=== PATIENT | male | born 1945 | race Caucasian/White ===

== ENCOUNTER 2017-04-12 09:00 | Outpatient (RCR) | payer OTHER, SELFPAY ==
--- NOTE | 2017-04-12 11:00 | IE_ITS ---
Date: April 12, 2017 Referring: Tien Galicia DO M.D. Diagnosis: L leg pain P.T. Diagnosis: Lumbago with L sciatica SUBJECTIVE: History of Present Illness: Kam complains of continuous discomfort throughout the lower lumbar area L greater than R. She is worse with lying and sitting. Interferes with sleeping pattern. Is most comfortable when lying on his R side. His symptoms also occur with weight bearing activities greater than 100 feet. Has a.m. stiffness for approximately 10-15 mins. His 2nd complaint is of continuous sciatica that is L buttock discomfort which migrates throughout the anterolateral aspect of the L thigh, knee and sometimes circumferentially throughout the entire L LE. He also notes occasional numb like sensation throughout the lower leg. These symptoms tend to occur with the same movement pattern and positions as the low back pain. Does not hurt with coughing or sneezing. He also complains of shortness of breath after walking greater than 100 feet. A 72 year old male who is well known to me in the past with chronic lumbago and L sciatica. Has had good response to PT in the past and is referred back. He has had 3 epidural injections last year without any change in his symptoms. Pain Ratin-8/10 Pain Location: Throughout the lower lumbar area, L pelvic brim greater than R as well as L buttock, anterolateral aspect of the R hip and thigh, circumferentially throughout the L lower leg. Current Level of Function: Significant difficultly donning and doffing shoes, socks, squatting, carrying items, performing household duties, walking more than 100 feet, stairclimbing, sitting or standing for more than 10-15 mins. Previous Treatment: Epidural injection, physical therapy. Social: Lives alone in [place], independent with all ADL's. Comorbidities: COPD, Diabetes, hypertension. Falls in the last year: __x__ No ____Yes - How many? ____ - (if over 2, balance SM needs to be completed) Reported hospitalizations in the last year - __x__ No ____ Yes - Dates of admission/reason: Medications: Oxycodone, insulin, Lyrica, Astatine. I do not have his drug list with me. Quality of Life: ____ Excellent __x__ Good ____ Fair ____ Poor Standardized Measures: LEFS score: 80% OBJECTIVE: Posture: Moderately obese, shoulders and pelvis are level with accentuated lumbar lordosis, (-) lateral shift. Observation: (behavior, atrophy, skin color, etc.) Talkative, complaints of pain with all maneuvers, anxious. Gait: Ambulates without assistive device without antalgia. Is able to walk on his heel and toes without weakness, but requires stand by supervision, with occasional contact guarding. Palpation: Has increased tone and tenderness throughout the lumbar paraspinals , QL, piriformis, gluts L greater than R. ROM: His lumbar movements in the upright position flexion distance between fingertips to floor is 6-7 with end range drawing throughout his low back area , to lesser degree hamstring. Extension is +10-15 degrees and sidebending is hypomobile as well as sidegliding. All these movements create discomfort throughout the low back area and pelvic brims depending on which direction he is moving in. His hip movements are limited within an articular pattern L greater than R. His L hip flexion is limited to approximately 90 degrees and IR at 0 degrees with end range discomfort throughout the lateral aspect of the L hip. No significant groin pain. His L knee motion is limited to -10-15 degrees of extension and flexion is at 135 without pain on movement, but end range discomfort throughout the anterior aspect of the knee. L knee motion is 0 to 140 degrees. Is hypomobile talocrural, subtalar and mid tarsal movements of the R ankle/foot complex, but without pain on movement. Joint Accessory Motion: He has hypomobility with pain when attempting PA glides to the thoracic and lumbar segments as well as costovertebral articulations. Strength: Has full motor control throughout, but fatigues quickly to the gluts with repetitive movements. Neuro: KJ's +2, AJ's +1 and symmetrical. Special Tests: (-) SLR bilaterally, but tight hamstrings on L at 45 degrees, R 60 degrees. Quad length 12 heel to buttocks L tighter than the R. Treatment: Today consisted of the evaluation along with development of a home exercise program and patient education. IE: [id number] Therapeutic procedures ([id number]). Direct treatment time: 60 mins Total treatment time: 60 mins ASSESSMENT: Patient is a 72-year-old male, referred for PT services with the diagnosis of L leg pain. Patient presents with clinical signs and symptoms consistent with lumbago with L sciatica, as demonstrated by the following impairment level findings: limitation throughout the entire spinal, hip, L knee articular structures, along with extensive soft tissue tightness and myofascial trigger points throughout the lumbar paraspinals, piriformis, QL's, gluts, etc. . . Impairments are contributing to the following functional limitations: pain with all positions, particularly with lying and sitting and inability to walk more than 100 feet or so. Patient is assessed as: ____ Low 41879 __x__ Moderate 74250 ____ High 84524 complexity, based on the following: History: (list) Chronic LBP and L sciatica along with diabetes, hyperlipidemia, COPD, hypertension, etc. . . Examination: (list) Significant functional impairments as above. Presentation: (list) Evolving Decision-Making: (list standardized measure) HIGH based on LEFS of 80% __x__ Patient requires skilled PT intervention to remediate the above functional limitations to return to: __x__ Premorbid level of function __x__ Improve QOL Prognosis: ____ Excellent __x__ Good __x__ Fair ____ Poor G-Codes (fill in modifier after appropriate code): Patient's primary functional limitation is in the category of: __x__ Mobility - walking and moving around : [id number] Projected goal: __X__ Mobility - walking and moving around: [id number] STG: __6__ weeks. 1: Increase spinal, hip and knee mobility along with decreasing myofascial trigger points and strengthening the core in hopes to reduce pain so he is more comfortable with sitting, lying, and can walk for greater than 500 feet, along with carrying out more of his household responsibilities, etc. . . LTG: __12__ weeks. 1: Improve quality of life 2: Return to premorbid level of function. PLAN: Session today consisted of the evaluation along with instructing and issuing him a written, and illustrated home exercise program consisting of lumbar, hip flexibility exercises, as well as stretching to ITB and hamstrings, and anti-gravity strengthening exercises to the gluts. Will see him 2x a week for next 4 weeks consisting of spinal and hip mobilization along with desensitization techniques, modalities prn. Possibly lumbar traction, which he has responded well to in the past. Will modify his program as symptoms dictate. Thank you for this referral. Please do not hesitate to contact me with any questions or concerns regarding this patient's plan of care. *Dr. Galicia, please sign this evaluation if you are in agreement with the above stated goals and plan of care. Tien Galicia, DO
--- NOTE | 2017-04-17 10:05 | PTTR_ITS ---
DATE: 04/17/17 SUBJECTIVE: Kam stating that most of his discomfort is located on the left low back into the buttock and down the lateral aspect of his leg. He reports he is very deconditioned due to his breathing issues and pain with his back. OBJECTIVE: Manual therapy: ([id number]). Pt receives lumbopelvic stretching including single knee to chest, piriformis stretch, hamstring stretching bilaterally. Unload lumbar spine via traction unilateral and bilaterally which gives pt good symptomatic relief. Mobilize left hip into flexion, abduction and IR/ER to his tolerance. In prone perform AP glides to the thoracic and lumbar spine gentle followed by STM to the QL, lumbar paraspinals, piriformis and gluteals. Trigger point release to the glut med and perform strumming to the paraspinals. He has tone noted to the right paraspinals and tenders through the right QL and I clear this out. He ends with non-billable estim and moist hot pack to the lumbar spine x 10 minutes in the prone position. Direct treatment time: 30 minutes Total treatment time: 45 minutes Seble Kohli PTA
== END 2017-04-17 ==
LOC: PT 10:55
PROVIDERS: PCP Family Medicine; Referring Provider Family Medicine; Visit Provider Family Medicine
DX: M54.42 Lumbago with sciatica, left side (principal)
CPT/HCPCS: 97110; 97140; 97162; G8978

== ENCOUNTER 2017-12-27 15:26 | Emergency (ER) | payer OTHER, SELFPAY ==
[2017-12-27] VITALS (16 sets, daily range): BP systolic 115–185; BP diastolic 51–84; PULSE 88–108; RESP 12–29; O2SAT 77–100
--- NOTE | 2017-12-27 15:23 | DI.RAD_ITS ---
SYMPTOM/DIAGNOSIS: STEMI, CHEST PAIN CHEST X-RAY: Portable AP view. Comparison 09/03/15. There is overlying monitoring equipment. Heart size appears within normal limits. There is a nasogastric tube which passes below the hemidiaphragms in to the left upper quadrant. There is an endotracheal tube present. The tip of the endotracheal tube is not well visualized on this examination. Consider repeat chest x-ray. There is diffuse prominence of the interstitium suggesting pulmonary venous congestion. No definite focal consolidating infiltrates are seen. No pleural effusion or pneumothorax is identified. IMPRESSION: 1. Findings suggesting diffuse pulmonary edema. 2. The tip of the endotracheal tube is not well visualized. Consider repeat chest x-ray.
--- NOTE | 2017-12-27 15:41 | W.ED.GENAD ---
Discharge Plan Disposition Patient Disposition: [facility] Condition: Critical Discharge Details Chief Complaint: CodeBlue Clinical Impression: ST elevation (STEMI) myocardial infarction Reason For Visit: JAYCEE Primary Care Provider: Tien Galicia ED Provider: Patrick Saenz Home Meds and New Rx's Prescriptions: No Action atorvastatin 20 mg tablet 20 mg PO DAILY Qty: 90 RF: 3 insulin detemir U-100 [Levemir FlexTouch U-100 Insuln] 100 unit/mL (3 mL) insulin pen 20 unit subcut QAM 30 Days Qty: 1 RF: 3 oxycodone 10 mg tablet 10 mg PO Q4H PRN MDD 30 mg 28 Days Qty: 56 RF: 0 aspirin 81 MG tablet,delayed release (DR/EC) 81 mg PO DAILY RF: 0 cyanocobalamin (vitamin B-12) [Vitamin B-12] 1,000 MCG tablet extended release 1,000 mcg PO DAILY RF: 0 cholecalciferol (vitamin D3) 1,000 UNIT tablet 1,000 unit PO DAILY RF: 0 KENALOG 0.1% CREAM 454 GM CR 1 melinda Topical PRN Qty: 1 RF: 11 omega-3 fatty acids-fish oil [Fish Oil] 1 EACH capsule 1 ea PO DAILY RF: 0 nebulizers [Devilbiss Disposable Nebulizer] 1 EACH misc 1 ea Miscellaneous QID PRNQty: 1 RF: 0 fluticasone [Flovent HFA] 120 PUFF HFA aerosol inhaler 2 inh Inhalation BID Qty: 1 RF: 6 blood-glucose meter 1 EACH misc 1 ea Miscellaneous BID Qty: 1 RF: 0 metformin 500 MG tablet 1,000 mg PO BID Qty: 360 RF: 3 umeclidinium-vilanterol [Anoro Ellipta] 1 EACH blister with device 1 ea Inhalation DAILY RF: 0 pen needle, diabetic [BD Ultra-Fine Rebecca Pen Needle] 1 EACH needle 1 ea Miscellaneous DAILY 30 Days Qty: 1 RF: 6 lancets 1 EACH misc 1 ea Miscellaneous BID Qty: 200 RF: 3 lancing device with lancets 1 EACH kit 1 ea Miscellaneous DAILY PRNQty: 1 RF: 0 blood sugar diagnostic [Blood Glucose Test] 1 EACH strip 1 ea Miscellaneous TID Qty: 200 RF: 6 spironolactone 25 MG tablet 25 mg PO DAILY 90 Days Qty: 90 RF: 3 cyclobenzaprine 10 MG tablet PO BID PRN30 Days Qty: 270 RF: 3 lisinopril 20 MG tablet 20 mg PO DAILY 90 Days Qty: 90 RF: 3 glipizide 5 MG tablet 5 mg PO BID Qty: 180 RF: 3 sitagliptin [Januvia] 50 MG tablet 50 mg PO DAILY 90 Days Qty: 90 RF: 3 pregabalin [Lyrica] 200 MG capsule PO BID MDD 600 90 Days Qty: 180 RF: 3 albuterol sulfate [ProAir HFA] 8.5 GM HFA aerosol inhaler 2 puff Inhalation Q2H PRNQty: 3 RF: 6 albuterol sulfate 1.25 MG/3 ML solution for nebulization 1.25 mg Inhalation QID Qty: 100 RF: 6 furosemide [Lasix] 20 MG tablet 20 mg PO DAILY PRN30 Days Qty: 30 RF: 0 triamcinolone acetonide 15 GM cream 1 melinda Topical TID 90 Days Qty: 1 RF: 11 fluticasone [Flonase Allergy Relief] 9.9 ML spray,suspension 2 spry NS DAILY Qty: 1 RF: 6 atenolol 100 MG tablet 100 mg PO BID Qty: 180 RF: 3 amlodipine 10 MG tablet 10 mg PO DAILY Qty: 90 RF: 3 fenofibrate 150 mg capsule 150 mg PO DAILY RF: 0 acetaminophen [Acetaminophen Extra Strength] 500 MG tablet 1,000 mg PO BID PRN PRNRF: 0 Medical Decision Making 72 yo male with hx of smoking 60pack year hx quit in 2012 per chart, HFpEF, dm, htn, who comes in with cc of chest pain. HE called ems and was also having sob. When ems arrived he went into cardiac arrest and after 5 minutes of cpr per ems he had rosc, this was with crew withotu monitor so inital rhythm wasn't seen. On arrival now he still has chest pain radiating down left arm and is hypoxic into the 80's. He is only able to speak in 2-3 word sentences. Given his significant respiratory distrss and apperance of difficulty airway anesthesia was called and intubated the pt. I gave asa, 300mg plav[place] [facility] [place] and I did not immediately give tnk because of the cpr but [place] [facility] [place] it be given sothis was given. RONAL was not flying so he will go by ground. He did confirm with me prior to intubation that he was full code and wanted everything done that could be done to keep him alive. PT intubated by anesthesia without incident, they obtained grade I view using glidescope. Xray on my read shows diffuse pulmonary edema so given IV lasix 40mg. His BP on propofol and nitro drips is now 130/60. Differential Diagnosis acs, stemi Imaging Data Radiologic Study: Attestation: I personally reviewed and interpreted this imaging study as follows: Imaging: X-Ray My impression: diffuse pulmonary edema, tip of et tube appears to be at ede Lab Data Lab results reviewed: Yes I reviewed the patient's lab results. ECG Data Attestation: I personally reviewed and interpreted this ECG (s) as follows: Prior ECG tracings: not available for review Interpretation: sinus rhythm, rate of 110, lbbb, per sgarbossa criteria stemi the patient's 1st ekg was unreadable due to artifact HPI General Mode of arrival: EMS. Date/Time Provider Initiated Documentation: 12/27/17 15:35. Limitations to Documentation: no limitations. Information obtained by: patient. History of Present Illness 72 year old M presents to the emergency department with the chief complaint of chest pain, described as severe, with intensity rated at 8. Quality is described as crushing, and is localized to the chest. Patient reports no radiation. Patient started experiencing this hour(s) (1) Related Data Home Medications Medication Instructions Recorded Confirmed aspirin 81 mg PO DAILY tab-cap 05/05/12 12/02/17 cyanocobalamin (vitamin B-12) 1,000 mcg PO DAILY 07/20/13 12/02/17 [Vitamin B-12] cholecalciferol (vitamin D3) 1,000 unit PO DAILY 11/12/13 12/02/17 omega-3 fatty acids-fish oil [Fish 1 ea PO DAILY 07/12/15 12/02/17 Oil] nebulizers [Devilbiss Disposable #1 ea 11/14/15 12/02/17 Nebulizer] fluticasone [Flovent HFA] 2 inh INHALATION BID #1 inh 01/02/16 12/02/17 blood-glucose meter #1 ea 09/03/16 12/02/17 acetaminophen [Acetaminophen Extra 1,000 mg PO BID PRN PRN 10/17/16 12/02/17 Strength] metformin 1,000 mg PO BID #360 tab-cap 01/21/17 12/02/17 umeclidinium-vilanterol [Anoro 1 ea INHALATION DAILY 03/11/17 12/02/17 Ellipta] pen needle, diabetic [BD #1 box 03/18/17 12/02/17 Ultra-Fine Rebecca Pen Needle] lancets #200 ea 04/25/17 12/02/17 lancing device with lancets #1 kit 04/26/17 12/02/17 blood sugar diagnostic [Blood #200 strip 06/10/17 12/02/17 Glucose Test] spironolactone 25 mg PO DAILY 90 Days #90 tab-cap 06/21/17 12/02/17 cyclobenzaprine 0 PO BID PRN 30 Days #270 tab-cap 08/16/17 12/02/17 glipizide 5 mg PO BID #180 tab 08/16/17 12/02/17 lisinopril 20 mg PO DAILY 90 Days #90 tab-cap 08/16/17 12/02/17 pregabalin [Lyrica] 0 PO BID 90 Days #180 tab-cap MDD 08/16/17 12/02/17 600 sitagliptin [Januvia] 50 mg PO DAILY 90 Days #90 tab-cap 08/16/17 12/02/17 albuterol sulfate [Proair Hfa] 2 puff INHALATION Q2H PRN #3 08/23/17 12/02/17 hfa.aer.ad albuterol sulfate 1.25 mg INHALATION QID #100 amp 08/30/17 12/02/17 furosemide [Lasix] 20 mg PO DAILY PRN 30 Days #30 08/30/17 12/02/17 tab-cap triamcinolone acetonide 1 melinda TOPICAL TID 90 Days #1 tube 09/13/17 12/02/17 fluticasone [Flonase Allergy 2 spry NS DAILY #1 unit 10/03/17 12/02/17 Relief] amlodipine 10 mg PO DAILY #90 tab-cap 10/07/17 12/02/17 atenolol 100 mg PO BID #180 tab-cap 10/07/17 12/02/17 fenofibrate 150 mg capsule 150 mg PO DAILY 11/21/17 12/02/17 atorvastatin 20 mg tablet 20 mg PO DAILY #90 tab 12/02/17 12/02/17 insulin detemir (U-100) 100 20 unit SUBCUT QAM 30 Days #1 ml 12/02/17 12/02/17 unit/mL (3 mL) subcutaneous pen oxycodone 10 mg tablet 10 mg PO Q4H PRN 28 Days #56 12/02/17 12/02/17 tab-cap MDD 30 mg Previous Rx's Medication Instructions Recorded metformin 1,000 mg PO BID #360 tab-cap 01/21/17 pen needle, diabetic [BD #1 box 03/18/17 Ultra-Fine Rebecca Pen Needle] lancets #200 ea 04/25/17 blood sugar diagnostic [Blood #200 strip 06/10/17 Glucose Test] spironolactone 25 mg PO DAILY 90 Days #90 tab-cap 06/21/17 glipizide 5 mg PO BID #180 tab 08/16/17 lisinopril 20 mg PO DAILY 90 Days #90 tab-cap 08/16/17 sitagliptin [Januvia] 50 mg PO DAILY 90 Days #90 tab-cap 08/16/17 albuterol sulfate 1.25 mg INHALATION QID #100 amp 08/30/17 triamcinolone acetonide 1 melinda TOPICAL TID 90 Days #1 tube 09/13/17 fluticasone [Flonase Allergy 2 spry NS DAILY #1 unit 10/03/17 Relief] amlodipine 10 mg PO DAILY #90 tab-cap 10/07/17 atenolol 100 mg PO BID #180 tab-cap 10/07/17 atorvastatin 20 mg tablet 20 mg PO DAILY #90 tab 12/02/17 insulin detemir (U-100) 100 20 unit SUBCUT QAM 30 Days #1 ml 12/02/17 unit/mL (3 mL) subcutaneous pen oxycodone 10 mg tablet 10 mg PO Q4H PRN 28 Days #56 12/02/17 tab-cap MDD 30 mg Allergies Allergy/AdvReac Type Severity Reaction Status Date / Time codeine AdvReac Intermediate GI Upset Verified 12/02/17 08:42 gabapentin AdvReac Intermediate Dizziness/L Verified 12/02/17 08:42 ightheade General Stated Complaint: CodeBlue HOWARD: 1 Review of Systems Review of Systems All systems reviewed & are unremarkable except as noted in HPI and below Constitutional Denies chills, Denies fever(s) and Denies weakness Eyes Denies loss of vision ENT Denies change in voice Cardiovascular Denies chest pain and Denies dyspnea Respiratory Denies dyspnea Gastrointestinal Denies abdominal pain, Denies nausea and Denies vomiting Genitourinary Denies dysuria Musculoskeletal Denies joint swelling Integumentary/Breasts Denies rash Neurologic Denies loss of vision and Denies weakness Psychiatric Denies depression Endocrine Denies cold intolerance and Denies heat intolerance Allergic/Immunologic Denies urticaria PFSH Family History Mother Cerebrovascular accident Father No problems noted. Brother No problems noted. 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/04/16) Nonallergic rhinitis (Resolved 01/28/15) Leg pain, left (Chronic 01/17/16) Left lumbar radiculopathy (Chronic 10/26/16) Hypertriglyceridemia (Chronic 12/31/14) Dyspnea on exertion (Chronic 09/20/15) Distal paresthesia (Chronic 02/16/14) DM w/o complication type II, uncontrolled (Chronic 11/12/13) DM neuro manif type II (Chronic) Chronic pain disorder (Chronic 10/26/16) Chronic obstructive pulmonary disease (Chronic 01/21/17) Adjustment disorder, unspecified (Resolved 09/03/16) Acute gastroenteritis (Resolved) Aortic stenosis (Resolved) Discharge planning issues (Resolved) Lumbar back pain with radiculopathy affecting left lower extremity (Chronic) Neuropathy, lateral femoral cutaneous nerve (Chronic) Influenza with respiratory manifestations (Resolved 04/16/14) Diabetes mellitus, type II (Chronic) Hypertension (Chronic) Hyperlipidemia (Chronic) Obesity (Chronic) Peripheral neuropathy (Chronic) Weakness (Chronic 04/16/14) s/p respiratory failure (Chronic 04/16/14) s/p mechanical ventilation (Chronic 04/16/14) Encounter for physical therapy (Chronic 04/16/14) Social History housing: apartment lives independently: Yes current occupational status: retired frequency: 5-6 times per week duration: 15-30 minutes/day Smoking/Tobacco Use Status: Current-Occasional tobacco type: cigars alcohol intake: current alcohol intake frequency: a few times a month water heater temp set < 120 deg: Yes working smoke detector in home: Yes fire extinguisher in home: Yes carbon monox detector in home: Yes Surgical History H/O surgical procedure (Chronic) Biopsy Skin of left episcopalian (12/10/14) Central line for TPN (03/31/14) Exam Const General: no acute distress Orientation: alert HENMT Head: normal to inspection Ears: external ears normal General nose exam: external nose normal Mouth: moist mucous membranes Eyes General: appearance normal, both eyes and all related structures Neck Neck: normal visual inspection Cardio Rate: regular rate Skin General skin exam: no rashes or lesions noted Neuro General: alert and oriented x3 Extrem General: normal to inspection Psych Mental Status: mental status grossly normal Course Vital Signs Pulse 107 H 12/27/17 15:29 Respiratory Rate 27 H 12/27/17 15:29 Blood Pressure 185/80 H 12/27/17 15:29 Pulse Oximetry 94 L 12/27/17 15:29 Pulse 107 H 12/27/17 15:29 Respiratory Rate 27 H 12/27/17 15:29 Respiratory Effort 12/27/17 15:36 Blood Pressure 185/80 H 12/27/17 15:29 Pulse Oximetry 94 L 12/27/17 15:29 Oxygen Delivery Method Non-Rebreather 12/27/17 15:29 Oxygen Flow Rate 10 12/27/17 15:29 Critical Care Time Critical Care Time: Yes Total Critical Care Time: 60 Attestation: time spent reviewing ekgs, lab review, initiating lyitcs and heparin and monitoring hemodynamics in patient with STEMI and requiring intubation for hypoxic respiratory failure
[2017-12-27] MEDS: Propofol 200 MG/20 ML VIAL 160 MG IVP (15:55)
[2017-12-27] MEDS: PROPOFOL 500 MG/50 ML BTL 28.53 MG IVPB (15:55)
[2017-12-27] MEDS: Rocuronium 50 MG/5 ML SYR IVP (15:55)
[2017-12-27 15:56] LABS: Abs Immature Grans 0.13 k/cumm (0.0-0.09); Absolute Eosinophil Count 0.29 k/cumm (0.0-0.7); Basophils % 0.4; Eosinophils % 1.8; HCT 49.6 % (40.0-50.0); HGB 16.7 g/dL (13.5-17.5); Immature Grans % 0.8; Lymphocytes % 45.7; Mean Corp. HGB Concentration 33.7 g/dL (32.0-36.0); Mean Corpuscular Hemoglobin 29.6 pg (27.0-33.0); Mean Corpuscular Volume 87.8 fL (80-95); Mean Platelet Volume 10.1 fL (8.0-11.0); Monocytes % 5.7; Neutrophils % 45.6; Platelet Count 272 x1000/uL (130-400); RBC 5.65 m/cumm (4.50-6.00); RBC Distribution Width 15.3 % (11.8-14.1); White Blood Cell Count 16.05 k/cumm (4.4-10.8)
[2017-12-27] MEDS: Tenecteplase 50 MG KIT IVP (15:58)
[2017-12-27] MEDS: Clopidogrel 300 MG TAB PO (16:05)
[2017-12-27] MEDS: Aspirin 81 MG CHEW 324 MG CH (16:05)
[2017-12-27 16:17] LABS: PTT Activated 20.6 sec (21.0-31.4)
[2017-12-27 16:18] LABS: Absolute Basophil Count 0.06 k/cumm (0.0-0.2); Absolute Lymphocyte Count 7.33 k/cumm (1.2-3.4); Absolute Monocyte Count 0.91 k/cumm (0.11-0.7); Absolute Neutrophil Count 7.32 k/cumm (1.2-6.7); Diff Comment Diff Reviewed; RBC Morphology Normal
[2017-12-27 16:25] LABS: ALT 31 U/L (12-78); AST 21 U/L (15-37); Albumin 4.1 g/dL (3.4-5.0); Alkaline Phosphatase 65 U/L (46-116); Anion Gap 15.3 mmol/L (3-11); BUN 33 mg/dL (7-18); Bilirubin, Total 0.3 mg/dL (0.2-1.0); CO2 23.7 mmol/L (21.0-32.0); CREATININE 2.45 mg/dL (0.70-1.30); Calcium 9.6 mg/dL (8.5-10.1); Chloride 101 mmol/L (98-107); Estimated GFR 26.12 (mL/min/1.73m2); Glucose 248 mg/dL (70-100); Magnesium 2.2 mg/dL (1.8-2.4); NT-proBNP 806 pg/mL; Potassium 4.1 mmol/L (3.5-5.1); Sodium 140 mmol/L (136-145); Total Protein 8.4 g/dL (6.4-8.2); Troponin I 0.02 ng/mL (0.00-0.06)
[2017-12-27] MEDS: Furosemide 40 MG/4 ML VIAL IVP (16:25)
--- NOTE | 2017-12-27 16:31 | DI.VRAD_ITS ---
EXAM: XR Chest, 1 View EXAM DATE/TIME: 12/27/2017 4:12 PM CLINICAL HISTORY: 72 years old, male; Condition or disease; Cardiovascular condition or disease; Other: Stemi; Patient HX: Stemi, chest pain TECHNIQUE: XR of the chest, 1 view. COMPARISON: CR CHEST 2 VIEWS PA,LAT 09/03/2015 1:39 PM FINDINGS: Tubes, catheters and devices: The endotracheal tube is present with poor delineation of the terminus of the endotracheal tube. An enteric tube is seen to course into the left upper quadrant with the proximal port seen beyond the gastroesophageal junction. Lungs: There is diffuse vascular congestion with prominence of interstitial and vascular lung markings. Early central consolidation is present suggesting diffuse edema. Pleural space: Unremarkable. No pleural effusion. No pneumothorax. Heart/Mediastinum: Unremarkable. No cardiomegaly. Bones/joints: Chronic osseous changes. IMPRESSION: 1. Limited evaluation of the endotracheal tube terminus. Consider repeat chest radiograph. 2. Diffuse pulmonary edema. Dictated and Authenticated by: Wyatt Crow MD. Ordering:GIGI LUA MD
== END 2017-12-27 16:34 | disposition short-term general hospital (02) ==
LOC: ER 16:53
PROVIDERS: Emergency Provider Emergency Medicine; PCP Family Medicine
DX: I21.3 ST elevation (STEMI) myocardial infarction of unspecified site (principal); I46.2 Cardiac arrest due to underlying cardiac condition; R09.02 Hypoxemia; R07.9 Chest pain, unspecified; J81.0 Acute pulmonary edema; F17.210 Nicotine dependence, cigarettes, uncomplicated; E11.9 Type 2 diabetes mellitus without complications; Z79.4 Long term (current) use of insulin; I10 Essential (primary) hypertension
CPT/HCPCS: 31500; 36415; 51702; 80053; 93005; 96365; 96368; 96375; 96376; 99291; 71045; 83735; 83880; 84484; 85025; 85610; 85730; 93010; J1940; J3101

== ENCOUNTER 2018-02-17 01:05 | Outpatient (CLI) | payer OTHER, SELFPAY ==
--- NOTE | 2018-02-17 13:50 | DI.CTLCSR_ITS ---
SYMPTOM/DIAGNOSIS: COPD, J44.9, Z87.891 LUNG CANCER SCREENING CHEST CT: A low dose exam was performed. There is a stable circumscribed nodule in the right middle lobe laterally. Other scattered calcified nodules are noted bilaterally. No new nodules, infiltrates or effusions are seen. There is no evidence of adenopathy. A pacemaker and proximal aortic stent are now seen. There is no pleural or pericardial effusion. IMPRESSION: Stable 3 mm. nodule in the right middle lobe. Continued low dose screening is recommended in one year. Lung-RAD Category: Lung RADS Category 2- Benign Appearance/Behavior Lung- RAD Management of Findings: (follow-up) Continue annual LDCT screening in 12 months
== END 2018-02-17 01:25 ==
PROVIDERS: PCP Family Medicine; Visit Provider Internal Medicine
DX: Z12.2 Encounter for screening for malignant neoplasm of respiratory organs (principal); J44.9 Chronic obstructive pulmonary disease, unspecified; R91.1 Solitary pulmonary nodule; Z87.891 Personal history of nicotine dependence; Z95.0 Presence of cardiac pacemaker
CPT/HCPCS: G0297

== ENCOUNTER 2018-04-15 07:52 | Outpatient (CLI) | payer OTHER, SELFPAY ==
[2018-04-15 09:32] LABS: ALT 34 U/L (12-78); AST 23 U/L (15-37); Albumin 4.7 g/dL (3.4-5.0); Alkaline Phosphatase 43 U/L (46-116); Anion Gap 12.7 mmol/L (3-11); BUN 45 mg/dL (7-18); Bilirubin, Total 0.5 mg/dL (0.2-1.0); CO2 27.3 mmol/L (21.0-32.0); CREATININE 2.23 mg/dL (0.70-1.30); Calcium 10.3 mg/dL (8.5-10.1); Chloride 102 mmol/L (98-107); Estimated GFR 29.03 (mL/min/1.73m2); Glucose 180 mg/dL (70-100); Potassium 4.9 mmol/L (3.5-5.1); Sodium 142 mmol/L (136-145); Total Protein 8.3 g/dL (6.4-8.2)
[2018-04-15 09:34] LABS: Cholesterol 200 mg/dL (50-200); HDL Cholesterol 21 mg/dL (40-60); LDL CHOLESTEROL 104 mg/dL (<100); Triglyceride 483 mg/dL (30-150)
== END 2018-04-15 08:12 ==
PROVIDERS: PCP Family Medicine; Visit Provider Family Medicine
DX: I25.10 Atherosclerotic heart disease of native coronary artery without angina pectoris (principal); N17.9 Acute kidney failure, unspecified
CPT/HCPCS: 36415; 80053; 80061; 83721

== ENCOUNTER 2018-05-02 10:12 | Inpatient (IN) | payer OTHER, SELFPAY ==
[2018-05-02] VITALS (59 sets, daily range): BP systolic 76–114; BP diastolic 37–79; PULSE 66–91; RESP 14–26; TEMP 35.8–36.5; O2SAT 80–99
--- NOTE | 2018-05-02 10:22 | DI.RAD_ITS ---
SYMPTOM/DIAGNOSIS: FEELS RESTLESS, H/O CAD PORTABLE AP CHEST: Comparison is made with 12/27/[address] of 02/17/18. A pacemaker is again noted. The heart size is within normal limits for projection. The lungs appear clear. IMPRESSION: No acute abnormality.
--- NOTE | 2018-05-02 10:24 | W.ED.GENAD ---
Discharge Plan Disposition Patient Disposition: [facility] INPATIENT Condition: Stable Discharge Details Chief Complaint: Chest Pain Clinical Impression: RLL pneumonia Reason For Visit: acute renal insufficiency Admit Date/Time: 05/02/18 12:26 Admit Provider: Patrick Moctezuma Attending Provider: Patrick Moctezuma Primary Care Provider: Tien Galicia ED Provider: Skip Griffin Medical Decision Making 73-year-old male presents from home via EMS after feeling restless and sensation that he was about to have recurrent myocardial infarction. He did not have chest pain or syncope. He took a single nitroglycerin with some improvement, was noted to have blood pressures in the 80s en route and was given 200 cc IV fluid by EMS. He continues to complain of restlessness and states is similar to restless leg syndrome he has had in the past. Patient has a history of sudden cardiac of unclear etiology as no underlying culprit lesion was identified. 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 He arrives emergency department feeling improved with blood pressure persistently hypotensive at 80. Patient was given 750 cc of fluid, placed on a shoe folder, referred for chest x-ray and laboratory testing. Records obtained from his most recent visit to [facility]. Case discussed with Dr. Mejia of cardiology at [facility]. EKG reviewed which she states is unchanged. Of note the patient has a BUN of 58 with Cr 3.1 day which is increased over baseline after out of hospital arrrest in the [facility] region per Dr. Mejia. She feels his baseline of BNP is approximately 800. Presentation is consistent with acute renal failure and intravascular hypovolumia. He has previously had a left ventricular ejection fraction of 40% per Dr. Mejia. She recommends admission, ongoing monitoring of labs and echocardiogram. Lab Data Lab results reviewed: Yes I reviewed the patient's lab results. Laboratory Results - last 24 hr 05/02/18 05/02/18 05/02/18 10:35 10:35 10:35 WBC 8.03 RBC 4.33 L Hgb 13.0 L Hct 37.7 L MCV 87.1 MCH 30.0 MCHC 34.5 RDW 15.4 H Plt Count 188 MPV 9.4 Immature Gran % 0.1 Neutrophils % 59.4 Lymphocytes % 32.1 Monocytes % 6.2 Eosinophils % 2.0 Basophils % 0.2 Absolute Neutrophils 4.76 Absolute Lymphocytes 2.58 Absolute Monocytes 0.50 Absolute Eosinophils 0.16 Absolute Basophils 0.02 PT 11.9 H INR 1.2 H APTT 20.7 L Sodium 140 Potassium 4.6 Chloride 104 Carbon Dioxide 21.5 Anion Gap 14.5 H BUN 58 H Creatinine 3.11 H Estimated GFR/1.73 m2 19.78 Glucose 182 H Calcium 9.5 Magnesium 1.6 L Total Bilirubin 0.3 AST 21 ALT 27 Alkaline Phosphatase 32 L Troponin I < 0.02 Total Protein 7.1 Albumin 3.9 ECG Data Attestation: I personally reviewed and interpreted this ECG (s) as follows: Prior ECG tracings: available for review Interpretation: Regular sinus rhythm, rate is 84 with bundle branch block morphology, intraventricular conduction delay, no ST segment elevation HPI General Mode of arrival: EMS. Date/Time Provider Initiated Documentation: 05/02/18 10:15. Limitations to Documentation: no limitations. Information obtained by: patient and EMS. History of Present Illness 73 year old M presents to the emergency department with the chief complaint of I feel restless, described as moderate and similar to prior episodes, Patient started experiencing this minute(s) and it has been now resolved. No relieving factors improve symptom(s), No exacerbating factors reported . Patient notes weakness. Patient did receive the following treatments prior to arrival, other (Nitroglycerin at home, 200 cc of IV fluid en route) Related Data Home Medications Medication Instructions Recorded Confirmed aspirin 81 mg PO DAILY tab-cap 05/05/12 04/15/18 Devilbiss Disposable Nebulizer #1 ea 11/14/15 04/15/18 blood-glucose meter #1 ea 09/03/16 04/15/18 acetaminophen [Acetaminophen Extra 1,000 mg PO BID PRN PRN 10/17/16 04/15/18 Strength] pen needle, diabetic [BD #1 box 03/18/17 04/15/18 Ultra-Fine Rebecca Pen Needle] lancets #200 ea 04/25/17 04/01/18 lancing device with lancets #1 kit 04/26/17 04/15/18 Blood Glucose Test #200 strip 06/10/17 04/15/18 cyclobenzaprine 0 PO BID PRN 30 Days #270 tab-cap 08/16/17 04/15/18 glipizide 5 mg PO BID #180 tab 08/16/17 04/15/18 lisinopril 20 mg PO DAILY 90 Days #90 tab-cap 08/16/17 04/15/18 sitagliptin [Januvia] 50 mg PO DAILY 90 Days #90 tab-cap 08/16/17 04/15/18 albuterol sulfate [Proair Hfa] 2 puff INHALATION Q2H PRN #3 08/23/17 04/15/18 hfa.aer.ad albuterol sulfate 1.25 mg INHALATION QID #100 amp 08/30/17 04/15/18 furosemide [Lasix] 20 mg PO DAILY PRN 30 Days #30 08/30/17 04/15/18 tab-cap triamcinolone acetonide 1 melinda TOPICAL TID 90 Days #1 tube 09/13/17 04/15/18 fluticasone propionate [Flonase 2 spry NS DAILY #1 unit 10/03/17 04/15/18 Allergy Relief] amlodipine 10 mg PO DAILY #90 tab-cap 10/07/17 04/15/18 fenofibrate 150 mg capsule 150 mg PO DAILY 11/21/17 04/15/18 insulin detemir (U-100) 100 20 unit SUBCUT QAM 30 Days #1 ml 12/02/17 04/15/18 unit/mL (3 mL) subcutaneous pen atorvastatin 20 mg tablet 60 mg PO DAILY tab 01/20/18 04/15/18 magnesium oxide 400 mg capsule 400 mg PO BID cap 01/20/18 04/15/18 melatonin 3 mg tablet 9 mg PO HS tab 01/20/18 04/15/18 nitroglycerin 0.4 mg sublingual 0.4 mg SL PRN tab 01/20/18 04/15/18 tablet colchicine 0.6 mg tablet 0.6 mg PO BID PRN #30 tab 01/24/18 04/15/18 metformin 500 mg tablet 1,000 mg PO BID #360 tab-cap 01/24/18 04/15/18 potassium chloride ER 10 mEq 10 meq PO DAILY 01/24/18 04/15/18 tablet,extended release spironolactone 25 mg tablet 25 mg PO DAILY 90 Days #90 tab-cap 01/24/18 04/15/18 atenolol 100 mg tablet 100 mg PO DAILY #180 tab-cap 03/21/18 04/15/18 pregabalin 200 mg capsule 400 mg PO BID #360 cap 03/21/18 04/15/18 carvedilol 12.5 mg tablet 12.5 mg PO QDAY tab 04/01/18 04/15/18 fluticasone fur. 100 mcg-umeclid 1 inh IH DAILY 04/01/18 04/15/18 62.5 mcg-vilant 25 mcg inhalat.powder oxycodone 10 mg tablet 10 mg PO .Q4 PRN #56 tab MDD 40 mg 04/15/18 04/15/18 oxycodone 10 mg tablet 10 mg PO Q4H PRN #56 tab MDD 40 mg 04/15/18 04/15/18 Previous Rx's Medication Instructions Recorded pen needle, diabetic [BD #1 box 03/18/17 Ultra-Fine Rebecca Pen Needle] lancets #200 ea 04/25/17 Blood Glucose Test #200 strip 06/10/17 glipizide 5 mg PO BID #180 tab 08/16/17 lisinopril 20 mg PO DAILY 90 Days #90 tab-cap 08/16/17 sitagliptin [Januvia] 50 mg PO DAILY 90 Days #90 tab-cap 08/16/17 albuterol sulfate 1.25 mg INHALATION QID #100 amp 08/30/17 triamcinolone acetonide 1 melinda TOPICAL TID 90 Days #1 tube 09/13/17 fluticasone propionate [Flonase 2 spry NS DAILY #1 unit 10/03/17 Allergy Relief] amlodipine 10 mg PO DAILY #90 tab-cap 10/07/17 insulin detemir (U-100) 100 20 unit SUBCUT QAM 30 Days #1 ml 12/02/17 unit/mL (3 mL) subcutaneous pen colchicine 0.6 mg tablet 0.6 mg PO BID PRN #30 tab 01/24/18 metformin 500 mg tablet 1,000 mg PO BID #360 tab-cap 01/24/18 spironolactone 25 mg tablet 25 mg PO DAILY 90 Days #90 tab-cap 01/24/18 atenolol 100 mg tablet 100 mg PO DAILY #180 tab-cap 03/21/18 pregabalin 200 mg capsule 400 mg PO BID #360 cap 03/21/18 oxycodone 10 mg tablet 10 mg PO .Q4 PRN #56 tab MDD 40 mg 04/15/18 oxycodone 10 mg tablet 10 mg PO Q4H PRN #56 tab MDD 40 mg 04/15/18 Allergies Allergy/AdvReac Type Severity Reaction Status Date / Time codeine AdvReac Intermediate GI Upset Verified 04/01/18 08:30 gabapentin AdvReac Intermediate Dizziness/L Verified 04/01/18 08:30 ightheade General Stated Complaint: Chest Pain HOWARD: 2 Review of Systems Review of Systems No chest pain, no syncope, states he has recently been well. Taking medications as prescribed. 8 systems reviewed and otherwise [facility] Medical History STEMI (ST elevation myocardial infarction) (Chronic) Sleep apnea (Chronic 12/28/15) Sciatica of left side (Chronic 03/26/16) Primary osteoarthritis involving multiple joints (Chronic 01/04/16) Pain in lower limb (Chronic 02/18/89) Nonallergic rhinitis (Resolved 01/28/15) Leg pain, left (Chronic 01/17/16) Left lumbar radiculopathy (Chronic 10/26/16) Hypertriglyceridemia (Chronic 12/31/14) Dyspnea on exertion (Chronic 09/20/15) Distal paresthesia (Chronic 02/16/14) DM w/o complication type II, uncontrolled (Chronic 11/12/13) DM neuro manif type II (Chronic) Chronic pain disorder (Chronic 10/26/16) Chronic obstructive pulmonary disease (Chronic 01/21/17) Adjustment disorder, unspecified (Resolved 09/03/16) Acute gastroenteritis (Resolved) Aortic stenosis (Resolved) Discharge planning issues (Resolved) Lumbar back pain with radiculopathy affecting left lower extremity (Chronic) Neuropathy, lateral femoral cutaneous nerve (Chronic) Influenza with respiratory manifestations (Resolved 04/16/14) Diabetes mellitus, type II (Chronic) Hypertension (Chronic) Hyperlipidemia (Chronic) Obesity (Chronic) Peripheral neuropathy (Chronic) Weakness (Chronic 04/16/14) s/p respiratory failure (Chronic 04/16/14) s/p mechanical ventilation (Chronic 04/16/14) Encounter for physical therapy (Chronic 04/16/14) Surgical History H/O surgical procedure (Chronic) Biopsy Skin of left [place] (12/10/14) Central line for TPN (03/31/14) Family History Mother Stroke Father No problems noted. Brother No problems noted. Social History Smoking/Tobacco Use Status: Current-Occasional Tobacco Type: cigarettes and cigars Tobacco: How many years used: 60 Alcohol Intake: former Drug use: Never Substance use type: does not use Housing: apartment Pets and animals: Yes Pets and animals: dog(s) Duration: 15-30 minutes/day Frequency: 5-6 times per week Seatbelt use: always Drive intox or ride w/intox dedicated local truck driver: No Water heater temp set <120 deg: Yes Working smoke detector in home: Yes Fire extinguisher in home: Yes Carbon monox detector in home: Yes Do you feel safe at home: Yes Do you feel safe in your relationship?: Yes Exam Narrative Exam Narrative: GEN: awake, alert, oriented 3. Pleasant, well groomed, interactive. HEAD: Normocephalic, atraumatic ENT: Mucous membranes moist, oropharynx unremarkable, External ear exam unremarkable EYES: PERRL, EOMI NECK: Full ROM, no CHARLES, no menigismus CHEST/RESP: Nontender, clear to auscultation bilateral, no wheeze/rhonchi/rales CARDIOVASCULAR: Heart sounds are distant, regular no murmur, rub wayne. 1+ Rad pulse bilateral ABDOMEN: Soft, nontender, no mass. +Bowel sounds EXT: Full ROM, no edema, no rash Neuro: Grossly normal neurologic exam, conversant, interactive. Psych: Speech fluent, thoughts congruent, affect normal Course Vital Signs Temperature 36.5 C 05/02/18 10:18 Pulse 85 05/02/18 10:18 Respiratory Rate 16 05/02/18 10:18 Blood Pressure 76/56 L 05/02/18 10:18 Pulse Oximetry 96 05/02/18 10:18 Temperature 36.5 C 05/02/18 10:18 Temperature Source Temporal Artery Scan 05/02/18 10:18 Pulse 85 03/15/19 10:18 Respiratory Rate 16 05/02/18 10:18 Blood Pressure 76/56 L 05/02/18 10:18 Blood Pressure Position Sitting 05/02/18 10:18 Pulse Oximetry 96 05/02/18 10:18 Oxygen Delivery Method Room Air 05/02/18 10:18 Oxygen Flow Rate 0 05/02/18 10:18 Pain Level 6 05/02/18 10:18
--- NOTE | 2018-05-02 10:27 | ED.GENADUL_ITS ---
Discharge Plan Disposition Patient Disposition: [facility] INPATIENT Condition: Stable Discharge Details Chief Complaint: Chest Pain Clinical Impression: RLL pneumonia Reason For Visit: acute renal insufficiency Admit Date/Time: 05/02/18 12:26 Admit Provider: Patrick Moctezuma Attending Provider: Patrick Moctezuma Primary Care Provider: Tien Galicia ED Provider: Skip Griffin Medical Decision Making 73-year-old male presents from home via EMS after feeling restless and sensation that he was about to have recurrent myocardial infarction. He did not have chest pain or syncope. He took a single nitroglycerin with some improvement, was noted to have blood pressures in the 80s en route and was given 200 cc IV fluid by EMS. He continues to complain of restlessness and states is similar to restless leg syndrome he has had in the past. Patient has a history of sudden cardiac of unclear etiology as no underlying culprit lesion was identified. 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 He arrives emergency department feeling improved with blood pressure persistently hypotensive at 80. Patient was given 750 cc of fluid, placed on a monitoring and evaluation advisor, referred for chest x-ray and laboratory testing. Records obtained from his most recent visit to [facility]. Case discussed with Dr. Julian mera of cardiology at [facility]. EKG reviewed which she states is unchanged. Of note the patient has a BUN of 58 with Cr 3.1 day which is increased over baseline after out [facility] hospital arrrest [facility] region per Dr. Mejia. She feels his baseline of BNP is approximately 800. Presentation is consistent with acute renal failure and intravascular hypovolumia. He has previously had a left ventricular ejection fraction of 40% per Dr. Mejia. She recommends admission, ongoing monitoring of labs and echocardiogram. Lab Data Lab results reviewed: Yes I reviewed the patient's lab results. Laboratory Results - last 24 hr 05/02/18 05/02/18 05/02/18 10:35 10:35 10:35 WBC 8.03 RBC 4.33 L Hgb 13.0 L Hct 37.7 L MCV 87.1 MCH 30.0 MCHC 34.5 RDW 15.4 H Plt Count 188 MPV 9.4 Immature Gran % 0.1 Neutrophils % 59.4 Lymphocytes % 32.1 Monocytes % 6.2 Eosinophils % 2.0 Basophils % 0.2 Absolute Neutrophils 4.76 Absolute Lymphocytes 2.58 Absolute Monocytes 0.50 Absolute Eosinophils 0.16 Absolute Basophils 0.02 PT 11.9 H INR 1.2 H APTT 20.7 L Sodium 140 Potassium 4.6 Chloride 104 Carbon Dioxide 21.5 Anion Gap 14.5 H BUN 58 H Creatinine 3.11 H Estimated GFR/1.73 m2 19.78 Glucose 182 H Calcium 9.5 Magnesium 1.6 L Total Bilirubin 0.3 AST 21 ALT 27 Alkaline Phosphatase 32 L Troponin I < 0.02 Total Protein 7.1 Albumin 3.9 ECG Data Attestation: I personally reviewed and interpreted this ECG (s) as follows: Prior ECG tracings: available for review Interpretation: Regular sinus rhythm, rate is 84 with bundle branch block morphology, intraventricular conduction delay, no ST segment elevation HPI General Mode of arrival: EMS . Date/Time Provider Initiated Documentation: 05/02/18 10:15 . Limitations to Documentation: no limitations . Information obtained by: patient and EMS . History of Present Illness 73 year old M presents to the emergency department with the chief complaint of I feel restless, described as moderate and similar to prior episodes, Patient started experiencing this minute(s) and it has been now resolved. No relieving factors improve symptom(s), No exacerbating factors reported . Patient notes weakness. Patient did receive the following treatments prior to arrival, other (Nitroglycerin at home, 200 cc of IV fluid en route) Related Data Home Medications Medication Instructions Recorded Confirmed aspirin 81 mg PO DAILY tab-cap 05/05/12 04/15/18 Devilbiss Disposable Nebulizer #1 ea 11/14/15 04/15/18 blood-glucose meter #1 ea 09/03/16 04/15/18 acetaminophen [Acetaminophen Extra 1,000 mg PO BID PRN PRN 10/17/16 04/15/18 Strength] pen needle, diabetic [BD #1 box 03/18/17 04/15/18 Ultra-Fine Rebecca Pen Needle] lancets #200 ea 04/25/17 04/01/18 lancing device with lancets #1 kit 04/26/17 04/15/18 Blood Glucose Test #200 strip 06/10/17 04/15/18 cyclobenzaprine 0 PO BID PRN 30 Days #270 tab-cap 06/29/18 02/26/19 glipizide 5 mg PO BID #180 tab 08/16/17 04/15/18 lisinopril 20 mg PO DAILY 90 Days #90 tab-cap 08/16/17 04/15/18 sitagliptin [Januvia] 50 mg PO DAILY 90 Days #90 tab-cap 08/16/17 04/15/18 albuterol sulfate [Proair Hfa] 2 puff INHALATION Q2H PRN #3 08/23/17 04/15/18 hfa.aer.ad albuterol sulfate 1.25 mg INHALATION QID #100 amp 08/30/17 04/15/18 furosemide [Lasix] 20 mg PO DAILY PRN 30 Days #30 08/30/17 04/15/18 tab-cap triamcinolone acetonide 1 melinda TOPICAL TID 90 Days #1 tube 09/13/17 04/15/18 fluticasone propionate [Flonase 2 spry NS DAILY #1 unit 10/03/17 04/15/18 Allergy Relief] amlodipine 10 mg PO DAILY #90 tab-cap 10/07/17 04/15/18 fenofibrate 150 mg capsule 150 mg PO DAILY 11/21/17 04/15/18 insulin detemir (U-100) 100 20 unit SUBCUT QAM 30 Days #1 ml 12/02/17 04/15/18 unit/mL (3 mL) subcutaneous pen atorvastatin 20 mg tablet 60 mg PO DAILY tab 01/20/18 04/15/18 magnesium oxide 400 mg capsule 400 mg PO BID cap 01/20/18 04/15/18 melatonin 3 mg tablet 9 mg PO HS tab 01/20/18 04/15/18 nitroglycerin 0.4 mg sublingual 0.4 mg SL PRN tab 01/20/18 04/15/18 tablet colchicine 0.6 mg tablet 0.6 mg PO BID PRN #30 tab 01/24/18 04/15/18 metformin 500 mg tablet 1,000 mg PO BID #360 tab-cap 01/24/18 04/15/18 potassium chloride ER 10 mEq 10 meq PO DAILY 01/24/18 04/15/18 tablet,extended release spironolactone 25 mg tablet 25 mg PO DAILY 90 Days #90 tab-cap 01/24/18 04/15/18 atenolol 100 mg tablet 100 mg PO DAILY #180 tab-cap 03/21/18 04/15/18 pregabalin 200 mg capsule 400 mg PO BID #360 cap 03/21/18 04/15/18 carvedilol 12.5 mg tablet 12.5 mg PO QDAY tab 04/01/18 04/15/18 fluticasone fur. 100 mcg-umeclid 1 inh IH DAILY 04/01/18 04/15/18 62.5 mcg-vilant 25 mcg inhalat.powder oxycodone 10 mg tablet 10 mg PO .Q4 PRN #56 tab MDD 40 mg 04/15/18 04/15/18 oxycodone 10 mg tablet 10 mg PO Q4H PRN #56 tab MDD 40 mg 04/15/18 04/15/18 Previous Rx's Medication Instructions Recorded pen needle, diabetic [BD #1 box 03/18/17 Ultra-Fine Rebecca Pen Needle] lancets #200 ea 04/25/17 Blood Glucose Test #200 strip 06/10/17 glipizide 5 mg PO BID #180 tab 08/16/17 lisinopril 20 mg PO DAILY 90 Days #90 tab-cap 08/16/17 sitagliptin [Januvia] 50 mg PO DAILY 90 Days #90 tab-cap 08/16/17 albuterol sulfate 1.25 mg INHALATION QID #100 amp 08/30/17 triamcinolone acetonide 1 melinda TOPICAL TID 90 Days #1 tube 09/13/17 fluticasone propionate [Flonase 2 spry NS DAILY #1 unit 10/03/17 Allergy Relief] amlodipine 10 mg PO DAILY #90 tab-cap 10/07/17 insulin detemir (U-100) 100 20 unit SUBCUT QAM 30 Days #1 ml 12/02/17 unit/mL (3 mL) subcutaneous pen colchicine 0.6 mg tablet 0.6 mg PO BID PRN #30 tab 01/24/18 metformin 500 mg tablet 1,000 mg PO BID #360 tab-cap 01/24/18 spironolactone 25 mg tablet 25 mg PO DAILY 90 Days #90 tab-cap 01/24/18 atenolol 100 mg tablet 100 mg PO DAILY #180 tab-cap 03/21/18 pregabalin 200 mg capsule 400 mg PO BID #360 cap 03/21/18 oxycodone 10 mg tablet 10 mg PO .Q4 PRN #56 tab MDD 40 mg 04/15/18 oxycodone 10 mg tablet 10 mg PO Q4H PRN #56 tab MDD 40 mg 04/15/18 Allergies Allergy/AdvReac Type Severity Reaction Status Date / Time codeine AdvReac Intermediate GI Upset Verified 04/01/18 08:30 gabapentin AdvReac Intermediate Dizziness/L Verified 04/01/18 08:30 ightheade General Stated Complaint: Chest Pain HOWARD: 2 Review of Systems Review of Systems No chest pain, no syncope, states he has recently been well. Taking medications as prescribed. 8 systems reviewed and otherwise [facility] Medical History STEMI (ST elevation myocardial infarction) (Chronic) Sleep apnea (Chronic 12/28/15) Sciatica of left side (Chronic 03/26/16) Primary osteoarthritis involving multiple joints (Chronic 01/04/16) Pain in lower limb (Chronic 02/18/89) Nonallergic rhinitis (Resolved 01/28/15) Leg pain, left (Chronic 01/17/16) Left lumbar radiculopathy (Chronic 10/26/16) Hypertriglyceridemia (Chronic 12/31/14) Dyspnea on exertion (Chronic 09/20/15) Distal paresthesia (Chronic 02/16/14) DM w/o complication type II, uncontrolled (Chronic 11/12/13) DM neuro manif type II (Chronic) Chronic pain disorder (Chronic 10/26/16) Chronic obstructive pulmonary disease (Chronic 01/21/17) Adjustment disorder, unspecified (Resolved 09/03/16) Acute gastroenteritis (Resolved) Aortic stenosis (Resolved) Discharge planning issues (Resolved) Lumbar back pain with radiculopathy affecting left lower extremity (Chronic) Neuropathy, lateral femoral cutaneous nerve (Chronic) Influenza with respiratory manifestations (Resolved 04/16/14) Diabetes mellitus, type II (Chronic) Hypertension (Chronic) Hyperlipidemia (Chronic) Obesity (Chronic) Peripheral neuropathy (Chronic) Weakness (Chronic 04/16/14) s/p respiratory failure (Chronic 04/16/14) s/p mechanical ventilation (Chronic 04/16/14) Encounter for physical therapy (Chronic 04/16/14) Surgical History H/O surgical procedure (Chronic) Biopsy Skin of left taoist (12/10/14) Central line for TPN (03/31/14) Family History Mother Stroke Father No problems noted. Brother No problems noted. Social History Smoking/Tobacco Use Status: Current-Occasional Tobacco Type: cigarettes and cigars Tobacco: How many years used: 60 Alcohol Intake: former Drug use: Never Substance use type: does not use Housing: apartment Pets and animals: Yes Pets and animals: dog(s) Duration: 15-30 minutes/day Frequency: 5-6 times per week Seatbelt use: always Drive intox or ride w/intox jinrikisha driver: No Water heater temp set <120 deg: Yes Working smoke detector in home: Yes Fire extinguisher in home: Yes Carbon monox detector in home: Yes Do you feel safe at home: Yes Do you feel safe in your relationship?: Yes Exam Narrative Exam Narrative: GEN: awake, alert, oriented 3. Pleasant, well groomed, interactive. HEAD: Normocephalic, atraumatic ENT: Mucous membranes moist, oropharynx unremarkable, External ear exam unremarkable EYES: PERRL, EOMI NECK: Full ROM, no CHARLES, no menigismus CHEST/RESP: Nontender, clear to auscultation bilateral, no wheeze/rhonchi/rales CARDIOVASCULAR: Heart sounds are distant, regular no murmur, rub wayne. 1+ Rad pulse bilateral ABDOMEN: Soft, nontender, no mass. +Bowel sounds EXT: Full ROM, no edema, no rash Neuro: Grossly normal neurologic exam, conversant, interactive. Psych: Speech fluent, thoughts congruent, affect normal Course Vital Signs Temperature 36.5 C 05/02/18 10:18 Pulse 85 05/02/18 10:18 Respiratory Rate 16 05/02/18 10:18 Blood Pressure 76/56 L 05/02/18 10:18 Pulse Oximetry 96 05/02/18 10:18 Temperature 36.5 C 05/02/18 10:18 Temperature Source Temporal Artery Scan 05/02/18 10:18 Pulse 85 05/02/18 10:18 Respiratory Rate 16 05/02/18 10:18 Blood Pressure 76/56 L 05/02/18 10:18 Blood Pressure Position Sitting 05/02/18 10:18 Pulse Oximetry 96 05/02/18 10:18 Oxygen Delivery Method Room Air 05/02/18 10:18 Oxygen Flow Rate 0 05/02/18 10:18 Pain Level 6 05/02/18 10:18
[2018-05-02 10:43] LABS: Abs Immature Grans 0.01 k/cumm (0.0-0.09); Absolute Basophil Count 0.02 k/cumm (0.0-0.2); Absolute Eosinophil Count 0.16 k/cumm (0.0-0.7); Absolute Lymphocyte Count 2.58 k/cumm (1.2-3.4); Absolute Neutrophil Count 4.76 k/cumm (1.2-6.7); Basophils % 0.2; HCT 37.7 % (40.0-50.0); Immature Grans % 0.1; Lymphocytes % 32.1; Mean Corp. HGB Concentration 34.5 g/dL (32.0-36.0); Mean Corpuscular Volume 87.1 fL (80-95); Mean Platelet Volume 9.4 fL (8.0-11.0); Monocytes % 6.2; Neutrophils % 59.4; Platelet Count 188 x1000/uL (130-400); RBC 4.33 m/cumm (4.50-6.00); RBC Distribution Width 15.4 % (11.8-14.1); White Blood Cell Count 8.03 k/cumm (4.4-10.8)
[2018-05-02 10:57] LABS: INR 1.2 (0.9-1.1); PTT Activated 20.7 sec (21.0-31.4); Prothrombin Time 11.9 sec (9.3-11.0)
[2018-05-02 10:59] LABS: ALT 27 U/L (12-78); AST 21 U/L (15-37); Albumin 3.9 g/dL (3.4-5.0); Alkaline Phosphatase 32 U/L (46-116); Anion Gap 14.5 mmol/L (3-11); BUN 58 mg/dL (7-18); Bilirubin, Total 0.3 mg/dL (0.2-1.0); CO2 21.5 mmol/L (21.0-32.0); CREATININE 3.11 mg/dL (0.70-1.30); Calcium 9.5 mg/dL (8.5-10.1); Chloride 104 mmol/L (98-107); Estimated GFR 19.78 (mL/min/1.73m2); Glucose 182 mg/dL (70-100); Magnesium 1.6 mg/dL (1.8-2.4); Potassium 4.6 mmol/L (3.5-5.1); Sodium 140 mmol/L (136-145); Total Protein 7.1 g/dL (6.4-8.2)
[2018-05-02 11:02] LABS: Troponin I < 0.02 ng/mL (0.00-0.06)
[2018-05-02 11:05] LABS: NT-proBNP 633 pg/mL
[2018-05-02] MEDS: oxyCODONE 5 MG TAB (11:07)
--- NOTE | 2018-05-02 12:47 | PDOC.ERCMPRO ---
Care Management Progress Note 05/02-Kam is a 73 year old male that lives alone in [place]. Kam is being admitted to the med/surg unit for acute renal failure. Kam has advance directives on file, Francia and Vilma are his agents, they are his first cousins. Kam's alternate agent is Luis who is his first cousin. Kam's PCP is Dr. Galicia and he has a [facility] replacement policy. Kam does not use any DME equipment, no lifeline, no meals on wheel, independent, and still drives. Kam states he uses his exercise bike when he can. Kam's director of payroll Mine Jacome from [place], will transport him home when ready for discharge.
--- NOTE | 2018-05-02 12:52 | CMPROGNOTE_ITS ---
Care Management Progress Note 05/02-Kam is a 73 year old male that lives alone in [place]. Kam is being admitted to the med/surg unit for acute renal failure. Kam has advance directives on file, Francia and Vilma are his agents, they are his first cousins. Kam's alternate agent is Luis who is his first cousin. Kam's PCP is Dr. Galicia and he has a [facility] replacement policy. Kam does not use any DME equipment, no lifeline, no meals on wheel, independent, and still drives. Kam states he uses his exercise bike when he can. Kam's coil tier Mine Jacome from [place], will transport him home when ready for discharge.
[2018-05-02] MEDS: MAGNESIUM SULFATE 1 GM/100 ML BAG IVPB (13:03)
[2018-05-02] MEDS: LORazepam 2 MG/ML VIAL 0.5 MG IVP (13:03)
--- NOTE | 2018-05-02 15:36 | W.PM.HP.N ---
Date of service: 05/02/18 Time of Service: 15:36 Assessment and Plan (1) Dehydration: Current visit: Yes Status: Acute In the setting of possible overdiuresis due to patient inadvertently taking double Lasix dose (possibly up to 80 mg BID?), as reported by the emergency department. This was not confirmed with the patient as he is too lethargic to answer specific questions. He is dry by labs and exam. Creatinine elevated from baseline at 3.11. He received IV fluids in the ED. Give normal saline cautiously at 100 mL's per hour times 1 L as he has a history of cardiomyopathy with LVEF of 40% on most recent echocardiogram at [facility]. Consider fluids beyond the 1 L as needed. (2) Acute kidney injury superimposed on chronic kidney disease: Current visit: Yes Status: Acute His creatinine is elevated to 3.11 as above. His baseline has been around 1.5, he has been 2.3-2.4 since his cardiac arrest in December 2017. Will give IV fluids overnight. Reassess BMP in the morning. (3) STEMI (ST elevation myocardial infarction): Current visit: No Status: Chronic Status post STEMI with cardiac arrest in December 2017. Presented with feeling of impending AK. Initial troponins less than 0.02 x 2. Continue to trend troponins. Monitor on telemetry. Echocardiogram ordered- discuss echo results with [facility] cardiology. Many cardiac medications on hold due to concern with hypotension. Monitor blood pressure. Resume medications as indicated. (4) Diabetes mellitus, type II: Current visit: No Status: Chronic Hold metformin while inpatient. Monitor blood glucose, cover with aspart per sensitive sliding scale. Adjust insulin as needed. (5) Chronic pain disorder: Current visit: No Status: Chronic Continue home oxycodone. Confirm medications when list obtained from PCP office. (6) Sleep apnea: Current visit: No Status: Chronic Unclear if he wears a CPAP machine. May use CPAP as needed (7) DVT prophylaxis: Current visit: Yes Status: Acute Subcutaneous heparin. (8) Discharge planning issues: Current visit: Yes Status: Acute He is a DNR/DNI. Nursing is working to obtain accurate medication list from his PCP office. This case was discussed with Dr. Moctezuma who is in agreement. History of Present Illness Chief Complaint: Restlessness and feeling of impending myocardial infarction. Narrative: Tha Sky, is a very pleasant 73-year-old man who has a past medical history significant for coronary artery disease, cardiac arrest in December 2017 due to STEMI for which he was treated at [facility] with cardiac catheterization with no stents placed, with implantation of defibrillator, CHF with most recent LVEF of 40% on Echocardiogram at [facility], aortic stenosis (moderate to severe), type 2 Diabetes with peripheral neuropathy, sleep apnea, hyperlipidemia, hypertension, chronic kidney disease, chronic pain, COPD, lumbar back pain with left lower extremity radiculopathy, history of ARDS in setting of infection with influenza at which time he required intubation and mechanical ventilation will transfer to [facility] 2014. He presented to the emergency department today reporting a feeling of restlessness and a sensation that he was going to have recurrent myocardial infarction. He denied chest pain or syncope. He did take one nitroglycerin tablet at home with some improvement. He was transported to the hospital via EMS. He was noted to have systolic blood pressures in the 70s and 80s and was given IV fluid bolus. He had some improvement in his blood pressure. His initial troponin was negative. His EKG showed normal sinus rhythm, heart rate in the 80s with bundle branch block morphology, intraventricular conduction delay, no ST segment elevation. Dr. Griffin, emergency department attending, discussed his case with cardiology at [facility]. EKG unchanged, Dr. Mejia, cardiology, feels his baseline BNP is approximately 800, previous LVEF reported to be 40%, presentation consistent with acute renal failure and intravascular hypovolemia. Dr. Mejia recommends admission, monitor renal function and echocardiogram. Of note, this is likely in the setting of overdiuresis related to the patient inadvertently taking double his Lasix dose. At the time of his presentation to the [facility] floor, he is very sleepy, he did receive IV Ativan in the emergency department. He is unable to fully engage in a complete review of systems, although, he reports that he feels better. He is admitted to the [facility] floor for further evaluation and monitoring. He will be monitored on telemetry, hold Lasix, give IV fluids, obtain echocardiogram and monitor labs. Review of Systems Review of Systems Unable to engage in full review of systems due to sedation related to Ativan administration in the emergency department. Denies chest pain/pressure, shortness of breath. PFSH Medical History STEMI (ST elevation myocardial infarction) (Chronic) Sleep apnea (Chronic 12/28/15) Sciatica of left side (Chronic 03/26/16) Primary osteoarthritis involving multiple joints (Chronic 01/04/16) Pain in lower limb (Chronic 02/18/89) Nonallergic rhinitis (Resolved 01/28/15) Leg pain, left (Chronic 01/17/16) Left lumbar radiculopathy (Chronic 10/26/16) Hypertriglyceridemia (Chronic 12/31/14) Dyspnea on exertion (Chronic 09/20/15) Distal paresthesia (Chronic 02/16/14) DM w/o complication type II, uncontrolled (Chronic 11/12/13) DM neuro manif type II (Chronic) Chronic pain disorder (Chronic 10/26/16) Chronic obstructive pulmonary disease (Chronic 01/21/17) Adjustment disorder, unspecified (Resolved 09/03/16) Acute gastroenteritis (Resolved) Aortic stenosis (Resolved) Discharge planning issues (Resolved) Lumbar back pain with radiculopathy affecting left lower extremity (Chronic) Neuropathy, lateral femoral cutaneous nerve (Chronic) Influenza with respiratory manifestations (Resolved 04/16/14) Diabetes mellitus, type II (Chronic) Hypertension (Chronic) Hyperlipidemia (Chronic) Obesity (Chronic) Peripheral neuropathy (Chronic) Weakness (Chronic 04/16/14) s/p respiratory failure (Chronic 04/16/14) s/p mechanical ventilation (Chronic 04/16/14) Encounter for physical therapy (Chronic 04/16/14) Surgical History H/O surgical procedure (Chronic) Biopsy Skin of left shinto (12/10/14) Central line for TPN (03/31/14) Family History Mother Stroke Father No problems noted. Brother No problems noted. 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 Water heater temp set <120 deg: Yes Working smoke detector in home: Yes Fire extinguisher in home: Yes Carbon monox detector in home: Yes Do you feel safe at home: Yes Do you feel safe in your relationship?: Yes Meds Home Medications Medication Instructions Recorded Confirmed Type aspirin 81 mg PO DAILY tab-cap 05/05/12 04/15/18 History Kenalog 0.1% Cream 1 melinda TOPICAL PRN #1 12/31/14 04/15/18 Clinic [facility] Disposable Nebulizer #1 ea 11/14/15 04/15/18 History blood-glucose meter #1 ea 09/03/16 04/15/18 History acetaminophen [Acetaminophen Extra 1,000 mg PO BID PRN PRN 10/17/16 04/15/18 History Strength] pen needle, diabetic [BD #1 box 03/18/17 04/15/18 Rx Ultra-Fine Rebecca Pen Needle] lancets #200 ea 04/25/17 04/01/18 Rx lancing device with lancets #1 kit 04/26/17 04/15/18 History Blood Glucose Test #200 strip 06/10/17 04/15/18 Rx cyclobenzaprine 0 PO BID PRN 30 Days #270 tab-cap 08/16/17 04/15/18 History glipizide 5 mg PO BID #180 tab 08/16/17 04/15/18 Rx lisinopril 20 mg PO DAILY 90 Days #90 tab-cap 08/16/17 04/15/18 Rx sitagliptin [Januvia] 50 mg PO DAILY 90 Days #90 tab-cap 08/16/17 04/15/18 Rx albuterol sulfate [Proair Hfa] 2 puff INHALATION Q2H PRN #3 08/23/17 04/15/18 History hfa.aer.ad albuterol sulfate 1.25 mg INHALATION QID #100 amp 08/30/17 04/15/18 Rx furosemide [Lasix] 20 mg PO DAILY PRN 30 Days #30 08/30/17 04/15/18 History tab-cap triamcinolone acetonide 1 melinda TOPICAL TID 90 Days #1 tube 09/13/17 04/15/18 Rx fluticasone propionate [Flonase 2 spry NS DAILY #1 unit 10/03/17 04/15/18 Rx Allergy Relief] amlodipine 10 mg PO DAILY #90 tab-cap 10/07/17 04/15/18 Rx fenofibrate 150 mg capsule 150 mg PO DAILY 11/21/17 04/15/18 History insulin detemir (U-100) 100 20 unit SUBCUT QAM 30 Days #1 ml 12/02/17 04/15/18 Rx unit/mL (3 mL) subcutaneous pen atorvastatin 20 mg tablet 60 mg PO DAILY tab 01/20/18 04/15/18 History magnesium oxide 400 mg capsule 400 mg PO BID cap 01/20/18 04/15/18 History melatonin 3 mg tablet 9 mg PO HS tab 01/20/18 04/15/18 History nitroglycerin 0.4 mg sublingual 0.4 mg SL PRN tab 01/20/18 04/15/18 History tablet colchicine 0.6 mg tablet 0.6 mg PO BID PRN #30 tab 01/24/18 04/15/18 Rx metformin 500 mg tablet 1,000 mg PO BID #360 tab-cap 01/24/18 04/15/18 Rx potassium chloride ER 10 mEq 10 meq PO DAILY 01/24/18 04/15/18 History tablet,extended release spironolactone 25 mg tablet 25 mg PO DAILY 90 Days #90 tab-cap 01/24/18 04/15/18 Rx atenolol 100 mg tablet 100 mg PO DAILY #180 tab-cap 03/21/18 04/15/18 Rx pregabalin 200 mg capsule 400 mg PO BID #360 cap 03/21/18 04/15/18 Rx carvedilol 12.5 mg tablet 12.5 mg PO QDAY tab 04/01/18 04/15/18 History fluticasone fur. 100 mcg-umeclid 1 inh IH DAILY 04/01/18 04/15/18 History 62.5 mcg-vilant 25 mcg inhalat.powder oxycodone 10 mg tablet 10 mg PO .Q4 PRN #56 tab MDD 40 mg 04/15/18 04/15/18 Rx oxycodone 10 mg tablet 10 mg PO Q4H PRN #56 tab MDD 40 mg 04/15/18 04/15/18 Rx Allergies Allergy/AdvReac Type Severity Reaction Status Date / Time codeine AdvReac Intermediate GI Upset Verified 04/01/18 08:30 gabapentin AdvReac Intermediate Dizziness/L Verified 04/01/18 08:30 ightheade Exam Narrative Exam Narrative: General: 73-year-old man, appears younger than stated age, overweight, lying in bed with head of bed elevated, in no acute distress. HEENT: Normocephalic, atraumatic, pupils equal and round, extraocular movements intact, mucous membranes very dry. Neck: Supple, no JVD. Respiratory: Respirations even and unlabored, rales right base, expiratory wheezes bilaterally. Cardiovascular: Heart has regular rhythm, 2/6 murmur noted at left sternal border. GI: Softly distended, normoactive bowel sounds throughout, nontender on palpation. Extremities: Well perfused, no edema, pedal pulses palpable bilaterally. Results Labs : 05/02/18 10:35 05/02/18 10:35 Laboratory Results - last 24 hr 05/02/18 05/02/18 05/02/18 10:35 10:35 10:35 WBC 8.03 RBC 4.33 L Hgb 13.0 L Hct 37.7 L MCV 87.1 MCH 30.0 MCHC 34.5 RDW 15.4 H Plt Count 188 MPV 9.4 Immature Gran % 0.1 Neutrophils % 59.4 Lymphocytes % 32.1 Monocytes % 6.2 Eosinophils % 2.0 Basophils % 0.2 Absolute Neutrophils 4.76 Absolute Lymphocytes 2.58 Absolute Monocytes 0.50 Absolute Eosinophils 0.16 Absolute Basophils 0.02 PT 11.9 H INR 1.2 H APTT 20.7 L Sodium 140 Potassium 4.6 Chloride 104 Carbon Dioxide 21.5 Anion Gap 14.5 H BUN 58 H Creatinine 3.11 H Estimated GFR/1.73 m2 19.78 Glucose 182 H Calcium 9.5 Magnesium 1.6 L Total Bilirubin 0.3 AST 21 ALT 27 Alkaline Phosphatase 32 L Troponin I < 0.02 NT-Pro-B Natriuret Pep Total Protein 7.1 Albumin 3.9 05/02/18 10:35 WBC RBC Hgb Hct MCV MCH MCHC RDW Plt Count MPV Immature Gran % Neutrophils % Lymphocytes % Monocytes % Eosinophils % Basophils % Absolute Neutrophils Absolute Lymphocytes Absolute Monocytes Absolute Eosinophils Absolute Basophils PT INR APTT Sodium Potassium Chloride Carbon Dioxide Anion Gap BUN Creatinine Estimated GFR/1.73 m2 Glucose Calcium Magnesium Total Bilirubin AST ALT Alkaline Phosphatase Troponin I NT-Pro-B Natriuret Pep 633 H Total Protein Albumin Last Vital Signs Temp 36.5 C 05/02/18 14:18 Pulse 72 05/02/18 15:26 Resp 19 05/02/18 14:18 BP 89/47 L 05/02/18 14:18 Pulse Ox 95 05/02/18 14:18
--- NOTE | 2018-05-02 15:41 | HPE_ITS ---
Date of service: 05/02/18 Time of Service: 15:36 Assessment and Plan (1) Dehydration: Current visit: Yes Status: Acute In the setting of possible overdiuresis due to patient inadvertently taking double Lasix dose (possibly up to 80 mg BID?), as reported by the emergency department. This was not confirmed with the patient as he is too lethargic to answer specific questions. He is dry by labs and exam. Creatinine elevated from baseline at 3.11. He received IV fluids in the ED. Give normal saline cautiously at 100 mL's per hour times 1 L as he has a history of cardiomyopathy with LVEF of 40% on most recent echocardiogram at [facility]. Consider fluids beyond the 1 L as needed. (2) Acute kidney injury superimposed on chronic kidney disease: Current visit: Yes Status: Acute His creatinine is elevated to 3.11 as above. His baseline has been around 1.5, he has been 2.3-2.4 since his cardiac arrest in December 2017. Will give IV fluids overnight. Reassess BMP in the morning. (3) STEMI (ST elevation myocardial infarction): Current visit: No Status: Chronic Status post STEMI with cardiac arrest in December 2017. Presented with feeling of impending CA. Initial troponins less than 0.02 x 2. Continue to trend troponins. Monitor on telemetry. Echocardiogram ordered- discuss echo results with [facility] cardiology. Many cardiac medications on hold due to concern with hypotension. Monitor blood pressure. Resume medications as indicated. (4) Diabetes mellitus, type II: Current visit: No Status: Chronic Hold metformin while inpatient. Monitor blood glucose, cover with aspart per sensitive sliding scale. Adjust insulin as needed. (5) Chronic pain disorder: Current visit: No Status: Chronic Continue home oxycodone. Confirm medications when list obtained from PCP office. (6) Sleep apnea: Current visit: No Status: Chronic Unclear if he wears a CPAP machine. May use CPAP as needed (7) DVT prophylaxis: Current visit: Yes Status: Acute Subcutaneous heparin. (8) Discharge planning issues: Current visit: Yes Status: Acute He is a DNR/DNI. Nursing is working to obtain accurate medication list from his PCP office. This case was discussed with Dr. Moctezuma who is in agreement. History of Present Illness Chief Complaint: Restlessness and feeling of impending myocardial infarction. Narrative: Tha Sky, is a very pleasant 73-year-old man who has a past medical history significant for coronary artery disease, cardiac arrest in December 2017 due to STEMI for which he was treated at [facility] with cardiac catheterization with no stents placed, with implantation of defibrillator, CHF with most recent LVEF of 40% on Echocardiogram at [facility], aortic stenosis (moderate to severe), type 2 Diabetes with peripheral neuropathy, sleep apnea, hyperlipidemia, hypertension, chronic kidney disease, chronic pain, COPD, lumbar back pain with left lower extremity radiculopathy, history of ARDS in setting of infection with influenza at which time he required intubation and mechanical ventilation will transfer to [facility] in 2014. He presented to the emergency department today reporting a feeling of restlessness and a sensation that he was going to have recurrent myocardial infarction. He denied chest pain or syncope. He did take one nitroglycerin tablet at home with some improvement. He was transported to the hospital via EMS. He was noted to have systolic blood pressures in the 70s and 80s and was given IV fluid bolus. He had some improvement in his blood pressure. His initial troponin was negative. His EKG showed normal sinus rhythm, heart rate in the 80s with bundle branch block morphology, intraventricular conduction delay, no ST segment elevation. Dr. Griffin, emergency department attending, discussed his case with cardiology at [facility]. EKG unchanged, Dr. Mejia, cardiology, feels his baseline BNP is approximately 800, previous LVEF reported to be 40%, presentation consistent with acute renal failure and intravascular hypovolemia. Dr. Mejia recommends admission, monitor renal function and echocardiogram. Of note, this is likely in the setting of overdiuresis related to the patient inadvertently taking double his Lasix dose. [facility], he is very sleepy, he did receive IV Ativan in the emergency department. He is unable to fully engage in a complete review of systems, although, he reports that he feels better. He is admitted to the MedSur floor for further evaluation and monitoring. He will be monitored on telemetry, hold Lasix, give IV fluids, obtain echocardiogram and monitor labs. Review of Systems Review of Systems Unable to engage in full review of systems due to sedation related to Ativan ad ministration in the emergency department. Denies chest pain/pressure, shortness of breath. [facility] Medical History STEMI (ST elevation myocardial infarction) (Chronic) Sleep apnea (Chronic 12/28/15) Sciatica of left side (Chronic 03/26/16) Primary osteoarthritis involving multiple joints (Chronic 01/04/16) Pain in lower limb (Chronic 02/18/89) Nonallergic rhinitis (Resolved 01/28/15) Leg pain, left (Chronic 01/17/16) Left lumbar radiculopathy (Chronic 10/26/16) Hypertriglyceridemia (Chronic 12/31/14) Dyspnea on exertion (Chronic 09/20/15) Distal paresthesia (Chronic 02/16/14) DM w/o complication type II, uncontrolled (Chronic 11/12/13) DM neuro manif type II (Chronic) Chronic pain disorder (Chronic 10/26/16) Chronic obstructive pulmonary disease (Chronic 01/21/17) Adjustment disorder, unspecified (Resolved 09/03/16) Acute gastroenteritis (Resolved) Aortic stenosis (Resolved) Discharge planning issues (Resolved) Lumbar back pain with radiculopathy affecting left lower extremity (Chronic) Neuropathy, lateral femoral cutaneous nerve (Chronic) Influenza with respiratory manifestations (Resolved 04/16/14) Diabetes mellitus, type II (Chronic) Hypertension (Chronic) Hyperlipidemia (Chronic) Obesity (Chronic) Peripheral neuropathy (Chronic) Weakness (Chronic 04/16/14) s/p respiratory failure (Chronic 04/16/14) s/p mechanical ventilation (Chronic 04/16/14) Encounter for physical therapy (Chronic 04/16/14) Surgical History H/O surgical procedure (Chronic) Biopsy Skin of left lutheran (12/10/14) Central line for TPN (03/31/14) Family History Mother Stroke Father No problems noted. Brother No problems noted. 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 Water heater temp set <120 deg: Yes Working smoke detector in home: Yes Fire extinguisher in home: Yes Carbon monox detector in home: Yes Do you feel safe at home: Yes Do you feel safe in your relationship?: Yes Meds Home Medications Medication Instructions Recorded Confirmed Type aspirin 81 mg PO DAILY tab-cap 05/05/12 04/15/18 History Kenalog 0.1% Cream 1 melinda TOPICAL PRN #1 12/31/14 04/15/18 Clinic [facility] Disposable Nebulizer #1 ea 11/14/15 04/15/18 History blood-glucose meter #1 ea 09/03/16 04/15/18 History acetaminophen [Acetaminophen Extra 1,000 mg PO BID PRN PRN 10/17/16 04/15/18 History Strength] pen needle, diabetic [BD #1 box 03/18/17 04/15/18 Rx Ultra-Fine Rebecca Pen Needle] lancets #200 ea 04/25/17 04/01/18 Rx lancing device with lancets #1 kit 04/26/17 04/15/18 History Blood Glucose Test #200 strip 06/10/17 04/15/18 Rx cyclobenzaprine 0 PO BID PRN 30 Days #270 tab-cap 08/16/17 04/15/18 History glipizide 5 mg PO BID #180 tab 08/16/17 04/15/18 Rx lisinopril 20 mg PO DAILY 90 Days #90 tab-cap 08/16/17 04/15/18 Rx sitagliptin [Januvia] 50 mg PO DAILY 90 Days #90 tab-cap 08/16/17 04/15/18 Rx albuterol sulfate [Proair Hfa] 2 puff INHALATION Q2H PRN #3 08/23/17 04/15/18 History hfa.aer.ad albuterol sulfate 1.25 mg INHALATION QID #100 amp 08/30/17 04/15/18 Rx furosemide [Lasix] 20 mg PO DAILY PRN 30 Days #30 08/30/17 04/15/18 History tab-cap triamcinolone acetonide 1 melinda TOPICAL TID 90 Days #1 tube 09/13/17 04/15/18 Rx fluticasone propionate [Flonase 2 spry NS DAILY #1 unit 10/03/17 04/15/18 Rx Allergy Relief] amlodipine 10 mg PO DAILY #90 tab-cap 10/07/17 04/15/18 Rx fenofibrate 150 mg capsule 150 mg PO DAILY 11/21/17 04/15/18 History insulin detemir (U-100) 100 20 unit SUBCUT QAM 30 Days #1 ml 12/02/17 04/15/18 Rx unit/mL (3 mL) subcutaneous pen atorvastatin 20 mg tablet 60 mg PO DAILY tab 01/20/18 04/15/18 History magnesium oxide 400 mg capsule 400 mg PO BID cap 01/20/18 04/15/18 History melatonin 3 mg tablet 9 mg PO HS tab 01/20/18 04/15/18 History nitroglycerin 0.4 mg sublingual 0.4 mg SL PRN tab 01/20/18 04/15/18 History tablet colchicine 0.6 mg tablet 0.6 mg PO BID PRN #30 tab 01/24/18 04/15/18 Rx metformin 500 mg tablet 1,000 mg PO BID #360 tab-cap 01/24/18 04/15/18 Rx potassium chloride ER 10 mEq 10 meq PO DAILY 01/24/18 04/15/18 History tablet,extended release spironolactone 25 mg tablet 25 mg PO DAILY 90 Days #90 tab-cap 01/24/18 04/15/18 Rx atenolol 100 mg tablet 100 mg PO DAILY #180 tab-cap 03/21/18 04/15/18 Rx pregabalin 200 mg capsule 400 mg PO BID #360 cap 03/21/18 04/15/18 Rx carvedilol 12.5 mg tablet 12.5 mg PO QDAY tab 04/01/18 04/15/18 History fluticasone fur. 100 mcg-umeclid 1 inh IH DAILY 04/01/18 04/15/18 History 62.5 mcg-vilant 25 mcg inhalat.powder oxycodone 10 mg tablet 10 mg PO .Q4 PRN #56 tab MDD 40 mg 04/15/18 04/15/18 Rx oxycodone 10 mg tablet 10 mg PO Q4H PRN #56 tab MDD 40 mg 04/15/18 04/15/18 Rx Allergies Allergy/AdvReac Type Severity Reaction Status Date / Time codeine AdvReac Intermediate GI Upset Verified 04/01/18 08:30 gabapentin AdvReac Intermediate Dizziness/L Verified 04/01/18 08:30 ightheade Exam Narrative Exam Narrative: General: 73-year-old man, appears younger than stated age, overweight, lying in bed with head of bed elevated, in no acute distress. HEENT: Normocephalic, atraumatic, pupils equal and round, extraocular movements intact, mucous membranes very dry. Neck: Supple, no JVD. Respiratory: Respirations even and unlabored, rales right base, expiratory wheezes bilaterally. Cardiovascular: Heart has regular rhythm, 2/6 murmur noted at left sternal border. GI: Softly distended, normoactive bowel sounds throughout, nontender on palpation. Extremities: Well perfused, no edema, pedal pulses palpable bilaterally. Results Labs : 05/02/18 10:35 05/02/18 10:35 Laboratory Results - last 24 hr 05/02/18 05/02/18 05/02/18 10:35 10:35 10:35 WBC 8.03 RBC 4.33 L Hgb 13.0 L Hct 37.7 L MCV 87.1 MCH 30.0 MCHC 34.5 RDW 15.4 H Plt Count 188 MPV 9.4 Immature Gran % 0.1 Neutrophils % 59.4 Lymphocytes % 32.1 Monocytes % 6.2 Eosinophils % 2.0 Basophils % 0.2 Absolute Neutrophils 4.76 Absolute Lymphocytes 2.58 Absolute Monocytes 0.50 Absolute Eosinophils 0.16 Absolute Basophils 0.02 PT 11.9 H INR 1.2 H APTT 20.7 L Sodium 140 Potassium 4.6 Chloride 104 Carbon Dioxide 21.5 Anion Gap 14.5 H BUN 58 H Creatinine 3.11 H Estimated GFR/1.73 m2 19.78 Glucose 182 H Calcium 9.5 Magnesium 1.6 L Total Bilirubin 0.3 AST 21 ALT 27 Alkaline Phosphatase 32 L Troponin I < 0.02 NT-Pro-B Natriuret Pep Total Protein 7.1 Albumin 3.9 05/02/18 10:35 WBC RBC Hgb Hct MCV MCH MCHC RDW Plt Count MPV Immature Gran % Neutrophils % Lymphocytes % Monocytes % Eosinophils % Basophils % Absolute Neutrophils Absolute Lymphocytes Absolute Monocytes Absolute Eosinophils Absolute Basophils PT INR APTT Sodium Potassium Chloride Carbon Dioxide Anion Gap BUN Creatinine Estimated GFR/1.73 m2 Glucose Calcium Magnesium Total Bilirubin AST ALT Alkaline Phosphatase Troponin I NT-Pro-B Natriuret Pep 633 H Total Protein Albumin Last Vital Signs Temp 36.5 C 05/02/18 14:18 Pulse 72 05/02/18 15:26 Resp 19 05/02/18 14:18 BP 89/47 L 05/02/18 14:18 Pulse Ox 95 05/02/18 14:18
[2018-05-02] MEDS: Heparin 5,000 UNITS/ML VIAL 5000 UNITS SC ×2 (15:45→23:09)
[2018-05-02] MEDS: Acetaminophen 325 MG TAB PO (15:45)
[2018-05-02] MEDS: Normal Saline 1,000 ML 100 ML IV (15:45)
--- NOTE | 2018-05-02 16:05 | MERGE_ITS ---
*[facility]* *[facility]* [address] [place] [address] Date of study: 05/02/2018 Transthoracic Echocardiography M-mode, complete 2D, complete spectral Doppler, and color Doppler *STUDY CONCLUSIONS* Impressions: Excellent prosthetic valve function without evidence for perivalvular leak. Other valves unchanged. Summary: 1. Left ventricle: The cavity size was normal. Wall thickness was increased in a pattern of moderate LVH. Systolic function was hyperdynamic. The estimated ejection fraction was 65-70%. Wall motion was normal; there were no regional wall motion abnormalities. 2. Aortic valve: A bioprosthesis was present and functioning normally. Peak velocity (S): 2.3m/sec. Mean gradient (S): 13.6mm Hg. Valve area (Vmean): 1.5cm^2. 3. Mitral valve: Severely calcified annulus. 4. Left atrium: The atrium was mildly dilated. 5. Right ventricle: The cavity size was normal. Wall thickness was normal. Cardiac device wire noted in right ventricle. Systolic function was normal. 6. Right atrium: The atrium was dilated. *PATIENT PRESENTATION* Height: 167.6cm ((66in) ) S/D Pressure: 89 / 47 Weight: 93kg ((204.6lb) ) BSA: 2.12m^2 Test start time: 04:05 PM. Test stop time: 05:00 PM. PERFORMING Unknown PERFORMING [facility] DOUBLE END [place] OPERATOR Lynn Geiger, (R)(CT), [facility] ORDERING Leena Sal REFERRING Leena Sal CONSULTING Tien Galicia *PROCEDURE DATA* Procedure information: The patient was identified by two identifiers. This study was interpreted by [facility]. Pertinent images and digital data are archived for permanent storage and are available for subsequent review. Comparison was made to the study of February 2017. Study status: STAT. Transthoracic echocardiography. M-mode, complete 2D, complete spectral Doppler, and color Doppler. A Transthoracic Echocardiogram was performed. Scanning was performed from the parasternal, apical, subcostal, and suprasternal notch acoustic windows. Images were obtained using an [id number] cardiac ultrasound machine. Image quality was adequate. Study completion: The patient tolerated the procedure well. There were no complications. *CARDIAC ANATOMY* Left ventricle: The cavity size was normal. Wall thickness was increased in a pattern of moderate LVH. Systolic function was hyperdynamic. The estimated ejection fraction was 65-70%. Wall motion was normal; there were no regional wall motion abnormalities. Aortic valve: A bioprosthesis was present and functioning normally. Doppler: Transvalvular velocity was within the normal range. There was no stenosis. There was no significant regurgitation. VTI ratio of LVOT to aortic valve: 0.56. Valve area (VTI): 1.5cm^2. Indexed valve area (VTI): 0.7cm^2/m^2. Peak velocity ratio of LVOT to aortic valve: 0.54. Valve area (Vmax): 1.5cm^2. Indexed valve area (Vmax): 0.7cm^2/m^2. Mean velocity ratio of LVOT to aortic valve: 0.54. Valve area (Vmean): 1.5cm^2. Indexed valve area (Vmean): 0.7cm^2/m^2. Mean gradient (S): 13.6mm Hg. Peak gradient (S): 22mm Hg. Aorta: Aortic root: The aortic root was normal in size. Ascending aorta: The ascending aorta was normal in size. Mitral valve: Severely calcified annulus. Mobility was not restricted. Doppler: Transvalvular velocity was within the normal range. There was no evidence for stenosis. There was no significant regurgitation. Valve area by pressure half-time: 2.1cm^2. Indexed valve area by pressure half-time: 1cm^2/m^2. Peak gradient (D): 4.3mm Hg. Left atrium: The atrium was mildly dilated. Right ventricle: The cavity size was normal. Wall thickness was normal. Cardiac device wire noted in right ventricle. Systolic function was normal. Pulmonic valve: Structurally normal valve. Doppler: Transvalvular velocity was within the normal range. There was no evidence for stenosis. There was no significant regurgitation. Peak gradient (S): 4.7mm Hg. Tricuspid valve: Structurally normal valve. Doppler: Transvalvular velocity was within the normal range. There was no evidence for stenosis. There was mild regurgitation. Pulmonary artery: Systolic pressure could not be accurately estimated. Right atrium: The atrium was dilated. Pacer wire or catheter noted in right atrium. Pericardium: There was no pericardial effusion. Systemic veins: Inferior vena cava: Well visualized. The vessel was small, appearing collapsed, consistent with low central venous pressure. The respirophasic diameter changes were in the normal range (greater than or equal to 50%). Baseline ECG: Paced rhythm. Measurements Left ventricle Value 02/20/2017 Reference LV ID, ED, PLAX 4.4 cm 4.2 3.5 - 6.0 LV ID, ES, PLAX 2.7 cm 2.4 2.1 - 4.0 LV PW thickness, ED, PLAX 1.5 cm 1.5 LV end-diastolic volume, 79 ml 112 1-p A2C LV ejection fraction, 1-p 64 % 64 A2C LV end-diastolic volume, 80 ml 83 1-p A4C LV ejection fraction, 1-p 65 % 63 A4C LV e', lateral 0.036 m/sec LV E/e', lateral 29 LV e', medial 0.046 m/sec LV E/e', medial 22 LV e', average 0.041 m/sec LV E/e', average 25 Ventricular septum Value 02/20/2017 Reference IVS thickness, ED, PLAX 1.4 cm 1.5 LVOT Value 02/20/2017 Reference LVOT ID, A-P 1.9 cm 1.9 LVOT area 2.7 cm^2 2.8 LVOT peak velocity, S 1.26 m/sec 1.4 LVOT mean velocity, S 0.94 m/sec LVOT VTI, S 27.6 cm 32.5 LVOT peak gradient, S 6.4 mm Hg 7.8 LVOT mean gradient, S 4.1 mm Hg 4.6 Stroke volume (SV), LVOT 75 ml 92 DP Stroke index (SV/bsa), 35 ml/m^2 44 LVOT DP Aortic valve Value 02/20/2017 Reference Aortic valve peak 2.3 m/sec 4.1 velocity, S Aortic valve mean 1.76 m/sec 0.03 velocity, S Aortic valve VTI, S 49.0 cm Aortic mean gradient, S 13.6 mm Hg 40.6 Aortic peak gradient, S 22 mm Hg 67.2 VTI ratio, LVOT/AV 0.56 0.39 Aortic valve area, VTI 1.5 cm^2 1.1 Velocity ratio, peak, 0.54 0.34 LVOT/AV Aortic valve area, peak 1.5 cm^2 1 velocity Velocity ratio, mean, 0.54 LVOT/AV Aortic valve area, mean 1.5 cm^2 velocity Aortic valve area/bsa, 0.7 cm^2/m^2 mean velocity Aorta Value 02/20/2017 Reference Ascending aorta ID, A-P, S 3.4 cm 3.2 Left atrium Value 02/20/2017 Reference LA ID, A-P, ES 4.5 cm LA ID/bsa, A-P 2.1 cm/m^2 <=2.2 LA area, ES, A4C 21.2 cm^2 17 8.8 - 23.4 LA volume/bsa, ES, 1-p A4C 31 ml/m^2 25 Mitral valve Value 02/20/2017 Reference Mitral E-wave peak 1.03 m/sec 1.09 velocity Mitral A-wave peak 1.46 m/sec 1.38 velocity Mitral deceleration time (H) 361 ms 234 150 - 230 Mitral pressure half-time 105 ms 68 Mitral peak gradient, D 4.3 mm Hg 4.8 Mitral E/A ratio, peak 0.71 0.79 Mitral valve area, PHT, DP 2.1 cm^2 3.2 Tricuspid valve Value 02/20/2017 Reference Tricuspid regurg peak 1.9 m/sec 2 velocity Tricuspid peak RV-RA 15 mm Hg 15.3 gradient Right atrium Value 02/20/2017 Reference RA area, ES, A4C (H) 22.1 cm^2 16.2 8.3 - 19.5 Pulmonic valve Value 02/20/2017 Reference Pulmonic peak gradient, S 4.7 mm Hg 5.2 Legend: (L) and (H) beba values outside specified reference range. I have personally reviewed the images and have reviewed and edited the reported findings. Electronically signed by Ta Reddy 05/02/2018 19:00
[2018-05-02 16:18] LABS: Troponin I < 0.02 ng/mL (0.00-0.06)
[2018-05-02] MEDS: glipiZIDE 5 MG TAB PO (18:06)
[2018-05-02 18:35] LABS: Bilirubin Negative (Negative); Blood Negative (Negative); Clarity Clear; Glucose Negative (Negative); Ketones Trace mg/dL (Negative); Leukocyte Esterase Negative (Negative); Nitrite Negative (Negative); Urobilinogen 0.2 EU/dL (Up TO 0.2); pH 5.5 (5-8)
[2018-05-02] MEDS: Magnesium Oxide 400 MG TAB PO (19:25)
[2018-05-02 19:28] LABS: Troponin I < 0.02 ng/mL (0.00-0.06)
[2018-05-02] MEDS: oxyCODONE 10 MG TAB PO (23:11)
[2018-05-03] VITALS (28 sets, daily range): BP systolic 106–148; BP diastolic 62–80; PULSE 65–80; RESP 16–18; TEMP 36.3–36.8; O2SAT 96–97
[2018-05-03] MEDS: Normal Saline 1,000 ML 100 ML IV (01:36)
[2018-05-03] MEDS: glipiZIDE 5 MG TAB PO ×2 (08:00→17:48)
[2018-05-03] MEDS: Atorvastatin 20 MG TAB 60 MG PO (08:00)
[2018-05-03] MEDS: Aspirin E.C. 81 MG TABEC PO (08:00)
[2018-05-03] MEDS: Magnesium Oxide 400 MG TAB PO ×2 (08:00→19:26)
[2018-05-03] MEDS: Heparin 5,000 UNITS/ML VIAL 5000 UNITS SC ×3 (08:00→23:42)
[2018-05-03 08:16] LABS: Magnesium 2.1 mg/dL (1.8-2.4)
[2018-05-03] MEDS: oxyCODONE 10 MG TAB PO (08:18)
[2018-05-03 08:46] LABS: Anion Gap 9.7 mmol/L (3-11); CO2 21.3 mmol/L (21.0-32.0); CREATININE 2.37 mg/dL (0.70-1.30); Calcium 9.3 mg/dL (8.5-10.1); Chloride 105 mmol/L (98-107); Estimated GFR 27.06 (mL/min/1.73m2); Glucose 78 mg/dL (70-100); Potassium 4.5 mmol/L (3.5-5.1); Sodium 136 mmol/L (136-145)
[2018-05-03 08:47] LABS: Abs Immature Grans 0.01 k/cumm (0.0-0.09); Absolute Basophil Count 0.03 k/cumm (0.0-0.2); Absolute Eosinophil Count 0.14 k/cumm (0.0-0.7); Absolute Lymphocyte Count 2.65 k/cumm (1.2-3.4); Absolute Neutrophil Count 3.72 k/cumm (1.2-6.7); Basophils % 0.4; HCT 37.9 % (40.0-50.0); Immature Grans % 0.1; Lymphocytes % 37.1; Mean Corp. HGB Concentration 34.3 g/dL (32.0-36.0); Mean Corpuscular Hemoglobin 30.1 pg (27.0-33.0); Mean Corpuscular Volume 87.7 fL (80-95); Mean Platelet Volume 9.3 fL (8.0-11.0); Monocytes % 8.4; Platelet Count 179 x1000/uL (130-400); RBC 4.32 m/cumm (4.50-6.00); RBC Distribution Width 15.7 % (11.8-14.1); White Blood Cell Count 7.15 k/cumm (4.4-10.8)
[2018-05-03 08:56] LABS: BUN 59 mg/dL (7-18)
[2018-05-03] MEDS: Insulin Aspart 300 UNITS/3 ML PEN SC (12:04)
--- NOTE | 2018-05-03 14:12 | PDOC.CMIN ---
Care Management Initial Assess REASON FOR HOSPITALIZATION:: Acute renal insufficiency PAST MEDICAL HISTORY/PAST SURGICAL HISTORY:: Chronic kidney disease, Insulin-dependent diabetes mellitus, CHF, Severe LVH, Aortic stenosis, H/O ARDS, Pulmonary hypertension, Hypertension, Dyslipidemia/Hypertriglyceridemia, Chronic pain, Obesity, Sciatica, COPD, Nonobstructing CAD, ANNABELLE on CPAP, H/O delirium, Peripheral neuropathy, (R) foot surgery, (L) heart catheterization PREVIOUS FUNCTIONAL STATUS/SOCIAL/FAMILY SUPPORTS:: Independent at baseline. Lives with his consultant electronics, Mine Jacome, and her adult son, Siddhartha, at his apartment in [place].alone at his apartment in [place]. He had been alone in the apartment until recently and feels that Mine and Siddhartha will be able to support his needs. CURRENT FUNCTIONAL STATUS:: Sitting up on the edge of the bed visiting with Mine and Siddhartha. Alert and cheerful. They brought his lasix and Trelegy inhaler from home. Hopes he will be able to go home soon. ADVANCE DIRECTIVES:: On file - Vilma Strauss and Paula Gilliam are agents, Luis Javier is alternate Has patient been provided with information about the portal?: No Did the patient sign up for the portal?: No CODE STATUS:: DNR/DNI INSURANCE COVERAGE / FINANCIAL ISSUES:: [facility] CURRENT HOME/COMMUNITY SERVICES/EQUIPMENT:: No services at home. Owns a CPAP which he is supposed to use at night. PRIMARY CARE PHYSICIAN:: OCTAVIA: Tien Galicia, POTENTIAL DISCHARGE NEEDS:: F/U appointment with PCP PATIENT/FAMILY EDUCATION NEEDS:: Discharge instructions ANTICIPATED BARRIERS TO DISCHARGE:: None identified TRANSPORTATION:: Recovery Manager PLAN:: Kam will return home when medically cleared for discharge. No services needed. Mine will transport by private car. Readmission - Within the Past 30 Days Yes or No: N
--- NOTE | 2018-05-03 14:12 | PHARADMIT ---
Addendum entered by Ginny Cruz 05/15/18 13:56: Pharmacy Note Subjective Per PT note, patient c/o hand pain Objective Vanco trough 22.8 SCr up 1.85, WBC 11.22, BG 183, Afebrile, CRP down 3.68 Assessment Vanco dose interval changed to 1gram IV q16h Cefazolin 2gram IV continues Plan Discussion of swingbed soon, not done at the time of this note, possible Psych consult Will remain here for remainder of 6 weeks Anbx from start (05/10/18 to 06/21/18) Once looking improved, will discontinue Vanco and finish with Cefazolin since cultures are MSSA Addendum entered by Rancho Tucker III 05/14/18 16:39: Pharmacy Note Subjective MD discussed options of removing AICD vs 6 weeks of IV ABX therapy. Hand has improved. Objective BP-154/68 SCr-1.65 Wgt-88.2 kg Last BM 05/12 Assessment Vancomycin tomorrow at 1300 Plan Patient may go to swing depending on what is decided. Addendum entered by Rancho Tucker III 05/13/18 09:13: Pharmacy Note Subjective After negative CASSI, MD to consult with [facility]-id to discuss length of IV ABX therapy. Vancomycin used to treat hand wound together with Cefazolin Objective BP-147/76 SCr-1.45 Wgt-88.1 kg BM yesterday Assessment Vancomycin trough today @1300 Plan to see paient today regarding hand. Patient may go to swing Bed Addendum entered by Lindsay Aguayo 05/12/18 17:39: Pharmacy Note Subjective CASSI ordered for today- negative per progress note Objective BP-162/82 other VS okay SCr-1.49(up slightly) BG-161 Assessment lantus dose increased from 5 to 10 units QHS cefazolin and vanco continues (day 3 since 1st negative BC)- MD to discuss with ID about duration of abx tx Plan vanco trough ordered for tomorrow @1300, adjust dose as necessary Addendum entered by Rancho Tucker III 05/09/18 16:36: Pharmacy Note Subjective Current is incorrect, watch for new weight. Patient has appliances in heart, (may need CASSI) MD considering 6 weeks of ABX IV. Cefazolin, watch for new Blood cultures Objective VS-OK K+3.2 Mag-2.2 SCr-1.48 H&H-9.9/28.7 Plts-120 WBC-5.33 Assessment Lasix drip continues. Plan Watch weight and I&Os Addendum entered by Rancho Tucker III 05/08/18 15:43: Pharmacy Note Subjective MSSA Bacteremia: Cefazolin 2gm IV q8hrs started, Vanco dc'd. Lasix drip continues: Volume overload . I&o (-4L today) Objective VS-OK Afebrile, SCr-1.41 Lytes-OK H&H,Plts,WBC-OK Wgt-98.2 KG Assessment Spironolactone, Lisinopril..on hold Plan Watch I&Os & Weight Addendum entered by Ginny Cruz 05/07/18 14:47: Pharmacy Note Subjective c/o IV site hurting, signs of Sepsis yesterday Objective Afebrile now, Tmax 39.1 yesterday, BP 125/56 Micro blood: S.Aureus Mag 1.6 (replaced IV plus oral), SCr up 1.76, WBC 8.0, Plt 108 H/H 11.0/32 (?dilutional) Assessment Stool heme positive I/O +7L yesterday, weight up 7.4kg Dopamine infusion off @ 6am Norvasc on hold, Lisinopril dc'd IVF's decreased, watch BP Ertapenam dc'd Plan ?mention of needing central line See if S.Aureus is MSSA or MRSA, continues on Vanco-trough due 05/09 (not ordered) Original Note: Admission Pharmacy Clinical Review acute renal insuffiency Code Status DNR/DNI Current Weight 91.2 kg Renally Cleared and Narrow Therapeutic Index Meds crcl ~25ml/min QTc Value / Action Taken 539 BP Control, Fever 118/66 afebrile Electrolytes reviewed ok DVT Prophylaxis heparin subq Opiate Usage / Scheduled Bowel Regimen Ordered prn/prn Plt/SCr for Heparin / Enoxaparin 179/2.37 INR for Warfarin 1.2 H/H stable, WBC/Bands 13.0/37.9 wbc 7.15 Antibiotic appropriateness na Cultures and Sensitivities na Surgical ABX d/c within 24 hr na DM control / Insulin Dosing fs 78, insulin aspart and detemir Heart Failure (Check EF%) (LAURA's, B-Block, Diuretics) many cardiac meds on hold due to hypotension IV to PO Switch Home Meds Reviewed Home Meds Not Ordered lisinopril 20 mg PO DAILY 90 Days #90 tab-cap 08/16/17 sitagliptin [Januvia] 50 mg PO DAILY 90 Days #90 tab-cap 08/16/17 furosemide [Lasix] 20 mg PO DAILY PRN 30 Days #30 tab-cap 08/30/17 triamcinolone acetonide 1 melinda TOPICAL TID 90 Days #1 tube 09/13/17 fluticasone propionate [Flonase Allergy Relief] 2 spry NS DAILY #1 amlodipine 10 mg PO DAILY #90 tab-cap 10/07/17 [Rx Confirmed 05/02/18] fenofibrate 150 mg capsule 150 mg PO DAILY 11/21/17 melatonin 3 mg tablet 9 mg PO HS tab 01/20/18 [History Confirmed 05/02/18] colchicine 0.6 mg tablet 0.6 mg PO BID PRN #30 tab 01/24/18 metformin 500 mg tablet 1,000 mg PO BID #360 tab-cap 01/24/18 potassium chloride ER 10 mEq tablet,extended release 10 meq PO DAILY spironolactone 25 mg tablet 25 mg PO DAILY 90 Days #90 tab-cap 01/24/18 atenolol 100 mg tablet 100 mg PO DAILY #180 tab-cap 03/21/18 pregabalin 200 mg capsule 400 mg PO BID #360 cap 03/21/18 carvedilol 12.5 mg tablet 12.5 mg PO QDAY tab 04/01/18 Comments
--- NOTE | 2018-05-03 14:24 | W.PM.PROGNOT ---
Date of Service Date of service: 05/03/18 Time of Service: 14:25 Assessment and Plan (1) Acute kidney injury superimposed on chronic kidney disease: Current visit: Yes Status: Acute Symptoms at time of admission likely secondary to dehydration and hypotension in setting of inadvertent overdiuresis. Current creatinine improved but not yet at baseline. Continue gentle IVFs, and continue to hold LAURA-I and Spironolactone. Monitor daily weights, renally dose medications, and avoid nephrotoxins. (2) Hypertension: Current visit: No Status: Chronic Initial presentation with hypotension - currently improved but still not ideal. Continue gentle IVFs. Continue to hold BB, CCB, LAURA-I, and Spironolactone. Lasix also on hold. Of note - patient's med list with both atenolol and carvedilol listed as active medications, verbally confirmed via discussion with nursing. Will check home meds in person, and verify regimen. (3) CAD (coronary artery disease): Current visit: Yes Status: Chronic With reported STEMI and cardiac arrest 12/2017. Current troponins negative, and EKG reportedly unchanged. Continue ASA, statin, and reinitiate Fenofibrate. Will resume BB when blood pressure is more appropriate. (4) CHF (congestive heart failure): Current visit: Yes Status: Chronic ICMP with reported LVEF 40%, now with normalized ejection fraction. Continue aspirin and statin therapy - currently holding LAURA-I, Spironolactone, BB, and low dose diuretic therapy in setting of hypotension and DONTAE. Will resume slowly, and reevaluate medications as we progress forward. (5) Diabetes mellitus, type II: Current visit: No Status: Chronic Continue basal insulin and Glipizide. Also on sliding scale coverage. Continue to hold Metformin. (6) Chronic pain disorder: Current visit: No Status: Chronic Continue home Oxycodone. (7) Chronic obstructive pulmonary disease: Current visit: No Status: Chronic (8) DVT prophylaxis: Current visit: Yes Status: Acute SC Heparin. (9) Advance directive on file: Current visit: Yes Status: Acute DNR/DNI Subjective Interval history since last seen: 73 year old man with a prior history CHF, admitted from [facility] Emergency Department on 05/02 with a diagnosis of hypotension and DONTAE. Mr. Pittman has a past medical history significant for CAD, with a cardiac arrest 12/2017 due to an PA, for which he was treated at [facility] with cardiac catheterization. He also is s/p AICD, with a history of CHF with most recent LVEF of 40% on Echocardiogram at [facility] but with normalized Ejection Fraction by repeat ECHO here. The patient also has a history of , with note of a bioprosthetic valve by his current ECHO, DM with peripheral neuropathy, ANNABELLE, dyslipidemia, HTN, CKD, chronic pain, and COPD. Other history includes ARDS in setting of infection with influenza at which time he required intubation and mechanical ventilation at [facility]. The patient presented to the ED with the sensation that he was going to have recurrent myocardial infarction. He denied chest pain, but reported dizziness and feeling unwell overall. Following transport to the hospital via EMS he was noted to be significantly hypotensive, with a SBP in the 70s and 80s prior to receiving IV Fluids. His troponin was negative and EKG reportedly unchanged. The patient was found to have evidence of DONTAE, found likely in the setting of overdiuresis as patient was apparently inadvertently taking twice his Lasix dose at home. This morning the patient reports improvement overall in symptoms, but with some degree of continued dizziness. His creatinine has improved this morning, as has his blood pressure. No overnight events reported. Remains afebrile. Exam Narrative Exam Narrative: General: Patient appears comfortable, AAOX3, NAD. HEENT: Neck supple. Dry Mucous Membranes. CV: Regular, nontachycardic, S1S2, No rubs, murmurs, or gallops. Pulmonary: Clear to auscultation bilaterally, no crackles, wheezing, or rhonchi Abdomen: + Bowel Sounds, soft, nontender, nondistended Vascular: No lower extremity edema Psych: Normal mood and affect. Objective Objective Clinical Data: Abnormal lab results 05/02/18 05/03/18 05/03/18 Range/Units 18:20 07:58 07:58 RBC 4.32 L (4.50-6.00) m/cumm Hgb 13.0 L (13.5-17.5) g/dL Hct 37.9 L (40.0-50.0) % RDW 15.7 H (11.8-14.1) % BUN 59 H (7-18) mg/dL Creatinine 2.37 H D (0.70-1.30) mg/dL Urine Ketones Trace H (Negative) mg/dL Vital Signs Temperature 36.8 C 05/03/18 07:50 Temperature Source Tympanic 05/03/18 07:50 Pulse 67 05/03/18 07:50 Pulse Rhythm Regular 05/03/18 07:59 Pulse 90 05/02/18 13:21 Respiratory Rate 18 05/03/18 07:50 Respiratory Effort Non-Labored 05/03/18 07:59 Respiratory Depth Normal 05/03/18 07:59 Respiratory Pattern Normal 05/03/18 07:59 Blood Pressure 118/66 05/03/18 07:50 Blood Pressure Mean 57 05/02/18 13:20 Blood Pressure Position Sitting 05/02/18 10:18 Pulse Oximetry 96 05/03/18 07:50 Oxygen Delivery Method Room Air 05/03/18 07:50 Oxygen Flow Rate 0 05/03/18 07:50 Pain Level 5 05/03/18 08:18 Comment Manual cuff BP: 98/60 05/02/18 13:58 Intake & Output 05/02/18 05/03/18 05/03/18 23:59 11:59 23:59 Intake Total 1730 / 1730 2081.667 / 2081.667 Output Total 400 / 400 1800 / 1800 Balance 1330 / 1330 281.667 / 281.667 Weight 93 kg 91.2 kg Intake: IV 100 / 100 1041.667 / 1041.667 Oral 1630 / 1630 1040 / 1040 Output: Urine 400 / 400 1800 / 1800 Other: Urine Color Yellow Straw Dawes Urine Appearance Clear Urine Odor None Comment RN notified. Void x1 in the urinal. Voiding Methods Urinal Urinal Laboratory Results WBC 7.15 k/cumm (4.4-10.8) 05/03/18 07:58 RBC 4.32 m/cumm (4.50-6.00) L 05/03/18 07:58 Hgb 13.0 g/dL (13.5-17.5) L 05/03/18 07:58 Hct 37.9 % (40.0-50.0) L 05/03/18 07:58 MCV 87.7 fL (80-95) 05/03/18 07:58 MCH 30.1 pg (27.0-33.0) 05/03/18 07:58 MCHC 34.3 g/dL (32.0-36.0) 05/03/18 07:58 RDW 15.7 % (11.8-14.1) H 05/03/18 07:58 Plt Count 179 x1000/uL (130-400) 05/03/18 07:58 MPV 9.3 fL (8.0-11.0) 05/03/18 07:58 Immature Gran % 0.1 05/03/18 07:58 Neutrophils % 52.0 05/03/18 07:58 Lymphocytes % 37.1 05/03/18 07:58 Monocytes % 8.4 05/03/18 07:58 Eosinophils % 2.0 05/03/18 07:58 Basophils % 0.4 05/03/18 07:58 Absolute Neutrophils 3.72 k/cumm (1.2-6.7) 05/03/18 07:58 Absolute Lymphocytes 2.65 k/cumm (1.2-3.4) 05/03/18 07:58 Absolute Monocytes 0.60 k/cumm (0.11-0.7) 05/03/18 07:58 Absolute Eosinophils 0.14 k/cumm (0.0-0.7) 05/03/18 07:58 Absolute Basophils 0.03 k/cumm (0.0-0.2) 05/03/18 07:58 PT 11.9 sec (9.3-11.0) H 05/02/18 10:35 INR 1.2 (0.9-1.1) H 05/02/18 10:35 APTT 20.7 sec (21.0-31.4) L 05/02/18 10:35 Sodium 136 mmol/L (136-145) 05/03/18 07:58 Potassium 4.5 mmol/L (3.5-5.1) 05/03/18 07:58 Chloride 105 mmol/L (98-107) 05/03/18 07:58 Carbon Dioxide 21.3 mmol/L (21.0-32.0) 05/03/18 07:58 Anion Gap 9.7 mmol/L (3-11) 05/03/18 07:58 BUN 59 mg/dL (7-18) H 05/03/18 07:58 Creatinine 2.37 mg/dL (0.70-1.30) H D 05/03/18 07:58 Estimated GFR/1.73 m2 27.06 (mL/min/1.73m2) 05/03/18 07:58 Glucose 78 mg/dL (70-100) D 05/03/18 07:58 Calcium 9.3 mg/dL (8.5-10.1) 05/03/18 07:58 Magnesium 2.1 mg/dL (1.8-2.4) 05/03/18 07:58 Total Bilirubin 0.3 mg/dL (0.2-1.0) 05/02/18 10:35 AST 21 U/L (15-37) 05/02/18 10:35 ALT 27 U/L (12-78) 05/02/18 10:35 Alkaline Phosphatase 32 U/L (46-116) L 05/02/18 10:35 Troponin I < 0.02 ng/mL (0.00-0.06) 05/02/18 18:53 NT-Pro-B Natriuret Pep 633 pg/mL (-299) H 05/02/18 10:35 Total Protein 7.1 g/dL (6.4-8.2) 05/02/18 10:35 Albumin 3.9 g/dL (3.4-5.0) 05/02/18 10:35 Urine Color Yellow (Yellow) 05/02/18 18:20 Urine Clarity Clear 05/02/18 18:20 Urine pH 5.5 (5-8) 05/02/18 18:20 Ur Specific Gordon 1.020 (1.005-1.025) 05/02/18 18:20 Urine Protein Negative mg/dL (Negative) 05/02/18 18:20 Urine Ketones Trace mg/dL (Negative) H 05/02/18 18:20 Urine Blood Negative (Negative) 05/02/18 18:20 Urine Nitrite Negative (Negative) 05/02/18 18:20 Urine Bilirubin Negative (Negative) 05/02/18 18:20 Urine Urobilinogen 0.2 EU/dL (Up TO 0.2) 05/02/18 18:20 Ur Leukocyte Esterase Negative (Negative) 05/02/18 18:20 Urine Glucose Negative mg/dL (Negative) 05/02/18 18:20 Objective Narrative Objective Narrative: Exam(s) a US:US echocardiogram *[facility]* *[facility]* [address] [place] [address] Date of study: 05/02/2018 Transthoracic Echocardiography M-mode, complete 2D, complete spectral Doppler, and color Doppler *STUDY CONCLUSIONS* Impressions: Excellent prosthetic valve function without evidence for perivalvular leak. Other valves unchanged. Summary: 1. Left ventricle: The cavity size was normal. Wall thickness was increased in a pattern of moderate LVH. Systolic function was hyperdynamic. The estimated ejection fraction was 65-70%. Wall motion was normal; there were no regional wall motion abnormalities. 2. Aortic valve: A bioprosthesis was present and functioning normally. Peak velocity (S): 2.3m/sec. Mean gradient (S): 13.6mm Hg. Valve area (Vmean): 1.5cm^2. 3. Mitral valve: Severely calcified annulus. 4. Left atrium: The atrium was mildly dilated. 5. Right ventricle: The cavity size was normal. Wall thickness was normal. Cardiac device wire noted in right ventricle. Systolic function was normal. 6. Right atrium: The atrium was dilated.
--- NOTE | 2018-05-03 15:14 | INITIAL_ITS ---
Care Management Initial Assess REASON FOR HOSPITALIZATION:: Acute renal insufficiency PAST MEDICAL HISTORY/PAST SURGICAL HISTORY:: Chronic kidney disease, Insulin- dependent diabetes mellitus, CHF, Severe LVH, Aortic stenosis, H/O ARDS, Pulmonary hypertension, Hypertension, Dyslipidemia/Hypertriglyceridemia, Chronic pain, Obesity, Sciatica, COPD, Nonobstructing CAD, ANNABELLE on CPAP, H/O delirium, Peripheral neuropathy, (R) foot surgery, (L) heart catheterization PREVIOUS FUNCTIONAL STATUS/SOCIAL/FAMILY SUPPORTS:: Independent at baseline. 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 He had been alone in [facility] until recently and feels that Mine and Siddhartha will be able to support his needs. CURRENT FUNCTIONAL STATUS:: Sitting up on the edge of the bed visiting with Dax. Alert and cheerful. They brought his lasix and Trelegy inhaler from home. Hopes he will be able to go home soon. ADVANCE DIRECTIVES:: On file - Vilma Strauss and Paula Gilliam are agents, Luis Javier is alternate Has patient been provided with information about the portal?: No Did the patient sign up for the portal?: No CODE STATUS:: DNR/DNI INSURANCE COVERAGE / FINANCIAL ISSUES:: [facility] CURRENT HOME/COMMUNITY SERVICES/EQUIPMENT:: No services at home. Owns a CPAP which he is supposed to use at night. PRIMARY CARE PHYSICIAN:: OCTAVIA: Tien Galicia, POTENTIAL DISCHARGE NEEDS:: F/U appointment with PCP PATIENT/FAMILY EDUCATION NEEDS:: Discharge instructions ANTICIPATED BARRIERS TO DISCHARGE:: None identified TRANSPORTATION:: Transplant Rn PLAN:: Kam will return home when medically cleared for discharge. No services needed. [employer] will transport by private car. Readmission - Within the Past 30 Days Yes or No: N
[2018-05-03] MEDS: Normal Saline Flush 10 ML SYR IVP (15:44)
[2018-05-04] VITALS: BP 140/80; PULSE 71; RESP 17; TEMP 36.7; O2SAT 96
[2018-05-04] MEDS: Acetaminophen 325 MG TAB PO ×4 (00:16→21:57)
[2018-05-04] MEDS: Fluticasone-Umeclidin-Vilanter [Trelegy Ellipta] IH (07:23)
[2018-05-04 07:25] VITALS: O2SAT 94
--- NOTE | 2018-05-04 07:25 | HOME_ITS ---
Home Ventilator Equipment Home care company Last Reason: Obstructive Sleep Apnea Make: Respironics Model: Dreamstation Mask type: Face mask Mask size: Medium Mode: CPAP Settings: Auto Max 10 Min 6 Oxygen bleed in (lpm): 0 Condition: Good Date last checked: 05/04/18 Year of last sleep study: Compliance Daily Comments:
[2018-05-04 07:28] LABS: Abs Immature Grans 0.01 k/cumm (0.0-0.09); Absolute Basophil Count 0.03 k/cumm (0.0-0.2); Absolute Eosinophil Count 0.15 k/cumm (0.0-0.7); Absolute Lymphocyte Count 2.04 k/cumm (1.2-3.4); Absolute Monocyte Count 0.57 k/cumm (0.11-0.7); Absolute Neutrophil Count 4.43 k/cumm (1.2-6.7); Basophils % 0.4; Eosinophils % 2.1; HGB 13.2 g/dL (13.5-17.5); Immature Grans % 0.1; Lymphocytes % 28.2; Mean Corp. HGB Concentration 33.8 g/dL (32.0-36.0); Mean Corpuscular Hemoglobin 29.6 pg (27.0-33.0); Mean Corpuscular Volume 87.4 fL (80-95); Mean Platelet Volume 9.2 fL (8.0-11.0); Monocytes % 7.9; Neutrophils % 61.3; Platelet Count 176 x1000/uL (130-400); RBC 4.46 m/cumm (4.50-6.00); RBC Distribution Width 15.4 % (11.8-14.1); White Blood Cell Count 7.23 k/cumm (4.4-10.8)
[2018-05-04 07:38] LABS: Anion Gap 10.7 mmol/L (3-11); BUN 37 mg/dL (7-18); CO2 22.3 mmol/L (21.0-32.0); CREATININE 1.47 mg/dL (0.70-1.30); Calcium 9.4 mg/dL (8.5-10.1); Chloride 103 mmol/L (98-107); Estimated GFR 46.96 (mL/min/1.73m2); Glucose 118 mg/dL (70-100); Magnesium 2.1 mg/dL (1.8-2.4); Potassium 4.5 mmol/L (3.5-5.1); Sodium 136 mmol/L (136-145)
[2018-05-04 07:40] VITALS: BP 146/89; PULSE 78; RESP 18; TEMP 36.3; O2SAT 97
[2018-05-04] MEDS: Heparin 5,000 UNITS/ML VIAL 5000 UNITS SC ×3 (08:14→23:47)
[2018-05-04] MEDS: Aspirin E.C. 81 MG TABEC PO (08:14)
[2018-05-04] MEDS: Magnesium Oxide 400 MG TAB PO ×2 (08:14→21:58)
[2018-05-04] MEDS: glipiZIDE 5 MG TAB PO ×2 (08:15→18:02)
[2018-05-04] MEDS: Atorvastatin 20 MG TAB 60 MG PO (08:15)
[2018-05-04] MEDS: Fluticasone NASAL SPRAY 16 GM BTL NS (08:18)
[2018-05-04] MEDS: oxyCODONE 10 MG TAB PO ×3 (08:40→21:58)
[2018-05-04 11:16] VITALS: BP 150/76; PULSE 72; RESP 16; TEMP 36.8; O2SAT 96
[2018-05-04] MEDS: amLODIPine 10 MG TAB PO (11:17)
[2018-05-04] MEDS: Fenofibrate, Micronized 145 MG TAB PO (11:17)
[2018-05-04] MEDS: Insulin Aspart 300 UNITS/3 ML PEN SC (11:56)
--- NOTE | 2018-05-04 13:59 | W.PM.PROGNOT ---
Date of Service Date of service: 05/04/18 Time of Service: 13:59 Assessment and Plan (1) Acute kidney injury superimposed on chronic kidney disease: Current visit: Yes Status: Acute Symptoms at time of admission likely secondary to dehydration and hypotension in setting of diuresis and hypotension. Current creatinine improved and at baseline. Discontinue IVFs today, but continue to hold LAURA-I and Spironolactone. (2) Hypertension: Current visit: No Status: Chronic Initial presentation with hypotension - currently improved but still not ideal. Continue gentle IVFs. Continue to hold BB, CCB, LAURA-I, and Spironolactone. Lasix also on hold. Of note - patient's med list with both atenolol and carvedilol listed as active medications, verbally confirmed via discussion with nursing. Will check home meds in person, and verify regimen. (3) CAD (coronary artery disease): Current visit: Yes Status: Chronic With reported STEMI [facility] cardiac arrest 12/2017. Serial Cardiac Biomarkers negative. Continue ASA, statin, and reinitiate Fenofibrate. Resume BB today. (4) CHF (congestive heart failure): Current visit: Yes Status: Chronic ICMP with reported LVEF 40%, now with normalized ejection fraction. Continue aspirin and statin therapy - currently holding LAURA-I, Spironolactone. Restart BB. Will reevaluate need for diuretic therapy in setting of recovered Ejection Fraction. (5) Diabetes mellitus, type II: Current visit: No Status: Chronic Continue basal insulin and Glipizide. Also on sliding scale coverage. Continue to hold Metformin. (6) Chronic pain disorder: Current visit: No Status: Chronic Continue home Oxycodone. (7) Chronic obstructive pulmonary disease: Current visit: No Status: Chronic (8) DVT prophylaxis: Current visit: Yes Status: Acute SC Heparin. (9) Advance directive on file: Current visit: Yes Status: Acute DNR/DNI Subjective Interval history since last seen: 73 year old man with a prior history CHF, admitted from [facility] Emergency Department on 05/02 with a diagnosis of hypotension and DONTAE. Mr. Pittman has a past medical history significant for CAD, with a cardiac arrest 12/2017 due to an PA, for which he was treated at [facility] [place] with cardiac catheterization. He also is s/p AICD, with a history of CHF with LVEF of reportedly 40% on Echocardiogram at [facility] [place] but with normalized Ejection Fraction by repeat ECHO here without wall motion abnormalities. The patient also has a history of , with note of a bioprosthetic valve by his current ECHO, DM with peripheral neuropathy, ANNABELLE, dyslipidemia, HTN, CKD, chronic pain, and COPD. Other history includes ARDS in setting of infection with influenza at which time he required intubation and mechanical ventilation at [facility] [place]. The patient presented to the ED with the sensation that he was going to have recurrent myocardial infarction. He denied chest pain, but reported dizziness and feeling unwell overall. Following transport to the hospital via EMS he was noted to be significantly hypotensive, with a SBP in the 70s and 80s prior to receiving IV Fluids. His serial troponins mwere negative and EKG reportedly unchanged. The patient was found to have evidence of DONTAE, found likely in the setting of overdiuresis, hypotensive, and dehydrated. This morning the patient reports continued improvement overall in symptoms, with resolution of dizziness. His creatinine has improved this morning, as has his blood pressure - he is now mildly hypertensive. No overnight events reported. Remains afebrile. Exam Narrative Exam Narrative: General: Patient appears comfortable, AAOX3, NAD. HEENT: Neck supple. Dry Mucous Membranes. CV: Regular, nontachycardic, S1S2, No rubs, murmurs, or gallops. Pulmonary: Clear to auscultation bilaterally, no crackles, wheezing, or rhonchi Abdomen: + Bowel Sounds, soft, nontender, nondistended Vascular: No lower extremity edema Psych: Normal mood and affect. Objective Objective Clinical Data: Abnormal lab results 05/04/18 05/04/18 Range/Units 07:10 07:10 RBC 4.46 L (4.50-6.00) m/cumm Hgb 13.2 L (13.5-17.5) g/dL Hct 39.0 L (40.0-50.0) % RDW 15.4 H (11.8-14.1) % BUN 37 H D (7-18) mg/dL Creatinine 1.47 H D (0.70-1.30) mg/dL Glucose 118 H (70-100) mg/dL Vital Signs Temperature 36.8 C 05/04/18 11:16 Temperature Source Skin 05/04/18 11:16 Pulse 72 05/04/18 11:16 Pulse Rhythm Regular 05/03/18 20:34 Pulse 90 05/02/18 13:21 Respiratory Rate 16 05/04/18 11:16 Respiratory Effort Non-Labored 05/03/18 20:34 Respiratory Depth Normal 05/03/18 20:34 Respiratory Pattern Normal 05/03/18 20:34 Blood Pressure 150/76 H 05/04/18 11:16 Blood Pressure Mean 57 05/02/18 13:20 Blood Pressure Position Sitting 05/02/18 10:18 Pulse Oximetry 96 05/04/18 11:16 Oxygen Delivery Method Room Air 05/04/18 11:16 Oxygen Flow Rate 0 05/04/18 11:16 Pain Level 5 05/04/18 11:16 Comment Manual cuff BP: 98/60 05/02/18 13:58 Intake & Output 05/03/18 05/04/18 05/04/18 23:59 11:59 23:59 Intake Total 740 / 3371.667 1080 / 1320 240 / 1320 Output Total 800 / 2600 900 / 900 Balance -60 / 771.667 180 / 420 240 / 420 Weight 89 kg Intake: IV 20 / 1061.667 Oral 720 / 2310 1080 / 1320 240 / 1320 Output: Urine 800 / 2600 900 / 900 Other: Urine Color Yellow Yellow Urine Appearance Clear Clear Urine Odor None None Comment Void x1 in the urinal. Void x1 in the urinal. Voiding Methods Toilet Urinal Laboratory Results WBC 7.23 k/cumm (4.4-10.8) 05/04/18 07:10 RBC 4.46 m/cumm (4.50-6.00) L 05/04/18 07:10 Hgb 13.2 g/dL (13.5-17.5) L 05/04/18 07:10 Hct 39.0 % (40.0-50.0) L 05/04/18 07:10 MCV 87.4 fL (80-95) 05/04/18 07:10 MCH 29.6 pg (27.0-33.0) 05/04/18 07:10 MCHC 33.8 g/dL (32.0-36.0) 05/04/18 07:10 RDW 15.4 % (11.8-14.1) H 05/04/18 07:10 Plt Count 176 x1000/uL (130-400) 05/04/18 07:10 MPV 9.2 fL (8.0-11.0) 05/04/18 07:10 Immature Gran % 0.1 05/04/18 07:10 Neutrophils % 61.3 05/04/18 07:10 Lymphocytes % 28.2 05/04/18 07:10 Monocytes % 7.9 05/04/18 07:10 Eosinophils % 2.1 05/04/18 07:10 Basophils % 0.4 05/04/18 07:10 Absolute Neutrophils 4.43 k/cumm (1.2-6.7) 05/04/18 07:10 Absolute Lymphocytes 2.04 k/cumm (1.2-3.4) 05/04/18 07:10 Absolute Monocytes 0.57 k/cumm (0.11-0.7) 05/04/18 07:10 Absolute Eosinophils 0.15 k/cumm (0.0-0.7) 05/04/18 07:10 Absolute Basophils 0.03 k/cumm (0.0-0.2) 05/04/18 07:10 PT 11.9 sec (9.3-11.0) H 05/02/18 10:35 INR 1.2 (0.9-1.1) H 05/02/18 10:35 APTT 20.7 sec (21.0-31.4) L 05/02/18 10:35 Sodium 136 mmol/L (136-145) 05/04/18 07:10 Potassium 4.5 mmol/L (3.5-5.1) 05/04/18 07:10 Chloride 103 mmol/L (98-107) 05/04/18 07:10 Carbon Dioxide 22.3 mmol/L (21.0-32.0) 05/04/18 07:10 Anion Gap 10.7 mmol/L (3-11) 05/04/18 07:10 BUN 37 mg/dL (7-18) H D 05/04/18 07:10 Creatinine 1.47 mg/dL (0.70-1.30) H D 05/04/18 07:10 Estimated GFR/1.73 m2 46.96 (mL/min/1.73m2) 05/04/18 07:10 Glucose 118 mg/dL (70-100) H 05/04/18 07:10 Calcium 9.4 mg/dL (8.5-10.1) 05/04/18 07:10 Magnesium 2.1 mg/dL (1.8-2.4) 05/04/18 07:10 Total Bilirubin 0.3 mg/dL (0.2-1.0) 05/02/18 10:35 AST 21 U/L (15-37) 05/02/18 10:35 ALT 27 U/L (12-78) 05/02/18 10:35 Alkaline Phosphatase 32 U/L (46-116) L 05/02/18 10:35 Troponin I < 0.02 ng/mL (0.00-0.06) 05/02/18 18:53 NT-Pro-B Natriuret Pep 633 pg/mL (-299) H 05/02/18 10:35 Total Protein 7.1 g/dL (6.4-8.2) 05/02/18 10:35 Albumin 3.9 g/dL (3.4-5.0) 05/02/18 10:35 Urine Color Yellow (Yellow) 05/02/18 18:20 Urine Clarity Clear 05/02/18 18:20 Urine pH 5.5 (5-8) 05/02/18 18:20 Ur Specific [place] 1.020 (1.005-1.025) 05/02/18 18:20 Urine Protein Negative mg/dL (Negative) 05/02/18 18:20 Urine Ketones Trace mg/dL (Negative) H 05/02/18 18:20 Urine Blood Negative (Negative) 05/02/18 18:20 Urine Nitrite Negative (Negative) 05/02/18 18:20 Urine Bilirubin Negative (Negative) 05/02/18 18:20 Urine Urobilinogen 0.2 EU/dL (Up TO 0.2) 05/02/18 18:20 Ur Leukocyte Esterase Negative (Negative) 05/02/18 18:20 Urine Glucose Negative mg/dL (Negative) 05/02/18 18:20
--- NOTE | 2018-05-04 14:07 | PGE_ITS ---
Date of Service Date of service: 05/04/18 Time of Service: 13:59 Assessment and Plan (1) Acute kidney injury superimposed on chronic kidney disease: Current visit: Yes Status: Acute Symptoms at time of admission likely secondary to dehydration and hypotension in setting of diuresis and hypotension. Current creatinine improved and at baseline. Discontinue IVFs today, but continue to hold LAURA-I and Spironolactone. (2) Hypertension: Current visit: No Status: Chronic Initial presentation with hypotension - currently improved but still not ideal. Continue gentle IVFs. Continue to hold BB, CCB, LAURA-I, and Spironolactone. Lasix also on hold. Of note - patient's med list with both atenolol and carvedilol listed as active medications, verbally confirmed via discussion with nursing. Will check home meds in person, and verify regimen. (3) CAD (coronary artery disease): Current visit: Yes Status: Chronic With reported STEMI [facility] cardiac arrest 12/2017. Serial Cardiac Biomarkers negative. Continue ASA, statin, and reinitiate Fenofibrate. Resume BB today. (4) CHF (congestive heart failure): Current visit: Yes Status: Chronic ICMP with reported LVEF 40%, now with normalized ejection fraction. Continue aspirin and statin therapy - currently holding LAURA-I, Spironolactone. Restart BB. Will reevaluate need for diuretic therapy in setting of recovered Ejection Fraction. (5) Diabetes mellitus, type II: Current visit: No Status: Chronic Continue basal insulin and Glipizide. Also on sliding scale coverage. Continue to hold Metformin. (6) Chronic pain disorder: Current visit: No Status: Chronic Continue home Oxycodone. (7) Chronic obstructive pulmonary disease: Current visit: No Status: Chronic (8) DVT prophylaxis: Current visit: Yes Status: Acute SC Heparin. (9) Advance directive on file: Current visit: Yes Status: Acute DNR/DNI Subjective Interval history since last seen: 73 year old man with a prior history CHF, admitted from [facility] Emergency Department on 05/02 with a diagnosis of hypotension and DONTAE. Mr. Pittman has a past medical history significant for CAD, with a cardiac arrest 12/[address], for which he was treated at [facility] [place] with cardiac catheterization. He also is s/p AICD, with a history of CHF with LVEF of reportedly 40% on Echocardiogram at [facility] [place] but with normalized Ejection Fraction by repeat ECHO here without wall motion abnormalities. The patient also has a history of , with note of a bioprosthetic valve by his current ECHO, DM with peripheral neuropathy, ANNABELLE, dyslipidemia, HTN, CKD, chronic pain, and COPD. Other history includes ARDS in setting of infection with influenza at which time he required intubation and mechanical ventilation at [facility] [place]. The patient presented to the ED with the sensation that he was going to have recurrent myocardial infarction. He denied chest pain, but reported dizziness and feeling unwell overall. Following transport to the hospital via EMS he was noted to be significantly hypotensive, with a SBP in the 70s and 80s prior to receiving IV Fluids. His serial troponins mwere negative and EKG reportedly unchanged. The patient was found to have evidence of DONTAE, found likely in the setting of overdiuresis, hypotensive, and dehydrated. This morning the patient reports continued improvement overall in symptoms, with resolution of dizziness. His creatinine has improved this morning, as has his blood pressure - he is now mildly hypertensive. No overnight events reported. Remains afebrile. Exam Narrative Exam Narrative: General: Patient appears comfortable, AAOX3, NAD. HEENT: Neck supple. Dry Mucous Membranes. CV: Regular, nontachycardic, S1S2, No rubs, murmurs, or gallops. Pulmonary: Clear to auscultation bilaterally, no crackles, wheezing, or rhonchi Abdomen: + Bowel Sounds, soft, nontender, nondistended Vascular: No lower extremity edema Psych: Normal mood and affect. Objective Objective Clinical Data: Abnormal lab results 05/04/18 05/04/18 Range/Units 07:10 07:10 RBC 4.46 L (4.50-6.00) m/cumm Hgb 13.2 L (13.5-17.5) g/dL Hct 39.0 L (40.0-50.0) % RDW 15.4 H (11.8-14.1) % BUN 37 H D (7-18) mg/dL Creatinine 1.47 H D (0.70-1.30) mg/dL Glucose 118 H (70-100) mg/dL Vital Signs Temperature 36.8 C 05/04/18 11:16 Temperature Source Skin 05/04/18 11:16 Pulse 72 05/04/18 11:16 Pulse Rhythm Regular 05/03/18 20:34 Pulse 90 05/02/18 13:21 Respiratory Rate 16 05/04/18 11:16 Respiratory Effort Non-Labored 05/03/18 20:34 Respiratory Depth Normal 05/03/18 20:34 Respiratory Pattern Normal 05/03/18 20:34 Blood Pressure 150/76 H 05/04/18 11:16 Blood Pressure Mean 57 05/02/18 13:20 Blood Pressure Position Sitting 05/02/18 10:18 Pulse Oximetry 96 05/04/18 11:16 Oxygen Delivery Method Room Air 05/04/18 11:16 Oxygen Flow Rate 0 05/04/18 11:16 Pain Level 5 05/04/18 11:16 Comment Manual cuff BP: 98/60 05/02/18 13:58 Intake & Output 05/03/18 05/04/18 05/04/18 23:59 11:59 23:59 Intake Total 740 / 3371.667 1080 / 1320 240 / 1320 Output Total 800 / 2600 900 / 900 Balance -60 / 771.667 180 / 420 240 / 420 Weight 89 kg Intake: IV 20 / 1061.667 Oral 720 / 2310 1080 / 1320 240 / 1320 Output: Urine 800 / 2600 900 / 900 Other: Urine Color Yellow Yellow Urine Appearance Clear Clear Urine Odor None None Comment Void x1 in the urinal. Void x1 in the urinal. Voiding Methods Toilet Urinal Laboratory Results WBC 7.23 k/cumm (4.4-10.8) 05/04/18 07:10 RBC 4.46 m/cumm (4.50-6.00) L 05/04/18 07:10 Hgb 13.2 g/dL (13.5-17.5) L 05/04/18 07:10 Hct 39.0 % (40.0-50.0) L 05/04/18 07:10 MCV 87.4 fL (80-95) 05/04/18 07:10 MCH 29.6 pg (27.0-33.0) 05/04/18 07:10 MCHC 33.8 g/dL (32.0-36.0) 05/04/18 07:10 RDW 15.4 % (11.8-14.1) H 05/04/18 07:10 Plt Count 176 x1000/uL (130-400) 05/04/18 07:10 MPV 9.2 fL (8.0-11.0) 05/04/18 07:10 Immature Gran % 0.1 05/04/18 07:10 Neutrophils % 61.3 05/04/18 07:10 Lymphocytes % 28.2 05/04/18 07:10 Monocytes % 7.9 05/04/18 07:10 Eosinophils % 2.1 05/04/18 07:10 Basophils % 0.4 05/04/18 07:10 Absolute Neutrophils 4.43 k/cumm (1.2-6.7) 05/04/18 07:10 Absolute Lymphocytes 2.04 k/cumm (1.2-3.4) 05/04/18 07:10 Absolute Monocytes 0.57 k/cumm (0.11-0.7) 05/04/18 07:10 Absolute Eosinophils 0.15 k/cumm (0.0-0.7) 05/04/18 07:10 Absolute Basophils 0.03 k/cumm (0.0-0.2) 05/04/18 07:10 PT 11.9 sec (9.3-11.0) H 05/02/18 10:35 INR 1.2 (0.9-1.1) H 05/02/18 10:35 APTT 20.7 sec (21.0-31.4) L 05/02/18 10:35 Sodium 136 mmol/L (136-145) 05/04/18 07:10 Potassium 4.5 mmol/L (3.5-5.1) 05/04/18 07:10 Chloride 103 mmol/L (98-107) 05/04/18 07:10 Carbon Dioxide 22.3 mmol/L (21.0-32.0) 05/04/18 07:10 Anion Gap 10.7 mmol/L (3-11) 05/04/18 07:10 BUN 37 mg/dL (7-18) H D 05/04/18 07:10 Creatinine 1.47 mg/dL (0.70-1.30) H D 05/04/18 07:10 Estimated GFR/1.73 m2 46.96 (mL/min/1.73m2) 05/04/18 07:10 Glucose 118 mg/dL (70-100) H 05/04/18 07:10 Calcium 9.4 mg/dL (8.5-10.1) 05/04/18 07:10 Magnesium 2.1 mg/dL (1.8-2.4) 05/04/18 07:10 Total Bilirubin 0.3 mg/dL (0.2-1.0) 05/02/18 10:35 AST 21 U/L (15-37) 05/02/18 10:35 ALT 27 U/L (12-78) 05/02/18 10:35 Alkaline Phosphatase 32 U/L (46-116) L 05/02/18 10:35 Troponin I < 0.02 ng/mL (0.00-0.06) 05/02/18 18:53 NT-Pro-B Natriuret Pep 633 pg/mL (-299) H 05/02/18 10:35 Total Protein 7.1 g/dL (6.4-8.2) 05/02/18 10:35 Albumin 3.9 g/dL (3.4-5.0) 05/02/18 10:35 Urine Color Yellow (Yellow) 05/02/18 18:20 Urine Clarity Clear 05/02/18 18:20 Urine pH 5.5 (5-8) 05/02/18 18:20 Ur Specific [place] 1.020 (1.005-1.025) 05/02/18 18:20 Urine Protein Negative mg/dL (Negative) 05/02/18 18:20 Urine Ketones Trace mg/dL (Negative) H 05/02/18 18:20 Urine Blood Negative (Negative) 05/02/18 18:20 Urine Nitrite Negative (Negative) 05/02/18 18:20 Urine Bilirubin Negative (Negative) 05/02/18 18:20 Urine Urobilinogen 0.2 EU/dL (Up TO 0.2) 05/02/18 18:20 Ur Leukocyte Esterase Negative (Negative) 05/02/18 18:20 Urine Glucose Negative mg/dL (Negative) 05/02/18 18:20
[2018-05-04 16:13] VITALS: BP 163/76; PULSE 74; RESP 18; TEMP 36.6; O2SAT 96
--- NOTE | 2018-05-04 17:38 | PDOC.CMPRO ---
Care Management Progress Note S/O: Kam was sitting up in bed and had just finished eating his supper. Stated he is feeling better although still a little light headed. Medications were changed today and he said that he was taking 30 pills each morning and about half that again in the evening. Hospitalist is going to recommend coordination of medication management between the specialists and his PCP. Kam hopes to go home tomorrow and Mine will be there at home to provide support. A: 73 y.o. male admitted for acute renal insufficiency. P: Kam will return home and no services will be needed when medically cleared for discharge. Mine will transport.
[2018-05-04] MEDS: Ondansetron 4 MG/2 ML VIAL IVP (21:57)
[2018-05-04] MEDS: Carvedilol 6.25 MG TAB 12.5 MG PO (21:58)
[2018-05-05] VITALS: BP 143/80; PULSE 66; RESP 17; TEMP 37.7; O2SAT 96
[2018-05-05 07:51] VITALS: BP 127/69; BP 145/80; BP 148/71; PULSE 66; PULSE 72; RESP 16; TEMP 36.3; O2SAT 94
[2018-05-05 08:08] LABS: Abs Immature Grans 0.01 k/cumm (0.0-0.09); Absolute Basophil Count 0.03 k/cumm (0.0-0.2); Absolute Eosinophil Count 0.12 k/cumm (0.0-0.7); Absolute Lymphocyte Count 2.43 k/cumm (1.2-3.4); Absolute Neutrophil Count 3.34 k/cumm (1.2-6.7); Basophils % 0.5; Eosinophils % 1.9; HCT 38.3 % (40.0-50.0); HGB 12.9 g/dL (13.5-17.5); Immature Grans % 0.2; Lymphocytes % 37.8; Mean Corp. HGB Concentration 33.7 g/dL (32.0-36.0); Mean Corpuscular Hemoglobin 29.7 pg (27.0-33.0); Mean Platelet Volume 9.1 fL (8.0-11.0); Monocytes % 7.8; Neutrophils % 51.8; Platelet Count 191 x1000/uL (130-400); RBC 4.35 m/cumm (4.50-6.00); RBC Distribution Width 15.1 % (11.8-14.1); White Blood Cell Count 6.43 k/cumm (4.4-10.8)
[2018-05-05 08:16] LABS: Anion Gap 9.1 mmol/L (3-11); BUN 32 mg/dL (7-18); CO2 22.9 mmol/L (21.0-32.0); Chloride 102 mmol/L (98-107); Estimated GFR 45.87 (mL/min/1.73m2); Glucose 145 mg/dL (70-100); Magnesium 2.4 mg/dL (1.8-2.4); Potassium 4.6 mmol/L (3.5-5.1); Sodium 134 mmol/L (136-145)
[2018-05-05 08:26] LABS: Calcium 8.9 mg/dL (8.5-10.1)
[2018-05-05] MEDS: Atorvastatin 20 MG TAB 60 MG PO (09:38)
[2018-05-05] MEDS: amLODIPine 10 MG TAB PO (09:38)
[2018-05-05] MEDS: Aspirin E.C. 81 MG TABEC PO (09:38)
[2018-05-05] MEDS: Magnesium Oxide 400 MG TAB PO ×2 (09:38→19:31)
[2018-05-05] MEDS: Lisinopril 20 MG TAB PO (09:38)
[2018-05-05] MEDS: Fenofibrate, Micronized 145 MG TAB PO (09:38)
[2018-05-05] MEDS: Carvedilol 6.25 MG TAB 12.5 MG PO ×2 (09:38→19:30)
[2018-05-05] MEDS: glipiZIDE 5 MG TAB PO ×2 (09:38→18:01)
[2018-05-05] MEDS: Heparin 5,000 UNITS/ML VIAL 5000 UNITS SC ×3 (09:43→23:59)
[2018-05-05] MEDS: Fluticasone NASAL SPRAY 16 GM BTL NS (09:44)
[2018-05-05] MEDS: Fluticasone-Umeclidin-Vilanter [Trelegy Ellipta] IH (09:45)
[2018-05-05] MEDS: Insulin Aspart 300 UNITS/3 ML PEN SC (12:06)
--- NOTE | 2018-05-05 14:52 | W.PM.PROGNOT ---
Date of Service Date of service: 05/05/18 Time of Service: 14:52 Assessment and Plan (1) Acute kidney injury superimposed on chronic kidney disease: Current visit: Yes Status: Acute Symptoms at time of admission likely secondary to dehydration and hypotension. Current creatinine improved and at baseline. Resolved and creatinine stable. Continue to hold LAURA-I and Spironolactone. (2) Hypertension: Current visit: No Status: Chronic Initial presentation with hypotension - currently improved but still not ideal. Patient on a number of antihypertensives and diuretics as part of his cardiac regimen - now with recovered LV Function. Resumed CCB and BB previously, and will restart LAURA-I today. Spironolactone still on hold. Will likely not require Lasix. Of note - patient's med list with both atenolol and carvedilol listed as active medications, verbally confirmed via discussion with nursing. Will ensure Atenolol is discontinued at time of discharge. (3) CAD (coronary artery disease): Current visit: Yes Status: Chronic With reported STEMI wt cardiac arrest 12/2017. Serial Cardiac Biomarkers negative. Continue ASA, statin, BB. Also on Fenofibrate. (4) CHF (congestive heart failure): Current visit: Yes Status: Chronic ICMP with reported LVEF 40%, now with normalized ejection fraction. Continue aspirin and statin therapy. Also on LAURA-I and BB, with Spironolactone still on hold as above. Will reevaluate need for diuretic therapy in setting of recovered Ejection Fraction. (5) Diabetes mellitus, type II: Current visit: No Status: Chronic Continue basal insulin and Glipizide. Also on sliding scale coverage. Continue to hold Metformin. (6) Chronic pain disorder: Current visit: No Status: Chronic Continue home Oxycodone. (7) Chronic obstructive pulmonary disease: Current visit: No Status: Chronic (8) Nausea & vomiting: Current visit: Yes Status: Acute One time episode of nausea with vomiting. Patient appears stable, with resolved symptoms. Physical Exam unrevealing. However, with one time elevated temp last night without fever (37.7 C). Will check urinalysis to ensure lack of infection. (9) DVT prophylaxis: Current visit: Yes Status: Acute SC Heparin. (10) Advance directive on file: Current visit: Yes Status: Acute DNR/DNI Subjective Interval history since last seen: 73 year old man with a prior history CHF, admitted from [facility] Emergency Department on 05/02 with a diagnosis of hypotension and DONTAE. Mr. Pittman has a past medical history significant for CAD, with a cardiac arrest 12/2017 due to an AR, for which he was [place] [facility] [place] cardiac [place]. He also is s/p AICD, with a history of CHF with LVEF of reportedly 40% on Echocardiogram at [facility] but with normalized Ejection Fraction by repeat ECHO here without wall motion abnormalities. The patient also has a history of , with note of a bioprosthetic valve by his current ECHO, DM with peripheral neuropathy, ANNABELLE, dyslipidemia, HTN, CKD, chronic pain, and COPD. Other history includes ARDS in setting of infection with influenza at which time he required intubation and mechanical ventilation at [facility] The patient presented to the ED with the sensation that he was going to have recurrent myocardial infarction. He denied chest pain, but reported dizziness and feeling unwell overall. Following transport to the hospital via EMS he was noted to be significantly hypotensive, with a SBP in the 70s and 80s prior to receiving IV Fluids. His serial troponins mwere negative and EKG reportedly unchanged. The patient was found to have evidence of DONTAE, found likely in the setting of overdiuresis, hypotensive, and dehydrated. The patient's original symptoms have essentially abated, and his creatinine remains at baseline. His blood pressure is now hypertensive. Mr. Pittman had a bout of nausea overnight with vomiting following dinner, but has tolerated both breakfast and lunch well. He continues to report mild dizziness, but has been ambulating well and without difficulty. Remains afebrile. Exam Narrative Exam Narrative: General: Patient appears comfortable, AAOX3, NAD. HEENT: Neck supple. Dry Mucous Membranes. CV: Regular, nontachycardic, S1S2, No rubs, murmurs, or gallops. Pulmonary: Clear to auscultation bilaterally, no crackles, wheezing, or rhonchi Abdomen: + Bowel Sounds, soft, nontender, nondistended Vascular: No lower extremity edema Psych: Normal mood and affect. Objective Objective Clinical Data: Abnormal lab results 05/05/18 05/05/18 Range/Units 07:43 07:43 RBC 4.35 L (4.50-6.00) m/cumm Hgb 12.9 L (13.5-17.5) g/dL Hct 38.3 L (40.0-50.0) % RDW 15.1 H (11.8-14.1) % Sodium 134 L (136-145) mmol/L BUN 32 H (7-18) mg/dL Creatinine 1.50 H (0.70-1.30) mg/dL Glucose 145 H (70-100) mg/dL Vital Signs Temperature 36.3 C L 05/05/18 07:51 Temperature Source Tympanic 05/05/18 07:51 Pulse 72 05/05/18 07:51 Pulse Rhythm Regular 05/05/18 07:30 Pulse 90 05/02/18 13:21 Respiratory Rate 16 05/05/18 07:51 Respiratory Effort Non-Labored 05/05/18 07:30 Respiratory Depth Normal 05/05/18 07:30 Respiratory Pattern Normal 05/05/18 07:30 Blood Pressure 145/80 H 05/05/18 07:51 Blood Pressure Mean 57 05/02/18 13:20 Blood Pressure Position Sitting 05/02/18 10:18 Pulse Oximetry 94 L 05/05/18 07:51 Oxygen Delivery Method Room Air 05/05/18 00:00 Oxygen Flow Rate 0 05/05/18 00:00 Pain Level 5 05/04/18 16:37 Comment 05/05/18 07:51 Intake & Output 05/04/18 05/05/18 05/05/18 23:59 11:59 23:59 Intake Total 960 / 0 610 / 860 250 / 860 Output Total 1152049 850 / 850 Balance -190 / -10 -240 / 10 250 / 10 Weight 88.2 kg Intake: Oral 960 / 0 610 / 860 250 / 860 Output: Urine 1100 / 2000 850 / 850 Emesis 50 / 50 Other: Urine Color Yellow Light Jazzmine Urine Appearance Clear Clear Urine Odor None Normal Comment Void x1 in the urinal. Stool Size Moderate Moderate Stool Characteristics Soft Soft Formed Formed Brown Brown Emesis Description Retching Undigested Food Voiding Methods Urinal Toilet Laboratory Results WBC 6.43 k/cumm (4.4-10.8) 05/05/18 07:43 RBC 4.35 m/cumm (4.50-6.00) L 05/05/18 07:43 Hgb 12.9 g/dL (13.5-17.5) L 05/05/18 07:43 Hct 38.3 % (40.0-50.0) L 05/05/18 07:43 MCV 88.0 fL (80-95) 05/05/18 07:43 MCH 29.7 pg (27.0-33.0) 05/05/18 07:43 MCHC 33.7 g/dL (32.0-36.0) 05/05/18 07:43 RDW 15.1 % (11.8-14.1) H 05/05/18 07:43 Plt Count 191 x1000/uL (130-400) 05/05/18 07:43 MPV 9.1 fL (8.0-11.0) 05/05/18 07:43 Immature Gran % 0.2 05/05/18 07:43 Neutrophils % 51.8 05/05/18 07:43 Lymphocytes % 37.8 05/05/18 07:43 Monocytes % 7.8 05/05/18 07:43 Eosinophils % 1.9 05/05/18 07:43 Basophils % 0.5 05/05/18 07:43 Absolute Neutrophils 3.34 k/cumm (1.2-6.7) 05/05/18 07:43 Absolute Lymphocytes 2.43 k/cumm (1.2-3.4) 05/05/18 07:43 Absolute Monocytes 0.50 k/cumm (0.11-0.7) 05/05/18 07:43 Absolute Eosinophils 0.12 k/cumm (0.0-0.7) 05/05/18 07:43 Absolute Basophils 0.03 k/cumm (0.0-0.2) 05/05/18 07:43 PT 11.9 sec (9.3-11.0) H 05/02/18 10:35 INR 1.2 (0.9-1.1) H 05/02/18 10:35 APTT 20.7 sec (21.0-31.4) L 05/02/18 10:35 Sodium 134 mmol/L (136-145) L 05/05/18 07:43 Potassium 4.6 mmol/L (3.5-5.1) 05/05/18 07:43 Chloride 102 mmol/L (98-107) 05/05/18 07:43 Carbon Dioxide 22.9 mmol/L (21.0-32.0) 05/05/18 07:43 Anion Gap 9.1 mmol/L (3-11) 05/05/18 07:43 BUN 32 mg/dL (7-18) H 05/05/18 07:43 Creatinine 1.50 mg/dL (0.70-1.30) H 05/05/18 07:43 Estimated GFR/1.73 m2 45.87 (mL/min/1.73m2) 05/05/18 07:43 Glucose 145 mg/dL (70-100) H 05/05/18 07:43 Calcium 8.9 mg/dL (8.5-10.1) 05/05/18 07:43 Magnesium 2.4 mg/dL (1.8-2.4) 05/05/18 07:43 Total Bilirubin 0.3 mg/dL (0.2-1.0) 05/02/18 10:35 AST 21 U/L (15-37) 05/02/18 10:35 ALT 27 U/L (12-78) 05/02/18 10:35 Alkaline Phosphatase 32 U/L (46-116) L 05/02/18 10:35 Troponin I < 0.02 ng/mL (0.00-0.06) 05/02/18 18:53 NT-Pro-B Natriuret Pep 633 pg/mL (-299) H 05/02/18 10:35 Total Protein 7.1 g/dL (6.4-8.2) 05/02/18 10:35 Albumin 3.9 g/dL (3.4-5.0) 05/02/18 10:35 Urine Color Yellow (Yellow) 05/02/18 18:20 Urine Clarity Clear 05/02/18 18:20 Urine pH 5.5 (5-8) 05/02/18 18:20 Ur Specific [place] 1.020 (1.005-1.025) 05/02/18 18:20 Urine Protein Negative mg/dL (Negative) 05/02/18 18:20 Urine Ketones Trace mg/dL (Negative) H 05/02/18 18:20 Urine Blood Negative (Negative) 05/02/18 18:20 Urine Nitrite Negative (Negative) 05/02/18 18:20 Urine Bilirubin Negative (Negative) 05/02/18 18:20 Urine Urobilinogen 0.2 EU/dL (Up TO 0.2) 05/02/18 18:20 Ur Leukocyte Esterase Negative (Negative) 05/02/18 18:20 Urine Glucose Negative mg/dL (Negative) 05/02/18 18:20
--- NOTE | 2018-05-05 14:56 | PGE_ITS ---
Date of Service Date of service: 05/05/18 Time of Service: 14:52 Assessment and Plan (1) Acute kidney injury superimposed on chronic kidney disease: Current visit: Yes Status: Acute Symptoms at time of admission likely secondary to dehydration and hypotension. Current creatinine improved and at baseline. Resolved and creatinine stable. Continue to hold LAURA-I and Spironolactone. (2) Hypertension: Current visit: No Status: Chronic Initial presentation with hypotension - currently improved but still not ideal. Patient on a number of antihypertensives and diuretics as part of his cardiac regimen - now with recovered LV Function. Resumed CCB and BB previously, and will restart LAURA-I today. Spironolactone still on hold. Will likely not require Lasix. Of note - patient's med list with both atenolol and carvedilol listed as active medications, verbally confirmed via discussion with nursing. Will ensure Atenolol is discontinued at time of discharge. (3) CAD (coronary artery disease): Current visit: Yes Status: Chronic With reported STEMI wt cardiac arrest 12/2017. Serial Cardiac Biomarkers negative. Continue ASA, statin, BB. Also on Fenofibrate. (4) CHF (congestive heart failure): Current visit: Yes Status: Chronic ICMP with reported LVEF 40%, now with normalized ejection fraction. Continue aspirin and statin therapy. Also on LAURA-I and BB, with Spironolactone still on hold as above. Will reevaluate need for diuretic therapy in setting of recovered Ejection Fraction. (5) Diabetes mellitus, type II: Current visit: No Status: Chronic Continue basal insulin and Glipizide. Also on sliding scale coverage. Continue to hold Metformin. (6) Chronic pain disorder: Current visit: No Status: Chronic Continue home Oxycodone. (7) Chronic obstructive pulmonary disease: Current visit: No Status: Chronic (8) Nausea & vomiting: Current visit: Yes Status: Acute One time episode of nausea with vomiting. Patient appears stable, with resolved symptoms. Physical Exam unrevealing. However, with one time elevated temp last night without fever (37.7 C). Will check urinalysis to ensure lack of infection. (9) DVT prophylaxis: Current visit: Yes Status: Acute SC Heparin. (10) Advance directive on file: Current visit: Yes Status: Acute DNR/DNI Subjective Interval history since last seen: 73 year old man with a prior history CHF, admitted from [facility] Emergency Department on 05/02 with a diagnosis of hypotension and DONTAE. Mr. Pittman has a past medical history significant for CAD, with a cardiac arrest 12/2017 due to an FL, for which he was treated at [facility] with cardiac catheterization. He also is s/p AICD, with a history of CHF with LVEF of reportedly 40% on Echocardiogram at [facility] but with normalized Ejection Fraction by repeat ECHO here without wall motion abnormalities. The patient also has a history of , with note of a bioprosthetic valve by his current ECHO, DM with peripheral neuropathy, ANNABELLE, dyslipidemia, HTN, CKD, chronic pain, and COPD. Other history includes ARDS in setting of infection with influenza at which time he required intubation and mechanical ventilation at [facility]. The patient presented to the ED with the sensation that he was going to have recurrent myocardial infarction. He denied chest pain, but reported dizziness and feeling unwell overall. Following transport to the hospital via EMS he was noted to be significantly hypotensive, with a SBP in the 70s and 80s prior to receiving IV Fluids. His serial troponins mwere negative and EKG reportedly unchanged. The patient was found to have evidence of DONTAE, found likely in the setting of overdiuresis, hypotensive, and dehydrated. The patient's original symptoms have essentially abated, and his creatinine remains at baseline. His blood pressure is now hypertensive. Mr. Pittman had a bout of nausea overnight with vomiting following dinner, but has tolerated both breakfast and lunch well. He continues to report mild dizziness, but has been ambulating well and without difficulty. Remains afebrile. Exam Narrative Exam Narrative: General: Patient appears comfortable, AAOX3, NAD. HEENT: Neck supple. Dry Mucous Membranes. CV: Regular, nontachycardic, S1S2, No rubs, murmurs, or gallops. Pulmonary: Clear to auscultation bilaterally, no crackles, wheezing, or rhonchi Abdomen: + Bowel Sounds, soft, nontender, nondistended Vascular: No lower extremity edema Psych: Normal mood and affect. Objective Objective Clinical Data: Abnormal lab results 05/05/18 05/05/18 Range/Units 07:43 07:43 RBC 4.35 L (4.50-6.00) m/cumm Hgb 12.9 L (13.5-17.5) g/dL Hct 38.3 L (40.0-50.0) % RDW 15.1 H (11.8-14.1) % Sodium 134 L (136-145) mmol/L BUN 32 H (7-18) mg/dL Creatinine 1.50 H (0.70-1.30) mg/dL Glucose 145 H (70-100) mg/dL Vital Signs Temperature 36.3 C L 05/05/18 07:51 Temperature Source Tympanic 05/05/18 07:51 Pulse 72 05/05/18 07:51 Pulse Rhythm Regular 05/05/18 07:30 Pulse 90 05/02/18 13:21 Respiratory Rate 16 05/05/18 07:51 Respiratory Effort Non-Labored 05/05/18 07:30 Respiratory Depth Normal 05/05/18 07:30 Respiratory Pattern Normal 05/05/18 07:30 Blood Pressure 145/80 H 05/05/18 07:51 Blood Pressure Mean 57 05/02/18 13:20 Blood Pressure Position Sitting 05/02/18 10:18 Pulse Oximetry 94 L 05/05/18 07:51 Oxygen Delivery Method Room Air 05/05/18 00:00 Oxygen Flow Rate 0 05/05/18 00:00 Pain Level 5 05/04/18 16:37 Comment 05/05/18 07:51 Intake & Output 05/04/18 05/05/18 05/05/18 23:59 11:59 23:59 Intake Total 960 / 0 610 / 860 250 / 860 Output Total 1152049 850 / 850 Balance -190 / -10 -240 / 10 250 / 10 Weight 88.2 kg Intake: Oral 960 / 0 610 / 860 250 / 860 Output: Urine 1100 / 2000 850 / 850 Emesis 50 / 50 Other: Urine Color Yellow Light Jazzmine Urine Appearance Clear Clear Urine Odor None Normal Comment Void x1 in the urinal. Stool Size Moderate Moderate Stool Characteristics Soft Soft Formed Formed Brown Brown Emesis Description Retching Undigested Food Voiding Methods Urinal Toilet Laboratory Results WBC 6.43 k/cumm (4.4-10.8) 05/05/18 07:43 RBC 4.35 m/cumm (4.50-6.00) L 05/05/18 07:43 Hgb 12.9 g/dL (13.5-17.5) L 05/05/18 07:43 Hct 38.3 % (40.0-50.0) L 05/05/18 07:43 MCV 88.0 fL (80-95) 05/05/18 07:43 MCH 29.7 pg (27.0-33.0) 05/05/18 07:43 MCHC 33.7 g/dL (32.0-36.0) 05/05/18 07:43 RDW 15.1 % (11.8-14.1) H 05/05/18 07:43 Plt Count 191 x1000/uL (130-400) 05/05/18 07:43 MPV 9.1 fL (8.0-11.0) 05/05/18 07:43 Immature Gran % 0.2 05/05/18 07:43 Neutrophils % 51.8 05/05/18 07:43 Lymphocytes % 37.8 05/05/18 07:43 Monocytes % 7.8 05/05/18 07:43 Eosinophils % 1.9 05/05/18 07:43 Basophils % 0.5 05/05/18 07:43 Absolute Neutrophils 3.34 k/cumm (1.2-6.7) 05/05/18 07:43 Absolute Lymphocytes 2.43 k/cumm (1.2-3.4) 05/05/18 07:43 Absolute Monocytes 0.50 k/cumm (0.11-0.7) 05/05/18 07:43 Absolute Eosinophils 0.12 k/cumm (0.0-0.7) 05/05/18 07:43 Absolute Basophils 0.03 k/cumm (0.0-0.2) 05/05/18 07:43 PT 11.9 sec (9.3-11.0) H 05/02/18 10:35 INR 1.2 (0.9-1.1) H 05/02/18 10:35 APTT 20.7 sec (21.0-31.4) L 05/02/18 10:35 Sodium 134 mmol/L (136-145) L 05/05/18 07:43 Potassium 4.6 mmol/L (3.5-5.1) 05/05/18 07:43 Chloride 102 mmol/L (98-107) 05/05/18 07:43 Carbon Dioxide 22.9 mmol/L (21.0-32.0) 05/05/18 07:43 Anion Gap 9.1 mmol/L (3-11) 05/05/18 07:43 BUN 32 mg/dL (7-18) H 05/05/18 07:43 Creatinine 1.50 mg/dL (0.70-1.30) H 05/05/18 07:43 Estimated GFR/1.73 m2 45.87 (mL/min/1.73m2) 05/05/18 07:43 Glucose 145 mg/dL (70-100) H 05/05/18 07:43 Calcium 8.9 mg/dL (8.5-10.1) 05/05/18 07:43 Magnesium 2.4 mg/dL (1.8-2.4) 05/05/18 07:43 Total Bilirubin 0.3 mg/dL (0.2-1.0) 05/02/18 10:35 AST 21 U/L (15-37) 05/02/18 10:35 ALT 27 U/L (12-78) 05/02/18 10:35 Alkaline Phosphatase 32 U/L (46-116) L 05/02/18 10:35 Troponin I < 0.02 ng/mL (0.00-0.06) 05/02/18 18:53 NT-Pro-B Natriuret Pep 633 pg/mL (-299) H 05/02/18 10:35 Total Protein 7.1 g/dL (6.4-8.2) 05/02/18 10:35 Albumin 3.9 g/dL (3.4-5.0) 05/02/18 10:35 Urine Color Yellow (Yellow) 05/02/18 18:20 Urine Clarity Clear 05/02/18 18:20 Urine pH 5.5 (5-8) 05/02/18 18:20 Ur Specific [place] 1.020 (1.005-1.025) 05/02/18 18:20 Urine Protein Negative mg/dL (Negative) 05/02/18 18:20 Urine Ketones Trace mg/dL (Negative) H 05/02/18 18:20 Urine Blood Negative (Negative) 05/02/18 18:20 Urine Nitrite Negative (Negative) 05/02/18 18:20 Urine Bilirubin Negative (Negative) 05/02/18 18:20 Urine Urobilinogen 0.2 EU/dL (Up TO 0.2) 05/02/18 18:20 Ur Leukocyte Esterase Negative (Negative) 05/02/18 18:20 Urine Glucose Negative mg/dL (Negative) 05/02/18 18:20
--- NOTE | 2018-05-05 14:59 | PDOC.CMPRO ---
- If Service Date Differs Date of service: 05/05/18 Time of Service: 14:59 Care Management Progress Note S/O: Kam is sitting up in bed eating lunch when this proposal lead writer visits this morning. He requests information in regards to [facility], though when PONCHO presents him with the brochure, Kam states that this would still be too expensive for him. Kam reports speaking with [employer] and attempting to find financial help in regards to [facility], though having no luck. Kam also states that he is hopeful to return home tomorrow possibly, and that his SO Mine will transport him home. A: 73 y.o. male admitted for acute renal insufficiency. P: Kam will return home and no services will be needed when medically cleared for discharge. [facility] will transport.
--- NOTE | 2018-05-05 15:04 | CMPROGNOTE_ITS ---
- If Service Date Differs Date of service: 05/05/18 Time of Service: 14:59 Care Management Progress Note S/O: Kam is sitting up in bed eating lunch when this junior copywriter visits this morning. He requests information in regards to [facility], though when PONCHO presents him with the brochure, Kam states that this would still be too expensive for him. Kam reports speaking with [employer] and attempting to find financial help in regards to [facility], though having no luck. Kam also states that he is hopeful to return home tomorrow possibly, and that his SO Mine will transport him home. A: 73 y.o. male admitted for acute renal insufficiency. P: Kam will return home and no services will be needed when medically cleared for discharge. [facility] will transport.
[2018-05-05 15:15] VITALS: O2SAT 97
[2018-05-05] MEDS: Normal Saline Flush 10 ML SYR IVP (15:46)
[2018-05-05] MEDS: Pantoprazole 40 MG VIAL IVP (15:47)
[2018-05-05 16:28] VITALS: BP 133/73; PULSE 80; RESP 18; TEMP 36.8; O2SAT 97
[2018-05-05] MEDS: Ondansetron 4 MG/2 ML VIAL IVP (18:01)
[2018-05-05] MEDS: Acetaminophen 325 MG TAB PO ×2 (18:01→23:58)
[2018-05-05] MEDS: oxyCODONE 10 MG TAB PO (19:31)
[2018-05-05 19:56] LABS: Bilirubin Negative (Negative); Blood Negative (Negative); Clarity Clear; Glucose 100 mg/dL (Negative); Ketones Negative (Negative); Leukocyte Esterase Negative (Negative); Nitrite Negative (Negative); Specific Gravity 1.015 (1.005-1.025); Urobilinogen 0.2 EU/dL (Up TO 0.2)
[2018-05-06] VITALS (57 sets, daily range): BP systolic 49–180; BP diastolic 22–80; PULSE 82–111; RESP 6–38; TEMP 37.2–39.8; O2SAT 86–98
[2018-05-06] MEDS: Ondansetron 4 MG/2 ML VIAL IVP ×3 (06:05→21:33)
[2018-05-06] MEDS: Normal Saline Flush 10 ML SYR IVP ×4 (06:05→21:33)
[2018-05-06 07:52] LABS: Abs Immature Grans 0.02 k/cumm (0.0-0.09); Absolute Basophil Count 0.01 k/cumm (0.0-0.2); Absolute Lymphocyte Count 0.74 k/cumm (1.2-3.4); Basophils % 0.1; HCT 39.4 % (40.0-50.0); HGB 13.4 g/dL (13.5-17.5); Immature Grans % 0.2; Lymphocytes % 6.2; Mean Corpuscular Hemoglobin 29.6 pg (27.0-33.0); Mean Platelet Volume 9.6 fL (8.0-11.0); Monocytes % 5.9; Neutrophils % 87.6; Platelet Count 164 x1000/uL (130-400); RBC 4.53 m/cumm (4.50-6.00); RBC Distribution Width 15.3 % (11.8-14.1); White Blood Cell Count 11.95 k/cumm (4.4-10.8)
[2018-05-06 07:59] LABS: BUN 21 mg/dL (7-18); CREATININE 1.42 mg/dL (0.70-1.30); Calcium 9.7 mg/dL (8.5-10.1); Chloride 100 mmol/L (98-107); Estimated GFR 48.87 (mL/min/1.73m2); Glucose 158 mg/dL (70-100); Magnesium 2.1 mg/dL (1.8-2.4); Potassium 4.3 mmol/L (3.5-5.1); Sodium 133 mmol/L (136-145)
[2018-05-06 08:05] LABS: Absolute Monocyte Count 0.71 k/cumm (0.11-0.7); Absolute Neutrophil Count 10.47 k/cumm (1.2-6.7)
[2018-05-06] MEDS: Atorvastatin 20 MG TAB 60 MG PO (08:15)
[2018-05-06] MEDS: Acetaminophen 325 MG TAB PO ×3 (08:15→16:22)
[2018-05-06] MEDS: Carvedilol 6.25 MG TAB 12.5 MG PO (08:16)
[2018-05-06] MEDS: Fluticasone NASAL SPRAY 16 GM BTL NS (08:16)
[2018-05-06] MEDS: Fluticasone-Umeclidin-Vilanter [Trelegy Ellipta] IH (08:16)
[2018-05-06] MEDS: amLODIPine 10 MG TAB PO (08:16)
[2018-05-06] MEDS: Aspirin E.C. 81 MG TABEC PO (08:16)
[2018-05-06] MEDS: Magnesium Oxide 400 MG TAB PO ×2 (08:16→20:14)
[2018-05-06] MEDS: Fenofibrate, Micronized 145 MG TAB PO (08:16)
[2018-05-06] MEDS: glipiZIDE 5 MG TAB PO ×2 (08:16→17:36)
[2018-05-06] MEDS: Lisinopril 20 MG TAB PO (08:16)
[2018-05-06] MEDS: Heparin 5,000 UNITS/ML VIAL 5000 UNITS SC ×2 (08:17→15:56)
--- NOTE | 2018-05-06 09:18 | DI.RAD_ITS ---
SYMPTOM/DIAGNOSIS: FEVER PA AND LATERAL CHEST: The lungs are free of infiltrate. There is no pleural effusion. The heart is not enlarged. A stent is positioned over the aortic root. Cardiac pacing wires are in good position ending in the right atrium and right ventricle. SUMMARY: No evidence of acute cardiopulmonary disease.
--- NOTE | 2018-05-06 09:38 | PDOC.CMPRO ---
- If Service Date Differs Date of service: 05/06/18 Time of Service: 09:38 Care Management Progress Note S/O: Kam is lying in bed this morning, he visibly looks as though he is not feeling well, and per report has been febrile. Kam has BC pending, and had a flu swab done today and will have a CXR as well. CM to continue to offer support to Kam and his family. A: 73 y.o. male admitted for acute renal insufficiency. P: Kam will return home and no services will be needed when medically cleared for discharge. [facility] will transport.
[2018-05-06 11:18] LABS: Lactate-non-spesis 3.6 mmol/l (0.6-1.4)
[2018-05-06] MEDS: Normal Saline 1,000 ML 175 ML IV (11:45)
--- NOTE | 2018-05-06 13:00 | DI.CT_ITS ---
SYMPTOM/DIAGNOSIS: FEVER, NAUSEA, VOMITING ABDOMEN AND PELVIC CT: The study was carried out according to the usual protocol with an intravenous infusion of 100 cc's of Omnipaque 350. Small regions of dependent atelectasis are noted in the lung bases. There is fatty infiltration of the liver. No mass is demonstrated. The gallbladder is intact. There are no gallstones or ductal dilatation. The pancreas, spleen and kidneys are unremarkable save for two small cortical cysts involving the lower pole of the right kidney. There is no evidence of nephrolithiasis or a cyst or mass. The adrenals are intact. There is some thickening of the gastric wall likely related to incomplete distension. There is no evidence of bowel obstruction. There is evidence of diverticulosis without evidence of diverticulitis. A normal appearing appendix is demonstrated. The suboptimally distended bladder appears grossly normal. The reproductive organs as visualized appear intact with calcification noted in an enlarged prostate. Atherosclerotic changes are demonstrated in the aorta without evidence of an aneurysm. Note is made of a small fat containing umbilical hernia. There are mild degenerative changes involving the lumbar spine and hips. No acute bony abnormality is apparent. SUMMARY: No evidence of an acute intra-abdominal or pelvic abnormality. There is fatty infiltration of the liver and evidence of diverticulosis without findings to suggest diverticulitis. There is no evidence of an acute appendix. There is no evidence of bowel obstruction.
[2018-05-06] MEDS: Omnipaque 350 MG/ML 100 ML BTL IJ (13:05)
[2018-05-06] MEDS: Pantoprazole 40 MG VIAL IVP (15:56)
[2018-05-06 16:13] LABS: Lactate-non-spesis 3.2 mmol/l (0.6-1.4)
--- NOTE | 2018-05-06 17:11 | W.INDIABCONS ---
Date of service: 05/06/18 Time of Service: 17:11 Diabetes Inpatient Consult DESCRIPTION/ASSESSMENT: Appreciate diabetes consult for Mr. Pittman who is hospitalized with dehydration and chronic kidney disease. BMI 31 A1c 6.8 5 months ago. Blood sugars fasting 123-160; pre-meal blood sugars 103-210, highest today all 160mg/dl and above. He has not received insulin correction today as he is eating very little. He receives 20u Determir, his home dose. At home he also receives glipizide, metformin and sitagliptin. INTERVENTION: Historically Mr. Pittman has managed diabetes with A1c's in the 7 range consistently. Blood sugars here would be improved if insulin correction is given, as it is not intended to cover carbohydrate but to correct hyperglycemia. Will follow blood sugars and promote insulin correction if his blood sugars persist at current level, or if blood sugars increase. PLAN: Will follow blood sugars. Time Spent in Nutritional Counseling and Treatment: 0 minutes face to face inpatient
--- NOTE | 2018-05-06 17:35 | W.PM.PROGNOT ---
Date of Service Date of service: 05/06/18 Time of Service: 17:37 Assessment and Plan (1) Fever: Current visit: Yes Status: Acute Fairly acute onset of fever, with concurrently elevated Lactic Acid, worsening blood pressure, Tachycardia, and altered mental status. Appears to be septic but without known or suspected source. Urinalysis, Flu swab, CXR, and CT a/p all checked and without etiology. 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 Will also initiate renally dosed Oseltamivir and await influenza PCR. Continue aggressive IVFs. Low threshold for ICU transfer. (2) Acute kidney injury superimposed on chronic kidney disease: Current visit: Yes Status: Acute Symptoms at time of admission likely secondary to dehydration and hypotension. Current creatinine improved and at baseline. Resolved and creatinine stable. Continue to hold LAURA-I and Spironolactone. (3) Hypertension: Current visit: No Status: Chronic Initial presentation with hypotension - had improved but now with dropping blood pressure in setting of potential infection. Will continue to hold Spironolactone as well as Lasix, and hold previously reinitiated CCB and LAURA?I. Continue beta-yoan with strict hold parameters. Currently on IVFs. (4) CAD (coronary artery disease): Current visit: Yes Status: Chronic With reported STEMI [facility] cardiac arrest 12/2017. Serial Cardiac Biomarkers negative. Continue ASA, statin, BB. Also on Fenofibrate. (5) CHF (congestive heart failure): Current visit: Yes Status: Chronic ICMP with reported LVEF 40%, now with normalized ejection fraction. Continue aspirin and statin therapy. Also on LAURA-I (being held) and BB, with Spironolactone still on hold as above. Will reevaluate need for diuretic therapy in setting of recovered Ejection Fraction. (6) Diabetes mellitus, type II: Current visit: No Status: Chronic Continue basal insulin and Glipizide. Also on sliding scale coverage. Continue to hold Metformin. (7) Chronic pain disorder: Current visit: No Status: Chronic Continue home Oxycodone. (8) Chronic obstructive pulmonary disease: Current visit: No Status: Chronic (9) Nausea & vomiting: Current visit: Yes Status: Acute In setting of acute illness. CT a/p negative. Continue anti-emetics and monitor symptoms. Antibiotics/antiviral therapy as above. (10) DVT prophylaxis: Current visit: Yes Status: Acute SC Heparin. (11) Advance directive on file: Current visit: Yes Status: Acute DNR/DNI Subjective Interval history since last seen: 73 year old man with a prior history CHF, admitted from [facility] Emergency Department on 05/02 with a diagnosis of hypotension and DONTAE. Mr. Pittman has a past medical history significant for CAD, with a cardiac arrest 12/2017 due to an [place], for which he was treated at [facility] with cardiac catheterization. He also is s/p AICD, with a history of CHF with LVEF of reportedly 40% on Echocardiogram at [facility] but with normalized Ejection Fraction by repeat ECHO here without wall motion abnormalities. The patient also has a history of , with note of a bioprosthetic valve by his current ECHO, DM with peripheral neuropathy, ANNABELLE, dyslipidemia, HTN, CKD, chronic pain, and COPD. Other history includes ARDS in setting of infection with influenza at which time he required intubation and mechanical ventilation at [facility]. The patient presented to the ED with the sensation that he was going to have recurrent myocardial infarction. He denied chest pain, but reported dizziness and feeling unwell overall. Following transport to the hospital via EMS he was noted to be significantly hypotensive, with a SBP in the 70s and 80s prior to receiving IV Fluids. His serial troponins mwere negative and EKG reportedly unchanged. The patient was found to have evidence of DONTAE, found likely in the setting of overdiuresis, hypotensive, and dehydrated. The patient's original symptoms had essentially abated, his creatinine remained at baseline, and his blood pressure had become hypertensive. However, he had a bout of nausea overnight 2 nights ago, accompanied by vomiting following dinner. He also reported some mild dizziness, but had tolerated both his breakfast and lunch well. He was not discharged as a precaution, to continue to monitor his symptoms. Early this morning the patient became febrile and experienced rigors - he had developed a mild leukocytosis, and lactate was checked and elevated. Blood Cultures were obtained and remain pending. His urinalysis, CXR, Flu swab, and CT a/p were all without acute pathology. Exam Narrative Exam Narrative: General: Patient appears ill. HEENT: Neck supple. Dry Mucous Membranes. CV: Regular, mildly tachycardic, S1S2, No rubs, murmurs, or gallops. Pulmonary: Mild bibasilar crackles Abdomen: + Bowel Sounds, soft, nontender, nondistended Vascular: No lower extremity edema Psych: Normal mood and affect. Objective Objective Clinical Data: Abnormal lab results 05/06/18 05/06/18 05/06/18 Range/Units 07:15 07:15 11:10 WBC 11.95 H D (4.4-10.8) k/cumm Hgb 13.4 L (13.5-17.5) g/dL Hct 39.4 L (40.0-50.0) % RDW 15.3 H (11.8-14.1) % Absolute Neutrophils 10.47 H (1.2-6.7) k/cumm Absolute Lymphocytes 0.74 L (1.2-3.4) k/cumm Absolute Monocytes 0.71 H (0.11-0.7) k/cumm Sodium 133 L (136-145) mmol/L Anion Gap 12.0 H (3-11) mmol/L BUN 21 H D (7-18) mg/dL Creatinine 1.42 H (0.70-1.30) mg/dL Glucose 158 H (70-100) mg/dL Lactate 3.6 H (0.6-1.4) mmol/l 05/06/18 Range/Units 16:00 WBC (4.4-10.8) k/cumm Hgb (13.5-17.5) g/dL Hct (40.0-50.0) % RDW (11.8-14.1) % Absolute Neutrophils (1.2-6.7) k/cumm Absolute Lymphocytes (1.2-3.4) k/cumm Absolute Monocytes (0.11-0.7) k/cumm Sodium (136-145) mmol/L Anion Gap (3-11) mmol/L BUN (7-18) mg/dL Creatinine (0.70-1.30) mg/dL Glucose (70-100) mg/dL Lactate 3.2 H (0.6-1.4) mmol/l Vital Signs Temperature 39.1 C H 05/06/18 16:22 Temperature Source Tympanic 05/06/18 15:38 Pulse 109 H 05/06/18 15:38 Pulse Rhythm Regular 05/06/18 16:00 Pulse 90 05/02/18 13:21 Respiratory Rate 38 H 05/06/18 15:38 Respiratory Effort Incrsd Work of Breathing 05/06/18 16:00 Respiratory Depth Shallow 05/06/18 16:00 Respiratory Pattern Tachypnea 05/06/18 16:00 Blood Pressure 116/67 05/06/18 15:38 Blood Pressure Mean 57 05/02/18 13:20 Blood Pressure Position Sitting 05/02/18 10:18 Pulse Oximetry 95 05/06/18 15:38 Oxygen Delivery Method Room Air 05/06/18 15:38 Oxygen Flow Rate 0 05/06/18 15:38 Pain Level 0 05/06/18 15:38 Comment 05/06/18 11:34 Intake & Output 05/05/18 05/06/18 05/06/18 23:59 11:59 23:59 Intake Total 270 / 880 1082.083 / 1082.083 Balance 270 / 30 1082.083 / 1082.083 Weight 88.9 kg Intake: IV 962.083 / 962.083 Oral 250 / 860 120 / 120 Other: Urine Color Yellow Light Jazzmine Urine Appearance Clear Clear Clear Urine Odor Strong Comment voided in toilet, flushed incontinent of a large amount of urine Emesis Description Retching Voiding Methods Toilet Incontinent Laboratory Results WBC 11.95 k/cumm (4.4-10.8) H D 05/06/18 07:15 RBC 4.53 m/cumm (4.50-6.00) 05/06/18 07:15 Hgb 13.4 g/dL (13.5-17.5) L 05/06/18 07:15 Hct 39.4 % (40.0-50.0) L 05/06/18 07:15 MCV 87.0 fL (80-95) 05/06/18 07:15 MCH 29.6 pg (27.0-33.0) 05/06/18 07:15 MCHC 34.0 g/dL (32.0-36.0) 05/06/18 07:15 RDW 15.3 % (11.8-14.1) H 05/06/18 07:15 Plt Count 164 x1000/uL (130-400) 05/06/18 07:15 MPV 9.6 fL (8.0-11.0) 05/06/18 07:15 Immature Gran % 0.2 05/06/18 07:15 Neutrophils % 87.6 05/06/18 07:15 Lymphocytes % 6.2 05/06/18 07:15 Monocytes % 5.9 05/06/18 07:15 Eosinophils % 0.0 05/06/18 07:15 Basophils % 0.1 05/06/18 07:15 Absolute Neutrophils 10.47 k/cumm (1.2-6.7) H 05/06/18 07:15 Absolute Lymphocytes 0.74 k/cumm (1.2-3.4) L 05/06/18 07:15 Absolute Monocytes 0.71 k/cumm (0.11-0.7) H 05/06/18 07:15 Absolute Eosinophils 0.00 k/cumm (0.0-0.7) 05/06/18 07:15 Absolute Basophils 0.01 k/cumm (0.0-0.2) 05/06/18 07:15 PT 11.9 sec (9.3-11.0) H 05/02/18 10:35 INR 1.2 (0.9-1.1) H 05/02/18 10:35 APTT 20.7 sec (21.0-31.4) L 05/02/18 10:35 Sodium 133 mmol/L (136-145) L 05/06/18 07:15 Potassium 4.3 mmol/L (3.5-5.1) 05/06/18 07:15 Chloride 100 mmol/L (98-107) 05/06/18 07:15 Carbon Dioxide 21.0 mmol/L (21.0-32.0) 05/06/18 07:15 Anion Gap 12.0 mmol/L (3-11) H 05/06/18 07:15 BUN 21 mg/dL (7-18) H D 05/06/18 07:15 Creatinine 1.42 mg/dL (0.70-1.30) H 05/06/18 07:15 Estimated GFR/1.73 m2 48.87 (mL/min/1.73m2) 05/06/18 07:15 Glucose 158 mg/dL (70-100) H 05/06/18 07:15 Lactate 3.2 mmol/l (0.6-1.4) H 05/06/18 16:00 Calcium 9.7 mg/dL (8.5-10.1) 05/06/18 07:15 Magnesium 2.1 mg/dL (1.8-2.4) 05/06/18 07:15 Total Bilirubin 0.3 mg/dL (0.2-1.0) 05/02/18 10:35 AST 21 U/L (15-37) 05/02/18 10:35 ALT 27 U/L (12-78) 05/02/18 10:35 Alkaline Phosphatase 32 U/L (46-116) L 05/02/18 10:35 Troponin I < 0.02 ng/mL (0.00-0.06) 05/02/18 18:53 NT-Pro-B Natriuret Pep 633 pg/mL (-299) H 05/02/18 10:35 Total Protein 7.1 g/dL (6.4-8.2) 05/02/18 10:35 Albumin 3.9 g/dL (3.4-5.0) 05/02/18 10:35 Urine Color Yellow (Yellow) 05/05/18 15:30 Urine Clarity Clear 05/05/18 15:30 Urine pH 7.0 (5-8) 05/05/18 15:30 Ur Specific [place] 1.015 (1.005-1.025) 05/05/18 15:30 Urine Protein Negative mg/dL (Negative) 05/05/18 15:30 Urine Ketones Negative mg/dL (Negative) 05/05/18 15:30 Urine Blood Negative (Negative) 05/05/18 15:30 Urine Nitrite Negative (Negative) 05/05/18 15:30 Urine Bilirubin Negative (Negative) 05/05/18 15:30 Urine Urobilinogen 0.2 EU/dL (Up TO 0.2) 05/05/18 15:30 Ur Leukocyte Esterase Negative (Negative) 05/05/18 15:30 Urine Glucose 100 mg/dL (Negative) 05/05/18 15:30
[2018-05-06] MEDS: Insulin Aspart 300 UNITS/3 ML PEN SC (17:36)
--- NOTE | 2018-05-06 17:40 | PGE_ITS ---
Date of Service Date of service: 05/06/18 Time of Service: 17:37 Assessment and Plan (1) Fever: Current visit: Yes Status: Acute Fairly acute onset of fever, with concurrently elevated Lactic Acid, worsening blood pressure, Tachycardia, and altered mental status. Appears to be septic but without known or suspected source. Urinalysis, Flu swab, CXR, and CT a/p all checked and without etiology. 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 Will also initiate renally dosed Oseltamivir and await influenza PCR. Continue aggressive IVFs. Low threshold for ICU transfer. (2) Acute kidney injury superimposed on chronic kidney disease: Current visit: Yes Status: Acute Symptoms at time of admission likely secondary to dehydration and hypotension. Current creatinine improved and at baseline. Resolved and creatinine stable. Continue to hold LAURA-I and Spironolactone. (3) Hypertension: Current visit: No Status: Chronic Initial presentation with hypotension - had improved but now with dropping blood pressure in setting of potential infection. Will continue to hold Spironolactone as well as Lasix, and hold previously reinitiated CCB and LAURA?I. Continue beta-yoan with strict hold parameters. Currently on IVFs. (4) CAD (coronary artery disease): Current visit: Yes Status: Chronic With reported STEMI [facility] cardiac arrest 12/2017. Serial Cardiac Biomarkers negative. Continue ASA, statin, BB. Also on Fenofibrate. (5) CHF (congestive heart failure): Current visit: Yes Status: Chronic ICMP with reported LVEF 40%, now with normalized ejection fraction. Continue aspirin and statin therapy. Also on LAURA-I (being held) and BB, with Spironolactone still on hold as above. Will reevaluate need for diuretic therapy in setting of recovered Ejection Fraction. (6) Diabetes mellitus, type II: Current visit: No Status: Chronic Continue basal insulin and Glipizide. Also on sliding scale coverage. Continue to hold Metformin. (7) Chronic pain disorder: Current visit: No Status: Chronic Continue home Oxycodone. (8) Chronic obstructive pulmonary disease: Current visit: No Status: Chronic (9) Nausea & vomiting: Current visit: Yes Status: Acute In setting of acute illness. CT a/p negative. Continue anti-emetics and monitor symptoms. Antibiotics/antiviral therapy as above. (10) DVT prophylaxis: Current visit: Yes Status: Acute SC Heparin. (11) Advance directive on file: Current visit: Yes Status: Acute DNR/DNI Subjective Interval history since last seen: 73 year old man with a prior history CHF, admitted from [facility] Emergency Department on 05/02 with a diagnosis of hypotension and DONTAE. Mr. Pittman has a past medical history significant for CAD, with a cardiac arrest 12/2017 due to an [place], for which he was treated at [facility] with cardiac catheterization. He also is s/p AICD, with a history of CHF with LVEF of reportedly 40% on Echocardiogram at [facility] but with normalized Ejection Fraction by repeat ECHO here without wall motion abnormalities. The patient also has a history of , with note of a bioprosthetic valve by his current ECHO, DM with peripheral neuropathy, ANNABELLE, dyslipidemia, HTN, CKD, chronic pain, and COPD. Other history includes ARDS in setting of infection with influenza at which time he required intubation and mechanical ventilation at [facility]. The patient presented to the ED with the sensation that he was going to have recurrent myocardial infarction. He denied chest pain, but reported dizziness and feeling unwell overall. Following transport to the hospital via EMS he was noted to be significantly hypotensive, with a SBP in the 70s and 80s prior to receiving IV Fluids. His serial troponins mwere negative and EKG reportedly unchanged. The patient was found to have evidence of DONTAE, found likely in the setting of overdiuresis, hypotensive, and dehydrated. The patient's original symptoms had essentially abated, his creatinine remained at baseline, and his blood pressure had become hypertensive. However, he had a bout of nausea overnight 2 nights ago, accompanied by vomiting following dinner. He also reported some mild dizziness, but had tolerated both his breakfast and lunch well. He was not discharged as a precaution, to continue to monitor his symptoms. Early this morning the patient became febrile and experienced rigors - he had developed a mild leukocytosis, and lactate was checked and elevated. Blood Cultures were obtained and remain pending. His urinalysis, CXR, Flu swab, and CT a/p were all without acute pathology. Exam Narrative Exam Narrative: General: Patient appears ill. HEENT: Neck supple. Dry Mucous Membranes. CV: Regular, mildly tachycardic, S1S2, No rubs, murmurs, or gallops. Pulmonary: Mild bibasilar crackles Abdomen: + Bowel Sounds, soft, nontender, nondistended Vascular: No lower extremity edema Psych: Normal mood and affect. Objective Objective Clinical Data: Abnormal lab results 05/06/18 05/06/18 05/06/18 Range/Units 07:15 07:15 11:10 WBC 11.95 H D (4.4-10.8) k/cumm Hgb 13.4 L (13.5-17.5) g/dL Hct 39.4 L (40.0-50.0) % RDW 15.3 H (11.8-14.1) % Absolute Neutrophils 10.47 H (1.2-6.7) k/cumm Absolute Lymphocytes 0.74 L (1.2-3.4) k/cumm Absolute Monocytes 0.71 H (0.11-0.7) k/cumm Sodium 133 L (136-145) mmol/L Anion Gap 12.0 H (3-11) mmol/L BUN 21 H D (7-18) mg/dL Creatinine 1.42 H (0.70-1.30) mg/dL Glucose 158 H (70-100) mg/dL Lactate 3.6 H (0.6-1.4) mmol/l 05/06/18 Range/Units 16:00 WBC (4.4-10.8) k/cumm Hgb (13.5-17.5) g/dL Hct (40.0-50.0) % RDW (11.8-14.1) % Absolute Neutrophils (1.2-6.7) k/cumm Absolute Lymphocytes (1.2-3.4) k/cumm Absolute Monocytes (0.11-0.7) k/cumm Sodium (136-145) mmol/L Anion Gap (3-11) mmol/L BUN (7-18) mg/dL Creatinine (0.70-1.30) mg/dL Glucose (70-100) mg/dL Lactate 3.2 H (0.6-1.4) mmol/l Vital Signs Temperature 39.1 C H 05/06/18 16:22 Temperature Source Tympanic 05/06/18 15:38 Pulse 109 H 05/06/18 15:38 Pulse Rhythm Regular 05/06/18 16:00 Pulse 90 05/02/18 13:21 Respiratory Rate 38 H 05/06/18 15:38 Respiratory Effort Incrsd Work of Breathing 05/06/18 16:00 Respiratory Depth Shallow 05/06/18 16:00 Respiratory Pattern Tachypnea 05/06/18 16:00 Blood Pressure 116/67 05/06/18 15:38 Blood Pressure Mean 57 05/02/18 13:20 Blood Pressure Position Sitting 05/02/18 10:18 Pulse Oximetry 95 05/06/18 15:38 Oxygen Delivery Method Room Air 05/06/18 15:38 Oxygen Flow Rate 0 05/06/18 15:38 Pain Level 0 05/06/18 15:38 Comment 05/06/18 11:34 Intake & Output 05/05/18 05/06/18 05/06/18 23:59 11:59 23:59 Intake Total 270 / 880 1082.083 / 1082.083 Balance 270 / 30 1082.083 / 1082.083 Weight 88.9 kg Intake: IV 962.083 / 962.083 Oral 250 / 860 120 / 120 Other: Urine Color Yellow Light Jazzmine Urine Appearance Clear Clear Clear Urine Odor Strong Comment voided in toilet, flushed incontinent of a large amount of urine Emesis Description Retching Voiding Methods Toilet Incontinent Laboratory Results WBC 11.95 k/cumm (4.4-10.8) H D 05/06/18 07:15 RBC 4.53 m/cumm (4.50-6.00) 05/06/18 07:15 Hgb 13.4 g/dL (13.5-17.5) L 05/06/18 07:15 Hct 39.4 % (40.0-50.0) L 05/06/18 07:15 MCV 87.0 fL (80-95) 05/06/18 07:15 MCH 29.6 pg (27.0-33.0) 05/06/18 07:15 MCHC 34.0 g/dL (32.0-36.0) 05/06/18 07:15 RDW 15.3 % (11.8-14.1) H 05/06/18 07:15 Plt Count 164 x1000/uL (130-400) 05/06/18 07:15 MPV 9.6 fL (8.0-11.0) 05/06/18 07:15 Immature Gran % 0.2 05/06/18 07:15 Neutrophils % 87.6 05/06/18 07:15 Lymphocytes % 6.2 05/06/18 07:15 Monocytes % 5.9 05/06/18 07:15 Eosinophils % 0.0 05/06/18 07:15 Basophils % 0.1 05/06/18 07:15 Absolute Neutrophils 10.47 k/cumm (1.2-6.7) H 05/06/18 07:15 Absolute Lymphocytes 0.74 k/cumm (1.2-3.4) L 05/06/18 07:15 Absolute Monocytes 0.71 k/cumm (0.11-0.7) H 05/06/18 07:15 Absolute Eosinophils 0.00 k/cumm (0.0-0.7) 05/06/18 07:15 Absolute Basophils 0.01 k/cumm (0.0-0.2) 05/06/18 07:15 PT 11.9 sec (9.3-11.0) H 05/02/18 10:35 INR 1.2 (0.9-1.1) H 05/02/18 10:35 APTT 20.7 sec (21.0-31.4) L 05/02/18 10:35 Sodium 133 mmol/L (136-145) L 05/06/18 07:15 Potassium 4.3 mmol/L (3.5-5.1) 05/06/18 07:15 Chloride 100 mmol/L (98-107) 05/06/18 07:15 Carbon Dioxide 21.0 mmol/L (21.0-32.0) 05/06/18 07:15 Anion Gap 12.0 mmol/L (3-11) H 05/06/18 07:15 BUN 21 mg/dL (7-18) H D 05/06/18 07:15 Creatinine 1.42 mg/dL (0.70-1.30) H 05/06/18 07:15 Estimated GFR/1.73 m2 48.87 (mL/min/1.73m2) 05/06/18 07:15 Glucose 158 mg/dL (70-100) H 05/06/18 07:15 Lactate 3.2 mmol/l (0.6-1.4) H 05/06/18 16:00 Calcium 9.7 mg/dL (8.5-10.1) 05/06/18 07:15 Magnesium 2.1 mg/dL (1.8-2.4) 05/06/18 07:15 Total Bilirubin 0.3 mg/dL (0.2-1.0) 05/02/18 10:35 AST 21 U/L (15-37) 05/02/18 10:35 ALT 27 U/L (12-78) 05/02/18 10:35 Alkaline Phosphatase 32 U/L (46-116) L 05/02/18 10:35 Troponin I < 0.02 ng/mL (0.00-0.06) 05/02/18 18:53 NT-Pro-B Natriuret Pep 633 pg/mL (-299) H 05/02/18 10:35 Total Protein 7.1 g/dL (6.4-8.2) 05/02/18 10:35 Albumin 3.9 g/dL (3.4-5.0) 05/02/18 10:35 Urine Color Yellow (Yellow) 05/05/18 15:30 Urine Clarity Clear 05/05/18 15:30 Urine pH 7.0 (5-8) 05/05/18 15:30 Ur Specific [place] 1.015 (1.005-1.025) 05/05/18 15:30 Urine Protein Negative mg/dL (Negative) 05/05/18 15:30 Urine Ketones Negative mg/dL (Negative) 05/05/18 15:30 Urine Blood Negative (Negative) 05/05/18 15:30 Urine Nitrite Negative (Negative) 05/05/18 15:30 Urine Bilirubin Negative (Negative) 05/05/18 15:30 Urine Urobilinogen 0.2 EU/dL (Up TO 0.2) 05/05/18 15:30 Ur Leukocyte Esterase Negative (Negative) 05/05/18 15:30 Urine Glucose 100 mg/dL (Negative) 05/05/18 15:30
--- NOTE | 2018-05-06 18:52 | NUR.NOTE ---
Nursing Note: Report given to Tere Massey RN and patient transferred to ICU at 1845
[2018-05-06] MEDS: Normal Saline 1,000 ML 999 ML IV ×2 (19:01→23:14)
[2018-05-06] MEDS: Normal Saline 1,000 ML 250 ML IV ×2 (20:05→21:10)
[2018-05-06] MEDS: Oseltamivir 30 MG CAP PO (20:14)
[2018-05-06] MEDS: DOPamine 400 MG/250 ML BAG 11.668 MG IV (20:32)
--- NOTE | 2018-05-06 20:33 | W.PM.PROGNOT ---
Date of Service Date of service: 05/06/18 Time of Service: 20:34 Subjective Interval history since last seen: Patient became hypotensive and was transferred to ICU. Initial pressures in 80s/systolic, with paced rhythm 80. Given aggressive volume rescuscitation with initial increase BP to mid 80s, but now into 70s. pressors being initiated. Declines central line (requisite for levophed), will use Dopamine, starting 3.5, titrate to MAP greater 55. Blood cultures positive GPC and GNR. patient on broad spectrum antibiotics. Will continue as is. Objective Objective Clinical Data: Abnormal lab results 05/06/18 05/06/18 05/06/18 Range/Units 07:15 07:15 11:10 WBC 11.95 H D (4.4-10.8) k/cumm Hgb 13.4 L (13.5-17.5) g/dL Hct 39.4 L (40.0-50.0) % RDW 15.3 H (11.8-14.1) % Absolute Neutrophils 10.47 H (1.2-6.7) k/cumm Absolute Lymphocytes 0.74 L (1.2-3.4) k/cumm Absolute Monocytes 0.71 H (0.11-0.7) k/cumm Sodium 133 L (136-145) mmol/L Anion Gap 12.0 H (3-11) mmol/L BUN 21 H D (7-18) mg/dL Creatinine 1.42 H (0.70-1.30) mg/dL Glucose 158 H (70-100) mg/dL Lactate 3.6 H (0.6-1.4) mmol/l 05/06/18 Range/Units 16:00 WBC (4.4-10.8) k/cumm Hgb (13.5-17.5) g/dL Hct (40.0-50.0) % RDW (11.8-14.1) % Absolute Neutrophils (1.2-6.7) k/cumm Absolute Lymphocytes (1.2-3.4) k/cumm Absolute Monocytes (0.11-0.7) k/cumm Sodium (136-145) mmol/L Anion Gap (3-11) mmol/L BUN (7-18) mg/dL Creatinine (0.70-1.30) mg/dL Glucose (70-100) mg/dL Lactate 3.2 H (0.6-1.4) mmol/l Vital Signs Temperature 37.6 C H 05/06/18 17:22 Temperature Source Tympanic 05/06/18 15:38 Pulse 109 H 05/06/18 15:38 Pulse Rhythm Regular 05/06/18 16:00 Pulse 90 05/02/18 13:21 Respiratory Rate 38 H 05/06/18 15:38 Respiratory Effort Incrsd Work of Breathing 05/06/18 16:00 Respiratory Depth Shallow 05/06/18 16:00 Respiratory Pattern Tachypnea 05/06/18 16:00 Blood Pressure 72/46 L 05/06/18 18:41 Blood Pressure Mean 57 05/02/18 13:20 Blood Pressure Position Sitting 05/02/18 10:18 Pulse Oximetry 95 05/06/18 15:38 Oxygen Delivery Method Room Air 05/06/18 15:38 Oxygen Flow Rate 0 05/06/18 15:38 Pain Level 0 05/06/18 15:38 Comment 05/06/18 11:34 Intake & Output 05/05/18 05/06/18 05/06/18 23:59 11:59 23:59 Intake Total 270 / 880 1092.083 / 1092.083 Balance 270 / 30 1092.083 / 1092.083 Weight 88.9 kg Intake: IV 972.083 / 972.083 Oral 250 / 860 120 / 120 Other: Urine Color Yellow Light Jazzmine Urine Appearance Clear Clear Clear Urine Odor Strong Comment voided in toilet, flushed incontinent of a large amount of urine Emesis Description Retching Voiding Methods Toilet Incontinent Laboratory Results WBC 11.95 k/cumm (4.4-10.8) H D 05/06/18 07:15 RBC 4.53 m/cumm (4.50-6.00) 05/06/18 07:15 Hgb 13.4 g/dL (13.5-17.5) L 05/06/18 07:15 Hct 39.4 % (40.0-50.0) L 05/06/18 07:15 MCV 87.0 fL (80-95) 05/06/18 07:15 MCH 29.6 pg (27.0-33.0) 05/06/18 07:15 MCHC 34.0 g/dL (32.0-36.0) 05/06/18 07:15 RDW 15.3 % (11.8-14.1) H 05/06/18 07:15 Plt Count 164 x1000/uL (130-400) 05/06/18 07:15 MPV 9.6 fL (8.0-11.0) 05/06/18 07:15 Immature Gran % 0.2 05/06/18 07:15 Neutrophils % 87.6 05/06/18 07:15 Lymphocytes % 6.2 05/06/18 07:15 Monocytes % 5.9 05/06/18 07:15 Eosinophils % 0.0 05/06/18 07:15 Basophils % 0.1 05/06/18 07:15 Absolute Neutrophils 10.47 k/cumm (1.2-6.7) H 05/06/18 07:15 Absolute Lymphocytes 0.74 k/cumm (1.2-3.4) L 05/06/18 07:15 Absolute Monocytes 0.71 k/cumm (0.11-0.7) H 05/06/18 07:15 Absolute Eosinophils 0.00 k/cumm (0.0-0.7) 05/06/18 07:15 Absolute Basophils 0.01 k/cumm (0.0-0.2) 05/06/18 07:15 PT 11.9 sec (9.3-11.0) H 05/02/18 10:35 INR 1.2 (0.9-1.1) H 05/02/18 10:35 APTT 20.7 sec (21.0-31.4) L 05/02/18 10:35 Sodium 133 mmol/L (136-145) L 05/06/18 07:15 Potassium 4.3 mmol/L (3.5-5.1) 05/06/18 07:15 Chloride 100 mmol/L (98-107) 05/06/18 07:15 Carbon Dioxide 21.0 mmol/L (21.0-32.0) 05/06/18 07:15 Anion Gap 12.0 mmol/L (3-11) H 05/06/18 07:15 BUN 21 mg/dL (7-18) H D 05/06/18 07:15 Creatinine 1.42 mg/dL (0.70-1.30) H 05/06/18 07:15 Estimated GFR/1.73 m2 48.87 (mL/min/1.73m2) 05/06/18 07:15 Glucose 158 mg/dL (70-100) H 05/06/18 07:15 Lactate 3.2 mmol/l (0.6-1.4) H 05/06/18 16:00 Calcium 9.7 mg/dL (8.5-10.1) 05/06/18 07:15 Magnesium 2.1 mg/dL (1.8-2.4) 05/06/18 07:15 Total Bilirubin 0.3 mg/dL (0.2-1.0) 05/02/18 10:35 AST 21 U/L (15-37) 05/02/18 10:35 ALT 27 U/L (12-78) 05/02/18 10:35 Alkaline Phosphatase 32 U/L (46-116) L 05/02/18 10:35 Troponin I < 0.02 ng/mL (0.00-0.06) 05/02/18 18:53 NT-Pro-B Natriuret Pep 633 pg/mL (-299) H 05/02/18 10:35 Total Protein 7.1 g/dL (6.4-8.2) 05/02/18 10:35 Albumin 3.9 g/dL (3.4-5.0) 05/02/18 10:35 Urine Color Yellow (Yellow) 05/05/18 15:30 Urine Clarity Clear 05/05/18 15:30 Urine pH 7.0 (5-8) 05/05/18 15:30 Ur Specific [place] 1.015 (1.005-1.025) 05/05/18 15:30 Urine Protein Negative mg/dL (Negative) 05/05/18 15:30 Urine Ketones Negative mg/dL (Negative) 05/05/18 15:30 Urine Blood Negative (Negative) 05/05/18 15:30 Urine Nitrite Negative (Negative) 05/05/18 15:30 Urine Bilirubin Negative (Negative) 05/05/18 15:30 Urine Urobilinogen 0.2 EU/dL (Up TO 0.2) 05/05/18 15:30 Ur Leukocyte Esterase Negative (Negative) 05/05/18 15:30 Urine Glucose 100 mg/dL (Negative) 05/05/18 15:30
[2018-05-06] MEDS: Normal Saline 1,000 ML 1999 ML IV ×3 (21:45→22:47)
[2018-05-07] VITALS (182 sets, daily range): BP systolic 81–146; BP diastolic 34–92; PULSE 81–105; RESP 4–42; TEMP 31–39.1; O2SAT 87–100
[2018-05-07] MEDS: Heparin 5,000 UNITS/ML VIAL 5000 UNITS SC ×4 (00:19→22:53)
[2018-05-07] MEDS: Normal Saline 1,000 ML 250 ML IV (00:30)
[2018-05-07] MEDS: Albuterol/Ipratropium 3 ML UPD VIAL UPD ×3 (01:20→23:02)
[2018-05-07] MEDS: DOPamine 400 MG/250 ML BAG 50.006 MG IV (01:24)
[2018-05-07] MEDS: Albuterol 2.5 MG/3 ML INH SOLN VIAL UPD (05:25)
[2018-05-07 06:25] LABS: Lactate-non-spesis 2.6 mmol/l (0.6-1.4)
[2018-05-07 06:27] LABS: Abs Immature Grans 0.08 k/cumm (0.0-0.09); Absolute Basophil Count 0.02 k/cumm (0.0-0.2); Absolute Eosinophil Count 0.01 k/cumm (0.0-0.7); Absolute Lymphocyte Count 0.46 k/cumm (1.2-3.4); Absolute Monocyte Count 0.37 k/cumm (0.11-0.7); Absolute Neutrophil Count 7.06 k/cumm (1.2-6.7); Basophils % 0.3; Eosinophils % 0.1; HCT 32.1 % (40.0-50.0); Lymphocytes % 5.8; Mean Corp. HGB Concentration 34.3 g/dL (32.0-36.0); Mean Corpuscular Hemoglobin 29.8 pg (27.0-33.0); Mean Platelet Volume 9.2 fL (8.0-11.0); Monocytes % 4.6; Neutrophils % 88.2; Platelet Count 108 x1000/uL (130-400); RBC 3.69 m/cumm (4.50-6.00); RBC Distribution Width 15.4 % (11.8-14.1)
[2018-05-07 06:38] LABS: Anion Gap 13.3 mmol/L (3-11); BUN 22 mg/dL (7-18); CO2 17.7 mmol/L (21.0-32.0); CREATININE 1.76 mg/dL (0.70-1.30); Calcium 7.4 mg/dL (8.5-10.1); Chloride 106 mmol/L (98-107); Estimated GFR 38.15 (mL/min/1.73m2); Glucose 187 mg/dL (70-100); Magnesium 1.6 mg/dL (1.8-2.4); Potassium 3.9 mmol/L (3.5-5.1); Sodium 137 mmol/L (136-145)
--- NOTE | 2018-05-07 07:15 | PDOC.CMPRO ---
- If Service Date Differs Date of service: 05/07/18 Time of Service: 07:15 Care Management Progress Note S/O: Kam was transferred into the ICU last night and continues to require ICU care. He has an oxygen requirement at this time. Kam will have an Echo and BC drawn tomorrow. No change in DC plan. A: 73 y.o. male admitted for acute renal insufficiency. P: Kam will return home and no services will be needed when medically cleared for discharge. [facility] will transport.
[2018-05-07] MEDS: Fluticasone-Umeclidin-Vilanter [Trelegy Ellipta] IH (07:21)
[2018-05-07] MEDS: glipiZIDE 5 MG TAB PO ×2 (10:00→16:55)
[2018-05-07] MEDS: Atorvastatin 20 MG TAB 60 MG PO (10:01)
[2018-05-07] MEDS: Fenofibrate, Micronized 145 MG TAB PO (10:01)
[2018-05-07] MEDS: Magnesium Oxide 400 MG TAB PO ×2 (10:01→21:11)
[2018-05-07] MEDS: Oseltamivir 30 MG CAP PO ×2 (10:01→21:11)
[2018-05-07] MEDS: Aspirin E.C. 81 MG TABEC PO (10:02)
[2018-05-07] MEDS: Fluticasone NASAL SPRAY 16 GM BTL NS (10:02)
[2018-05-07] MEDS: MAGNESIUM SULFATE 2 GM/50 ML BAG IVPB (10:02)
[2018-05-07] MEDS: Normal Saline Flush 10 ML SYR IVP ×5 (10:03→22:20)
[2018-05-07] MEDS: Insulin Aspart 300 UNITS/3 ML PEN SC ×2 (10:04→12:49)
[2018-05-07] MEDS: Normal Saline 1,000 ML 175 ML IV (10:05)
[2018-05-07] MEDS: Acetaminophen 325 MG TAB PO ×3 (10:20→21:11)
--- NOTE | 2018-05-07 11:54 | W.PM.PROGNOT ---
Date of Service Date of service: 05/07/18 Time of Service: 11:54 Assessment and Plan (1) Sepsis: Current visit: Yes Status: Acute Acute onset of fever, with concurrently elevated Lactic Acid, hypotension, Tachycardia, and altered mental status - with Staph Aureus Bacteremia. Urinalysis, Flu swab, CXR, and CT a/p all checked and without etiology. Right hand as possible portal of entry at site of prior IV - no evidence of abscess. 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 Given cultures results will continue with Vancomycin only, now day #2. Will also continue renally dosed Oseltamivir and await influenza PCR. Monitor blood cultures and await sensitivities. Plan on ECHO and repeat blood cultures tomorrow. Decrease IVFs as patient appears to be mildly volume overloaded. Dopamine gtt on hold currently. Continue to monitor closely in the ICU. (2) Fever: Current visit: Yes Status: Acute Currently afebrile with above management. (3) Acute kidney injury superimposed on chronic kidney disease: Current visit: Yes Status: Acute Symptoms at time of admission likely secondary to dehydration and hypotension. Creatinine had improved, now mildly worse with development of hypotension and sepsis. Continue to hold LAURA-I and Spironolactone and monitor. (4) Hypertension: Current visit: No Status: Chronic Initial presentation with hypotension - had improved but now with dropping blood pressure in setting of sepsis and bacteremia. Will continue to hold Spironolactone as well as Lasix, and hold previously reinitiated CCB, BB, and LAURA?I. Currently on IVFs. Will likely need diuresis once sepsis is fully resolved. (5) CAD (coronary artery disease): Current visit: Yes Status: Chronic With reported STEMI [facility] cardiac arrest 12/2017. Serial Cardiac Biomarkers negative at time of admission. Continue ASA, statin, BB. Also on Fenofibrate. Currently asymptomatic. (6) CHF (congestive heart failure): Current visit: Yes Status: Chronic ICMP with reported LVEF 40%, now with normalized ejection fraction. Continue aspirin and statin therapy. Also on LAURA-I, Spironolactone, and BB (being held). Will reevaluate need for diuretic therapy in setting of recovered Ejection Fraction for the future, but will likely need diuresis acutely given fluid resuscitation in setting of hypotension and sepsis. (7) Diabetes mellitus, type II: Current visit: No Status: Chronic Continue basal insulin and Glipizide. Also on sliding scale coverage. Continue to hold Metformin. (8) Chronic pain disorder: Current visit: No Status: Chronic Continue home Oxycodone. (9) Chronic obstructive pulmonary disease: Current visit: No Status: Chronic (10) Nausea & vomiting: Current visit: Yes Status: Acute In setting of acute illness. CT a/p negative. Continue anti-emetics and monitor symptoms. Antibiotics/antiviral therapy as above. (11) DVT prophylaxis: Current visit: Yes Status: Acute SC Heparin. (12) Advance directive on file: Current visit: Yes Status: Acute DNR/DNI Subjective Interval history since last seen: 73 year old man with a prior history CHF, admitted from [facility] Emergency Department on 05/02 with a diagnosis of hypotension and DONTAE. Mr. Pittman has a past medical history significant for CAD, with a cardiac arrest 12/2017 due to an AR, for which [place] [facility] [place]. He also is s/p AICD, with a history of CHF with LVEF of reportedly 40% on [place] [facility] [place] with normalized Ejection Fraction by repeat ECHO here without wall motion abnormalities. The patient also has a history of , with note of a bioprosthetic valve by his current ECHO, DM with peripheral neuropathy, ANNABELLE, dyslipidemia, HTN, CKD, chronic pain, and COPD. Other history includes ARDS in setting of infection with influenza at which time he required intubation and mechanical [place] [facility] [place] The patient presented to the ED with the sensation that he was going to have recurrent myocardial infarction. He denied chest pain, but reported dizziness and feeling unwell overall. Following transport to the hospital via EMS he was noted to be significantly hypotensive, with a SBP in the 70s and 80s prior to receiving IV Fluids. His serial troponins mwere negative and EKG reportedly unchanged. The patient was found to have evidence of DONTAE, found likely in the setting of overdiuresis, hypotensive, and dehydrated. The patient's original symptoms had essentially abated, his creatinine remained at baseline, and his blood pressure had become hypertensive. However, he went on to develop nausea, vomiting, and dizzeness. Early yesterday morning the patient became febrile and experienced rigors - he had developed a mild leukocytosis, and lactate was checked and elevated. Subsequent work-up including flu swab, CXR, Urinalysis, and CT of the abdomen and pelvis were all negative. Blood Cultures were obtained and returned positive for Staph Aureus in all bottles. Only sources appears to be at the IV site he received in the field by EMS on his right hand, which is minimally erythematous but not cellulitic and without evidence of purulent drainage. He was moved to the ICU overnight due to hypotension, and required a short course of pressor therapy. Patient has been afebrile since 4 pm last night. Exam Narrative Exam Narrative: General: Patient appears less ill and now improved. Remains at baseline mental status. HEENT: Neck supple. Dry Mucous Membranes. CV: Regular, mildly tachycardic, S1S2, No rubs, murmurs, or gallops. Pulmonary: Mild bibasilar crackles Abdomen: + Bowel Sounds, soft, nontender, nondistended Vascular: No lower extremity edema Psych: Normal mood and affect. Objective Objective Clinical Data: Abnormal lab results 05/06/18 05/07/18 05/07/18 Range/Units 16:00 06:13 06:13 RBC (4.50-6.00) m/cumm Hgb (13.5-17.5) g/dL Hct (40.0-50.0) % RDW (11.8-14.1) % Plt Count (130-400) x1000/uL Absolute Neutrophils (1.2-6.7) k/cumm Absolute Lymphocytes (1.2-3.4) k/cumm Carbon Dioxide 17.7 L (21.0-32.0) mmol/L Anion Gap 13.3 H (3-11) mmol/L BUN 22 H (7-18) mg/dL Creatinine 1.76 H (0.70-1.30) mg/dL Glucose 187 H (70-100) mg/dL Lactate 3.2 H 2.6 H (0.6-1.4) mmol/l Calcium 7.4 L (8.5-10.1) mg/dL Magnesium 1.6 L (1.8-2.4) mg/dL 05/07/18 Range/Units 06:13 RBC 3.69 L (4.50-6.00) m/cumm Hgb 11.0 L D (13.5-17.5) g/dL Hct 32.1 L (40.0-50.0) % RDW 15.4 H (11.8-14.1) % Plt Count 108 L (130-400) x1000/uL Absolute Neutrophils 7.06 H (1.2-6.7) k/cumm Absolute Lymphocytes 0.46 L (1.2-3.4) k/cumm Carbon Dioxide (21.0-32.0) mmol/L Anion Gap (3-11) mmol/L BUN (7-18) mg/dL Creatinine (0.70-1.30) mg/dL Glucose (70-100) mg/dL Lactate (0.6-1.4) mmol/l Calcium (8.5-10.1) mg/dL Magnesium (1.8-2.4) mg/dL Vital Signs Temperature 36.7 C 05/07/18 08:20 Temperature Source Temporal Artery Scan 05/07/18 08:20 Pulse 86 05/07/18 09:03 Pulse Rhythm Regular 05/06/18 16:00 Pulse 85 05/07/18 11:20 Respiratory Rate 24 05/07/18 11:20 Respiratory Effort Non-Labored 05/07/18 08:20 Respiratory Depth Shallow 05/07/18 08:20 Respiratory Pattern Tachypnea 05/07/18 08:20 Blood Pressure 125/56 L 05/07/18 09:03 Blood Pressure Mean 73 05/07/18 09:03 Blood Pressure Position Sitting 05/02/18 10:18 Pulse Oximetry 98 05/07/18 09:56 Oxygen Delivery Method Hi Flow Nasal Cannula 05/07/18 09:56 Oxygen Flow Rate 50 05/07/18 09:56 Fraction of Inspired Oxygen (FIO2) 30 05/07/18 09:56 Pain Level 6 05/07/18 10:20 Comment 05/06/18 11:34 Intake & Output 05/06/18 05/06/18 05/07/18 11:59 23:59 11:59 Intake Total 7333.051 / 8098.951 2328.374 / 2328.374 Output Total 1075 / 1075 Balance 7333.051 / 8098.951 1253.374 / 1253.374 Weight 88.9 kg 88.9 kg 96.3 kg Intake: IV 7213.051 / 7978.951 374 / 2077.374 Oral 120 / 120 250 / 250 Output: Urine 1075 / 1075 Other: Urine Color Yellow Yellow Light Jazzmine Urine Appearance Clear Clear Clear Urine Odor Strong Normal Comment voided in toilet, flushed incontinent of a large amount of urine Mixed with stool and absorbed into toilet paper. Amount approximated Stool Occult Blood Positive Stool Size Small Stool Characteristics Soft Formed Emesis Description Retching Voiding Methods Incontinent Bedside Commode Laboratory Results WBC 8.00 k/cumm (4.4-10.8) D 05/07/18 06:13 RBC 3.69 m/cumm (4.50-6.00) L 05/07/18 06:13 Hgb 11.0 g/dL (13.5-17.5) L D 05/07/18 06:13 Hct 32.1 % (40.0-50.0) L 05/07/18 06:13 MCV 87.0 fL (80-95) 05/07/18 06:13 MCH 29.8 pg (27.0-33.0) 05/07/18 06:13 MCHC 34.3 g/dL (32.0-36.0) 05/07/18 06:13 RDW 15.4 % (11.8-14.1) H 05/07/18 06:13 Plt Count 108 x1000/uL (130-400) L 05/07/18 06:13 MPV 9.2 fL (8.0-11.0) 05/07/18 06:13 Immature Gran % 1.0 05/07/18 06:13 Neutrophils % 88.2 05/07/18 06:13 Lymphocytes % 5.8 05/07/18 06:13 Monocytes % 4.6 05/07/18 06:13 Eosinophils % 0.1 05/07/18 06:13 Basophils % 0.3 05/07/18 06:13 Absolute Neutrophils 7.06 k/cumm (1.2-6.7) H 05/07/18 06:13 Absolute Lymphocytes 0.46 k/cumm (1.2-3.4) L 05/07/18 06:13 Absolute Monocytes 0.37 k/cumm (0.11-0.7) 05/07/18 06:13 Absolute Eosinophils 0.01 k/cumm (0.0-0.7) 05/07/18 06:13 Absolute Basophils 0.02 k/cumm (0.0-0.2) 05/07/18 06:13 PT 11.9 sec (9.3-11.0) H 05/02/18 10:35 INR 1.2 (0.9-1.1) H 05/02/18 10:35 APTT 20.7 sec (21.0-31.4) L 05/02/18 10:35 Sodium 137 mmol/L (136-145) 05/07/18 06:13 Potassium 3.9 mmol/L (3.5-5.1) 05/07/18 06:13 Chloride 106 mmol/L (98-107) 05/07/18 06:13 Carbon Dioxide 17.7 mmol/L (21.0-32.0) L 05/07/18 06:13 Anion Gap 13.3 mmol/L (3-11) H 05/07/18 06:13 BUN 22 mg/dL (7-18) H 05/07/18 06:13 Creatinine 1.76 mg/dL (0.70-1.30) H 05/07/18 06:13 Estimated GFR/1.73 m2 38.15 (mL/min/1.73m2) 05/07/18 06:13 Glucose 187 mg/dL (70-100) H 05/07/18 06:13 Lactate 2.6 mmol/l (0.6-1.4) H 05/07/18 06:13 Calcium 7.4 mg/dL (8.5-10.1) L 05/07/18 06:13 Magnesium 1.6 mg/dL (1.8-2.4) L 05/07/18 06:13 Total Bilirubin 0.3 mg/dL (0.2-1.0) 05/02/18 10:35 AST 21 U/L (15-37) 05/02/18 10:35 ALT 27 U/L (12-78) 05/02/18 10:35 Alkaline Phosphatase 32 U/L (46-116) L 05/02/18 10:35 Troponin I < 0.02 ng/mL (0.00-0.06) 05/02/18 18:53 NT-Pro-B Natriuret Pep 633 pg/mL (-299) H 05/02/18 10:35 Total Protein 7.1 g/dL (6.4-8.2) 05/02/18 10:35 Albumin 3.9 g/dL (3.4-5.0) 05/02/18 10:35 Urine Color Yellow (Yellow) 05/05/18 15:30 Urine Clarity Clear 05/05/18 15:30 Urine pH 7.0 (5-8) 05/05/18 15:30 Ur Specific [place] 1.015 (1.005-1.025) 05/05/18 15:30 Urine Protein Negative mg/dL (Negative) 05/05/18 15:30 Urine Ketones Negative mg/dL (Negative) 05/05/18 15:30 Urine Blood Negative (Negative) 05/05/18 15:30 Urine Nitrite Negative (Negative) 05/05/18 15:30 Urine Bilirubin Negative (Negative) 05/05/18 15:30 Urine Urobilinogen 0.2 EU/dL (Up TO 0.2) 05/05/18 15:30 Ur Leukocyte Esterase Negative (Negative) 05/05/18 15:30 Urine Glucose 100 mg/dL (Negative) 05/05/18 15:30
--- NOTE | 2018-05-07 11:59 | PGE_ITS ---
Date of Service Date of service: 05/07/18 Time of Service: 11:54 Assessment and Plan (1) Sepsis: Current visit: Yes Status: Acute Acute onset of fever, with concurrently elevated Lactic Acid, hypotension, Tachycardia, and altered mental status - with Staph Aureus Bacteremia. Urinalysis, Flu swab, CXR, and CT a/p all checked and without etiology. Right hand as possible portal of entry at site of prior IV - no evidence of abscess. 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 Given cultures results will continue with Vancomycin only, now day #2. Will also continue renally dosed Oseltamivir and await influenza PCR. Monitor blood cultures and await sensitivities. Plan on ECHO and repeat blood cultures tomorrow. Decrease IVFs as patient appears to be mildly volume overloaded. Dopamine gtt on hold currently. Continue to monitor closely in the ICU. (2) Fever: Current visit: Yes Status: Acute Currently afebrile with above management. (3) Acute kidney injury superimposed on chronic kidney disease: Current visit: Yes Status: Acute Symptoms at time of admission likely secondary to dehydration and hypotension. Creatinine had improved, now mildly worse with development of hypotension and sepsis. Continue to hold LAURA-I and Spironolactone and monitor. (4) Hypertension: Current visit: No Status: Chronic Initial presentation with hypotension - had improved but now with dropping blood pressure in setting of sepsis and bacteremia. Will continue to hold Spironolactone as well as Lasix, and hold previously reinitiated CCB, BB, and LAURA?I. Currently on IVFs. Will likely need diuresis once sepsis is fully resolved. (5) CAD (coronary artery disease): Current visit: Yes Status: Chronic With reported STEMI [facility] cardiac arrest 12/2017. Serial Cardiac Biomarkers negative at time of admission. Continue ASA, statin, BB. Also on Fenofibrate. Currently asymptomatic. (6) CHF (congestive heart failure): Current visit: Yes Status: Chronic ICMP with reported LVEF 40%, now with normalized ejection fraction. Continue aspirin and statin therapy. Also on LAURA-I, Spironolactone, and BB (being held). Will reevaluate need for diuretic therapy in setting of recovered Ejection Fraction for the future, but will likely need diuresis acutely given fluid resuscitation in setting of hypotension and sepsis. (7) Diabetes mellitus, type II: Current visit: No Status: Chronic Continue basal insulin and Glipizide. Also on sliding scale coverage. Continue to hold Metformin. (8) Chronic pain disorder: Current visit: No Status: Chronic Continue home Oxycodone. (9) Chronic obstructive pulmonary disease: Current visit: No Status: Chronic (10) Nausea & vomiting: Current visit: Yes Status: Acute In setting of acute illness. CT a/p negative. Continue anti-emetics and monitor symptoms. Antibiotics/antiviral therapy as above. (11) DVT prophylaxis: Current visit: Yes Status: Acute SC Heparin. (12) Advance directive on file: Current visit: Yes Status: Acute DNR/DNI Subjective Interval history since last seen: 73 year old man with a prior history CHF, admitted from [facility] Department on 05/02 with a diagnosis of hypotension and DONTAE. Mr. Pittman has a past medical history significant for CAD, with a cardiac arrest 12/2017 due to an LA, for which [place] [facility] [place]. He also is s/p AICD, with a history of CHF with LVEF of reportedly 40% on [place] [facility] [place] with normalized Ejection Fraction by repeat ECHO here without wall motion abnormalities. The patient also has a history of , with note of a bioprosthetic valve by his current ECHO, DM with peripheral neuropathy, ANNABELLE, dyslipidemia, HTN, CKD, chronic pain, and COPD. Other history includes ARDS in setting of infection with influenza at which time he required intubation and mechanical [place] [facility] [place] The patient presented to the ED with the sensation that he was going to have recurrent myocardial infarction. He denied chest pain, but reported dizziness and feeling unwell overall. Following transport to the hospital via EMS he was noted to be significantly hypotensive, with a SBP in the 70s and 80s prior to receiving IV Fluids. His serial troponins mwere negative and EKG reportedly unchanged. The patient was found to have evidence of DONTAE, found likely in the setting of overdiuresis, hypotensive, and dehydrated. The patient's original symptoms had essentially abated, his creatinine remained at baseline, and his blood pressure had become hypertensive. However, he went on to develop nausea, vomiting, and dizzeness. Early yesterday morning the patient became febrile and experienced rigors - he had developed a mild leukocytosis, and lactate was checked and elevated. Subsequent work-up including flu swab, CXR, Urinalysis, and CT of the abdomen and pelvis were all negative. Blood Cult ures were obtained and returned positive for Staph Aureus in all bottles. Only sources appears to be at the IV site he received in the field by EMS on his right hand, which is minimally erythematous but not cellulitic and without evidence of purulent drainage. He was moved to the ICU overnight due to hypotension, and required a short course of pressor therapy. Patient has been afebrile since 4 pm last night. Exam Narrative Exam Narrative: General: Patient appears less ill and now improved. Remains at baseline mental status. HEENT: Neck supple. Dry Mucous Membranes. CV: Regular, mildly tachycardic, S1S2, No rubs, murmurs, or gallops. Pulmonary: Mild bibasilar crackles Abdomen: + Bowel Sounds, soft, nontender, nondistended Vascular: No lower extremity edema Psych: Normal mood and affect. Objective Objective Clinical Data: Abnormal lab results 05/06/18 05/07/18 05/07/18 Range/Units 16:00 06:13 06:13 RBC (4.50-6.00) m/cumm Hgb (13.5-17.5) g/dL Hct (40.0-50.0) % RDW (11.8-14.1) % Plt Count (130-400) x1000/uL Absolute Neutrophils (1.2-6.7) k/cumm Absolute Lymphocytes (1.2-3.4) k/cumm Carbon Dioxide 17.7 L (21.0-32.0) mmol/L Anion Gap 13.3 H (3-11) mmol/L BUN 22 H (7-18) mg/dL Creatinine 1.76 H (0.70-1.30) mg/dL Glucose 187 H (70-100) mg/dL Lactate 3.2 H 2.6 H (0.6-1.4) mmol/l Calcium 7.4 L (8.5-10.1) mg/dL Magnesium 1.6 L (1.8-2.4) mg/dL 05/07/18 Range/Units 06:13 RBC 3.69 L (4.50-6.00) m/cumm Hgb 11.0 L D (13.5-17.5) g/dL Hct 32.1 L (40.0-50.0) % RDW 15.4 H (11.8-14.1) % Plt Count 108 L (130-400) x1000/uL Absolute Neutrophils 7.06 H (1.2-6.7) k/cumm Absolute Lymphocytes 0.46 L (1.2-3.4) k/cumm Carbon Dioxide (21.0-32.0) mmol/L Anion Gap (3-11) mmol/L BUN (7-18) mg/dL Creatinine (0.70-1.30) mg/dL Glucose (70-100) mg/dL Lactate (0.6-1.4) mmol/l Calcium (8.5-10.1) mg/dL Magnesium (1.8-2.4) mg/dL Vital Signs Temperature 36.7 C 05/07/18 08:20 Temperature Source Temporal Artery Scan 05/07/18 08:20 Pulse 86 05/07/18 09:03 Pulse Rhythm Regular 05/06/18 16:00 Pulse 85 05/07/18 11:20 Respiratory Rate 24 05/07/18 11:20 Respiratory Effort Non-Labored 05/07/18 08:20 Respiratory Depth Shallow 05/07/18 08:20 Respiratory Pattern Tachypnea 05/07/18 08:20 Blood Pressure 125/56 L 05/07/18 09:03 Blood Pressure Mean 73 05/07/18 09:03 Blood Pressure Position Sitting 05/02/18 10:18 Pulse Oximetry 98 05/07/18 09:56 Oxygen Delivery Method Hi Flow Nasal Cannula 05/07/18 09:56 Oxygen Flow Rate 50 05/07/18 09:56 Fraction of Inspired Oxygen (FIO2) 30 05/07/18 09:56 Pain Level 6 05/07/18 10:20 Comment 05/06/18 11:34 Intake & Output 05/06/18 05/06/18 05/07/18 11:59 23:59 11:59 Intake Total 7333.051 / 8098.951 2328.374 / 2328.374 Output Total 1075 / 1075 Balance 7333.051 / 8098.951 1253.374 / 1253.374 Weight 88.9 kg 88.9 kg 96.3 kg Intake: IV 7213.051 / 7978.951 2077.374 / 2077. Oral 120 / 120 250 / 250 Output: Urine 1075 / 1075 Other: Urine Color Yellow Yellow Light Jazzmine Urine Appearance Clear Clear Clear Urine Odor Strong Normal Comment voided in toilet, flushed incontinent of a large amount of urine Mixed with stool and absorbed into toilet paper. Amount approximated Stool Occult Blood Positive Stool Size Small Stool Characteristics Soft Formed Emesis Description Retching Voiding Methods Incontinent Bedside Commode Laboratory Results WBC 8.00 k/cumm (4.4-10.8) D 05/07/18 06:13 RBC 3.69 m/cumm (4.50-6.00) L 05/07/18 06:13 Hgb 11.0 g/dL (13.5-17.5) L D 05/07/18 06:13 Hct 32.1 % (40.0-50.0) L 05/07/18 06:13 MCV 87.0 fL (80-95) 05/07/18 06:13 MCH 29.8 pg (27.0-33.0) 05/07/18 06:13 MCHC 34.3 g/dL (32.0-36.0) 05/07/18 06:13 RDW 15.4 % (11.8-14.1) H 05/07/18 06:13 Plt Count 108 x1000/uL (130-400) L 05/07/18 06:13 MPV 9.2 fL (8.0-11.0) 05/07/18 06:13 Immature Gran % 1.0 05/07/18 06:13 Neutrophils % 88.2 05/07/18 06:13 Lymphocytes % 5.8 05/07/18 06:13 Monocytes % 4.6 05/07/18 06:13 Eosinophils % 0.1 05/07/18 06:13 Basophils % 0.3 05/07/18 06:13 Absolute Neutrophils 7.06 k/cumm (1.2-6.7) H 05/07/18 06:13 Absolute Lymphocytes 0.46 k/cumm (1.2-3.4) L 05/07/18 06:13 Absolute Monocytes 0.37 k/cumm (0.11-0.7) 05/07/18 06:13 Absolute Eosinophils 0.01 k/cumm (0.0-0.7) 05/07/18 06:13 Absolute Basophils 0.02 k/cumm (0.0-0.2) 05/07/18 06:13 PT 11.9 sec (9.3-11.0) H 05/02/18 10:35 INR 1.2 (0.9-1.1) H 05/02/18 10:35 APTT 20.7 sec (21.0-31.4) L 05/02/18 10:35 Sodium 137 mmol/L (136-145) 05/07/18 06:13 Potassium 3.9 mmol/L (3.5-5.1) 05/07/18 06:13 Chloride 106 mmol/L (98-107) 05/07/18 06:13 Carbon Dioxide 17.7 mmol/L (21.0-32.0) L 05/07/18 06:13 Anion Gap 13.3 mmol/L (3-11) H 05/07/18 06:13 BUN 22 mg/dL (7-18) H 05/07/18 06:13 Creatinine 1.76 mg/dL (0.70-1.30) H 05/07/18 06:13 Estimated GFR/1.73 m2 38.15 (mL/min/1.73m2) 05/07/18 06:13 Glucose 187 mg/dL (70-100) H 05/07/18 06:13 Lactate 2.6 mmol/l (0.6-1.4) H 05/07/18 06:13 Calcium 7.4 mg/dL (8.5-10.1) L 05/07/18 06:13 Magnesium 1.6 mg/dL (1.8-2.4) L 05/07/18 06:13 Total Bilirubin 0.3 mg/dL (0.2-1.0) 05/02/18 10:35 AST 21 U/L (15-37) 05/02/18 10:35 ALT 27 U/L (12-78) 05/02/18 10:35 Alkaline Phosphatase 32 U/L (46-116) L 05/02/18 10:35 Troponin I < 0.02 ng/mL (0.00-0.06) 05/02/18 18:53 NT-Pro-B Natriuret Pep 633 pg/mL (-299) H 05/02/18 10:35 Total Protein 7.1 g/dL (6.4-8.2) 05/02/18 10:35 Albumin 3.9 g/dL (3.4-5.0) 05/02/18 10:35 Urine Color Yellow (Yellow) 05/05/18 15:30 Urine Clarity Clear 05/05/18 15:30 Urine pH 7.0 (5-8) 05/05/18 15:30 Ur Specific Nicholson 1.015 (1.005-1.025) 05/05/18 15:30 Urine Protein Negative mg/dL (Negative) 05/05/18 15:30 Urine Ketones Negative mg/dL (Negative) 05/05/18 15:30 Urine Blood Negative (Negative) 05/05/18 15:30 Urine Nitrite Negative (Negative) 05/05/18 15:30 Urine Bilirubin Negative (Negative) 05/05/18 15:30 Urine Urobilinogen 0.2 EU/dL (Up TO 0.2) 05/05/18 15:30 Ur Leukocyte Esterase Negative (Negative) 05/05/18 15:30 Urine Glucose 100 mg/dL (Negative) 05/05/18 15:30
[2018-05-07] MEDS: Pantoprazole 40 MG VIAL IVP (16:55)
[2018-05-07] MEDS: Mirtazapine 15 MG TAB PO (21:11)
[2018-05-07] MEDS: Normal Saline 1,000 ML 125 ML IV (22:20)
[2018-05-07 22:46] LABS: Troponin I 0.34 ng/mL (0.00-0.06)
[2018-05-07] MEDS: Docusate Sodium 100 MG CAP PO (22:54)
[2018-05-07] MEDS: oxyCODONE 10 MG TAB PO (22:54)
[2018-05-07 23:41] LABS: Lactate-non-spesis 1.1 mmol/l (0.6-1.4)
[2018-05-07] MEDS: Metoprolol 5 MG/5 ML VIAL 2.5 MG IVP (23:57)
[2018-05-08] VITALS (107 sets, daily range): BP systolic 110–164; BP diastolic 47–92; PULSE 58–89; RESP 10–37; TEMP 36.5–37.5; O2SAT 88–98
[2018-05-08 00:05] LABS: NT-proBNP 7642 pg/mL
[2018-05-08 01:39] LABS: Troponin I 0.33 ng/mL (0.00-0.06)
[2018-05-08] MEDS: Normal Saline Flush 10 ML SYR IVP ×2 (02:09→16:35)
[2018-05-08] MEDS: Furosemide 40 MG/4 ML VIAL IVP (02:09)
--- NOTE | 2018-05-08 03:30 | DI.RAD_ITS ---
SYMPTOM/DIAGNOSIS: DYSPNEA PORTABLE AP CHEST: There are patchy densities in both lungs and what appears to represent a small bilateral pleural effusion. The heart is not enlarged. There is some prominence of the upper lobe vasculature. IMPRESSION: Findings most consistent with congestive failure. The possibility of a concomitant acute pneumonitis is raised.
--- NOTE | 2018-05-08 04:07 | DI.VRAD_ITS ---
EXAM: XR Chest, 1 View EXAM DATE/TIME: 05/08/2018 1:46 AM CLINICAL HISTORY: 73 years old, male; Signs and symptoms; Dyspnea TECHNIQUE: Imaging protocol: XR of the chest, 1 view. COMPARISON: CR XR CHEST 2V PA LATERAL 05/06/2018 9:18 AM FINDINGS: Lungs: Patchy bilateral pulmonary opacities may reflect a nonspecific interstitial process, potentially infectious, as septal lines are not definitely visualized. Differential would include atypical pulmonary edema. Pacemaker overlies the left upper lobe Pleural space: Unremarkable. No pleural effusion. No pneumothorax. Heart/Mediastinum: Unremarkable. No cardiomegaly. Bones/joints: Unremarkable. IMPRESSION: Patchy bilateral pulmonary opacities may reflect a nonspecific interstitial process, potentially infectious, as septal lines are not definitely visualized. Differential would include atypical pulmonary edema. Dictated and Authenticated by: Jayme Ventura MD. Ordering[facility] Justino Lopez MD
[2018-05-08 05:35] LABS: Abs Immature Grans 0.02 k/cumm (0.0-0.09); Absolute Basophil Count 0.01 k/cumm (0.0-0.2); Absolute Eosinophil Count 0.06 k/cumm (0.0-0.7); Absolute Lymphocyte Count 0.32 k/cumm (1.2-3.4); Absolute Monocyte Count 0.38 k/cumm (0.11-0.7); Absolute Neutrophil Count 4.87 k/cumm (1.2-6.7); Basophils % 0.2; Eosinophils % 1.1; HCT 32.3 % (40.0-50.0); HGB 11.1 g/dL (13.5-17.5); Immature Grans % 0.4; Lymphocytes % 5.7; Mean Corp. HGB Concentration 34.4 g/dL (32.0-36.0); Mean Corpuscular Hemoglobin 29.8 pg (27.0-33.0); Mean Corpuscular Volume 86.8 fL (80-95); Mean Platelet Volume 9.6 fL (8.0-11.0); Monocytes % 6.7; Neutrophils % 85.9; Platelet Count 110 x1000/uL (130-400); RBC 3.72 m/cumm (4.50-6.00); RBC Distribution Width 16.2 % (11.8-14.1); White Blood Cell Count 5.66 k/cumm (4.4-10.8)
[2018-05-08 05:42] LABS: Anion Gap 11.8 mmol/L (3-11); BUN 18 mg/dL (7-18); CO2 21.2 mmol/L (21.0-32.0); CREATININE 1.41 mg/dL (0.70-1.30); Calcium 8.2 mg/dL (8.5-10.1); Chloride 104 mmol/L (98-107); Estimated GFR 49.27 (mL/min/1.73m2); Glucose 113 mg/dL (70-100); Magnesium 2.1 mg/dL (1.8-2.4); Potassium 3.7 mmol/L (3.5-5.1); Sodium 137 mmol/L (136-145)
[2018-05-08 05:52] LABS: Troponin I 0.36 ng/mL (0.00-0.06)
[2018-05-08] MEDS: Fluticasone-Umeclidin-Vilanter [Trelegy Ellipta] IH (08:57)
[2018-05-08] MEDS: Oseltamivir 30 MG CAP PO (09:08)
[2018-05-08] MEDS: POTASSIUM CHLORIDE 20 MEQ, POTASSIUM CHLORIDE 10 MEQ 30 MEQ PO (09:08)
[2018-05-08] MEDS: glipiZIDE 5 MG TAB PO ×2 (09:09→16:31)
[2018-05-08] MEDS: Atorvastatin 20 MG TAB 60 MG PO (09:09)
[2018-05-08] MEDS: Magnesium Oxide 400 MG TAB PO ×2 (09:09→21:25)
[2018-05-08] MEDS: Fenofibrate, Micronized 145 MG TAB PO (09:09)
--- NOTE | 2018-05-08 09:15 | MERGE_ITS ---
*[facility]* * Cardiology* [address] [place] [address] Date of study: 05/08/2018 Transthoracic Echocardiography M-mode, complete 2D, complete spectral Doppler, and color Doppler *STUDY CONCLUSIONS* Impressions: No evidence of endocarditis, however, this cannot be ruled out, as sensitivity for this finding on TTE is <50%. Apparent increase in gradient across the TAVR valve. Summary: 1. Left ventricle: The cavity size was normal. Wall thickness was increased in a pattern of moderate LVH. Systolic function was hyperdynamic. The estimated ejection fraction was 65-70%. Wall motion was normal; there were no regional wall motion abnormalities. 2. Aortic valve: A bioprosthesis (TAVR Wiley Shon) was present and functioning normally. Transvalvular velocity was increased more than expected. Peak velocity (S): 3.3m/sec. Mean gradient (S): 24.9mm Hg. 3. Mitral valve: Severely calcified annulus. Moderately thickened leaflets. Mobility was mildly restricted. Valve area by pressure half-time: 2cm^2. 4. Left atrium: The atrium was mildly dilated. 5. Right ventricle: The cavity size was mildly dilated. Wall thickness was normal. Systolic function was normal. 6. Right atrium: The atrium was mildly dilated. 7. Pulmonary arteries: Pulmonary systolic pressure was mildly increased. PA peak pressure: 48mm Hg (S). *PATIENT PRESENTATION* Height: 167.6cm ((66in) ) S/D Pressure: 124 / 60 Weight: 96.2kg ((211.6lb) ) BSA: 2.15m^2 Test start time: :20 AM. Test stop time: 10:20 AM. PERFORMING Unknown ORDERING Irving Mercado REFERRING Irving Mercado PERFORMING [facility] HISTORIOGRAPHER RT Antolin Jamil)(CT), [facility] CONSULTING Tien Galicia *PROCEDURE DATA* Procedure information: This study was interpreted by [facility]. Pertinent images and digital data are archived for permanent storage and are available for subsequent review. Study status: Routine. Transthoracic echocardiography. M-mode, complete 2D, complete spectral Doppler, and color Doppler. A Transthoracic Echocardiogram was performed. Scanning was performed from the parasternal, apical, subcostal, and suprasternal notch acoustic windows. Images were obtained using an [id number] cardiac ultrasound machine. Study completion: The patient tolerated the procedure well. History: PMH: Staph bacteremia. *CARDIAC ANATOMY* Left ventricle: The cavity size was normal. Wall thickness was increased in a pattern of moderate LVH. Systolic function was hyperdynamic. The estimated ejection fraction was 65-70%. Wall motion was normal; there were no regional wall motion abnormalities. Aortic valve: Normal thickness leaflets. A bioprosthesis (TAVR Wiley Shon) was present and functioning normally. Mobility was not restricted. Doppler: Transvalvular velocity was increased more than expected. There was no significant regurgitation. VTI ratio of LVOT to aortic valve: 0.46. Valve area (VTI): 1.3cm^2. Indexed valve area (VTI): 0.6cm^2/m^2. Peak velocity ratio of LVOT to aortic valve: 0.43. Valve area (Vmax): 1.2cm^2. Indexed valve area (Vmax): 0.6cm^2/m^2. Mean velocity ratio of LVOT to aortic valve: 0.45. Valve area (Vmean): 1.3cm^2. Indexed valve area (Vmean): 0.6cm^2/m^2. Mean gradient (S): 24.9mm Hg. Peak gradient (S): 43.1mm Hg. Aorta: Aortic root: The aortic root was normal in size. Mitral valve: Severely calcified annulus. Moderately thickened leaflets. Mobility was mildly restricted. Doppler: Transvalvular velocity was within the normal range. There was no evidence for stenosis. There was no significant regurgitation. Valve area by pressure half-time: 2cm^2. Indexed valve area by pressure half-time: 0.9cm^2/m^2. Peak gradient (D): 11.2mm Hg. Left atrium: The atrium was mildly dilated. Right ventricle: The cavity size was mildly dilated. Wall thickness was normal. Systolic function was normal. Pulmonic valve: Poorly visualized. Structurally normal valve. Doppler: Transvalvular velocity was within the normal range. There was no evidence for stenosis. There was no significant regurgitation. Tricuspid valve: Structurally normal valve. Doppler: Transvalvular velocity was within the normal range. There was no evidence for stenosis. There was mild regurgitation. Pulmonary artery: Poorly visualized. Pulmonary systolic pressure was mildly increased. Right atrium: The atrium was mildly dilated. Pericardium: There was no pericardial effusion. Systemic veins: Inferior vena cava: Well visualized. The vessel was patent and dilated. The respirophasic diameter changes were blunted (less than 50%), consistent with elevated central venous pressure. Baseline ECG: Paced rhythm. Measurements Left ventricle Value 05/02/2018 Reference LV ID, ED, PLAX 4.3 cm 4.4 3.5 - 6.0 LV ID, ES, PLAX 2.7 cm 2.7 2.1 - 4.0 LV PW thickness, ED, PLAX 1.4 cm 1.5 LV end-diastolic volume, 124 ml 79 1-p A2C LV ejection fraction, 1-p 61 % 64 A2C LV end-diastolic volume, 136 ml 80 1-p A4C LV ejection fraction, 1-p 67 % 65 A4C LV e', lateral 0.11 m/sec 0.036 LV E/e', lateral 15 29 LV e', medial 0.075 m/sec 0.046 LV E/e', medial 22 22 LV e', average 0.093 m/sec 0.041 LV E/e', average 18 25 Ventricular septum Value 05/02/2018 Reference IVS thickness, ED, PLAX 1.4 cm 1.4 LVOT Value 05/02/2018 Reference LVOT ID, A-P 1.9 cm 1.9 LVOT area 2.9 cm^2 2.7 LVOT peak velocity, S 1.42 m/sec 1.26 LVOT mean velocity, S 1.06 m/sec 0.94 LVOT VTI, S 26.1 cm 27.6 LVOT peak gradient, S 8 mm Hg 6.4 LVOT mean gradient, S 5.1 mm Hg 4.1 Stroke volume (SV), LVOT 74 ml 75 DP Stroke index (SV/bsa), 34 ml/m^2 35 LVOT DP Aortic valve Value 05/02/2018 Reference Aortic valve peak 3.3 m/sec 2.3 velocity, S Aortic valve mean 2.37 m/sec 1.76 velocity, S Aortic valve VTI, S 57.0 cm 49.0 Aortic mean gradient, S 24.9 mm Hg 13.6 Aortic peak gradient, S 43.1 mm Hg 22 VTI ratio, LVOT/AV 0.46 0.56 Aortic valve area, VTI 1.3 cm^2 1.5 Velocity ratio, peak, 0.43 0.54 LVOT/AV Aortic valve area, peak 1.2 cm^2 1.5 velocity Velocity ratio, mean, 0.45 0.54 LVOT/AV Aortic valve area, mean 1.3 cm^2 1.5 velocity Aortic valve area/bsa, 0.6 cm^2/m^2 0.7 mean velocity Aorta Value 05/02/2018 Reference Ascending aorta ID, A-P, S 3.4 cm 3.4 Left atrium Value 05/02/2018 Reference LA ID, A-P, ES 5.0 cm 4.5 LA ID/bsa, A-P (H) 2.3 cm/m^2 2.1 <=2.2 LA area, ES, A4C 22 cm^2 21.2 8.8 - 23.4 LA area, ES, A2C 25 cm^2 LA volume/bsa, ES, 1-p A4C 33 ml/m^2 31 LA volume, ES, 2-p 73 ml LA volume/bsa, ES, 2-p 34 ml/m^2 Mitral valve Value 05/02/2018 Reference Mitral E-wave peak 1.67 m/sec 1.03 velocity Mitral A-wave peak 0.42 m/sec 1.46 velocity Mitral deceleration time (H) 385 ms 361 150 - 230 Mitral pressure half-time 112 ms 105 Mitral peak gradient, D 11.2 mm Hg 4.3 Mitral E/A ratio, peak 4.02 0.71 Mitral valve area, PHT, DP 2 cm^2 2.1 Pulmonary arteries Value 05/02/2018 Reference PA pressure, S, DP (H) 48 mm Hg <=30 Tricuspid valve Value 05/02/2018 Reference Tricuspid regurg peak 2.9 m/sec 1.9 velocity Tricuspid peak RV-RA 33.3 mm Hg 15 gradient Right atrium Value 05/02/2018 Reference RA area, ES, A4C (H) 21.4 cm^2 22.1 8.3 - 19.5 Systemic veins Value 05/02/2018 Reference Estimated CVP 15 mm Hg Right ventricle Value 05/02/2018 Reference RV pressure, S, DP (H) 48 mm Hg <=30 Legend: (L) and (H) beba values outside specified reference range. I have personally reviewed the images and have reviewed and edited the reported findings. Electronically signed by Minerva Russo 05/08/2018 17:34
[2018-05-08] MEDS: Fluticasone NASAL SPRAY 16 GM BTL NS (09:36)
[2018-05-08 09:39] LABS: PTT Activated 28.5 sec (21.0-31.4)
[2018-05-08] MEDS: Aspirin E.C. 81 MG TABEC PO (10:28)
[2018-05-08 10:52] LABS: Influenza A RNA Result Negative (Negative); Influenza B RNA Result Negative (Negative); RSV RNA Result Negative (Negative); Specimen Description NASOPHARYNGEAL
--- NOTE | 2018-05-08 12:02 | W.PM.PROGNOT ---
Date of Service Date of service: 05/08/18 Time of Service: 12:02 Assessment and Plan (1) Sepsis: Current visit: Yes Status: Acute Acute onset of fever, with concurrently elevated Lactic Acid, hypotension, Tachycardia, and altered mental status - with Staph Aureus Bacteremia. Urinalysis, Flu swab, CXR, and CT a/p all checked and without etiology. Right hand as possible portal of entry at site of prior IV - no evidence of abscess. 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 Given cultures results he was changed initially to Vancomycin only, now to Cafazolin for coverage of MSSA. Discontinue Oseltamivir but will await influenza PCR as well. ECHO performed with results pending. Await repeat blood cultures. Plan on discussion with ID as patient has an AICD in place and is s/p TAVR - regardless of ECHO results may warrant 6 weeks of antibiotics. (2) MSSA bacteremia: Current visit: Yes Status: Acute Treatment as above. Currently on day #1 of Cefazolin. (3) Fever: Current visit: Yes Status: Acute In setting of MSSA bacteremia. (4) Acute kidney injury superimposed on chronic kidney disease: Current visit: Yes Status: Acute Symptoms at time of admission likely secondary to dehydration and hypotension. Creatinine currently at baseline. Continue to monitor as patient is undergoing diuresis. Continue to hold LAURA-I and Spironolactone and monitor. (5) Hypertension: Current visit: No Status: Chronic Continue to hold Spironolactone as well as oral Lasix, and hold previously reinitiated CCB, BB, and LAURA?I. Continue lasix gtt and monitor weight and renal function carefully. (6) CAD (coronary artery disease): Current visit: Yes Status: Chronic With reported STEMI wt cardiac arrest 12/2017 - s/p AICD. Serial Cardiac Biomarkers negative at time of admission. Continue ASA, statin, with BB on hold as above. Also on Fenofibrate. Patient with minimal troponin spill in setting of sepsis, hypotension, fevers, and Acute on CKD with poor clearance. Values trended out to unchanged, and minimally elevated only. Very likely demand ischemia. Repeat ECHO pending. (7) CHF (congestive heart failure): Current visit: Yes Status: Chronic ICMP with reported LVEF 40%, now with normalized ejection fraction. Continue aspirin and statin therapy. Also on LAURA-I, Spironolactone, and BB (being held). Continue lasix gtt in setting of volume overload following fluid resuscitation. Repeat ECHO ordered overnight and pending. (8) Diabetes mellitus, type II: Current visit: No Status: Chronic Continue basal insulin and Glipizide. Also on sliding scale coverage. Continue to hold Metformin. (9) Chronic pain disorder: Current visit: No Status: Chronic Continue home Oxycodone. (10) Chronic obstructive pulmonary disease: Current visit: No Status: Chronic (11) Nausea & vomiting: Current visit: Yes Status: Acute In setting of acute illness. CT a/p negative. Continue anti-emetics and monitor symptoms. Antibiotics/antiviral therapy as above. (12) DVT prophylaxis: Current visit: Yes Status: Acute SC Heparin. (13) Advance directive on file: Current visit: Yes Status: Acute DNR/DNI Subjective Interval history since last seen: 73 year old man with a prior history CHF, admitted from [facility] Emergency Department on 05/02 with a diagnosis of hypotension and DONTAE. Mr. Pittman has a past medical history significant for CAD, with a cardiac arrest 12/2017 due to an [place], for which he was treated at [facility] with cardiac catheterization. He also is s/p AICD, with a history of CHF with LVEF of reportedly 40% on Echocardiogram at [facility] but with normalized Ejection Fraction by repeat ECHO here without wall motion abnormalities. The patient also has a history of , with note of a bioprosthetic valve by his current ECHO, DM with peripheral neuropathy, ANNABELLE, dyslipidemia, HTN, CKD, chronic pain, and COPD. Other history includes ARDS in setting of infection with influenza at which time he required intubation and mechanical ventilation at [facility]. The patient presented to the ED with the sensation that he was going to have recurrent myocardial infarction. He denied chest pain, but reported dizziness and feeling unwell overall. Following transport to the hospital via EMS he was noted to be significantly hypotensive, with a SBP in the 70s and 80s prior to receiving IV Fluids. His serial troponins were negative and EKG reportedly unchanged. The patient was found to have evidence of DONTAE, found likely in the setting of overdiuresis, hypotensive, and dehydrated. The patient's original symptoms had essentially abated, his creatinine remained at baseline, and his blood pressure had become hypertensive. However, he went on to develop nausea, vomiting, and dizzeness. Subsequently Mr. Pittman became febrile and experienced rigorslactate was checked and elevated. Subsequent work-up including flu swab, CXR, Urinalysis, and CT of the abdomen and pelvis were all negative. Blood Cultures were obtained and returned positive for Staph Aureus, MSSA by sensitivity results today. Only sources appears to be at the IV site he received in the field by EMS on his right hand, which is minimally erythematous but not cellulitic and without evidence of purulent drainage. He was moved to the ICU overnight due to hypotension, and required a short course of pressor therapy. Due to initial need for volume and fluid resuscitation he became fluid overloaded overnight, necessitating lasix drip. This morning he appears improved. Patient has been afebrile since 7 pm last night. Exam Narrative Exam Narrative: General: Patient appears less ill and now improved. Remains at baseline mental status. HEENT: Neck supple. Dry Mucous Membranes. CV: Regular, no longer tachycardic, S1S2, No rubs, murmurs, or gallops. Pulmonary: Bibasilar crackles Abdomen: + Bowel Sounds, soft, nontender, nondistended Vascular: Mild b/l lower extremity edema Psych: Normal mood and affect. Objective Objective Clinical Data: Abnormal lab results 05/07/18 05/07/18 05/08/18 Range/Units 22:10 23:36 01:10 RBC (4.50-6.00) m/cumm Hgb (13.5-17.5) g/dL Hct (40.0-50.0) % RDW (11.8-14.1) % Plt Count (130-400) x1000/uL Absolute Lymphocytes (1.2-3.4) k/cumm Anion Gap (3-11) mmol/L Creatinine (0.70-1.30) mg/dL Glucose (70-100) mg/dL Calcium (8.5-10.1) mg/dL Troponin I 0.34 H* 0.33 H* (0.00-0.06) ng/mL NT-Pro-B Natriuret Pep 7642 H ( - 299) pg/mL 03/05/08/18 05/08/18 Range/Units 05:13 05:13 05:13 RBC 3.72 L (4.50-6.00) m/cumm Hgb 11.1 L (13.5-17.5) g/dL Hct 32.3 L (40.0-50.0) % RDW 16.2 H (11.8-14.1) % Plt Count 110 L (130-400) x1000/uL Absolute Lymphocytes 0.32 L (1.2-3.4) k/cumm Anion Gap 11.8 H (3-11) mmol/L Creatinine 1.41 H (0.70-1.30) mg/dL Glucose 113 H (70-100) mg/dL Calcium 8.2 L (8.5-10.1) mg/dL Troponin I 0.36 H* (0.00-0.06) ng/mL NT-Pro-B Natriuret Pep ( - 299) pg/mL Vital Signs Temperature 36.5 C 05/08/18 03:15 Temperature Source Tympanic 05/08/18 03:15 Pulse 61 05/08/18 08:01 Pulse Rhythm Regular 05/06/18 16:00 Pulse 60 05/08/18 08:30 Respiratory Rate 19 05/08/18 08:30 Respiratory Effort Incrsd Work of Breathing 05/08/18 03:15 Respiratory Depth Shallow 05/08/18 03:15 Respiratory Pattern Tachypnea 05/08/18 03:15 Blood Pressure 119/72 05/08/18 08:01 Blood Pressure Mean 83 05/08/18 08:01 Blood Pressure Position Sitting 05/02/18 10:18 Pulse Oximetry 95 05/08/18 08:20 Oxygen Delivery Method Hi Flow Nasal Cannula 05/07/18 09:56 Oxygen Flow Rate 50 05/07/18 09:56 Fraction of Inspired Oxygen (FIO2) 30 05/07/18 09:56 Pain Level 0 05/07/18 23:10 Comment 05/07/18 16:39 Intake & Output 05/07/18 05/08/18 05/08/18 23:59 11:59 23:59 Intake Total 1236 / 3764.374 300 / 300 Output Total 500 / 1575 4350 / 4350 Balance 736 / 2189.374 -4050 / -4050 Weight 98.2 kg Intake: IV 1000 / 3278.374 Oral 236 / 486 300 / 300 Output: Urine 500 / 1575 4350 / 4350 Other: Urine Color Yellow Pale Straw Urine Appearance Cloudy Clear Urine Odor Normal Comment pt voiding to commode. Low urine output as of this time. MD was made aware. Pt voiding several times to commode. Voiding Methods Bedside Commode Bedside Commode Laboratory Results WBC 5.66 k/cumm (4.4-10.8) 05/08/18 05:13 RBC 3.72 m/cumm (4.50-6.00) L 05/08/18 05:13 Hgb 11.1 g/dL (13.5-17.5) L 05/08/18 05:13 Hct 32.3 % (40.0-50.0) L 05/08/18 05:13 MCV 86.8 fL (80-95) 05/08/18 05:13 MCH 29.8 pg (27.0-33.0) 05/08/18 05:13 MCHC 34.4 g/dL (32.0-36.0) 05/08/18 05:13 RDW 16.2 % (11.8-14.1) H 05/08/18 05:13 Plt Count 110 x1000/uL (130-400) L 05/08/18 05:13 MPV 9.6 fL (8.0-11.0) 05/08/18 05:13 Immature Gran % 0.4 05/08/18 05:13 Neutrophils % 85.9 05/08/18 05:13 Lymphocytes % 5.7 05/08/18 05:13 Monocytes % 6.7 05/08/18 05:13 Eosinophils % 1.1 05/08/18 05:13 Basophils % 0.2 05/08/18 05:13 Absolute Neutrophils 4.87 k/cumm (1.2-6.7) 05/08/18 05:13 Absolute Lymphocytes 0.32 k/cumm (1.2-3.4) L 05/08/18 05:13 Absolute Monocytes 0.38 k/cumm (0.11-0.7) 05/08/18 05:13 Absolute Eosinophils 0.06 k/cumm (0.0-0.7) 05/08/18 05:13 Absolute Basophils 0.01 k/cumm (0.0-0.2) 05/08/18 05:13 PT 11.9 sec (9.3-11.0) H 05/02/18 10:35 INR 1.2 (0.9-1.1) H 05/02/18 10:35 APTT 28.5 sec (21.0-31.4) 05/08/18 09:15 Sodium 137 mmol/L (136-145) 05/08/18 05:13 Potassium 3.7 mmol/L (3.5-5.1) 05/08/18 05:13 Chloride 104 mmol/L (98-107) 05/08/18 05:13 Carbon Dioxide 21.2 mmol/L (21.0-32.0) 05/08/18 05:13 Anion Gap 11.8 mmol/L (3-11) H 05/08/18 05:13 BUN 18 mg/dL (7-18) 05/08/18 05:13 Creatinine 1.41 mg/dL (0.70-1.30) H 05/08/18 05:13 Estimated GFR/1.73 m2 49.27 (mL/min/1.73m2) 05/08/18 05:13 Glucose 113 mg/dL (70-100) H 05/08/18 05:13 Lactate 1.1 mmol/l (0.6-1.4) 05/07/18 23:36 Calcium 8.2 mg/dL (8.5-10.1) L 05/08/18 05:13 Magnesium 2.1 mg/dL (1.8-2.4) 05/08/18 05:13 Total Bilirubin 0.3 mg/dL (0.2-1.0) 05/02/18 10:35 AST 21 U/L (15-37) 05/02/18 10:35 ALT 27 U/L (12-78) 05/02/18 10:35 Alkaline Phosphatase 32 U/L (46-116) L 05/02/18 10:35 Troponin I 0.36 ng/mL (0.00-0.06) H* 05/08/18 05:13 Total Protein 7.1 g/dL (6.4-8.2) 03/15/19 10:35 NT-Pro-B Natriuret Pep 7642 pg/mL (-299) H 05/07/18 23:36 Albumin 3.9 g/dL (3.4-5.0) 05/02/18 10:35 Urine Color Yellow (Yellow) 05/05/18 15:30 Urine Clarity Clear 05/05/18 15:30 Urine pH 7.0 (5-8) 05/05/18 15:30 Ur Specific [place] 1.015 (1.005-1.025) 05/05/18 15:30 Urine Protein Negative mg/dL (Negative) 05/05/18 15:30 Urine Ketones Negative mg/dL (Negative) 05/05/18 15:30 Urine Blood Negative (Negative) 05/05/18 15:30 Urine Nitrite Negative (Negative) 05/05/18 15:30 Urine Bilirubin Negative (Negative) 05/05/18 15:30 Urine Urobilinogen 0.2 EU/dL (Up TO 0.2) 05/05/18 15:30 Ur Leukocyte Esterase Negative (Negative) 05/05/18 15:30 Urine Glucose 100 mg/dL (Negative) 05/05/18 15:30
--- NOTE | 2018-05-08 12:05 | PGE_ITS ---
Date of Service Date of service: 05/08/18 Time of Service: 12:02 Assessment and Plan (1) Sepsis: Current visit: Yes Status: Acute Acute onset of fever, with concurrently elevated Lactic Acid, hypotension, Tachycardia, and altered mental status - with Staph Aureus Bacteremia. Urinalysis, Flu swab, CXR, and CT a/p all checked and without etiology. Right hand as possible portal of entry at site of prior IV - no evidence of abscess. 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 Given cultures results he was changed initially to Vancomycin only, now to Cafazolin for coverage of MSSA. Discontinue Oseltamivir but will await influenza PCR as well. ECHO performed with results pending. Await repeat blood cultures. Plan on discussion with ID as patient has an AICD in place and is s/p TAVR - regardless of ECHO results may warrant 6 weeks of antibiotics. (2) MSSA bacteremia: Current visit: Yes Status: Acute Treatment as above. Currently on day #1 of Cefazolin. (3) Fever: Current visit: Yes Status: Acute In setting of MSSA bacteremia. (4) Acute kidney injury superimposed on chronic kidney disease: Current visit: Yes Status: Acute Symptoms at time of admission likely secondary to dehydration and hypotension. Creatinine currently at baseline. Continue to monitor as patient is undergoing diuresis. Continue to hold LAURA-I and Spironolactone and monitor. (5) Hypertension: Current visit: No Status: Chronic Continue to hold Spironolactone as well as oral Lasix, and hold previously reinitiated CCB, BB, and LAURA?I. Continue lasix gtt and monitor weight and renal function carefully. (6) CAD (coronary artery disease): Current visit: Yes Status: Chronic With reported STEMI wt cardiac arrest 12/2017 - s/p AICD. Serial Cardiac Biomarkers negative at time of admission. Continue ASA, statin, with BB on hold as above. Also on Fenofibrate. Patient with minimal troponin spill in setting of sepsis, hypotension, fevers, and Acute on CKD with poor clearance. Values trended out to unchanged, and minimally elevated only. Very likely demand ischemia. Repeat ECHO pending. (7) CHF (congestive heart failure): Current visit: Yes Status: Chronic ICMP with reported LVEF 40%, now with normalized ejection fraction. Continue aspirin and statin therapy. Also on LAURA-I, Spironolactone, and BB (being held). Continue lasix gtt in setting of volume overload following fluid resuscitation. Repeat ECHO ordered overnight and pending. (8) Diabetes mellitus, type II: Current visit: No Status: Chronic Continue basal insulin and Glipizide. Also on sliding scale coverage. Continue to hold Metformin. (9) Chronic pain disorder: Current visit: No Status: Chronic Continue home Oxycodone. (10) Chronic obstructive pulmonary disease: Current visit: No Status: Chronic (11) Nausea & vomiting: Current visit: Yes Status: Acute In setting of acute illness. CT a/p negative. Continue anti-emetics and monitor symptoms. Antibiotics/antiviral therapy as above. (12) DVT prophylaxis: Current visit: Yes Status: Acute SC Heparin. (13) Advance directive on file: Current visit: Yes Status: Acute DNR/DNI Subjective Interval history since last seen: 73 year old man with a prior history CHF, admitted from [facility] Emergency Department on 05/02 with a diagnosis of hypotension and DONTAE. Mr. Pittman has a past medical history significant for CAD, with a cardiac arrest 12/2017 due to an [place], for which he was treated at [facility] [place] with cardiac catheterization. He also is s/p AICD, with a history of CHF with LVEF of repo rtedly 40% on Echocardiogram at [facility] but with normalized Ejection Fraction by repeat ECHO here without wall motion abnormalities. The patient also has a history of , with note of a bioprosthetic valve by his current ECHO, DM with peripheral neuropathy, ANNABELLE, dyslipidemia, HTN, CKD, chronic pain, and COPD. Other history includes ARDS in setting of infection with influenza at which time he required intubation and mechanical ventilation at [facility]. The patient presented to the ED with the sensation that he was going to have recurrent myocardial infarction. He denied chest pain, but reported dizziness and feeling unwell overall. Following transport to the hospital via EMS he was noted to be significantly hypotensive, with a SBP in the 70s and 80s prior to receiving IV Fluids. His serial troponins were negative and EKG reportedly unchanged. The patient was found to have evidence of DONTAE, found likely in the setting of overdiuresis, hypotensive, and dehydrated. The patient's original symptoms had essentially abated, his creatinine remained at baseline, and his blood pressure had become hypertensive. However, he went on to develop nausea, vomiting, and dizzeness. Subsequently Mr. Pittman became febrile and experienced rigorslactate was checked and elevated. Subsequent work- up including flu swab, CXR, Urinalysis, and CT of the abdomen and pelvis were all negative. Blood Cultures were obtained and returned positive for Staph Aureus, MSSA by sensitivity results today. Only sources appears to be at the IV site he received in the field by EMS on his right hand, which is minimally erythematous but not cellulitic and without evidence of purulent drainage. He was moved to the ICU overnight due to hypotension, and required a short course of pressor therapy. Due to initial need for volume and fluid resuscitation he became fluid overloaded overnight, necessitating lasix drip. This morning he appears improved. Patient has been afebrile since 7 pm last night. Exam Narrative Exam Narrative: General: Patient appears less ill and now improved. Remains at baseline mental status. HEENT: Neck supple. Dry Mucous Membranes. CV: Regular, no longer tachycardic, S1S2, No rubs, murmurs, or gallops. Pulmonary: Bibasilar crackles Abdomen: + Bowel Sounds, soft, nontender, nondistended Vascular: Mild b/l lower extremity edema Psych: Normal mood and affect. Objective Objective Clinical Data: Abnormal lab results 05/07/18 05/07/18 05/08/18 Range/Units 22:10 23:36 01:10 RBC (4.50-6.00) m/cumm Hgb (13.5-17.5) g/dL Hct (40.0-50.0) % RDW (11.8-14.1) % Plt Count (130-400) x1000/uL Absolute Lymphocytes (1.2-3.4) k/cumm Anion Gap (3-11) mmol/L Creatinine (0.70-1.30) mg/dL Glucose (70-100) mg/dL Calcium (8.5-10.1) mg/dL Troponin I 0.34 H* 0.33 H* (0.00-0.06) ng/mL NT-Pro-B Natriuret Pep 7642 H ( - 299) pg/mL 05/08/18 05/08/18 05/08/18 Range/Units 05:13 05:13 05:13 RBC 3.72 L (4.50-6.00) m/cumm Hgb 11.1 L (13.5-17.5) g/dL Hct 32.3 L (40.0-50.0) % RDW 16.2 H (11.8-14.1) % Plt Count 110 L (130-400) x1000/uL Absolute Lymphocytes 0.32 L (1.2-3.4) k/cumm Anion Gap 11.8 H (3-11) mmol/L Creatinine 1.41 H (0.70-1.30) mg/dL Glucose 113 H (70-100) mg/dL Calcium 8.2 L (8.5-10.1) mg/dL Troponin I 0.36 H* (0.00-0.06) ng/mL NT-Pro-B Natriuret Pep ( - 299) pg/mL Vital Signs Temperature 36.5 C 05/08/18 03:15 Temperature Source Tympanic 05/08/18 03:15 Pulse 61 05/08/18 08:01 Pulse Rhythm Regular 05/06/18 16:00 Pulse 60 05/08/18 08:30 Respiratory Rate 19 05/08/18 08:30 Respiratory Effort Incrsd Work of Breathing 05/08/18 03:15 Respiratory Depth Shallow 05/08/18 03:15 Respiratory Pattern Tachypnea 05/08/18 03:15 Blood Pressure 119/72 05/08/18 08:01 Blood Pressure Mean 83 05/08/18 08:01 Blood Pressure Position Sitting 05/02/18 10:18 Pulse Oximetry 95 05/08/18 08:20 Oxygen Delivery Method Hi Flow Nasal Cannula 05/07/18 09:56 Oxygen Flow Rate 50 05/07/18 09:56 Fraction of Inspired Oxygen (FIO2) 30 05/07/18 09:56 Pain Level 0 05/07/18 23:10 Comment 05/07/18 16:39 Intake & Output 05/07/18 05/08/18 05/08/18 23:59 11:59 23:59 Intake Total 1236 / 3764.374 300 / 300 Output Total 500 / 1575 4350 / 4350 Balance 736 / 2189.374 -4050 / -4050 Weight 98.2 kg Intake: IV 1000 / 3278.374 Oral 236 / 486 300 / 300 Output: Urine 500 / 1575 4350 / 4350 Other: Urine Color Yellow Pale Straw Urine Appearance Cloudy Clear Urine Odor Normal Comment pt voiding to commode. Low urine output as of this time. MD was made aware. Pt voiding several times to commode. Voiding Methods Bedside Commode Bedside Commode Laboratory Results WBC 5.66 k/cumm (4.4-10.8) 05/08/18 05:13 RBC 3.72 m/cumm (4.50-6.00) L 05/08/18 05:13 Hgb 11.1 g/dL (13.5-17.5) L 05/08/18 05:13 Hct 32.3 % (40.0-50.0) L 05/08/18 05:13 MCV 86.8 fL (80-95) 05/08/18 05:13 MCH 29.8 pg (27.0-33.0) 05/08/18 05:13 MCHC 34.4 g/dL (32.0-36.0) 05/08/18 05:13 RDW 16.2 % (11.8-14.1) H 05/08/18 05:13 Plt Count 110 x1000/uL (130-400) L 05/08/18 05:13 MPV 9.6 fL (8.0-11.0) 05/08/18 05:13 Immature Gran % 0.4 05/08/18 05:13 Neutrophils % 85.9 05/08/18 05:13 Lymphocytes % 5.7 05/08/18 05:13 Monocytes % 6.7 05/08/18 05:13 Eosinophils % 1.1 05/08/18 05:13 Basophils % 0.2 05/08/18 05:13 Absolute Neutrophils 4.87 k/cumm (1.2-6.7) 05/08/18 05:13 Absolute Lymphocytes 0.32 k/cumm (1.2-3.4) L 05/08/18 05:13 Absolute Monocytes 0.38 k/cumm (0.11-0.7) 05/08/18 05:13 Absolute Eosinophils 0.06 k/cumm (0.0-0.7) 05/08/18 05:13 Absolute Basophils 0.01 k/cumm (0.0-0.2) 05/08/18 05:13 PT 11.9 sec (9.3-11.0) H 05/02/18 10:35 INR 1.2 (0.9-1.1) H 05/02/18 10:35 APTT 28.5 sec (21.0-31.4) 05/08/18 09:15 Sodium 137 mmol/L (136-145) 05/08/18 05:13 Potassium 3.7 mmol/L (3.5-5.1) 05/08/18 05:13 Chloride 104 mmol/L (98-107) 05/08/18 05:13 Carbon Dioxide 21.2 mmol/L (21.0-32.0) 05/08/18 05:13 Anion Gap 11.8 mmol/L (3-11) H 05/08/18 05:13 BUN 18 mg/dL (7-18) 05/08/18 05:13 Creatinine 1.41 mg/dL (0.70-1.30) H 05/08/18 05:13 Estimated GFR/1.73 m2 49.27 (mL/min/1.73m2) 05/08/18 05:13 Glucose 113 mg/dL (70-100) H 05/08/18 05:13 Lactate 1.1 mmol/l (0.6-1.4) 05/07/18 23:36 Calcium 8.2 mg/dL (8.5-10.1) L 05/08/18 05:13 Magnesium 2.1 mg/dL (1.8-2.4) 05/08/18 05:13 Total Bilirubin 0.3 mg/dL (0.2-1.0) 05/02/18 10:35 AST 21 U/L (15-37) 05/02/18 10:35 ALT 27 U/L (12-78) 05/02/18 10:35 Alkaline Phosphatase 32 U/L (46-116) L 05/02/18 10:35 Troponin I 0.36 ng/mL (0.00-0.06) H* 05/08/18 05:13 Total Protein 7.1 g/dL (6.4-8.2) 05/02/18 10:35 NT-Pro-B Natriuret Pep 7642 pg/mL (-299) H 05/07/18 23:36 Albumin 3.9 g/dL (3.4-5.0) 05/02/18 10:35 Urine Color Yellow (Yellow) 05/05/18 15:30 Urine Clarity Clear 05/05/18 15:30 Urine pH 7.0 (5-8) 05/05/18 15:30 Ur Specific [place] 1.015 (1.005-1.025) 05/05/18 15:30 Urine Protein Negative mg/dL (Negative) 05/05/18 15:30 Urine Ketones Negative mg/dL (Negative) 05/05/18 15:30 Urine Blood Negative (Negative) 05/05/18 15:30 Urine Nitrite Negative (Negative) 05/05/18 15:30 Urine Bilirubin Negative (Negative) 05/05/18 15:30 Urine Urobilinogen 0.2 EU/dL (Up TO 0.2) 05/05/18 15:30 Ur Leukocyte Esterase Negative (Negative) 05/05/18 15:30 Urine Glucose 100 mg/dL (Negative) 05/05/18 15:30
[2018-05-08 13:42] LABS: Troponin I 0.26 ng/mL (0.00-0.06)
--- NOTE | 2018-05-08 14:09 | PDOC.CMPRO ---
- If Service Date Differs Date of service: 05/08/18 Time of Service: 14:09 Care Management Progress Note S/O: Kam is lying in bed in the ICU this morning. He continues to require ICU level of care at this time. Kam is scheduled for an Echo today. He has a Lasix and heparin drip at this time, and is also requiring IV antibiotics. No change in DC plan at this time. A: 73 y/o male admitted 05/02/18 for acute renal insufficiency P: Kam will return home once medically cleared with no anticipated services. He will F/U with PCP and plan of care as prescribed. His [facility] will transport when ready.
[2018-05-08] MEDS: Metoprolol 12.5 MG TAB PO ×2 (14:14→21:26)
[2018-05-08] MEDS: Acetaminophen 325 MG TAB PO ×2 (16:32→21:26)
[2018-05-08] MEDS: Heparin 5,000 UNITS/ML VIAL 5000 UNITS SC (16:36)
[2018-05-08] MEDS: Pantoprazole 40 MG VIAL IVP (16:36)
[2018-05-08] MEDS: Mirtazapine 15 MG TAB PO (21:25)
[2018-05-08] MEDS: oxyCODONE 10 MG TAB PO (21:26)
[2018-05-08] MEDS: Docusate Sodium 100 MG CAP PO (21:26)
[2018-05-09] VITALS (45 sets, daily range): BP systolic 113–164; BP diastolic 54–123; PULSE 59–63; RESP 11–30; TEMP 36.5–37.6; O2SAT 88–96
[2018-05-09] MEDS: Heparin 5,000 UNITS/ML VIAL 5000 UNITS SC ×3 (00:35→17:28)
[2018-05-09] MEDS: Metoprolol 12.5 MG TAB PO (06:58)
[2018-05-09 07:30] LABS: Abs Immature Grans 0.01 k/cumm (0.0-0.09); Absolute Basophil Count 0.01 k/cumm (0.0-0.2); Absolute Eosinophil Count 0.14 k/cumm (0.0-0.7); Absolute Lymphocyte Count 0.89 k/cumm (1.2-3.4); Absolute Monocyte Count 0.42 k/cumm (0.11-0.7); Absolute Neutrophil Count 3.86 k/cumm (1.2-6.7); Basophils % 0.2; Eosinophils % 2.6; HCT 28.7 % (40.0-50.0); HGB 9.9 g/dL (13.5-17.5); Immature Grans % 0.2; Lymphocytes % 16.7; Mean Corp. HGB Concentration 34.5 g/dL (32.0-36.0); Mean Corpuscular Hemoglobin 29.6 pg (27.0-33.0); Mean Corpuscular Volume 85.9 fL (80-95); Mean Platelet Volume 9.8 fL (8.0-11.0); Monocytes % 7.9; Neutrophils % 72.4; Platelet Count 120 x1000/uL (130-400); RBC 3.34 m/cumm (4.50-6.00); RBC Distribution Width 16.1 % (11.8-14.1); White Blood Cell Count 5.33 k/cumm (4.4-10.8)
[2018-05-09 07:37] LABS: Anion Gap 9.8 mmol/L (3-11); BUN 21 mg/dL (7-18); CO2 22.2 mmol/L (21.0-32.0); CREATININE 1.48 mg/dL (0.70-1.30); Calcium 8.1 mg/dL (8.5-10.1); Chloride 104 mmol/L (98-107); Estimated GFR 46.59 (mL/min/1.73m2); Glucose 79 mg/dL (70-100); Magnesium 2.2 mg/dL (1.8-2.4); Potassium 3.2 mmol/L (3.5-5.1); Sodium 136 mmol/L (136-145)
[2018-05-09] MEDS: Normal Saline Flush 10 ML SYR IVP ×3 (08:03→17:29)
--- NOTE | 2018-05-09 08:42 | PDOC.CMPRO ---
Care Management Progress Note S/O: Kam was lying in bed when CM met with him. He discussed his extended hospitalization and reported having another at [facility] previously as well. He shared that he has had a few meltdowns because of struggling with his care needs, requiring MD conference interpreter to see him at [facility] twice this admission. He states he feels weaker and does not feel confident he could get out of bed and walk. CM requested PT/OT and Palliative Care consults from provider for when Kam is ready. Kam reports living alone and shares worries about returning home. He states it will take him some time to re-organize his home for home services to enter. He states feeling comfortable with his current care and shares the service is fantastic. He does state he is missing having ice cream and would really like an ice cream cone but states they won't let my family bring me one. PONCHO shared this information with Erin Bee who stated she would see what could be done. Kam also stated that he lives a very structured life, wakes up at 0500, goes to the bathroom and has his coffee by 0530. He reports struggling with losing the predictability of his schedule while hospitalized. Kam remains on a Lasix and heparin drip at this time, and is also requiring IV antibiotics; changed to Cefazolin for coverage of MSSA and continued Vanco. MD to consult with [facility] ID and per report is questioning requirement of six weeks of IV ABX. Kam reports limited supports in the area, he states most of his family resides in [facility], where he is from [facility]. He states he moved to [place] eleven years ago to care for his aging parents. A: 73 y/o male admitted 05/02/18 for acute renal insufficiency P: Kam will continue to be closely monitored with Sepsis-MSSA bacteremia, DONTAE with chronic kidney disease, CAD and CHF as well as DM and COPD. He remains in the ICU at ICU level of care at this time. PONCHO will continue to follow, anticipate his significant other Mine will transport when ready.
--- NOTE | 2018-05-09 08:48 | CMPROGNOTE_ITS ---
Care Management Progress Note S/O: Kam was lying in bed when CM met with him. He discussed his extended hospitalization and reported having another at [facility] previously as well. He shared that he has had a few meltdowns because of struggling with his care needs, requiring MD solar fabrication technician to see him at [facility] twice this admission. He states he feels weaker and does not feel confident he could get out of bed and walk. CM requested PT/OT and Palliative Care consults from provider for when Kam is ready. Kam reports living alone and shares worries about returning home. He states it will take him some time to re-organize his home for home services to enter. He states feeling comfortable with his current care and shares the service is fantastic. He does state he is missing having ice cream and would really like an ice cream cone but states they won't let my family bring me one. PONCHO shared this information with Erin Bee who stated she would see what could be done. Kam also stated that he lives a very structured life, wakes up at 0500, goes to the bathroom and has his coffee by 0530. He reports struggling with losing the predictability of his schedule while hospitalized. Kam remains on a Lasix and heparin drip at this time, and is also requiring IV antibiotics; changed to Cefazolin for coverage of MSSA and continued Vanco. MD to consult with [facility] ID and per report is questioning requirement of six weeks of IV ABX. Kam reports limited supports in the area, he states most of his family resides in [facility], where he is from [facility]. He states he moved to [place] eleven years ago to care for his aging parents. A: 73 y/o male admitted 05/02/18 for acute renal insufficiency P: Kam will continue to be closely monitored with Sepsis-MSSA bacteremia, DONTAE with chronic kidney disease, CAD and CHF as well as DM and COPD. He remains in the ICU at ICU level of care at this time. PONCHO will continue to follow, anticipate his significant other Mine will transport when ready.
[2018-05-09] MEDS: Fluticasone-Umeclidin-Vilanter [Trelegy Ellipta] IH (09:29)
[2018-05-09] MEDS: glipiZIDE 5 MG TAB PO (09:55)
[2018-05-09] MEDS: Aspirin E.C. 81 MG TABEC PO (09:56)
[2018-05-09] MEDS: Atorvastatin 20 MG TAB 60 MG PO (09:56)
[2018-05-09] MEDS: Magnesium Oxide 400 MG TAB PO ×2 (09:57→21:32)
[2018-05-09] MEDS: Fenofibrate, Micronized 145 MG TAB PO (09:57)
[2018-05-09] MEDS: Fluticasone NASAL SPRAY 16 GM BTL NS (09:59)
[2018-05-09] MEDS: Potassium Chloride 20 MEQ TABCR 40 MEQ PO ×2 (10:01→17:00)
[2018-05-09] MEDS: Docusate Sodium 100 MG CAP PO (10:49)
--- NOTE | 2018-05-09 11:42 | W.PM.PROGNOT ---
Date of Service Date of service: 05/09/18 Time of Service: 11:42 Assessment and Plan (1) Sepsis: Current visit: Yes Status: Acute MSSA Bacteremia. Urinalysis, Flu swab, CXR, and CT a/p all checked and without etiology. Right hand as possible portal of entry at site of prior IV - no evidence of abscess. Continue Cafazolin, day #2. TTE without evidence for Endocarditis. 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 Will attempt to discuss with cardiology today, and schedule for a CASSI first available. (2) MSSA bacteremia: Current visit: No Status: Acute Treatment as above. Currently on day #2 of Cefazolin. Repeat Blood Cultures again tomorrow morning. (3) Fever: Current visit: Yes Status: Acute In setting of MSSA bacteremia. (4) Acute kidney injury superimposed on chronic kidney disease: Current visit: Yes Status: Acute Symptoms at time of admission likely secondary to dehydration and hypotension. Creatinine currently at baseline. Continue to monitor as patient is undergoing diuresis. Continue to hold LAURA-I and Spironolactone and monitor. (5) Hypertension: Current visit: No Status: Chronic Continue to hold Spironolactone as well as oral Lasix, and hold previously reinitiated CCB and LAURA?I. Resume home dose of Carvedilol. Continue lasix gtt and monitor weight and renal function carefully. (6) CAD (coronary artery disease): Current visit: Yes Status: Chronic With reported STEMI wt cardiac arrest 12/2017 - s/p AICD. Serial Cardiac Biomarkers negative at time of admission. Continue ASA, statin, with BB on hold as above. Also on Fenofibrate. Patient with minimal troponin spill in setting of sepsis, hypotension, fevers, and Acute on CKD with poor clearance. Values trended out and decreased, and minimally elevated only. Very likely demand ischemia. Repeat ECHO with unchanged LVEF and no wall motion abnormality. (7) CHF (congestive heart failure): Current visit: Yes Status: Chronic ICMP with reported LVEF 40%, now with normalized ejection fraction. Continue aspirin and statin therapy. Also on LAURA-I, Spironolactone (being held). Continue lasix gtt in setting of volume overload following fluid resuscitation, and reinitiate home BB regimen. Repeat ECHO essentially unchanged. (8) Diabetes mellitus, type II: Current visit: No Status: Chronic Continue basal insulin and Glipizide. Also on sliding scale coverage. Continue to hold Metformin. (9) Chronic pain disorder: Current visit: No Status: Chronic Continue home Oxycodone. (10) Chronic obstructive pulmonary disease: Current visit: No Status: Chronic (11) Nausea & vomiting: Current visit: Yes Status: Acute In setting of acute illness. CT a/p negative. Appears resolved. Continue to treat infection as above. (12) DVT prophylaxis: Current visit: Yes Status: Acute SC Heparin. (13) Advance directive on file: Current visit: Yes Status: Acute DNR/DNI Subjective Interval history since last seen: 73 year old man with a prior history CHF, admitted from [facility] Emergency Department on 05/02 with a diagnosis of hypotension and DONTAE. Mr. Pittman has a past medical history significant for CAD, with a cardiac arrest 12/2017 due to an MN, for which he was treated at [facility] with cardiac catheterization. He also is s/p AICD, with a history of CHF with LVEF of reportedly 40% on Echocardiogram at [facility] but with normalized Ejection Fraction by repeat ECHO here without wall motion abnormalities. The patient also has a history of , with note of a bioprosthetic valve by his current ECHO, DM with peripheral neuropathy, ANNABELLE, dyslipidemia, HTN, CKD, chronic pain, and COPD. Other history includes ARDS in setting of infection with influenza at which time he required intubation and mechanical ventilation at [facility]. The patient presented to the ED with the sensation that he was going to have recurrent myocardial infarction. He denied chest pain, but reported dizziness and feeling unwell overall. Following transport to the hospital via EMS he was noted to be significantly hypotensive, with a SBP in the 70s and 80s prior to receiving IV Fluids. His serial troponins were negative and EKG reportedly unchanged. The patient was found to have evidence of DONTAE, found likely in the setting of overdiuresis, hypotensive, and dehydrated. The patient's original symptoms had essentially abated, his creatinine remained at baseline, and his blood pressure had become hypertensive. However, he went on to develop nausea, vomiting, and dizzeness. Subsequently Mr. Pittman became febrile and experienced rigors. Lactate was checked and elevated. Subsequent work-up including flu swab, CXR, Urinalysis, and CT of the abdomen and pelvis were all negative. Blood Cultures were obtained and returned positive for Staph Aureus, MSSA by sensitivity results yesterday. Only sources appears to be at the IV site he received in the field by EMS on his right hand, which is minimally erythematous but not cellulitic and without evidence of purulent drainage. He was moved to the ICU due to hypotension, and required a short course of pressor therapy. Due to initial need for volume and fluid resuscitation he became fluid overloaded, necessitating a lasix drip which he appears to be doing well on. This morning he appears improved. No overnight events reported. Patient has been afebrile since the evening of 05/07. Exam Narrative Exam Narrative: General: No longer ill appearing. AAOx3, NAD. HEENT: Neck supple. CV: Regular, no longer tachycardic, S1S2, 3/6 RUSB and LLSB murmur. Pulmonary: Bibasilar crackles continued but improving. Abdomen: + Bowel Sounds, soft, nontender, nondistended Vascular: Mild b/l lower extremity edema Psych: Normal mood and affect. Objective Objective Clinical Data: Abnormal lab results 05/08/18 05/09/18 05/09/18 Range/Units 13:02 07:20 07:20 RBC 3.34 L (4.50-6.00) m/cumm Hgb 9.9 L (13.5-17.5) g/dL Hct 28.7 L (40.0-50.0) % RDW 16.1 H (11.8-14.1) % Plt Count 120 L (130-400) x1000/uL Absolute Lymphocytes 0.89 L (1.2-3.4) k/cumm Potassium 3.2 L (3.5-5.1) mmol/L BUN 21 H (7-18) mg/dL Creatinine 1.48 H (0.70-1.30) mg/dL Calcium 8.1 L (8.5-10.1) mg/dL Troponin I 0.26 H* (0.00-0.06) ng/mL Vital Signs Temperature 36.5 C 05/09/18 03:37 Temperature Source Tympanic 05/09/18 03:37 Pulse 60 05/09/18 03:37 Pulse Rhythm Regular 05/06/18 16:00 Pulse 60 05/09/18 03:40 Respiratory Rate 22 05/09/18 03:40 Respiratory Effort Non-Labored 05/09/18 03:37 Respiratory Depth Normal 05/09/18 03:37 Respiratory Pattern Normal 05/09/18 03:37 Blood Pressure 113/56 L 05/09/18 03:37 Blood Pressure Mean 75 05/09/18 03:37 Blood Pressure Position Supine 05/09/18 03:37 Pulse Oximetry 93 L 05/09/18 03:37 Oxygen Delivery Method Room Air 05/09/18 03:37 Oxygen Flow Rate 0 05/09/18 03:37 Fraction of Inspired Oxygen (FIO2) 30 05/07/18 09:56 Pain Level 0 05/09/18 03:37 Comment 05/07/18 16:39 Intake & Output 05/08/18 05/08/18 05/09/18 11:59 23:59 11:59 Intake Total 500 / 1312.884 812.884 / 3667.684 6491.333 / 1461.333 Output Total 4350 / 6250 1900 / 6250 650 / 650 Balance -3850 / -4937.116 -1087.116 / -4937.116 811.333 / 811.333 Weight 96.8 kg 87.1 kg Intake: IV 332.884 / 363.356 6183.333 / 1261.333 Oral 500 / 980 480 / 980 200 / 200 Output: Urine 4350 / 6250 1900 / 6250 650 / 650 Other: Urine Color Yellow Yellow Light Jazzmine Urine Appearance Clear Clear Clear Comment At this time denies need to void. Jenkins intact and draining well. lasix gtt stopped Stool Occult Blood Negative Stool Size Moderate Stool Characteristics Soft Formed Voiding Methods Bedside Commode Laboratory Results WBC 5.33 k/cumm (4.4-10.8) 05/09/18 07:20 RBC 3.34 m/cumm (4.50-6.00) L 05/09/18 07:20 Hgb 9.9 g/dL (13.5-17.5) L 05/09/18 07:20 Hct 28.7 % (40.0-50.0) L 05/09/18 07:20 MCV 85.9 fL (80-95) 05/09/18 07:20 MCH 29.6 pg (27.0-33.0) 05/09/18 07:20 MCHC 34.5 g/dL (32.0-36.0) 05/09/18 07:20 RDW 16.1 % (11.8-14.1) H 05/09/18 07:20 Plt Count 120 x1000/uL (130-400) L 05/09/18 07:20 MPV 9.8 fL (8.0-11.0) 05/09/18 07:20 Immature Gran % 0.2 05/09/18 07:20 Neutrophils % 72.4 05/09/18 07:20 Lymphocytes % 16.7 05/09/18 07:20 Monocytes % 7.9 05/09/18 07:20 Eosinophils % 2.6 05/09/18 07:20 Basophils % 0.2 05/09/18 07:20 Absolute Neutrophils 3.86 k/cumm (1.2-6.7) 05/09/18 07:20 Absolute Lymphocytes 0.89 k/cumm (1.2-3.4) L 05/09/18 07:20 Absolute Monocytes 0.42 k/cumm (0.11-0.7) 05/09/18 07:20 Absolute Eosinophils 0.14 k/cumm (0.0-0.7) 05/09/18 07:20 Absolute Basophils 0.01 k/cumm (0.0-0.2) 05/09/18 07:20 PT 11.9 sec (9.3-11.0) H 05/02/18 10:35 INR 1.2 (0.9-1.1) H 05/02/18 10:35 APTT 28.5 sec (21.0-31.4) 05/08/18 09:15 Sodium 136 mmol/L (136-145) 05/09/18 07:20 Potassium 3.2 mmol/L (3.5-5.1) L 05/09/18 07:20 Chloride 104 mmol/L (98-107) 05/09/18 07:20 Carbon Dioxide 22.2 mmol/L (21.0-32.0) 05/09/18 07:20 Anion Gap 9.8 mmol/L (3-11) 05/09/18 07:20 BUN 21 mg/dL (7-18) H 05/09/18 07:20 Creatinine 1.48 mg/dL (0.70-1.30) H 05/09/18 07:20 Estimated GFR/1.73 m2 46.59 (mL/min/1.73m2) 05/09/18 07:20 Glucose 79 mg/dL (70-100) 05/09/18 07:20 Lactate 1.1 mmol/l (0.6-1.4) 05/07/18 23:36 Calcium 8.1 mg/dL (8.5-10.1) L 05/09/18 07:20 Magnesium 2.2 mg/dL (1.8-2.4) 05/09/18 07:20 Total Bilirubin 0.3 mg/dL (0.2-1.0) 05/02/18 10:35 AST 21 U/L (15-37) 05/02/18 10:35 ALT 27 U/L (12-78) 05/02/18 10:35 Alkaline Phosphatase 32 U/L (46-116) L 05/02/18 10:35 Troponin I 0.26 ng/mL (0.00-0.06) H* 05/08/18 13:02 Total Protein 7.1 g/dL (6.4-8.2) 05/02/18 10:35 NT-Pro-B Natriuret Pep 7642 pg/mL (-299) H 05/07/18 23:36 Albumin 3.9 g/dL (3.4-5.0) 05/02/18 10:35 Urine Color Yellow (Yellow) 05/05/18 15:30 Urine Clarity Clear 05/05/18 15:30 Urine pH 7.0 (5-8) 05/05/18 15:30 Ur Specific [place] 1.015 (1.005-1.025) 05/05/18 15:30 Urine Protein Negative mg/dL (Negative) 05/05/18 15:30 Urine Ketones Negative mg/dL (Negative) 05/05/18 15:30 Urine Blood Negative (Negative) 05/05/18 15:30 Urine Nitrite Negative (Negative) 05/05/18 15:30 Urine Bilirubin Negative (Negative) 05/05/18 15:30 Urine Urobilinogen 0.2 EU/dL (Up TO 0.2) 05/05/18 15:30 Ur Leukocyte Esterase Negative (Negative) 05/05/18 15:30 Urine Glucose 100 mg/dL (Negative) 05/05/18 15:30 Specimen Type Nasopharyngeal 05/06/18 19:05 Influenza Type A RNA Negative (Negative) 05/06/18 19:05 Influenza Type B RNA Negative (Negative) 05/06/18 19:05 RSV RNA Qual (PCR) Negative (Negative) 05/06/18 19:05
--- NOTE | 2018-05-09 11:46 | PGE_ITS ---
Date of Service Date of service: 05/09/18 Time of Service: 11:42 Assessment and Plan (1) Sepsis: Current visit: Yes Status: Acute MSSA Bacteremia. Urinalysis, Flu swab, CXR, and CT a/p all checked and without etiology. Right hand as possible portal of entry at site of prior IV - no evidence of abscess. Continue Cafazolin, day #2. TTE without evidence for Endocarditis. Discussed ca se with ID - patient has an AICD in place and is s/p TAVR with a bioprosthetic in place as well - regardless of TTE results recommendations are for CASSI, as if there is evidence of infection he will potentially require an intensive regimen such as Cefazolin, Rifampin, and Gent for a prolonged period +/- suppressive life long therapy after. Will attempt to discuss with cardiology today, and schedule for a CASSI first available. (2) MSSA bacteremia: Current visit: No Status: Acute Treatment as above. Currently on day #2 of Cefazolin. Repeat Blood Cultures again tomorrow morning. (3) Fever: Current visit: Yes Status: Acute In setting of MSSA bacteremia. (4) Acute kidney injury superimposed on chronic kidney disease: Current visit: Yes Status: Acute Symptoms at time of admission likely secondary to dehydration and hypotension. Creatinine currently at baseline. Continue to monitor as patient is undergoing diuresis. Continue to hold LAURA-I and Spironolactone and monitor. (5) Hypertension: Current visit: No Status: Chronic Continue to hold Spironolactone as well as oral Lasix, and hold previously reinitiated CCB and LAURA?I. Resume home dose of Carvedilol. Continue lasix gtt and monitor weight and renal function carefully. (6) CAD (coronary artery disease): Current visit: Yes Status: Chronic With reported STEMI wt cardiac arrest 12/2017 - s/p AICD. Serial Cardiac Biomarkers negative at time of admission. Continue ASA, statin, with BB on hold as above. Also on Fenofibrate. Patient with minimal troponin spill in setting of sepsis, hypotension, fevers, and Acute on CKD with poor clearance. Values trended out and decreased, and minimally elevated only. Very likely demand ischemia. Repeat ECHO with unchanged LVEF and no wall motion abnormality. (7) CHF (congestive heart failure): Current visit: Yes Status: Chronic ICMP with reported LVEF 40%, now with normalized ejection fraction. Continue aspirin and statin therapy. Also on LAURA-I, Spironolactone (being held). Continue lasix gtt in setting of volume overload following fluid resuscitation, and reinitiate home BB regimen. Repeat ECHO essentially unchanged. (8) Diabetes mellitus, type II: Current visit: No Status: Chronic Continue basal insulin and Glipizide. Also on sliding scale coverage. Continue to hold Metformin. (9) Chronic pain disorder: Current visit: No Status: Chronic Continue home Oxycodone. (10) Chronic obstructive pulmonary disease: Current visit: No Status: Chronic (11) Nausea & vomiting: Current visit: Yes Status: Acute In setting of acute illness. CT a/p negative. Appears resolved. Continue to treat infection as above. (12) DVT prophylaxis: Current visit: Yes Status: Acute SC Heparin. (13) Advance directive on file: Current visit: Yes Status: Acute DNR/DNI Subjective Interval history since last seen: 73 year old man with a prior history CHF, admitted from [facility] Emergency Department on 05/02 with a diagnosis of hypotension and DONTAE. Mr. Pittman has a past medical history significant for CAD, with a cardiac arrest 12/2017 due to an MD, for which he was treated at [facility] with cardiac catheterization. He also is s/p AICD, with a history of CHF with LVEF of reportedly 40% on Echocardiogram at [facility] but with normalized Ejection Fraction by repeat ECHO here without wall motion abnormalities. The patient also has a history of , with note of a bioprosthetic valve by his current ECHO, DM with peripheral neuropathy, ANNABELLE, dyslipidemia, HTN, CKD, chronic pain, and COPD. Other history includes ARDS in setting of infection with influenza at which time he required intubation and mechanical ventilation at [facility]. The patient presented to the ED with the sensation that he was going to have recurrent myocardial infarction. He denied chest pain, but reported dizziness and feeling unwell overall. Following transport to the hospital via EMS he was noted to be significantly hypotensive, with a SBP in the 70s and 80s prior to receiving IV Fluids. His serial troponins were negative and EKG reportedly unchanged. The patient was found to have evidence of DONTAE, found likely in the setting of overdiuresis, hypotensive, and dehydrated. The patient's original symptoms had essentially abated, his creatinine remained at baseline, and his blood pressure had become hypertensive. However, he went on to develop nausea, vomiting, and dizzeness. Subsequently Mr. Pittman became febrile and experienced rigors. Lactate was checked and elevated. Subsequent work-up including flu swab, CXR, Urinalysis, and CT of the abdomen and pelvis were all negative. Blood Cultures were obtained and returned positive for Staph Aureus, MSSA by sensitivity results yesterday. Only sources appears to be at the IV site he received in the field by EMS on his right hand, which is minimally erythematous but not cellulitic and without evidence of purulent drainage. He was moved to the ICU due to hypotension, and required a short course of pressor therapy. Due to initial need for volume and fluid resuscitation he became fluid overloaded, necessitating a lasix drip which he appears to be doing well on. This morning he appears improved. No overnight events reported. Patient has been afebrile since the evening of 05/07. Exam Narrative Exam Narrative: General: No longer ill appearing. AAOx3, NAD. HEENT: Neck supple. CV: Regular, no longer tachycardic, S1S2, 3/6 RUSB and LLSB murmur. Pulmonary: Bibasilar crackles continued but improving. Abdomen: + Bowel Sounds, soft, nontender, nondistended Vascular: Mild b/l lower extremity edema Psych: Normal mood and affect. Objective Objective Clinical Data: Abnormal lab results 05/08/18 05/09/18 05/09/18 Range/Units 13:02 07:20 07:20 RBC 3.34 L (4.50-6.00) m/cumm Hgb 9.9 L (13.5-17.5) g/dL Hct 28.7 L (40.0-50.0) % RDW 16.1 H (11.8-14.1) % Plt Count 120 L (130-400) x1000/uL Absolute Lymphocytes 0.89 L (1.2-3.4) k/cumm Potassium 3.2 L (3.5-5.1) mmol/L BUN 21 H (7-18) mg/dL Creatinine 1.48 H (0.70-1.30) mg/dL Calcium 8.1 L (8.5-10.1) mg/dL Troponin I 0.26 H* (0.00-0.06) ng/mL Vital Signs Temperature 36.5 C 05/09/18 03:37 Temperature Source Tympanic 05/09/18 03:37 Pulse 60 05/09/18 03:37 Pulse Rhythm Regular 05/06/18 16:00 Pulse 60 05/09/18 03:40 Respiratory Rate 22 05/09/18 03:40 Respiratory Effort Non-Labored 05/09/18 03:37 Respiratory Depth Normal 05/09/18 03:37 Respiratory Pattern Normal 05/09/18 03:37 Blood Pressure 113/56 L 05/09/18 03:37 Blood Pressure Mean 75 05/09/18 03:37 Blood Pressure Position Supine 05/09/18 03:37 Pulse Oximetry 93 L 05/09/18 03:37 Oxygen Delivery Method Room Air 05/09/18 03:37 Oxygen Flow Rate 0 05/09/18 03:37 Fraction of Inspired Oxygen (FIO2) 30 05/07/18 09:56 Pain Level 0 05/09/18 03:37 Comment 05/07/18 16:39 Intake & Output 05/08/18 05/08/18 05/09/18 11:59 23:59 11:59 Intake Total 500 / 1312.884 812.884 / 8629.782 3558.333 / 1461.333 Output Total 4350 / 6250 1900 / 6250 650 / 650 Balance -3850 / -4937.116 -1087.116 / -4937.116 811.333 / 811.333 Weight 96.8 kg 87.1 kg Intake: IV 332.884 / 107.495 4901.333 / 1261.333 Oral 500 / 980 480 / 980 200 / 200 Output: Urine 4350 / 6250 1900 / 6250 650 / 650 Other: Urine Color Yellow Yellow Light Jazzmine Urine Appearance Clear Clear Clear Comment At this time denies need to void. Jenkins intact and draining well. lasix gtt stopped Stool Occult Blood Negative Stool Size Moderate Stool Characteristics Soft Formed Voiding Methods Bedside Commode Laboratory Results WBC 5.33 k/cumm (4.4-10.8) 05/09/18 07:20 RBC 3.34 m/cumm (4.50-6.00) L 05/09/18 07:20 Hgb 9.9 g/dL (13.5-17.5) L 05/09/18 07:20 Hct 28.7 % (40.0-50.0) L 05/09/18 07:20 MCV 85.9 fL (80-95) 05/09/18 07:20 MCH 29.6 pg (27.0-33.0) 05/09/18 07:20 MCHC 34.5 g/dL (32.0-36.0) 05/09/18 07:20 RDW 16.1 % (11.8-14.1) H 05/09/18 07:20 Plt Count 120 x1000/uL (130-400) L 05/09/18 07:20 MPV 9.8 fL (8.0-11.0) 05/09/18 07:20 Immature Gran % 0.2 05/09/18 07:20 Neutrophils % 72.4 05/09/18 07:20 Lymphocytes % 16.7 05/09/18 07:20 Monocytes % 7.9 05/09/18 07:20 Eosinophils % 2.6 05/09/18 07:20 Basophils % 0.2 05/09/18 07:20 Absolute Neutrophils 3.86 k/cumm (1.2-6.7) 05/09/18 07:20 Absolute Lymphocytes 0.89 k/cumm (1.2-3.4) L 05/09/18 07:20 Absolute Monocytes 0.42 k/cumm (0.11-0.7) 05/09/18 07:20 Absolute Eosinophils 0.14 k/cumm (0.0-0.7) 05/09/18 07:20 Absolute Basophils 0.01 k/cumm (0.0-0.2) 05/09/18 07:20 PT 11.9 sec (9.3-11.0) H 05/02/18 10:35 INR 1.2 (0.9-1.1) H 05/02/18 10:35 APTT 28.5 sec (21.0-31.4) 05/08/18 09:15 Sodium 136 mmol/L (136-145) 05/09/18 07:20 Potassium 3.2 mmol/L (3.5-5.1) L 05/09/18 07:20 Chloride 104 mmol/L (98-107) 05/09/18 07:20 Carbon Dioxide 22.2 mmol/L (21.0-32.0) 05/09/18 07:20 Anion Gap 9.8 mmol/L (3-11) 05/09/18 07:20 BUN 21 mg/dL (7-18) H 05/09/18 07:20 Creatinine 1.48 mg/dL (0.70-1.30) H 05/09/18 07:20 Estimated GFR/1.73 m2 46.59 (mL/min/1.73m2) 05/09/18 07:20 Glucose 79 mg/dL (70-100) 05/09/18 07:20 Lactate 1.1 mmol/l (0.6-1.4) 05/07/18 23:36 Calcium 8.1 mg/dL (8.5-10.1) L 05/09/18 07:20 Magnesium 2.2 mg/dL (1.8-2.4) 05/09/18 07:20 Total Bilirubin 0.3 mg/dL (0.2-1.0) 05/02/18 10:35 AST 21 U/L (15-37) 05/02/18 10:35 ALT 27 U/L (12-78) 05/02/18 10:35 Alkaline Phosphatase 32 U/L (46-116) L 05/02/18 10:35 Troponin I 0.26 ng/mL (0.00-0.06) H* 05/08/18 13:02 Total Protein 7.1 g/dL (6.4-8.2) 05/02/18 10:35 NT-Pro-B Natriuret Pep 7642 pg/mL (-299) H 05/07/18 23:36 Albumin 3.9 g/dL (3.4-5.0) 05/02/18 10:35 Urine Color Yellow (Yellow) 05/05/18 15:30 Urine Clarity Clear 05/05/18 15:30 Urine pH 7.0 (5-8) 05/05/18 15:30 Ur Specific [place] 1.015 (1.005-1.025) 05/05/18 15:30 Urine Protein Negative mg/dL (Negative) 05/05/18 15:30 Urine Ketones Negative mg/dL (Negative) 05/05/18 15:30 Urine Blood Negative (Negative) 05/05/18 15:30 Urine Nitrite Negative (Negative) 05/05/18 15:30 Urine Bilirubin Negative (Negative) 05/05/18 15:30 Urine Urobilinogen 0.2 EU/dL (Up TO 0.2) 05/05/18 15:30 Ur Leukocyte Esterase Negative (Negative) 05/05/18 15:30 Urine Glucose 100 mg/dL (Negative) 05/05/18 15:30 Specimen Type Nasopharyngeal 05/06/18 19:05 Influenza Type A RNA Negative (Negative) 05/06/18 19:05 Influenza Type B RNA Negative (Negative) 05/06/18 19:05 RSV RNA Qual (PCR) Negative (Negative) 05/06/18 19:05
[2018-05-09] MEDS: Normal Saline 1,000 ML 20 ML IV (12:45)
[2018-05-09] MEDS: Acetaminophen 325 MG TAB PO ×2 (14:19→21:33)
[2018-05-09] MEDS: Polyethylene Glycol 3350 17 GM PACKET PO (14:19)
[2018-05-09] MEDS: Pantoprazole 40 MG VIAL IVP (17:29)
[2018-05-09] MEDS: oxyCODONE 10 MG TAB PO (21:32)
[2018-05-09] MEDS: CARVEDILOL 12.5 MG TAB PO (21:32)
[2018-05-09] MEDS: Mirtazapine 15 MG TAB PO (21:32)
[2018-05-10] VITALS (33 sets, daily range): BP systolic 119–172; BP diastolic 49–115; PULSE 59–60; RESP 13–27; TEMP 36.9–37.8; O2SAT 91–95
[2018-05-10] MEDS: Heparin 5,000 UNITS/ML VIAL 5000 UNITS SC ×4 (00:59→23:22)
[2018-05-10 07:03] LABS: Abs Immature Grans 0.03 k/cumm (0.0-0.09); Absolute Basophil Count 0.02 k/cumm (0.0-0.2); Absolute Eosinophil Count 0.17 k/cumm (0.0-0.7); Absolute Lymphocyte Count 1.47 k/cumm (1.2-3.4); Absolute Monocyte Count 0.74 k/cumm (0.11-0.7); Absolute Neutrophil Count 3.86 k/cumm (1.2-6.7); Basophils % 0.3; Eosinophils % 2.7; HCT 29.6 % (40.0-50.0); HGB 10.3 g/dL (13.5-17.5); Immature Grans % 0.5; Lymphocytes % 23.4; Mean Corp. HGB Concentration 34.8 g/dL (32.0-36.0); Mean Corpuscular Hemoglobin 29.8 pg (27.0-33.0); Mean Corpuscular Volume 85.5 fL (80-95); Monocytes % 11.8; Neutrophils % 61.3; Platelet Count 160 x1000/uL (130-400); RBC 3.46 m/cumm (4.50-6.00); RBC Distribution Width 16.3 % (11.8-14.1); White Blood Cell Count 6.29 k/cumm (4.4-10.8)
[2018-05-10 07:21] LABS: Anion Gap 8.8 mmol/L (3-11); BUN 20 mg/dL (7-18); CO2 24.2 mmol/L (21.0-32.0); Calcium 8.3 mg/dL (8.5-10.1); Chloride 102 mmol/L (98-107); Estimated GFR 49.68 (mL/min/1.73m2); Glucose 107 mg/dL (70-100); Magnesium 2.1 mg/dL (1.8-2.4); Potassium 3.3 mmol/L (3.5-5.1); Sodium 135 mmol/L (136-145)
[2018-05-10] MEDS: Fenofibrate, Micronized 145 MG TAB PO (08:55)
[2018-05-10] MEDS: Aspirin E.C. 81 MG TABEC PO (08:55)
[2018-05-10] MEDS: Atorvastatin 20 MG TAB 60 MG PO (08:55)
[2018-05-10] MEDS: CARVEDILOL 12.5 MG TAB PO ×2 (08:55→19:56)
[2018-05-10] MEDS: Magnesium Oxide 400 MG TAB PO ×2 (08:55→19:56)
--- NOTE | 2018-05-10 09:02 | PDOC.CMPRO ---
- If Service Date Differs Date of service: 05/10/18 Time of Service: 09:02 Care Management Progress Note S/O: Kam is alert and engaged during assessment. He states that he is no longer able to live in his current situation and that he needs to have his girlfriend and her children out of his environment. He starts to cry several times during the visit. He states I cant do this anymore, I cannot handle being sick anymore. Why cant I just , I don't want to live anymore. He states that his family all lives in [place] and that he does not see them. He has several nephews that he would like to see but can't due to location. He states he wants to be in [place] this is where his parents lives and , its important to him to be in the same area. He states his goals are to Stay in [place], and live independently. He would like support through [facility], [facility] and [employer]. He states he has attempted to obtain [email or web address] in the past and was unable to find assistance. CM faxed a referral today to [facility] and provided the patient with the [email or web address] information. Kam's right hand appears more swollen, orthopedic consult has been ordered. He states it is becoming more painful and hard to use that hand. He states that he is tired today he reports not sleeping well due to IV pump continuously making noise throughout the night. He is prepared to stay as long as he needs to for IV antibiotics. He is requesting more information about a rehab which he feels he may need prior to returning home. CM reviewed SB1 for IV antibiotics with PT/OT vs Rehab for SNF pending CASSI results and orthopedic recommendations. A: 73 y/o male admitted 05/02/18 for acute renal insufficiency P: Kam will continue to be closely monitored with Sepsis-MSSA bacteremia, DONTAE with chronic kidney disease, CAD and CHF as well as DM and COPD. He is awaiting a CASSI anticipate 6 weeks of antibiotic therapy. Kam remains in the ICU at ICU level of care at this time. CM will continue to follow, anticipate his significant other Mine will transport when ready.
[2018-05-10] MEDS: Fluticasone NASAL SPRAY 16 GM BTL NS (09:05)
[2018-05-10] MEDS: Fluticasone-Umeclidin-Vilanter [Trelegy Ellipta] IH (09:05)
[2018-05-10] MEDS: Insulin Aspart 300 UNITS/3 ML PEN SC ×2 (12:40→17:17)
--- NOTE | 2018-05-10 13:00 | DI.CT_ITS ---
SYMPTOMS/DIAGNOSIS: ? ABSCESS, SMALL WOUND ON POSTERIOR HAND, TENDERNESS CT OF THE RIGHT HAND: There is soft tissue swelling over the dorsal aspect of the hand over the metacarpal region. No drainable abscess is seen. There is no evidence of fracture. Degenerative changes are seen greatest of the interphalangeal joints of the fingers. IMPRESSION: Dorsal soft tissue swelling. No visible abscess.
--- NOTE | 2018-05-10 13:20 | W.PM.PROGNOT ---
Date of Service Date of service: 05/10/18 Time of Service: 13:20 Assessment and Plan (1) Sepsis: Current visit: Yes Status: Acute with MSSA Bacteremia. While portal of entry is likely the R hand lesion, there is concern for endocarditis as patient is s/p TAVR as well as AICD seeding. Given worsening of the R hand symptoms, I have ordered a CT of his hand. Will review with ortho (no ortho recreation attendant supervisor at [facility] today; may have to reach out to tertiary care facilities). For now, I have added vancomycin to ancef. Await repeat blood cultures. Trend CRP. Planned for CASSI on Saturday. (2) Cellulitis of right hand: Current visit: Yes Status: Acute As above (3) MSSA bacteremia: Current visit: No Status: Acute As above. Continue cefazolin (Day 3); vancomycin added today (Day 1). Blood cultures from this am are pending. (4) Fever: Current visit: Yes Status: Acute Part of SIRS. (5) Acute kidney injury superimposed on chronic kidney disease: Current visit: Yes Status: Acute Improved; likely prerenal. Creatinine currently at baseline. Continue to monitor as patient is undergoing diuresis. Continue to hold LAURA-I and Spironolactone and monitor. (6) Hypertension: Current visit: No Status: Chronic Continue home dose of Carvedilol. Continue lasix gtt and monitor weight and renal function carefully. (7) CAD (coronary artery disease): Current visit: Yes Status: Chronic With reported STEMI wt cardiac arrest 12/2017 - s/p AICD. No ACS on this admission. Continue ASA, statin, BB, fenofibrate. (8) CHF (congestive heart failure): Current visit: Yes Status: Chronic ICMO now with normalized ejection fraction, he is s/p AICD. Continue aspirin and statin therapy. Continue to hold laura-i and spironolactone. Continue lasix gtt in setting of volume overload following fluid resuscitation. Continue BB. Awaiting CASSI (9) Diabetes mellitus, type II: Current visit: No Status: Chronic Continue basal insulin and Glipizide. Also on sliding scale coverage. Continue to hold Metformin. (10) Chronic pain disorder: Current visit: No Status: Chronic Continue home Oxycodone. (11) Chronic obstructive pulmonary disease: Current visit: No Status: Chronic Not in acute exacerbation (12) Nausea & vomiting: Current visit: Yes Status: Acute In setting of acute illness. CT a/p negative. Resolved. Continue to treat infection as above. (13) DVT prophylaxis: Current visit: Yes Status: Acute SC Heparin. (14) Advance directive on file: Current visit: Yes Status: Acute DNR/DNI Subjective Interval history since last seen: Mr Pittman states that this hand actually feels worse today. His R hand is worse today, he states. It is more painful, red and swollen. He statates that he does not have numbness or tingling in his hand until he tries to exercise with it, then after some time, it starts. He states he slept poorly because of the IV pumps beeping loudly all night. Denies dizziness, chest pain, shortness of breath, nausea, vomiting. Hypoglycemic last night to 59. Exam Narrative Exam Narrative: General: Obese male, pleasant, sitting in a chair, comfortable HEENT: EOMI, MMM Heart: RRR, + KARINA Lungs: CTAB GI: abdomen is soft, nontender, nondistended Extremities: dorsal surface of R hand with an erythematous lesion and surrounding erythema; no onbvious drainage, there does appear to be some induration; hand overall swollen. Full ROM, but with pain. 1+ BLE edema Objective Objective Clinical Data: Abnormal lab results 05/10/18 05/10/18 Range/Units 06:25 06:25 RBC 3.46 L (4.50-6.00) m/cumm Hgb 10.3 L (13.5-17.5) g/dL Hct 29.6 L (40.0-50.0) % RDW 16.3 H (11.8-14.1) % Absolute Monocytes 0.74 H (0.11-0.7) k/cumm Sodium 135 L (136-145) mmol/L Potassium 3.3 L (3.5-5.1) mmol/L BUN 20 H (7-18) mg/dL Creatinine 1.40 H (0.70-1.30) mg/dL Glucose 107 H (70-100) mg/dL Calcium 8.3 L (8.5-10.1) mg/dL Vital Signs Temperature 37.8 C H 05/10/18 08:11 Temperature Source Temporal Artery Scan 05/10/18 08:11 Pulse 60 05/10/18 08:11 Pulse Rhythm Regular 05/06/18 16:00 Pulse 60 05/10/18 05:01 Respiratory Rate 16 05/10/18 08:11 Respiratory Effort Non-Labored 05/10/18 08:11 Respiratory Depth Normal 05/10/18 08:11 Respiratory Pattern Normal 05/10/18 08:11 Blood Pressure 171/62 H 05/10/18 05:01 Blood Pressure Mean 88 05/10/18 05:01 Blood Pressure Position Sitting 05/09/18 21:00 Pulse Oximetry 95 05/10/18 08:11 Oxygen Delivery Method Room Air 05/10/18 08:11 Oxygen Flow Rate 0 05/10/18 08:11 Fraction of Inspired Oxygen (FIO2) 30 05/07/18 09:56 Pain Level 7 05/10/18 08:11 Comment 05/09/18 14:00 Intake & Output 05/09/18 05/10/18 05/10/18 23:59 11:59 23:59 Intake Total 1193.875 / 2895.208 257.333 / 257.333 Output Total 1550 / 2900 2345 / 2595 250 / 2595 Balance -356.125 / -4.792 -2087.667 / -2337.667 -250 / -2337.667 Weight 89.9 kg Intake: IV 503.875 / 1765.208 17.333 / 17.333 Oral 690 / 1130 240 / 240 Output: Urine 1550 / 2900 2345 / 2595 250 / 2595 Other: Urine Color Yellow Yellow Yellow Straw Straw Urine Appearance Clear Clear Clear Mucous Threads Comment doty patent Indwelling Doty catheter. Furosemide drip infusing at 2.5 mg/hr. Stool Occult Blood Positive Stool Size Small Stool Characteristics Soft Formed Laboratory Results WBC 6.29 k/cumm (4.4-10.8) 05/10/18 06:25 RBC 3.46 m/cumm (4.50-6.00) L 05/10/18 06:25 Hgb 10.3 g/dL (13.5-17.5) L 05/10/18 06:25 Hct 29.6 % (40.0-50.0) L 05/10/18 06:25 MCV 85.5 fL (80-95) 05/10/18 06:25 MCH 29.8 pg (27.0-33.0) 05/10/18 06:25 MCHC 34.8 g/dL (32.0-36.0) 05/10/18 06:25 RDW 16.3 % (11.8-14.1) H 05/10/18 06:25 Plt Count 160 x1000/uL (130-400) 05/10/18 06:25 MPV 10.0 fL (8.0-11.0) 05/10/18 06:25 Immature Gran % 0.5 05/10/18 06:25 Neutrophils % 61.3 05/10/18 06:25 Lymphocytes % 23.4 05/10/18 06:25 Monocytes % 11.8 05/10/18 06:25 Eosinophils % 2.7 05/10/18 06:25 Basophils % 0.3 05/10/18 06:25 Absolute Neutrophils 3.86 k/cumm (1.2-6.7) 05/10/18 06:25 Absolute Lymphocytes 1.47 k/cumm (1.2-3.4) 05/10/18 06:25 Absolute Monocytes 0.74 k/cumm (0.11-0.7) H 05/10/18 06:25 Absolute Eosinophils 0.17 k/cumm (0.0-0.7) 05/10/18 06:25 Absolute Basophils 0.02 k/cumm (0.0-0.2) 05/10/18 06:25 PT 11.9 sec (9.3-11.0) H 05/02/18 10:35 INR 1.2 (0.9-1.1) H 05/02/18 10:35 APTT 28.5 sec (21.0-31.4) 05/08/18 09:15 Sodium 135 mmol/L (136-145) L 05/10/18 06:25 Potassium 3.3 mmol/L (3.5-5.1) L 05/10/18 06:25 Chloride 102 mmol/L (98-107) 05/10/18 06:25 Carbon Dioxide 24.2 mmol/L (21.0-32.0) 05/10/18 06:25 Anion Gap 8.8 mmol/L (3-11) 05/10/18 06:25 BUN 20 mg/dL (7-18) H 05/10/18 06:25 Creatinine 1.40 mg/dL (0.70-1.30) H 05/10/18 06:25 Estimated GFR/1.73 m2 49.68 (mL/min/1.73m2) 05/10/18 06:25 Glucose 107 mg/dL (70-100) H 05/10/18 06:25 Lactate 1.1 mmol/l (0.6-1.4) 05/07/18 23:36 Calcium 8.3 mg/dL (8.5-10.1) L 05/10/18 06:25 Magnesium 2.1 mg/dL (1.8-2.4) 05/10/18 06:25 Total Bilirubin 0.3 mg/dL (0.2-1.0) 05/02/18 10:35 AST 21 U/L (15-37) 05/02/18 10:35 ALT 27 U/L (12-78) 05/02/18 10:35 Alkaline Phosphatase 32 U/L (46-116) L 05/02/18 10:35 Troponin I 0.26 ng/mL (0.00-0.06) H* 05/08/18 13:02 Total Protein 7.1 g/dL (6.4-8.2) 05/02/18 10:35 NT-Pro-B Natriuret Pep 7642 pg/mL (-299) H 05/07/18 23:36 Albumin 3.9 g/dL (3.4-5.0) 05/02/18 10:35 Urine Color Yellow (Yellow) 05/05/18 15:30 Urine Clarity Clear 05/05/18 15:30 Urine pH 7.0 (5-8) 05/05/18 15:30 Ur Specific [place] 1.015 (1.005-1.025) 05/05/18 15:30 Urine Protein Negative mg/dL (Negative) 05/05/18 15:30 Urine Ketones Negative mg/dL (Negative) 05/05/18 15:30 Urine Blood Negative (Negative) 05/05/18 15:30 Urine Nitrite Negative (Negative) 05/05/18 15:30 Urine Bilirubin Negative (Negative) 05/05/18 15:30 Urine Urobilinogen 0.2 EU/dL (Up TO 0.2) 05/05/18 15:30 Ur Leukocyte Esterase Negative (Negative) 05/05/18 15:30 Urine Glucose 100 mg/dL (Negative) 05/05/18 15:30 Specimen Type Nasopharyngeal 05/06/18 19:05 Influenza Type A RNA Negative (Negative) 05/06/18 19:05 Influenza Type B RNA Negative (Negative) 05/06/18 19:05 RSV RNA Qual (PCR) Negative (Negative) 05/06/18 19:05
--- NOTE | 2018-05-10 14:30 | DI.VRAD_ITS ---
EXAM: CT Right Upper Extremity Without Contrast, Hand EXAM DATE/TIME: 05/10/2018 1:22 PM CLINICAL HISTORY: 73 years old, male; Pain; Hand; Right; Patient HX: Wound on posterior aspect of hand, rule out abscess. TECHNIQUE: Imaging protocol: CT of the Right upper extremity without contrast was performed. Exam focused on the hand. Coronal and sagittal reformatted images were created and reviewed. Radiation optimization: All CT scans at this facility use at least one of these dose optimization techniques: automated exposure control; mA and/or kV adjustment per patient size (includes targeted exams where dose is matched to clinical indication); or iterative reconstruction. COMPARISON: No relevant prior studies available. 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 Soft tissues: Mild edema in the soft tissues over the dorsal hand without abscess or soft tissue emphysema. IMPRESSION: Mild edema in the soft tissues over the dorsal hand without abscess or soft tissue emphysema. Dictated and Authenticated by: Patrick Royal MD. Ordering:SYED Haile MD
[2018-05-10] MEDS: Pantoprazole 40 MG VIAL IVP (16:04)
[2018-05-10] MEDS: Normal Saline Flush 10 ML SYR IVP (16:04)
[2018-05-10] MEDS: Acetaminophen 325 MG TAB PO (19:56)
[2018-05-10] MEDS: Mirtazapine 15 MG TAB PO (19:57)
[2018-05-10] MEDS: oxyCODONE 10 MG TAB PO (19:57)
[2018-05-11] VITALS (25 sets, daily range): BP systolic 102–154; BP diastolic 46–76; PULSE 59–60; RESP 14–22; TEMP 36.8–38.4; O2SAT 95–97
[2018-05-11] MEDS: Acetaminophen 325 MG TAB PO ×3 (01:58→18:45)
[2018-05-11] MEDS: Normal Saline Flush 10 ML SYR IVP ×2 (06:40→19:57)
[2018-05-11 07:24] LABS: Anion Gap 13.1 mmol/L (3-11); BUN 21 mg/dL (7-18); C-Reactive Protein 12.61 mg/dL (0.0-0.3); CO2 22.9 mmol/L (21.0-32.0); CREATININE 1.47 mg/dL (0.70-1.30); Chloride 100 mmol/L (98-107); Estimated GFR 46.96 (mL/min/1.73m2); Glucose 158 mg/dL (70-100); Potassium 3.8 mmol/L (3.5-5.1); Sodium 136 mmol/L (136-145)
[2018-05-11 07:51] LABS: Abs Immature Grans 0.12 k/cumm (0.0-0.09); Absolute Basophil Count 0.04 k/cumm (0.0-0.2); Absolute Lymphocyte Count 2.16 k/cumm (1.2-3.4); Absolute Monocyte Count 0.94 k/cumm (0.11-0.7); Absolute Neutrophil Count 4.04 k/cumm (1.2-6.7); Basophils % 0.5; Eosinophils % 5.2; HGB 10.9 g/dL (13.5-17.5); Immature Grans % 1.6; Lymphocytes % 28.1; Mean Corp. HGB Concentration 34.1 g/dL (32.0-36.0); Mean Corpuscular Hemoglobin 28.8 pg (27.0-33.0); Mean Corpuscular Volume 84.7 fL (80-95); Mean Platelet Volume 10.4 fL (8.0-11.0); Monocytes % 12.2; Neutrophils % 52.4; Platelet Count 213 x1000/uL (130-400); RBC 3.78 m/cumm (4.50-6.00); RBC Distribution Width 16.4 % (11.8-14.1)
--- NOTE | 2018-05-11 07:51 | PDOC.CMPRO ---
- If Service Date Differs Date of service: 05/11/18 Time of Service: 07:51 Care Management Progress Note S/O:Kam remains in the ICU. Blood cultures from 05/10/18 are negative. He remains on IV antibiotics and on cardiac monitoring. He will have a palliative consult and CM has request PT/OT. aware of Kam's mental health, including his statements of hopelessness. PONCHO recommends a referral to psychiatry consult. A: 73 y/o male admitted 05/02/18 for acute renal insufficiency P: Kam will continue to be closely monitored with Sepsis-MSSA bacteremia, DONTAE with chronic kidney disease, CAD and CHF as well as DM and COPD. He is awaiting a CASSI anticipate 6 weeks of antibiotic therapy. Kam remains in the ICU at ICU level of care at this time. CM will continue to follow, anticipate his significant other Mine will transport when ready.
[2018-05-11] MEDS: Atorvastatin 20 MG TAB 60 MG PO (08:10)
[2018-05-11] MEDS: Magnesium Oxide 400 MG TAB PO ×2 (08:11→19:56)
[2018-05-11] MEDS: CARVEDILOL 12.5 MG TAB PO ×2 (08:11→19:56)
[2018-05-11] MEDS: Fenofibrate, Micronized 145 MG TAB PO (08:11)
[2018-05-11] MEDS: Aspirin E.C. 81 MG TABEC PO (08:12)
[2018-05-11] MEDS: Heparin 5,000 UNITS/ML VIAL 5000 UNITS SC ×2 (08:12→16:52)
[2018-05-11] MEDS: Insulin Aspart 300 UNITS/3 ML PEN SC ×3 (08:12→17:01)
[2018-05-11] MEDS: Fluticasone NASAL SPRAY 16 GM BTL NS (08:13)
[2018-05-11] MEDS: Furosemide 40 MG TAB PO ×2 (10:55→16:53)
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
[2018-05-11] MEDS: Pantoprazole 40 MG VIAL IVP (16:52)
[2018-05-11] MEDS: oxyCODONE 10 MG TAB PO (18:45)
[2018-05-11] MEDS: Docusate Sodium 100 MG CAP PO (19:56)
[2018-05-11] MEDS: Normal Saline 500 ML IV (21:19)
[2018-05-11] MEDS: Mirtazapine 15 MG TAB PO (21:19)
[2018-05-12] VITALS (11 sets, daily range): BP systolic 151–175; BP diastolic 66–98; PULSE 58–83; RESP 16–19; TEMP 36.7–37.9; O2SAT 92–98
[2018-05-12] MEDS: Normal Saline Flush 10 ML SYR IVP ×6 (06:42→23:15)
[2018-05-12 07:35] LABS: Abs Immature Grans 0.09 k/cumm (0.0-0.09); Absolute Basophil Count 0.04 k/cumm (0.0-0.2); Absolute Eosinophil Count 0.18 k/cumm (0.0-0.7); Absolute Monocyte Count 0.84 k/cumm (0.11-0.7); Absolute Neutrophil Count 3.82 k/cumm (1.2-6.7); Basophils % 0.5; Eosinophils % 2.4; HCT 31.1 % (40.0-50.0); HGB 10.5 g/dL (13.5-17.5); Immature Grans % 1.2; Lymphocytes % 32.6; Mean Corp. HGB Concentration 33.8 g/dL (32.0-36.0); Mean Corpuscular Hemoglobin 29.4 pg (27.0-33.0); Mean Corpuscular Volume 87.1 fL (80-95); Mean Platelet Volume 9.8 fL (8.0-11.0); Monocytes % 11.4; Neutrophils % 51.9; Platelet Count 285 x1000/uL (130-400); RBC 3.57 m/cumm (4.50-6.00); RBC Distribution Width 16.5 % (11.8-14.1); White Blood Cell Count 7.37 k/cumm (4.4-10.8)
[2018-05-12] MEDS: Fluticasone-Umeclidin-Vilanter [Trelegy Ellipta] IH (07:38)
[2018-05-12 07:46] LABS: Anion Gap 11.8 mmol/L (3-11); BUN 20 mg/dL (7-18); C-Reactive Protein 8.99 mg/dL (0.0-0.3); CO2 25.2 mmol/L (21.0-32.0); CREATININE 1.49 mg/dL (0.70-1.30); Chloride 100 mmol/L (98-107); Estimated GFR 46.23 (mL/min/1.73m2); Glucose 161 mg/dL (70-100); Magnesium 2.1 mg/dL (1.8-2.4); Potassium 3.6 mmol/L (3.5-5.1); Sodium 137 mmol/L (136-145)
[2018-05-12] MEDS: CARVEDILOL 12.5 MG TAB PO ×2 (08:32→19:22)
[2018-05-12] MEDS: Fluticasone NASAL SPRAY 16 GM BTL NS (08:32)
[2018-05-12] MEDS: Aspirin E.C. 81 MG TABEC PO (08:32)
[2018-05-12] MEDS: Fenofibrate, Micronized 145 MG TAB PO (08:32)
[2018-05-12] MEDS: Atorvastatin 20 MG TAB 60 MG PO (08:32)
[2018-05-12] MEDS: Furosemide 40 MG TAB PO ×2 (08:32→15:33)
[2018-05-12] MEDS: Magnesium Oxide 400 MG TAB PO ×2 (08:33→19:22)
--- NOTE | 2018-05-12 10:13 | PT.INIE ---
Date of service: 05/12/18 Time of Service: 09:40 PT Notes Inpatient Physical Therapy Evaluation Date: 05/12/18 Referring Doctor: Dr. Soto PT Orders: PT CONSULT: eval and treat Precautions: fall, standard Patient Profile/Admitting Diagnosis: Patient admitted 05/02/18 due to MSSA bacteremia and right hand cellulitis. He transitioned from the ICU to Med Surg yesterday afternoon and is awaiting further cardiac testing today. PMHX: DONTAE, HTN, CAD with h/o STEMI 12/2017 and s/p AICD placement; CHF; DM; COPD Social History/Home Situation: Patient lives independently in an apartment in [place]. He has a significant other who is supportive. He is normally independent, and gets around without an assistive device. He admits to balance issues, and had been attending outpatient PT as recently as February 2018 to address this. Equipment Owned/DME: Has FWW, which he does not currently utilize Subjective: Kam states that he is not able to walk at this time due to feeling dizzy. He is awaiting testing and has been NPO since last evening. He does not feel confident in his ability to exert himself. He reports ongoing pain in his right hand, but otherwise has no pain complaints. States that he's been walking 1-2x/day with nursing, using a walker and being followed with a wheelchair. He thinks he could probably walk the length of the arenas (~100) if he did it in short bursts. States that he's limited by weakness and shortness of breath. Objective: General Observation: Sitting at EOB with nursing present. Patient has IV in LUE; no additional lines. Mental Status: A&Ox3. Pain: right hand pain (patient unable to quantify) ROM: Right Upper Extremity: Shoulder flexion 100 degrees. Elbow and wrist motion WFL. Left Upper Extremity: Shoulder flexion 100 degrees. Elbow and wrist motion WFL. Right Lower Extremity: Grossly WFL Left Lower Extremity: Grossly WFL Strength: Right Upper Extremity: Shoulder flexion 3-/5. Biceps 3/5 or greater. Tool And Cutter Grinder is weak, but equal. Left Upper Extremity: Shoulder flexion 3-/5. Biceps 3/5 or greater. Tool And Cutter Grinder is weak, but equal. Right Lower Extremity: Hip flexion 5/5. Quads 5/5. HS 4/5. Ankle DF 4+/5. Left Lower Extremity: Hip flexion 4/5, with reports of lateral hip pain. Quads 5/5. HS 4/5. Ankle DF 4+/5. Bed Mobility/Transfers: supine->sit: independent sit->supine: independent sit->stand: supervision stand->sit: supervision Gait: Patient refuses ambulation due to dizziness. He is able to statically stand x 3 minutes, although with reports of increasing dizziness. Balance: Static Sitting: Normal Dynamic Sitting: Normal Static Standing: Good Dynamic Standing: Fair Special Tests: Patient requires CG for small WONG standing, which he performs x 30 seconds with moderately increased sway, but no true LOB. He refuses SLS and partial tandem stance. Mobility Limitations Standardized Measure [facility] AM-PAC 6 clicks Basic Mobility Inpatient Short Form: Raw Score: 20 CMS Score: 36% Informed Consent/Education: Patient instructed in purpose of PT consult and plan of care. Assessment: Patient is a 73 year old male referred to physical therapy services with the diagnosis of MSSA bacteremia and cellulitis of the right hand. Patient presents with clinical signs and symptoms consistent with deconditioning related to acute medical issues and subsequent prolonged hospitalization. He has baseline balance and mobility deficits, and he additionally demonstrates fear avoidance behaviors today, all of which contribute to increased fall risk. He requires skilled PT intervention on a daily basis to address these issues and to maximize safety and mobility to facilitate a safe return home once medically stable. He currently demonstrates the following impairment level findings: 1. Decreased LLE strength 2. Decreased balance with small WONG or dynamic movements 3. Decreased activity tolerance 4. Fear avoidance behaviors Impairments are contributing to the following functional limitations: 1. Unable to safely ambulate community distances 2. Unable to safely ambulate household distances independently 3. Unable to manage stairs 4. High fall risk Patient is assessed as Moderate 63314 complexity based on the following: History: 73 year old male with complicated medical history admitted for medical management of right hand cellulitis and MSSA bacteremia. He has been in acute care 11 days at time of evaluation and is at high risk for further loss of mobility and independence. Examination: functional limitations as noted above Presentation: evolving Decision Making: Moderate complexity Goals: Goals X1 week 1. Supine-Sit : independent 2. Sit-Supine independent 3. Sit-Stand independent 4. Stand-Sit independent 5. Bed-Chair independent with FWW 6. Chair-Bed independent with FWW 7. Gait : independent with FWW x 50' 8. Stairs: Patient able to manage 6 steps with single rail and supervision only Plan of Care/Treatment Plan: 1x/day, 7 days/week x 1 week. Plan of care has been reviewed with the MECHANICAL ORDNANCE ASSEMBLER providing the service under Physical Therapy direction. Initiate Physical Therapy intervention for strengthening, bed mobility, transfers, gait, stairs, balance training, use of assistive device. DISCHARGE RECOMMENDATIONS: Home without anticipated equipment needs. Will require ongoing strengthening and balance retraining through Home Health services TREATMENT CODE/TIME: 20 minutes ([id number]) Raquel Dial, PT, DPT [facility]
--- NOTE | 2018-05-12 10:17 | IN_ITS ---
Date of service: 05/12/18 Time of Service: 09:40 PT Notes Inpatient Physical Therapy Evaluation Date: 05/12/18 Referring Doctor: Dr. Soto PT Orders: PT CONSULT: eval and treat Precautions: fall, standard Patient Profile/Admitting Diagnosis: Patient admitted 05/02/18 due to MSSA bacteremia and right hand cellulitis. He transitioned from the ICU to Med Surg yesterday afternoon and is awaiting further cardiac testing today. PMHX: DONTAE, HTN, CAD with h/o STEMI 12/2017 and s/p AICD placement; CHF; DM; COPD Social History/Home Situation: Patient lives independently in an apartment in [place]. He has a significant other who is supportive. He is normally independent, and gets around without an assistive device. He admits to balance issues, and had been attending outpatient PT as recently as February 2018 to address this. Equipment Owned/DME: Has FWW, which he does not currently utilize Subjective: Kam states that he is not able to walk at this time due to feeling dizzy. He is awaiting testing and has been NPO since last evening. He does not feel confident in his ability to exert himself. He reports ongoing pain in his right hand, but otherwise has no pain complaints. States that he's been walking 1-2x/day with nursing, using a walker and being followed with a wheelchair. He thinks he could probably walk the length of the arenas (~100) if he did it in short bursts. States that he's limited by weakness and shortness of breath. Objective: General Observation: Sitting at EOB with nursing present. Patient has IV in LUE; no additional lines. Mental Status: A&Ox3. Pain: right hand pain (patient unable to quantify) ROM: Right Upper Extremity: Shoulder flexion 100 degrees. Elbow and wrist motion WFL. Left Upper Extremity: Shoulder flexion 100 degrees. Elbow and wrist motion WFL. Right Lower Extremity: Grossly WFL Left Lower Extremity: Grossly WFL Strength: Right Upper Extremity: Shoulder flexion 3-/5. Biceps 3/5 or greater. Puddler Helper is weak, but equal. Left Upper Extremity: Shoulder flexion 3-/5. Biceps 3/5 or greater. Puddler Helper is weak, but equal. Right Lower Extremity: Hip flexion 5/5. Quads 5/5. HS 4/5. Ankle DF 4+/5. Left Lower Extremity: Hip flexion 4/5, with reports of lateral hip pain. Quads 5/5. HS 4/5. Ankle DF 4+/5. Bed Mobility/Transfers: supine->sit: independent sit->supine: independent sit->stand: supervision stand->sit: supervision Gait: Patient refuses ambulation due to dizziness. He is able to statically stand x 3 minutes, although with reports of increasing dizziness. Balance: Static Sitting: Normal Dynamic Sitting: Normal Static Standing: Good Dynamic Standing: Fair Special Tests: Patient requires CG for small WONG standing, which he performs x 30 seconds with moderately increased sway, but no true LOB. He refuses SLS and partial tandem stance. Mobility Limitations Standardized Measure [facility] AM-PAC 6 clicks Basic Mobility Inpatient Short Form: Raw Score: 20 CMS Score: 36% Informed Consent/Education: Patient instructed in purpose of PT consult and plan of care. Assessment: Patient is a 73 year old male referred to physical therapy services with the diagnosis of MSSA bacteremia and cellulitis of the right hand. Patient presents with clinical signs and symptoms consistent with deconditioning related to acute medical issues and subsequent prolonged hospitalization. He has baseline balance and mobility deficits, and he additionally demonstrates fear avoidance behaviors today, all of which contribute to increased fall risk. He requires skilled PT intervention on a daily basis to address these issues and to maximize safety and mobility to facilitate a safe return home once medically stable. He currently demonstrates the following impairment level findings: 1. Decreased LLE strength 2. Decreased balance with small WONG or dynamic movements 3. Decreased activity tolerance 4. Fear avoidance behaviors Impairments are contributing to the following functional limitations: 1. Unable to safely ambulate community distances 2. Unable to safely ambulate household distances independently 3. Unable to manage stairs 4. High fall risk Patient is assessed as Moderate [id number] complexity based on the following: History: 73 year old male with complicated medical history admitted for medical management of right hand cellulitis and MSSA bacteremia. He has been in acute care 11 days at time of evaluation and is at high risk for further loss of mobility and independence. Examination: functional limitations as noted above Presentation: evolving Decision Making: Moderate complexity Goals: Goals X1 week 1. Supine-Sit : independent 2. Sit-Supine independent 3. Sit-Stand independent 4. Stand-Sit independent 5. Bed-Chair independent with FWW 6. Chair-Bed independent with FWW 7. Gait : independent with FWW x 50' 8. Stairs: Patient able to manage 6 steps with single rail and supervision only Plan of Care/Treatment Plan: 1x/day, 7 days/week x 1 week. Plan of care has been reviewed with the YEAST CAKE CUTTER providing the service under Physical Therapy direction. Initiate Physical Therapy intervention for strengthening, bed mobility, transfers, gait, stairs, balance training, use of assistive device. DISCHARGE RECOMMENDATIONS: Home without anticipated equipment needs. Will require ongoing strengthening and balance retraining through Home Health services TREATMENT CODE/TIME: 20 minutes ([id number]) Raquel Dial, PT, DPT [facility]
--- NOTE | 2018-05-12 10:44 | PDOC.CMPRO ---
Care Management Progress Note S/O: Kam remains on IV antibiotics and cardiac monitoring on the MED/SURG floor. He met with Dr. Smiley today for palliative consult to discuss goals of care; please refer to her note for further information. Kam worked with PT today; report includes recommendations for ongoing strengthening and balance retraining through Home Health services. CM will continue to follow. A: 73 y/o male admitted 05/02/18 for acute renal insufficiency P: Kam will continue to be closely monitored with Sepsis-MSSA bacteremia, DONTAE with chronic kidney disease, CAD and CHF as well as DM and COPD. He will have a repeat ortho consult tomorrow to inform discharge planning considerations. CM will continue to follow, anticipate his significant other Mine will transport when ready.
--- NOTE | 2018-05-12 13:13 | OT.INIE ---
Occupational Therapy Notes Inpatient Occupational Therapy Evaluation Date: 05/12/18 Referring Doctor:Lazara Soto MD OT Orders: Eval and Treat Precautions: Standard. PATIENT PROFILE/ADMITTING DIAGNOSIS: Pt is a 73 year old male who was admitted through the ER on 05/02/18 for chest pain and RLL pneumonia. Past Medical History: STEMI (ST elevation myocardial infarction) (Chronic) Sleep apnea (Chronic 12/28/15) Sciatica of left side (Chronic 03/26/16) Primary osteoarthritis involving multiple joints (Chronic 01/04/16) Pain in lower limb (Chronic 02/18/89) Nonallergic rhinitis (Resolved 01/28/15) Leg pain, left (Chronic 01/17/16) Left lumbar radiculopathy (Chronic 10/26/16) Hypertriglyceridemia (Chronic 12/31/14) Dyspnea on exertion (Chronic 09/20/15) Distal paresthesia (Chronic 02/16/14) DM w/o complication type II, uncontrolled (Chronic 11/12/13) DM neuro manif type II (Chronic) Chronic pain disorder (Chronic 10/26/16) Chronic obstructive pulmonary disease (Chronic 01/21/17) Adjustment disorder, unspecified (Resolved 09/03/16) Acute gastroenteritis (Resolved) Aortic stenosis (Resolved) Discharge planning issues (Resolved) Lumbar back pain with radiculopathy affecting left lower extremity (Chronic) Neuropathy, lateral femoral cutaneous nerve (Chronic) Influenza with respiratory manifestations (Resolved 04/16/14) Diabetes mellitus, type II (Chronic) Hypertension (Chronic) Hyperlipidemia (Chronic) Obesity (Chronic) Peripheral neuropathy (Chronic) Weakness (Chronic 04/16/14) s/p respiratory failure (Chronic 04/16/14) s/p mechanical ventilation (Chronic 04/16/14) Encounter for physical therapy (Chronic 04/16/14) H/O surgical procedure (Chronic) Biopsy Skin of left latter day (12/10/14) Central line for TPN (03/31/14) Social History/Home Situation: Pt lives in [place] in a handicap apartment. He reports that prior to admission he was completely (I) in all ADLs/IADLs. 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 He reports that he has RCT 2x/month for any longer trips that he needs to make. He has a home in [place] but he is unable to visit due to this. He reports that he does have a girlfriend. Pt states that she does not help him with anything and it seems like he takes care of her rather than her taking care of him. Equipment owned/DME: Pt lives in a handicap apartment with all DME needed. SUBJECTIVE: Pt was sitting on side of his bed when OT arrived. He was agreeable to OT consult and reports that he typically sees [facility] PT in outpatient for any issues that he has. Pt is upset that he is suppose to go for testing and he does not know what time. He mentions this multiple times throughout session and states that he just wants to sleep so he doesn't have to think about being here. OBJECTIVE: General Observation: Pt was slightly agitated about testing, he did answer questions appropriately. Mental Status: A&Ox3 ROM: RUE AROM shoulder WFL, elbow WNL, hand and wrist WNL L UE AROM shoulder WFL, elbow WNL, hand and wrist WNL STRENGTH: RUE Shoulder flexion 3+/5, bicep 4/5, tricep 4/5, street car mechanic is weak LUE Shoulder flexion 3+/5, bicep 3+/5, tricep 3+/5, street car mechanic is weak FUNCTIONAL MOBILITY/ADLS: Pt was not willing to perform at todays session. He was upset that he was supposed to have a test this morning and that it had not been performed yet. He also reports that he would rather get back into bed and sleep so he doesn't have to think about what is happening to him at this time. Pt reports that he is extremely weak and needs to get stronger so he can get out of the hospital as soon as possible. BALANCE: Static sitting Normal Dynamic Sitting Normal Static Standing NT Dynamic Standing NT SPECIAL TESTS: Daily Activity Limitations Standardized Measure [facility] AM -PAC ?6 clicks? Daily Activity Inpatient Short Form: Raw score: 22 Standardized score: 47.10 CMS score: 25.80% INFORMED CONSENT/EDUCATION: Pt instructed in purpose of OT Consult and plan of care. ASSESSMENT: Patient is a 73-year-old male referred to occupational therapy services with diagnosis of chest pain and RLL pneumonia. Patient presents with clinical signs and symptoms consistent with dx, as demonstrated by the following impairment level findings: Decreased (B) UE strength for gross and fine motor control during ADL routines, decreased functional activity tolerance, significant PMHx. Impairments are contributing to the following functional limitations: ADL/IADL and leisure impairment, limited functional activity tolerance, decreased functional (I). AMPAC score AMPAC score 22, CMS score 25.80% Patient is assessed as a Moderate 36107 complexity based on the following: History: See Above Examination: See Above Presentation: Evolving Decision Making: AMPAC score 22, CMS score 25.80% GOALS Goals x1 week in hospital setting. 1. Transfers (I) 2. Dressing In sitting position (I) UE/LE dressing 3. Bathing Standing at sink pt will be (I) in bathing routine 4. Toileting on toilet (I) 5. Eating (I) 6. Grooming (I) with brushing teeth and hair standing at sink. PLAN OF CARE/TREATMENT PLAN: 1x/day, 5 days/ week x 1week Initiate Occupational Therapy Services for bathing, dressing, grooming, toileting, eating, transfer training. DISCHARGE RECOMMENDATIONS Home with home health services for increased strengthening to increase (I) in functional activities when medically cleared per MD. TREATMENT TIME/MINUTES/CODES 51470, 25 minutes (08:50) Lois Hua OTR/[facility]
--- NOTE | 2018-05-12 13:30 | OTIE_ITS ---
Occupational Therapy Notes Inpatient Occupational Therapy Evaluation Date: 05/12/18 Referring Doctor:Lazara Soto MD OT Orders: Eval and Treat Precautions: Standard. PATIENT PROFILE/ADMITTING DIAGNOSIS: Pt is a 73 year old male who was admitted through the ER on 05/02/18 for chest pain and RLL pneumonia. Past Medical History: STEMI (ST elevation myocardial infarction) (Chronic) Sleep apnea (Chronic 12/28/15) Sciatica of left side (Chronic 03/26/16) Primary osteoarthritis involving multiple joints (Chronic 01/04/16) Pain in lower limb (Chronic 02/18/89) Nonallergic rhinitis (Resolved 01/28/15) Leg pain, left (Chronic 01/17/16) Left lumbar radiculopathy (Chronic 10/26/16) Hypertriglyceridemia (Chronic 12/31/14) Dyspnea on exertion (Chronic 09/20/15) Distal paresthesia (Chronic 02/16/14) DM w/o complication type II, uncontrolled (Chronic 11/12/13) DM neuro manif type II (Chronic) Chronic pain disorder (Chronic 10/26/16) Chronic obstructive pulmonary disease (Chronic 01/21/17) Adjustment disorder, unspecified (Resolved 09/03/16) Acute gastroenteritis (Resolved) Aortic stenosis (Resolved) Discharge planning issues (Resolved) Lumbar back pain with radiculopathy affecting left lower extremity (Chronic) Neuropathy, lateral femoral cutaneous nerve (Chronic) Influenza with respiratory manifestations (Resolved 04/16/14) Diabetes mellitus, type II (Chronic) Hypertension (Chronic) Hyperlipidemia (Chronic) Obesity (Chronic) Peripheral neuropathy (Chronic) Weakness (Chronic 04/16/14) s/p respiratory failure (Chronic 04/16/14) s/p mechanical ventilation (Chronic 04/16/14) Encounter for physical therapy (Chronic 04/16/14) H/O surgical procedure (Chronic) Biopsy Skin of left anabaptism (12/10/14) Central line for TPN (03/31/14) Social History/Home Situation: Pt lives in [place] in a handicap apartment. He reports that prior to admission he was completely (I) in all ADLs/IADLs. 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 He reports that he has RCT 2x/month for any longer trips that he needs to make. He has a home in [place] but he is unable to visit due to this. He reports that he does have a girlfriend. Pt states that she does not help him with anything and it seems like he takes care of her rather than her taking care of him. Equipment owned/DME: Pt lives in a handicap apartment with all DME needed. SUBJECTIVE: Pt was sitting on side of his bed when OT arrived. He was agreeable to OT consult and reports that he typically sees [facility] PT in outpatient for any issues that he has. Pt is upset that he is suppose to go for testing and he does not know what time. He mentions this multiple times throughout session and states that he just wants to sleep so he doesn't have to think about being here. OBJECTIVE: General Observation: Pt was slightly agitated about testing, he did answer questions appropriately. Mental Status: A&Ox3 ROM: RUE AROM shoulder WFL, elbow WNL, hand and wrist WNL L UE AROM shoulder WFL, elbow WNL, hand and wrist WNL STRENGTH: RUE Shoulder flexion 3+/5, bicep 4/5, tricep 4/5, illusionist is weak LUE Shoulder flexion 3+/5, bicep 3+/5, tricep 3+/5, illusionist is weak FUNCTIONAL MOBILITY/ADLS: Pt was not willing to perform at todays session. He was upset that he was supposed to have a test this morning and that it had not been performed yet. He also reports that he would rather get back into bed and sleep so he doesn't have to think about what is happening to him at this time. Pt reports that he is extremely weak and needs to get stronger so he can get out of the hospital as soon as possible. BALANCE: Static sitting Normal Dynamic Sitting Normal Static Standing NT Dynamic Standing NT SPECIAL TESTS: Daily Activity Limitations Standardized Measure [facility] AM -PAC ?6 clicks? Daily Activity Inpatient Short Form: Raw score: 22 Standardized score: 47.10 CMS score: 25.80% INFORMED CONSENT/EDUCATION: Pt instructed in purpose of OT Consult and plan of care. ASSESSMENT: Patient is a 73-year-old male referred to occupational therapy services with diagnosis of chest pain and RLL pneumonia. Patient presents with clinical signs and symptoms consistent with dx, as demonstrated by the following impairment level findings: Decreased (B) UE strength for gross and fine motor control during ADL routines, decreased functional activity tolerance, sign ificant PMHx. Impairments are contributing to the following functional limitations: ADL/IADL and leisure impairment, limited functional activity tolerance, decreased functional (I). AMPAC score AMPAC score 22, CMS score 25.80% Patient is assessed as a Moderate 94227 complexity based on the following: History: See Above Examination: See Above Presentation: Evolving Decision Making: AMPAC score 22, CMS score 25.80% GOALS Goals x1 week in hospital setting. 1. Transfers (I) 2. Dressing In sitting position (I) UE/LE dressing 3. Bathing Standing at sink pt will be (I) in bathing routine 4. Toileting on toilet (I) 5. Eating (I) 6. Grooming (I) with brushing teeth and hair standing at sink. PLAN OF CARE/TREATMENT PLAN: 1x/day, 5 days/ week x 1week Initiate Occupational Therapy Services for bathing, dressing, grooming, toileting, eating, transfer training. DISCHARGE RECOMMENDATIONS Home with home health services for increased strengthening to increase (I) in functional activities when medically cleared per MD. TREATMENT TIME/MINUTES/CODES 02342, 25 minutes (08:50) GREGORIO Herman/[facility]
--- NOTE | 2018-05-12 13:45 | MERGE_ITS ---
*[facility]* *[facility]* [address] [place] [address] Date of study: 05/12/2018 Transesophageal Echocardiography 2D, spectral Doppler, and color Doppler *STUDY CONCLUSIONS* Summary: 1. Left ventricle: Systolic function was normal. The estimated ejection fraction was 60-65%. 2. Aortic valve: A prosthesis was present . The sewing ring appeared normal, had no rocking motion, and showed no evidence of dehiscence. No paravalvular leak. No abscess appreciated. No evidence of vegetation. 3. Mitral valve: No evidence of vegetation. There was mild regurgitation. 4. Left atrium: No evidence of thrombus in the atrial cavity or appendage. There was spontaneous echo contrast (smoke). The appendage was well visualized and of normal size. Emptying velocity was reduced. 5. Right ventricle: Pacer wire or catheter noted in right ventricle, no vegetation appreciated.. 6. Atrial septum: No defect or patent foramen ovale was identified by color flow Doppler or agitated saline. There was no atrial level shunt. *PATIENT PRESENTATION* Height: 167.6cm ((66in) ) S/D Pressure: 160 / 78 Weight: 88kg ((193.6lb) ) BSA: 2.05m^2 PERFORMING Unknown ORDERING Irving Mercado REFERRING Irving Mercado PERFORMING [facility] FIRE APPARATUS SPRINKLER INSPECTOR RT Omero (R)(CT), SAGAR CONSULTING Tien Galicia *PROCEDURE DATA* Procedure information: The patient was identified by two identifiers. This study was interpreted by [facility]. Pertinent images and digital data are archived for permanent storage and are available for subsequent review. Study status: Routine. Diagnostic transesophageal echocardiography. 2D, spectral Doppler, and color Doppler. Consent: The risks, benefits, and alternatives to the procedure were explained to the patient and consent was verbally obtained. Barriers to education: No barriers to education identified. Initial setup. The patient was brought to the laboratory in the fasting state. Surface ECG leads, blood pressure measurements, and pulse oximetric signals were monitored. Sedation. Moderate sedation was administered . A Transesophageal echocardiogram was performed. Topical anesthesia was obtained using viscous lidocaine. Image quality was good. A total amount of 10ml of saline was used.The transesophageal probe was removed. Study completion: The patient tolerated the procedure well. There was no blood loss or specimens removed during the procedure. There were no complications. History: PMH: MSSA bacteremia, hx TVAR, ACID in place. *CARDIAC ANATOMY* Left ventricle: Systolic function was normal. The estimated ejection fraction was 60-65%. Aortic valve: A prosthesis was present . The sewing ring appeared normal, had no rocking motion, and showed no evidence of dehiscence. No paravalvular leak. No abscess appreciated. Cusp separation was normal. No evidence of vegetation. Doppler: There was no regurgitation. Aorta: There was mild, moderately diffuse atheromatous plaque. Mitral valve: No evidence of vegetation. Doppler: There was mild regurgitation. Left atrium: No evidence of thrombus in the atrial cavity or appendage. There was spontaneous echo contrast (smoke). The appendage was well visualized and of normal size. Emptying velocity was reduced. Atrial septum: No defect or patent foramen ovale was identified by color flow Doppler or agitated saline. There was no atrial level shunt. Right ventricle: Pacer wire or catheter noted in right ventricle, no vegetation appreciated.. Right atrium: Pacer wire or catheter noted in right atrium. No vegetation appreciated. I have personally reviewed the images and have reviewed and edited the reported findings. Electronically signed by Patrick Warner MD 05/12/2018 16:27
[2018-05-12] MEDS: Lactated Ringers 1,000 ML 50 ML IV (13:48)
[2018-05-12] MEDS: Lidocaine 2% Viscous 15 ML CUP PO (13:50)
--- NOTE | 2018-05-12 14:09 | W.PALLCONSUL ---
Date of service: 05/12/18 History of Present Illness Chief Complaint: goals of care Narrative: I met with Kam the morning before his CASSI to assess whether he has endocarditis from his MSSA bacteremia. He said I am very depressed. I don't want to be here. He was admitted 04/25. He feels overwhelmed by testing and studies. All of his family lives in [place], where he is from. He has a local ex-girlfriend, Mine, whom he feels contributes to his stress. He reports When I got sick last time, I got sick because I got run down by caring for Mine. He says now she helps take care of his 18 yo dog, but he doesn't want her involved in any other way with him. He hates not having someone near-by to help him. At the same time, he says he cannot live in [place]; subsidized housing in [place] is more affordable. His cousin, whom he reports is a retired doctorate level nurse, helps him make his medical decisions. He tells me she would be irate to learn that he, as a diabetic, has had to wait all day for his CASSI scheduled for 2 pm. He has been NPO all day and feels woozy and light-headed. He appreciated Dr Soto's in-depth explanations of what she was doing to work him up. He repeats to me that I don't want to go to [facility]. He will do what he has to do as long as he can stay at [facility]. He accepts needing several weeks or IV antibiotics. He is not sure whether PT thinks he needs Rehab. He won't go to [facility]. He doesn't want to go to a SNF in [place] either. Nursing reports that he is a stand-by assist only. When I was with him, he got up to the toilet by himself, using his walker. Physically, he is doing okay. He still is mad that his infection is from his IV site. Consults Consult date: 05/12/18 Requesting physician: Lazara Soto Assessment and Plan (1) Palliative care patient: Current visit: Yes Status: Chronic Has clear ideas about what he would like. Wants to stay at [facility] as swing bed patient as he needs long-term IV abx. Wants to stay physically active. Afraid of losing independence that would allow him to live alone with his dog. Wants to stay in [place] due to financial reasons. Recognizes that he likely will need to return to [place] at the end of his life (not now). Would consider treatment for depression/anxiety. Wants to think about it. Appreciates the lengthy explanations and extra time given him by Dr Soto. (2) Cellulitis of right hand: Current visit: Yes Status: Acute Wants to stay at [facility] on swing bed status for IV abx. (3) MSSA bacteremia: Current visit: Yes Status: Acute See above. CASSI showed no vegetation. Not sure if he wants AICD out or not. Needs more time and input from cousin. (4) Fever: Current visit: Yes Status: Acute He didn't mention it to me during my exam. Note by Dr Soto. DUe to his recurrent temp spikes, may need to have AICD device out and re-implanted, if he wishes. Review of Systems Constitutional Reports body ache(s), Reports fatigue, Reports fever(s) and Reports weakness Comments: fever to 38.4 on evening of 05/11 Eyes Reports requires corrective lenses ENT Reports dry mouth Cardiovascular Reports lightheadedness and Reports dyspnea on exertion Respiratory Reports dyspnea on exertion Gastrointestinal Reports constipation Genitourinary Reports difficulty urinating Musculoskeletal Reports muscle weakness Integumentary/Breasts Reports lesions, Reports erythema and Reports skin swelling Comments: dorsum of right hand, former IV site, still painful and swollen presumed nidus of infection Neurologic Reports weakness Psychiatric Reports anxiety, Reports depression, Reports hopelessness and Reports irritability Endocrine Reports fatigue Hematologic/Lymphatic Reports easy bruising [facility] Medical History Palliative care patient (Chronic) Cellulitis of right hand (Acute) MSSA bacteremia (Acute) STEMI (ST elevation myocardial infarction) (Chronic) Sleep apnea (Chronic 12/28/15) Sciatica of left side (Chronic 03/26/16) Primary osteoarthritis involving multiple joints (Chronic 01/04/16) Pain in lower limb (Chronic 02/18/89) Nonallergic rhinitis (Resolved 01/28/15) Leg pain, left (Chronic 01/17/16) Left lumbar radiculopathy (Chronic 10/26/16) Hypertriglyceridemia (Chronic 12/31/14) Dyspnea on exertion (Chronic 09/20/15) Distal paresthesia (Chronic 02/16/14) DM w/o complication type II, uncontrolled (Chronic 11/12/13) DM neuro manif type II (Chronic) Chronic pain disorder (Chronic 10/26/16) Chronic obstructive pulmonary disease (Chronic 01/21/17) Adjustment disorder, unspecified (Resolved 09/03/16) Acute gastroenteritis (Resolved) Aortic stenosis (Resolved) Discharge planning issues (Resolved) Lumbar back pain with radiculopathy affecting left lower extremity (Chronic) Neuropathy, lateral femoral cutaneous nerve (Chronic) Influenza with respiratory manifestations (Resolved 04/16/14) Diabetes mellitus, type II (Chronic) Hypertension (Chronic) Hyperlipidemia (Chronic) Obesity (Chronic) Peripheral neuropathy (Chronic) Weakness (Chronic 04/16/14) s/p respiratory failure (Chronic 04/16/14) s/p mechanical ventilation (Chronic 04/16/14) Encounter for physical therapy (Chronic 04/16/14) Surgical History H/O surgical procedure (Chronic) Biopsy Skin of left sabianist (12/10/14) Central line for TPN (03/31/14) Family History Mother Stroke Father No problems noted. Brother No problems noted. Social History Smoking/Tobacco Use Status: Current-Occasional Tobacco Type: cigarettes and cigars Tobacco: How many years used: 60 Quit status: considering quitting Counseling given: counseling >3 minutes Alcohol Intake: former Drug use: Never Substance use type: does not use Caregiver/Support person: No Household members: none Housing: apartment Number of Children: 0 Communication Needs: Corrective Lenses Education Level: high school Do you need help understanding health information?: Often Pets and animals: Yes Pets and animals: dog(s) What is your relationship status?: never How often do you talk on the phone with friends or family?: twice per week How often do you get together with friends or relatives?: once per week Panel score (0-1 are the most socially isolated patients): 1 What type of physical activity do you participate in: bicycling and other Details: stationary bike Duration: 15-30 minutes/day Frequency: 5-6 times per week Agree to transfusion: Yes Seatbelt use: always Drive intox or ride w/intox mixer driver: No Water heater temp set <120 deg: Yes Working smoke detector in home: Yes Fire extinguisher in home: Yes Carbon monox detector in home: Yes Do you feel safe at home: Yes Do you feel safe in your relationship?: Yes Exam Const General: cooperative and anxious Nutritional Appearance: obese Orientation: alert, awake and oriented x3 HENMT Head: normocephalic and atraumatic Ears: hearing grossly normal bilaterally General nose exam: external nose normal Face and sinus: dry mucous membranes Eyes Conjunctivae: conjunctivae normal Sclera: sclerae normal Neck Neck: no lymphadenopathy and no JVD Chest Chest: pacemaker (AICD) Resp Effort & Inspection: normal respiratory effort and able to speak in complete sentences Auscultation: clear to auscultation bilaterally Cardio Jugular venous pressure: no JVD Rate: regular rate Rhythm: regular rhythm Heart Sounds: click and murmur GI Inspection: obesity Palpation: soft Auscultation: normal bowel sounds Skin General skin exam: dry skin, ecchymosis and erythema Trauma: puncture Wounds: wounds noted (dorsum right hand and antecubital space left arm) Neuro General: alert, awake, oriented x3 and moves all extremities Cognition: normal cognition Speech: speech normal Gait: gait assisted Method: walker Extrem General: edema Right upper extremity: edema and hand Psych Appearance: grossly normal Mental Status: mental status grossly normal Speech and Movement: agitated Mood: anxious mood Affect: anxious affect Attitude: cooperative Thought Process: normal Insight: fair Judgment: fair Results Last Vital Signs Temp 99.3 F 05/12/18 13:33 Pulse 76 05/12/18 13:33 Resp 18 05/12/18 13:33 BP 160/84 H 05/12/18 13:33 Pulse Ox 95 05/12/18 13:33 Labs : 05/14/18 06:35 05/14/18 06:35 Laboratory Results - last 24 hr 05/12/18 05/12/18 07:21 07:21 WBC 7.37 RBC 3.57 L Hgb 10.5 L Hct 31.1 L MCV 87.1 MCH 29.4 MCHC 33.8 RDW 16.5 H Plt Count 285 MPV 9.8 Immature Gran % 1.2 Neutrophils % 51.9 Lymphocytes % 32.6 Monocytes % 11.4 Eosinophils % 2.4 Basophils % 0.5 Absolute Neutrophils 3.82 Absolute Lymphocytes 2.40 Absolute Monocytes 0.84 H Absolute Eosinophils 0.18 Absolute Basophils 0.04 Sodium 137 Potassium 3.6 Chloride 100 Carbon Dioxide 25.2 Anion Gap 11.8 H BUN 20 H Creatinine 1.49 H Estimated GFR/1.73 m2 46.23 Glucose 161 H Calcium 9.0 Magnesium 2.1 C-Reactive Protein 8.99 H
[2018-05-12] MEDS: Insulin Aspart 300 UNITS/3 ML PEN SC ×2 (15:00→17:05)
[2018-05-12] MEDS: Pantoprazole 40 MG VIAL IVP (15:33)
--- NOTE | 2018-05-12 17:20 | PGE_ITS ---
Date of Service Date of service: 05/12/18 Time of Service: 15:45 Assessment and Plan (1) Sepsis: Current visit: Yes Status: Acute with MSSA Bacteremia. Blood cx 05/06, 05/08 with growth; blood cx 05/10: NGTD. Portal of entry is likely the R hand lesion. S/p negative CASSI 05/12/18. Continue vancomycin/ancef. Will consult with ID about duration. Continue to trend CRP. (2) Cellulitis of right hand: Current visit: Yes Status: Acute Improved significantly. Will be seen by Dr Redman tomorrow, but I anticipate that he will not need an I&D. CT of the hand, there is no evidence of abscess/empyema. (3) MSSA bacteremia: Current visit: No Status: Acute As above. Continue cefazolin (Day 3 since 1st negative blood culture); vancomycin (Day 3). No endocarditis per CASSI. Will discuss abx/duration with ID. (4) Fever: Current visit: Yes Status: Acute Part of SIRS. (5) Acute kidney injury superimposed on chronic kidney disease: Current visit: Yes Status: Acute Stable, likely prerenal. Creatinine currently at baseline. Continue to hold LAURA-I and Spironolactone and monitor. Continue PO lasix. (6) Hypertension: Current visit: No Status: Chronic Continue home dose of Carvedilol, PO lasix; monitor weight and renal function carefully. (7) CAD (coronary artery disease): Current visit: Yes Status: Chronic With reported STEMI with cardiac arrest 12/2017 - s/p AICD. No ACS on this admission. Continue ASA, statin, BB, fenofibrate. (8) CHF (congestive heart failure): Current visit: Yes Status: Chronic ICMO now with normalized ejection fraction, he is s/p AICD. Continue aspirin and statin therapy. Continue to hold laura-i and spironolactone. Continue lasix. Continue BB. CASSI negative. (9) Diabetes mellitus, type II: Current visit: No Status: Chronic Increase long acting insulin to 10 units QHS. No glipizide. Continue SSI. (10) Chronic pain disorder: Current visit: No Status: Chronic Continue home Oxycodone. (11) Chronic obstructive pulmonary disease: Current visit: No Status: Chronic At baseline - no change in tx. (12) Nausea & vomiting: Current visit: Yes Status: Resolved In setting of acute illness. CT a/p negative. Resolved. Continue to treat infection as above. (13) DVT prophylaxis: Current visit: Yes Status: Acute Resume SC heparin. Continue TEDs + SCD's. (14) Advance directive on file: Current visit: Yes Status: Acute DNR/DNI, but s/p AICD which is active. Palliative care consulted. Subjective Interval history since last seen: Pt is s/p CASSI today - normal. Tmax 38.4 yesterday at 19:05. States his hand feels better - less swelling and rendess is less intense. Denies dizziness, chest pain. States his shortness of breath is much better than it was before, but that it is present (at baseline). Denies nausea/vomiting. Agrees to be seen by Dr Redman (who will see the patient tomorrow). He met with palliative care today and stated he would not want to be transferred. Exam Narrative Exam Narrative: General: Obese male, sitting up in a chair, eating late lunch, appears to be looking better/be in a better mood. HEENT: EOMI, MMM Heart: RRR, + KARINA Lungs: crackles at B bases - improved GI: abdomen is soft, nontender, nondistended Extremities: dorsal surface of R hand with an erythematous lesion and surrounding erythema, spreading outside circumscribed borders, definitely improved since yesterday; no onbvious drainage. Full ROM of hand/fingers/wrist. Trace BLE edema, symmetric, improved. Objective Objective Clinical Data: Abnormal lab results 05/12/18 05/12/18 Range/Units 07:21 07:21 RBC 3.57 L (4.50-6.00) m/cumm Hgb 10.5 L (13.5-17.5) g/dL Hct 31.1 L (40.0-50.0) % RDW 16.5 H (11.8-14.1) % Absolute Monocytes 0.84 H (0.11-0.7) k/cumm Anion Gap 11.8 H (3-11) mmol/L BUN 20 H (7-18) mg/dL Creatinine 1.49 H (0.70-1.30) mg/dL Glucose 161 H (70-100) mg/dL C-Reactive Protein 8.99 H (0.0-0.3) mg/dL Vital Signs Temperature 37.2 C 05/12/18 15:52 Temperature Source Tympanic 05/12/18 15:52 Pulse 79 05/12/18 15:52 Pulse Rhythm Regular 05/12/18 08:51 Pulse 60 05/11/18 09:00 Respiratory Rate 18 05/12/18 15:52 Respiratory Effort 05/12/18 08:51 Respiratory Depth Normal 05/12/18 08:51 Respiratory Pattern Normal 05/12/18 08:51 Blood Pressure 162/82 H 05/12/18 15:52 Blood Pressure Mean 83 05/11/18 08:57 Blood Pressure Position Sitting 05/09/18 21:00 Pulse Oximetry 96 05/12/18 15:52 Oxygen Delivery Method Room Air 05/12/18 15:52 Oxygen Flow Rate 0 05/12/18 15:52 Fraction of Inspired Oxygen (FIO2) 30 05/07/18 09:56 Pain Level 6 05/12/18 15:02 Comment 05/09/18 14:00 Intake & Output 05/11/18 05/12/18 05/12/18 23:59 11:59 23:59 Intake Total 943.340 / 1493.340 100 / 1355 1255 / 1355 Output Total 1903 / 4803 513 / 513 Balance -959.660 / -3309.660 -413 / 842 1255 / 842 Weight 90.2 kg Intake: IV 483.340 / 833.340 100 / 875 775 / 875 Oral 460 / 660 0 / 480 480 / 480 Output: Urine 1903 / 4803 513 / 513 Other: Urine Color Yellow Yellow Urine Appearance Clear Clear Comment incontinent of a large amount of urine Stool Size Small Stool Characteristics Soft Voiding Methods Toilet Toilet Laboratory Results WBC 7.37 k/cumm (4.4-10.8) 05/12/18 07:21 RBC 3.57 m/cumm (4.50-6.00) L 05/12/18 07:21 Hgb 10.5 g/dL (13.5-17.5) L 05/12/18 07:21 Hct 31.1 % (40.0-50.0) L 05/12/18 07:21 MCV 87.1 fL (80-95) 05/12/18 07:21 MCH 29.4 pg (27.0-33.0) 05/12/18 07:21 MCHC 33.8 g/dL (32.0-36.0) 05/12/18 07:21 RDW 16.5 % (11.8-14.1) H 05/12/18 07:21 Plt Count 285 x1000/uL (130-400) 05/12/18 07:21 MPV 9.8 fL (8.0-11.0) 05/12/18 07:21 Immature Gran % 1.2 05/12/18 07:21 Neutrophils % 51.9 05/12/18 07:21 Lymphocytes % 32.6 05/12/18 07:21 Monocytes % 11.4 05/12/18 07:21 Eosinophils % 2.4 05/12/18 07:21 Basophils % 0.5 05/12/18 07:21 Absolute Neutrophils 3.82 k/cumm (1.2-6.7) 05/12/18 07:21 Absolute Lymphocytes 2.40 k/cumm (1.2-3.4) 05/12/18 07:21 Absolute Monocytes 0.84 k/cumm (0.11-0.7) H 05/12/18 07:21 Absolute Eosinophils 0.18 k/cumm (0.0-0.7) 05/12/18 07:21 Absolute Basophils 0.04 k/cumm (0.0-0.2) 05/12/18 07:21 PT 11.9 sec (9.3-11.0) H 05/02/18 10:35 INR 1.2 (0.9-1.1) H 05/02/18 10:35 APTT 28.5 sec (21.0-31.4) 05/08/18 09:15 Sodium 137 mmol/L (136-145) 05/12/18 07:21 Potassium 3.6 mmol/L (3.5-5.1) 05/12/18 07:21 Chloride 100 mmol/L (98-107) 05/12/18 07:21 Carbon Dioxide 25.2 mmol/L (21.0-32.0) 05/12/18 07:21 Anion Gap 11.8 mmol/L (3-11) H 05/12/18 07:21 BUN 20 mg/dL (7-18) H 05/12/18 07:21 Creatinine 1.49 mg/dL (0.70-1.30) H 05/12/18 07:21 Estimated GFR/1.73 m2 46.23 (mL/min/1.73m2) 05/12/18 07:21 Glucose 161 mg/dL (70-100) H 05/12/18 07:21 Lactate 1.1 mmol/l (0.6-1.4) 05/07/18 23:36 Calcium 9.0 mg/dL (8.5-10.1) 05/12/18 07:21 Magnesium 2.1 mg/dL (1.8-2.4) 05/12/18 07:21 Total Bilirubin 0.3 mg/dL (0.2-1.0) 05/02/18 10:35 AST 21 U/L (15-37) 05/02/18 10:35 ALT 27 U/L (12-78) 05/02/18 10:35 Alkaline Phosphatase 32 U/L (46-116) L 05/02/18 10:35 Troponin I 0.26 ng/mL (0.00-0.06) H* 05/08/18 13:02 C-Reactive Protein 8.99 mg/dL (0.0-0.3) H 05/12/18 07:21 Total Protein 7.1 g/dL (6.4-8.2) 05/02/18 10:35 NT-Pro-B Natriuret Pep 7642 pg/mL (-299) H 05/07/18 23:36 Albumin 3.9 g/dL (3.4-5.0) 05/02/18 10:35 Urine Color Yellow (Yellow) 05/05/18 15:30 Urine Clarity Clear 05/05/18 15:30 Urine pH 7.0 (5-8) 05/05/18 15:30 Ur Specific [place] 1.015 (1.005-1.025) 05/05/18 15:30 Urine Protein Negative mg/dL (Negative) 05/05/18 15:30 Urine Ketones Negative mg/dL (Negative) 05/05/18 15:30 Urine Blood Negative (Negative) 05/05/18 15:30 Urine Nitrite Negative (Negative) 05/05/18 15:30 Urine Bilirubin Negative (Negative) 05/05/18 15:30 Urine Urobilinogen 0.2 EU/dL (Up TO 0.2) 05/05/18 15:30 Ur Leukocyte Esterase Negative (Negative) 05/05/18 15:30 Urine Glucose 100 mg/dL (Negative) 05/05/18 15:30 Specimen Type Nasopharyngeal 05/06/18 19:05 Influenza Type A RNA Negative (Negative) 05/06/18 19:05 Influenza Type B RNA Negative (Negative) 05/06/18 19:05 RSV RNA Qual (PCR) Negative (Negative) 05/06/18 19:05
[2018-05-12] MEDS: Acetaminophen 325 MG TAB PO (20:01)
[2018-05-12] MEDS: oxyCODONE 10 MG TAB PO (21:23)
[2018-05-12] MEDS: Mirtazapine 15 MG TAB PO (21:24)
[2018-05-12] MEDS: Normal Saline 500 ML 30 ML IV (21:25)
[2018-05-12] MEDS: Heparin 5,000 UNITS/ML VIAL 5000 UNITS SC (23:15)
[2018-05-13] VITALS (7 sets, daily range): BP systolic 124–180; BP diastolic 63–85; PULSE 65–72; RESP 18–19; TEMP 36–37.1; O2SAT 93–95
[2018-05-13] MEDS: Acetaminophen 325 MG TAB PO ×2 (05:47→16:06)
[2018-05-13 07:37] LABS: Abs Immature Grans 0.11 k/cumm (0.0-0.09); Absolute Basophil Count 0.05 k/cumm (0.0-0.2); Absolute Eosinophil Count 0.24 k/cumm (0.0-0.7); Absolute Monocyte Count 0.77 k/cumm (0.11-0.7); Absolute Neutrophil Count 3.59 k/cumm (1.2-6.7); Basophils % 0.7; Eosinophils % 3.4; HCT 31.1 % (40.0-50.0); HGB 10.3 g/dL (13.5-17.5); Immature Grans % 1.6; Lymphocytes % 32.6; Mean Corp. HGB Concentration 33.1 g/dL (32.0-36.0); Mean Corpuscular Volume 87.6 fL (80-95); Mean Platelet Volume 9.7 fL (8.0-11.0); Monocytes % 10.9; Neutrophils % 50.8; Platelet Count 313 x1000/uL (130-400); RBC 3.55 m/cumm (4.50-6.00); RBC Distribution Width 16.8 % (11.8-14.1); White Blood Cell Count 7.06 k/cumm (4.4-10.8)
[2018-05-13 07:45] LABS: Anion Gap 9.2 mmol/L (3-11); BUN 22 mg/dL (7-18); CO2 28.8 mmol/L (21.0-32.0); CREATININE 1.45 mg/dL (0.70-1.30); Calcium 9.3 mg/dL (8.5-10.1); Chloride 101 mmol/L (98-107); Estimated GFR 47.71 (mL/min/1.73m2); Glucose 156 mg/dL (70-100); Magnesium 2.2 mg/dL (1.8-2.4); Potassium 3.8 mmol/L (3.5-5.1); Sodium 139 mmol/L (136-145)
[2018-05-13] MEDS: Heparin 5,000 UNITS/ML VIAL 5000 UNITS SC ×3 (07:57→23:48)
[2018-05-13] MEDS: Insulin Aspart 300 UNITS/3 ML PEN SC ×3 (07:58→17:14)
[2018-05-13] MEDS: Fluticasone NASAL SPRAY 16 GM BTL NS (07:58)
[2018-05-13] MEDS: Magnesium Oxide 400 MG TAB PO ×2 (07:58→19:57)
[2018-05-13] MEDS: CARVEDILOL 12.5 MG TAB PO ×2 (07:58→19:57)
[2018-05-13] MEDS: Fenofibrate, Micronized 145 MG TAB PO (07:58)
[2018-05-13] MEDS: Aspirin E.C. 81 MG TABEC PO (07:58)
[2018-05-13] MEDS: Atorvastatin 20 MG TAB 60 MG PO (07:58)
[2018-05-13] MEDS: Furosemide 40 MG TAB PO ×2 (07:59→15:50)
--- NOTE | 2018-05-13 08:52 | CMPROGNOTE_ITS ---
- If Service Date Differs Date of service: 05/13/18 Time of Service: 08:52 Care Management Progress Note S/O: Kam is sitting up in bed when this writer editor visits, he is receptive to discussion. PONCHO discussed potential SNF placement with Kam today, and he states that he would not go to [facility] or [facility]. Kam does state that he wants to remain locally. CM discussed his SO Mine and him wanting to no longer have her go to his home, he states that he spoke with PONCHO Mckee, about this and is awaiting further discussion with her. Kam states that he has 13 steps into his home, and that he has a dog that he is worried about how he is going to take care of his dog, and get up his stairs. PONCHO attempted to further discuss SNF placement, however Kam's lunch came at that time and he wanted to eat. A: 73 y/o male admitted 05/02/18 for acute renal insufficiency P: Kam will continue to be closely monitored with Sepsis-MSSA bacteremia, DONTAE with chronic kidney disease, CAD and CHF as well as DM and COPD. He will have a repeat ortho consult today to inform discharge planning considerations. CM will continue to follow.
[2018-05-13] MEDS: Fluticasone-Umeclidin-Vilanter [Trelegy Ellipta] IH (09:19)
[2018-05-13 10:07] LABS: C-Reactive Protein 7.28 mg/dL (0.0-0.3)
--- NOTE | 2018-05-13 10:31 | PT.INTREAT ---
Date of service: 05/13/18 Time of Service: 11:16 PT Notes Inpatient Physical Therapy Treatment Note [facility] Date: 05/13/18 PRECAUTIONS: Fall SUBJECTIVE: Kam states that he is feeling significantly better than he was yesterday. He is worried that he is going to need more rehab prior to returning home, expresses concern regarding where he will receive this rehab. He is agreeable to participating in PT. OBJECTIVE: PAIN: Patient complained of left-sided gluteal pain with ther ex. BED MOBILITY/TRANSFERS Sit-supine: I with HOB at 40 degrees Sit-stand: I Stand-sit: I Chair-bed: S without AD GAIT Assistive Device: FWW Weight bearing: Full Assist: S Distance: 150' Deviation: Slow pace THEREX: Patient completed a standing lower extremity strengthening program, as per flow sheet. Patient utilized FWW for UE and balance support with exercises. Patient also completed functional sit?to?stand exercise without UE assist. STAIRS: Refused ASSESSMENT: Patient tolerated session well with minimal complaints of left sided gluteal pain with ther ex. Patient also complained of SOB with activity. Requiring frequent rest breaks between exercises. Patient was able to tolerate a progression in gait distance with FWW support and supervision. Patient would benefit from continued gait and transfer training as well as strengthening for improved activity tolerance. PLAN: Continue with PTs POC TREATMENT CODE/TIME: 30 minutes; 40028, [id number]
--- NOTE | 2018-05-13 11:21 | PTTR_ITS ---
Date of service: 05/13/18 Time of Service: 11:16 PT Notes Inpatient Physical Therapy Treatment Note [facility] Date: 05/13/18 PRECAUTIONS: Fall SUBJECTIVE: Kam states that he is feeling significantly better than he was yesterday. He is worried that he is going to need more rehab prior to returning home, expresses concern regarding where he will receive this rehab. He is agreeable to participating in PT. OBJECTIVE: PAIN: Patient complained of left-sided gluteal pain with ther ex. BED MOBILITY/TRANSFERS Sit-supine: I with HOB at 40 degrees Sit-stand: I Stand-sit: I Chair-bed: S without AD GAIT Assistive Device: FWW Weight bearing: Full Assist: S Distance: 150' Deviation: Slow pace THEREX: Patient completed a standing lower extremity strengthening program, as per flow sheet. Patient utilized FWW for UE and balance support with exercises. Patient also completed functional sit?to?stand exercise without UE assist. STAIRS: Refused ASSESSMENT: Patient tolerated session well with minimal complaints of left sided gluteal pain with ther ex. Patient also complained of SOB with activity. R equiring frequent rest breaks between exercises. Patient was able to tolerate a progression in gait distance with FWW support and supervision. Patient would benefit from continued gait and transfer training as well as strengthening for improved activity tolerance. PLAN: Continue with PTs POC TREATMENT CODE/TIME: 30 minutes; 13120, [id number]
--- NOTE | 2018-05-13 11:36 | OT.INTREAT ---
Date of service: 05/13/18 Time of Service: 08:40 Occupational Therapy Notes Occupational Therapy Inpatient Treatment Note Date: 05/13/18 PRECAUTIONS: Fall, standard SUBJECTIVE: Pt was sitting on side of the bed, he was agreeable to OT session and reports that he feels a little better now that his testing is done. OBJECTIVE: PAIN:no c/o pain . FUNCTIONAL MOBILITY Sit-stand: S, FWW Stand-sit: S, FWW Bed-Chair: S, FWW Chair-bed: S, FWW BATHING: Sitting on side of the bed with max (A) set up Upper Body: (I) face, (B) UE and abdomen, max (A) back, hair washed with SANE NURSE pt is functionally able to reach head to perform this. Lower Body: (I) upper thighs, mod (A) (B) feet DRESSING: Sitting on side of the bed Upper Extremity: (I) donning and doffing hospital gown Lower Extremity: (I) donning and doffing (B) socks with min vc GROOMING: Sitting on side of the bed, max (A) set up, (I) with brushing teeth and hair TOILETING: Device: Toilet Assist: (I) ASSESSMENT/PLAN: Pt is demonstrating a significant increase in (I) in ADL routines in the sitting position. He is visibly tired after OT session but was much more receptive to performing ADLs today. Pt would benefit from continued skilled OT intervention for progression of ADLs to standing position and education on energy conservation techniques. TREATMENT CODES/TIME: [id number], 35 minutes (08:40) [facility]
--- NOTE | 2018-05-13 11:45 | OTTR_ITS ---
Date of service: 05/13/18 Time of Service: 08:40 Occupational Therapy Notes Occupational Therapy Inpatient Treatment Note Date: 05/13/18 PRECAUTIONS: Fall, standard SUBJECTIVE: Pt was sitting on side of the bed, he was agreeable to OT session and reports that he feels a little better now that his testing is done. OBJECTIVE: PAIN:no c/o pain . FUNCTIONAL MOBILITY Sit-stand: S, FWW Stand-sit: S, FWW Bed-Chair: S, FWW Chair-bed: S, FWW BATHING: Sitting on side of the bed with max (A) set up Upper Body: (I) face, (B) UE and abdomen, max (A) back, hair washed with LOTTERY CLERK pt is functionally able to reach head to perform this. Lower Body: (I) upper thighs, mod (A) (B) feet DRESSING: Sitting on side of the bed Upper Extremity: (I) donning and doffing hospital gown Lower Extremity: (I) donning and doffing (B) socks with min vc GROOMING: Sitting on side of the bed, max (A) set up, (I) with brushing teeth and hair TOILETING: Device: Toilet Assist: (I) ASSESSMENT/PLAN: Pt is demonstrating a significant increase in (I) in ADL routines in the sitting position. He is visibly tired after OT session but was much more receptive to performing ADLs today. Pt would benefit from continued skilled OT intervention for progression of ADLs to standing position and education on energy conservation techniques. TREATMENT CODES/TIME: [id number], 35 minutes (08:40) [facility]
--- NOTE | 2018-05-13 14:21 | W.ORTHOCONSU ---
Date of service: 05/13/18 Time of Service: 14:21 History of Present Illness Chief Complaint: Right dorsal hand pain and swelling. Narrative: This is a 73-year-old white male with a fascinating history. He was admitted to the hospital presumably for dehydration and acute kidney injury due to taking a higher dose of diuretics. He responded well to the treatment initiated on the day of admission 05/02/2018. He then experienced a fever and rigors on 05/06/2018. There was noted to be erythema swelling and pain on the dorsum of the right hand which was a site of a IV access. Blood cultures were positive for staph aureus (MSSA). A thorough search for a source for the sepsis was then initiated. Abdominal pelvis CT was negative. Chest x-ray negative. Transthoracic echo cardiogram showed an ejection fraction of 60-65% no vegetation on any of the valves, including prosthetic aortic valve. Pacemaker wire was well located. The patient improved on IV antibiotics and the only site of infection that could be determined was the dorsum of his hand. He says his hand is feeling a lot better. He is able to move his fingers better he is able to cupola charger insulation things better. The swelling is gone down. A hand CT did not show an abscess. I was consulted to make sure that I did not think anything further needs to be done. He has now been switched over to Ancef. Consult Reason manage/follow up cellulitis R hand Assessment and Plan (1) Cellulitis of right hand: Current visit: Yes Status: Acute Assessment: Although unusual, I think he did have the acute onset of sepsis from an infected IV site. At the present time it looks like he is responded well to antibiotics. There is no abscess to drain. I think he can be switched over to oral antibiotics at any time. Plan: Continue p.o. antibiotics until the erythema is gone from his right hand. Increase activities as tolerated with the right hand. Thanks for the consultation. [facility] Medical History STEMI (ST elevation myocardial infarction) (Chronic) Sleep apnea (Chronic 12/28/15) Sciatica of left side (Chronic 03/26/16) Primary osteoarthritis involving multiple joints (Chronic 01/04/16) Pain in lower limb (Chronic 02/18/89) Nonallergic rhinitis (Resolved 01/28/15) Leg pain, left (Chronic 01/17/16) Left lumbar radiculopathy (Chronic 10/26/16) Hypertriglyceridemia (Chronic 12/31/14) Dyspnea on exertion (Chronic 09/20/15) Distal paresthesia (Chronic 02/16/14) DM w/o complication type II, uncontrolled (Chronic 11/12/13) DM neuro manif type II (Chronic) Chronic pain disorder (Chronic 10/26/16) Chronic obstructive pulmonary disease (Chronic 01/21/17) Adjustment disorder, unspecified (Resolved 09/03/16) Acute gastroenteritis (Resolved) Aortic stenosis (Resolved) Discharge planning issues (Resolved) Lumbar back pain with radiculopathy affecting left lower extremity (Chronic) Neuropathy, lateral femoral cutaneous nerve (Chronic) Influenza with respiratory manifestations (Resolved 04/16/14) Diabetes mellitus, type II (Chronic) Hypertension (Chronic) Hyperlipidemia (Chronic) Obesity (Chronic) Peripheral neuropathy (Chronic) Weakness (Chronic 04/16/14) s/p respiratory failure (Chronic 04/16/14) s/p mechanical ventilation (Chronic 04/16/14) Encounter for physical therapy (Chronic 04/16/14) Surgical History H/O surgical procedure (Chronic) Biopsy Skin of left confucianism (12/10/14) Central line for TPN (03/31/14) Family History Mother Stroke Father No problems noted. Brother No problems noted. Social History Smoking/Tobacco Use Status: Current-Occasional Tobacco Type: cigarettes and cigars Tobacco: How many years used: 60 Alcohol Intake: former Drug use: Never Substance use type: does not use Housing: apartment Pets and animals: Yes Pets and animals: dog(s) What type of physical activity do you participate in: bicycling and other Details: stationary bike Duration: 15-30 minutes/day Frequency: 5-6 times per week Seatbelt use: always Drive intox or ride w/intox frontload driver: No Water heater temp set <120 deg: Yes Working smoke detector in home: Yes Fire extinguisher in home: Yes Carbon monox detector in home: Yes Do you feel safe at home: Yes Do you feel safe in your relationship?: Yes Exam Narrative Exam Narrative: I have reviewed his labs and read through all his progress notes. His white count is now normal. He is afebrile. Blood sugars are fairly well controlled. He is able to his right hand into the palm coming to about 1 cm from the distal palmar flexion crease. He is able to extend his fingers fully. He has a 5 mm scab on the dorsum of his right hand at about the base of the ring finger metacarpal. There is some mild surrounding erythema and induration. It is minimally tender to firm palpation however. I cannot palpate any fluctuance that would suggest an abscess. Diameter of the erythema approximately 2-1/2 cm. He has full range of motion of his right wrist. CT scan of the hand shows soft tissue thickening on the dorsum of the hand. No evidence of any osteomyelitis of the metacarpals. No abscess formation. Results Last Vital Signs Temp 36 C L 05/13/18 11:14 Pulse 68 05/13/18 11:14 Resp 18 05/13/18 11:14 BP 144/77 H 05/13/18 11:14 Pulse Ox 95 05/13/18 11:14 Labs : 05/13/18 07:05 05/13/18 07:05 Laboratory Results - last 24 hr 05/13/18 05/13/18 07:05 07:05 WBC 7.06 RBC 3.55 L Hgb 10.3 L Hct 31.1 L MCV 87.6 MCH 29.0 MCHC 33.1 RDW 16.8 H Plt Count 313 MPV 9.7 Immature Gran % 1.6 Neutrophils % 50.8 Lymphocytes % 32.6 Monocytes % 10.9 Eosinophils % 3.4 Basophils % 0.7 Absolute Neutrophils 3.59 Absolute Lymphocytes 2.30 Absolute Monocytes 0.77 H Absolute Eosinophils 0.24 Absolute Basophils 0.05 Sodium 139 Potassium 3.8 Chloride 101 Carbon Dioxide 28.8 Anion Gap 9.2 BUN 22 H Creatinine 1.45 H Estimated GFR/1.73 m2 47.71 Glucose 156 H Calcium 9.3 Magnesium 2.2 C-Reactive Protein 7.28 H
[2018-05-13 14:28] LABS: Vancomycin, Trough 14.4 ug/mL (10.0-20.0)
--- NOTE | 2018-05-13 15:27 | CHAPLAIN ---
Kam was in bed texting on his phone when I visited. He was pleasant, responded to questions but did not seem interested in further conversation.
[2018-05-13] MEDS: Normal Saline Flush 10 ML SYR IVP ×3 (15:50→21:15)
[2018-05-13] MEDS: Pantoprazole 40 MG VIAL IVP (15:51)
[2018-05-13] MEDS: oxyCODONE 10 MG TAB PO ×2 (16:06→20:05)
--- NOTE | 2018-05-13 19:52 | PGE_ITS ---
Date of Service Date of service: 05/13/18 Time of Service: 16:15 Assessment and Plan (1) Sepsis: Current visit: Yes Status: Acute with MSSA Bacteremia. Blood cx 05/06, 05/08 with growth; blood cx 05/10: NGTD. Portal of entry is likely the R hand lesion. S/p negative CASSI 05/12/18. Continue vancomycin/ancef until the hand cellulitis resolves, then would swtich to just ancef 8 mg IV Q 8hrs. Total duration of IV abx is 6 weeks from 05/10 and AICD explantation decision needs to be made. Continue to trend CRP. (2) Cellulitis of right hand: Current visit: Yes Status: Acute Improved significantly. No evidence of abscess/empyema. Appreciate ortho help. (3) MSSA bacteremia: Current visit: No Status: Acute As above. Continue cefazolin (Day 4 since 1st negative blood culture); vancomycin (Day 4). No endocarditis per CASSI. Read discussion above (4) Fever: Current visit: Yes Status: Acute Part of SIRS. (5) Acute kidney injury superimposed on chronic kidney disease: Current visit: Yes Status: Acute Stable, likely prerenal. Creatinine currently at baseline. Continue to hold LAURA-I and Spironolactone and monitor. Continue PO lasix. (6) Hypertension: Current visit: No Status: Chronic Continue home dose of Carvedilol, PO lasix; monitor weight and renal function carefully. (7) CAD (coronary artery disease): Current visit: Yes Status: Chronic With reported STEMI with cardiac arrest 12/2017 - s/p AICD. No ACS on this admission. Continue ASA, statin, BB, fenofibrate. (8) CHF (congestive heart failure): Current visit: Yes Status: Chronic ICMO now with normalized ejection fraction, he is s/p AICD. Continue aspirin and statin therapy. Continue to hold laura-i and spironolactone. Continue lasix. Continue BB. CASSI negative. (9) Diabetes mellitus, type II: Current visit: No Status: Chronic Increase long acting insulin to 10 units QHS. No glipizide. Continue SSI. (10) Chronic pain disorder: Current visit: No Status: Chronic Continue home Oxycodone. (11) Chronic obstructive pulmonary disease: Current visit: No Status: Chronic At baseline - no change in tx. (12) Nausea & vomiting: Current visit: Yes Status: Resolved In setting of acute illness. CT a/p negative. Resolved. Continue to treat infection as above. (13) DVT prophylaxis: Current visit: Yes Status: Acute SC heparin. Continue TEDs + SCD's. (14) Advance directive on file: Current visit: Yes Status: Acute DNR/DNI, but s/p AICD which is active. Palliative care consulted. Subjective Interval history since last seen: Mr Pittman states his right hand is feeling better. He denies dizziness, chest pain, shortness of breath, nausea, vomiting. I spoke with Dr Kulkarni of ID at [facility] in regards to the patient. Per him, the approach to treatment is either A) explantation of AICD with re- implantation at a later date or B) Completion of 6 weeks of ancef with lifelong keflex 500 mg PO BID and, at least initially, weekly monitoring of blood cultures. I discussed this with the patient, who states he wants me to talk to his cousin Paula (she is the doctor of nursing) so that the decision can be made. Exam Narrative Exam Narrative: General: Obese male, sitting up in a chair, comfor table HEENT: EOMI, MMM Heart: RRR, + KARINA Lungs: I do not hear crackles today GI: abdomen is soft, nontender, nondistended Extremities: dorsal surface of R hand with an erythematous lesion and surround ing erythema, continues to improve; no onbvious drainage. Full ROM of hand/fingers/wrist. Trace BLE edema, symmetric, improved. Objective Objective Clinical Data: Abnormal lab results 05/13/18 05/13/18 Range/Units 07:05 07:05 RBC 3.55 L (4.50-6.00) m/cumm Hgb 10.3 L (13.5-17.5) g/dL Hct 31.1 L (40.0-50.0) % RDW 16.8 H (11.8-14.1) % Absolute Monocytes 0.77 H (0.11-0.7) k/cumm BUN 22 H (7-18) mg/dL Creatinine 1.45 H (0.70-1.30) mg/dL Glucose 156 H (70-100) mg/dL C-Reactive Protein 7.28 H (0.0-0.3) mg/dL Vital Signs Temperature 36.2 C L 05/13/18 19:39 Temperature Source Tympanic 05/13/18 19:39 Pulse 72 05/13/18 19:39 Pulse Rhythm Regular 05/13/18 08:37 Pulse 60 05/11/18 09:00 Respiratory Rate 19 05/13/18 19:39 Respiratory Effort 05/13/18 08:37 Respiratory Depth Normal 05/13/18 08:37 Respiratory Pattern Normal 05/13/18 08:37 Blood Pressure 124/63 05/13/18 19:39 Blood Pressure Mean 83 05/11/18 08:57 Blood Pressure Position Sitting 05/09/18 21:00 Pulse Oximetry 93 L 05/13/18 19:39 Oxygen Delivery Method Room Air 05/13/18 19:39 Oxygen Flow Rate 0 05/13/18 19:39 Fraction of Inspired Oxygen (FIO2) 30 05/07/18 09:56 Pain Level 1 05/13/18 17:06 Comment 05/09/18 14:00 Intake & Output 05/12/18 05/13/18 05/13/18 23:59 11:59 23:59 Intake Total 1735 / 1835 540 / 880 340 / 880 Balance 1735 / 1322 540 / 880 340 / 880 Weight 88.1 kg Intake: IV 1015 / 1115 300 / 400 100 / 400 Oral 720 / 720 240 / 480 240 / 480 Other: Urine Color Yellow Urine Appearance Clear Clear Urine Odor Normal Stool Size Small Stool Characteristics Soft Voiding Methods Toilet Toilet Laboratory Results WBC 7.06 k/cumm (4.4-10.8) 05/13/18 07:05 RBC 3.55 m/cumm (4.50-6.00) L 05/13/18 07:05 Hgb 10.3 g/dL (13.5-17.5) L 05/13/18 07:05 Hct 31.1 % (40.0-50.0) L 05/13/18 07:05 MCV 87.6 fL (80-95) 05/13/18 07:05 MCH 29.0 pg (27.0-33.0) 05/13/18 07:05 MCHC 33.1 g/dL (32.0-36.0) 05/13/18 07:05 RDW 16.8 % (11.8-14.1) H 05/13/18 07:05 Plt Count 313 x1000/uL (130-400) 05/13/18 07:05 MPV 9.7 fL (8.0-11.0) 05/13/18 07:05 Immature Gran % 1.6 05/13/18 07:05 Neutrophils % 50.8 05/13/18 07:05 Lymphocytes % 32.6 05/13/18 07:05 Monocytes % 10.9 05/13/18 07:05 Eosinophils % 3.4 05/13/18 07:05 Basophils % 0.7 05/13/18 07:05 Absolute Neutrophils 3.59 k/cumm (1.2-6.7) 05/13/18 07:05 Absolute Lymphocytes 2.30 k/cumm (1.2-3.4) 05/13/18 07:05 Absolute Monocytes 0.77 k/cumm (0.11-0.7) H 05/13/18 07:05 Absolute Eosinophils 0.24 k/cumm (0.0-0.7) 05/13/18 07:05 Absolute Basophils 0.05 k/cumm (0.0-0.2) 05/13/18 07:05 PT 11.9 sec (9.3-11.0) H 05/02/18 10:35 INR 1.2 (0.9-1.1) H 05/02/18 10:35 APTT 28.5 sec (21.0-31.4) 05/08/18 09:15 Sodium 139 mmol/L (136-145) 05/13/18 07:05 Potassium 3.8 mmol/L (3.5-5.1) 05/13/18 07:05 Chloride 101 mmol/L (98-107) 05/13/18 07:05 Carbon Dioxide 28.8 mmol/L (21.0-32.0) 05/13/18 07:05 Anion Gap 9.2 mmol/L (3-11) 05/13/18 07:05 BUN 22 mg/dL (7-18) H 05/13/18 07:05 Creatinine 1.45 mg/dL (0.70-1.30) H 05/13/18 07:05 Estimated GFR/1.73 m2 47.71 (mL/min/1.73m2) 05/13/18 07:05 Glucose 156 mg/dL (70-100) H 05/13/18 07:05 Lactate 1.1 mmol/l (0.6-1.4) 05/07/18 23:36 Calcium 9.3 mg/dL (8.5-10.1) 05/13/18 07:05 Magnesium 2.2 mg/dL (1.8-2.4) 05/13/18 07:05 Total Bilirubin 0.3 mg/dL (0.2-1.0) 05/02/18 10:35 AST 21 U/L (15-37) 05/02/18 10:35 ALT 27 U/L (12-78) 05/02/18 10:35 Alkaline Phosphatase 32 U/L (46-116) L 05/02/18 10:35 Troponin I 0.26 ng/mL (0.00-0.06) H* 05/08/18 13:02 C-Reactive Protein 7.28 mg/dL (0.0-0.3) H 05/13/18 07:05 Total Protein 7.1 g/dL (6.4-8.2) 05/02/18 10:35 NT-Pro-B Natriuret Pep 7642 pg/mL (-299) H 05/07/18 23:36 Albumin 3.9 g/dL (3.4-5.0) 05/02/18 10:35 Urine Color Yellow (Yellow) 05/05/18 15:30 Urine Clarity Clear 05/05/18 15:30 Urine pH 7.0 (5-8) 05/05/18 15:30 Ur Specific [place] 1.015 (1.005-1.025) 05/05/18 15:30 Urine Protein Negative mg/dL (Negative) 05/05/18 15:30 Urine Ketones Negative mg/dL (Negative) 05/05/18 15:30 Urine Blood Negative (Negative) 05/05/18 15:30 Urine Nitrite Negative (Negative) 05/05/18 15:30 Urine Bilirubin Negative (Negative) 05/05/18 15:30 Urine Urobilinogen 0.2 EU/dL (Up TO 0.2) 05/05/18 15:30 Ur Leukocyte Esterase Negative (Negative) 05/05/18 15:30 Urine Glucose 100 mg/dL (Negative) 05/05/18 15:30 Specimen Type Nasopharyngeal 05/06/18 19:05 Vancomycin Trough 14.4 ug/mL (10.0-20.0) 05/13/18 13:45 Influenza Type A RNA Negative (Negative) 05/06/18 19:05 Influenza Type B RNA Negative (Negative) 05/06/18 19:05 RSV RNA Qual (PCR) Negative (Negative) 05/06/18 19:05
[2018-05-13] MEDS: Ondansetron 4 MG/2 ML VIAL IVP (20:05)
[2018-05-13] MEDS: Mirtazapine 15 MG TAB PO (21:13)
[2018-05-14] VITALS (8 sets, daily range): BP systolic 138–171; BP diastolic 68–89; PULSE 68–80; RESP 18–20; TEMP 36.2–37.6; O2SAT 94–97
[2018-05-14] MEDS: Normal Saline Flush 10 ML SYR IVP ×6 (01:46→20:28)
[2018-05-14] MEDS: Acetaminophen 325 MG TAB PO ×3 (03:33→20:32)
--- NOTE | 2018-05-14 04:02 | NUR.NOTE ---
Nursing Note: Pt had episode of mild confusion , Midline had good blood returned beginning of the shift then after Vancomycin, unable to get blood return but flushes good. B/P is elevated at 03:30 , Temp was 37.6. Tylenol given as requested to help also to sleep. Continue to observe.
[2018-05-14 07:12] LABS: Abs Immature Grans 0.16 k/cumm (0.0-0.09); Absolute Basophil Count 0.04 k/cumm (0.0-0.2); Absolute Eosinophil Count 0.28 k/cumm (0.0-0.7); Absolute Lymphocyte Count 3.35 k/cumm (1.2-3.4); Absolute Neutrophil Count 4.94 k/cumm (1.2-6.7); Basophils % 0.4; Eosinophils % 2.9; HCT 33.2 % (40.0-50.0); HGB 10.8 g/dL (13.5-17.5); Immature Grans % 1.7; Mean Corp. HGB Concentration 32.5 g/dL (32.0-36.0); Mean Corpuscular Hemoglobin 28.8 pg (27.0-33.0); Mean Corpuscular Volume 88.5 fL (80-95); Mean Platelet Volume 9.6 fL (8.0-11.0); Monocytes % 8.4; Neutrophils % 51.6; Platelet Count 364 x1000/uL (130-400); RBC 3.75 m/cumm (4.50-6.00); RBC Distribution Width 16.6 % (11.8-14.1); White Blood Cell Count 9.57 k/cumm (4.4-10.8)
[2018-05-14] MEDS: Fluticasone-Umeclidin-Vilanter [Trelegy Ellipta] IH (07:35)
[2018-05-14 07:40] LABS: Anion Gap 9.8 mmol/L (3-11); BUN 23 mg/dL (7-18); C-Reactive Protein 4.87 mg/dL (0.0-0.3); CO2 28.2 mmol/L (21.0-32.0); CREATININE 1.65 mg/dL (0.70-1.30); Calcium 9.2 mg/dL (8.5-10.1); Chloride 99 mmol/L (98-107); Glucose 162 mg/dL (70-100); Magnesium 2.3 mg/dL (1.8-2.4); Potassium 3.8 mmol/L (3.5-5.1); Sodium 137 mmol/L (136-145)
[2018-05-14] MEDS: Aspirin E.C. 81 MG TABEC PO (08:14)
[2018-05-14] MEDS: Magnesium Oxide 400 MG TAB PO ×2 (08:14→19:24)
[2018-05-14] MEDS: Fenofibrate, Micronized 145 MG TAB PO (08:14)
[2018-05-14] MEDS: Atorvastatin 20 MG TAB 60 MG PO (08:15)
[2018-05-14] MEDS: Furosemide 40 MG TAB PO ×2 (08:15→16:10)
[2018-05-14] MEDS: CARVEDILOL 12.5 MG TAB PO ×2 (08:15→19:24)
[2018-05-14] MEDS: Fluticasone NASAL SPRAY 16 GM BTL NS (08:16)
[2018-05-14] MEDS: Insulin Aspart 300 UNITS/3 ML PEN SC ×3 (08:17→17:00)
[2018-05-14] MEDS: Heparin 5,000 UNITS/ML VIAL 5000 UNITS SC ×2 (08:21→16:10)
--- NOTE | 2018-05-14 11:26 | OT.INNT ---
Date of service: 05/14/18 Time of Service: 11:26 Occupational Therapy Notes 05/14/18 Pt performed all ADLs prior to arrival of OT with nursing. OT will touch base with pt tomorrow to go through ADL routines and provide adaptive equipment as needed. Lois Hua OTR/[facility]
--- NOTE | 2018-05-14 12:40 | PT.INTREAT ---
Date of service: 05/14/18 Time of Service: 12:40 PT Notes Inpatient Physical Therapy Treatment Note [facility] Date: 05/14/18 PRECAUTIONS: Fall SUBJECTIVE: Kam reports that he has not gotten any good news today regarding his medical condition, and continues to express concern regarding the next step in his care. OBJECTIVE: PAIN: Patient complains of pain in back with ther ex BED MOBILITY/TRANSFERS Supine-sit: I Sit-stand: I Stand-sit: I GAIT Assistive Device: FWW Weight bearing: Full Assist: S Distance: 300' Deviation: Slow pace THEREX: Patient completed a lower extremity strengthening program, in a standing position, as per flow sheet. Patient complains of back pain that radiates into left lower extremity with all exercises. STAIRS: Refused TOILETING: Patient toileted independently ASSESSMENT: Patient tolerated session with complaint of back pain radiating into left lower extremity with ther ex program. Patient was able to tolerate a progression in gait distance, with FWW support and supervision, demonstrating continued slow pace. Patient would benefit from continued gait training and strengthening for improved activity tolerance. PLAN: Continue with PTs POC TREATMENT CODE/TIME: 30 minutes; [id number], [id number]
[2018-05-14 12:43] LABS: Troponin I 0.02 ng/mL (0.00-0.06)
--- NOTE | 2018-05-14 15:00 | PDOC.CMPRO ---
- If Service Date Differs Date of service: 05/14/18 Time of Service: 15:00 Care Management Progress Note S/O: CM met with patient at the bedside. He is engaged during assessment. He states that he would like to stay here as a SB1 for antibiotics. Per Dr. Soto infectious disease has recommended 6 weeks of IV antibiotics three times a day r/t to MSSA, which cannot be done at a SNF facility.Kam states he does not want the AICD removed which would be his other option. CM contacted Pt cousin Paula in [place] as his request and reviewed the plan. She states that she is going to get into touch with other family members on his behalf to assist with placement. Kam would like to enter into an assisted living. He refuses to have a referral to SNF facility at this time. CM reviewed local options for level 2 and 3 in the area. 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 Paula is going to contact Luis his cousin that handles his finances to determine if he may be eligible for advertising sales representative medicaid. CM to complete Sb1 contract with patient after review. Pallavi Humphrey is a 73 year old male admitted with acute renal insufficiency and positive blood cultures for MSSA. Kam does have an area on his right hand that appears less red and swollen from what he reports the redness started after an IV in that hand. P: Kam remains acute today he will transition to SB1 anticipate on for 6 weeks of antibiotics. Once IV antibiotics are complete he will then need oral Keflex daily for the remainder of his life per MD. Kam has a goal to transition to assisted living CM to compete the [employer] application with him. Plan for a family meeting once Paula is able to contact his cousins. Family would like him to return to [place] however that is not his goal at this time.
--- NOTE | 2018-05-14 15:36 | CMPROGNOTE_ITS ---
- If Service Date Differs Date of service: 05/14/18 Time of Service: 15:00 Care Management Progress Note S/O: CM met with patient at the bedside. He is engaged during assessment. He states that he would like to stay here as a SB1 for antibiotics. Per Dr. Soto infectious disease has recommended 6 weeks of IV antibiotics three times a day r/t to MSSA, which cannot be done at a SNF facility.Kam states he does not want the AICD removed which would be his other option. CM contacted Pt cousin Paula in [place] as his request and reviewed the plan. She states that she is going to get into touch with other family members on his behalf to assist with placement. Kam would like to enter into an assisted living. He refuses to have a referral to SNF facility at this time. CM reviewed local options for level 2 and 3 in the area. 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 Paula is going to c ontact Luis his cousin that handles his finances to determine if he may be eligible for [facility] med[facility]. CM to complete Sb1 contract with patient after review. Pallavi Humphrey is a 73 year old male admitted with acute renal insufficiency and positive blood cultures for MSSA. Kam does have an area on his right hand that appears less red and swollen from what he reports the redness started after an IV in that hand. P: Kam remains acute today he will transition to SB1 anticipate on for 6 weeks of antibiotics. Once IV antibiotics are complete he will then need oral Keflex daily for the remainder of his life per MD. Kam has a goal to transition to assisted living CM to compete the [employer] application with him. Plan for a family meeting once Paula is able to contact his cousins. Family would like him to return to [place] however that is not his goal at this time.
[2018-05-14] MEDS: Pantoprazole 40 MG VIAL IVP (16:10)
--- NOTE | 2018-05-14 19:07 | W.PM.PROGNOT ---
Date of Service Date of service: 05/14/18 Time of Service: 15:00 Assessment and Plan (1) Sepsis: Current visit: Yes Status: Acute with MSSA Bacteremia. Blood cx 05/06, 05/08 with growth; blood cx 05/10: NGTD. Portal of entry is likely the R hand lesion. S/p negative CASSI 05/12/18. Improving. Continue vancomycin/ancef until the hand cellulitis resolves, then would swtich to just ancef 8 mg IV Q 8hrs. Total duration of IV abx is 6 weeks from 05/10 and AICD explantation decision needs to be made. Continue to trend CRP. (2) Cellulitis of right hand: Current visit: Yes Status: Acute Improved significantly. No evidence of abscess/empyema. Appreciate ortho help. (3) MSSA bacteremia: Current visit: Yes Status: Acute As above. Continue cefazolin (Day 5 since 1st negative blood culture); vancomycin (Day 5). No endocarditis per CASSI. Read discussion above (4) Fever: Current visit: Yes Status: Resolved Part of SIRS. (5) Acute kidney injury superimposed on chronic kidney disease: Current visit: Yes Status: Acute Stable, likely prerenal. Creatinine currently at baseline. Continue to hold LAURA-I and Spironolactone and monitor. Decrease PO lasix (6) Hypertension: Current visit: No Status: Chronic Continue home dose of Carvedilol, PO lasix; monitor weight and renal function carefully. (7) CAD (coronary artery disease): Current visit: Yes Status: Chronic With reported STEMI with cardiac arrest 12/2017 - s/p AICD. No ACS on this admission. Continue ASA, statin, BB, fenofibrate. (8) CHF (congestive heart failure): Current visit: Yes Status: Chronic ICMO now with normalized ejection fraction, he is s/p AICD. Continue aspirin and statin therapy. Continue to hold laura-i and spironolactone. Continue lasix. Continue BB. CASSI negative. (9) Diabetes mellitus, type II: Current visit: No Status: Chronic Continue basal bolus insulin (10) Chronic pain disorder: Current visit: No Status: Chronic Continue home Oxycodone. (11) Chronic obstructive pulmonary disease: Current visit: No Status: Chronic At baseline - no change in tx. (12) Nausea & vomiting: Current visit: Yes Status: Resolved In setting of acute illness. CT a/p negative. Resolved. Continue to treat infection as above. (13) DVT prophylaxis: Current visit: Yes Status: Acute SC heparin. Continue TEDs + SCD's. (14) Advance directive on file: Current visit: Yes Status: Acute DNR/DNI, but s/p AICD which is active. Palliative care consulted. (15) Chest pain: Current visit: Yes Status: Acute No ACS, but will monitor symptoms closely. Subjective Interval history since last seen: The patient states that he would like to complete 6 weeks of IV abx rather than have his AICD extracted. He notices more pain in his hand today but then remembers that he hadn't taken any oxycodone up until the moment that I saw him. Denies dizziness, states his shortness of breath is at baseline, denies nausea, vomiting. He did have an episode of chest pain this morning that he didn't report to nursing. Exam Narrative Exam Narrative: General: Obese male, sitting up in a chair, comfortable HEENT: EOMI, MMM Heart: RRR, + KARINA Lungs: CTAB GI: abdomen is soft, nontender, nondistended Extremities: dorsal surface of R hand with an erythematous lesion and surrounding erythema, improving; no obvious drainage. Full ROM of hand/fingers/wrist. Very trace edema BLE's, if any. Objective Objective Clinical Data: Abnormal lab results 05/14/18 05/14/18 Range/Units 06:35 06:35 RBC 3.75 L (4.50-6.00) m/cumm Hgb 10.8 L (13.5-17.5) g/dL Hct 33.2 L (40.0-50.0) % RDW 16.6 H (11.8-14.1) % Absolute Monocytes 0.80 H (0.11-0.7) k/cumm BUN 23 H (7-18) mg/dL Creatinine 1.65 H (0.70-1.30) mg/dL Glucose 162 H (70-100) mg/dL C-Reactive Protein 4.87 H (0.0-0.3) mg/dL Vital Signs Temperature 36.6 C 05/14/18 15:40 Temperature Source Tympanic 05/14/18 15:40 Pulse 68 05/14/18 15:40 Pulse Rhythm Regular 05/14/18 17:52 Pulse 60 05/11/18 09:00 Respiratory Rate 18 05/14/18 15:40 Respiratory Effort 05/14/18 17:52 Respiratory Depth Normal 05/14/18 17:52 Respiratory Pattern Normal 05/14/18 17:52 Blood Pressure 154/68 H 05/14/18 15:40 Blood Pressure Mean 83 05/11/18 08:57 Blood Pressure Position Sitting 05/09/18 21:00 Pulse Oximetry 97 05/14/18 15:40 Oxygen Delivery Method Room Air 05/14/18 15:40 Oxygen Flow Rate 0 05/14/18 15:40 Fraction of Inspired Oxygen (FIO2) 30 05/07/18 09:56 Pain Level 1 05/14/18 15:40 Comment 05/09/18 14:00 Intake & Output 05/13/18 05/14/18 05/14/18 23:59 11:59 23:59 Intake Total 440 / 980 640 / 1400 760 / 1400 Output Total 400 / 1275 875 / 1275 Balance 440 / 980 240 / 125 -115 / 125 Weight 88.2 kg Intake: IV 200 / 500 400 / 800 400 / 800 Oral 240 / 480 240 / 600 360 / 600 Output: Urine 400 / 1275 875 / 1275 Other: Urine Color Yellow Yellow Urine Appearance Clear Clear Clear Comment voiding into toilet Voiding Methods Toilet Toilet Urinal Laboratory Results WBC 9.57 k/cumm (4.4-10.8) D 05/14/18 06:35 RBC 3.75 m/cumm (4.50-6.00) L 05/14/18 06:35 Hgb 10.8 g/dL (13.5-17.5) L 05/14/18 06:35 Hct 33.2 % (40.0-50.0) L 05/14/18 06:35 MCV 88.5 fL (80-95) 05/14/18 06:35 MCH 28.8 pg (27.0-33.0) 05/14/18 06:35 MCHC 32.5 g/dL (32.0-36.0) 05/14/18 06:35 RDW 16.6 % (11.8-14.1) H 05/14/18 06:35 Plt Count 364 x1000/uL (130-400) 05/14/18 06:35 MPV 9.6 fL (8.0-11.0) 05/14/18 06:35 Immature Gran % 1.7 05/14/18 06:35 Neutrophils % 51.6 05/14/18 06:35 Lymphocytes % 35.0 05/14/18 06:35 Monocytes % 8.4 05/14/18 06:35 Eosinophils % 2.9 05/14/18 06:35 Basophils % 0.4 05/14/18 06:35 Absolute Neutrophils 4.94 k/cumm (1.2-6.7) 05/14/18 06:35 Absolute Lymphocytes 3.35 k/cumm (1.2-3.4) 05/14/18 06:35 Absolute Monocytes 0.80 k/cumm (0.11-0.7) H 05/14/18 06:35 Absolute Eosinophils 0.28 k/cumm (0.0-0.7) 05/14/18 06:35 Absolute Basophils 0.04 k/cumm (0.0-0.2) 05/14/18 06:35 PT 11.9 sec (9.3-11.0) H 05/02/18 10:35 INR 1.2 (0.9-1.1) H 05/02/18 10:35 APTT 28.5 sec (21.0-31.4) 05/08/18 09:15 Sodium 137 mmol/L (136-145) 05/14/18 06:35 Potassium 3.8 mmol/L (3.5-5.1) 05/14/18 06:35 Chloride 99 mmol/L (98-107) 05/14/18 06:35 Carbon Dioxide 28.2 mmol/L (21.0-32.0) 05/14/18 06:35 Anion Gap 9.8 mmol/L (3-11) 05/14/18 06:35 BUN 23 mg/dL (7-18) H 05/14/18 06:35 Creatinine 1.65 mg/dL (0.70-1.30) H 05/14/18 06:35 Estimated GFR/1.73 m2 41.10 (mL/min/1.73m2) 05/14/18 06:35 Glucose 162 mg/dL (70-100) H 05/14/18 06:35 Lactate 1.1 mmol/l (0.6-1.4) 05/07/18 23:36 Calcium 9.2 mg/dL (8.5-10.1) 05/14/18 06:35 Magnesium 2.3 mg/dL (1.8-2.4) 05/14/18 06:35 Total Bilirubin 0.3 mg/dL (0.2-1.0) 05/02/18 10:35 AST 21 U/L (15-37) 05/02/18 10:35 ALT 27 U/L (12-78) 05/02/18 10:35 Alkaline Phosphatase 32 U/L (46-116) L 05/02/18 10:35 Troponin I 0.02 ng/mL (0.00-0.06) 05/14/18 12:19 C-Reactive Protein 4.87 mg/dL (0.0-0.3) H 05/14/18 06:35 Total Protein 7.1 g/dL (6.4-8.2) 05/02/18 10:35 NT-Pro-B Natriuret Pep 7642 pg/mL (-299) H 05/07/18 23:36 Albumin 3.9 g/dL (3.4-5.0) 05/02/18 10:35 Urine Color Yellow (Yellow) 05/05/18 15:30 Urine Clarity Clear 05/05/18 15:30 Urine pH 7.0 (5-8) 05/05/18 15:30 Ur Specific [place] 1.015 (1.005-1.025) 05/05/18 15:30 Urine Protein Negative mg/dL (Negative) 05/05/18 15:30 Urine Ketones Negative mg/dL (Negative) 05/05/18 15:30 Urine Blood Negative (Negative) 05/05/18 15:30 Urine Nitrite Negative (Negative) 05/05/18 15:30 Urine Bilirubin Negative (Negative) 05/05/18 15:30 Urine Urobilinogen 0.2 EU/dL (Up TO 0.2) 05/05/18 15:30 Ur Leukocyte Esterase Negative (Negative) 05/05/18 15:30 Urine Glucose 100 mg/dL (Negative) 03/18/19 15:30 Specimen Type Nasopharyngeal 05/06/18 19:05 Vancomycin Trough 14.4 ug/mL (10.0-20.0) 05/13/18 13:45 Influenza Type A RNA Negative (Negative) 05/06/18 19:05 Influenza Type B RNA Negative (Negative) 05/06/18 19:05 RSV RNA Qual (PCR) Negative (Negative) 05/06/18 19:05
[2018-05-14] MEDS: Mirtazapine 15 MG TAB PO (19:24)
[2018-05-14] MEDS: oxyCODONE 10 MG TAB PO (20:27)
[2018-05-14] MEDS: Ondansetron 4 MG/2 ML VIAL IVP (20:27)
[2018-05-15] MEDS: Heparin 5,000 UNITS/ML VIAL 5000 UNITS SC ×3 (00:11→15:33)
[2018-05-15 00:19] VITALS: BP 103/67; PULSE 78; RESP 19; TEMP 36.5; O2SAT 94
[2018-05-15 07:18] LABS: Abs Immature Grans 0.11 k/cumm (0.0-0.09); Absolute Basophil Count 0.04 k/cumm (0.0-0.2); Absolute Eosinophil Count 0.33 k/cumm (0.0-0.7); Absolute Lymphocyte Count 3.23 k/cumm (1.2-3.4); Absolute Monocyte Count 0.93 k/cumm (0.11-0.7); Absolute Neutrophil Count 6.57 k/cumm (1.2-6.7); Basophils % 0.4; Eosinophils % 2.9; HCT 36.4 % (40.0-50.0); HGB 11.9 g/dL (13.5-17.5); Lymphocytes % 28.8; Mean Corp. HGB Concentration 32.7 g/dL (32.0-36.0); Mean Corpuscular Hemoglobin 28.7 pg (27.0-33.0); Mean Corpuscular Volume 87.9 fL (80-95); Mean Platelet Volume 9.7 fL (8.0-11.0); Monocytes % 8.3; Neutrophils % 58.6; Platelet Count 387 x1000/uL (130-400); RBC 4.14 m/cumm (4.50-6.00); RBC Distribution Width 16.5 % (11.8-14.1); White Blood Cell Count 11.22 k/cumm (4.4-10.8)
[2018-05-15 07:25] VITALS: O2SAT 95
[2018-05-15] MEDS: Fluticasone-Umeclidin-Vilanter [Trelegy Ellipta] IH (07:25)
[2018-05-15 07:44] LABS: Anion Gap 10.6 mmol/L (3-11); BUN 30 mg/dL (7-18); C-Reactive Protein 3.68 mg/dL (0.0-0.3); CO2 27.4 mmol/L (21.0-32.0); CREATININE 1.85 mg/dL (0.70-1.30); Calcium 9.5 mg/dL (8.5-10.1); Chloride 99 mmol/L (98-107); Estimated GFR 36.01 (mL/min/1.73m2); Glucose 183 mg/dL (70-100); Magnesium 2.2 mg/dL (1.8-2.4); Sodium 137 mmol/L (136-145)
[2018-05-15 07:45] VITALS: BP 164/73; PULSE 74; RESP 18; TEMP 36.8; O2SAT 96
[2018-05-15] MEDS: Atorvastatin 20 MG TAB 60 MG PO (08:09)
[2018-05-15] MEDS: Furosemide 40 MG TAB PO (08:09)
[2018-05-15] MEDS: Fluticasone NASAL SPRAY 16 GM BTL NS (08:09)
[2018-05-15] MEDS: Magnesium Oxide 400 MG TAB PO ×2 (08:09→20:03)
[2018-05-15] MEDS: Aspirin E.C. 81 MG TABEC PO (08:10)
[2018-05-15] MEDS: Fenofibrate, Micronized 145 MG TAB PO (08:10)
[2018-05-15] MEDS: CARVEDILOL 12.5 MG TAB PO ×2 (08:10→20:02)
[2018-05-15] MEDS: Normal Saline Flush 10 ML SYR IVP ×4 (08:11→17:42)
[2018-05-15] MEDS: Insulin Aspart 300 UNITS/3 ML PEN SC ×3 (08:18→17:32)
[2018-05-15] MEDS: Milk of Magnesia 30 ML CUP PO (09:44)
[2018-05-15] MEDS: Docusate Sodium 100 MG CAP PO ×2 (09:45→20:04)
[2018-05-15] MEDS: Acetaminophen 325 MG TAB PO ×2 (09:45→20:04)
--- NOTE | 2018-05-15 11:14 | OT.INTREAT ---
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 Pt states that he is starting to feel better. He was angry about his hand and the pain. He reports multiple times that he blames the ambulance for this and would like to the hospital to get involved but will worry about this once he is discharged. OBJECTIVE: PAIN:no c/o pain FUNCTIONAL MOBILITY Sit-stand: S Stand-sit: S Bed-Chair: S, FWW Chair-bed: S, FWW BATHING: Upper Body: Standing at sink (I) with face, (B) UE and abdomen Lower Body: Sitting in chair (I) DRESSING: Upper Extremity: Standing (I) with donning and doffing personal shirt, FWW (S) Lower Extremity: Sitting (I) donning and doffing personal underwear, and shorts GROOMING: Standing at sink (I) brushing hair and teeth, with (S) and FWW TOILETING: Device: toilet Assist: (I) ASSESSMENT/PLAN: Pt is functionally demonstrating increased (I) in ADL routines. He is still stating that he is dizzy when standing although when asked to sit he states that he is fine and does not mention this again. Pt is functionally performing ADLs with (S) for functional mobility. TREATMENT CODES/TIME: [id number], 33 minutes (08:45) Lois Hua OTR/[facility]
--- NOTE | 2018-05-15 11:21 | OTTR_ITS ---
Date of service: 05/15/18 Time of Service: 08:45 Occupational Therapy Notes Occupational Therapy Inpatient Treatment Note Date: 05/15/18 PRECAUTIONS: Standard SUBJECTIVE: Pt was walking with FACTORY FOCUS TECHNICIAN prior to OT session. Pt states that he is starting to feel better. He was angry about his hand and the pain. He reports multiple times that he blames the ambulance for this and would like to the hospital to get involved but will worry about this once he is discharged. OBJECTIVE: PAIN:no c/o pain FUNCTIONAL MOBILITY Sit-stand: S Stand-sit: S Bed-Chair: S, FWW Chair-bed: S, FWW BATHING: Upper Body: Standing at sink (I) with face, (B) UE and abdomen Lower Body: Sitting in chair (I) DRESSING: Upper Extremity: Standing (I) with donning and doffing personal shirt, FWW (S) Lower Extremity: Sitting (I) donning and doffing personal underwear, and shorts GROOMING: Standing at sink (I) brushing hair and teeth, with (S) and FWW TOILETING: Device: toilet Assist: (I) ASSESSMENT/PLAN: Pt is functionally demonstrating increased (I) in ADL routines. He is still stating that he is dizzy when standing although when asked to sit he states that he is fine and does not mention this again. Pt is functionally performing ADLs with (S) for functional mobility. TREATMENT CODES/TIME: [id number], 33 minutes (08:45) Lois Hua OTR/[facility]
[2018-05-15 11:50] VITALS: BP 134/74; PULSE 72; RESP 20; TEMP 36.8; O2SAT 95
--- NOTE | 2018-05-15 12:30 | PT.INTREAT ---
Date of service: 05/15/18 Time of Service: 12:30 PT Notes Inpatient Physical Therapy Treatment Note [facility] Date: 05/15/18 PRECAUTIONS: Fall SUBJECTIVE: Kam states that he isn't feeling any better today. He continues to express concern regarding the plan for his medical problems. He remains adamant that he will not go to a SNF. OBJECTIVE: PAIN: Patient continues to c/o constant throbbing in R hand BED MOBILITY/TRANSFERS Sit-stand: I Stand-sit: I GAIT Assistive Device: FWW Weight bearing: Full Assist: S Distance: 200' Deviation: Slow pace STAIRS: Up/down 3x4 and 2x6 B rails and a step-to pattern with supervision. Cueing for sequence and pain relief techniques, slow pace ASSESSMENT: Patient tolerated session with c/o pain in L LE with hip flexion. He was able to tolerate stair training requiring cueing for sequence and pain relief techniques. He would benefit from continued conditioning for improved activity tolerance. PLAN: Continue with PT's pOC TREATMENT CODE/TIME: 25 minutes; [id number] x2
[2018-05-15 13:28] LABS: Vancomycin, Trough 22.8 ug/mL (10.0-20.0)
[2018-05-15] MEDS: Pantoprazole 40 MG VIAL IVP (15:35)
[2018-05-15 15:50] VITALS: BP 149/68; PULSE 72; RESP 16; TEMP 36.9; O2SAT 96
--- NOTE | 2018-05-15 16:26 | PDOC.CMPRO ---
- If Service Date Differs Date of service: 05/15/18 Time of Service: 16:26 Care Management Progress Note S/O: Kam is lying in bed when CM is in the room. PT reports he is doing well and ambulating independently. PT and OT are going to discharge patient from service. Per provider Kam is not ready to transition to Sb1. He will have a consult with on Saturday related to his statements of hopelessness. He does not want to meet with palliative care again he does not feel it was helpful to him. He continues to not want his AICD removed and will plan of the 6 weeks total of antibiotics. CM provided patient with the application for [employer] to review will complete with patient when he is ready. Pallavi Humphrey is a 73 year old male admitted with acute renal insufficiency and positive blood cultures for MSSA. Kam does have an area on his right hand that appears less red and swollen from what he reports the redness started after an IV in that hand. P: Kam remains acute today he will transition to SB1 anticipate on for 6 weeks of antibiotics. Once IV antibiotics are complete he will then need oral Keflex daily for the remainder of his life per MD. Kam has a goal to transition to assisted living CM to compete the [employer] application with him. Plan for a family meeting once Paula is able to contact his cousins. Family would like him to return to [place] however that is not his goal at this time.
--- NOTE | 2018-05-15 16:40 | CMPROGNOTE_ITS ---
- If Service Date Differs Date of service: 05/15/18 Time of Service: 16:26 Care Management Progress Note S/O: Kam is lying in bed when CM is in the room. PT reports he is doing well and ambulating independently. PT and OT are going to discharge patient from service. Per provider Kam is not ready to transition to Sb1. He will have a consult with on Saturday related to his statements of hopelessness. He does not want to meet with palliative care again he does not feel it was helpful to him. He continues to not want his AICD removed and will plan of the 6 weeks total of antibiotics. CM provided patient with the application for [employer] to review will complete with patient when he is ready. Pallavi Humphrey is a 73 year old male admitted with acute renal insufficiency and positive blood cultures for MSSA. Kam does have an area on his right hand that appears less red and swollen from what he reports the redness started after an IV in that hand. P: Kam remains acute today he will transition to SB1 anticipate on for 6 weeks of antibiotics. Once IV antibiotics are complete he will then need oral Keflex daily for the remainder of his life per MD. Kam has a goal to transition to assisted living CM to compete the [employer] application with him. Plan for a family meeting once Paula is able to contact his cousins. Family would like him to return to [place] however that is not his goal at this time.
[2018-05-15] MEDS: Normal Saline 500 ML 10 ML IV (17:33)
[2018-05-15 20:00] VITALS: BP 125/76; PULSE 68; RESP 19; TEMP 37; O2SAT 95
[2018-05-15] MEDS: oxyCODONE 10 MG TAB PO (20:02)
[2018-05-15] MEDS: Mirtazapine 15 MG TAB PO (20:03)
[2018-05-15] MEDS: Ondansetron 4 MG/2 ML VIAL IVP (20:04)
--- NOTE | 2018-05-15 20:16 | PGE_ITS ---
Date of Service Date of service: 05/15/18 Time of Service: 15:45 Assessment and Plan (1) Sepsis: Current visit: Yes Status: Acute with MSSA Bacteremia. Blood cx 05/06, 05/08 with growth; blood cx 05/10: NGTD. Portal of entry is likely the R hand lesion. S/p negative CASSI 05/12/18. Improving. Continue vancomycin/ancef until the hand cellulitis resolves, then would swtich to just ancef 8 mg IV Q 8hrs. Total duration of IV abx is 6 weeks from 05/10 and AICD explantation decision appears to be negative. I did note that patient's WBC went slightly up today - will recheck in am. Continue to trend CRP. (2) Cellulitis of right hand: Current visit: Yes Status: Acute Improved significantly. No evidence of abscess/empyema. Appreciate ortho help. Will likely finish vancomycin tomorrow. (3) MSSA bacteremia: Current visit: Yes Status: Acute As above. Continue cefazolin (Day since 1st negative blood culture); vancomycin (Day 6). No endocarditis per CASSI. Read discussion above (4) Fever: Current visit: Yes Status: Resolved Part of SIRS. (5) Acute kidney injury superimposed on chronic kidney disease: Current visit: Yes Status: Acute Stable, likely prerenal. Creatinine currently at baseline. Continue to hold LAURA-I and Spironolactone and monitor. Continue current dose of lasix. (6) Hypertension: Current visit: No Status: Chronic Continue home dose of Carvedilol, PO lasix; monitor weight and renal function carefully. (7) CAD (coronary artery disease): Current visit: Yes Status: Chronic With reported STEMI with cardiac arrest 12/2017 - s/p AICD. No ACS on this admission. Continue ASA, statin, BB, fenofibrate. (8) CHF (congestive heart failure): Current visit: Yes Status: Chronic ICMO now with normalized ejection fraction, he is s/p AICD. Continue aspirin and statin therapy. Continue to hold laura-i and spironolactone. Continue lasix. Continue BB. CASSI negative. (9) Diabetes mellitus, type II: Current visit: No Status: Chronic Continue basal bolus insulin (10) Chronic pain disorder: Current visit: No Status: Chronic Continue home Oxycodone. (11) Chronic obstructive pulmonary disease: Current visit: No Status: Chronic At baseline - no change in tx. (12) Nausea & vomiting: Current visit: Yes Status: Resolved In setting of acute illness. CT a/p negative. Resolved. Continue to treat infection as above. (13) DVT prophylaxis: Current visit: Yes Status: Acute SC heparin. Continue TEDs + SCD's. (14) Advance directive on file: Current visit: Yes Status: Acute DNR/DNI, but s/p AICD which is active. Palliative care consulted. (15) Chest pain: Current visit: Yes Status: Acute No ACS. Subjective Interval history since last seen: Mr Pittman states he is feeling a lot better from the mental stand point. He states he no longer wants to , and that his depression was never guiding hid decision to his AICD. He denies dizziness, chest pain, shortness of breath, nausea, vomiting. His R hand still is bothering him. Exam Narrative Exam Narrative: General: Obese male, sitting up in a chair, comfort able HEENT: EOMI, MMM Heart: RRR, + KARINA Lungs: CTAB GI: abdomen is soft, nontender, nondistended Extremities: dorsal surface of R hand with an erythematous lesion and surrounding erythema with very minimal erythema left; no obvious drainage. Full ROM of hand/fingers/wrist. Very trace edema BLE's, if any. Objective Objective Clinical Data: Abnormal lab results 05/15/18 05/15/18 05/15/18 Range/Units 06:30 06:30 13:05 WBC 11.22 H (4.4-10.8) k/cumm RBC 4.14 L (4.50-6.00) m/cumm Hgb 11.9 L (13.5-17.5) g/dL Hct 36.4 L (40.0-50.0) % RDW 16.5 H (11.8-14.1) % Absolute Monocytes 0.93 H (0.11-0.7) k/cumm BUN 30 H (7-18) mg/dL Creatinine 1.85 H (0.70-1.30) mg/dL Glucose 183 H (70-100) mg/dL C-Reactive Protein 3.68 H (0.0-0.3) mg/dL Vancomycin Trough 22.8 H* (10.0-20.0) ug/mL Vital Signs Temperature 36.8 C 05/15/18 11:50 Temperature Source Skin 05/15/18 11:50 Pulse 72 05/15/18 11:50 Pulse Rhythm Regular 05/15/18 16:43 Pulse 60 05/11/18 09:00 Respiratory Rate 20 05/15/18 11:50 Respiratory Effort 05/15/18 16:43 Respiratory Depth Normal 05/15/18 16:43 Respiratory Pattern Normal 05/15/18 16:43 Blood Pressure 134/74 05/15/18 11:50 Blood Pressure Mean 83 05/11/18 08:57 Blood Pressure Position Sitting 05/09/18 21:00 Pulse Oximetry 95 05/15/18 11:50 Oxygen Delivery Method Room Air 05/15/18 11:50 Oxygen Flow Rate 0 05/15/18 11:50 Fraction of Inspired Oxygen (FIO2) 30 05/07/18 09:56 Pain Level 7 05/15/18 20:02 Comment 05/15/18 11:50 Intake & Output 05/14/18 05/15/18 05/15/18 23:59 11:59 23:59 Intake Total 1100 / 1740 1000 / 1370 370 / 1370 Output Total 875 / 1275 Balance 225 / 465 1000 / 1370 370 / 1370 Weight 85.4 kg Intake: IV 500 / 900 300 / 430 130 / 430 Oral 600 / 840 700 / 940 240 / 940 Output: Urine 875 / 1275 Other: Urine Color Yellow Yellow Urine Appearance Clear Clear Clear Urine Odor None Normal Voiding Methods Toilet Toilet Urinal Laboratory Results WBC 11.22 k/cumm (4.4-10.8) H 05/15/18 06:30 RBC 4.14 m/cumm (4.50-6.00) L 05/15/18 06:30 Hgb 11.9 g/dL (13.5-17.5) L 05/15/18 06:30 Hct 36.4 % (40.0-50.0) L 05/15/18 06:30 MCV 87.9 fL (80-95) 05/15/18 06:30 MCH 28.7 pg (27.0-33.0) 05/15/18 06:30 MCHC 32.7 g/dL (32.0-36.0) 05/15/18 06:30 RDW 16.5 % (11.8-14.1) H 05/15/18 06:30 Plt Count 387 x1000/uL (130-400) 05/15/18 06:30 MPV 9.7 fL (8.0-11.0) 05/15/18 06:30 Immature Gran % 1.0 05/15/18 06:30 Neutrophils % 58.6 05/15/18 06:30 Lymphocytes % 28.8 05/15/18 06:30 Monocytes % 8.3 05/15/18 06:30 Eosinophils % 2.9 05/15/18 06:30 Basophils % 0.4 05/15/18 06:30 Absolute Neutrophils 6.57 k/cumm (1.2-6.7) 05/15/18 06:30 Absolute Lymphocytes 3.23 k/cumm (1.2-3.4) 05/15/18 06:30 Absolute Monocytes 0.93 k/cumm (0.11-0.7) H 05/15/18 06:30 Absolute Eosinophils 0.33 k/cumm (0.0-0.7) 05/15/18 06:30 Absolute Basophils 0.04 k/cumm (0.0-0.2) 05/15/18 06:30 PT 11.9 sec (9.3-11.0) H 05/02/18 10:35 INR 1.2 (0.9-1.1) H 05/02/18 10:35 APTT 28.5 sec (21.0-31.4) 05/08/18 09:15 Sodium 137 mmol/L (136-145) 05/15/18 06:30 Potassium 4.0 mmol/L (3.5-5.1) 05/15/18 06:30 Chloride 99 mmol/L (98-107) 05/15/18 06:30 Carbon Dioxide 27.4 mmol/L (21.0-32.0) 05/15/18 06:30 Anion Gap 10.6 mmol/L (3-11) 05/15/18 06:30 BUN 30 mg/dL (7-18) H 05/15/18 06:30 Creatinine 1.85 mg/dL (0.70-1.30) H 05/15/18 06:30 Estimated GFR/1.73 m2 36.01 (mL/min/1.73m2) 05/15/18 06:30 Glucose 183 mg/dL (70-100) H 05/15/18 06:30 Lactate 1.1 mmol/l (0.6-1.4) 05/07/18 23:36 Calcium 9.5 mg/dL (8.5-10.1) 05/15/18 06:30 Magnesium 2.2 mg/dL (1.8-2.4) 05/15/18 06:30 Total Bilirubin 0.3 mg/dL (0.2-1.0) 05/02/18 10:35 AST 21 U/L (15-37) 05/02/18 10:35 ALT 27 U/L (12-78) 05/02/18 10:35 Alkaline Phosphatase 32 U/L (46-116) L 05/02/18 10:35 Troponin I 0.02 ng/mL (0.00-0.06) 05/14/18 12:19 C-Reactive Protein 3.68 mg/dL (0.0-0.3) H 05/15/18 06:30 Total Protein 7.1 g/dL (6.4-8.2) 05/02/18 10:35 NT-Pro-B Natriuret Pep 7642 pg/mL (-299) H 05/07/18 23:36 Albumin 3.9 g/dL (3.4-5.0) 05/02/18 10:35 Urine Color Yellow (Yellow) 05/05/18 15:30 Urine Clarity Clear 05/05/18 15:30 Urine pH 7.0 (5-8) 05/05/18 15:30 Ur Specific [place] 1.015 (1.005-1.025) 05/05/18 15:30 Urine Protein Negative mg/dL (Negative) 05/05/18 15:30 Urine Ketones Negative mg/dL (Negative) 05/05/18 15:30 Urine Blood Negative (Negative) 05/05/18 15:30 Urine Nitrite Negative (Negative) 05/05/18 15:30 Urine Bilirubin Negative (Negative) 05/05/18 15:30 Urine Urobilinogen 0.2 EU/dL (Up TO 0.2) 05/05/18 15:30 Ur Leukocyte Esterase Negative (Negative) 05/05/18 15:30 Urine Glucose 100 mg/dL (Negative) 05/05/18 15:30 Specimen Type Nasopharyngeal 05/06/18 19:05 Vancomycin Trough 22.8 ug/mL (10.0-20.0) H* 05/15/18 13:05 Influenza Type A RNA Negative (Negative) 05/06/18 19:05 Influenza Type B RNA Negative (Negative) 05/06/18 19:05 RSV RNA Qual (PCR) Negative (Negative) 05/06/18 19:05
[2018-05-16] VITALS: BP 134/74; PULSE 68; RESP 19; TEMP 36.6; O2SAT 95
[2018-05-16] MEDS: Heparin 5,000 UNITS/ML VIAL 5000 UNITS SC ×3 (00:19→16:22)
[2018-05-16 03:45] VITALS: BP 131/74; PULSE 76; RESP 16; TEMP 36.4; O2SAT 95
[2018-05-16] MEDS: Ondansetron 4 MG/2 ML VIAL IVP (03:50)
[2018-05-16] MEDS: Acetaminophen 325 MG TAB PO ×2 (03:52→09:22)
[2018-05-16] MEDS: oxyCODONE 10 MG TAB PO (03:53)
[2018-05-16 07:35] VITALS: BP 124/68; PULSE 71; RESP 19; TEMP 36.7; O2SAT 94
[2018-05-16 08:17] LABS: Abs Immature Grans 0.07 k/cumm (0.0-0.09); Absolute Basophil Count 0.05 k/cumm (0.0-0.2); Absolute Eosinophil Count 0.26 k/cumm (0.0-0.7); Absolute Lymphocyte Count 3.41 k/cumm (1.2-3.4); Absolute Monocyte Count 0.77 k/cumm (0.11-0.7); Absolute Neutrophil Count 5.97 k/cumm (1.2-6.7); Basophils % 0.5; Eosinophils % 2.5; HCT 34.3 % (40.0-50.0); HGB 11.2 g/dL (13.5-17.5); Immature Grans % 0.7; Lymphocytes % 32.4; Mean Corp. HGB Concentration 32.7 g/dL (32.0-36.0); Mean Corpuscular Hemoglobin 29.1 pg (27.0-33.0); Mean Corpuscular Volume 89.1 fL (80-95); Mean Platelet Volume 9.6 fL (8.0-11.0); Monocytes % 7.3; Neutrophils % 56.6; Platelet Count 384 x1000/uL (130-400); RBC 3.85 m/cumm (4.50-6.00); RBC Distribution Width 16.7 % (11.8-14.1); White Blood Cell Count 10.53 k/cumm (4.4-10.8)
[2018-05-16 08:28] LABS: Anion Gap 9.3 mmol/L (3-11); BUN 32 mg/dL (7-18); CO2 27.7 mmol/L (21.0-32.0); CREATININE 1.84 mg/dL (0.70-1.30); Calcium 9.1 mg/dL (8.5-10.1); Chloride 101 mmol/L (98-107); Estimated GFR 36.24 (mL/min/1.73m2); Glucose 156 mg/dL (70-100); Magnesium 2.6 mg/dL (1.8-2.4); Sodium 138 mmol/L (136-145)
[2018-05-16] MEDS: Milk of Magnesia 30 ML CUP PO (09:22)
[2018-05-16] MEDS: Furosemide 40 MG TAB PO (09:22)
[2018-05-16] MEDS: Magnesium Oxide 400 MG TAB PO ×2 (09:22→19:35)
[2018-05-16] MEDS: Docusate Sodium 100 MG CAP PO ×3 (09:23→19:36)
[2018-05-16] MEDS: Insulin Aspart 300 UNITS/3 ML PEN SC ×3 (09:23→16:55)
[2018-05-16] MEDS: CARVEDILOL 12.5 MG TAB PO ×2 (09:23→19:36)
[2018-05-16] MEDS: Aspirin E.C. 81 MG TABEC PO (09:23)
[2018-05-16] MEDS: Atorvastatin 20 MG TAB 60 MG PO (09:23)
[2018-05-16] MEDS: Fenofibrate, Micronized 145 MG TAB PO (09:23)
[2018-05-16] MEDS: Polyethylene Glycol 3350 17 GM PACKET PO (09:23)
[2018-05-16] MEDS: Fluticasone NASAL SPRAY 16 GM BTL NS (09:31)
[2018-05-16] MEDS: Fluticasone-Umeclidin-Vilanter [Trelegy Ellipta] IH (10:05)
[2018-05-16 11:50] VITALS: BP 108/66; PULSE 74; RESP 18; TEMP 36.5; O2SAT 94
--- NOTE | 2018-05-16 11:51 | OT.INDS ---
Date of service: 05/16/18 Time of Service: 09:25 Occupational Therapy Notes Occupational Therapy Discharge Summary Dates of Service: 05/12/18-05/16/18 Date: 05/16/18 Referring Doctor:Lazara Soto MD OT Orders: Eval and Treat Precautions: Standard. PATIENT PROFILE/ADMITTING DIAGNOSIS: Pt is a 73 year old male who was admitted through the ER on 05/02/18 for chest pain and RLL pneumonia. Past Medical History: STEMI (ST elevation myocardial infarction) (Chronic) Sleep apnea (Chronic 12/28/15) Sciatica of left side (Chronic 03/26/16) Primary osteoarthritis involving multiple joints (Chronic 01/04/16) Pain in lower limb (Chronic 02/18/89) Nonallergic rhinitis (Resolved 01/28/15) Leg pain, left (Chronic 01/17/16) Left lumbar radiculopathy (Chronic 10/26/16) Hypertriglyceridemia (Chronic 12/31/14) Dyspnea on exertion (Chronic 09/20/15) Distal paresthesia (Chronic 02/16/14) DM w/o complication type II, uncontrolled (Chronic 11/12/13) DM neuro manif type II (Chronic) Chronic pain disorder (Chronic 10/26/16) Chronic obstructive pulmonary disease (Chronic 01/21/17) Adjustment disorder, unspecified (Resolved 09/03/16) Acute gastroenteritis (Resolved) Aortic stenosis (Resolved) Discharge planning issues (Resolved) Lumbar back pain with radiculopathy affecting left lower extremity (Chronic) Neuropathy, lateral femoral cutaneous nerve (Chronic) Influenza with respiratory manifestations (Resolved 04/16/14) Diabetes mellitus, type II (Chronic) Hypertension (Chronic) Hyperlipidemia (Chronic) Obesity (Chronic) Peripheral neuropathy (Chronic) Weakness (Chronic 04/16/14) s/p respiratory failure (Chronic 04/16/14) s/p mechanical ventilation (Chronic 04/16/14) Encounter for physical therapy (Chronic 04/16/14) H/O surgical procedure (Chronic) Biopsy Skin of left moravian (12/10/14) Central line for TPN (03/31/14) Social History/Home Situation: Pt lives in [place] in a handicap apartment. Prior to admission he was completely (I) in all ADLs/IADLs. 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 He reports that he has RCT 2x/month for any longer trips that he needs to make. He has a home in [place] but he is unable to visit due to this. He reports that he does have a girlfriend. Pt states that she does not help him with anything and it seems like he takes care of her rather than her taking care of him. Equipment owned/DME: Pt lives in a handicap apartment with all DME needed. SUBJECTIVE: Pt was sitting on side of his bed when OT arrived. He reports that he might be staying in the hospital until June receiving tx here at [facility]. OBJECTIVE: General Observation: Pleasant and answers questions appropriately Mental Status: A&Ox3 ROM: RUE AROM shoulder WFL, elbow WNL, hand and wrist WNL L UE AROM shoulder WFL, elbow WNL, hand and wrist WNL STRENGTH: RUE Shoulder flexion 4/5, bicep 4/5, tricep 4/5, principal mechanical engineer is weak LUE Shoulder flexion 4/5, bicep 3+/5, tricep 3+/5, principal mechanical engineer is weak FUNCTIONAL MOBILITY/ADLS: Sit to stand (S) Stand to sit (S) Bed to sink (S) Sink to bed (S) Supine to sit (I) Sit to Supine (I) BATHING: Upper Body: Standing at sink (I) with face, (B) UE and abdomen, hair (I) with shower cap Lower Body: Sitting in chair (I) DRESSING: Upper Extremity: Standing (I) with donning and doffing personal shirt, FWW (S) Lower Extremity: Sitting (I) donning and doffing personal underwear, and shorts GROOMING: Standing at sink (I) brushing hair and teeth, with (S) and FWW TOILETING: Device: toilet Assist: (I) BALANCE: Static sitting Normal Dynamic Sitting Normal Static Standing Normal Dynamic Standing Normal ASSESSMENT: Patient is a 73-year-old male referred to occupational therapy services with diagnosis of chest pain and RLL pneumonia. Pt has been seen for a total of 4 skilled OT sessions. He is demonstrating increased (I) in ADL/IADL and leisure activities. He functionally has met all OT goals established for him. He demonstrates his ADLs with increased safety and auto body worker awareness. OT recommends that pt would benefit from home health services when medically cleared per MD. OT will formally discharge pt from skilled OT services at this time. GOALS- All Met 1. Transfers (I) 2. Dressing In sitting position (I) UE/LE dressing 3. Bathing Standing at sink pt will be (I) in bathing routine 4. Toileting on toilet (I) 5. Eating (I) 6. Grooming (I) with brushing teeth and hair standing at sink. PLAN OF CARE/TREATMENT PLAN: Discharge from skilled OT services. DISCHARGE RECOMMENDATIONS Home with home health services for increased strengthening to increase (I) in functional activities when medically cleared per MD. TREATMENT TIME/MINUTES/CODES [id number], 30 minutes (09:25) Lois Hua OTR/[facility]
--- NOTE | 2018-05-16 11:57 | OTDS_ITS ---
Date of service: 05/16/18 Time of Service: 09:25 Occupational Therapy Notes Occupational Therapy Discharge Summary Dates of Service: 05/12/18-05/16/18 Date: 05/16/18 Referring Doctor:Lazara Soto MD OT Orders: Eval and Treat Precautions: Standard. PATIENT PROFILE/ADMITTING DIAGNOSIS: Pt is a 73 year old male who was admitted through the ER on 05/02/18 for chest pain and RLL pneumonia. Past Medical History: STEMI (ST elevation myocardial infarction) (Chronic) Sleep apnea (Chronic 12/28/15) Sciatica of left side (Chronic 03/26/16) Primary osteoarthritis involving multiple joints (Chronic 01/04/16) Pain in lower limb (Chronic 02/18/89) Nonallergic rhinitis (Resolved 01/28/15) Leg pain, left (Chronic 01/17/16) Left lumbar radiculopathy (Chronic 10/26/16) Hypertriglyceridemia (Chronic 12/31/14) Dyspnea on exertion (Chronic 09/20/15) Distal paresthesia (Chronic 02/16/14) DM w/o complication type II, uncontrolled (Chronic 11/12/13) DM neuro manif type II (Chronic) Chronic pain disorder (Chronic 10/26/16) Chronic obstructive pulmonary disease (Chronic 01/21/17) Adjustment disorder, unspecified (Resolved 09/03/16) Acute gastroenteritis (Resolved) Aortic stenosis (Resolved) Discharge planning issues (Resolved) Lumbar back pain with radiculopathy affecting left lower extremity (Chronic) Neuropathy, lateral femoral cutaneous nerve (Chronic) Influenza with respiratory manifestations (Resolved 04/16/14) Diabetes mellitus, type II (Chronic) Hypertension (Chronic) Hyperlipidemia (Chronic) Obesity (Chronic) Peripheral neuropathy (Chronic) Weakness (Chronic 04/16/14) s/p respiratory failure (Chronic 04/16/14) s/p mechanical ventilation (Chronic 04/16/14) Encounter for physical therapy (Chronic 04/16/14) H/O surgical procedure (Chronic) Biopsy Skin of left adventist (12/10/14) Central line for TPN (03/31/14) Social History/Home Situation: Pt lives in [place] in a handicap apartment. Prior to admission he was completely (I) in all ADLs/IADLs. 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 He reports that he has RCT 2x/month for any longer trips that he needs to make. He has a home in [place] but he is unable to visit due to this. He reports that he does have a girlfriend. Pt states that she does not help him with anything and it seems like he takes care of her rather than her taking care of him. Equipment owned/DME: Pt lives in a handicap apartment with all DME needed. SUBJECTIVE: Pt was sitting on side of his bed when OT arrived. He reports that he might be staying in the hospital until June receiving tx here at [facility]. OBJECTIVE: General Observation: Pleasant and answers questions appropriately Mental Status: A&Ox3 ROM: RUE AROM shoulder WFL, elbow WNL, hand and wrist WNL L UE AROM shoulder WFL, elbow WNL, hand and wrist WNL STRENGTH: RUE Shoulder flexion 4/5, bicep 4/5, tricep 4/5, electric power line repairer is weak LUE Shoulder flexion 4/5, bicep 3+/5, tricep 3+/5, electric power line repairer is weak FUNCTIONAL MOBILITY/ADLS: Sit to stand (S) Stand to sit (S) Bed to sink (S) Sink to bed (S) Supine to sit (I) Sit to Supine (I) BATHING: Upper Body: Standing at sink (I) with face, (B) UE and abdomen, hair (I) with shower cap Lower Body: Sitting in chair (I) DRESSING: Upper Extremity: Standing (I) with donning and doffing personal shirt, FWW (S) Lower Extremity: Sitting (I) donning and doffing personal underwear, and shorts GROOMING: Standing at sink (I) brushing hair and teeth, with (S) and FWW TOILETING: Device: toilet Assist: (I) BALANCE: Static sitting Normal Dynamic Sitting Normal Static Standing Normal Dynamic Standing Normal ASSESSMENT: Patient is a 73-year-old male referred to occupational therapy services with diagnosis of chest pain and RLL pneumonia. Pt has been seen for a total of 4 skilled OT sessions. He is demonstrating increased (I) in ADL/IADL and leisure activities. He functionally has met all OT goals established for him. He demonstrates his ADLs with increased safety and ambulance mechanic awareness. OT recommends that pt would benefit from home health services when medically cleared per MD. OT will formally discharge pt from skilled OT services at this time. GOALS- All Met 1. Transfers (I) 2. Dressing In sitting position (I) UE/LE dressing 3. Bathing Standing at sink pt will be (I) in bathing routine 4. Toileting on toilet (I) 5. Eating (I) 6. Grooming (I) with brushing teeth and hair standing at sink. PLAN OF CARE/TREATMENT PLAN: Discharge from skilled OT services. DISCHARGE RECOMMENDATIONS Home with home health services for increased strengthening to increase (I) in functional activities when medically cleared per MD. TREATMENT TIME/MINUTES/CODES [id number], 30 minutes (09:25) Lois Hua OTR/[facility]
[2018-05-16] MEDS: Normal Saline Flush 10 ML SYR IVP ×4 (11:59→16:22)
[2018-05-16] MEDS: Bisacodyl 5 MG TABEC PO (12:07)
--- NOTE | 2018-05-16 12:35 | PT.INTREAT ---
Date of service: 05/16/18 Time of Service: 12:35 PT Notes Inpatient Physical Therapy Treatment Note [facility] Date: 05/16/18 PRECAUTIONS: Fall SUBJECTIVE: Kam is upset that he has not had a bowel movement in about 5 days. He is agreeable to particiapting in PT. OBJECTIVE: PAIN: Minimal c/o pain in low back and left leg BED MOBILITY/TRANSFERS Supine-sit: I Sit-stand: I Stand-sit: I GAIT Assistive Device: No AD Weight bearing: Full Assist: S Distance: Approx 500' Deviation: Slow pace THEREX: Patient completed functional [id number] exercise x10. NEURO RE-ED: Patient completed several static balance exercises including SLS, tandem stance, and feet together with eyes closed. Patient requires CGA?Min A for all balance activities. ASSESSMENT: Patient tolerated session well with minimal complaints. He was able to tolerate a progression in gait distance without assistive device with supervision. Patient was also able to tolerate the addition of several static balance activities requiring CGA?Min A for safety. Patient would benefit from continued participation in a balance retraining program. Continue with PTs POC PLAN: Continue with PT's POC TREATMENT CODE/TIME: 35 minutes; [id number], [id number]
--- NOTE | 2018-05-16 12:40 | PTTR_ITS ---
Date of service: 05/16/18 Time of Service: 12:35 PT Notes Inpatient Physical Therapy Treatment Note [facility] Date: 05/16/18 PRECAUTIONS: Fall SUBJECTIVE: Kam is upset that he has not had a bowel movement in about 5 days. He is agreeable to particiapting in PT. OBJECTIVE: PAIN: Minimal c/o pain in low back and left leg BED MOBILITY/TRANSFERS Supine-sit: I Sit-stand: I Stand-sit: I GAIT Assistive Device: No AD Weight bearing: Full Assist: S Distance: Approx 500' Deviation: Slow pace THEREX: Patient completed functional pie-[id number] exercise x10. NEURO RE-ED: Patient completed several static balance exercises including SLS, tandem stance, and feet together with eyes closed. Patient requires CGA?Min A for all balance activities. ASSESSMENT: Patient tolerated session well with minimal complaints. He was able to tolerate a progression in gait distance without assistive device with supervision. Patient was also able to tolerate the addition of several static balance activities requiring CGA?Min A for safety. Patient would benefit from continued participation in a balance retraining program. Continue with PTs POC PLAN: Continue with PT's POC TREATMENT CODE/TIME: 35 minutes; 11910, [id number]
--- NOTE | 2018-05-16 13:25 | PDOC.CMPRO ---
- If Service Date Differs Date of service: 05/16/18 Time of Service: 13:25 Care Management Progress Note S/O: Kam will transition to SB1 today for antibiotic therapy. Per PT he could have deep massage therapy and participate in maintenance program while he is in SB1 it will need to be part of the swing bed orders. CM reviewed contact with patient and reviewed options for assisted living. Pallavi Humphrey is a 73 year old male admitted with acute renal insufficiency and positive blood cultures for MSSA. Kam does have an area on his right hand that appears less red and swollen from what he reports the redness started after an IV in that hand. P: Kam will transition to SB1 today 6 weeks of antibiotics. Once IV antibiotics are complete he will then need oral Keflex daily for the remainder of his life per MD. Kam has a goal to transition to assisted living CM to compete the [employer] application and review other options currently there is not many assisted living opportunities. CM will also assist patient in contacting subsidized housing to discuss moving to one level housing.
--- NOTE | 2018-05-16 13:43 | CMPROGNOTE_ITS ---
- If Service Date Differs Date of service: 05/16/18 Time of Service: 13:25 Care Management Progress Note S/O: Kam will transition to SB1 today for antibiotic therapy. Per PT he could have deep massage therapy and participate in maintenance program while he is in SB1 it will need to be part of the swing bed orders. CM reviewed contact with patient and reviewed options for assisted living. Pallavi Humphrey is a 73 year old male admitted with acute renal insufficiency and positive blood cultures for MSSA. Kam does have an area on his right hand that appears less red and swollen from what he reports the redness started after an IV in that hand. P: Kam will transition to SB1 today 6 weeks of antibiotics. Once IV antibiotics are complete he will then need oral Keflex daily for the remainder of his life per MD. Kam has a goal to transition to assisted living CM to compete the [employer] application and review other options currently there is not many assisted living opportunities. CM will also assist patient in contacting subsidized housing to discuss moving to one level housing.
[2018-05-16 15:05] VITALS: BP 117/65; PULSE 73; RESP 19; TEMP 36.8; O2SAT 95
[2018-05-16] MEDS: Pantoprazole 40 MG VIAL IVP (16:21)
--- NOTE | 2018-05-16 18:34 | PT.INDS ---
Date of service: 05/16/18 Time of Service: 15:29 PT Notes Inpatient Physical Therapy Discharge Summary Dates: 05/16/2018 Dates of Service: 05/12/18 through 05/16/18 Referring Doctor: Dr. Soto PT Orders: PT CONSULT: eval and treat Precautions: fall, standard Patient Profile/Admitting Diagnosis: Patient admitted 05/02/18 due to MSSA bacteremia and right hand cellulitis. He transitioned from the ICU to Med Surg yesterday afternoon and is awaiting further cardiac testing today. PMHX: DONTAE, HTN, CAD with h/o STEMI 12/2017 and s/p AICD placement; CHF; DM; COPD Social History/Home Situation: Patient lives independently in an apartment in [place]. He has a significant other who is supportive. He is normally independent, and gets around without an assistive device. He admits to balance issues, and had been attending outpatient PT as recently as February 2018 to address this. Equipment Owned/DME: Has FWW, which he does not currently utilize Subjective: Kam continues to complain about her right hand still being sore comparatively less today than the previous days. He said that he is happy about finally being able to defecate after 5 days which has really made him feel a lot better. He states that he hopes to continue with skilled PT services to continue to strengthen his body. He is agreeable to a balance progression program while he is here under swing bed status. He states that he has been on stairs in the inpatient therapy gym gym but would like to hold off on doing the stairs at the hospital for now. Objective: General Observation: Lying in bed . Mental Status: A&Ox3. Pain: Right hand is still sore ROM: Right Upper Extremity: Functional opening and closing of hand seen. Shoulder, elbow, and wrist joints WFL. Left Upper Extremity: Grossly WFL Right Lower Extremity: Grossly WFL Left Lower Extremity: Grossly WFL Strength: Right Upper Extremity: Shoulder flexion 3-/5. Biceps 3/5 or greater. Epidemiology Investigator is weak, but equal. Left Upper Extremity: Shoulder flexion 3-/5. Biceps 3/5 or greater. Right Lower Extremity: Hip flexion 5/5. Quads 5/5. HS 4/5. Ankle DF 4+/5. Left Lower Extremity: Hip flexion 4+/5, with reports of lateral hip pain. Quads 5/5. HS 4/5. Ankle DF 4+/5. Bed Mobility/Transfers: supine->sit: independent sit->supine: independent sit->stand: Independent stand->sit: Independent Gait: Per LADLE REPAIRER documentation patient ambulated about 500 feet on MedSurg floors without an assistive device requiring only supervision. Balance: Static Sitting: Normal Dynamic Sitting: Normal Static Standing: Good Dynamic Standing: Good Special Tests: Patient has declined balance assessment during this session as he states he has just had a major bowel movement after 5 days and asked if it can be done next week. Mobility Limitations Standardized Measure [facility] AM-PAC 6 clicks Basic Mobility Inpatient Short Form: Raw Score: 23 CMS Score: 11.20% deficit Informed Consent/Education: Patient instructed in purpose of PT consult and plan of care. Patient is agreeable to new PT POC as indicated below. Assessment: Patient is a 73 year old male referred to physical therapy services with the diagnosis of MSSA bacteremia and cellulitis of the right hand. He has thus far demonstrated improvement in mobility levels as demonstrated above under bed mobility/transfer levels . He continues to require skilled PT intervention to address these issues and to maximize safety and mobility to facilitate a safe return home once medically stable. He currently demonstrates the following impairment level findings: 1. Decreased LLE strength 2. Decreased balance with small WONG or dynamic movements 3. Decreased activity tolerance Impairments are contributing to the following functional limitations: 1. Unable to safely ambulate community distances 2. Unable to safely ambulate household distances independently 3. Unable to manage a flight of stairs independently 4. Fall risk Patient is assessed as Low 02017 complexity based on the following: History: 73 year old male with complicated medical history admitted for medical management of right hand cellulitis and MSSA bacteremia Examination: Underlying impairments functional limitations as noted above Presentation: evolving Decision Making: Low complexity Goals: Goals X1 week 1. Patient will dependently negotiate a flight of stairs without an assistive device with no report of increased pain or dyspnea 2. Patient will score 28/28 on the TInetti/AIDA balance test in order to reduce fall risk 3. Patient will demonstrate gait speed of at least 1.5 m/s in order to facilitate return to community ambulation 4. Patient will demonstrate 100% mastery of room exercises as part of his functional maintenance program Plan of Care/Treatment: Patient converts to swing bed status as of 05/17/2018 with plan to continue skilled PT services OD twice a week for 2 weeks for strength, balance, and ambulation progression. Plan of care has been reviewed with the LADLE REPAIRER providing the service under Physical Therapy direction. Initiate Physical Therapy intervention for strengthening, bed mobility, transfers, gait, stairs, balance training, use of assistive device. DISCHARGE RECOMMENDATIONS: Patient may benefit from continued home health services upon discharge from this hospital in order to facilitate a smooth transition to home, evaluate home safety, and establish/implement a functional maintenance program to maintain and achieve gains in therapy. TREATMENT CODE/TIME: 16 minutes [id number] beginning at 15:29 PM. Thank you for this referral. Bridget Cochran, PT, DPT, CLT [facility]
--- NOTE | 2018-05-16 18:54 | INDS_ITS ---
Date of service: 05/16/18 Time of Service: 15:29 PT Notes Inpatient Physical Therapy Discharge Summary Dates: 05/16/2018 Dates of Service: 05/12/18 through 05/16/18 Referring Doctor: Dr. Soto PT Orders: PT CONSULT: eval and treat Precautions: fall, standard Patient Profile/Admitting Diagnosis: Patient admitted 05/02/18 due to MSSA bacteremia and right hand cellulitis. He transitioned from the ICU to Med Surg yesterday afternoon and is awaiting further cardiac testing today. PMHX: DONTAE, HTN, CAD with h/o STEMI 12/2017 and s/p AICD placement; CHF; DM; COPD Social History/Home Situation: Patient lives independently in an apartment in [place]. He has a significant other who is supportive. He is normally independent, and gets around without an assistive device. He admits to balance issues, and had been attending outpatient PT as recently as February 2018 to address this. Equipment Owned/DME: Has FWW, which he does not currently utilize Subjective: Kam continues to complain about her right hand still being sore comparatively less today than the previous days. He said that he is happy about finally being able to defecate after 5 days which has really made him feel a lot better. He states that he hopes to continue with skilled PT services to continue to strengthen his body. He is agreeable to a balance progression program while he is here under swing bed status. He states that he has been on stairs in the inpatient therapy gym gym but would like to hold off on doing the stairs at the hospital for now. Objective: General Observation: Lying in bed . Mental Status: A&Ox3. Pain: Right hand is still sore ROM: Right Upper Extremity: Functional opening and closing of hand seen. Shoulder, elbow, and wrist joints WFL. Left Upper Extremity: Grossly WFL Right Lower Extremity: Grossly WFL Left Lower Extremity: Grossly WFL Strength: Right Upper Extremity: Shoulder flexion 3-/5. Biceps 3/5 or greater. Core Java Software Engineer is weak, but equal. Left Upper Extremity: Shoulder flexion 3-/5. Biceps 3/5 or greater. Right Lower Extremity: Hip flexion 5/5. Quads 5/5. HS 4/5. Ankle DF 4+/5. Left Lower Extremity: Hip flexion 4+/5, with reports of lateral hip pain. Quads 5/5. HS 4/5. Ankle DF 4+/5. Bed Mobility/Transfers: supine->sit: independent sit->supine: independent sit->stand: Independent stand->sit: Independent Gait: Per ROLLING MACHINE TENDER documentation patient ambulated about 500 feet on MedSurg floors without an assistive device requiring only supervision. Balance: Static Sitting: Normal Dynamic Sitting: Normal Static Standing: Good Dynamic Standing: Good Special Tests: Patient has declined balance assessment during this session as he states he has just had a major bowel movement after 5 days and asked if it can be done next week. Mobility Limitations Standardized Measure [facility] AM-PAC 6 clicks Basic Mobility Inpatient Short Form: Raw Score: 23 CMS Score: 11.20% deficit Informed Consent/Education: Patient instructed in purpose of PT consult and plan of care. Patient is agreeable to new PT POC as indicated below. Assessment: Patient is a 73 year old male referred to physical therapy services with the diagnosis of MSSA bacteremia and cellulitis of the right hand. He has thus far demonstrated improvement in mobility levels as demonstrated above under bed mobility/transfer levels . He continues to require skilled PT intervention to address these issues and to maximize safety and mobility to facilitate a safe return home once medically stable. He currently demonstrates the following impairment level findings: 1. Decreased LLE strength 2. Decreased balance with small WONG or dynamic movements 3. Decreased activity tolerance Impairments are contributing to the following functional limitations: 1. Unable to safely ambulate community distances 2. Unable to safely ambulate household distances independently 3. Unable to manage a flight of stairs independently 4. Fall risk Patient is assessed as Low 43443 complexity based on the following: History: 73 year old male with complicated medical history admitted for medical management of right hand cellulitis and MSSA bacteremia Examination: Underlying impairments functional limitations as noted above Presentation: evolving Decision Making: Low complexity Goals: Goals X1 week 1. Patient will dependently negotiate a flight of stairs without an assistive device with no report of increased pain or dyspnea 2. Patient will score 28/28 on the TInetti/AIDA balance test in order to reduce fall risk 3. Patient will demonstrate gait speed of at least 1.5 m/s in order to facilitate return to community ambulation 4. Patient will demonstrate 100% mastery of room exercises as part of his functional maintenance program Plan of Care/Treatment: Patient converts to swing bed status as of 05/17/2018 with plan to continue skilled PT services OD twice a week for 2 weeks for strength, balance, and ambulation progression. Plan of care has been reviewed with the ROLLING MACHINE TENDER providing the service under Physical Therapy direction. Initiate Physical Therapy intervention for strengthening, bed mobility, transfers, gait, stairs, balance training, use of assistive device. DISCHARGE RECOMMENDATIONS: Patient may benefit from continued home health services upon discharge from this hospital in order to facilitate a smooth transition to home, evaluate home safety, and establish/implement a functional maintenance program to maintain and achieve gains in therapy. TREATMENT CODE/TIME: 16 minutes [id number] beginning at 15:29 PM. Thank you for this referral. Bridget Cochran, PT, DPT, CLT [facility]
--- NOTE | 2018-05-16 19:02 | W.PM.DS.N ---
Date of service: 05/16/18 Time of Service: 15:00 DS: Diagnosis Discharge Diagnosis (1) Sepsis: Status: Acute (2) Cellulitis of right hand: Status: Acute (3) MSSA bacteremia: Status: Acute (4) Fever: Status: Resolved (5) Acute kidney injury superimposed on chronic kidney disease: Status: Acute (6) Hypertension: Status: Chronic (7) CAD (coronary artery disease): Status: Chronic (8) CHF (congestive heart failure): Status: Chronic (9) Diabetes mellitus, type II: Status: Chronic (10) Chronic pain disorder: Status: Chronic (11) Chronic obstructive pulmonary disease: Status: Chronic (12) Nausea & vomiting: Status: Resolved (13) Chest pain: Status: Acute Discharge Plan Disposition Patient Disposition: [facility] SWING BED LEVEL 1 Condition: Stable Discharge Details Reason For Visit: ACUTE RENAL INSUFFICIENCY Admit Date/Time: 05/02/18 12:26 Admit Provider: Patrick Moctezuma Attending Provider: Patrick Moctezuma Primary Care Provider: Tien Galicia [facility] Course Hospital Course: Mr Pittman is a 73 year old male with PMHx of CAD s/p cardiac arrest, STEMI, AICD placement in 2018, as well as h/o TAVR, ICMO/chronic systolic CHF, ANNABELLE noncompliant with CPAP, and CKD, who was admitted to [facility] on 05/02/18 with DONTAE on CKD due to dehydration, presumably due to accidentally taking a double dose of lasix. He was cautiously hydrated intravenously with improvement of his kidney function. However, on 05/06, the patient spiked a fever. His septic workup ended up revealing MSSA bacteremia, likely stemming from an infected IV site in his R wrist, where he developed cellulitis. He met sepsis criteria. 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 However, once the speciation/sensitivities of blood cultures became known, the patient was switched to ancef 2 gram IV Q 8 hrs. With this, his blood cultures did clear by 05/10/18, though the blood cultures from 05/08 were still positive. This, in addition to the fact that the patient has a h/o TAVR in addition to an AICD, warranted a repeat TTE and, eventually, a transesophageal echocardiogram, done on 05/12/18, with no evidence of endocarditis or vegetations on AICD leads. Interestingly, the R hand cellulitis did not improve with ancef alone but did respond to addition of vancomycin. It was evaluated by orthopedics who felt that no surgical intervention was indicated for Mr Pittman's hand. Case was discussed with ID at [facility] [[email or web address]] - Dr Machado felt that the patient had two options - either removal/exchange of AICD or lifelong PO keflex post completion of 6 weeks of IV ancef with repeats of blood cultures in weekly cycles and outpatient ID follow up. The patient met with palliative care on this admission to discuss his goals of care. He did not want transfer to a different hospital and did not want to have his AICD exchanged, picking the latter option. At this point, it is felt that the patient is improving steadily and is expected to complete his antibiotics via his LUE midline after his last dose of antibiotics on 06/20/18. His insulins were adjusted as there was an episode of hypoglycemia on this admission. The patient did admit to being depressed on this admission, but not suicidal, and is already currently feeling better. Finally, the patient has been refusing to wear CPAP on this admission. He is being discharged to Swing Bed level 1 today to complete his IV abx. Home Meds and New Rx's Prescriptions: New furosemide 40 mg Tablet 40 mg PO DAILY Qty: 0 RF: 0 cefazolin 1 gram Recon Soln 2,000 mg IVPB Q8H Qty: 0 RF: 0 sennosides [Senokot] 8.6 mg Tablet 1 tab PO BID Qty: 0 RF: 0 ipratropium-albuterol 0.5 mg-3 mg(2.5 mg base)/3 mL Solution For Nebulization 3 ml UPD Q6H PRN PRNQty: 0 RF: 0 albuterol sulfate 2.5 mg /3 mL (0.083 %) Solution For Nebulization 2.5 mg UPD Q2H PRN PRNQty: 0 RF: 0 polyethylene glycol 3350 17 gram Powder In Packet 17 g PO DAILY PRN PRN (Reason: Constipation) Qty: 0 RF: 0 pantoprazole [Protonix] 40 mg Recon Soln 40 mg IVP Q24H Qty: 0 RF: 0 docusate sodium [Colace] 100 mg Capsule 100 mg PO TID Qty: 0 RF: 0 mirtazapine [Remeron] 15 mg Tablet 15 mg PO QPM Qty: 0 RF: 0 alum-mag hydroxide-simeth [Mag-Al Plus] 200-200-20 mg/5 mL Suspension 30 ml PO Q2H PRN PRNQty: 0 RF: 0 heparin (porcine) 5,000 unit/mL Solution 5,000 units subcut Q8H Qty: 0 RF: 0 Novolog Flexpen U-100 Insulin 100 unit/mL Insulin Pen subcut 0800,1200,1700 Qty: 0 RF: 0 vancomycin in dextrose 5 % 1 gram/200 mL Piggyback 1 g IVPB Q16H Qty: 0 RF: 0 ondansetron HCl (PF) 4 mg/2 mL Solution 4 mg IVP Q4H PRN PRNQty: 0 RF: 0 Continued Levemir FlexTouch U-100 Insuln 100 unit/mL (3 mL) insulin pen 20 unit subcut QAM 30 Days Qty: 1 RF: 3 melatonin 3 mg tablet 9 mg PO HS RF: 0 atorvastatin 20 mg tablet 20 mg PO DAILY RF: 0 nitroglycerin [Nitrostat] 0.4 mg tablet, sublingual 0.4 mg SL PRN RF: 0 magnesium oxide 400 mg capsule 400 mg PO BID RF: 0 potassium chloride [Klor-Con 10] 10 mEq tablet extended release 10 meq PO DAILY RF: 0 colchicine 0.6 mg tablet 0.6 mg PO BID PRN (Reason: gout attack) Qty: 30 RF: 3 pregabalin 200 mg capsule 400 mg PO BID Qty: 360 RF: 3 carvedilol 12.5 mg tablet 12.5 mg PO BID RF: 0 Trelegy Ellipta 100-62.5-25 mcg blister with device 1 inh IH DAILY RF: 0 oxycodone 10 mg tablet 10 mg PO Q4H MDD 40 mg PRN (Reason: pain) Qty: 56 RF: 0 oxycodone 10 mg tablet 10 mg PO .Q4 MDD 40 mg PRN (Reason: pain) Qty: 56 RF: 0 aspirin 81 MG tablet,delayed release (DR/EC) 81 mg PO DAILY RF: 0 KENALOG 0.1% CREAM 454 GM CR 1 melinda Topical PRN Qty: 1 RF: 11 Devilbiss Disposable Nebulizer 1 EACH misc 1 ea Miscellaneous QID PRNQty: 1 RF: 0 blood-glucose meter 1 EACH misc 1 ea Miscellaneous BID Qty: 1 RF: 0 pen needle, diabetic [BD Ultra-Fine Rebecca Pen Needle] 1 EACH needle 1 ea Miscellaneous DAILY 30 Days Qty: 1 RF: 6 lancets 1 EACH misc 1 ea Miscellaneous BID Qty: 200 RF: 3 lancing device with lancets 1 EACH kit 1 ea Miscellaneous DAILY PRNQty: 1 RF: 0 Blood Glucose Test 1 EACH strip 1 ea Miscellaneous TID Qty: 200 RF: 6 cyclobenzaprine 10 MG tablet 10 mg PO BID PRN30 Days Qty: 270 RF: 3 albuterol sulfate [ProAir HFA] 8.5 GM HFA aerosol inhaler 2 puff Inhalation Q2H PRNQty: 3 RF: 6 albuterol sulfate 1.25 MG/3 ML solution for nebulization 1.25 mg Inhalation QID Qty: 100 RF: 6 triamcinolone acetonide 15 GM cream 1 melinda Topical TID 90 Days Qty: 1 RF: 11 fluticasone propionate [Flonase Allergy Relief] 9.9 ML spray,suspension 2 spry NS DAILY Qty: 1 RF: 6 amlodipine 10 MG tablet 10 mg PO DAILY Qty: 90 RF: 3 fenofibrate 150 mg capsule 145 mg PO DAILY RF: 0 acetaminophen [Acetaminophen Extra Strength] 500 MG tablet 1,000 mg PO BID PRN PRNRF: 0 Discontinued metformin 500 mg tablet 1,000 mg PO BID Qty: 360 RF: 3 spironolactone 25 mg tablet 25 mg PO DAILY 90 Days Qty: 90 RF: 3 atenolol 100 mg tablet 100 mg PO DAILY Qty: 180 RF: 3 lisinopril 20 MG tablet 20 mg PO DAILY 90 Days Qty: 90 RF: 3 glipizide 5 MG tablet 5 mg PO BID Qty: 180 RF: 3 Januvia 50 MG tablet 50 mg PO DAILY 90 Days Qty: 90 RF: 3 furosemide [Lasix] 20 MG tablet 20 mg PO DAILY PRN30 Days Qty: 30 RF: 0 Discharge Instructions Stand Alone Forms: Nursing Discharge Form Referrals: Tien Galicia DO [Primary Care Provider] - 05/13/18 8:30 am Activity:: Activity as Tolerated Equipment/Supplies:: No Equipment Needed Diet:: Carb Counting Discharge Orders Discharge Orders: Discharge Order (Routine); Ordered 05/16/18 Ordered By: Lazara Soto Exam Narrative Exam Narrative: General: Obese male, sitting up in a chair, comfortable HEENT: EOMI, MMM Heart: RRR, + KARINA Lungs: CTAB GI: abdomen is soft, nontender, nondistended Extremities: dorsal surface of R hand with a scabbed over lesion and surrounding induration with no erythema left; no obvious drainage. Full ROM of hand/fingers/wrist. Very trace edema BLE's, if any. DS: Data Vitals/I&O Vitals and I&O: Vital Signs Temperature 36.8 C 05/16/18 15:05 Temperature Source Tympanic 05/16/18 15:05 Pulse 73 05/16/18 15:05 Pulse Rhythm Regular 05/16/18 08:08 Pulse 60 05/11/18 09:00 Respiratory Rate 19 05/16/18 15:05 Respiratory Effort Non-Labored 05/16/18 08:08 Respiratory Depth Normal 05/16/18 08:08 Respiratory Pattern Normal 05/16/18 08:08 Blood Pressure 117/65 05/16/18 15:05 Blood Pressure Mean 83 05/11/18 08:57 Blood Pressure Position Sitting 05/09/18 21:00 Pulse Oximetry 95 05/16/18 15:05 Oxygen Delivery Method Room Air 05/16/18 15:05 Oxygen Flow Rate 0 05/16/18 15:05 Fraction of Inspired Oxygen (FIO2) 30 05/07/18 09:56 Pain Level 5 05/16/18 09:22 Comment 05/16/18 03:45 Intake & Output 05/15/18 05/16/18 05/16/18 23:59 11:59 23:59 Intake Total 390 / 1390 1809.166 / 3219.166 1410 / 3219.166 Balance 390 / 1390 1809.166 / 3219.166 1410 / 3219.166 Weight 85.9 kg Intake: IV 150 / 450 839.166 / 1069.166 230 / 1069.166 Oral 240 / 940 970 / 2150 1180 / 2150 Other: Urine Appearance Clear Comment Void x1 in the toilet. Void x1 in the toilet. Stool Size Large Stool Characteristics Soft Formed Brown Voiding Methods Toilet Toilet Toilet Completed studies during hospitalization [Text1]: CXR 05/02/18: No acute abnormality. Echo 05/02/18;Excellent prosthetic valve function without evidence for perivalvular leak. Other valves unchanged. Summary: 1. Left ventricle: The cavity size was normal. Wall thickness was increased in a pattern of moderate LVH. Systolic function was hyperdynamic. The estimated ejection fraction was 65-70%. Wall motion was normal; there were no regional wall motion abnormalities. 2. Aortic valve: A bioprosthesis was present and functioning normally. Peak velocity (S): 2.3m/sec. Mean gradient (S): 13.6mm Hg. Valve area (Vmean): 1.5cm^2. 3. Mitral valve: Severely calcified annulus. 4. Left atrium: The atrium was mildly dilated. 5. Right ventricle: The cavity size was normal. Wall thickness was normal. Cardiac device wire noted in right ventricle. Systolic function was normal. 6. Right atrium: The atrium was dilated. CXR 05/06/18: No evidence of acute cardiopulmonary disease. CT abdomen/pelvis: No evidence of an acute intra-abdominal or pelvic abnormality. There is fatty infiltration of the liver and evidence of diverticulosis without findings to suggest diverticulitis. There is no evidence of an acute appendix. There is no evidence of bowel obstruction. CXR 05/08/18: Findings most consistent with congestive failure. The possibility of a concomitant acute pneumonitis is raised. TTE 05/08/18: No evidence of endocarditis, however, this cannot be ruled out, as sensitivity for this finding on TTE is <50%. Apparent increase in gradient across the TAVR valve. Summary: 1. Left ventricle: The cavity size was normal. Wall thickness was increased in a pattern of moderate LVH. Systolic function was hyperdynamic. The estimated ejection fraction was 65-70%. Wall motion was normal; there were no regional wall motion abnormalities. 2. Aortic valve: A bioprosthesis (TAVR Wiley Shon) was present and functioning normally. Transvalvular velocity was increased more than expected. Peak velocity (S): 3.3m/sec. Mean gradient (S): 24.9mm Hg. 3. Mitral valve: Severely calcified annulus. Moderately thickened leaflets. Mobility was mildly restricted. Valve area by pressure half-time: 2cm^2. 4. Left atrium: The atrium was mildly dilated. 5. Right ventricle: The cavity size was mildly dilated. Wall thickness was normal. Systolic function was normal. 6. Right atrium: The atrium was mildly dilated. 7. Pulmonary arteries: Pulmonary systolic pressure was mildly increased. PA peak pressure: 48mm Hg (S). CT head without contrast 05/10/18: Dorsal soft tissue swelling. No visible abscess. CASSI 05/12/18: 1. Left ventricle: Systolic function was normal. The estimated ejection fraction was 60-65%. 2. Aortic valve: A prosthesis was present . The sewing ring appeared normal, had no rocking motion, and showed no evidence of dehiscence. No paravalvular leak. No abscess appreciated. No evidence of vegetation. 3. Mitral valve: No evidence of vegetation. There was mild regurgitation. 4. Left atrium: No evidence of thrombus in the atrial cavity or appendage. There was spontaneous echo contrast (smoke). The appendage was well visualized and of normal size. Emptying velocity was reduced. 5. Right ventricle: Pacer wire or catheter noted in right ventricle, no vegetation appreciated.. 6. Atrial septum: No defect or patent foramen ovale was identified by color flow Doppler or agitated saline. There was no atrial level shunt. Labs on day of discharge: Labs from last 24 hours 05/16/18 05/16/18 07:10 07:10 WBC 10.53 RBC 3.85 L Hgb 11.2 L Hct 34.3 L MCV 89.1 MCH 29.1 MCHC 32.7 RDW 16.7 H Plt Count 384 MPV 9.6 Immature Gran % 0.7 Neutrophils % 56.6 Lymphocytes % 32.4 Monocytes % 7.3 Eosinophils % 2.5 Basophils % 0.5 Absolute Neutrophils 5.97 Absolute Lymphocytes 3.41 H Absolute Monocytes 0.77 H Absolute Eosinophils 0.26 Absolute Basophils 0.05 Sodium 138 Potassium 4.0 Chloride 101 Carbon Dioxide 27.7 Anion Gap 9.3 BUN 32 H Creatinine 1.84 H Estimated GFR/1.73 m2 36.24 Glucose 156 H Calcium 9.1 Magnesium 2.6 H C-Reactive Protein 2.40 H [facility] Medical History Palliative care patient (Chronic) Cellulitis of right hand (Acute) MSSA bacteremia (Acute) STEMI (ST elevation myocardial infarction) (Chronic) Sleep apnea (Chronic 12/28/15) Sciatica of left side (Chronic 03/26/16) Primary osteoarthritis involving multiple joints (Chronic 01/04/16) Pain in lower limb (Chronic 02/18/89) Nonallergic rhinitis (Resolved 01/28/15) Leg pain, left (Chronic 01/17/16) Left lumbar radiculopathy (Chronic 10/26/16) Hypertriglyceridemia (Chronic 12/31/14) Dyspnea on exertion (Chronic 09/20/15) Distal paresthesia (Chronic 02/16/14) DM w/o complication type II, uncontrolled (Chronic 11/12/13) DM neuro manif type II (Chronic) Chronic pain disorder (Chronic 10/26/16) Chronic obstructive pulmonary disease (Chronic 01/21/17) Adjustment disorder, unspecified (Resolved 09/03/16) Acute gastroenteritis (Resolved) Aortic stenosis (Resolved) Discharge planning issues (Resolved) Lumbar back pain with radiculopathy affecting left lower extremity (Chronic) Neuropathy, lateral femoral cutaneous nerve (Chronic) Influenza with respiratory manifestations (Resolved 04/16/14) Diabetes mellitus, type II (Chronic) Hypertension (Chronic) Hyperlipidemia (Chronic) Obesity (Chronic) Peripheral neuropathy (Chronic) Weakness (Chronic 04/16/14) s/p respiratory failure (Chronic 04/16/14) s/p mechanical ventilation (Chronic 04/16/14) Encounter for physical therapy (Chronic 04/16/14) Surgical History H/O surgical procedure (Chronic) Biopsy Skin of left catholic (12/10/14) Central line for TPN (03/31/14) Family History Mother Stroke Father No problems noted. Brother No problems noted. Social History Smoking/Tobacco Use Status: Current-Occasional Tobacco Type: cigarettes and cigars Tobacco: How many years used: 60 Quit status: considering quitting Counseling given: counseling >3 minutes Alcohol Intake: former Drug use: Never Substance use type: does not use Caregiver/Support person: No Household members: none Housing: apartment Number of Children: 0 Communication Needs: Corrective Lenses Education Level: high school Do you need help understanding health information?: Often Pets and animals: Yes Pets and animals: dog(s) What is your relationship status?: never How often do you talk on the phone with friends or family?: twice per week How often do you get together with friends or relatives?: once per week Panel score (0-1 are the most socially isolated patients): 1 What type of physical activity do you participate in: bicycling and other Details: stationary bike Duration: 15-30 minutes/day Frequency: 5-6 times per week Agree to transfusion: Yes Seatbelt use: always Drive intox or ride w/intox medical van driver: No Water heater temp set <120 deg: Yes Working smoke detector in home: Yes Fire extinguisher in home: Yes Carbon monox detector in home: Yes Do you feel safe at home: Yes Do you feel safe in your relationship?: Yes
[2018-05-16] MEDS: Senna TAB 1 TAB PO (19:36)
[2018-05-16] MEDS: Mirtazapine 15 MG TAB PO (19:36)
== END 2018-05-16 19:43 | disposition swing bed (61) | DRG 872 ==
LOC: ER 12:52 → MS 13:47 → ICU 05-06 19:11 → MS 05-12 09:32 → ICU 05-19 12:48
PROVIDERS: Internal Medicine; Internal Medicine Interventional Cardiology; Nurse Practitioner; Admitting Provider Family Medicine; Emergency Provider Emergency Medicine; PCP Family Medicine; Visit Provider Internal Medicine
PROC: (CPT 93312; principal; 2018-05-12 11:30)
DX: R65.20 Severe sepsis without septic shock (principal); N17.9 Acute kidney failure, unspecified; I13.0 Hypertensive heart and chronic kidney disease with heart failure and stage 1 through stage 4 chronic kidney disease, or unspecified chronic kidney disease; I42.9 Cardiomyopathy, unspecified; T50.1X1A Poisoning by loop [high-ceiling] diuretics, accidental (unintentional), initial encounter; T82.7XXA Infection and inflammatory reaction due to other cardiac and vascular devices, implants and grafts, initial encounter; L03.113 Cellulitis of right upper limb; E86.0 Dehydration; B95.61 Methicillin susceptible Staphylococcus aureus infection as the cause of diseases classified elsewhere; E11.22 Type 2 diabetes mellitus with diabetic chronic kidney disease; I50.9 Heart failure, unspecified; N18.9 Chronic kidney disease, unspecified; J44.9 Chronic obstructive pulmonary disease, unspecified; G89.4 Chronic pain syndrome; G47.33 Obstructive sleep apnea (adult) (pediatric); I25.10 Atherosclerotic heart disease of native coronary artery without angina pectoris; I25.2 Old myocardial infarction; F17.210 Nicotine dependence, cigarettes, uncomplicated; E11.40 Type 2 diabetes mellitus with diabetic neuropathy, unspecified; E78.5 Hyperlipidemia, unspecified; Z86.74 Personal history of sudden cardiac arrest; Z51.5 Encounter for palliative care; Z95.810 Presence of automatic (implantable) cardiac defibrillator; Z91.19 Patient's noncompliance with other medical treatment and regimen; Z95.2 Presence of prosthetic heart valve; Z79.4 Long term (current) use of insulin
CPT/HCPCS: 36410; 36415; 36569; 80048; 80053; 87040; 87077; 87449; 87631; 93005; 93306; 93312; 94640; 97110; 97112; 97162; 97530; 97535; 99221; 99222; 99232; 99233; 99239; 99255; 99285; 71045; 71046; 73200; 74177; 80202; 81003; 83605; 83735; 83880; 84484; 85025; 85610; 85730; 86140; 87186; 93010; 93320; 93325; 94660; J0690; J1265; J1335; J1644; J1940; J2060; J2405; J3370; J3475; J3490; J7613; J7620

== ENCOUNTER → 2018-05-08 08:01 | Outpatient (BNVA) | payer OTHER, SELFPAY | PROVIDERS: PCP Family Medicine; Visit Provider Internal Medicine Cardiovascular Disease | DX: R69 Illness, unspecified (principal) ==

== ENCOUNTER → 2018-05-12 08:10 | Outpatient (BNVA) | payer OTHER, SELFPAY | PROVIDERS: PCP Family Medicine; Visit Provider Internal Medicine Interventional Cardiology | DX: R69 Illness, unspecified (principal) ==

== ENCOUNTER 2018-05-16 19:36 | Inpatient (IN) | payer OTHER, SELFPAY ==
--- NOTE | 2018-05-16 19:38 | W.PM.HP.N ---
Date of service: 05/16/18 Time of Service: 19:38 Assessment and Plan (1) MSSA bacteremia: Current visit: Yes Status: Acute Continue IV ancef 2 gram Q 8 hrs through last dose of 06/20/18. Post completion of abx, would need to have weekly blood cultures for several weeks while maintained on keflex 500 mg PO BID for remainder of his life to ensure that it is sufficient. (2) Cellulitis of right hand: Current visit: Yes Status: Acute Would continue IV vancomycin for 3-4 more days (3) CHF (congestive heart failure): Current visit: Yes Status: Chronic EF now normalized; ICMO. Continue asa, statin, coreg. Lasix is currently at 40 mg PO daily. Labs to be rechecked 05/21 - lasix may have to be decreased to home dose. (4) CAD (coronary artery disease): Current visit: Yes Status: Chronic Stable. Continue tx as above (5) Acute kidney injury superimposed on chronic kidney disease: Current visit: Yes Status: Acute At baseline. Follow up labs on 05/21. (6) Discharge planning issues: Current visit: Yes Status: Acute DNR/DNI. Does not want transfer to a tertiary care facility for AICD explantation/exchange. PT/OT consulted. (7) DVT prophylaxis: Current visit: Yes Status: Acute Heparin SC. History of Present Illness Chief Complaint: Transferring to [facility] bed level 1 for treatment of bacteremia Narrative: Mr Pittman is a 73 year old male with PMHx of CAD s/p cardiac arrest, STEMI, AICD placement in 2018, as well as h/o TAVR, ICMO/chronic systolic CHF, ANNABELLE noncompliant with CPAP, and CKD, who was admitted to [facility] on 05/02/18 with DONTAE on CKD due to dehydration, presumably due to accidentally taking a double dose of lasix. He was cautiously hydrated intravenously with improvement of his kidney function. However, on 05/06, the patient spiked a fever. His septic workup ended up revealing MSSA bacteremia, likely stemming from an infected IV site in his R wrist, where he developed cellulitis. He met sepsis criteria. 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 However, once the speciation/sensitivities of blood cultures became known, the patient was switched to ancef 2 gram IV Q 8 hrs. With this, his blood cultures did clear by 05/10/18, though the blood cultures from 05/08 were still positive. This, in addition to the fact that the patient has a h/o TAVR in addition to an AICD, warranted a repeat TTE and, eventually, a transesophageal echocardiogram, done on 05/12/18, with no evidence of endocarditis or vegetations on AICD leads. Interestingly, the R hand cellulitis did not improve with ancef alone but did respond to addition of vancomycin. It was evaluated by orthopedics who felt that no surgical intervention was indicated for Mr Pittman's hand. Case was discussed with ID at [facility] - Dr Machado felt that the patient had two options - either removal/exchange of AICD or lifelong PO keflex post completion of 6 weeks of IV ancef with repeats of blood cultures in weekly cycles and outpatient ID follow up. The patient met with palliative care on this admission to discuss his goals of care. He did not want transfer to a different hospital and did not want to have his AICD exchanged, picking the latter option. At this point, it is felt that the patient is improving steadily and is expected to complete his antibiotics via his LUE midline after his last dose of antibiotics on 06/20/18. His insulins were adjusted as there was an episode of hypoglycemia on this admission. The patient did admit to being depressed on this admission, but not suicidal, and is already currently feeling better. Finally, the patient has been refusing to wear CPAP on this admission. He is being admitted to [facility] Bed level 1 today to complete his IV abx. Review of Systems Review of Systems 12 systems reviewed. Pertinent positives and negatives are as per HPI. Additionally, the patient continues to complain of R hand soreness. [facility] Social History Smoking/Tobacco Use Status: Current-Occasional Tobacco Type: cigarettes and cigars Tobacco: How many years used: 60 Quit status: considering quitting Counseling given: counseling >3 minutes Alcohol Intake: former Drug use: Never Substance use type: does not use Caregiver/Support person: No Household members: none Housing: apartment Number of Children: 0 Communication Needs: Corrective Lenses Education Level: high school Do you need help understanding health information?: Often Pets and animals: Yes Pets and animals: dog(s) What is your relationship status?: never How often do you talk on the phone with friends or family?: twice per week How often do you get together with friends or relatives?: once per week Panel score (0-1 are the most socially isolated patients): 1 What type of physical activity do you participate in: bicycling and other Details: stationary bike Duration: 15-30 minutes/day Frequency: 5-6 times per week Agree to transfusion: Yes Seatbelt use: always Drive intox or ride w/intox wrecking car driver: No Water heater temp set <120 deg: Yes Working smoke detector in home: Yes Fire extinguisher in home: Yes Carbon monox detector in home: Yes Do you feel safe at home: Yes Do you feel safe in your relationship?: Yes Meds Home Medications Medication Instructions Recorded Confirmed Type aspirin 81 mg PO DAILY tab-cap 05/05/12 05/02/18 History Kenalog 0.1% Cream 1 melinda TOPICAL PRN #1 12/31/14 05/02/18 Clinic Devil[facility]iss Disposable Nebulizer #1 ea 11/14/15 05/02/18 History blood-glucose meter #1 ea 09/03/16 05/02/18 History acetaminophen [Acetaminophen Extra 1,000 mg PO BID PRN PRN 10/17/16 05/02/18 History Strength] pen needle, diabetic [BD #1 box 03/18/17 05/02/18 Rx Ultra-Fine Rebecca Pen Needle] lancets #200 ea 04/25/17 05/02/18 Rx lancing device with lancets #1 kit 04/26/17 05/02/18 History Blood Glucose Test #200 strip 06/10/17 05/02/18 Rx cyclobenzaprine 10 mg PO BID PRN 30 Days #270 08/16/17 05/02/18 History tab-cap albuterol sulfate [ProAir HFA] 2 puff INHALATION Q2H PRN #3 08/23/17 05/02/18 History hfa.aer.ad albuterol sulfate 1.25 mg INHALATION QID #100 amp 08/30/17 05/02/18 Rx triamcinolone acetonide 1 melinda TOPICAL TID 90 Days #1 tube 09/13/17 05/02/18 Rx fluticasone propionate [Flonase 2 spry NS DAILY #1 unit 10/03/17 05/02/18 Rx Allergy Relief] amlodipine 10 mg PO DAILY #90 tab-cap 10/07/17 05/02/18 Rx fenofibrate 150 mg capsule 145 mg PO DAILY 11/21/17 05/04/18 History insulin detemir (U-100) 100 20 unit SUBCUT QAM 30 Days #1 ml 12/02/17 05/02/18 Rx unit/mL (3 mL) subcutaneous pen atorvastatin 20 mg tablet 20 mg PO DAILY tab 01/20/18 05/04/18 History magnesium oxide 400 mg capsule 400 mg PO BID cap 01/20/18 05/02/18 History melatonin 3 mg tablet 9 mg PO HS tab 01/20/18 05/02/18 History nitroglycerin 0.4 mg sublingual 0.4 mg SL PRN tab 01/20/18 05/02/18 History tablet colchicine 0.6 mg tablet 0.6 mg PO BID PRN #30 tab 01/24/18 05/02/18 Rx potassium chloride ER 10 mEq 10 meq PO DAILY 01/24/18 05/02/18 History tablet,extended release pregabalin 200 mg capsule 400 mg PO BID #360 cap 03/21/18 05/02/18 Rx carvedilol 12.5 mg tablet 12.5 mg PO BID tab 04/01/18 05/04/18 History fluticasone fur. 100 mcg-umeclid 1 inh IH DAILY 04/01/18 05/02/18 History 62.5 mcg-vilant 25 mcg inhalat.powder oxycodone 10 mg tablet 10 mg PO .Q4 PRN #56 tab MDD 40 mg 04/15/18 05/02/18 Rx oxycodone 10 mg tablet 10 mg PO Q4H PRN #56 tab MDD 40 mg 04/15/18 04/15/18 Rx albuterol sulfate 2.5 mg UPD Q2H PRN PRN #0 ml 05/16/18 Rx alum-mag hydroxide-simeth [Mag-Al 30 ml PO Q2H PRN PRN #0 ml 05/16/18 Rx Plus] cefazolin 2,000 mg IVPB Q8H #0 ea 05/16/18 Rx docusate sodium [Colace] 100 mg PO TID #0 cap 05/16/18 Rx furosemide 40 mg PO DAILY #0 tab 05/16/18 Rx heparin (porcine) 5,000 units SUBCUT Q8H #0 ml 05/16/18 Rx insulin aspart U-100 [Novolog 0 units SUBCUT 0800,1200,1700 #0 ml 05/16/18 Rx Flexpen U-100 Insulin] ipratropium-albuterol 3 ml UPD Q6H PRN PRN #0 ml 05/16/18 Rx mirtazapine [Remeron] 15 mg PO QPM #0 tab 05/16/18 Rx ondansetron HCl (PF) 4 mg IVP Q4H PRN PRN #0 ml 05/16/18 Rx pantoprazole [Protonix] 40 mg IVP Q24H #0 ea 05/16/18 Rx polyethylene glycol 3350 17 g PO DAILY PRN PRN #0 ea 05/16/18 Rx sennosides [Senokot] 1 tab PO BID #0 tab 05/16/18 Rx vancomycin in dextrose 5 % 1 g IVPB Q16H #0 ml 05/16/18 Rx Allergies Allergy/AdvReac Type Severity Reaction Status Date / Time codeine AdvReac Intermediate GI Upset Verified 04/01/18 08:30 gabapentin AdvReac Intermediate Dizziness/L Verified 04/01/18 08:30 ightheade Exam Narrative Exam Narrative: General: Very pleasant elderly male, in good spirits today, sitting in a chair Neurological: A&Ox3, no focal deficits Psychiatric: appropriate speech pattern/content; bright affect Skin: R hand lesion is healing; no erythema seen today. Some induration note HEENT: Atraumatic, normocephalic, EOMI, MMM, no JVD Cardiovascular: RRR, + KARINA Lungs: CTAB Gastrointestinal: abdomen is soft, nontender, nondistended Extremities: no e/c/c BLE's, 1+ pedal pulses B; R hand exam as above
[2018-05-16 20:15] VITALS: BP 148/77; PULSE 75; RESP 17; TEMP 36.8; O2SAT 94
[2018-05-16] MEDS: ceFAZolin 2,000 MG in Normal Saline 100 ML 200 MG IVPB (22:41)
[2018-05-16 23:05] VITALS: BP 120/71; PULSE 81; RESP 17; TEMP 37; O2SAT 94
[2018-05-16] MEDS: Heparin 5,000 UNITS/ML VIAL 5000 UNITS SC (23:44)
[2018-05-17] MEDS: Normal Saline Flush 10 ML SYR IVP ×6 (01:52→23:29)
[2018-05-17] MEDS: Acetaminophen 325 MG TAB PO ×4 (05:27→20:54)
[2018-05-17] MEDS: ceFAZolin 2,000 MG in Normal Saline 100 ML 200 MG IVPB ×3 (05:28→22:08)
[2018-05-17 07:18] LABS: HCT 35.1 % (40.0-50.0); HGB 11.4 g/dL (13.5-17.5); Mean Corp. HGB Concentration 32.5 g/dL (32.0-36.0); Mean Corpuscular Volume 89.3 fL (80-95); Mean Platelet Volume 9.4 fL (8.0-11.0); Platelet Count 396 x1000/uL (130-400); RBC 3.93 m/cumm (4.50-6.00); RBC Distribution Width 16.6 % (11.8-14.1); White Blood Cell Count 9.42 k/cumm (4.4-10.8)
[2018-05-17 07:23] VITALS: BP 162/77; PULSE 78; RESP 14; TEMP 36.8; O2SAT 95
--- NOTE | 2018-05-17 08:15 | PHARADMIT ---
Addendum entered by Rancho Tucker III 06/19/18 11:20: swingbed for IV antibiotics through 06/20/18 last dose at 6AM then change to Cephalexin for fdc suppression VS-OK BP-170/3 K+3.6 SCr-1.25 H&H,Plts,WBC-OKs FSBS-136 wgt- 85.1 kg No BM No Changes Addendum entered by Rancho Tucker III 06/18/18 13:03: swingbed for IV antibiotics through 06/20/18 VS-OK BP-169/78 No Labs FSBS-176 wgt- 85.8 kg No BM No Changes Addendum entered by Rancho Tucker III 06/15/18 07:59: swingbed for IV antibiotics through 06/20/18 VS-OK BP-130/66 No Labs FSBS-164 wgt- 85.4 kg No BM No Changes Addendum entered by Rancho Tucker III 06/14/18 12:16: swingbed for IV antibiotics through 06/20/18 VS-OK BP-149/85 No Labs FSBS-153 No BM No Changes Addendum entered by Aida Lopez 06/13/18 13:06: nothing new per morning meeting vs ok, FS 152, last BM 06/12 per shift report MD and Nursing have last day of Cefazolin IV antibiotics to 06/20/18. Addendum entered by Rancho Tucker III 06/11/18 11:48: MD and Nursing have last day of Cefazolin IV antibiotics to 06/20/18. VS-OK BP-143/83 No Labs Addendum entered by Rancho Tucker III 06/10/18 13:04: swingbed for IV antibiotics through 06/21/18 VS-OK BP-170/76 No Labs FSBS-200 BM yesterday No Changes Addendum entered by Lindsay Aguayo 06/07/18 09:59: swingbed for IV antibiotics through 06/21/18 bp-145/69 other VS okay, no labs 1 time dose of lorazepam given yesterday prior to midline change Addendum entered by Rancho Tucker III 06/06/18 11:58: swingbed for IV antibiotics through 06/21/18 VS-OK No Labs Wgt- 84 kg No changes Addendum entered by Lindsay Aguayo 06/03/18 14:02: swingbed for IV cefazolin through 06/21/18 BP-153/78 other VS okay, no labs nothing new per morning report no med changes Addendum entered by Lindsay Aguayo 06/02/18 16:37: swingbed for IV cefazolin through 06/21/18 BP-145/80 other VS okay no labs nothing new per morning report no med changes Addendum entered by Aida Lopez 06/01/18 13:54: Continues Swing bed for IV ABX (Cefazolin), thru 06/21 nothing new per morning meeting Addendum entered by Rancho Tucker III 05/30/18 16:12: swingbed for IV antibiotics through 06/21/18. VS-OK SCr-1.47 Lytes,H&H,Plts,WBC-OK Wgt-84.4 kg No changes Addendum entered by Rancho Tucker III 05/28/18 16:33: Continues Swing bed for IV ABX (Cefazolin), thru 06/21 VS-OK No Labs Wgt-84.5 kg NO CHANGES Addendum entered by Lindsay Aguayo 05/26/18 11:51: swingbed for IV antibiotics through 06/21/18 pt wants heparin to be be discontinued per morning report; was discontinued today VS okay no labs Addendum entered by Rancho Tucker III 05/22/18 12:49: Hand wound has healed, IV Vancomycin dc'd. Cefazolin continues. VS-OK No Labs No other changes. MD to write new progress note tomorrow. Addendum entered by Ginny Cruz 05/21/18 17:20: Vanco was dc'd, resume Amlodipine, BP 100/65 this afternoon Cefazolin continues Addendum entered by Lindsay Aguayo 05/20/18 10:20: swingbed for IV antibiotics through 06/21/18 BP-152/84 other VS okay, FSBG 134 cefazolin continues, vanco to be discontinued today per MD (has not been discontinued yet) amlodipine still on hold... was held on inpt account due to hypotension but BPs have improves/been higher. I sent MD a page to see if this still needed to be held or not. Original Note: Admission Pharmacy Clinical Review BELOW IS THE PHARMACY CLINICAL INTERVENTION FOR ACUTE STAY: RASHEED VALADEZ Male : 1945 Emr# [id number] 05/03/18 14:12 - Pharmacy Review by Aida Lopez [facility] Num: [id number] : 1945 Patient Age: 73 Addendum entered by Ginny Cruz 05/15/18 13:56: Pharmacy Note Subjective Per PT note, patient c/o hand pain Objective Vanco trough 22.8 SCr up 1.85, WBC 11.22, BG 183, Afebrile, CRP down 3.68 Assessment Vanco dose interval changed to 1gram IV q16h Cefazolin 2gram IV continues Plan Discussion of swingbed soon, not done at the time of this note, possible Psych consult Will remain here for remainder of 6 weeks Anbx from start (05/10/18 to 06/21/18) Once looking improved, will discontinue Vanco and finish with Cefazolin since cultures are MSSA Addendum entered by Rancho Tucker III 05/14/18 16:39: Pharmacy Note Subjective MD discussed options of removing AICD vs 6 weeks of IV ABX therapy. Hand has improved. Objective BP-154/68 SCr-1.65 Wgt-88.2 kg Last BM 05/12 Assessment Vancomycin tomorrow at 1300 Plan Patient may go to swing depending on what is decided. Addendum entered by Rancho Tucker III 05/13/18 09:13: Pharmacy Note Subjective After negative CASSI, MD to consult with [facility]-id to discuss length of IV ABX therapy. Vancomycin used to treat hand wound together with Cefazolin Objective BP-147/76 SCr-1.45 Wgt-88.1 kg BM yesterday Assessment Vancomycin trough today @1300 Plan to see paient today regarding hand. Patient may go to swing Bed Addendum entered by Lindsay Aguayo 05/12/18 17:39: Pharmacy Note Subjective CASSI ordered for today- negative per progress note Objective BP-162/82 other VS okay SCr-1.49(up slightly) BG-161 Assessment lantus dose increased from 5 to 10 units QHS cefazolin and vanco continues (day 3 since 1st negative BC)- MD to discuss with ID about duration of abx tx Plan vanco trough ordered for tomorrow @1300, adjust dose as necessary Addendum entered by Rancho Tucker III 05/09/18 16:36: Pharmacy Note Subjective Current is incorrect, watch for new weight. Patient has appliances in heart, (may need CASSI) considering 6 weeks of ABX IV. Cefazolin, watch for new Blood cultures Objective VS-OK K+3.2 Mag-2.2 SCr-1.48 H&H-9.9/28.7 Plts-120 WBC-5.33 Assessment Lasix drip continues. Plan Watch weight and I&Os Addendum entered by Rancho Tucker III 05/08/18 15:43: Pharmacy Note Subjective MSSA Bacteremia: Cefazolin 2gm IV q8hrs started, Vanco dc'd. Lasix drip continues: Volume overload . I&o (-4L today) Objective VS-OK Afebrile, SCr-1.41 Lytes-OK H&H,Plts,WBC-OK Wgt-98.2 KG Assessment Spironolactone, Lisinopril..on hold Plan Watch I&Os & Weight Addendum entered by Ginny Cruz 05/07/18 14:47: Pharmacy Note Subjective c/o IV site hurting, signs of Sepsis yesterday Objective Afebrile now, Tmax 39.1 yesterday, BP 125/56 Micro blood: S.Aureus Mag 1.6 (replaced IV plus oral), SCr up 1.76, WBC 8.0, Plt 108 H/H 11.0/32 (?dilutional) Assessment Stool heme positive I/O +7L yesterday, weight up 7.4kg Dopamine infusion off @ 6am Norvasc on hold, Lisinopril dc'd IVF's decreased, watch BP Ertapenam dc'd Plan ?mention of needing central line See if S.Aureus is MSSA or MRSA, continues on Vanco-trough due 05/09 (not ordered) Original Note: Admission Pharmacy Clinical Review acute renal insuffiency Code Status DNR/DNI Current Weight 91.2 kg Renally Cleared and Narrow Therapeutic Index Meds crcl ~25ml/min QTc Value / Action Taken 539 BP Control, Fever 118/66 afebrile Electrolytes reviewed ok DVT Prophylaxis heparin subq Opiate Usage / Scheduled Bowel Regimen Ordered prn/prn Plt/SCr for Heparin / Enoxaparin 179/2.37 INR for Warfarin 1.2 H/H stable, WBC/Bands 13.0/37.9 wbc 7.15 Antibiotic appropriateness na Cultures and Sensitivities na Surgical ABX d/c within 24 hr na DM control / Insulin Dosing fs 78, insulin aspart and detemir Heart Failure (Check EF%) (LAURA's, B-Block, Diuretics) many cardiac meds on hold due to hypotension IV to PO Switch Home Meds Reviewed Home Meds Not Ordered lisinopril 20 mg PO DAILY 90 Days #90 tab-cap 08/16/17 sitagliptin [Januvia] 50 mg PO DAILY 90 Days #90 tab-cap 08/16/17 furosemide [Lasix] 20 mg PO DAILY PRN 30 Days #30 tab-cap 08/30/17 triamcinolone acetonide 1 melinda TOPICAL TID 90 Days #1 tube 09/13/17 fluticasone propionate [Flonase Allergy Relief] 2 spry NS DAILY #1 amlodipine 10 mg PO DAILY #90 tab-cap 10/07/17 [Rx Confirmed 05/02/18] fenofibrate 150 mg capsule 150 mg PO DAILY 11/21/17 melatonin 3 mg tablet 9 mg PO HS tab 01/20/18 [History Confirmed 05/02/18] colchicine 0.6 mg tablet 0.6 mg PO BID PRN #30 tab 01/24/18 metformin 500 mg tablet 1,000 mg PO BID #360 tab-cap 01/24/18 potassium chloride ER 10 mEq tablet,extended release 10 meq PO DAILY spironolactone 25 mg tablet 25 mg PO DAILY 90 Days #90 tab-cap 01/24/18 atenolol 100 mg tablet 100 mg PO DAILY #180 tab-cap 03/21/18 pregabalin 200 mg capsule 400 mg PO BID #360 cap 03/21/18 carvedilol 12.5 mg tablet 12.5 mg PO QDAY tab 04/01/18 Comments Initialized on 05/03/18 14:12 - END OF NOTE
[2018-05-17] MEDS: Fluticasone NASAL SPRAY 16 GM BTL NS (08:48)
[2018-05-17] MEDS: Senna TAB 1 TAB PO ×2 (08:49→19:51)
[2018-05-17] MEDS: Heparin 5,000 UNITS/ML VIAL 5000 UNITS SC ×3 (08:49→23:29)
[2018-05-17] MEDS: Magnesium Oxide 400 MG TAB PO ×2 (08:49→19:51)
[2018-05-17] MEDS: Aspirin E.C. 81 MG TABEC PO (08:49)
[2018-05-17] MEDS: Furosemide 40 MG TAB PO (08:49)
[2018-05-17] MEDS: CARVEDILOL 12.5 MG TAB PO ×2 (08:49→19:51)
[2018-05-17] MEDS: Atorvastatin 20 MG TAB 60 MG PO (08:49)
[2018-05-17] MEDS: Docusate Sodium 100 MG CAP PO ×3 (08:49→19:51)
[2018-05-17] MEDS: Fenofibrate, Micronized 145 MG TAB PO (08:49)
[2018-05-17] MEDS: Insulin Aspart 300 UNITS/3 ML PEN SC ×3 (08:50→16:53)
--- NOTE | 2018-05-17 11:47 | CM.SBPSYCH ---
- If Service Date Differs Date of service: 05/17/18 Time of Service: 11:47 SB Psychosocial/Act.Assessment - Hospital Admission Admission Date: 05/02/18 Admission From:: Home Diagnosis:: Acute Renal insufficiency - Swing Bed Admission Swing Bed Admit Date:: 05/16/18 Swing Bed Level of Care: Level 1/SNF - Social Supports PREVIOUS FUNCTIONAL STATUS/SOCIAL/FAMILY SUPPORTS:: Independent at baseline. Lives alone at his apartment in [place]. He was receiving support from his BEVERLY Blount and her family, however this support is no longer available to him. He has family that reside in [place] and are supportive, however are not local. 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 - [employer]: No [employer] Spouse: No - Benefits Financial: [employer] ([employer]) - Advance Directives for Healthcare Advance Directives for Healthcare: Advance Directives Advance Directive Agent: Paula Issa - Interests TV/Movies:: enjoys watching TV Reading:: enjoys reading - Present Functional Status Physical Abilities:: Ambulates without assistive device on Med/Surg unit Cognitive:: A&O Communication:: Effective Sensory Systems: Intact Behavior:: Pleasant - Medical History PAST MEDICAL HISTORY/PAST SURGICAL HISTORY:: Chronic kidney disease, Insulin-dependent diabetes mellitus, CHF, Severe LVH, Aortic stenosis, H/O ARDS, Pulmonary hypertension, Hypertension, Dyslipidemia/Hypertriglyceridemia, Chronic pain, Obesity, Sciatica, COPD, Nonobstructing CAD, ANNABELLE on CPAP, H/O delirium, Peripheral neuropathy, (R) foot surgery, (L) heart catheterization General Health:: Fair Past Psychiatric Treatment:: N/A - Admission Data Reason for Swing Bed Admission:: 6 weeks IV antibiotics Discharge Plan:: CM to assist with facilitating assisted living placement. Kam feels as though he can no longer manage at home due to the stairs Assessment: Kam is a pleasant 73 y/o male admitted to [facility] for IV antibiotics for a duration of 6 weeks. Kam would like to return to the community once antibiotics are completed, and would like assistance with alternate housing options. Hand Button Splitter: Nanda Pierce Date Assessment was completed:: 05/17/18
--- NOTE | 2018-05-17 11:57 | CMSA_ITS ---
- If Service Date Differs Date of service: 05/17/18 Time of Service: 11:47 SB Psychosocial/Act.Assessment - Hospital Admission Admission Date: 05/02/18 Admission From:: Home Diagnosis:: Acute Renal insufficiency - Swing Bed Admission Swing Bed Admit Date:: 05/16/18 Swing Bed Level of Care: Level 1/SNF - Social Supports PREVIOUS FUNCTIONAL STATUS/SOCIAL/FAMILY SUPPORTS:: Independent at baseline. Lives alone at his apartment in [place]. He was receiving support from his BEVERLY Blount and her family, however this support is no longer available to him. He has family that reside in [place] and are supportive, however are not local. 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 ([facility]) - Advance Directives for Healthcare Advance Directives for Healthcare: Advance Directives Advance Directive Agent: Paula Issa - Interests TV/Movies:: enjoys watching TV Reading:: enjoys reading - Present Functional Status Physical Abilities:: Ambulates without assistive device on Med/Surg unit Cognitive:: A&O Communication:: Effective Sensory Systems: Intact Behavior:: Pleasant - Medical History PAST MEDICAL HISTORY/PAST SURGICAL HISTORY:: Chronic kidney disease, Insulin-dependent diabetes mellitus, CHF, Severe LVH, Aortic stenosis, H/O ARDS, Pulmonary hypertension, Hypertension, Dyslipidemia/Hypertriglyceridemia, Chronic pain, Obesity, Sciatica, COPD, Nonobstructing CAD, ANNABELLE on CPAP, H/O delirium, Peripheral neuropathy, (R) foot surgery, (L) heart catheterization General Health:: Fair Past Psychiatric Treatment:: N/A - Admission Data Reason for Swing Bed Admission:: 6 weeks IV antibiotics Discharge Plan:: CM to assist with facilitating assisted living placement. Kam feels as though he can no longer manage at home due to the stairs Assessment: Kam is a pleasant 73 y/o male admitted to [facility] for IV antibiotics for a duration of 6 weeks. Kam would like to return to the community once antibiotics are completed, and would like assistance with alternate housing options. Sandwich Maker: Nanda Pierce Date Assessment was completed:: 05/17/18
--- NOTE | 2018-05-17 11:57 | CM.SWINGPC ---
- If Service Date Differs Date of service: 05/17/18 Time of Service: 11:57 Swingbed Plan of Care Plan of care: SWING BED PROGRAM ACTIVITIES/DISCHARGE PLAN OF CARE ACTIVITIES PLAN Date: 05/17/18 Identified Need: Individual activities Intervention/Plan: TV provided in room Music Therapy offered Reiki offered Pet Therapy offered Activity cart offered and available Reading materials available Initials MM DISCHARGE PLAN Date: 05/17/18 Identified Need: 1.DME 2.Home Health 3. New housing. Intervention/Plan: 1. If needed to be arranged through DME of choice. 2. If needed referral to be provided to [facility] for home health services. 3. CM to facilitate discussion around housing options, and assist with application process for assisted living. Initials LOBO
[2018-05-17] MEDS: Pantoprazole 40 MG VIAL IVP (16:50)
[2018-05-17 17:04] VITALS: BP 123/60; PULSE 65; RESP 17; TEMP 36.4; O2SAT 98
[2018-05-17] MEDS: Fluticasone-Umeclidin-Vilanter [Trelegy Ellipta] IH (17:05)
[2018-05-17] MEDS: Mirtazapine 15 MG TAB PO (19:51)
[2018-05-17] MEDS: Milk of Magnesia 30 ML CUP PO (19:52)
[2018-05-17] MEDS: oxyCODONE 10 MG TAB PO (21:02)
[2018-05-18 00:26] VITALS: BP 112/69; PULSE 76; RESP 16; TEMP 36.7; O2SAT 96
[2018-05-18] MEDS: ceFAZolin 2,000 MG in Normal Saline 100 ML 200 MG IVPB ×3 (05:52→22:23)
[2018-05-18 07:35] VITALS: BP 163/71; PULSE 72; RESP 20; TEMP 37; O2SAT 96
[2018-05-18] MEDS: Fluticasone-Umeclidin-Vilanter [Trelegy Ellipta] IH (07:54)
[2018-05-18] MEDS: CARVEDILOL 12.5 MG TAB PO ×2 (08:30→20:05)
[2018-05-18] MEDS: Furosemide 40 MG TAB PO (08:30)
[2018-05-18] MEDS: Senna TAB 1 TAB PO ×2 (08:30→20:06)
[2018-05-18] MEDS: Acetaminophen 325 MG TAB PO ×2 (08:30→20:05)
[2018-05-18] MEDS: Atorvastatin 20 MG TAB 60 MG PO (08:30)
[2018-05-18] MEDS: Fenofibrate, Micronized 145 MG TAB PO (08:30)
[2018-05-18] MEDS: Magnesium Oxide 400 MG TAB PO ×2 (08:30→20:05)
[2018-05-18] MEDS: Heparin 5,000 UNITS/ML VIAL 5000 UNITS SC ×2 (08:31→15:47)
[2018-05-18] MEDS: Aspirin E.C. 81 MG TABEC PO (08:31)
[2018-05-18] MEDS: Fluticasone NASAL SPRAY 16 GM BTL NS (08:31)
[2018-05-18] MEDS: Insulin Aspart 300 UNITS/3 ML PEN SC ×2 (08:31→17:12)
[2018-05-18] MEDS: Docusate Sodium 100 MG CAP PO ×3 (08:31→20:06)
[2018-05-18 09:31] LABS: Vancomycin, Trough 17.3 ug/mL (10.0-20.0)
[2018-05-18] MEDS: Normal Saline Flush 10 ML SYR IVP ×4 (11:47→22:23)
[2018-05-18] MEDS: Pantoprazole 40 MG VIAL IVP (15:47)
[2018-05-18 16:16] VITALS: BP 136/70; PULSE 85; RESP 18; TEMP 36.2; O2SAT 96
[2018-05-18] MEDS: Mirtazapine 15 MG TAB PO (20:05)
[2018-05-18] MEDS: oxyCODONE 10 MG TAB PO (20:06)
[2018-05-18 23:39] VITALS: BP 122/70; PULSE 79; RESP 18; TEMP 36.9; O2SAT 95
[2018-05-19] MEDS: Heparin 5,000 UNITS/ML VIAL 5000 UNITS SC ×3 (01:00→17:07)
[2018-05-19] MEDS: Normal Saline Flush 10 ML SYR IVP ×2 (02:56→21:58)
[2018-05-19] MEDS: Normal Saline 500 ML 30 ML IV (02:56)
[2018-05-19 03:49] VITALS: BP 120/74; PULSE 82; RESP 16; TEMP 36.1; O2SAT 96
[2018-05-19] MEDS: ceFAZolin 2,000 MG in Normal Saline 100 ML 200 MG IVPB (05:09)
[2018-05-19 07:46] LABS: HCT 36.6 % (40.0-50.0); Mean Corp. HGB Concentration 32.8 g/dL (32.0-36.0); Mean Corpuscular Hemoglobin 29.4 pg (27.0-33.0); Mean Corpuscular Volume 89.7 fL (80-95); Mean Platelet Volume 9.2 fL (8.0-11.0); Platelet Count 404 x1000/uL (130-400); RBC 4.08 m/cumm (4.50-6.00); RBC Distribution Width 16.2 % (11.8-14.1); White Blood Cell Count 8.42 k/cumm (4.4-10.8)
[2018-05-19 07:58] VITALS: BP 168/90; PULSE 71; RESP 18; TEMP 36.8; O2SAT 97
[2018-05-19] MEDS: Fluticasone-Umeclidin-Vilanter [Trelegy Ellipta] IH (08:01)
[2018-05-19] MEDS: Fluticasone NASAL SPRAY 16 GM BTL NS (08:51)
[2018-05-19] MEDS: Insulin Aspart 300 UNITS/3 ML PEN SC ×3 (08:52→17:08)
[2018-05-19] MEDS: Furosemide 40 MG TAB PO (08:53)
[2018-05-19] MEDS: Fenofibrate, Micronized 145 MG TAB PO (08:53)
[2018-05-19] MEDS: Magnesium Oxide 400 MG TAB PO ×2 (08:53→19:51)
[2018-05-19] MEDS: CARVEDILOL 12.5 MG TAB PO ×2 (08:53→19:51)
[2018-05-19] MEDS: Atorvastatin 20 MG TAB 60 MG PO (08:53)
[2018-05-19] MEDS: Aspirin E.C. 81 MG TABEC PO (08:53)
[2018-05-19] MEDS: Senna TAB 1 TAB PO ×2 (08:53→19:51)
[2018-05-19] MEDS: Docusate Sodium 100 MG CAP PO ×3 (08:54→19:51)
--- NOTE | 2018-05-19 11:37 | OT.INIE ---
Occupational Therapy Notes Inpatient SWING Occupational Therapy Evaluation Date: 05/19/18 Referring Doctor:Lazara Soto MD OT Orders: Eval and Treat Precautions: Standard. PATIENT PROFILE/ADMITTING DIAGNOSIS: Pt is a 73 year old male who was admitted through the ER on 05/02/18 for chest pain and RLL pneumonia. He was admitted through [facility] rehabilitation status on 05/18/18. Past Medical History: STEMI (ST elevation myocardial infarction) (Chronic) Sleep apnea (Chronic 12/28/15) Sciatica of left side (Chronic 03/26/16) Primary osteoarthritis involving multiple joints (Chronic 01/04/16) Pain in lower limb (Chronic 02/18/89) Nonallergic rhinitis (Resolved 01/28/15) Leg pain, left (Chronic 01/17/16) Left lumbar radiculopathy (Chronic 10/26/16) Hypertriglyceridemia (Chronic 12/31/14) Dyspnea on exertion (Chronic 09/20/15) Distal paresthesia (Chronic 02/16/14) DM w/o complication type II, uncontrolled (Chronic 11/12/13) DM neuro manif type II (Chronic) Chronic pain disorder (Chronic 10/26/16) Chronic obstructive pulmonary disease (Chronic 01/21/17) Adjustment disorder, unspecified (Resolved 09/03/16) Acute gastroenteritis (Resolved) Aortic stenosis (Resolved) Discharge planning issues (Resolved) Lumbar back pain with radiculopathy affecting left lower extremity (Chronic) Neuropathy, lateral femoral cutaneous nerve (Chronic) Influenza with respiratory manifestations (Resolved 04/16/14) Diabetes mellitus, type II (Chronic) Hypertension (Chronic) Hyperlipidemia (Chronic) Obesity (Chronic) Peripheral neuropathy (Chronic) Weakness (Chronic 04/16/14) s/p respiratory failure (Chronic 04/16/14) s/p mechanical ventilation (Chronic 04/16/14) Encounter for physical therapy (Chronic 04/16/14) H/O surgical procedure (Chronic) Biopsy Skin of left synagogue (12/10/14) Central line for TPN (03/31/14) Social History/Home Situation: Pt lives in [place] in a handicap apartment. Prior to admission he was completely (I) in all ADLs/IADLs. 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 He reports that he has RCT 2x/month for any longer trips that he needs to make. He has a home in [place] but he is unable to visit due to this. Pt states that he is under the [facility] rehab status his ex girlfriend has his car which he states he would like back so he can leave the hospital at times. Equipment owned/DME: Pt lives in a handicap apartment with all DME needed. SUBJECTIVE: Pt was sitting in chair when OT arrived. He states that he is on [facility] rehab status and is going to stay in the hospital till June for scheduled medication. OBJECTIVE: General Observation: Pleasant and answers questions appropriately Mental Status: A&Ox3 ROM: RUE AROM shoulder WFL, elbow WNL, hand and wrist WNL L UE AROM shoulder WFL, elbow WNL, hand and wrist WNL STRENGTH: RUE Shoulder flexion 4/5, bicep 4/5, tricep 4/5, marketing manager is symmetrical LUE Shoulder flexion 4/5, bicep 3+/5, tricep 3+/5, marketing manager is symmetrical FUNCTIONAL MOBILITY/ADLS: Sit to stand (I) Stand to sit (I) Bed to sink (I) Sink to bed (I) Supine to sit (I) Sit to Supine (I) In acute rehab status pt was able to perform all ADLs/IADLs (I) in hospital setting. Pt does not feel that this has changed and states that he is (I) he needs help with his back which OT provided pt long handled sponge which he reports that he will use tomorrow. TOILETING: Device: toilet Assist: (I) BALANCE: Static sitting Normal Dynamic Sitting Normal Static Standing Normal Dynamic Standing Normal SPECIAL TESTS: Daily Activity Limitations Standardized Measure [facility] AM -PAC ?6 clicks? Daily Activity Inpatient Short Form: Raw score: 23 Standardized score: 51.12 CMS score: 15.86% INFORMED CONSENT/EDUCATION: Pt instructed in purpose of OT Consult and plan of care. ASSESSMENT: Patient is a 73-year-old male referred to occupational therapy services with diagnosis of chest pain and RLL pneumonia. Pt has been seen for a total of 4 skilled OT sessions and was transferred to [facility] rehab status on 05/18/18. He is demonstrating increased (I) in ADL/IADL and leisure activities. He functionally has met all OT goals established for him. He demonstrates his ADLs with increased safety and body sander awareness. OT recommends that pt would benefit from home health services when medically cleared per MD. OT will formally discharge pt from skilled OT services at this time. Patient is assessed as a Low 13122 complexity based on the following: History: See Above Examination: See Above Presentation: Evolving Decision Making: AMPAC score 23, CMS score 15.86% GOALS- N/A PLAN OF CARE/TREATMENT PLAN: OT consult only. Discharge from skilled OT services. DISCHARGE RECOMMENDATIONS Home with home health services for increased strengthening to increase (I) in functional activities when medically cleared per MD. TREATMENT TIME/MINUTES/CODES 53615, 15minutes (10:25) Lois Hua OTR/[facility]
--- NOTE | 2018-05-19 11:41 | OTIE_ITS ---
Occupational Therapy Notes Inpatient SWING Occupational Therapy Evaluation Date: 05/19/18 Referring Doctor:Lazara Soto MD OT Orders: Eval and Treat Precautions: Standard. PATIENT PROFILE/ADMITTING DIAGNOSIS: Pt is a 73 year old male who was admitted through the ER on 05/02/18 for chest pain and RLL pneumonia. He was admitted through [facility] rehabilitation status on 05/18/18. Past Medical History: STEMI (ST elevation myocardial infarction) (Chronic) Sleep apnea (Chronic 12/28/15) Sciatica of left side (Chronic 03/26/16) Primary osteoarthritis involving multiple joints (Chronic 01/04/16) Pain in lower limb (Chronic 02/18/89) Nonallergic rhinitis (Resolved 01/28/15) Leg pain, left (Chronic 01/17/16) Left lumbar radiculopathy (Chronic 10/26/16) Hypertriglyceridemia (Chronic 12/31/14) Dyspnea on exertion (Chronic 09/20/15) Distal paresthesia (Chronic 02/16/14) DM w/o complication type II, uncontrolled (Chronic 11/12/13) DM neuro manif type II (Chronic) Chronic pain disorder (Chronic 10/26/16) Chronic obstructive pulmonary disease (Chronic 01/21/17) Adjustment disorder, unspecified (Resolved 09/03/16) Acute gastroenteritis (Resolved) Aortic stenosis (Resolved) Discharge planning issues (Resolved) Lumbar back pain with radiculopathy affecting left lower extremity (Chronic) Neuropathy, lateral femoral cutaneous nerve (Chronic) Influenza with respiratory manifestations (Resolved 04/16/14) Diabetes mellitus, type II (Chronic) Hypertension (Chronic) Hyperlipidemia (Chronic) Obesity (Chronic) Peripheral neuropathy (Chronic) Weakness (Chronic 04/16/14) s/p respiratory failure (Chronic 04/16/14) s/p mechanical ventilation (Chronic 04/16/14) Encounter for physical therapy (Chronic 04/16/14) H/O surgical procedure (Chronic) Biopsy Skin of left yazidi (12/10/14) Central line for TPN (03/31/14) Social History/Home Situation: Pt lives in [place] in a handicap apartment. Prior to admission he was completely (I) in all ADLs/IADLs. 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 He reports that he has RCT 2x/month for any longer trips that he needs to make. He has a home in [place] but he is unable to visit due to this. Pt states that he is under the [facility] rehab status his ex girlfriend has his car which he states he would like back so he can leave the hospital at times. Equipment owned/DME: Pt lives in a handicap apartment with all DME needed. SUBJECTIVE: Pt was sitting in chair when OT arrived. He states that he is on [facility] rehab status and is going to stay in the hospital till June for scheduled medication. OBJECTIVE: General Observation: Pleasant and answers questions appropriately Mental Status: A&Ox3 ROM: RUE AROM shoulder WFL, elbow WNL, hand and wrist WNL L UE AROM shoulder WFL, elbow WNL, hand and wrist WNL STRENGTH: RUE Shoulder flexion 4/5, bicep 4/5, tricep 4/5, front man is symmetrical LUE Shoulder flexion 4/5, bicep 3+/5, tricep 3+/5, front man is symmetrical FUNCTIONAL MOBILITY/ADLS: Sit to stand (I) Stand to sit (I) Bed to sink (I) Sink to bed (I) Supine to sit (I) Sit to Supine (I) In acute rehab status pt was able to perform all ADLs/IADLs (I) in hospital setting. Pt does not feel that this has changed and states that he is (I) he needs help with his back which OT provided pt long handled sponge which he reports that he will use tomorrow. TOILETING: Device: toilet Assist: (I) BALANCE: Static sitting Normal Dynamic Sitting Normal Static Standing Normal Dynamic Standing Normal SPECIAL TESTS: Daily Activity Limitations Standardized Measure [facility] AM -PAC ?6 clicks? Daily Activity Inpatient Short Form: Raw score: 23 Standardized score: 51.12 CMS score: 15.86% INFORMED CONSENT/EDUCATION: Pt instructed in purpose of OT Consult and plan of care. ASSESSMENT: Patient is a 73-year-old male referred to occupational therapy services with diagnosis of chest pain and RLL pneumonia. Pt has been seen for a total of 4 skilled OT sessions and was transferred to [facility] rehab status on 05/18/18. He is demonstrating increased (I) in ADL/IADL and leisure activities. He functionally has met all OT goals established for him. He demonstrates his ADLs with increased safety and painter and body work awareness. OT recommends that pt would benefit from home health services when medically cleared per MD. OT will formally discharge pt from skilled OT services at this time. Patient is assessed as a Low 45627 complexity based on the following: History: See Above Examination: See Above Presentation: Evolving Decision Making: AMPAC score 23, CMS score 15.86% GOALS- N/A PLAN OF CARE/TREATMENT PLAN: OT consult only. Discharge from skilled OT services. DISCHARGE RECOMMENDATIONS Home with home health services for increased strengthening to increase (I) in functional activities when medically cleared per MD. TREATMENT TIME/MINUTES/CODES 23011, 15minutes (10:25) Lois Hua OTR/[facility]
--- NOTE | 2018-05-19 12:58 | PT.INIE ---
Date of service: 05/19/18 Time of Service: 13:02 PT Notes Inpatient Physical Therapy Evaluation Date: 05/19/2018 Referring Doctor: Lazara Soto MD PT Orders: PT CONSULT: Eval and treat Precautions: Fall. Standard. Patient Profile/Admitting Diagnosis: Patient admitted 05/02/18 due to MSSA bacteremia and right hand cellulitis. He transitioned from MedSurg to Swing Bed status on 05/16/2018 for a 6 week course of antibiotics. Referral was received on 05/16/2018 for progression of strength, balance, and activity tolerance under swing bed status. PMHX: DONTAE, HTN, CAD with h/o STEMI 12/2017 and s/p AICD placement; CHF; DM; COPD Social History/Home Situation: Patient lives independently in an apartment in [place]. He has a significant other who is supportive. He is normally independent, and gets around without an assistive device. He admits to balance issues, and had been attending outpatient PT as recently as February 2018 to address this. Equipment Owned/DME: Has FWW but does not use. Subjective: Kam continues to complain about his right hand still being sore. He states that he hopes to continue with skilled PT services to continue to strengthen his body. He is agreeable to a balance progression program while he is here under swing bed status. He states that he has works on stairs in the inpatient therapy gym gym but would like to hold off on doing the stairs at the hospital for now. I want to be able to bend over and take care of my dog eventually. Patient states that the dog is closer to 20 pounds and is now 17 years old. Objective: General Observation: Patient is seen today on his recliner. No attachments seen. Mild swellig, but no erythema, noted on the dorsum of the right wrist. Mental Status: A&Ox3. Pain: Patient continues to report mild pain on the right right wrist area. He also states that there are positions and activities that continue to trigger the pain on the left gluteal area down to the left posterior thigh to a point where he could not move. He states however that that has not recently happened. ROM: Right Upper Extremity: Functional opening and closing of hand seen. Shoulder, elbow, and wrist joints WFL. Left Upper Extremity: Grossly WFL Right Lower Extremity: Grossly WFL Left Lower Extremity: Grossly WFL Strength: Right Upper Extremity: Shoulder flexion 3-/5. Biceps 4-/5.. Wave Guide Assembler is weak functional. Left Upper Extremity: Shoulder flexion 3-/5. Biceps 4-/5. Right Lower Extremity: Hip flexion 5/5. Quads 5/5. HS 4/5. Ankle DF 4+/5. Left Lower Extremity: Hip flexion 4+/5, with reports of lateral hip pain. Quads 5/5. HS 4/5. Ankle DF 4+/5. Bed Mobility/Transfers: supine->sit: independent sit->supine: independent sit->stand: Independent stand->sit: Independent Gait: Patient was discontinued on 05/16/2018 with ability to complete up to 500 feet of level surface ambulation in [facility] unit without an assistive device only requiring supervision from PT/MEN'S CUSTOM HAIR PIECE CONSULTANT. He does reports that fatigue can trigger discomfort on the left gluteal area and posterior thigh. Balance: Static Sitting: Normal Dynamic Sitting: Normal Static Standing: Good Dynamic Standing: Good Special Tests: Tinetti/AIDA score of 28/28 signifying low fall risk. 30-second chair rise score of 9 but patient complained of left thigh throbbing after activity. Four stage balance test: Patient was able to assume sections 1 and 2 for 10 seconds with bilateral arms and mid guard for position ; he was however unable to assume the tandem and the one-legged stance. Mobility Limitations Standardized Measure [facility] AM-PAC 6 clicks Basic Mobility Inpatient Short Form: Raw Score: 23 CMS Score: 11.20% deficit Informed Consent/Education: Patient instructed in purpose of PT consult and plan of care. Patient is agreeable to new PT POC: Functional maintenance program to consist of level surface ambulation, recumbent bike for BUE and LE strengthening and increase in activity tolerance, balance progression, and manual therapy. Assessment: Patient is a 73 year old male referred to physical therapy services with the diagnosis of MSSA bacteremia and cellulitis of the right hand. He has thus far demonstrated improvement in mobility levels as demonstrated above under bed mobility/transfer levels. He continues to require skilled PT intervention to maximize safety and mobility with plan to discharge to an assisted living facility at the conclusion of antibiotic treatment. He currently demonstrates the following impairment level findings: 1. Limited 4 stage balance test score: Inability to assume tandem stands in one-legged stance 2. Limited ability to bend down and carry 20 pound dog 3. Shortness of breath and fatigue with negotiation of a flight of stairs 4. Persistent pain on left gluteal area and posterior thigh Impairments are contributing to the following functional limitations: 1. Unable to safely ambulate community distances 2. Unable to safely ambulate household distances independently 3. Unable to manage a flight of stairs independently without fatigue and shortness of breath 4. Fall risk Patient is assessed as Low 41818 complexity based on the following: History: 73 year old male with complicated medical history admitted for medical management of right hand cellulitis and MSSA bacteremia Examination: Underlying impairments functional limitations as noted above resulting AMPAC score of 23 and an equivalent CMS score of 11.20% deficit Presentation: Evolving Decision Making: Low complexity Goals: Goals X1 week 1. Patient will independently negotiate a flight of stairs without an assistive device with no report of increased pain on gluteal area/posterior thigh or dyspnea 2. Patient will be able to assume tandem stance on both legs and one leg at stance for 10 seconds each in order to reduce fall risk 3. Patient will demonstrate gait speed of at least 1.5 m/s in order to facilitate return to community ambulation 4. Patient will demonstrate 100% mastery of room exercises as part of his functional maintenance program 5. Patient will perform 30-second chair rice score of 15 without complaints of pain on gluteal area/posterior thigh nor dyspnea Plan of Care/Treatment: Patient converts to swing bed status as of with plan to continue skilled PT services OD twice a week for 2 weeks for strength, balance, and ambulation progression. Plan of care has been reviewed with the MEN'S CUSTOM HAIR PIECE CONSULTANT providing the service under Physical Therapy direction. Initiate Physical Therapy intervention for strengthening, transfers, gait, stairs, balance training, manual therapy, and room exercises. DISCHARGE RECOMMENDATIONS: Patient may benefit from continued home health services at level 3 facility upon discharge from this hospital in order to facilitate a smooth transition, evaluate home/DAINA safety, and establish/implement/continue a functional maintenance program to maintain and achieve gains in therapy. TREATMENT CODE/TIME: [id number] 36 minutes beginning at 13:13 PM. Thank you for this referral. Bridget Cochran, PT, DPT, CLT [facility] Precautions: [] Patient Profile/Admitting Diagnosis: [] PMHX: [] Social History/Home Situation: [] Current Functional Limitations: [] Equipment Owned/DME: [] Subjective: [] Objective: [] General Observation: [] Mental Status: [] Pain: [] Vital Signs: [] ROM: Right Upper Extremity: [] Left Upper Extremity: [] Right Lower Extremity: [] Left Lower Extremity: [] Strength: Right Upper Extremity: [] Left Upper Extremity: [] Right Lower Extremity: [] Left Lower Extremity: [] Sensation: [] Bed Mobility/Transfers: [] Gait: [] Balance: [] Static Sitting: [] Dynamic Sitting: [] Static Standing: [] Dynamic Standing: [] Special Tests: Mobility Limitations Standardized Measure [facility] AM-PAC 6 clicks Basic Mobility Inpatient Short Form: Raw Score: [] Standardized Score: [] CMS Score: [] CMS Modifier: [] Informed Consent/Education: Patient instructed in purpose of PT consult and plan of care. Assessment: Patient is a [] year old [] referred to physical therapy services with the diagnosis of []. Patient presents with clinical signs and symptoms consistent with [], as demonstrated by the following impairment level findings: []. Impairments are contributing to the following functional limitations: AMPAC score. Patient is assessed as a [] Low 85236 [] Moderate 74041 [] High 92798 complexity based on the following: History: [] Examination: [] Presentation: [] Decision Making: [] Goals: Goals X1 week 1. Supine-Sit [] 2. Sit-Supine [] 3. Sit-Stand [] 4. Stand-Sit [] 5. Bed-Chair [] 6. Chair-Bed [] 7. Gait [] 8. Stairs [] 9. Independent with home exercise program [] 10. Balance [] Plan of Care/Treatment Plan: 1-2x/day, 7 days/week x 1 week. Plan of care has been reviewed with the MEN'S CUSTOM HAIR PIECE CONSULTANT providing the service under Physical Therapy direction. Initiate Physical Therapy intervention for strengthening, bed mobility, transfers, gait, stairs, balance training, use of assistive device. DISCHARGE RECOMMENDATIONS: [] TREATMENT CODE/TIME: []
--- NOTE | 2018-05-19 13:07 | IN_ITS ---
Date of service: 05/19/18 Time of Service: 13:02 PT Notes Inpatient Physical Therapy Evaluation Date: 05/19/2018 Referring Doctor: Lazara Soto MD PT Orders: PT CONSULT: Eval and treat Precautions: Fall. Standard. Patient Profile/Admitting Diagnosis: Patient admitted 05/02/18 due to MSSA bacteremia and right hand cellulitis. He transitioned from MedSurg to Swing Bed status on 05/16/2018 for a 6 week course of antibiotics. Referral was received on 05/16/2018 for progression of strength, balance, and activity tolerance under swing bed status. PMHX: DONTAE, HTN, CAD with h/o STEMI 12/2017 and s/p AICD placement; CHF; DM; COPD Social History/Home Situation: Patient lives independently in an apartment in [place]. He has a significant other who is supportive. He is normally independent, and gets around without an assistive device. He admits to balance issues, and had been attending outpatient PT as recently as February 2018 to address this. Equipment Owned/DME: Has FWW but does not use. Subjective: Kam continues to complain about his right hand still being sore. He states that he hopes to continue with skilled PT services to continue to strengthen his body. He is agreeable to a balance progression program while he is here under swing bed status. He states that he has works on stairs in the inpatient therapy gym gym but would like to hold off on doing the stairs at the hospital for now. I want to be able to bend over and take care of my dog eventually. Patient states that the dog is closer to 20 pounds and is now 17 years old. Objective: General Observation: Patient is seen today on his recliner. No attachments seen. Mild swellig, but no erythema, noted on the dorsum of the right wrist. Mental Status: A&Ox3. Pain: Patient continues to report mild pain on the right right wrist area. He also states that there are positions and activities that continue to trigger the pain on the left gluteal area down to the left posterior thigh to a point where he could not move. He states however that that has not recently happened. ROM: Right Upper Extremity: Functional opening and closing of hand seen. Shoulder, elbow, and wrist joints WFL. Left Upper Extremity: Grossly WFL Right Lower Extremity: Grossly WFL Left Lower Extremity: Grossly WFL Strength: Right Upper Extremity: Shoulder flexion 3-/5. Biceps 4-/5.. 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 Left Upper Extremity: Shoulder flexion 3-/5. Biceps 4-/5. Right Lower Extremity: Hip flexion 5/5. Quads 5/5. HS 4/5. Ankle DF 4+/5. Left Lower Extremity: Hip flexion 4+/5, with reports of lateral hip pain. Quads 5/5. HS 4/5. Ankle DF 4+/5. Bed Mobility/Transfers: supine->sit: independent sit->supine: independent sit->stand: Independent stand->sit: Independent Gait: Patient was discontinued on 05/16/2018 with ability to complete up to 500 feet of level surface ambulation in [facility] unit without an assistive device only requiring supervision from PT/REFRACTIVE SURGEON. He does reports that fatigue can trigger discomfort on the left gluteal area and posterior thigh. Balance: Static Sitting: Normal Dynamic Sitting: Normal Static Standing: Good Dynamic Standing: Good Special Tests: Tinetti/AIDA score of 28/28 signifying low fall risk. 30-second chair rise score of 9 but patient complained of left thigh throbbing after activity. Four stage balance test: Patient was able to assume sections 1 and 2 for 10 seconds with bilateral arms and mid guard for position ; he was however unable to assume the tandem and the one-legged stance. Mobility Limitations Standardized Measure [facility] AM-PAC 6 clicks Basic Mobility Inpatient Short Form: Raw Score: 23 CMS Score: 11.20% deficit Informed Consent/Education: Patient instructed in purpose of PT consult and plan of care. Patient is agreeable to new PT POC: Functional maintenance program to consist of level surface ambulation, recumbent bike for BUE and LE strengthening and increase in activity tolerance, balance progression, and manual therapy. Assessment: Patient is a 73 year old male referred to physical therapy services with the diagnosis of MSSA bacteremia and cellulitis of the right hand. He has thus far demonstrated improvement in mobility levels as demonstrated above under bed mobility/transfer levels. He continues to require skilled PT intervention to maximize safety and mobility with plan to discharge to an assisted living facility at the conclusion of antibiotic treatment. He currently demonstrates the following impairment level findings: 1. Limited 4 stage balance test score: Inability to assume tandem stands in one-legged stance 2. Limited ability to bend down and carry 20 pound dog 3. Shortness of breath and fatigue with negotiation of a flight of stairs 4. Persistent pain on left gluteal area and posterior thigh Impairments are contributing to the following functional limitations: 1. Unable to safely ambulate community distances 2. Unable to safely ambulate household distances independently 3. Unable to manage a flight of stairs independently without fatigue and shortness of breath 4. Fall risk Patient is assessed as Low 81925 complexity based on the following: History: 73 year old male with complicated medical history admitted for medical management of right hand cellulitis and MSSA bacteremia Examination: Underlying impairments functional limitations as noted above resulting AMPAC score of 23 and an equivalent CMS score of 11.20% deficit Presentation: Evolving Decision Making: Low complexity Goals: Goals X1 week 1. Patient will independently negotiate a flight of stairs without an assistive device with no report of increased pain on gluteal area/posterior thigh or dyspnea 2. Patient will be able to assume tandem stance on both legs and one leg at stance for 10 seconds each in order to reduce fall risk 3. Patient will demonstrate gait speed of at least 1.5 m/s in order to facilitate return to community ambulation 4. Patient will demonstrate 100% mastery of room exercises as part of his functional maintenance program 5. Patient will perform 30-second chair rice score of 15 without complaints of pain on gluteal area/posterior thigh nor dyspnea Plan of Care/Treatment: Patient converts to swing bed status as of with plan to continue skilled PT services OD twice a week for 2 weeks for strength, balance, and ambulation progression. Plan of care has been reviewed with the REFRACTIVE SURGEON providing the service under Physical Therapy direction. Initiate Physical Therapy intervention for strengthening, transfers, gait, stairs, balance training, manual therapy, and room exercises. DISCHARGE RECOMMENDATIONS: Patient may benefit from continued home health services at level 3 facility upon discharge from this hospital in order to facilitate a smooth transition, evaluate home/DAINA safety, and establish/implement/continue a functional maintenance program to maintain and achieve gains in therapy. TREATMENT CODE/TIME: 76060 36 minutes beginning at 13:13 PM. Thank you for this referral. Bridget Cocrhan, PT, DPT, CLT [facility] Precautions: [] Patient Profile/Admitting Diagnosis: [] PMHX: [] Social History/Home Situation: [] Current Functional Limitations: [] Equipment Owned/DME: [] Subjective: [] Objective: [] General Observation: [] Mental Status: [] Pain: [] Vital Signs: [] ROM: Right Upper Extremity: [] Left Upper Extremity: [] Right Lower Extremity: [] Left Lower Extremity: [] Strength: Right Upper Extremity: [] Left Upper Extremity: [] Right Lower Extremity: [] Left Lower Extremity: [] Sensation: [] Bed Mobility/Transfers: [] Gait: [] Balance: [] Static Sitting: [] Dynamic Sitting: [] Static Standing: [] Dynamic Standing: [] Special Tests: Mobility Limitations Standardized Measure [facility] AM-PAC 6 clicks Basic Mobility Inpatient Short Form: Raw Score: [] Standardized Score: [] CMS Score: [] CMS Modifier: [] Informed Consent/Education: Patient instructed in purpose of PT consult and plan of care. Assessment: Patient is a [] year old [] referred to physical therapy services with the diagnosis of []. Patient presents with clinical signs and symptoms consistent with [], as demonstrated by the following impairment level findings: []. Impairments are contributing to the following functional limitations: AMPAC score. Patient is assessed as a [] Low 41787 [] Moderate 27576 [] High 79505 complexity based on the following: History: [] Examination: [] Presentation: [] Decision Making: [] Goals: Goals X1 week 1. Supine-Sit [] 2. Sit-Supine [] 3. Sit-Stand [] 4. Stand-Sit [] 5. Bed-Chair [] 6. Chair-Bed [] 7. Gait [] 8. Stairs [] 9. Independent with home exercise program [] 10. Balance [] Plan of Care/Treatment Plan: 1-2x/day, 7 days/week x 1 week. Plan of care has been reviewed with the REFRACTIVE SURGEON providing the service under Physical Therapy direction. Initiate Physical Therapy intervention for strengthening, bed mobility, transfers, gait, stairs, balance training, use of assistive device. DISCHARGE RECOMMENDATIONS: [] TREATMENT CODE/TIME: []
[2018-05-19] MEDS: ceFAZolin 2,000 MG in Normal Saline 100 ML 100 MG IVPB ×2 (14:44→21:57)
[2018-05-19 16:52] VITALS: BP 161/72; PULSE 74; RESP 18; TEMP 36.4; O2SAT 95
[2018-05-19] MEDS: Pantoprazole 40 MG VIAL IVP (17:08)
[2018-05-19 19:50] VITALS: BP 156/76; PULSE 74; RESP 17; TEMP 36.7; O2SAT 98
[2018-05-19] MEDS: oxyCODONE 10 MG TAB PO (19:51)
[2018-05-19] MEDS: Mirtazapine 15 MG TAB PO (19:51)
[2018-05-19] MEDS: Acetaminophen 325 MG TAB PO (19:51)
[2018-05-19 23:48] VITALS: BP 132/62; PULSE 72; RESP 19; TEMP 37; O2SAT 95
[2018-05-20] MEDS: Acetaminophen 325 MG TAB PO ×2 (00:01→13:54)
[2018-05-20] MEDS: oxyCODONE 10 MG TAB PO ×2 (00:01→20:49)
[2018-05-20] MEDS: Heparin 5,000 UNITS/ML VIAL 5000 UNITS SC ×3 (00:02→17:03)
[2018-05-20] MEDS: ceFAZolin 2,000 MG in Normal Saline 100 ML 100 MG IVPB (06:05)
[2018-05-20 08:57] VITALS: BP 152/84; PULSE 80; RESP 18; TEMP 36.5; O2SAT 95
[2018-05-20] MEDS: Fenofibrate, Micronized 145 MG TAB PO (09:12)
[2018-05-20] MEDS: Magnesium Oxide 400 MG TAB PO ×2 (09:13→20:45)
[2018-05-20] MEDS: Docusate Sodium 100 MG CAP PO ×3 (09:13→20:45)
[2018-05-20] MEDS: Furosemide 40 MG TAB PO (09:13)
[2018-05-20] MEDS: Atorvastatin 20 MG TAB 60 MG PO (09:13)
[2018-05-20] MEDS: CARVEDILOL 12.5 MG TAB PO ×2 (09:13→20:45)
[2018-05-20] MEDS: Fluticasone NASAL SPRAY 16 GM BTL NS (09:13)
[2018-05-20] MEDS: Aspirin E.C. 81 MG TABEC PO (09:13)
[2018-05-20] MEDS: Senna TAB 1 TAB PO ×2 (09:13→20:45)
[2018-05-20] MEDS: Normal Saline 500 ML 30 ML IV (10:50)
[2018-05-20] MEDS: Normal Saline Flush 10 ML SYR IVP ×3 (10:50→16:59)
[2018-05-20] MEDS: Fluticasone-Umeclidin-Vilanter [Trelegy Ellipta] IH (10:58)
[2018-05-20] MEDS: Insulin Aspart 300 UNITS/3 ML PEN SC (11:53)
[2018-05-20] MEDS: ceFAZolin 2,000 MG in Normal Saline 100 ML 200 MG IVPB ×2 (13:55→22:20)
--- NOTE | 2018-05-20 14:28 | CHAPLAIN ---
Kam was sitting up in his chair when I visited. 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 He said he will be here for a while because he is getting IV antibiotics, three times a day, so it's easier to stay than drive back and forth from [place]. Kam didn't identify anyone family members of support people who visit.
[2018-05-20 15:50] VITALS: BP 151/89; PULSE 83; RESP 16; TEMP 36.8; O2SAT 98
[2018-05-20] MEDS: Pantoprazole 40 MG VIAL IVP (17:00)
[2018-05-20] MEDS: Mirtazapine 15 MG TAB PO (20:45)
[2018-05-21] MEDS: Normal Saline Flush 10 ML SYR IVP ×4 (06:05→21:37)
[2018-05-21] MEDS: ceFAZolin 2,000 MG in Normal Saline 100 ML 200 MG IVPB ×3 (06:06→21:36)
[2018-05-21] MEDS: Acetaminophen 325 MG TAB PO ×3 (06:15→21:36)
[2018-05-21] MEDS: Bisacodyl 5 MG TABEC PO (06:16)
[2018-05-21 07:30] VITALS: BP 149/73; PULSE 75; RESP 16; TEMP 36; O2SAT 96
[2018-05-21 07:47] LABS: Abs Immature Grans 0.01 k/cumm (0.0-0.09); Absolute Eosinophil Count 0.23 k/cumm (0.0-0.7); Absolute Lymphocyte Count 2.17 k/cumm (1.2-3.4); Absolute Monocyte Count 0.61 k/cumm (0.11-0.7); Absolute Neutrophil Count 4.12 k/cumm (1.2-6.7); Basophils % 1.4; Eosinophils % 3.2; HCT 37.7 % (40.0-50.0); HGB 12.3 g/dL (13.5-17.5); Immature Grans % 0.1; Mean Corp. HGB Concentration 32.6 g/dL (32.0-36.0); Mean Corpuscular Hemoglobin 29.1 pg (27.0-33.0); Mean Corpuscular Volume 89.1 fL (80-95); Mean Platelet Volume 8.8 fL (8.0-11.0); Monocytes % 8.4; Neutrophils % 56.9; Platelet Count 400 x1000/uL (130-400); RBC 4.23 m/cumm (4.50-6.00); RBC Distribution Width 15.7 % (11.8-14.1); White Blood Cell Count 7.24 k/cumm (4.4-10.8)
[2018-05-21 07:56] LABS: Anion Gap 11.2 mmol/L (3-11); BUN 29 mg/dL (7-18); C-Reactive Protein 0.76 mg/dL (0.0-0.3); CO2 25.8 mmol/L (21.0-32.0); CREATININE 1.59 mg/dL (0.70-1.30); Calcium 9.8 mg/dL (8.5-10.1); Chloride 102 mmol/L (98-107); Estimated GFR 42.89 (mL/min/1.73m2); Glucose 159 mg/dL (70-100); Magnesium 1.8 mg/dL (1.8-2.4); Potassium 4.1 mmol/L (3.5-5.1); Sodium 139 mmol/L (136-145)
[2018-05-21] MEDS: Fluticasone-Umeclidin-Vilanter [Trelegy Ellipta] IH (08:04)
[2018-05-21] MEDS: Insulin Aspart 300 UNITS/3 ML PEN SC ×3 (08:47→17:05)
[2018-05-21] MEDS: oxyCODONE 10 MG TAB PO ×2 (08:51→21:36)
[2018-05-21] MEDS: Magnesium Oxide 400 MG TAB PO ×2 (08:51→19:52)
[2018-05-21] MEDS: Atorvastatin 20 MG TAB 60 MG PO (08:51)
[2018-05-21] MEDS: amLODIPine 10 MG TAB PO (08:51)
[2018-05-21] MEDS: Senna TAB 1 TAB PO ×2 (08:52→19:52)
[2018-05-21] MEDS: CARVEDILOL 12.5 MG TAB PO ×2 (08:52→19:52)
[2018-05-21] MEDS: Docusate Sodium 100 MG CAP PO ×3 (08:52→19:52)
[2018-05-21] MEDS: Aspirin E.C. 81 MG TABEC PO (08:53)
[2018-05-21] MEDS: Furosemide 40 MG TAB PO (08:53)
[2018-05-21] MEDS: Fenofibrate, Micronized 145 MG TAB PO (08:53)
[2018-05-21] MEDS: Fluticasone NASAL SPRAY 16 GM BTL NS (08:54)
[2018-05-21] MEDS: Heparin 5,000 UNITS/ML VIAL 5000 UNITS SC ×4 (08:54→23:22)
[2018-05-21] MEDS: Normal Saline 500 ML 30 ML IV (14:35)
[2018-05-21 15:48] VITALS: BP 100/65; PULSE 78; RESP 18; TEMP 36.2; O2SAT 94
[2018-05-21] MEDS: Pantoprazole 40 MG VIAL IVP (16:16)
--- NOTE | 2018-05-21 16:28 | PDOC.CMACT ---
- If Service Date Differs Date of service: 05/21/18 Time of Service: 16:28 Care Management Activity Note CM met with Kam and [facility] today at the bedside. Kam is sitting up in the chair he is engaged in conversation. He enjoys the daily news paper and is thankful for it. He talks with his family over the phone several times a day. He reports that his mood has improved and he is feeling better. Kam was encouraged to ambulate in the halls and go out with family when possible. Kam will complete the application for subsidized housing with [facility]. [facility] will identify other resources for assisted and independent living. Kam signed consents for [facility] to work with area agencies to assist in housing and other resources in the community. P: Kam will remain SB1 for IV antibiotics anticipate end date is 06/22/18. He will continue to receive support through [facility]. [facility] will assist Kam in applying for choices for care moderate needs, Kam would also benefit from meals on wheels at time of discharge.
[2018-05-21] MEDS: Mirtazapine 15 MG TAB PO (19:52)
[2018-05-21 20:00] VITALS: BP 123/86; PULSE 85; RESP 20; TEMP 37; O2SAT 96
[2018-05-22 04:04] VITALS: BP 134/73; PULSE 73; RESP 16; TEMP 36; O2SAT 95
[2018-05-22] MEDS: Normal Saline Flush 10 ML SYR IVP ×4 (06:01→21:42)
[2018-05-22] MEDS: ceFAZolin 2,000 MG in Normal Saline 100 ML 200 MG IVPB ×3 (06:01→21:42)
[2018-05-22 07:45] VITALS: BP 138/76; PULSE 76; RESP 18; TEMP 36.1; O2SAT 96
[2018-05-22] MEDS: Insulin Aspart 300 UNITS/3 ML PEN SC ×2 (08:18→12:23)
[2018-05-22] MEDS: Acetaminophen 325 MG TAB PO ×3 (08:19→21:41)
[2018-05-22] MEDS: Fluticasone NASAL SPRAY 16 GM BTL NS (08:19)
[2018-05-22] MEDS: Milk of Magnesia 30 ML CUP PO (08:19)
[2018-05-22] MEDS: Heparin 5,000 UNITS/ML VIAL 5000 UNITS SC ×2 (08:19→16:38)
[2018-05-22] MEDS: Atorvastatin 20 MG TAB 60 MG PO (08:20)
[2018-05-22] MEDS: Senna TAB 1 TAB PO ×2 (08:20→20:03)
[2018-05-22] MEDS: Magnesium Oxide 400 MG TAB PO ×2 (08:23→20:03)
[2018-05-22] MEDS: amLODIPine 10 MG TAB PO (08:23)
[2018-05-22] MEDS: Aspirin E.C. 81 MG TABEC PO (08:23)
[2018-05-22] MEDS: Fenofibrate, Micronized 145 MG TAB PO (08:23)
[2018-05-22] MEDS: CARVEDILOL 12.5 MG TAB PO ×2 (08:24→20:02)
[2018-05-22] MEDS: Furosemide 40 MG TAB PO (08:24)
[2018-05-22] MEDS: Docusate Sodium 100 MG CAP PO ×3 (08:24→20:03)
[2018-05-22] MEDS: Fluticasone-Umeclidin-Vilanter [Trelegy Ellipta] IH (09:37)
--- NOTE | 2018-05-22 15:22 | PT.INTREAT ---
Date of service: 05/22/18 Time of Service: 15:22 PT Notes Inpatient Physical Therapy Treatment Note [facility] Date: 05/22/18 PRECAUTIONS: Fall SUBJECTIVE: Kam states that he continues to have left-sided gluteal and posterior thigh pain, although he is feeling better overall. OBJECTIVE: PAIN: The subjective portion of this note. BED MOBILITY/TRANSFERS Rolling L/R: I Supine-sit: I Sit-supine: I Sit-stand: I Stand-sit: I Chair-bed: I GAIT Assistive Device: No AD Weight bearing: Full Assist: I Distance: 100' Deviation: Slow pace MANUAL THERAPY: Patient in prone position, performed DTM and TPR techniques throughout left lumbar paraspinals, piriformis, QL, and glutes. STAIRS: Up/down 6x4 and 4x6 using one rail and a step to pattern, independently. NEURO RE-ED: Patient completed static balance retraining and proprioceptive program, as per flow sheet. Patient was able to tolerate feet-close with eyes-closed exercise x1 minute without UE support. Patient continues to require UE support for activities performed in tandem stance and SLS. Patient indicates left LE spasms with balance retraining exercises. ASSESSMENT: Patient tolerated session with c/o pain in left glutes and posterior thigh with manual therapy and balance retraining exercises. Patient would benefit from continued balance retraining exercises and manual therapy for left-sided pain relief. PLAN: Continue with PTs POC TREATMENT CODE/TIME: 35 minutes; 68925, [id number]
--- NOTE | 2018-05-22 15:30 | PTTR_ITS ---
Date of service: 05/22/18 Time of Service: 15:22 PT Notes Inpatient Physical Therapy Treatment Note [facility] Date: 05/22/18 PRECAUTIONS: Fall SUBJECTIVE: Kam states that he continues to have left-sided gluteal and posterior thigh pain, although he is feeling better overall. OBJECTIVE: PAIN: The subjective portion of this note. BED MOBILITY/TRANSFERS Rolling L/R: I Supine-sit: I Sit-supine: I Sit-stand: I Stand-sit: I Chair-bed: I GAIT Assistive Device: No AD Weight bearing: Full Assist: I Distance: 100' Deviation: Slow pace MANUAL THERAPY: Patient in prone position, performed DTM and TPR techniques throughout left lumbar paraspinals, piriformis, QL, and glutes. STAIRS: Up/down 6x4 and 4x6 using one rail and a step to pattern, independently. NEURO RE-ED: Patient completed static balance retraining and proprioceptive program, as per flow sheet. Patient was able to tolerate feet-close with eyes- closed exercise x1 minute without UE support. Patient continues to require UE support for activities performed in tandem stance and SLS. Patient indicates left LE spasms with balance retraining exercises. ASSESSMENT: Patient tolerated session with c/o pain in left glutes and posterior thigh with manual therapy and balance retraining exercises. Patient would benefit from continued balance retraining exercises and manual therapy for left-sided pain relief. PLAN: Continue with PTs POC TREATMENT CODE/TIME: 35 minutes; 00254, [id number]
[2018-05-22 15:51] VITALS: BP 133/73; PULSE 76; RESP 19; TEMP 36.5; O2SAT 97
[2018-05-22] MEDS: Pantoprazole 40 MG VIAL IVP (16:37)
[2018-05-22] MEDS: Mirtazapine 15 MG TAB PO (20:03)
[2018-05-22 20:16] VITALS: BP 168/86; PULSE 75; RESP 18; TEMP 36; O2SAT 97
[2018-05-22] MEDS: oxyCODONE 10 MG TAB PO (21:41)
[2018-05-22] MEDS: Normal Saline 500 ML 30 ML IV (21:42)
[2018-05-23] MEDS: Heparin 5,000 UNITS/ML VIAL 5000 UNITS SC ×4 (00:17→23:22)
[2018-05-23] MEDS: Normal Saline Flush 10 ML SYR IVP ×4 (05:29→21:44)
[2018-05-23] MEDS: ceFAZolin 2,000 MG in Normal Saline 100 ML 200 MG IVPB ×3 (05:29→21:43)
[2018-05-23 05:51] VITALS: BP 127/66; PULSE 76; RESP 20; TEMP 36.7; O2SAT 95
[2018-05-23 07:30] VITALS: BP 156/69; PULSE 72; RESP 18; TEMP 36.4; O2SAT 95
[2018-05-23] MEDS: Docusate Sodium 100 MG CAP PO ×3 (07:42→19:48)
[2018-05-23] MEDS: Fluticasone-Umeclidin-Vilanter [Trelegy Ellipta] IH (07:42)
[2018-05-23] MEDS: Furosemide 40 MG TAB PO (07:42)
[2018-05-23] MEDS: Fluticasone NASAL SPRAY 16 GM BTL NS (07:42)
[2018-05-23] MEDS: Aspirin E.C. 81 MG TABEC PO (07:42)
[2018-05-23] MEDS: Atorvastatin 20 MG TAB 60 MG PO (07:42)
[2018-05-23] MEDS: Senna TAB 1 TAB PO ×2 (07:42→19:48)
[2018-05-23] MEDS: amLODIPine 10 MG TAB PO (07:42)
[2018-05-23] MEDS: Magnesium Oxide 400 MG TAB PO ×2 (07:43→19:48)
[2018-05-23] MEDS: CARVEDILOL 12.5 MG TAB PO ×2 (07:43→19:47)
[2018-05-23] MEDS: Insulin Aspart 300 UNITS/3 ML PEN SC ×3 (07:43→17:18)
[2018-05-23] MEDS: Fenofibrate, Micronized 145 MG TAB PO (07:43)
[2018-05-23 10:20] VITALS: BP 134/70; PULSE 83; RESP 18; O2SAT 97
--- NOTE | 2018-05-23 15:46 | W.PM.PROGNOT ---
Date of Service Date of service: 05/23/18 Time of Service: 15:46 Assessment and Plan (1) MSSA bacteremia: Current visit: No Status: Acute Continue IV ancef 2 gram Q 8 hrs through last dose of 06/20/18. Post completion of abx, would need to have weekly blood cultures for several weeks while maintained on keflex 500 mg PO BID for remainder of his life to ensure that it is sufficient. (2) Cellulitis of right hand: Current visit: No Status: Acute Resolved. IV vancomycin discontinued. (3) CHF (congestive heart failure): Current visit: No Status: Chronic Stable. Continue aspirin, statin, Coreg. Lasix remains at 40 mg daily, renal function improving, at baseline based on labs dated 05/21/2018. (4) CAD (coronary artery disease): Current visit: No Status: Chronic Stable continue treatment as above. (5) Acute kidney injury superimposed on chronic kidney disease: Current visit: No Status: Acute Renal function improved from previous, appears to be at baseline, continue weekly labs. (6) DVT prophylaxis: Current visit: No Status: Acute Subcutaneous heparin. (7) Discharge planning issues: Current visit: No Status: Acute He is a DNR/DNI. This case was discussed with Dr. Mercado who is in agreement. Subjective Interval history since last seen: Mr. Pittman is on swing bed level 1 for treatment of bacteremia. He denies any concerns at the present time. His right hand cellulitis has improved, the lesion is healed, there appears to be mild edema at the previous IV site, no erythema. 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 He denies dizziness, shortness of breath, coughing, wheezing, chest pain/pressure, palpitations, he is eating and drinking and tolerating his diet without nausea, vomiting or diarrhea. He has had some constipation, he is on a bowel regimen. He offers no other concerns. Exam Narrative Exam Narrative: General: Very pleasant elderly male, sitting up in the chair, pleasant and cooperative, in no acute distress. Neurological: A&Ox3, no focal deficits Skin: Healed lesion on the dorsal aspect of his right hand, no erythema. Remains tender on palpation. HEENT: Atraumatic, normocephalic, EOMI, MMM, no JVD Cardiovascular: Heart has regular rate and rhythm, 2/6 systolic ejection murmur noted at left sternal border and apex. Lungs: Respirations even and unlabored, lung sounds with few scattered wheezes noted throughout. Gastrointestinal: abdomen is soft, nontender, nondistended Extremities: Perfused, no clubbing, cyanosis or edema. Objective Objective Clinical Data: Vital Signs Temperature 36.4 C L 05/23/18 07:30 Temperature Source Tympanic 05/23/18 07:30 Pulse 83 05/23/18 10:20 Pulse Rhythm Regular 05/23/18 08:00 Respiratory Rate 18 05/23/18 10:20 Respiratory Effort Non-Labored 05/23/18 08:00 Respiratory Depth Normal 05/23/18 08:00 Respiratory Pattern Normal 05/23/18 08:00 Blood Pressure 134/70 05/23/18 10:20 Pulse Oximetry 97 05/23/18 10:20 Oxygen Delivery Method Room Air 05/23/18 10:20 Oxygen Flow Rate 0 05/23/18 10:20 Pain Level 0 05/23/18 10:20 Comment 05/23/18 10:20 Intake & Output 05/22/18 05/23/18 05/23/18 23:59 11:59 23:59 Intake Total 680 / 1520 970 / 1310 340 / 1310 Balance 680 / 1520 970 / 1310 340 / 1310 Weight 85.4 kg Intake: IV 200 / 800 110 / 210 100 / 210 Oral 480 / 720 860 / 1100 240 / 1100 Other: Urine Color Pale Yellow Urine Appearance Clear Urine Odor None Comment voids independently in the bathroom Laboratory Results WBC 7.24 k/cumm (4.4-10.8) 05/21/18 07:35 RBC 4.23 m/cumm (4.50-6.00) L 05/21/18 07:35 Hgb 12.3 g/dL (13.5-17.5) L 05/21/18 07:35 Hct 37.7 % (40.0-50.0) L 05/21/18 07:35 MCV 89.1 fL (80-95) 05/21/18 07:35 MCH 29.1 pg (27.0-33.0) 05/21/18 07:35 MCHC 32.6 g/dL (32.0-36.0) 05/21/18 07:35 RDW 15.7 % (11.8-14.1) H 05/21/18 07:35 Plt Count 400 x1000/uL (130-400) 05/21/18 07:35 MPV 8.8 fL (8.0-11.0) 05/21/18 07:35 Immature Gran % 0.1 05/21/18 07:35 Neutrophils % 56.9 05/21/18 07:35 Lymphocytes % 30.0 05/21/18 07:35 Monocytes % 8.4 05/21/18 07:35 Eosinophils % 3.2 05/21/18 07:35 Basophils % 1.4 05/21/18 07:35 Absolute Neutrophils 4.12 k/cumm (1.2-6.7) 05/21/18 07:35 Absolute Lymphocytes 2.17 k/cumm (1.2-3.4) 05/21/18 07:35 Absolute Monocytes 0.61 k/cumm (0.11-0.7) 05/21/18 07:35 Absolute Eosinophils 0.23 k/cumm (0.0-0.7) 05/21/18 07:35 Absolute Basophils 0.10 k/cumm (0.0-0.2) 05/21/18 07:35 Sodium 139 mmol/L (136-145) 05/21/18 07:35 Potassium 4.1 mmol/L (3.5-5.1) 05/21/18 07:35 Chloride 102 mmol/L (98-107) 05/21/18 07:35 Carbon Dioxide 25.8 mmol/L (21.0-32.0) 05/21/18 07:35 Anion Gap 11.2 mmol/L (3-11) H 05/21/18 07:35 BUN 29 mg/dL (7-18) H 05/21/18 07:35 Creatinine 1.59 mg/dL (0.70-1.30) H 05/21/18 07:35 Estimated GFR/1.73 m2 42.89 (mL/min/1.73m2) 05/21/18 07:35 Glucose 159 mg/dL (70-100) H 05/21/18 07:35 Calcium 9.8 mg/dL (8.5-10.1) 05/21/18 07:35 Magnesium 1.8 mg/dL (1.8-2.4) 05/21/18 07:35 C-Reactive Protein 0.76 mg/dL (0.0-0.3) H 05/21/18 07:35 Stl C.difficile Tox PCR Cancelled 05/18/18 06:40 Vancomycin Trough 17.3 ug/mL (10.0-20.0) 05/18/18 09:00 C.difficile Tox Source Cancelled 05/18/18 06:40
[2018-05-23] MEDS: Pantoprazole 40 MG VIAL IVP (15:52)
[2018-05-23 17:00] VITALS: BP 145/81; PULSE 75; RESP 16; TEMP 37.2; O2SAT 98
[2018-05-23] MEDS: Acetaminophen 325 MG TAB PO (19:47)
[2018-05-23] MEDS: Mirtazapine 15 MG TAB PO (19:48)
[2018-05-23] MEDS: oxyCODONE 10 MG TAB PO (19:48)
[2018-05-24 00:05] VITALS: BP 165/83; PULSE 80; RESP 19; TEMP 36.8; O2SAT 94
[2018-05-24] MEDS: ceFAZolin 2,000 MG in Normal Saline 100 ML 200 MG IVPB ×3 (05:29→21:30)
[2018-05-24] MEDS: Normal Saline Flush 10 ML SYR IVP ×3 (05:30→21:29)
[2018-05-24 07:37] VITALS: BP 156/76; PULSE 76; RESP 18; TEMP 36.5; O2SAT 95
[2018-05-24] MEDS: Fluticasone-Umeclidin-Vilanter [Trelegy Ellipta] IH (07:50)
[2018-05-24] MEDS: Insulin Aspart 300 UNITS/3 ML PEN SC ×2 (07:59→17:00)
[2018-05-24] MEDS: Furosemide 40 MG TAB PO (08:00)
[2018-05-24] MEDS: CARVEDILOL 12.5 MG TAB PO ×2 (08:00→19:56)
[2018-05-24] MEDS: Docusate Sodium 100 MG CAP PO ×3 (08:00→19:56)
[2018-05-24] MEDS: Fenofibrate, Micronized 145 MG TAB PO (08:00)
[2018-05-24] MEDS: Atorvastatin 20 MG TAB 60 MG PO (08:00)
[2018-05-24] MEDS: Fluticasone NASAL SPRAY 16 GM BTL NS (08:00)
[2018-05-24] MEDS: Heparin 5,000 UNITS/ML VIAL 5000 UNITS SC ×3 (08:01→23:54)
[2018-05-24] MEDS: Magnesium Oxide 400 MG TAB PO ×2 (08:01→19:56)
[2018-05-24] MEDS: Senna TAB 1 TAB PO ×2 (08:01→19:55)
[2018-05-24] MEDS: Aspirin E.C. 81 MG TABEC PO (08:01)
[2018-05-24] MEDS: amLODIPine 10 MG TAB PO (08:01)
[2018-05-24] MEDS: Milk of Magnesia 30 ML CUP PO (08:07)
--- NOTE | 2018-05-24 09:46 | NUR.NOTE ---
Nursing Note: 7930: RN and pt discuss pt driving home today to his apartment in [place]. RN states concerns to pt about driving after episode of sob when out on pass on 05/23. pt states I have felt fine, I am not concerned, my family will be meeting me there. I plan to leave here at 1000 and return before 2 o'clock. pt states he will take his FS at home and treat himself with insulin if necessary and report results to RN upon his return to [facility]. bag lunch ordered for pt to take with him to assure lunch meal while out on pass. 4945: RN gives pt direct phone number to [place] and requests that pt call when he arrives at his apartment and then again when he leaves to return to [facility]. pt in agreement.
[2018-05-24 16:05] VITALS: BP 140/80; PULSE 92; RESP 19; TEMP 36.9; O2SAT 96
[2018-05-24] MEDS: Acetaminophen 325 MG TAB PO (18:03)
[2018-05-24 19:53] VITALS: BP 123/64; PULSE 80
[2018-05-24] MEDS: Mirtazapine 15 MG TAB PO (19:55)
[2018-05-24] MEDS: Pantoprazole 40 MG TABCR PO (19:55)
[2018-05-24] MEDS: oxyCODONE 10 MG TAB PO (19:56)
[2018-05-24 23:32] VITALS: BP 140/70; PULSE 80; RESP 16; TEMP 36.8; O2SAT 95
[2018-05-25] MEDS: Normal Saline Flush 10 ML SYR IVP (06:04)
[2018-05-25] MEDS: ceFAZolin 2,000 MG in Normal Saline 100 ML 200 MG IVPB ×3 (06:05→21:53)
[2018-05-25] MEDS: Normal Saline 500 ML 30 ML IV (06:08)
[2018-05-25 07:49] VITALS: BP 134/74; PULSE 85; RESP 18; TEMP 36.8; O2SAT 96
[2018-05-25] MEDS: Fluticasone-Umeclidin-Vilanter [Trelegy Ellipta] IH (07:49)
[2018-05-25] MEDS: Docusate Sodium 100 MG CAP PO ×3 (08:13→20:13)
[2018-05-25] MEDS: Fluticasone NASAL SPRAY 16 GM BTL NS (08:13)
[2018-05-25] MEDS: Atorvastatin 20 MG TAB 60 MG PO (08:13)
[2018-05-25] MEDS: Magnesium Oxide 400 MG TAB PO ×2 (08:14→20:13)
[2018-05-25] MEDS: Heparin 5,000 UNITS/ML VIAL 5000 UNITS SC ×2 (08:14→16:03)
[2018-05-25] MEDS: Aspirin E.C. 81 MG TABEC PO (08:14)
[2018-05-25] MEDS: Fenofibrate, Micronized 145 MG TAB PO (08:14)
[2018-05-25] MEDS: Furosemide 40 MG TAB PO (08:14)
[2018-05-25] MEDS: amLODIPine 10 MG TAB PO (08:14)
[2018-05-25] MEDS: CARVEDILOL 12.5 MG TAB PO ×2 (08:14→20:13)
[2018-05-25] MEDS: Senna TAB 1 TAB PO ×2 (08:14→20:13)
[2018-05-25] MEDS: Insulin Aspart 300 UNITS/3 ML PEN SC (08:15)
[2018-05-25 15:55] VITALS: BP 121/73; PULSE 77; RESP 18; TEMP 37; O2SAT 97
[2018-05-25] MEDS: Acetaminophen 325 MG TAB PO (20:12)
[2018-05-25] MEDS: oxyCODONE 10 MG TAB PO (20:12)
[2018-05-25] MEDS: Mirtazapine 15 MG TAB PO (20:13)
[2018-05-25] MEDS: Pantoprazole 40 MG TABCR PO (20:13)
[2018-05-26 00:27] VITALS: BP 122/69; PULSE 78; RESP 16; TEMP 36.6; O2SAT 95
[2018-05-26] MEDS: Normal Saline Flush 10 ML SYR IVP ×3 (06:13→21:40)
[2018-05-26] MEDS: ceFAZolin 2,000 MG in Normal Saline 100 ML 200 MG IVPB ×3 (06:13→21:40)
[2018-05-26] MEDS: Fluticasone NASAL SPRAY 16 GM BTL NS (07:57)
[2018-05-26] MEDS: Fenofibrate, Micronized 145 MG TAB PO (07:57)
[2018-05-26] MEDS: CARVEDILOL 12.5 MG TAB PO ×2 (07:58→19:55)
[2018-05-26] MEDS: Aspirin E.C. 81 MG TABEC PO (07:58)
[2018-05-26] MEDS: Insulin Aspart 300 UNITS/3 ML PEN SC ×3 (07:58→17:11)
[2018-05-26] MEDS: amLODIPine 10 MG TAB PO (07:58)
[2018-05-26] MEDS: Magnesium Oxide 400 MG TAB PO ×2 (07:58→19:55)
[2018-05-26] MEDS: Furosemide 40 MG TAB PO (07:58)
[2018-05-26] MEDS: Atorvastatin 20 MG TAB 60 MG PO (07:58)
[2018-05-26] MEDS: Docusate Sodium 100 MG CAP PO ×3 (07:58→19:55)
[2018-05-26] MEDS: Senna TAB 1 TAB PO ×2 (07:58→19:55)
[2018-05-26 08:11] VITALS: BP 154/80; PULSE 76; RESP 18; TEMP 36.7; O2SAT 96
[2018-05-26 09:01] VITALS: BP 127/61; PULSE 89; RESP 16; O2SAT 97
[2018-05-26] MEDS: Milk of Magnesia 30 ML CUP PO (09:09)
[2018-05-26] MEDS: Fluticasone-Umeclidin-Vilanter [Trelegy Ellipta] IH (11:25)
--- NOTE | 2018-05-26 12:52 | PDOC.CMPRO ---
- If Service Date Differs Date of service: 05/26/18 Time of Service: 12:53 Care Management Progress Note S/O: [facility] met with Kam he is walking in the halls and ambulating well. independently. Kam was able to go to his home over the weekend and do the stairs. He did say that the stairs tired him as he has 13 stairs once he returns home. [facility] did schedule [facility] for his podiatry appointment on 05/29/18 they will pick him up at 1530 and return him to [facility] at 1630. [facility] spoke with Yola at [facility] to confirm. Kam is aware of his appointment and transportation. CM contacted [facility] today and reviewed next follow up meeting to provide support during discharge process. Next meeting will be on 06/17/18 at 1000. [facility] will establish meals on wheels for Kam when he returns home. A; Kam is a 73 year old male currently SB1 for IV antibiotics r/t MSSA bacteremia. P: Kam will plan to return home to his apartment through [employer] on 06/21/18. He has his own can here at [facility] and will transport himself home. He will have supports through [facility] Radha Child is current outreach person working with Kam.
--- NOTE | 2018-05-26 13:03 | CMPROGNOTE_ITS ---
- If Service Date Differs Date of service: 05/26/18 Time of Service: 12:53 Care Management Progress Note S/O: [facility] met with Kam he is walking in the halls and ambulating well. independently. Kam was able to go to his home over the weekend and do the stairs. He did say that the stairs tired him as he has 13 stairs once he returns home. [facility] did schedule [facility] for his podiatry appointment on 05/29/18 they will pick him up at 1530 and return him to [facility] at 1630. [facility] spoke with Yola at [facility] to confirm. Kam is aware of his appointment and transportation. CM contacted [facility] today and reviewed next follow up meeting to provide support during discharge process. Next meeting will be on 06/17/18 at 1000. [facility] will establish meals on wheels for Kam when he returns home. A; Kam is a 73 year old male currently SB1 for IV antibiotics r/t MSSA bacteremia. P: Kam will plan to return home to his apartment through [employer] on 06/21/18. He has his own can here at [facility] and will transport himself home. He will have supports through [facility] Radha Child is current outreach person working with Kam.
--- NOTE | 2018-05-26 13:52 | PT.INPN ---
Date of service: 05/26/18 Time of Service: 13:10 PT Notes Date: 05/26/2018 Referring Doctor: Lazara Soto MD PT Orders: PT CONSULT: Eval and treat Treatment Dates: 05/19/18 - 05/26/18 Treatment Sessions: 3 Precautions: Fall. Standard. Patient Profile/Admitting Diagnosis: Patient admitted 05/02/18 due to MSSA bacteremia and right hand cellulitis. He transitioned from MedSurg to Swing Bed status on 05/16/2018 for a 6 week course of antibiotics. Referral was received on 05/16/2018 for progression of strength, balance, and activity tolerance under swing bed status. He's been participating in PT intervention 2x/week for the past 7 days, with a total of 3 PT sessions. PMHX: DONTAE, HTN, CAD with h/o STEMI 12/2017 and s/p AICD placement; CHF; DM; COPD Social History/Home Situation: Patient lives independently in an apartment in [place]. He has a significant other who is supportive. He is normally independent, and gets around without an assistive device. He admits to balance issues, and had been attending outpatient PT as recently as February 2018 to address this. Equipment Owned/DME: Has FWW but does not use. Subjective: Kam reports improving mobility, but states that he continues to be afraid of falling. He has been walking the halls on his own throughout the day, and managed 3 flights of stairs at his home this weekend. He states that it was exhausting, but he managed. He continues to have a great deal of posterior hip pain, which feels better after manual therapy. Objective: General Observation: Patient is seen today on his recliner. No lines. Mental Status: A&Ox3. Pain: Patient reports ongoing posterior hip pain left greater than right. This is at his baseline. ROM: Right Upper Extremity: Functional opening and closing of hand seen. Shoulder, elbow, and wrist joints WFL. Left Upper Extremity: Grossly WFL Right Lower Extremity: Grossly WFL Left Lower Extremity: Grossly WFL Strength: Right Upper Extremity: Shoulder flexion 3-/5. Biceps 4-/5.. 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 Left Upper Extremity: Shoulder flexion 3-/5. Biceps 4-/5. Right Lower Extremity: Hip flexion 5/5. Quads 5/5. HS 4/5. Ankle DF 4+/5. Left Lower Extremity: Hip flexion 4+/5, with reports of lateral hip pain. Quads 5/5. HS 4/5. Ankle DF 4+/5. Bed Mobility/Transfers: supine->sit: independent sit->supine: independent sit->stand: Independent stand->sit: Independent Gait: Patient has been consistently ambulating the halls independently, without assistive device. He was witnessed to ambulate 300 feet independently today. Balance: Static Sitting: Normal Dynamic Sitting: Normal Static Standing: Good Dynamic Standing: Good Special Tests: 30-second chair rise score of 9, with complaints of increasing thigh and posterior hip pain. Four stage balance test: Patient was able to assume sections 1-3 for 10 seconds with supervision ; he was however unable to assume one-legged stance. Treatment: This session consisted of reevaluation, followed by instruction in an independent exercise program for daily completion in his room. He requires max cues and tactile feedback for appropriate completion of all activities. Patient was provided with 2 pound ankle weights and handouts for completion of exercises as indicated on flowsheet. He also completed 5 minutes of NuStep biking. Assessment: Patient is a 73 year old male who has been participating in physical therapy services to improve mobility during prolonged hospitalization for management of MSSA bacteremia and cellulitis of the right hand. He has thus far demonstrated improvement in mobility levels as demonstrated above under bed mobility/transfer levels. He continues to require skilled PT intervention to maximize safety and mobility with plan to discharge to an assisted living facility at the conclusion of antibiotic treatment. He currently demonstrates the following impairment level findings: 1. Limited 4 stage balance test score: Inability to assume one-legged stance (3/4 score) 2. Limited ability to bend down and carry 20 pound dog 3. Shortness of breath and fatigue with negotiation of a flight of stairs 4. Persistent pain on left gluteal area and posterior thigh Impairments are contributing to the following functional limitations: 1. Unable to safely ambulate community distances 2. Unable to safely ambulate household distances independently 3. Unable to manage a flight of stairs independently without fatigue and shortness of breath 4. Fall risk Goals: Goals X1 week 1. Patient will independently negotiate a flight of stairs without an assistive device with no report of increased pain on gluteal area/posterior thigh or dyspnea (Progressing Toward) 2. Patient will be able to assume tandem stance on both legs and one leg at stance for 10 seconds each in order to reduce fall risk (met) 3. Patient will demonstrate gait speed of at least 1.5 m/s in order to facilitate return to community ambulation (not assessed at today's visit) 4. Patient will demonstrate 100% mastery of room exercises as part of his functional maintenance program (Progressing Toward) 5. Patient will perform 30-second chair rice score of 15 without complaints of pain on gluteal area/posterior thigh nor dyspnea (Progressing Toward) Plan of Care/Treatment: Plan to continue skilled PT services OD twice a week for 2 weeks for strength, balance, and ambulation progression. Plan of care has been reviewed with the HOME DEMONSTRATOR providing the service under Physical Therapy direction. Initiate Physical Therapy intervention for strengthening, transfers, gait, stairs, balance training, manual therapy, and room exercises. DISCHARGE RECOMMENDATIONS: Patient may benefit from continued home health services at level 3 facility upon discharge from this hospital in order to facilitate a smooth transition, evaluate home/DAINA safety, and establish/implement/continue a functional maintenance program to maintain and achieve gains in therapy. TREATMENT CODE/TIME: 1:10-1:50 ([id number])
[2018-05-26] MEDS: Normal Saline 500 ML 30 ML IV (13:54)
[2018-05-26 15:40] VITALS: BP 153/61; PULSE 77; RESP 19; TEMP 36.7; O2SAT 98
[2018-05-26] MEDS: Mirtazapine 15 MG TAB PO (19:55)
[2018-05-26] MEDS: oxyCODONE 10 MG TAB PO (19:55)
[2018-05-26] MEDS: Acetaminophen 325 MG TAB PO (19:55)
[2018-05-26] MEDS: Pantoprazole 40 MG TABCR PO (19:55)
[2018-05-27] VITALS: BP 113/68; PULSE 75; RESP 16; TEMP 36.7; O2SAT 96
[2018-05-27] MEDS: ceFAZolin 2,000 MG in Normal Saline 100 ML 200 MG IVPB ×3 (06:26→21:31)
[2018-05-27] MEDS: Acetaminophen 325 MG TAB PO ×2 (06:26→20:13)
[2018-05-27] MEDS: Normal Saline Flush 10 ML SYR IVP ×2 (06:26→14:44)
[2018-05-27] MEDS: Fluticasone-Umeclidin-Vilanter [Trelegy Ellipta] IH (07:38)
[2018-05-27 07:47] VITALS: BP 150/79; PULSE 68; RESP 18; TEMP 36.6; O2SAT 96
[2018-05-27] MEDS: Insulin Aspart 300 UNITS/3 ML PEN SC ×2 (08:39→12:22)
[2018-05-27] MEDS: Fenofibrate, Micronized 145 MG TAB PO (08:40)
[2018-05-27] MEDS: Magnesium Oxide 400 MG TAB PO ×2 (08:41→20:14)
[2018-05-27] MEDS: CARVEDILOL 12.5 MG TAB PO ×2 (08:41→20:12)
[2018-05-27] MEDS: Furosemide 40 MG TAB PO (08:41)
[2018-05-27] MEDS: Atorvastatin 20 MG TAB 60 MG PO (08:41)
[2018-05-27] MEDS: Senna TAB 1 TAB PO ×2 (08:41→20:14)
[2018-05-27] MEDS: amLODIPine 10 MG TAB PO (08:41)
[2018-05-27] MEDS: Aspirin E.C. 81 MG TABEC PO (08:41)
[2018-05-27] MEDS: Docusate Sodium 100 MG CAP PO ×3 (08:41→20:13)
[2018-05-27] MEDS: Fluticasone NASAL SPRAY 16 GM BTL NS (08:41)
[2018-05-27 15:45] VITALS: BP 127/73; PULSE 82; RESP 18; TEMP 36.9; O2SAT 97
[2018-05-27] MEDS: Colchicine 0.6 MG TAB PO ×2 (20:13)
[2018-05-27] MEDS: Pantoprazole 40 MG TABCR PO (20:13)
[2018-05-27] MEDS: Mirtazapine 15 MG TAB PO (20:14)
[2018-05-27 23:59] VITALS: BP 117/68; PULSE 78; RESP 20; TEMP 36.8; O2SAT 97
[2018-05-28] MEDS: Normal Saline Flush 10 ML SYR IVP ×4 (06:21→22:04)
[2018-05-28] MEDS: ceFAZolin 2,000 MG in Normal Saline 100 ML 200 MG IVPB ×3 (06:21→22:04)
[2018-05-28] MEDS: Fluticasone-Umeclidin-Vilanter [Trelegy Ellipta] IH (07:09)
[2018-05-28 08:09] VITALS: BP 153/77; PULSE 76; RESP 16; TEMP 36.7; O2SAT 98
[2018-05-28] MEDS: Fluticasone NASAL SPRAY 16 GM BTL NS (08:20)
[2018-05-28] MEDS: Insulin Aspart 300 UNITS/3 ML PEN SC ×3 (08:20→16:44)
[2018-05-28] MEDS: Colchicine 0.6 MG TAB PO ×2 (08:22→19:28)
[2018-05-28] MEDS: Fenofibrate, Micronized 145 MG TAB PO (08:22)
[2018-05-28] MEDS: Docusate Sodium 100 MG CAP PO ×3 (08:22→19:29)
[2018-05-28] MEDS: CARVEDILOL 12.5 MG TAB PO ×2 (08:22→19:28)
[2018-05-28] MEDS: Atorvastatin 20 MG TAB 60 MG PO (08:22)
[2018-05-28] MEDS: amLODIPine 10 MG TAB PO (08:23)
[2018-05-28] MEDS: Aspirin E.C. 81 MG TABEC PO (08:23)
[2018-05-28] MEDS: Senna TAB 1 TAB PO ×2 (08:23→19:28)
[2018-05-28] MEDS: Furosemide 40 MG TAB PO (08:23)
[2018-05-28] MEDS: Magnesium Oxide 400 MG TAB PO ×2 (08:23→19:28)
[2018-05-28 16:55] VITALS: BP 144/78; PULSE 103; RESP 22; TEMP 36.1; O2SAT 96
[2018-05-28] MEDS: oxyCODONE 10 MG TAB PO (19:28)
[2018-05-28] MEDS: Pantoprazole 40 MG TABCR PO (19:28)
[2018-05-28] MEDS: Mirtazapine 15 MG TAB PO (19:28)
[2018-05-28] MEDS: Acetaminophen 325 MG TAB PO (19:29)
[2018-05-28 20:30] VITALS: BP 113/67; PULSE 88; RESP 18; TEMP 36.3; O2SAT 96
[2018-05-29] MEDS: ceFAZolin 2,000 MG in Normal Saline 100 ML 200 MG IVPB ×3 (05:36→21:31)
[2018-05-29] MEDS: Fluticasone-Umeclidin-Vilanter [Trelegy Ellipta] IH (08:02)
[2018-05-29 08:13] VITALS: BP 121/76; PULSE 75; RESP 18; TEMP 36.2; O2SAT 93
[2018-05-29] MEDS: Insulin Aspart 300 UNITS/3 ML PEN SC ×2 (08:30→12:22)
[2018-05-29] MEDS: Colchicine 0.6 MG TAB PO ×2 (08:31→20:12)
[2018-05-29] MEDS: Fluticasone NASAL SPRAY 16 GM BTL NS (08:31)
[2018-05-29] MEDS: Acetaminophen 325 MG TAB PO ×2 (08:32→20:10)
[2018-05-29] MEDS: Fenofibrate, Micronized 145 MG TAB PO (08:33)
[2018-05-29] MEDS: Atorvastatin 20 MG TAB 60 MG PO (08:33)
[2018-05-29] MEDS: Magnesium Oxide 400 MG TAB PO ×2 (08:34→20:11)
[2018-05-29] MEDS: CARVEDILOL 12.5 MG TAB PO ×2 (08:34→20:11)
[2018-05-29] MEDS: Senna TAB 1 TAB PO ×2 (08:34→20:11)
[2018-05-29] MEDS: Furosemide 40 MG TAB PO (08:34)
[2018-05-29] MEDS: amLODIPine 10 MG TAB PO (08:34)
[2018-05-29] MEDS: Aspirin E.C. 81 MG TABEC PO (08:35)
[2018-05-29] MEDS: Docusate Sodium 100 MG CAP PO ×3 (08:35→20:12)
--- NOTE | 2018-05-29 13:59 | CHAPLAIN ---
Kam's Seat Cover Maker, Nanda Pierce, let me know that Kam is interested in having the desktop manager bring palms to him for Palm Saturday and would like to attend protestant on , so he wanted to know what time the masses were on Saturday. I let him know that the [facility] masses at [facility] are at 8 a.m. an 11 a.m. I called the rectory and spoke with Lili, the assistant secretary to let her know that Kam would like to receive palms and she said she would let Fr. Guevara know. She expects Fr. Guevara will be visit here tomorrow.
[2018-05-29] MEDS: Normal Saline 500 ML 30 ML IV (14:28)
[2018-05-29] MEDS: Normal Saline Flush 10 ML SYR IVP (14:28)
--- NOTE | 2018-05-29 14:37 | PDOC.CMACT ---
- If Service Date Differs Date of service: 05/29/18 Time of Service: 14:37 Care Management Activity Note CM met with Kam today and delivered him the local newspaper as well as a word search book. Kam states that he has gone to his home a couple of times as he would like to return there once he has completed his course of IV antibiotics. Kam has an appointment today with Dr. Bobby and [facility] will transport him at 1515 to the parking ramp attendant office. Kam enjoys doing word searches, reading the local newspaper, and is offered Reiki, Music therapy, and therapy dogs, when available. P: Kam will remain SB1 for IV antibiotics anticipate end date is 06/22/18. He will continue to receive support through COA. [employer]A will assist Kam in applying for choices for care moderate needs, Kam would also benefit from meals on wheels at time of discharge.
--- NOTE | 2018-05-29 15:12 | PT.INTREAT ---
PT Notes Inpatient Physical Therapy Treatment Note [facility] Date: 05/29/18 PRECAUTIONS: Fall SUBJECTIVE: Kam states that he continues to have right and left-sided gluteal and posterior thigh pain. He reports that he has been using the NuStep and ankle weights independently. OBJECTIVE: PAIN: The subjective portion of this note. BED MOBILITY/TRANSFERS Rolling L/R: I Supine-sit: I Sit-supine: I Sit-stand: I Stand-sit: I Chair-bed: I GAIT: Independent without assistive device MANUAL THERAPY: With patient in prone position, performed DTM and TPR techniques throughout bilateral lumbar paraspinals, piriformis, QL, and glutes, with symptomatic relief. NEURO RE-ED: Patient completed several static balance retraining and proprioceptive exercises, as per flow sheet. Patient demonstrates improvement in balance with less and tandem stance activities without UE support. Reports of spasms with balance retraining exercises. ASSESSMENT: Patient tolerated session with c/o pain in right and left glutes and posterior thigh with manual therapy. Patient would benefit from continued balance retraining exercises and manual therapy for left-sided pain relief. PLAN: Continue with PTs POC TREATMENT CODE/TIME: 30 minutes; [id number] x2
--- NOTE | 2018-05-29 15:17 | PTTR_ITS ---
PT Notes Inpatient Physical Therapy Treatment Note [facility] Date: 05/29/18 PRECAUTIONS: Fall SUBJECTIVE: Kam states that he continues to have right and left-sided gluteal and posterior thigh pain. He reports that he has been using the NuStep and ankle weights independently. OBJECTIVE: PAIN: The subjective portion of this note. BED MOBILITY/TRANSFERS Rolling L/R: I Supine-sit: I Sit-supine: I Sit-stand: I Stand-sit: I Chair-bed: I GAIT: Independent without assistive device MANUAL THERAPY: With patient in prone position, performed DTM and TPR techniques throughout bilateral lumbar paraspinals, piriformis, QL, and glutes, with symptomatic relief. NEURO RE-ED: Patient completed several static balance retraining and propriocept radha exercises, as per flow sheet. Patient demonstrates improvement in balance with less and tandem stance activities without UE support. Reports of spasms with balance retraining exercises. ASSESSMENT: Patient tolerated session with c/o pain in right and left glutes and posterior thigh with manual therapy. Patient would benefit from continued balance retraining exercises and manual therapy for left-sided pain relief. PLAN: Continue with PTs POC TREATMENT CODE/TIME: 30 minutes; [id number] x2
[2018-05-29 17:40] VITALS: BP 124/75; PULSE 85; RESP 16; TEMP 37; O2SAT 97
[2018-05-29] MEDS: oxyCODONE 10 MG TAB PO (20:10)
[2018-05-29] MEDS: Mirtazapine 15 MG TAB PO (20:10)
[2018-05-29] MEDS: Pantoprazole 40 MG TABCR PO (20:11)
[2018-05-29 20:49] VITALS: BP 140/70; PULSE 81; RESP 18; TEMP 36.3; O2SAT 96
[2018-05-30 01:30] VITALS: BP 129/74; PULSE 82; RESP 16; TEMP 36.6; O2SAT 96
[2018-05-30] MEDS: ceFAZolin 2,000 MG in Normal Saline 100 ML 200 MG IVPB ×3 (05:42→22:09)
[2018-05-30] MEDS: Normal Saline Flush 10 ML SYR IVP ×2 (05:43→13:49)
[2018-05-30] MEDS: Acetaminophen 325 MG TAB PO ×2 (05:45→20:18)
[2018-05-30] MEDS: oxyCODONE 10 MG TAB PO ×2 (05:46→20:18)
[2018-05-30 07:26] LABS: HCT 36.5 % (40.0-50.0); HGB 11.7 g/dL (13.5-17.5); Mean Corp. HGB Concentration 32.1 g/dL (32.0-36.0); Mean Corpuscular Hemoglobin 29.2 pg (27.0-33.0); Mean Platelet Volume 9.6 fL (8.0-11.0); RBC 4.01 m/cumm (4.50-6.00); RBC Distribution Width 14.9 % (11.8-14.1); White Blood Cell Count 6.07 k/cumm (4.4-10.8)
[2018-05-30 07:42] VITALS: BP 136/71; PULSE 78; RESP 19; TEMP 36.2; O2SAT 97
[2018-05-30 08:03] LABS: Platelet Count 242 x1000/uL (130-400)
[2018-05-30 08:24] LABS: Anion Gap 10.1 mmol/L (3-11); BUN 36 mg/dL (7-18); CO2 24.9 mmol/L (21.0-32.0); CREATININE 1.47 mg/dL (0.70-1.30); Calcium 9.4 mg/dL (8.5-10.1); Chloride 106 mmol/L (98-107); Estimated GFR 46.96 (mL/min/1.73m2); Glucose 187 mg/dL (70-100); Potassium 3.9 mmol/L (3.5-5.1); Sodium 141 mmol/L (136-145)
[2018-05-30] MEDS: Insulin Aspart 300 UNITS/3 ML PEN SC ×2 (08:25→16:47)
[2018-05-30] MEDS: Fluticasone NASAL SPRAY 16 GM BTL NS (08:25)
[2018-05-30] MEDS: Docusate Sodium 100 MG CAP PO ×3 (08:26→20:18)
[2018-05-30] MEDS: Aspirin E.C. 81 MG TABEC PO (08:26)
[2018-05-30] MEDS: Fenofibrate, Micronized 145 MG TAB PO (08:26)
[2018-05-30] MEDS: Colchicine 0.6 MG TAB PO (08:26)
[2018-05-30] MEDS: CARVEDILOL 12.5 MG TAB PO ×2 (08:27→20:17)
[2018-05-30] MEDS: Magnesium Oxide 400 MG TAB PO ×2 (08:27→20:17)
[2018-05-30] MEDS: Furosemide 40 MG TAB PO (08:27)
[2018-05-30] MEDS: Atorvastatin 20 MG TAB 60 MG PO (08:27)
[2018-05-30] MEDS: Senna TAB 1 TAB PO ×2 (08:28→20:17)
[2018-05-30] MEDS: amLODIPine 10 MG TAB PO (08:28)
[2018-05-30 08:35] LABS: ALT 23 U/L (12-78); AST 24 U/L (15-37); Albumin 3.5 g/dL (3.4-5.0); Alkaline Phosphatase 55 U/L (46-116); Bilirubin, Direct 0.13 mg/dL (0.00-0.20); Bilirubin, Total 0.3 mg/dL (0.2-1.0); Total Protein 7.1 g/dL (6.4-8.2)
[2018-05-30] MEDS: Fluticasone-Umeclidin-Vilanter [Trelegy Ellipta] IH (12:34)
[2018-05-30] MEDS: Normal Saline 500 ML 30 ML IV (13:48)
[2018-05-30 15:58] VITALS: BP 112/68; PULSE 73; RESP 17; TEMP 36.6; O2SAT 96
--- NOTE | 2018-05-30 17:01 | W.PM.PROGNOT ---
Date of Service Date of service: 05/30/18 Time of Service: 17:02 Assessment and Plan (1) MSSA bacteremia: Current visit: No Status: Acute Continue IV ancef 2 gram q8hrs last dose on 06/20/18. Post completion of abx, would need to have weekly blood cultures for several weeks while maintained on keflex 500 mg PO BID for remainder of his life to ensure that it is sufficient. (2) Cellulitis of right hand: Current visit: No Status: Acute Resolved. No longer on IV vancomycin. (3) CHF (congestive heart failure): Current visit: No Status: Chronic Stable. Continue aspirin, statin, Coreg. Lasix remains at 40 mg daily, renal function continues to improve, at baseline. (4) CAD (coronary artery disease): Current visit: No Status: Chronic Stable continue treatment as above. (5) Acute kidney injury superimposed on chronic kidney disease: Current visit: No Status: Acute Renal function improved, appears to be at baseline, continue weekly labs. (6) Diabetes mellitus, type II: Current visit: No Status: Chronic Blood glucose has been elevated, increase long acting insulin to 12 units at HS, continue to monitor blood glucose, adjust insulin as needed. (7) DVT prophylaxis: Current visit: No Status: Acute Subcutaneous heparin. (8) Discharge planning issues: Current visit: No Status: Acute He is a DNR/DNI. This case was discussed with Dr. Soto who is in agreement. Subjective Interval history since last seen: Mr. Pittman is on swing bed level 1 for treatment of bacteremia. He reports that his left hip is sore due to increased activity over the last couple of days. He went out to a podiatry appointment yesterday. He reports his energy level is good, he denies dizziness, fevers, chills, shortness of breath, coughing, wheezing, chest pain/pressure, palpitations, he is eating and drinking and tolerating his diet without nausea, vomiting or diarrhea. He has had some constipation, he is on a bowel regimen, had a BM yesterday. No dysuria, hematuria, frequency or urgency. He was also treated for a cellulitis of the right hand, he reports that it has healed. He offers no other concerns. Exam Narrative Exam Narrative: General: Very pleasant elderly male, sitting up in the chair, pleasant and cooperative, in no acute distress. Neurological: A&Ox3, no focal deficits Skin: Healed lesion on the dorsal aspect of his right hand, no erythema. Remains tender on palpation. HEENT: Atraumatic, normocephalic, EOMI, MMM, no JVD Cardiovascular: Heart has regular rate and rhythm, 2/6 systolic ejection murmur noted at left sternal border and apex. Lungs: Respirations even and unlabored, lung sounds clear to auscultation throughout. Gastrointestinal: Normoactive bowel sounds, abdomen is soft, nontender, nondistended Extremities: well perfused, no clubbing, cyanosis or edema. Objective Objective Clinical Data: Abnormal lab results 05/30/18 05/30/18 Range/Units 06:20 06:20 RBC 4.01 L (4.50-6.00) m/cumm Hgb 11.7 L (13.5-17.5) g/dL Hct 36.5 L (40.0-50.0) % RDW 14.9 H (11.8-14.1) % BUN 36 H (7-18) mg/dL Creatinine 1.47 H (0.70-1.30) mg/dL Glucose 187 H (70-100) mg/dL Vital Signs Temperature 36.6 C 05/30/18 15:58 Temperature Source Tympanic 05/30/18 15:58 Pulse 73 05/30/18 15:58 Pulse Rhythm Regular 05/30/18 07:35 Respiratory Rate 17 05/30/18 15:58 Respiratory Effort Non-Labored 05/30/18 07:35 Respiratory Depth Normal 05/30/18 07:35 Respiratory Pattern Normal 05/30/18 07:35 Blood Pressure 112/68 05/30/18 15:58 Pulse Oximetry 96 05/30/18 15:58 Oxygen Delivery Method Room Air 05/30/18 15:58 Oxygen Flow Rate 0 05/30/18 15:58 Pain Level 5 05/29/18 08:32 Comment 05/26/18 09:01 Intake & Output 05/29/18 05/30/18 05/30/18 23:59 11:59 23:59 Intake Total 458.5 / 568.5 970 / 1210 240 / 1210 Balance 458.5 / 568.5 970 / 1210 240 / 1210 Weight 84.4 kg Intake: IV 218.5 / 328.5 120 / 120 0 / 120 Oral 240 / 240 850 / 1090 240 / 1090 Other: Urine Color Pale Pale Yellow Yellow Urine Appearance Clear Urine Odor None None Comment pt voids in the tiolet independently Laboratory Results WBC 6.07 k/cumm (4.4-10.8) 05/30/18 06:20 RBC 4.01 m/cumm (4.50-6.00) L 05/30/18 06:20 Hgb 11.7 g/dL (13.5-17.5) L 05/30/18 06:20 Hct 36.5 % (40.0-50.0) L 05/30/18 06:20 MCV 91.0 fL (80-95) 05/30/18 06:20 MCH 29.2 pg (27.0-33.0) 05/30/18 06:20 MCHC 32.1 g/dL (32.0-36.0) 05/30/18 06:20 RDW 14.9 % (11.8-14.1) H 05/30/18 06:20 Plt Count 242 x1000/uL (130-400) D 05/30/18 06:20 MPV 9.6 fL (8.0-11.0) 05/30/18 06:20 Immature Gran % 0.1 05/21/18 07:35 Neutrophils % 56.9 05/21/18 07:35 Lymphocytes % 30.0 05/21/18 07:35 Monocytes % 8.4 05/21/18 07:35 Eosinophils % 3.2 05/21/18 07:35 Basophils % 1.4 05/21/18 07:35 Absolute Neutrophils 4.12 k/cumm (1.2-6.7) 05/21/18 07:35 Absolute Lymphocytes 2.17 k/cumm (1.2-3.4) 05/21/18 07:35 Absolute Monocytes 0.61 k/cumm (0.11-0.7) 05/21/18 07:35 Absolute Eosinophils 0.23 k/cumm (0.0-0.7) 05/21/18 07:35 Absolute Basophils 0.10 k/cumm (0.0-0.2) 05/21/18 07:35 Sodium 141 mmol/L (136-145) 05/30/18 06:20 Potassium 3.9 mmol/L (3.5-5.1) 05/30/18 06:20 Chloride 106 mmol/L (98-107) 05/30/18 06:20 Carbon Dioxide 24.9 mmol/L (21.0-32.0) 05/30/18 06:20 Anion Gap 10.1 mmol/L (3-11) 05/30/18 06:20 BUN 36 mg/dL (7-18) H 05/30/18 06:20 Creatinine 1.47 mg/dL (0.70-1.30) H 05/30/18 06:20 Estimated GFR/1.73 m2 46.96 (mL/min/1.73m2) 05/30/18 06:20 Glucose 187 mg/dL (70-100) H 05/30/18 06:20 Calcium 9.4 mg/dL (8.5-10.1) 05/30/18 06:20 Magnesium 1.8 mg/dL (1.8-2.4) 05/21/18 07:35 Total Bilirubin 0.3 mg/dL (0.2-1.0) 05/30/18 06:20 Conjugated Bilirubin 0.13 mg/dL (0.00-0.20) 05/30/18 06:20 AST 24 U/L (15-37) 05/30/18 06:20 ALT 23 U/L (12-78) 05/30/18 06:20 Alkaline Phosphatase 55 U/L (46-116) 05/30/18 06:20 C-Reactive Protein 0.76 mg/dL (0.0-0.3) H 05/21/18 07:35 Total Protein 7.1 g/dL (6.4-8.2) 05/30/18 06:20 Albumin 3.5 g/dL (3.4-5.0) 05/30/18 06:20 Stl C.difficile Tox PCR Cancelled 05/18/18 06:40 Vancomycin Trough 17.3 ug/mL (10.0-20.0) 05/18/18 09:00 C.difficile Tox Source Cancelled 05/18/18 06:40
[2018-05-30] MEDS: Mirtazapine 15 MG TAB PO (20:17)
[2018-05-30] MEDS: Pantoprazole 40 MG TABCR PO (20:17)
[2018-05-31 00:06] VITALS: BP 106/67; PULSE 77; RESP 17; TEMP 36.7; O2SAT 95
[2018-05-31] MEDS: ceFAZolin 2,000 MG in Normal Saline 100 ML 200 MG IVPB ×3 (05:49→22:05)
[2018-05-31] MEDS: Normal Saline Flush 10 ML SYR IVP ×2 (05:49→14:27)
[2018-05-31 07:40] VITALS: BP 154/71; PULSE 72; RESP 20; TEMP 36.9; O2SAT 97
[2018-05-31] MEDS: Colchicine 0.6 MG TAB PO (08:14)
[2018-05-31] MEDS: Aspirin E.C. 81 MG TABEC PO (08:14)
[2018-05-31] MEDS: Fenofibrate, Micronized 145 MG TAB PO (08:14)
[2018-05-31] MEDS: Magnesium Oxide 400 MG TAB PO ×2 (08:14→20:14)
[2018-05-31] MEDS: Docusate Sodium 100 MG CAP PO ×3 (08:14→20:08)
[2018-05-31] MEDS: amLODIPine 10 MG TAB PO (08:14)
[2018-05-31] MEDS: CARVEDILOL 12.5 MG TAB PO ×2 (08:14→20:15)
[2018-05-31] MEDS: Senna TAB 1 TAB PO ×2 (08:14→20:14)
[2018-05-31] MEDS: Furosemide 40 MG TAB PO (08:14)
[2018-05-31] MEDS: Atorvastatin 20 MG TAB 60 MG PO (08:14)
[2018-05-31] MEDS: Insulin Aspart 300 UNITS/3 ML PEN SC ×2 (08:15→11:42)
[2018-05-31] MEDS: Fluticasone NASAL SPRAY 16 GM BTL NS (08:15)
[2018-05-31] MEDS: Fluticasone-Umeclidin-Vilanter [Trelegy Ellipta] IH (11:08)
[2018-05-31 16:55] VITALS: BP 152/82; PULSE 95; RESP 19; TEMP 36.7; O2SAT 98
[2018-05-31] MEDS: Mirtazapine 15 MG TAB PO (20:14)
[2018-05-31] MEDS: Acetaminophen 325 MG TAB PO (20:15)
[2018-05-31] MEDS: oxyCODONE 10 MG TAB PO (20:15)
[2018-05-31] MEDS: Pantoprazole 40 MG TABCR PO (20:15)
[2018-05-31] MEDS: Normal Saline 500 ML 30 ML IV (22:06)
[2018-05-31 23:51] VITALS: BP 115/65; PULSE 70; RESP 17; TEMP 36.7; O2SAT 97
[2018-06-01] MEDS: ceFAZolin 2,000 MG in Normal Saline 100 ML 200 MG IVPB ×3 (05:53→21:50)
[2018-06-01] MEDS: Normal Saline Flush 10 ML SYR IVP ×3 (05:54→21:54)
[2018-06-01 07:15] VITALS: BP 141/78; PULSE 70; RESP 18; TEMP 36; O2SAT 97
[2018-06-01] MEDS: Aspirin E.C. 81 MG TABEC PO (07:40)
[2018-06-01] MEDS: amLODIPine 10 MG TAB PO (07:40)
[2018-06-01] MEDS: Fenofibrate, Micronized 145 MG TAB PO (07:40)
[2018-06-01] MEDS: Atorvastatin 20 MG TAB 60 MG PO (07:40)
[2018-06-01] MEDS: Furosemide 40 MG TAB PO (07:40)
[2018-06-01] MEDS: Magnesium Oxide 400 MG TAB PO ×2 (07:40→20:03)
[2018-06-01] MEDS: Fluticasone NASAL SPRAY 16 GM BTL NS (07:41)
[2018-06-01] MEDS: Insulin Aspart 300 UNITS/3 ML PEN SC ×3 (07:41→16:58)
[2018-06-01] MEDS: Docusate Sodium 100 MG CAP PO ×3 (07:41→20:03)
[2018-06-01] MEDS: CARVEDILOL 12.5 MG TAB PO ×2 (07:41→20:03)
[2018-06-01] MEDS: Senna TAB 1 TAB PO ×2 (08:00→20:03)
[2018-06-01] MEDS: Fluticasone-Umeclidin-Vilanter [Trelegy Ellipta] IH (08:06)
[2018-06-01 16:06] VITALS: BP 117/76; PULSE 83; RESP 17; TEMP 37.1; O2SAT 98
[2018-06-01] MEDS: Acetaminophen 325 MG TAB PO ×2 (17:31→21:49)
[2018-06-01] MEDS: oxyCODONE 10 MG TAB PO ×2 (17:31→21:49)
[2018-06-01 19:41] VITALS: BP 123/76; PULSE 85; RESP 17; TEMP 36.5; O2SAT 96
[2018-06-01] MEDS: Mirtazapine 15 MG TAB PO (20:03)
[2018-06-01] MEDS: Pantoprazole 40 MG TABCR PO (20:03)
[2018-06-01 23:38] VITALS: BP 125/74; PULSE 77; RESP 17; TEMP 36.4; O2SAT 96
[2018-06-02] MEDS: ceFAZolin 2,000 MG in Normal Saline 100 ML 200 MG IVPB ×3 (06:08→21:42)
[2018-06-02] MEDS: Normal Saline Flush 10 ML SYR IVP ×3 (06:09→21:42)
[2018-06-02 07:00] VITALS: BP 126/75; PULSE 73; RESP 18; TEMP 36.1; O2SAT 95
[2018-06-02] MEDS: Fluticasone-Umeclidin-Vilanter [Trelegy Ellipta] IH (07:01)
[2018-06-02] MEDS: Fenofibrate, Micronized 145 MG TAB PO (07:41)
[2018-06-02] MEDS: Fluticasone NASAL SPRAY 16 GM BTL NS (07:41)
[2018-06-02] MEDS: Atorvastatin 20 MG TAB 60 MG PO (07:41)
[2018-06-02] MEDS: CARVEDILOL 12.5 MG TAB PO ×2 (07:42→19:51)
[2018-06-02] MEDS: Magnesium Oxide 400 MG TAB PO ×2 (07:42→19:50)
[2018-06-02] MEDS: Furosemide 40 MG TAB PO (07:42)
[2018-06-02] MEDS: Docusate Sodium 100 MG CAP PO ×3 (07:42→19:51)
[2018-06-02] MEDS: amLODIPine 10 MG TAB PO (07:42)
[2018-06-02] MEDS: Senna TAB 1 TAB PO ×2 (07:42→19:51)
[2018-06-02] MEDS: Aspirin E.C. 81 MG TABEC PO (07:42)
[2018-06-02] MEDS: Insulin Aspart 300 UNITS/3 ML PEN SC ×3 (07:45→17:03)
[2018-06-02 16:21] VITALS: BP 145/80; PULSE 84; RESP 18; TEMP 36.5; O2SAT 97
[2018-06-02] MEDS: Pantoprazole 40 MG TABCR PO (19:50)
[2018-06-02] MEDS: Mirtazapine 15 MG TAB PO (19:51)
[2018-06-02] MEDS: Normal Saline 500 ML 30 ML IV (21:41)
[2018-06-02] MEDS: Acetaminophen 325 MG TAB PO (21:42)
[2018-06-02] MEDS: oxyCODONE 10 MG TAB PO (21:42)
[2018-06-03 03:24] VITALS: BP 127/72; PULSE 70; RESP 19; TEMP 36.2; O2SAT 96
[2018-06-03] MEDS: ceFAZolin 2,000 MG in Normal Saline 100 ML 200 MG IVPB ×3 (06:05→21:23)
[2018-06-03] MEDS: Normal Saline Flush 10 ML SYR IVP ×2 (06:05→14:26)
[2018-06-03] MEDS: Fluticasone-Umeclidin-Vilanter [Trelegy Ellipta] IH (07:42)
[2018-06-03 07:43] VITALS: BP 153/78; PULSE 74; RESP 18; TEMP 37.1; O2SAT 96
[2018-06-03] MEDS: Fluticasone NASAL SPRAY 16 GM BTL NS (07:44)
[2018-06-03] MEDS: Senna TAB 1 TAB PO ×2 (07:45→19:31)
[2018-06-03] MEDS: Aspirin E.C. 81 MG TABEC PO (07:45)
[2018-06-03] MEDS: Atorvastatin 20 MG TAB 60 MG PO (07:45)
[2018-06-03] MEDS: Magnesium Oxide 400 MG TAB PO ×2 (07:45→19:31)
[2018-06-03] MEDS: Fenofibrate, Micronized 145 MG TAB PO (07:45)
[2018-06-03] MEDS: Docusate Sodium 100 MG CAP PO ×3 (07:45→19:31)
[2018-06-03] MEDS: amLODIPine 10 MG TAB PO (07:46)
[2018-06-03] MEDS: Furosemide 40 MG TAB PO (07:46)
[2018-06-03] MEDS: CARVEDILOL 12.5 MG TAB PO ×2 (07:46→19:31)
[2018-06-03] MEDS: Insulin Aspart 300 UNITS/3 ML PEN SC ×3 (07:54→16:51)
[2018-06-03 16:45] VITALS: BP 137/77; PULSE 84; RESP 16; TEMP 36.8; O2SAT 97
--- NOTE | 2018-06-03 17:06 | INPN_ITS ---
Date of service: 06/02/18 Time of Service: 13:20 PT Notes Inpatient Physical Therapy Progress Note Date: 06/02/2018 Dates of Service: 05/27/18 through 06/02/18 Referring Doctor: Lazara Soto MD PT Orders: PT CONSULT: Eval and treat Precautions: Fall. Standard. Patient Profile/Admitting Diagnosis: Patient admitted 05/02/18 due to MSSA bacteremia and right hand cellulitis. He transitioned from MedSurg to Swing Bed status on 05/16/2018 for a 6 week course of antibiotics. Referral was received on 05/16/2018 for progression of strength, balance, and activity tolerance under swing bed status. PMHX: DONTAE, HTN, CAD with h/o STEMI 12/2017 and s/p AICD placement; CHF; DM; COPD Social History/Home Situation: Patient lives independently in an apartment in [place]. He has a significant other who is supportive. He is normally independent, and gets around without an assistive device. He admits to balance issues, and had been attending outpatient PT as recently as February 2018 to address this. Equipment Owned/DME: Has FWW but does not use. Subjective: Patient states that he is still having trouble with balance. He reports that his right foot is a little bit more painful because of his increased walking and stair climbing. He does not however complain of any dizz iness and he is happy that he is progressing enough. He states the more I go to my apartment and do stairs, the more confident I become . He is still hopeful that he can go back to his apartment with the same goal as he had on most recent evaluation: I want to be able to bend over and take care of my dog eventually. Patient states that the dog is closer to 20 pounds and is now 17 years old. Objective: General Observation: Patient is seen today on his recliner. No attachments/lines seen. No erythema nor swelling observed on the dorsum of right wrist Mental Status: A&Ox3. Pain: He continues to state that there are positions and activities that continue to trigger the pain on the left gluteal area down to the left posterior thigh to a point where his movement can be limited. ROM: Right Upper Extremity: Functional opening and closing of hand seen. Shoulder, elbow, and wrist joints WFL. Left Upper Extremity: Grossly WFL Right Lower Extremity: Grossly WFL Left Lower Extremity: Grossly WFL Strength: Right Upper Extremity: Shoulder flexion 3-/5. Biceps 4-/5.K 12 Principal is strong and functional. Left Upper Extremity: Shoulder flexion 3-/5. Biceps 4-/5. Right Lower Extremity: Hip flexion 5/5. Quads 5/5. HS 4/5. Ankle DF 4+/5. Left Lower Extremity: Hip flexion 4+/5, with reports of lateral hip pain. Quads 5/5. HS 4/5. Ankle DF 4+/5. Bed Mobility/Transfers: supine->sit: independent sit->supine: independent sit->stand: Independent stand->sit: Independent Gait: Patient has been independent with level surface ambulation in the [facility] unit without any assistive device. He has been very compliant about his functional maintenance program consisting of ambulate said ambulation activity 3-5 times a day. He does reports that fatigue can trigger discomfort on the left gluteal area and posterior thigh. Balance: Static Sitting: Normal Dynamic Sitting: Normal Static Standing: Good Dynamic Standing: Good Special Tests: Tinetti/AIDA score of 28/28 signifying low fall risk. 30-second chair rise score of 13 but patient complained of left thigh pain after activity. Four stage balance test: Patient was able to assume all 4 positions with the last 2 requiring PT contact-guard assist. Patient was able to maintain all 4 positions for 10 seconds demonstrating improvement static standing balance and signifying low fall risk. Mobility Limitations Standardized Measure [facility] AM-PAC 6 clicks Basic Mobility Inpatient Short Form: Raw Score: 23 CMS Score: 11.20% deficit Assessment: Patient is a 73 year old male referred to physical therapy services with the diagnosis of MSSA bacteremia and cellulitis of the right hand. He has thus far demonstrated improvement in mobility levels as demonstrated above under bed mobility/transfer levels. He continues to require skilled PT intervention to maximize safety and mobility with plan to discharge to an assisted living facility at the conclusion of antibiotic treatment. He currently demonstrates the following impairment level findings: 1. Limited ability to bend down and carry 20 pound dog 3. Shortness of breath, pain on L gluteal area/posterior thigh and fatigue with negotiation of a flight of stairs 4. Persistent pain on left gluteal area and posterior thigh Impairments are contributing to the following functional limitations: 1. Limited ability to safely ambulate community distances without resulting pain and discomfort on left gluteal area and left posterior thigh 2. Unable to manage a flight of stairs independently without discomfort on left gluteal area and left posterior thigh and fatigue 4. Low fall risk Patient is assessed as Low 32255 complexity based on the following: History: 73 year old male with complicated medical history admitted for medical management of right hand cellulitis and MSSA bacteremia Examination: Underlying impairments functional limitations as noted above resulting AMPAC score of 23 and an equivalent CMS score of 11.20% deficit Presentation: Evolving Decision Making: Low complexity Goals: Goals X1 week 1. Patient will independently negotiate a flight of stairs without an assistive device with no report of increased pain on gluteal area/posterior thigh or dyspnea--CONTINUE 2. Patient will be able to assume tandem stance on both legs and one leg at stance for 10 seconds each in order to reduce fall risk --MET 3. Patient will demonstrate gait speed of at least 1.5 m/s in order to facilitate return to community ambulation --CONTINUE 4. Patient will demonstrate 100% mastery of room exercises as part of his functional maintenance program --MET 5. Patient will perform 30-second chair rice score of 15 without complaints of pain on gluteal area/posterior thigh nor dyspnea --CONTINUE Plan of Care/Treatment: Plan to continue skilled PT services OD twice a week for 2 weeks with intervention to focus on advanced level balance exercises and continued stair negotiation progression. Plan of care has been reviewed with the COAT AGENT providing the service under Physical Therapy direction. Continue with physical Therapy intervention for strengthening, transfers, gait, stairs, balance training, manual therapy, and room exercises. DISCHARGE RECOMMENDATIONS: Patient may benefit from continued home health services at discharge destination upon discharge from this hospital in order to facilitate a smooth transition, evaluate home/DAINA safety, and establish/implement/continue a functional maintenance program to maintain and achieve gains in therapy. TREATMENT CODE/TIME: [id number] 34 minutes beginning at 13:20 PM. Thank you for this referral. Bridget Cochran, PT, DPT, CLT [facility]
[2018-06-03] MEDS: oxyCODONE 10 MG TAB PO (19:31)
[2018-06-03] MEDS: Acetaminophen 325 MG TAB PO (19:31)
[2018-06-03] MEDS: Pantoprazole 40 MG TABCR PO (19:31)
[2018-06-03] MEDS: Mirtazapine 15 MG TAB PO (19:31)
[2018-06-03 22:03] VITALS: BP 115/62; PULSE 80; RESP 18; TEMP 36.5; O2SAT 97
[2018-06-04] MEDS: ceFAZolin 2,000 MG in Normal Saline 100 ML 200 MG IVPB ×3 (05:56→21:43)
[2018-06-04] MEDS: Fluticasone-Umeclidin-Vilanter [Trelegy Ellipta] IH (07:28)
[2018-06-04 07:40] VITALS: BP 152/87; PULSE 77; RESP 19; TEMP 36.3; O2SAT 98
[2018-06-04] MEDS: Fluticasone NASAL SPRAY 16 GM BTL NS (07:45)
[2018-06-04] MEDS: Atorvastatin 20 MG TAB 60 MG PO (07:46)
[2018-06-04] MEDS: Senna TAB 1 TAB PO ×2 (07:46→20:09)
[2018-06-04] MEDS: Furosemide 40 MG TAB PO (07:46)
[2018-06-04] MEDS: Fenofibrate, Micronized 145 MG TAB PO (07:46)
[2018-06-04] MEDS: CARVEDILOL 12.5 MG TAB PO ×2 (07:46→20:12)
[2018-06-04] MEDS: Insulin Aspart 300 UNITS/3 ML PEN SC ×3 (07:46→17:03)
[2018-06-04] MEDS: Docusate Sodium 100 MG CAP PO ×3 (07:46→20:12)
[2018-06-04] MEDS: amLODIPine 10 MG TAB PO (07:46)
[2018-06-04] MEDS: Aspirin E.C. 81 MG TABEC PO (07:46)
[2018-06-04] MEDS: Magnesium Oxide 400 MG TAB PO ×2 (07:46→20:11)
[2018-06-04] MEDS: Normal Saline Flush 10 ML SYR IVP ×2 (14:22→21:44)
[2018-06-04] MEDS: Normal Saline 500 ML 30 ML IV ×2 (14:23→21:44)
[2018-06-04 16:50] VITALS: BP 160/89; PULSE 94; RESP 18; TEMP 36.1; O2SAT 98
[2018-06-04 17:00] VITALS: BP 154/70
[2018-06-04] MEDS: Acetaminophen 325 MG TAB PO (20:11)
[2018-06-04] MEDS: oxyCODONE 10 MG TAB PO (20:11)
[2018-06-04] MEDS: Mirtazapine 15 MG TAB PO (20:12)
[2018-06-04] MEDS: Pantoprazole 40 MG TABCR PO (20:12)
[2018-06-05 00:07] VITALS: BP 100/63; PULSE 72; RESP 16; TEMP 36.5; O2SAT 95
[2018-06-05] MEDS: Normal Saline Flush 10 ML SYR IVP ×3 (06:34→21:09)
[2018-06-05] MEDS: ceFAZolin 2,000 MG in Normal Saline 100 ML 200 MG IVPB ×3 (06:34→21:09)
[2018-06-05 07:15] VITALS: BP 168/75; PULSE 71; RESP 16; TEMP 36.6; O2SAT 97
--- NOTE | 2018-06-05 07:47 | CMACTNOTE_ITS ---
- If Service Date Differs Date of service: 06/05/18 Time of Service: 07:46 Care Management Activity Note CM met with Kam today and discussed his plans to return home to his apartment. He has been making phone calls and has had his phone and cable reconnected. He takes frequent walks in the halls and chats with staff in passing. He is pleasant and engaged during visits and is getting excited about going home and having his dog back. Kam enjoys reading the paper, watching television , visi ting with staff and doing word searches. P: Kam will remain SB1 for IV antibiotics anticipate end date is 06/20/18. He will continue to receive support through [employer]. [employer]A will assist Kam in applying f or choices for care moderate needs, Kam would also benefit from meals on wheels at time of discharge and has expressed interest in obtaining a life alert device.
[2018-06-05] MEDS: Aspirin E.C. 81 MG TABEC PO (08:00)
[2018-06-05] MEDS: Fenofibrate, Micronized 145 MG TAB PO (08:00)
[2018-06-05] MEDS: Magnesium Oxide 400 MG TAB PO ×2 (08:00→20:07)
[2018-06-05] MEDS: amLODIPine 10 MG TAB PO (08:00)
[2018-06-05] MEDS: Fluticasone NASAL SPRAY 16 GM BTL NS (08:00)
[2018-06-05] MEDS: Furosemide 40 MG TAB PO (08:00)
[2018-06-05] MEDS: Atorvastatin 20 MG TAB 60 MG PO (08:00)
[2018-06-05] MEDS: CARVEDILOL 12.5 MG TAB PO ×2 (08:00→20:07)
[2018-06-05] MEDS: Senna TAB 1 TAB PO ×2 (08:01→20:07)
[2018-06-05] MEDS: Docusate Sodium 100 MG CAP PO ×3 (08:01→20:07)
[2018-06-05] MEDS: Insulin Aspart 300 UNITS/3 ML PEN SC ×2 (08:01→12:02)
[2018-06-05] MEDS: Fluticasone-Umeclidin-Vilanter [Trelegy Ellipta] IH (12:02)
[2018-06-05 12:24] LABS: Abs Immature Grans 0.02 k/cumm (0.0-0.09); Absolute Basophil Count 0.04 k/cumm (0.0-0.2); Absolute Eosinophil Count 0.24 k/cumm (0.0-0.7); Absolute Lymphocyte Count 2.37 k/cumm (1.2-3.4); Absolute Monocyte Count 0.61 k/cumm (0.11-0.7); Absolute Neutrophil Count 5.74 k/cumm (1.2-6.7); Basophils % 0.4; Eosinophils % 2.7; HCT 42.5 % (40.0-50.0); HGB 13.9 g/dL (13.5-17.5); Immature Grans % 0.2; Lymphocytes % 26.3; Mean Corp. HGB Concentration 32.7 g/dL (32.0-36.0); Mean Corpuscular Hemoglobin 29.3 pg (27.0-33.0); Mean Corpuscular Volume 89.5 fL (80-95); Mean Platelet Volume 9.2 fL (8.0-11.0); Monocytes % 6.8; Neutrophils % 63.6; Platelet Count 257 x1000/uL (130-400); RBC 4.75 m/cumm (4.50-6.00); RBC Distribution Width 14.9 % (11.8-14.1); White Blood Cell Count 9.02 k/cumm (4.4-10.8)
[2018-06-05 12:39] LABS: ALT 17 U/L (12-78); AST 33 U/L (15-37); Albumin 4.3 g/dL (3.4-5.0); Alkaline Phosphatase 57 U/L (46-116); Anion Gap 10.2 mmol/L (3-11); BUN 31 mg/dL (7-18); Bilirubin, Total 0.4 mg/dL (0.2-1.0); C-Reactive Protein 0.35 mg/dL (0.0-0.3); CO2 28.8 mmol/L (21.0-32.0); CREATININE 1.76 mg/dL (0.70-1.30); Calcium 9.9 mg/dL (8.5-10.1); Chloride 103 mmol/L (98-107); Estimated GFR 38.15 (mL/min/1.73m2); Glucose 156 mg/dL (70-100); Magnesium 1.9 mg/dL (1.8-2.4); Potassium 3.9 mmol/L (3.5-5.1); Sodium 142 mmol/L (136-145); Total Protein 8.6 g/dL (6.4-8.2)
[2018-06-05 13:30] LABS: ESR 16 MM/HR (1-20)
[2018-06-05 15:40] VITALS: BP 137/73; PULSE 82; RESP 16; TEMP 36.2; O2SAT 97
--- NOTE | 2018-06-05 15:55 | W.PM.PROGNOT ---
Date of Service Date of service: 06/05/18 Time of Service: 15:55 Assessment and Plan (1) MSSA bacteremia: Current visit: No Status: Acute Continue IV ancef 2 gram q8hrs last dose on 06/20/18. Post completion of abx, would need to have weekly blood cultures for several weeks while maintained on keflex 500 mg PO BID for remainder of his life to ensure that it is sufficient. (2) Cellulitis of right hand: Current visit: No Status: Acute Resolved. No longer on IV vancomycin. (3) CHF (congestive heart failure): Current visit: No Status: Chronic Stable. Continue aspirin, statin, Coreg. Creatinine up today. Decrease Lasix to 20 mg daily and repeat BMP in 4 days. (4) CAD (coronary artery disease): Current visit: No Status: Chronic Stable continue treatment as above. (5) Acute kidney injury superimposed on chronic kidney disease: Current visit: No Status: Acute Creatinine up today, appears to be near baseline. Decrease lasix dose and repeat BMP in 4 days. (6) Diabetes mellitus, type II: Current visit: No Status: Chronic Blood glucose has been elevated, increase long acting insulin to 14 units at HS, continue to monitor blood glucose, adjust insulin as needed. (7) DVT prophylaxis: Current visit: No Status: Acute Subcutaneous heparin. (8) Discharge planning issues: Current visit: No Status: Acute He is a DNR/DNI. This case was discussed with Dr. Mercado who is in agreement. Subjective Interval history since last seen: Mr. Pittman is on swing bed level 1 for treatment of bacteremia. He reports feeling a little sore today related to his increased activity. He has been ambulating frequently inside and outside and using weights. The cellulitis on his right had has resolved. He denies dizziness, shortness of breath, coughing, wheezing, chest pain/pressure, palpitations, he is eating and drinking and tolerating his diet without nausea, vomiting or diarrhea. He is on a bowel regimen, he is moving his bowels regularly. He is getting things arranged for when he is discharged from the hospital. He offers no other concerns. Exam Narrative Exam Narrative: General: Very pleasant elderly male, sitting up in the chair, pleasant and cooperative, in no acute distress. Neurological: A&Ox3, no focal deficits Skin: No suspicious lesions. HEENT: Atraumatic, normocephalic, EOMI, MMM, no JVD Neck: supple, no JVD. Cardiovascular: Heart has regular rate and rhythm, 2/6 systolic ejection murmur noted at left sternal border and apex. Lungs: Respirations even and unlabored, lung sounds clear to auscultation throughout. Gastrointestinal: Normoactive bowel sounds, abdomen is soft, nontender, nondistended Extremities: well perfused, no clubbing, cyanosis or edema. Objective Objective Clinical Data: Abnormal lab results 06/05/18 06/05/18 Range/Units 12:15 12:15 RDW 14.9 H (11.8-14.1) % BUN 31 H (7-18) mg/dL Creatinine 1.76 H (0.70-1.30) mg/dL Glucose 156 H (70-100) mg/dL C-Reactive Protein 0.35 H (0.0-0.3) mg/dL Total Protein 8.6 H (6.4-8.2) g/dL Vital Signs Temperature 36.6 C 06/05/18 07:15 Temperature Source Tympanic 06/05/18 07:15 Pulse 71 06/05/18 07:15 Pulse Rhythm Regular 06/05/18 08:06 Respiratory Rate 16 06/05/18 07:15 Respiratory Effort Non-Labored 06/05/18 08:06 Respiratory Depth Normal 06/05/18 08:06 Respiratory Pattern Normal 06/05/18 08:06 Blood Pressure 168/75 H 06/05/18 07:15 Pulse Oximetry 97 06/05/18 07:15 Oxygen Delivery Method Room Air 06/05/18 07:15 Oxygen Flow Rate 0 06/05/18 07:15 Pain Level 5 06/05/18 07:15 Comment 05/26/18 09:01 Intake & Output 06/04/18 06/05/18 06/05/18 23:59 11:59 23:59 Intake Total 482 / 1192 100.5 / 100.5 Balance 482 / 1192 100.5 / 100.5 Weight 83.6 kg Intake: IV 242 / 342 100.5 / 100.5 Oral 240 / 850 0 / 0 Other: Urine Color Yellow Urine Appearance Clear Clear Urine Odor None Comment VOID X 1 IN TOILET Voiding Methods Toilet Toilet Laboratory Results WBC 9.02 k/cumm (4.4-10.8) 06/05/18 12:15 RBC 4.75 m/cumm (4.50-6.00) 06/05/18 12:15 Hgb 13.9 g/dL (13.5-17.5) 06/05/18 12:15 Hct 42.5 % (40.0-50.0) 06/05/18 12:15 MCV 89.5 fL (80-95) 06/05/18 12:15 MCH 29.3 pg (27.0-33.0) 06/05/18 12:15 MCHC 32.7 g/dL (32.0-36.0) 06/05/18 12:15 RDW 14.9 % (11.8-14.1) H 06/05/18 12:15 Plt Count 257 x1000/uL (130-400) 06/05/18 12:15 MPV 9.2 fL (8.0-11.0) 06/05/18 12:15 Immature Gran % 0.2 06/05/18 12:15 Neutrophils % 63.6 06/05/18 12:15 Lymphocytes % 26.3 06/05/18 12:15 Monocytes % 6.8 06/05/18 12:15 Eosinophils % 2.7 06/05/18 12:15 Basophils % 0.4 06/05/18 12:15 Absolute Neutrophils 5.74 k/cumm (1.2-6.7) 06/05/18 12:15 Absolute Lymphocytes 2.37 k/cumm (1.2-3.4) 06/05/18 12:15 Absolute Monocytes 0.61 k/cumm (0.11-0.7) 06/05/18 12:15 Absolute Eosinophils 0.24 k/cumm (0.0-0.7) 06/05/18 12:15 Absolute Basophils 0.04 k/cumm (0.0-0.2) 06/05/18 12:15 ESR 16 MM/HR (1-20) 06/05/18 12:15 Sodium 142 mmol/L (136-145) 06/05/18 12:15 Potassium 3.9 mmol/L (3.5-5.1) 06/05/18 12:15 Chloride 103 mmol/L (98-107) 06/05/18 12:15 Carbon Dioxide 28.8 mmol/L (21.0-32.0) 06/05/18 12:15 Anion Gap 10.2 mmol/L (3-11) 06/05/18 12:15 BUN 31 mg/dL (7-18) H 06/05/18 12:15 Creatinine 1.76 mg/dL (0.70-1.30) H 06/05/18 12:15 Estimated GFR/1.73 m2 38.15 (mL/min/1.73m2) 06/05/18 12:15 Glucose 156 mg/dL (70-100) H 06/05/18 12:15 Calcium 9.9 mg/dL (8.5-10.1) 06/05/18 12:15 Magnesium 1.9 mg/dL (1.8-2.4) 06/05/18 12:15 Total Bilirubin 0.4 mg/dL (0.2-1.0) 06/05/18 12:15 Conjugated Bilirubin 0.13 mg/dL (0.00-0.20) 05/30/18 06:20 AST 33 U/L (15-37) 06/05/18 12:15 ALT 17 U/L (12-78) 06/05/18 12:15 Alkaline Phosphatase 57 U/L (46-116) 06/05/18 12:15 C-Reactive Protein 0.35 mg/dL (0.0-0.3) H 06/05/18 12:15 Total Protein 8.6 g/dL (6.4-8.2) H 06/05/18 12:15 Albumin 4.3 g/dL (3.4-5.0) 06/05/18 12:15 Stl C.difficile Tox PCR Cancelled 05/18/18 06:40 Vancomycin Trough 17.3 ug/mL (10.0-20.0) 05/18/18 09:00 C.difficile Tox Source Cancelled 05/18/18 06:40
[2018-06-05] MEDS: Acetaminophen 325 MG TAB PO (20:06)
[2018-06-05] MEDS: oxyCODONE 10 MG TAB PO (20:07)
[2018-06-05] MEDS: Pantoprazole 40 MG TABCR PO (20:07)
[2018-06-05] MEDS: Mirtazapine 15 MG TAB PO (20:07)
[2018-06-05] MEDS: Normal Saline 500 ML 30 ML IV (21:08)
[2018-06-05 23:42] VITALS: BP 142/73; PULSE 75; RESP 16; TEMP 36.5; O2SAT 95
[2018-06-06] MEDS: ceFAZolin 2,000 MG in Normal Saline 100 ML 200 MG IVPB ×3 (05:46→21:12)
[2018-06-06] MEDS: Normal Saline Flush 10 ML SYR IVP ×2 (05:46→10:41)
[2018-06-06 07:30] VITALS: BP 156/70; PULSE 71; RESP 20; TEMP 36.4; O2SAT 97
[2018-06-06] MEDS: Fluticasone-Umeclidin-Vilanter [Trelegy Ellipta] IH (07:37)
[2018-06-06] MEDS: Insulin Aspart 300 UNITS/3 ML PEN SC ×3 (08:29→17:11)
[2018-06-06] MEDS: Fluticasone NASAL SPRAY 16 GM BTL NS (08:57)
[2018-06-06] MEDS: Fenofibrate, Micronized 145 MG TAB PO (08:58)
[2018-06-06] MEDS: Aspirin E.C. 81 MG TABEC PO (08:58)
[2018-06-06] MEDS: Atorvastatin 20 MG TAB 60 MG PO (08:58)
[2018-06-06] MEDS: Magnesium Oxide 400 MG TAB PO ×2 (08:58→19:18)
[2018-06-06] MEDS: Docusate Sodium 100 MG CAP PO ×3 (08:58→19:18)
[2018-06-06] MEDS: Senna TAB 1 TAB PO ×2 (08:58→19:18)
[2018-06-06] MEDS: amLODIPine 10 MG TAB PO (08:58)
[2018-06-06] MEDS: CARVEDILOL 12.5 MG TAB PO ×2 (08:58→19:18)
[2018-06-06] MEDS: Furosemide 40 MG TAB 20 MG PO (08:59)
[2018-06-06] MEDS: LORazepam 2 MG/ML VIAL 1 MG IVP (10:41)
[2018-06-06] MEDS: oxyCODONE 10 MG TAB PO ×2 (10:42→19:23)
--- NOTE | 2018-06-06 10:55 | NUR.NOTE ---
Nursing Note: Patient was given pre-medication for the midline insertion, he was again reminded that the effects of the medication could affect his balance, he was asked to ring for assistance with transfers and such at this time, patient agrees to do this , he is left with call lane in reach
[2018-06-06 15:30] VITALS: BP 129/63; PULSE 70; RESP 18; TEMP 36.6; O2SAT 95
[2018-06-06] MEDS: Mirtazapine 15 MG TAB PO (19:18)
[2018-06-06] MEDS: Pantoprazole 40 MG TABCR PO (19:18)
[2018-06-06] MEDS: Acetaminophen 325 MG TAB PO (19:23)
[2018-06-07 03:55] VITALS: BP 150/74; PULSE 68; RESP 16; TEMP 36.8; O2SAT 96
[2018-06-07] MEDS: ceFAZolin 2,000 MG in Normal Saline 100 ML 200 MG IVPB ×3 (05:04→21:09)
[2018-06-07 07:15] VITALS: BP 145/69; PULSE 68; RESP 19; TEMP 36.4; O2SAT 98
[2018-06-07] MEDS: Atorvastatin 20 MG TAB 60 MG PO (08:23)
[2018-06-07] MEDS: Furosemide 40 MG TAB 20 MG PO (08:23)
[2018-06-07] MEDS: amLODIPine 10 MG TAB PO (08:23)
[2018-06-07] MEDS: Magnesium Oxide 400 MG TAB PO ×2 (08:24→19:39)
[2018-06-07] MEDS: Aspirin E.C. 81 MG TABEC PO (08:24)
[2018-06-07] MEDS: Docusate Sodium 100 MG CAP PO ×3 (08:25→19:39)
[2018-06-07] MEDS: CARVEDILOL 12.5 MG TAB PO ×2 (08:25→19:39)
[2018-06-07] MEDS: Senna TAB 1 TAB PO ×2 (08:25→19:39)
[2018-06-07] MEDS: Fenofibrate, Micronized 145 MG TAB PO (08:25)
[2018-06-07] MEDS: Fluticasone NASAL SPRAY 16 GM BTL NS (08:26)
[2018-06-07] MEDS: Fluticasone-Umeclidin-Vilanter [Trelegy Ellipta] IH (08:33)
[2018-06-07] MEDS: Insulin Aspart 300 UNITS/3 ML PEN SC ×2 (12:08→17:13)
[2018-06-07 15:36] VITALS: BP 123/69; PULSE 85; RESP 18; TEMP 37.2; O2SAT 97
[2018-06-07] MEDS: Normal Saline Flush 10 ML SYR IVP (16:42)
[2018-06-07] MEDS: oxyCODONE 10 MG TAB PO (19:39)
[2018-06-07] MEDS: Mirtazapine 15 MG TAB PO (19:39)
[2018-06-07] MEDS: Acetaminophen 325 MG TAB PO (19:39)
[2018-06-07] MEDS: Pantoprazole 40 MG TABCR PO (19:40)
[2018-06-07 23:20] VITALS: BP 131/72; PULSE 79; RESP 18; TEMP 37.2; O2SAT 97
[2018-06-08] MEDS: Aspirin E.C. 81 MG TABEC PO (06:21)
[2018-06-08] MEDS: Fenofibrate, Micronized 145 MG TAB PO (06:21)
[2018-06-08] MEDS: Senna TAB 1 TAB PO ×2 (06:22→19:56)
[2018-06-08] MEDS: Atorvastatin 20 MG TAB 60 MG PO (06:22)
[2018-06-08] MEDS: Magnesium Oxide 400 MG TAB PO ×2 (06:23→19:57)
[2018-06-08] MEDS: amLODIPine 10 MG TAB PO (06:23)
[2018-06-08] MEDS: Furosemide 40 MG TAB 20 MG PO (06:24)
[2018-06-08] MEDS: Fluticasone NASAL SPRAY 16 GM BTL NS (06:25)
[2018-06-08] MEDS: Docusate Sodium 100 MG CAP PO ×3 (06:25→19:56)
[2018-06-08] MEDS: CARVEDILOL 12.5 MG TAB PO ×2 (06:25→19:56)
[2018-06-08] MEDS: ceFAZolin 2,000 MG in Normal Saline 100 ML 200 MG IVPB ×3 (06:25→22:06)
[2018-06-08] MEDS: Insulin Aspart 300 UNITS/3 ML PEN SC ×3 (06:26→17:10)
[2018-06-08] MEDS: Fluticasone-Umeclidin-Vilanter [Trelegy Ellipta] IH (06:26)
[2018-06-08 09:38] VITALS: BP 139/76; PULSE 94; RESP 19; TEMP 36.8; O2SAT 97
[2018-06-08] MEDS: Normal Saline Flush 10 ML SYR IVP ×2 (15:17→22:13)
[2018-06-08 16:04] VITALS: BP 156/75; PULSE 82; RESP 18; TEMP 36.7; O2SAT 97
[2018-06-08] MEDS: Mirtazapine 15 MG TAB PO (19:56)
[2018-06-08] MEDS: Pantoprazole 40 MG TABCR PO (19:56)
[2018-06-08] MEDS: Acetaminophen 325 MG TAB PO (19:57)
[2018-06-08] MEDS: oxyCODONE 10 MG TAB PO (19:58)
[2018-06-09 00:11] VITALS: BP 137/66; PULSE 77; RESP 17; TEMP 36.8; O2SAT 96
[2018-06-09] MEDS: Normal Saline Flush 10 ML SYR IVP ×3 (06:29→23:32)
[2018-06-09] MEDS: ceFAZolin 2,000 MG in Normal Saline 100 ML 200 MG IVPB ×3 (06:30→21:20)
[2018-06-09 07:20] VITALS: BP 162/82; PULSE 72; RESP 16; TEMP 36; O2SAT 98
[2018-06-09] MEDS: Aspirin E.C. 81 MG TABEC PO (07:38)
[2018-06-09] MEDS: Docusate Sodium 100 MG CAP PO ×3 (07:38→19:35)
[2018-06-09] MEDS: Senna TAB 1 TAB PO ×2 (07:38→19:35)
[2018-06-09] MEDS: Magnesium Oxide 400 MG TAB PO ×2 (07:38→19:36)
[2018-06-09] MEDS: amLODIPine 10 MG TAB PO (07:38)
[2018-06-09] MEDS: Atorvastatin 20 MG TAB 60 MG PO (07:38)
[2018-06-09] MEDS: Furosemide 40 MG TAB 20 MG PO (07:38)
[2018-06-09] MEDS: Fenofibrate, Micronized 145 MG TAB PO (07:39)
[2018-06-09] MEDS: CARVEDILOL 12.5 MG TAB PO ×2 (07:39→19:35)
[2018-06-09] MEDS: Fluticasone NASAL SPRAY 16 GM BTL NS (07:39)
[2018-06-09] MEDS: Insulin Aspart 300 UNITS/3 ML PEN SC ×2 (07:45→12:07)
[2018-06-09] MEDS: Fluticasone-Umeclidin-Vilanter [Trelegy Ellipta] IH (08:00)
[2018-06-09 08:51] LABS: Anion Gap 8.1 mmol/L (3-11); BUN 22 mg/dL (7-18); CO2 28.9 mmol/L (21.0-32.0); CREATININE 1.36 mg/dL (0.70-1.30); Calcium 10.2 mg/dL (8.5-10.1); Chloride 105 mmol/L (98-107); Estimated GFR 51.37 (mL/min/1.73m2); Glucose 160 mg/dL (70-100); Sodium 142 mmol/L (136-145)
[2018-06-09] MEDS: Mirtazapine 15 MG TAB PO (19:35)
[2018-06-09] MEDS: Pantoprazole 40 MG TABCR PO (19:35)
[2018-06-09] MEDS: Acetaminophen 325 MG TAB PO (19:35)
[2018-06-09] MEDS: oxyCODONE 10 MG TAB PO (19:35)
[2018-06-09 20:47] VITALS: BP 156/88; PULSE 89; RESP 18; TEMP 36; O2SAT 97
[2018-06-09 23:40] VITALS: BP 136/66; PULSE 80; RESP 16; TEMP 36.3; O2SAT 96
[2018-06-10] MEDS: Normal Saline 500 ML IV (06:16)
[2018-06-10] MEDS: ceFAZolin 2,000 MG in Normal Saline 100 ML 200 MG IVPB ×3 (06:16→22:03)
[2018-06-10] MEDS: Normal Saline Flush 10 ML SYR IVP ×2 (06:17→22:03)
[2018-06-10] MEDS: Fluticasone-Umeclidin-Vilanter [Trelegy Ellipta] IH (07:24)
[2018-06-10 07:35] VITALS: BP 170/76; PULSE 80; RESP 18; TEMP 36.1; O2SAT 99
[2018-06-10] MEDS: Furosemide 40 MG TAB 20 MG PO (08:12)
[2018-06-10] MEDS: amLODIPine 10 MG TAB PO (08:12)
[2018-06-10] MEDS: Fluticasone NASAL SPRAY 16 GM BTL NS (08:12)
[2018-06-10] MEDS: Senna TAB 1 TAB PO ×2 (08:12→20:28)
[2018-06-10] MEDS: Atorvastatin 20 MG TAB 60 MG PO (08:12)
[2018-06-10] MEDS: Magnesium Oxide 400 MG TAB PO ×2 (08:12→20:29)
[2018-06-10] MEDS: CARVEDILOL 12.5 MG TAB PO ×2 (08:13→20:29)
[2018-06-10] MEDS: Insulin Aspart 300 UNITS/3 ML PEN SC ×2 (08:13→12:06)
[2018-06-10] MEDS: Aspirin E.C. 81 MG TABEC PO (08:13)
[2018-06-10] MEDS: Docusate Sodium 100 MG CAP PO ×3 (08:13→20:29)
[2018-06-10] MEDS: Fenofibrate, Micronized 145 MG TAB PO (08:13)
[2018-06-10] MEDS: Acetaminophen 325 MG TAB PO ×2 (14:18→22:03)
[2018-06-10] MEDS: oxyCODONE 10 MG TAB PO ×2 (14:19→22:02)
[2018-06-10 16:25] VITALS: BP 130/70; PULSE 74; RESP 18; TEMP 36; O2SAT 98
[2018-06-10] MEDS: Pantoprazole 40 MG TABCR PO (20:28)
[2018-06-10] MEDS: Mirtazapine 15 MG TAB PO (20:29)
[2018-06-10 23:51] VITALS: BP 122/73; PULSE 77; RESP 18; TEMP 36.2; O2SAT 95
[2018-06-11] MEDS: ceFAZolin 2,000 MG in Normal Saline 100 ML 200 MG IVPB ×3 (05:38→22:04)
[2018-06-11] MEDS: Normal Saline Flush 10 ML SYR IVP ×3 (05:39→22:04)
[2018-06-11] MEDS: Fluticasone-Umeclidin-Vilanter [Trelegy Ellipta] IH (07:29)
[2018-06-11 07:45] VITALS: BP 143/83; PULSE 71; RESP 18; TEMP 36.2; O2SAT 98
[2018-06-11] MEDS: Insulin Aspart 300 UNITS/3 ML PEN SC ×2 (07:54→11:59)
[2018-06-11] MEDS: Fluticasone NASAL SPRAY 16 GM BTL NS (08:00)
[2018-06-11] MEDS: Fenofibrate, Micronized 145 MG TAB PO (08:01)
[2018-06-11] MEDS: Atorvastatin 20 MG TAB 60 MG PO (08:04)
[2018-06-11] MEDS: Magnesium Oxide 400 MG TAB PO ×2 (08:07→19:57)
[2018-06-11] MEDS: amLODIPine 10 MG TAB PO (08:08)
[2018-06-11] MEDS: CARVEDILOL 12.5 MG TAB PO ×2 (08:08→19:57)
[2018-06-11] MEDS: Furosemide 20 MG TAB PO (08:10)
[2018-06-11] MEDS: Senna TAB 1 TAB PO ×2 (08:11→19:58)
[2018-06-11] MEDS: Docusate Sodium 100 MG CAP PO ×3 (08:11→19:57)
[2018-06-11] MEDS: Aspirin E.C. 81 MG TABEC PO (08:12)
[2018-06-11] MEDS: Acetaminophen 325 MG TAB PO ×2 (13:46→19:58)
[2018-06-11 15:20] VITALS: BP 160/82; PULSE 70; RESP 18; TEMP 36.6; O2SAT 97
[2018-06-11] MEDS: Mirtazapine 15 MG TAB PO (19:57)
[2018-06-11] MEDS: Pantoprazole 40 MG TABCR PO (19:57)
[2018-06-11] MEDS: oxyCODONE 10 MG TAB PO (19:58)
[2018-06-11] MEDS: Normal Saline 500 ML IV (22:05)
[2018-06-11 23:05] VITALS: BP 158/82; PULSE 72; RESP 18; TEMP 36.7; O2SAT 97
[2018-06-12] MEDS: ceFAZolin 2,000 MG in Normal Saline 100 ML 200 MG IVPB ×3 (05:49→21:31)
[2018-06-12] MEDS: Normal Saline Flush 10 ML SYR IVP ×3 (05:50→21:30)
[2018-06-12] MEDS: Insulin Aspart 300 UNITS/3 ML PEN SC ×2 (08:04→11:46)
[2018-06-12 08:05] VITALS: BP 171/76; PULSE 75; RESP 19; TEMP 36.6; O2SAT 98
[2018-06-12] MEDS: Fluticasone NASAL SPRAY 16 GM BTL NS (08:05)
[2018-06-12] MEDS: amLODIPine 10 MG TAB PO (08:06)
[2018-06-12] MEDS: Fenofibrate, Micronized 145 MG TAB PO (08:06)
[2018-06-12] MEDS: Magnesium Oxide 400 MG TAB PO ×2 (08:06→20:25)
[2018-06-12] MEDS: Furosemide 20 MG TAB PO (08:06)
[2018-06-12] MEDS: CARVEDILOL 12.5 MG TAB PO ×2 (08:06→20:25)
[2018-06-12] MEDS: Docusate Sodium 100 MG CAP PO ×3 (08:06→20:25)
[2018-06-12] MEDS: Senna TAB 1 TAB PO ×2 (08:06→20:25)
[2018-06-12] MEDS: Atorvastatin 20 MG TAB 60 MG PO (08:06)
[2018-06-12] MEDS: Aspirin E.C. 81 MG TABEC PO (08:06)
[2018-06-12 11:40] VITALS: BP 147/81; PULSE 79
[2018-06-12] MEDS: Acetaminophen 325 MG TAB PO ×2 (13:57→20:26)
[2018-06-12] MEDS: Fluticasone-Umeclidin-Vilanter [Trelegy Ellipta] IH (14:08)
--- NOTE | 2018-06-12 15:24 | W.PM.PROGNOT ---
Date of Service Date of service: 06/12/18 Time of Service: 15:25 Assessment and Plan (1) MSSA bacteremia: Current visit: No Status: Acute Continue IV ancef 2 gram q8hrs last dose on 06/20/18. Post completion of abx, would need to have weekly blood cultures for several weeks while maintained on keflex 500 mg PO BID for remainder of his life to ensure that he is sufficiently covered. (2) Cellulitis of right hand: Current visit: No Status: Acute Resolved. No longer on IV vancomycin. (3) CHF (congestive heart failure): Current visit: No Status: Chronic Stable. Continue aspirin, statin, Coreg. Creatinine improved with decreased Lasix dose. (4) CAD (coronary artery disease): Current visit: No Status: Chronic Stable continue treatment as above. (5) Acute kidney injury superimposed on chronic kidney disease: Current visit: No Status: Acute Creatinine improved with decreased lasix dose. Repeat BMP in one week. (6) Diabetes mellitus, type II: Current visit: No Status: Chronic Blood glucose has been elevated, increase long acting insulin to 16 units at HS, increase to moderate short acting insulin scale. Continue to monitor blood glucose, adjust insulin as needed. (7) DVT prophylaxis: Current visit: No Status: Acute Subcutaneous heparin. (8) Discharge planning issues: Current visit: No Status: Acute He is a DNR/DNI. This case was discussed with Dr. Soto who is in agreement. Subjective Interval history since last seen: Mr. Pittman is on swing bed level 1 for treatment of bacteremia. He reports mild left hip pain he calls sciatic pain. He continues to go out of the hospital every day. He continues to ambulate frequently inside and outside and has been using weights. There is no evidence of cellulitis on his right hand. He denies dizziness, shortness of breath, coughing, wheezing, chest pain/pressure, palpitations, he is eating and drinking and tolerating his diet without nausea, vomiting or diarrhea. He reports an itchy rash to his left AC. He is looking forward to discharge home from the hospital about 1 week. He offers no other concerns. Exam Narrative Exam Narrative: General: Very pleasant elderly male, sitting up in the chair, pleasant and cooperative, in no acute distress. Neurological: A&Ox3, no focal deficits Skin: erythematous, pruritic rash with scattered macular lesions to left AC. HEENT: Atraumatic, normocephalic, EOMI, MMM, no JVD Neck: supple, no JVD. Cardiovascular: Heart has regular rate and rhythm, 2/6 systolic ejection murmur noted at left sternal border and apex. Lungs: Respirations even and unlabored, lung sounds clear to auscultation throughout. Gastrointestinal: Normoactive bowel sounds, abdomen is soft, nontender, nondistended Extremities: well perfused, no clubbing, cyanosis or edema. Objective Objective Clinical Data: Vital Signs Temperature 36.6 C 06/12/18 08:05 Temperature Source Tympanic 06/12/18 08:05 Pulse 79 06/12/18 11:40 Pulse Rhythm Regular 06/12/18 07:50 Respiratory Rate 19 06/12/18 08:05 Respiratory Effort Non-Labored 06/12/18 07:50 Respiratory Depth Normal 06/12/18 07:50 Respiratory Pattern Normal 06/12/18 07:50 Blood Pressure 147/81 H 06/12/18 11:40 Pulse Oximetry 98 06/12/18 08:05 Oxygen Delivery Method Room Air 06/12/18 08:05 Oxygen Flow Rate 0 06/12/18 08:05 Pain Level 6 06/11/18 23:05 Comment 06/07/18 03:55 Intake & Output 06/11/18 06/12/18 06/12/18 23:59 11:59 23:59 Intake Total 721.067 / 1401.067 890 / 1230 340 / 1230 Balance 721.067 / 1401.067 890 / 1230 340 / 1230 Weight 85 kg Intake: IV 241.067 / 441.067 100 / 200 100 / 200 Oral 480 / 960 790 / 1030 240 / 1030 Other: Comment reports voiding without difficulty Pt voids independently. Voiding Methods Toilet Laboratory Results WBC 9.02 k/cumm (4.4-10.8) 06/05/18 12:15 RBC 4.75 m/cumm (4.50-6.00) 06/05/18 12:15 Hgb 13.9 g/dL (13.5-17.5) 06/05/18 12:15 Hct 42.5 % (40.0-50.0) 06/05/18 12:15 MCV 89.5 fL (80-95) 06/05/18 12:15 MCH 29.3 pg (27.0-33.0) 06/05/18 12:15 MCHC 32.7 g/dL (32.0-36.0) 06/05/18 12:15 RDW 14.9 % (11.8-14.1) H 06/05/18 12:15 Plt Count 257 x1000/uL (130-400) 06/05/18 12:15 MPV 9.2 fL (8.0-11.0) 06/05/18 12:15 Immature Gran % 0.2 06/05/18 12:15 Neutrophils % 63.6 06/05/18 12:15 Lymphocytes % 26.3 06/05/18 12:15 Monocytes % 6.8 06/05/18 12:15 Eosinophils % 2.7 06/05/18 12:15 Basophils % 0.4 06/05/18 12:15 Absolute Neutrophils 5.74 k/cumm (1.2-6.7) 06/05/18 12:15 Absolute Lymphocytes 2.37 k/cumm (1.2-3.4) 06/05/18 12:15 Absolute Monocytes 0.61 k/cumm (0.11-0.7) 06/05/18 12:15 Absolute Eosinophils 0.24 k/cumm (0.0-0.7) 06/05/18 12:15 Absolute Basophils 0.04 k/cumm (0.0-0.2) 06/05/18 12:15 ESR 16 MM/HR (1-20) 06/05/18 12:15 Sodium 142 mmol/L (136-145) 06/09/18 08:28 Potassium 4.0 mmol/L (3.5-5.1) 06/09/18 08:28 Chloride 105 mmol/L (98-107) 06/09/18 08:28 Carbon Dioxide 28.9 mmol/L (21.0-32.0) 06/09/18 08:28 Anion Gap 8.1 mmol/L (3-11) 06/09/18 08:28 BUN 22 mg/dL (7-18) H 06/09/18 08:28 Creatinine 1.36 mg/dL (0.70-1.30) H 06/09/18 08:28 Estimated GFR/1.73 m2 51.37 (mL/min/1.73m2) 06/09/18 08:28 Glucose 160 mg/dL (70-100) H 06/09/18 08:28 Calcium 10.2 mg/dL (8.5-10.1) H 06/09/18 08:28 Magnesium 1.9 mg/dL (1.8-2.4) 06/05/18 12:15 Total Bilirubin 0.4 mg/dL (0.2-1.0) 06/05/18 12:15 Conjugated Bilirubin 0.13 mg/dL (0.00-0.20) 05/30/18 06:20 AST 33 U/L (15-37) 06/05/18 12:15 ALT 17 U/L (12-78) 06/05/18 12:15 Alkaline Phosphatase 57 U/L (46-116) 06/05/18 12:15 C-Reactive Protein 0.35 mg/dL (0.0-0.3) H 06/05/18 12:15 Total Protein 8.6 g/dL (6.4-8.2) H 06/05/18 12:15 Albumin 4.3 g/dL (3.4-5.0) 06/05/18 12:15 Stl C.difficile Tox PCR Cancelled 05/18/18 06:40 Vancomycin Trough 17.3 ug/mL (10.0-20.0) 05/18/18 09:00 C.difficile Tox Source Cancelled 05/18/18 06:40
[2018-06-12 16:10] VITALS: BP 140/70; PULSE 76; RESP 14; TEMP 36.4; O2SAT 97
--- NOTE | 2018-06-12 16:14 | PDOC.CMACT ---
- If Service Date Differs Date of service: 06/12/18 Time of Service: 16:14 Care Management Activity Note Care Management Activity Note CM met with Kam and discussed his plans to return home to his apartment. He has a good friend who is going to shop for him next week to resupply the house with essentials so that it is ready for his return. He was pleasant and smiling and reported being excited about his imminent discharge at the end of next week. He especially misses his dog who will be returned to him when he gets settled at home. Kam is requesting information about Life Alert and about the possibility of receiving [employer] for light house keeping. He is also requesting clarification about his definitive discharge date (Saturday vs Saturday) as his family has a long way to travel and needs to know in advance. Kam has been leaving to go get his mail and take care of some personal business during the day. He is fond of doing word searches, reading the paper, watching television and walking in the arenas, engaging with the staff he meets. . P: Kam will remain SB1 for IV antibiotics anticipate end date is 06/20/18. He will continue to receive support through [facility]. [employer] will assist Kam in applying for choices for care moderate needs, Kam would also benefit from meals on wheels at time of discharge and has expressed interest in obtaining a life alert device. cc: RD MCGUIRE DO
[2018-06-12] MEDS: Pantoprazole 40 MG TABCR PO (20:25)
[2018-06-12] MEDS: Mirtazapine 15 MG TAB PO (20:25)
[2018-06-12] MEDS: oxyCODONE 10 MG TAB PO (20:26)
[2018-06-13 00:10] VITALS: BP 144/72; PULSE 76; RESP 16; TEMP 36.2; O2SAT 96
[2018-06-13] MEDS: ceFAZolin 2,000 MG in Normal Saline 100 ML 200 MG IVPB ×3 (06:22→21:55)
[2018-06-13] MEDS: Normal Saline Flush 10 ML SYR IVP ×2 (06:23→14:13)
[2018-06-13 07:58] VITALS: BP 173/76; PULSE 71; RESP 20; TEMP 35.9; O2SAT 96
[2018-06-13] MEDS: Furosemide 20 MG TAB PO (08:07)
[2018-06-13] MEDS: Magnesium Oxide 400 MG TAB PO ×2 (08:07→20:15)
[2018-06-13] MEDS: Atorvastatin 20 MG TAB 60 MG PO (08:07)
[2018-06-13] MEDS: Fenofibrate, Micronized 145 MG TAB PO (08:08)
[2018-06-13] MEDS: Aspirin E.C. 81 MG TABEC PO (08:08)
[2018-06-13] MEDS: Senna TAB 1 TAB PO ×2 (08:08→20:14)
[2018-06-13] MEDS: Fluticasone NASAL SPRAY 16 GM BTL NS (08:08)
[2018-06-13] MEDS: amLODIPine 10 MG TAB PO (08:08)
[2018-06-13] MEDS: CARVEDILOL 12.5 MG TAB PO ×2 (08:08→20:14)
[2018-06-13] MEDS: Docusate Sodium 100 MG CAP PO ×3 (08:08→20:15)
[2018-06-13] MEDS: Acetaminophen 325 MG TAB PO ×2 (08:08→20:14)
[2018-06-13] MEDS: Insulin Aspart 300 UNITS/3 ML PEN SC ×3 (08:09→16:57)
[2018-06-13] MEDS: Fluticasone-Umeclidin-Vilanter [Trelegy Ellipta] IH (08:13)
--- NOTE | 2018-06-13 16:28 | PT.INDS ---
Date of service: 06/10/18 Time of Service: 16:06 PT Notes Inpatient Physical Therapy Discharge Summary Dates: 06/10/2018 Dates of Service: 05/19/18 through 06/10/2018 Referring Doctor: Lazara Soto MD PT Orders: PT CONSULT: Eval and treat Precautions: Fall. Standard. Patient Profile/Admitting Diagnosis: Patient admitted 05/02/18 due to MSSA bacteremia and right hand cellulitis. He transitioned from MedSurg to Swing Bed status on 05/16/2018 for a 6 week course of antibiotics. Referral was received on 05/16/2018 for progression of strength, balance, and activity tolerance under swing bed status. PMHX: DONTAE, HTN, CAD with h/o STEMI 12/2017 and s/p AICD placement; CHF; DM; COPD Social History/Home Situation: Patient lives independently in an apartment in [place]. He has a significant other who is supportive. He is normally independent, and gets around without an assistive device. He admits to balance issues, and had been attending outpatient PT as recently as February 2018 to address this. Equipment Owned/DME: Has FWW but does not use. Subjective: Patient states that he looks forward to ending his antibiotic regimen on the first week of June and states that he is more confident about really going home and returning back to his prior level of function managing at home alone. He looks forward to getting his dog back from [place]. He reports no pain on the right wrist. Objective: General Observation: Patient is seen today on his recliner. No attachments/lines seen. No erythema nor swelling observed on the dorsum of right wrist Mental Status: A&Ox3. Pain: He continues to state that there are positions and activities that continue to trigger the pain on the left gluteal area down to the left posterior thigh to a point where his movement can be limited, although now very infrequently. ROM: Right Upper Extremity: Functional opening and closing of hand seen. Shoulder, elbow, and wrist joints WFL. Left Upper Extremity: Grossly WFL Right Lower Extremity: Grossly WFL Left Lower Extremity: Grossly WFL Strength: Right Upper Extremity: Shoulder flexion 3-/5. Biceps 4-/5.Assistant Counsel is strong and functional. Left Upper Extremity: Shoulder flexion 3-/5. Biceps 4-/5. Right Lower Extremity: Hip flexion 5/5. Quads 5/5. HS 4+/5. Ankle DF 4+/5. Left Lower Extremity: Hip flexion 4+/5. Quads 5/5. HS 4+5. Ankle DF 4+/5. Bed Mobility/Transfers: supine->sit: independent sit->supine: independent sit->stand: Independent stand->sit: Independent Gait: Patient has been independent with level surface ambulation in the [facility] unit without any assistive device. He has been very compliant about his functional maintenance program consisting of ambulation activity 3-5 times a day. He does reports that fatigue can trigger discomfort on the left gluteal area and posterior thigh. Balance: Static Sitting: Normal Dynamic Sitting: Normal Static Standing: Good Dynamic Standing: Good Special Tests: 1. Tinetti/AIDA score of 28/28 signifying low fall risk. 30-second chair rise score of 15 without pain on left hip and posterior thigh. 2. Four stage balance test: Patient was able to maintain all 4 positions for 10 seconds demonstrating improvement static standing balance and signifying low fall risk. 3. Mobility Limitations Standardized Measure [facility] 6 clicks Basic Mobility Inpatient Short Form: Raw Score: 24 CMS Score: 0% deficit Assessment: Patient is a 73 year old male referred to physical therapy services with the diagnosis of MSSA bacteremia and cellulitis of the right hand. He has thus far demonstrated improvement in mobility levels as demonstrated above under bed mobility/transfer levels. He continues to require skilled PT intervention to maximize safety and mobility with plan to discharge to an home alone at the conclusion of antibiotic treatment. Goals: Goals X1 week 1. Patient will independently negotiate a flight of stairs without an assistive device with no report of increased pain on gluteal area/posterior thigh or dyspnea--MET 2. Patient will be able to assume tandem stance on both legs and one leg at stance for 10 seconds each in order to reduce fall risk --MET 3. Patient will demonstrate gait speed of at least 1.5 m/s in order to facilitate return to community ambulation --MET 4. Patient will demonstrate 100% mastery of room exercises as part of his functional maintenance program --MET 5. Patient will perform 30-second chair rice score of 15 without complaints of pain on gluteal area/posterior thigh nor dyspnea --MET DISCHARGE RECOMMENDATIONS: Patient may benefit from a short-term home health services at discharge destination in order to facilitate a smooth transition to home, evaluate home safety, and establish/implement/continue a functional maintenance program to maintain and achieve gains in therapy. TREATMENT CODE/TIME: 96147 24 minutes beginning at 16:06 PM. Thank you for this referral. Bridget Cochran, PT, DPT, CLT [facility]
[2018-06-13] MEDS: Mirtazapine 15 MG TAB PO (20:14)
[2018-06-13] MEDS: oxyCODONE 10 MG TAB PO (20:14)
[2018-06-13] MEDS: Pantoprazole 40 MG TABCR PO (20:15)
[2018-06-13] MEDS: Normal Saline 500 ML IV (22:02)
[2018-06-13 23:15] VITALS: BP 124/81; PULSE 67; RESP 24; TEMP 36.3; O2SAT 97
[2018-06-14 00:56] VITALS: BP 165/79; PULSE 72; RESP 17; TEMP 36.8; O2SAT 97
[2018-06-14] MEDS: ceFAZolin 2,000 MG in Normal Saline 100 ML 200 MG IVPB ×3 (05:55→21:34)
[2018-06-14] MEDS: Normal Saline Flush 10 ML SYR IVP ×3 (05:56→21:34)
[2018-06-14] MEDS: Fluticasone-Umeclidin-Vilanter [Trelegy Ellipta] IH (07:37)
[2018-06-14 07:57] VITALS: BP 149/85; PULSE 64; RESP 18; TEMP 37.2; O2SAT 96
[2018-06-14] MEDS: Fluticasone NASAL SPRAY 16 GM BTL NS (08:23)
[2018-06-14] MEDS: Insulin Aspart 300 UNITS/3 ML PEN SC ×2 (08:23→11:54)
[2018-06-14] MEDS: Senna TAB 1 TAB PO ×2 (08:24→19:22)
[2018-06-14] MEDS: Aspirin E.C. 81 MG TABEC PO (08:24)
[2018-06-14] MEDS: Acetaminophen 325 MG TAB PO ×2 (08:24→19:23)
[2018-06-14] MEDS: CARVEDILOL 12.5 MG TAB PO ×2 (08:24→19:23)
[2018-06-14] MEDS: Atorvastatin 20 MG TAB 60 MG PO (08:24)
[2018-06-14] MEDS: Fenofibrate, Micronized 145 MG TAB PO (08:24)
[2018-06-14] MEDS: amLODIPine 10 MG TAB PO (08:25)
[2018-06-14] MEDS: Magnesium Oxide 400 MG TAB PO ×2 (08:25→19:23)
[2018-06-14] MEDS: Docusate Sodium 100 MG CAP PO ×3 (08:25→19:22)
[2018-06-14] MEDS: Furosemide 20 MG TAB PO (08:25)
[2018-06-14 16:40] VITALS: BP 168/79; PULSE 83; RESP 14; TEMP 36.4; O2SAT 98
[2018-06-14] MEDS: oxyCODONE 10 MG TAB PO (19:22)
[2018-06-14] MEDS: Mirtazapine 15 MG TAB PO (19:23)
[2018-06-14] MEDS: Pantoprazole 40 MG TABCR PO (19:24)
[2018-06-14 19:47] VITALS: BP 133/69; PULSE 83; RESP 18; TEMP 36.3; O2SAT 96
[2018-06-14 23:15] VITALS: BP 130/66; PULSE 74; RESP 18; TEMP 36.4; O2SAT 95
[2018-06-15] MEDS: ceFAZolin 2,000 MG in Normal Saline 100 ML 200 MG IVPB ×3 (06:17→22:13)
[2018-06-15] MEDS: Normal Saline Flush 10 ML SYR IVP ×2 (06:17→22:13)
[2018-06-15] MEDS: Normal Saline 500 ML IV (06:18)
[2018-06-15] MEDS: oxyCODONE 10 MG TAB PO ×3 (06:20→19:58)
[2018-06-15 07:20] VITALS: BP 153/70; PULSE 75; RESP 18; TEMP 37; O2SAT 95
[2018-06-15] MEDS: Fluticasone-Umeclidin-Vilanter [Trelegy Ellipta] IH (07:27)
[2018-06-15] MEDS: Furosemide 20 MG TAB PO (08:02)
[2018-06-15] MEDS: Docusate Sodium 100 MG CAP PO ×3 (08:02→19:58)
[2018-06-15] MEDS: Aspirin E.C. 81 MG TABEC PO (08:02)
[2018-06-15] MEDS: Atorvastatin 20 MG TAB 60 MG PO (08:02)
[2018-06-15] MEDS: Acetaminophen 325 MG TAB PO ×3 (08:03→19:58)
[2018-06-15] MEDS: Fenofibrate, Micronized 145 MG TAB PO (08:03)
[2018-06-15] MEDS: amLODIPine 10 MG TAB PO (08:03)
[2018-06-15] MEDS: Insulin Aspart 300 UNITS/3 ML PEN SC ×2 (08:03→11:53)
[2018-06-15] MEDS: Fluticasone NASAL SPRAY 16 GM BTL NS (08:03)
[2018-06-15] MEDS: CARVEDILOL 12.5 MG TAB PO ×2 (08:03→19:58)
[2018-06-15] MEDS: Magnesium Oxide 400 MG TAB PO ×2 (08:03→19:58)
[2018-06-15] MEDS: Senna TAB 1 TAB PO ×2 (08:03→19:58)
[2018-06-15 15:49] VITALS: BP 158/76; PULSE 67; RESP 17; TEMP 36.2; O2SAT 97
[2018-06-15] MEDS: Pantoprazole 40 MG TABCR PO (19:58)
[2018-06-15] MEDS: Mirtazapine 15 MG TAB PO (19:59)
[2018-06-15 23:07] VITALS: BP 137/77; PULSE 69; RESP 17; TEMP 36.6; O2SAT 94
[2018-06-16] MEDS: ceFAZolin 2,000 MG in Normal Saline 100 ML 200 MG IVPB ×3 (06:00→21:19)
[2018-06-16] MEDS: Normal Saline Flush 10 ML SYR IVP ×2 (06:01→14:21)
[2018-06-16 07:20] VITALS: BP 155/75; PULSE 72; RESP 16; TEMP 36.7; O2SAT 96
[2018-06-16] MEDS: Fluticasone-Umeclidin-Vilanter [Trelegy Ellipta] IH (07:51)
[2018-06-16] MEDS: Insulin Aspart 300 UNITS/3 ML PEN SC ×3 (07:51→16:58)
[2018-06-16] MEDS: Fluticasone NASAL SPRAY 16 GM BTL NS (07:51)
[2018-06-16] MEDS: Atorvastatin 20 MG TAB 60 MG PO (07:52)
[2018-06-16] MEDS: Docusate Sodium 100 MG CAP PO ×3 (07:52→19:21)
[2018-06-16] MEDS: Fenofibrate, Micronized 145 MG TAB PO (07:52)
[2018-06-16] MEDS: amLODIPine 10 MG TAB PO (07:52)
[2018-06-16] MEDS: Magnesium Oxide 400 MG TAB PO ×2 (07:52→19:21)
[2018-06-16] MEDS: CARVEDILOL 12.5 MG TAB PO ×2 (07:53→19:22)
[2018-06-16] MEDS: Aspirin E.C. 81 MG TABEC PO (07:53)
[2018-06-16] MEDS: Furosemide 20 MG TAB PO (07:53)
[2018-06-16] MEDS: Senna TAB 1 TAB PO ×2 (07:57→19:22)
[2018-06-16 15:45] VITALS: BP 142/75; PULSE 78; RESP 16; TEMP 36.7; O2SAT 95
[2018-06-16] MEDS: Acetaminophen 325 MG TAB PO (19:21)
[2018-06-16] MEDS: Mirtazapine 15 MG TAB PO (19:21)
[2018-06-16] MEDS: Pantoprazole 40 MG TABCR PO (19:21)
[2018-06-16] MEDS: oxyCODONE 10 MG TAB PO (19:22)
[2018-06-17 01:11] VITALS: BP 140/72; PULSE 70; RESP 12; TEMP 36.7; O2SAT 96
[2018-06-17] MEDS: ceFAZolin 2,000 MG in Normal Saline 100 ML 200 MG IVPB ×3 (06:08→21:43)
[2018-06-17] MEDS: Fluticasone-Umeclidin-Vilanter [Trelegy Ellipta] IH (07:59)
[2018-06-17] MEDS: Senna TAB 1 TAB PO ×2 (08:00→19:47)
[2018-06-17] MEDS: Furosemide 20 MG TAB PO (08:00)
[2018-06-17] MEDS: Aspirin E.C. 81 MG TABEC PO (08:00)
[2018-06-17] MEDS: Fluticasone NASAL SPRAY 16 GM BTL NS (08:00)
[2018-06-17] MEDS: Docusate Sodium 100 MG CAP PO ×3 (08:00→19:46)
[2018-06-17] MEDS: Fenofibrate, Micronized 145 MG TAB PO (08:00)
[2018-06-17] MEDS: amLODIPine 10 MG TAB PO (08:00)
[2018-06-17] MEDS: CARVEDILOL 12.5 MG TAB PO ×2 (08:00→19:46)
[2018-06-17] MEDS: Magnesium Oxide 400 MG TAB PO ×2 (08:00→19:46)
[2018-06-17] MEDS: Atorvastatin 20 MG TAB 60 MG PO (08:00)
[2018-06-17] MEDS: Insulin Aspart 300 UNITS/3 ML PEN SC ×3 (08:01→16:56)
[2018-06-17 08:08] VITALS: BP 167/85; PULSE 73; RESP 16; TEMP 36.8; O2SAT 97
[2018-06-17 16:49] VITALS: BP 177/78; PULSE 82; RESP 18; TEMP 36.7; O2SAT 95
[2018-06-17 19:30] VITALS: BP 155/75
[2018-06-17] MEDS: Mirtazapine 15 MG TAB PO (19:46)
[2018-06-17] MEDS: Pantoprazole 40 MG TABCR PO (19:46)
[2018-06-17] MEDS: Acetaminophen 325 MG TAB PO (19:47)
[2018-06-17] MEDS: oxyCODONE 10 MG TAB PO (19:47)
[2018-06-17 23:22] VITALS: BP 119/59; PULSE 76; RESP 18; TEMP 36.3; O2SAT 96
[2018-06-18] MEDS: ceFAZolin 2,000 MG in Normal Saline 100 ML 200 MG IVPB ×3 (05:52→21:30)
[2018-06-18] MEDS: Normal Saline Flush 10 ML SYR IVP ×3 (05:52→21:31)
[2018-06-18 07:29] VITALS: BP 169/78; PULSE 77; RESP 18; TEMP 36.8; O2SAT 97
[2018-06-18] MEDS: Fluticasone-Umeclidin-Vilanter [Trelegy Ellipta] IH (07:31)
[2018-06-18] MEDS: Atorvastatin 20 MG TAB 60 MG PO (07:59)
[2018-06-18] MEDS: Furosemide 20 MG TAB PO (07:59)
[2018-06-18] MEDS: Magnesium Oxide 400 MG TAB PO ×2 (08:00→19:16)
[2018-06-18] MEDS: Docusate Sodium 100 MG CAP PO ×3 (08:00→19:16)
[2018-06-18] MEDS: CARVEDILOL 12.5 MG TAB PO ×2 (08:00→19:16)
[2018-06-18] MEDS: amLODIPine 10 MG TAB PO (08:00)
[2018-06-18] MEDS: Aspirin E.C. 81 MG TABEC PO (08:00)
[2018-06-18] MEDS: Insulin Aspart 300 UNITS/3 ML PEN SC ×3 (08:00→16:49)
[2018-06-18] MEDS: Senna TAB 1 TAB PO ×2 (08:00→19:16)
[2018-06-18] MEDS: Acetaminophen 325 MG TAB PO ×2 (08:00→19:16)
[2018-06-18] MEDS: Fenofibrate, Micronized 145 MG TAB PO (08:00)
[2018-06-18] MEDS: Fluticasone NASAL SPRAY 16 GM BTL NS (08:01)
--- NOTE | 2018-06-18 08:44 | NUR.NOTE ---
Nursing Note: Pt declined hydrocortisone cream to left AC this morning, stating the rash is better, I don't need it anymore. Laura Woods notified.
[2018-06-18 16:40] VITALS: BP 163/76; PULSE 89; RESP 20; TEMP 37.2; O2SAT 97
[2018-06-18] MEDS: oxyCODONE 10 MG TAB PO (19:16)
[2018-06-18] MEDS: Mirtazapine 15 MG TAB PO (19:16)
[2018-06-18] MEDS: Pantoprazole 40 MG TABCR PO (19:16)
[2018-06-18 20:07] VITALS: BP 121/69; PULSE 80; RESP 18; TEMP 37.1; O2SAT 97
[2018-06-18] MEDS: Normal Saline 500 ML IV (21:31)
[2018-06-19 00:22] LABS: HCT 37.1 % (40.0-50.0); Mean Corp. HGB Concentration 32.3 g/dL (32.0-36.0); Mean Corpuscular Hemoglobin 29.3 pg (27.0-33.0); Mean Corpuscular Volume 90.5 fL (80-95); Mean Platelet Volume 9.1 fL (8.0-11.0); Platelet Count 221 x1000/uL (130-400); RBC Distribution Width 14.2 % (11.8-14.1); White Blood Cell Count 8.23 k/cumm (4.4-10.8)
[2018-06-19 00:29] LABS: Anion Gap 10.4 mmol/L (3-11); BUN 26 mg/dL (7-18); CO2 26.6 mmol/L (21.0-32.0); CREATININE 1.25 mg/dL (0.70-1.30); Calcium 9.6 mg/dL (8.5-10.1); Chloride 106 mmol/L (98-107); Estimated GFR 56.62 (mL/min/1.73m2); Glucose 140 mg/dL (70-100); Potassium 3.6 mmol/L (3.5-5.1); Sodium 143 mmol/L (136-145)
[2018-06-19] MEDS: Normal Saline Flush 10 ML SYR IVP ×3 (05:35→21:26)
[2018-06-19] MEDS: ceFAZolin 2,000 MG in Normal Saline 100 ML 200 MG IVPB ×3 (05:35→21:26)
[2018-06-19 07:30] VITALS: BP 170/73; PULSE 74; RESP 18; TEMP 36.6; O2SAT 98
[2018-06-19] MEDS: Fluticasone-Umeclidin-Vilanter [Trelegy Ellipta] IH (07:57)
[2018-06-19] MEDS: Fluticasone NASAL SPRAY 16 GM BTL NS (08:02)
[2018-06-19] MEDS: Magnesium Oxide 400 MG TAB PO ×3 (08:03→20:15)
[2018-06-19] MEDS: Atorvastatin 20 MG TAB 60 MG PO (08:03)
[2018-06-19] MEDS: Docusate Sodium 100 MG CAP PO ×3 (08:03→20:15)
[2018-06-19] MEDS: Fenofibrate, Micronized 145 MG TAB PO (08:03)
[2018-06-19] MEDS: Furosemide 20 MG TAB PO (08:03)
[2018-06-19] MEDS: Senna TAB 1 TAB PO ×2 (08:04→20:15)
[2018-06-19] MEDS: Aspirin E.C. 81 MG TABEC PO (08:04)
[2018-06-19] MEDS: amLODIPine 10 MG TAB PO (08:04)
[2018-06-19] MEDS: CARVEDILOL 12.5 MG TAB PO ×2 (08:04→20:15)
[2018-06-19] MEDS: Potassium Chloride 20 MEQ TABCR 40 MEQ PO (08:11)
[2018-06-19 08:30] LABS: ALT 18 U/L (12-78); AST 22 U/L (15-37); Albumin 4.1 g/dL (3.4-5.0); Alkaline Phosphatase 49 U/L (46-116); Bilirubin, Direct 0.14 mg/dL (0.00-0.20); Bilirubin, Total 0.4 mg/dL (0.2-1.0); C-Reactive Protein 0.29 mg/dL (0.0-0.3); Total Protein 7.8 g/dL (6.4-8.2)
[2018-06-19 09:11] LABS: ESR 11 MM/HR (1-20)
[2018-06-19] MEDS: Insulin Aspart 300 UNITS/3 ML PEN SC (11:48)
--- NOTE | 2018-06-19 11:50 | PDOC.CMACT ---
- If Service Date Differs Date of service: 06/19/18 Time of Service: 11:50 Care Management Activity Note Kam was sitting up in the chair watching television during CM visit. He voiced excitement about his impending discharge tomorrow. Dr. Mercado has determined that he can be discharged after his 6 am dose of Vancomycin and this was communicated to him. He states that will make his discharge much smoother as he will be able to drive himself home. Kam was provided with information about an inexpensive life alert product as requested. He has discovered that most devices require the presence of a land line which he no longer has, so he is evaluating various options. Radha Arcos from [facility] met with Kam on Saturday and will make a home visit next week.They have already begun discussions about various life alert systems and she will provide him with additional information. 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 P: Kam will receive his last dose of antibiotic tomorrow morning and then will be discharged. He will drive himself home. He will follow up with his PCP and Infectious Disease specialist. He will be given a prescription for Keflex that he will need to take for the rest of his life.
--- NOTE | 2018-06-19 12:02 | CMACTNOTE_ITS ---
- If Service Date Differs Date of service: 06/19/18 Time of Service: 11:50 Care Management Activity Note Kam was sitting up in the chair watching television during CM visit. He voiced excitement about his impending discharge tomorrow. Dr. Mercado has determined that he can be discharged after his 6 am dose of Vancomycin and this was communicated to him. He states that will make his discharge much smoother as he will be able to drive himself home. Kam was provided with information about an inexpensive life alert product as requested. He has discovered that most devices require the presence of a land line which he no longer has, so he is evaluating various options. Radha Arcos from [facility] met with Kam on Saturday and will make a home visit next week.They have already begun discussions about various life alert systems and she will provide him with additional information. 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 P: Kam will receive his last dose of antibiotic tomorrow morning and then will be discharged. He will drive himself home. He will follow up with his PCP and Infectious Disease specialist. He will be given a prescription for Keflex that he will need to take for the rest of his life.
--- NOTE | 2018-06-19 14:54 | W.PM.DS.N ---
Date of service: 06/19/18 Time of Service: 14:55 DS: Diagnosis Discharge Diagnosis (1) MSSA bacteremia: Status: Acute (2) Cellulitis of right hand: Status: Acute (3) CHF (congestive heart failure): Status: Chronic (4) CAD (coronary artery disease): Status: Chronic (5) Acute kidney injury superimposed on chronic kidney disease: Status: Acute (6) Diabetes mellitus, type II: Status: Chronic Discharge Plan Discharge Details Reason For Visit: MSSA BACTERMIA Admit Date/Time: 05/16/18 19:36 Admit Provider: Lazara Soto Attending Provider: Lazara Soto Primary Care Provider: Tien Galicia Home Meds and New Rx's Prescriptions: No Action melatonin 3 mg tablet 9 mg PO HS RF: 0 atorvastatin 20 mg tablet 60 mg PO DAILY RF: 0 nitroglycerin [Nitrostat] 0.4 mg tablet, sublingual 0.4 mg SL PRN RF: 0 magnesium oxide 400 mg capsule 400 mg PO BID RF: 0 potassium chloride [Klor-Con 10] 10 mEq tablet extended release 10 meq PO DAILY RF: 0 colchicine 0.6 mg tablet 0.6 mg PO BID PRN (Reason: gout attack) Qty: 30 RF: 3 pregabalin 200 mg capsule 400 mg PO BID Qty: 360 RF: 3 carvedilol 12.5 mg tablet 12.5 mg PO BID RF: 0 Trelegy Ellipta 100-62.5-25 mcg blister with device 1 inh IH DAILY RF: 0 oxycodone 10 mg tablet 10 mg PO Q4H MDD 40 mg PRN (Reason: pain) Qty: 56 RF: 0 oxycodone 10 mg tablet 10 mg PO .Q4 MDD 40 mg PRN (Reason: pain) Qty: 56 RF: 0 aspirin 81 MG tablet,delayed release (DR/EC) 81 mg PO DAILY RF: 0 KENALOG 0.1% CREAM 454 GM CR 1 melinda Topical PRN Qty: 1 RF: 11 Devilbiss Disposable Nebulizer 1 EACH misc 1 ea Miscellaneous QID PRNQty: 1 RF: 0 blood-glucose meter 1 EACH misc 1 ea Miscellaneous BID Qty: 1 RF: 0 pen needle, diabetic [BD Ultra-Fine Rebecca Pen Needle] 1 EACH needle 1 ea Miscellaneous DAILY 30 Days Qty: 1 RF: 6 lancets 1 EACH misc 1 ea Miscellaneous BID Qty: 200 RF: 3 lancing device with lancets 1 EACH kit 1 ea Miscellaneous DAILY PRNQty: 1 RF: 0 Blood Glucose Test 1 EACH strip 1 ea Miscellaneous TID Qty: 200 RF: 6 cyclobenzaprine 10 MG tablet 10 mg PO BID PRN30 Days Qty: 270 RF: 3 albuterol sulfate [ProAir HFA] 8.5 GM HFA aerosol inhaler 2 puff Inhalation Q2H PRNQty: 3 RF: 6 triamcinolone acetonide 15 GM cream 1 melinda Topical TID 90 Days Qty: 1 RF: 11 fluticasone propionate [Flonase Allergy Relief] 9.9 ML spray,suspension 2 spry NS DAILY Qty: 1 RF: 6 amlodipine 10 MG tablet 10 mg PO DAILY Qty: 90 RF: 3 fenofibrate 150 mg capsule 145 mg PO DAILY RF: 0 acetaminophen [Acetaminophen Extra Strength] 500 MG tablet 1,000 mg PO BID PRN PRNRF: 0 acetaminophen [Tylenol] 325 mg Tablet 325 mg PO Q4H PRNRF: 0 Levemir FlexTouch U-100 Insuln 100 unit/mL (3 mL) insulin pen 10 unit subcut QHS RF: 0 albuterol sulfate 1.25 MG/3 ML solution for nebulization 2.5 mg Inhalation QID RF: 0 furosemide 40 mg Tablet 40 mg PO DAILY Qty: 0 RF: 0 cefazolin 1 gram Recon Soln 2,000 mg IVPB Q8H Qty: 0 RF: 0 sennosides [Senokot] 8.6 mg Tablet 1 tab PO BID Qty: 0 RF: 0 ipratropium-albuterol 0.5 mg-3 mg(2.5 mg base)/3 mL Solution For Nebulization 3 ml UPD Q6H PRN PRNQty: 0 RF: 0 albuterol sulfate 2.5 mg /3 mL (0.083 %) Solution For Nebulization 2.5 mg UPD Q2H PRN PRNQty: 0 RF: 0 polyethylene glycol 3350 17 gram Powder In Packet 17 g PO DAILY PRN PRN (Reason: Constipation) Qty: 0 RF: 0 pantoprazole [Protonix] 40 mg Recon Soln 40 mg IVP Q24H Qty: 0 RF: 0 docusate sodium [Colace] 100 mg Capsule 100 mg PO TID Qty: 0 RF: 0 mirtazapine [Remeron] 15 mg Tablet 15 mg PO QPM Qty: 0 RF: 0 alum-mag hydroxide-simeth [Mag-Al Plus] 200-200-20 mg/5 mL Suspension 30 ml PO Q2H PRN PRNQty: 0 RF: 0 heparin (porcine) 5,000 unit/mL Solution 5,000 units subcut Q8H Qty: 0 RF: 0 Novolog Flexpen U-100 Insulin 100 unit/mL Insulin Pen subcut 0800,1200,1700 Qty: 0 RF: 0 vancomycin in dextrose 5 % 1 gram/200 mL Piggyback 1 g IVPB Q16H Qty: 0 RF: 0 ondansetron HCl (PF) 4 mg/2 mL Solution 4 mg IVP Q4H PRN PRNQty: 0 RF: 0 Discharge Instructions Stand Alone Forms: Nursing Discharge Form Referrals: Tien Galicia DO [Primary Care Provider] - DS: Data Vitals/I&O Vitals and I&O: Vital Signs Temperature 36.6 C 06/19/18 07:30 Temperature Source Tympanic 06/19/18 07:30 Pulse 74 06/19/18 07:30 Pulse Rhythm Regular 06/19/18 08:30 Respiratory Rate 18 06/19/18 07:30 Respiratory Effort Non-Labored 06/19/18 08:30 Respiratory Depth Normal 06/19/18 08:30 Respiratory Pattern Normal 06/19/18 08:30 Blood Pressure 170/73 H 06/19/18 07:30 Pulse Oximetry 98 06/19/18 07:30 Oxygen Delivery Method Room Air 06/19/18 07:30 Oxygen Flow Rate 0 06/19/18 07:30 Pain Level 8 06/19/18 07:30 Comment 06/15/18 07:20 Intake & Output 06/18/18 06/19/18 06/19/18 23:59 11:59 23:59 Intake Total 777.217 / 1487.217 460 / 820 360 / 820 Balance 777.217 / 1487.217 460 / 820 360 / 820 Weight 85.1 kg Intake: IV 297.217 / 397.217 100 / 100 Oral 480 / 1090 360 / 720 360 / 720 Other: Urine Color Pale Pale Yellow Yellow Urine Appearance Clear Clear Urine Odor None None Comment urines in the tiolet pt voided in the tiolet Voiding Methods Toilet Toilet Labs on day of discharge: Labs from last 24 hours 06/19/18 06/19/18 06/19/18 08:10 08:10 00:10 WBC 8.23 RBC 4.10 L Hgb 12.0 L Hct 37.1 L MCV 90.5 MCH 29.3 MCHC 32.3 RDW 14.2 H Plt Count 221 MPV 9.1 ESR 11 Sodium Potassium Chloride Carbon Dioxide Anion Gap BUN Creatinine Estimated GFR/1.73 m2 Glucose Calcium Total Bilirubin 0.4 Conjugated Bilirubin 0.14 AST 22 ALT 18 Alkaline Phosphatase 49 C-Reactive Protein 0.29 Total Protein 7.8 Albumin 4.1 06/19/18 00:10 WBC RBC Hgb Hct MCV MCH MCHC RDW Plt Count MPV ESR Sodium 143 Potassium 3.6 Chloride 106 Carbon Dioxide 26.6 Anion Gap 10.4 BUN 26 H Creatinine 1.25 Estimated GFR/1.73 m2 56.62 Glucose 140 H Calcium 9.6 Total Bilirubin Conjugated Bilirubin AST ALT Alkaline Phosphatase C-Reactive Protein Total Protein Albumin [facility] Medical History Palliative care patient (Chronic) Cellulitis of right hand (Acute) MSSA bacteremia (Acute) STEMI (ST elevation myocardial infarction) (Chronic) Sleep apnea (Chronic 12/28/15) Sciatica of left side (Chronic 03/26/16) Primary osteoarthritis involving multiple joints (Chronic 01/04/16) Pain in lower limb (Chronic 02/18/89) Nonallergic rhinitis (Resolved 01/28/15) Leg pain, left (Chronic 01/17/16) Left lumbar radiculopathy (Chronic 10/26/16) Hypertriglyceridemia (Chronic 12/31/14) Dyspnea on exertion (Chronic 09/20/15) Distal paresthesia (Chronic 02/16/14) DM w/o complication type II, uncontrolled (Chronic 11/12/13) DM neuro manif type II (Chronic) Chronic pain disorder (Chronic 10/26/16) Chronic obstructive pulmonary disease (Chronic 01/21/17) Adjustment disorder, unspecified (Resolved 09/03/16) Acute gastroenteritis (Resolved) Aortic stenosis (Resolved) Discharge planning issues (Resolved) Lumbar back pain with radiculopathy affecting left lower extremity (Chronic) Neuropathy, lateral femoral cutaneous nerve (Chronic) Influenza with respiratory manifestations (Resolved 04/16/14) Diabetes mellitus, type II (Chronic) Hypertension (Chronic) Hyperlipidemia (Chronic) Obesity (Chronic) Peripheral neuropathy (Chronic) Weakness (Chronic 04/16/14) s/p respiratory failure (Chronic 04/16/14) s/p mechanical ventilation (Chronic 04/16/14) Encounter for physical therapy (Chronic 04/16/14) Surgical History H/O surgical procedure (Chronic) Biopsy Skin of left denominational (12/10/14) Central line for TPN (03/31/14) Family History Mother Stroke Father No problems noted. Brother No problems noted. Social History Smoking/Tobacco Use Status: Current-Occasional Tobacco Type: cigarettes and cigars Tobacco: How many years used: 60 Quit status: considering quitting Counseling given: counseling >3 minutes Alcohol Intake: former Drug use: Never Substance use type: does not use Caregiver/Support person: No Household members: none Housing: apartment Number of Children: 0 Communication Needs: Corrective Lenses Education Level: high school Do you need help understanding health information?: Often Pets and animals: Yes Pets and animals: dog(s) What is your relationship status?: never How often do you talk on the phone with friends or family?: twice per week How often do you get together with friends or relatives?: once per week Panel score (0-1 are the most socially isolated patients): 1 What type of physical activity do you participate in: bicycling and other Details: stationary bike Duration: 15-30 minutes/day Frequency: 5-6 times per week Agree to transfusion: Yes Seatbelt use: always Drive intox or ride w/intox lokie driver: No Water heater temp set <120 deg: Yes Working smoke detector in home: Yes Fire extinguisher in home: Yes Carbon monox detector in home: Yes Do you feel safe at home: Yes Do you feel safe in your relationship?: Yes
[2018-06-19 15:48] VITALS: BP 165/87; PULSE 89; RESP 18; TEMP 36.8; O2SAT 98
--- NOTE | 2018-06-19 16:42 | W.PM.DS.N ---
Date of service: 06/20/18 Time of Service: 10:00 DS: Diagnosis Discharge Diagnosis (1) MSSA bacteremia: Status: Acute (2) Cellulitis of right hand: Status: Acute (3) CHF (congestive heart failure): Status: Chronic (4) CAD (coronary artery disease): Status: Chronic (5) Acute kidney injury superimposed on chronic kidney disease: Status: Acute (6) Diabetes mellitus, type II: Status: Chronic Discharge Plan Disposition Patient Disposition: HOME Condition: Stable Discharge Details Reason For Visit: MSSA BACTERMIA Admit Date/Time: 05/16/18 19:36 Admit Provider: Lazara Soto Attending Provider: Lazara Soto Primary Care Provider: Tien Galicia [facility] Course Hospital Course: Chief Complaint: Bacteremia HPI: 73 year old man with a prior history of CHF and CAD, originally admitted from [facility] Emergency Department on 05/02 with a diagnosis of hypotension and DONTAE. He became septic during his hospitalization, with MSSA Bacteremia secondary to a right hand source, stabilized on antibiotic therapy. The patient was then discharged to Swing Bed Status on 05/16 - 06/20/2018, and is scheduled for discharged today. Mr. Pittman has a past medical history significant for CAD, with a cardiac arrest 12/2017 due to an RI, for which he was treated at [facility] with cardiac catheterization. He also is s/p AICD, with a history of CHF with LVEF of reportedly 40% on Echocardiogram at [facility], but with normalized Ejection Fraction by repeat ECHO here without wall motion abnormalities. The patient also has a history of , with note of a bioprosthetic valve by his current ECHO, DM with peripheral neuropathy, ANNABELLE, dyslipidemia, HTN, CKD, chronic pain, and COPD. Other history includes ARDS in setting of infection with influenza at which time he required intubation and mechanical ventilation at [facility]. The patient presented to the ED with the sensation that he was going to have recurrent myocardial infarction. He denied chest pain, but reported dizziness and feeling unwell overall. Following transport to the hospital via EMS he was noted to be significantly hypotensive, with a SBP in the 70s and 80s prior to receiving IV Fluids. His serial troponins were negative and EKG reportedly unchanged. The patient was found to have evidence of DONTAE, found likely in the setting of overdiuresis, hypotension, and dehydration. The patient's original symptoms had essentially abated, his creatinine remained at baseline, and his blood pressure had become hypertensive. However, he went on to develop nausea, vomiting, and dizzeness. Subsequently Mr. Pittman became febrile and experienced rigors. Lactate was checked and elevated. Subsequent work-up including flu swab, CXR, Urinalysis, and CT of the abdomen and pelvis were all negative. Blood Cultures were obtained and returned positive for Staph Aureus, MSSA by sensitivity. Only sources appears to be at the IV site he received in the field by EMS on his right hand, which was minimally erythematous but not cellulitic and without evidence of purulent drainage. He was moved to the ICU due to hypotension, and required a short course of pressor therapy. Due to initial need for volume and fluid resuscitation he became fluid overloaded, necessitating eventual diuresis. Mr. Pittman was treated with Cefazolin, and blood cultures that cleared on 05/10/2018. His TTE did not show any evidence of Endocarditis. However, as the patient has a history of both a TAVR and AICD a CASSI was performed on 05/12 that showed no evidence of vegetation or infection. The case was discussed with ID at [facility], with option for either removal and exchange of hardware vs. lifelong antibiotics for suppression. Mr. Pittman did not wish for further procedures, transfer, or removal/exchange of his AICD, and chose instead to remain on antibiotics. He was discharged to swing bed status, where he underwent completion of a 6 week course of IV antibiotic therapy, with weekly surveillance labs, and has felt well. He had an episode of acute gout, successfully treated, otherwise feels well and without complaints. At time of dishcarge he is afebrile, has a normal WBC, and with a normalized ESR and CRP. Home Meds and New Rx's Prescriptions: New Levemir FlexTouch U-100 Insuln 100 unit/mL (3 mL) Insulin Pen 16 unit subcut HS Qty: 15 RF: 0 cephalexin [Keflex] 500 mg capsule 500 mg PO BID Qty: 60 RF: 3 Lactobacillus acidophilus 1 billion cell tablet 1,000 mmu cells PO DAILY Qty: 30 RF: 0 Continued melatonin 3 mg tablet 9 mg PO HS RF: 0 atorvastatin 20 mg tablet 60 mg PO DAILY RF: 0 nitroglycerin [Nitrostat] 0.4 mg tablet, sublingual 0.4 mg SL PRN RF: 0 magnesium oxide 400 mg capsule 400 mg PO BID RF: 0 potassium chloride [Klor-Con 10] 10 mEq tablet extended release 10 meq PO DAILY RF: 0 colchicine 0.6 mg tablet 0.6 mg PO BID PRN (Reason: gout attack) Qty: 30 RF: 3 pregabalin 200 mg capsule 400 mg PO BID Qty: 360 RF: 3 carvedilol 12.5 mg tablet 12.5 mg PO BID RF: 0 Trelegy Ellipta 100-62.5-25 mcg blister with device 1 inh IH DAILY RF: 0 oxycodone 10 mg tablet 10 mg PO .Q4 MDD 40 mg PRN (Reason: pain) Qty: 56 RF: 0 aspirin 81 MG tablet,delayed release (DR/EC) 81 mg PO DAILY RF: 0 KENALOG 0.1% CREAM 454 GM CR 1 melinda Topical PRN Qty: 1 RF: 11 Devilbiss Disposable Nebulizer 1 EACH misc 1 ea Miscellaneous QID PRNQty: 1 RF: 0 blood-glucose meter 1 EACH misc 1 ea Miscellaneous BID Qty: 1 RF: 0 pen needle, diabetic [BD Ultra-Fine Rebecca Pen Needle] 1 EACH needle 1 ea Miscellaneous DAILY 30 Days Qty: 1 RF: 6 lancets 1 EACH misc 1 ea Miscellaneous BID Qty: 200 RF: 3 lancing device with lancets 1 EACH kit 1 ea Miscellaneous DAILY PRNQty: 1 RF: 0 Blood Glucose Test 1 EACH strip 1 ea Miscellaneous TID Qty: 200 RF: 6 cyclobenzaprine 10 MG tablet 10 mg PO BID PRN30 Days Qty: 270 RF: 3 albuterol sulfate [ProAir HFA] 8.5 GM HFA aerosol inhaler 2 puff Inhalation Q2H PRNQty: 3 RF: 6 triamcinolone acetonide 15 GM cream 1 melinda Topical TID 90 Days Qty: 1 RF: 11 fluticasone propionate [Flonase Allergy Relief] 9.9 ML spray,suspension 2 spry NS DAILY Qty: 1 RF: 6 amlodipine 10 MG tablet 10 mg PO DAILY Qty: 90 RF: 3 fenofibrate 150 mg capsule 145 mg PO DAILY RF: 0 acetaminophen [Tylenol] 325 mg Tablet 325 mg PO Q4H PRNRF: 0 albuterol sulfate 1.25 MG/3 ML solution for nebulization 2.5 mg Inhalation QID RF: 0 oxycodone 10 mg tablet 10 mg PO Q4H MDD 40 mg PRN (Reason: pain) Qty: 28 RF: 0 sennosides [Senokot] 8.6 mg Tablet 1 tab PO BID Qty: 0 RF: 0 ipratropium-albuterol 0.5 mg-3 mg(2.5 mg base)/3 mL Solution For Nebulization 3 ml UPD Q6H PRN PRNQty: 0 RF: 0 albuterol sulfate 2.5 mg /3 mL (0.083 %) Solution For Nebulization 2.5 mg UPD Q2H PRN PRNQty: 0 RF: 0 polyethylene glycol 3350 17 gram Powder In Packet 17 g PO DAILY PRN PRN (Reason: Constipation) Qty: 0 RF: 0 pantoprazole [Protonix] 40 mg Recon Soln 40 mg IVP Q24H Qty: 0 RF: 0 docusate sodium [Colace] 100 mg Capsule 100 mg PO TID Qty: 0 RF: 0 mirtazapine [Remeron] 15 mg Tablet 15 mg PO QPM Qty: 0 RF: 0 alum-mag hydroxide-simeth [Mag-Al Plus] 200-200-20 mg/5 mL Suspension 30 ml PO Q2H PRN PRNQty: 0 RF: 0 Novolog Flexpen U-100 Insulin 100 unit/mL Insulin Pen subcut 0800,1200,1700 Qty: 0 RF: 0 ondansetron HCl (PF) 4 mg/2 mL Solution 4 mg IVP Q4H PRN PRNQty: 0 RF: 0 Discontinued acetaminophen [Acetaminophen Extra Strength] 500 MG tablet 1,000 mg PO BID PRN PRNRF: 0 Levemir FlexTouch U-100 Insuln 100 unit/mL (3 mL) insulin pen 10 unit subcut QHS RF: 0 furosemide 40 mg Tablet 40 mg PO DAILY Qty: 0 RF: 0 cefazolin 1 gram Recon Soln 2,000 mg IVPB Q8H Qty: 0 RF: 0 heparin (porcine) 5,000 unit/mL Solution 5,000 units subcut Q8H Qty: 0 RF: 0 vancomycin in dextrose 5 % 1 gram/200 mL Piggyback 1 g IVPB Q16H Qty: 0 RF: 0 Discharge Instructions Instructions: Bacteremia (DC) Additional Instructions: FOLLOW UP INFECTIOUS DISEASE UV. Stand Alone Forms: Nursing Discharge Form Referrals: [facility] [Outside] (Infectious Disease-[facility], phone [phone]. They will call Kam with an appointment.) Tien Galicia DO [Primary Care Provider] - 06/24/18 10:00 am Activity:: Activity as Tolerated Equipment/Supplies:: No Equipment Needed Diet:: Carb Counting Discharge Orders Discharge Orders: Discharge Order (Routine); Ordered 06/20/18 Ordered By: Irving Mercado DS: Data Vitals/I&O Vitals and I&O: Vital Signs Temperature 36.8 C 06/19/18 15:48 Temperature Source Tympanic 06/19/18 15:48 Pulse 89 06/19/18 15:48 Pulse Rhythm Regular 06/19/18 08:30 Respiratory Rate 18 06/19/18 15:48 Respiratory Effort Non-Labored 06/19/18 08:30 Respiratory Depth Normal 06/19/18 08:30 Respiratory Pattern Normal 06/19/18 08:30 Blood Pressure 165/87 H 06/19/18 15:48 Pulse Oximetry 98 06/19/18 15:48 Oxygen Delivery Method Room Air 06/19/18 15:48 Oxygen Flow Rate 0 06/19/18 15:48 Pain Level 8 06/19/18 07:30 Comment 06/15/18 07:20 Intake & Output 06/18/18 06/19/18 06/19/18 23:59 11:59 23:59 Intake Total 777.217 / 1487.217 460 / 820 360 / 820 Balance 777.217 / 1487.217 460 / 820 360 / 820 Weight 85.1 kg Intake: IV 297.217 / 397.217 100 / 100 Oral 480 / 1090 360 / 720 360 / 720 Other: Urine Color Pale Pale Yellow Yellow Urine Appearance Clear Clear Urine Odor None None Comment urines in the tiolet pt voided in the tiolet Voiding Methods Toilet Toilet Completed studies during hospitalization [Text1]: Exam(s) 05/02/2018 a RAD:XR portable chest AP SYMPTOM/DIAGNOSIS: FEELS RESTLESS, H/O CAD PORTABLE AP CHEST: Comparison is made with 12/27/[address] of 02/17/18. A pacemaker is again noted. The heart size is within normal limits for projection. The lungs appear clear. IMPRESSION: No acute abnormality. Exam(s) a US:US echocardiogram Date of study: 05/02/2018 Transthoracic Echocardiography M-mode, complete 2D, complete spectral Doppler, and color Doppler *STUDY CONCLUSIONS* Impressions: Excellent prosthetic valve function without evidence for perivalvular leak. Other valves unchanged. Summary: 1. Left ventricle: The cavity size was normal. Wall thickness was increased in a pattern of moderate LVH. Systolic function was hyperdynamic. The estimated ejection fraction was 65-70%. Wall motion was normal; there were no regional wall motion abnormalities. 2. Aortic valve: A bioprosthesis was present and functioning normally. Peak velocity (S): 2.3m/sec. Mean gradient (S): 13.6mm Hg. Valve area (Vmean): 1.5cm^2. 3. Mitral valve: Severely calcified annulus. 4. Left atrium: The atrium was mildly dilated. 5. Right ventricle: The cavity size was normal. Wall thickness was normal. Cardiac device wire noted in right ventricle. Systolic function was normal. 6. Right atrium: The atrium was dilated. Exam(s) 05/06/2018 a RAD:XR chest 2V PA & lateral SYMPTOM/DIAGNOSIS: FEVER PA AND LATERAL CHEST: The lungs are free of infiltrate. There is no pleural effusion. The heart is not enlarged. A stent is positioned over the aortic root. Cardiac pacing wires are in good position ending in the right atrium and right ventricle. SUMMARY: No evidence of acute cardiopulmonary disease. Exam(s) 05/06/[address]:CT abdomen & pelvis w SYMPTOM/DIAGNOSIS: FEVER, NAUSEA, VOMITING ABDOMEN AND PELVIC CT: The study was carried out according to the usual protocol with an intravenous infusion of 100 cc's of Omnipaque 350. Small regions of dependent atelectasis are noted in the lung bases. There is fatty infiltration of the liver. No mass is demonstrated. The gallbladder is intact. There are no gallstones or ductal dilatation. The pancreas, spleen and kidneys are unremarkable save for two small cortical cysts involving the lower pole of the right kidney. There is no evidence of nephrolithiasis or a cyst or mass. The adrenals are intact. There is some thickening of the gastric wall likely related to incomplete distension. There is no evidence of bowel obstruction. There is evidence of diverticulosis without evidence of diverticulitis. A normal appearing appendix is demonstrated. The suboptimally distended bladder appears grossly normal. The reproductive organs as visualized appear intact with calcification noted in an enlarged prostate. Atherosclerotic changes are demonstrated in the aorta without evidence of an aneurysm. Note is made of a small fat containing umbilical hernia. There are mild degenerative changes involving the lumbar spine and hips. No acute bony abnormality is apparent. SUMMARY: No evidence of an acute intra-abdominal or pelvic abnormality. There is fatty infiltration of the liver and evidence of diverticulosis without findings to suggest diverticulitis. There is no evidence of an acute appendix. There is no evidence of bowel obstruction. Exam(s) 05/08/2018 a RAD:XR portable chest AP SYMPTOM/DIAGNOSIS: DYSPNEA PORTABLE AP CHEST: There are patchy densities in both lungs and what appears to represent a small bilateral pleural effusion. The heart is not enlarged. There is some prominence of the upper lobe vasculature. IMPRESSION: Findings most consistent with congestive failure. The possibility of a concomitant acute pneumonitis is raised. Exam(s) a US:US echocardiogram Date of study: 05/08/2018 Transthoracic Echocardiography M-mode, complete 2D, complete spectral Doppler, and color Doppler *STUDY CONCLUSIONS* Impressions: No evidence of endocarditis, however, this cannot be ruled out, as sensitivity for this finding on TTE is <50%. Apparent increase in gradient across the TAVR valve. Summary: 1. Left ventricle: The cavity size was normal. Wall thickness was increased in a pattern of moderate LVH. Systolic function was hyperdynamic. The estimated ejection fraction was 65-70%. Wall motion was normal; there were no regional wall motion abnormalities. 2. Aortic valve: A bioprosthesis (TAVR Wiley Shon) was present and functioning normally. Transvalvular velocity was increased more than expected. Peak velocity (S): 3.3m/sec. Mean gradient (S): 24.9mm Hg. 3. Mitral valve: Severely calcified annulus. Moderately thickened leaflets. Mobility was mildly restricted. Valve area by pressure half-time: 2cm^2. 4. Left atrium: The atrium was mildly dilated. 5. Right ventricle: The cavity size was mildly dilated. Wall thickness was normal. Systolic function was normal. 6. Right atrium: The atrium was mildly dilated. 7. Pulmonary arteries: Pulmonary systolic pressure was mildly increased. PA peak pressure: 48mm Hg (S). Exam(s) a CT:CT upper extremity RT wo SYMPTOMS/DIAGNOSIS: ? ABSCESS, SMALL WOUND ON POSTERIOR HAND, TENDERNESS CT OF THE RIGHT HAND: There is soft tissue swelling over the dorsal aspect of the hand over the metacarpal region. No drainable abscess is seen. There is no evidence of fracture. Degenerative changes are seen greatest of the interphalangeal joints of the fingers. IMPRESSION: Dorsal soft tissue swelling. No visible abscess. Labs on day of discharge: Labs from last 24 hours 06/19/18 06/19/18 06/19/18 08:10 08:10 00:10 WBC 8.23 RBC 4.10 L Hgb 12.0 L Hct 37.1 L MCV 90.5 MCH 29.3 MCHC 32.3 RDW 14.2 H Plt Count 221 MPV 9.1 ESR 11 Sodium Potassium Chloride Carbon Dioxide Anion Gap BUN Creatinine Estimated GFR/1.73 m2 Glucose Calcium Total Bilirubin 0.4 Conjugated Bilirubin 0.14 AST 22 ALT 18 Alkaline Phosphatase 49 C-Reactive Protein 0.29 Total Protein 7.8 Albumin 4.1 06/19/18 00:10 WBC RBC Hgb Hct MCV MCH MCHC RDW Plt Count MPV ESR Sodium 143 Potassium 3.6 Chloride 106 Carbon Dioxide 26.6 Anion Gap 10.4 BUN 26 H Creatinine 1.25 Estimated GFR/1.73 m2 56.62 Glucose 140 H Calcium 9.6 Total Bilirubin Conjugated Bilirubin AST ALT Alkaline Phosphatase C-Reactive Protein Total Protein Albumin [facility] Medical History Palliative care patient (Chronic) Cellulitis of right hand (Acute) MSSA bacteremia (Acute) STEMI (ST elevation myocardial infarction) (Chronic) Sleep apnea (Chronic 12/28/15) Sciatica of left side (Chronic 03/26/16) Primary osteoarthritis involving multiple joints (Chronic 01/04/16) Pain in lower limb (Chronic 02/18/89) Nonallergic rhinitis (Resolved 01/28/15) Leg pain, left (Chronic 01/17/16) Left lumbar radiculopathy (Chronic 10/26/16) Hypertriglyceridemia (Chronic 12/31/14) Dyspnea on exertion (Chronic 09/20/15) Distal paresthesia (Chronic 02/16/14) DM w/o complication type II, uncontrolled (Chronic 11/12/13) DM neuro manif type II (Chronic) Chronic pain disorder (Chronic 10/26/16) Chronic obstructive pulmonary disease (Chronic 01/21/17) Adjustment disorder, unspecified (Resolved 09/03/16) Acute gastroenteritis (Resolved) Aortic stenosis (Resolved) Discharge planning issues (Resolved) Lumbar back pain with radiculopathy affecting left lower extremity (Chronic) Neuropathy, lateral femoral cutaneous nerve (Chronic) Influenza with respiratory manifestations (Resolved 04/16/14) Diabetes mellitus, type II (Chronic) Hypertension (Chronic) Hyperlipidemia (Chronic) Obesity (Chronic) Peripheral neuropathy (Chronic) Weakness (Chronic 04/16/14) s/p respiratory failure (Chronic 04/16/14) s/p mechanical ventilation (Chronic 04/16/14) Encounter for physical therapy (Chronic 04/16/14) Surgical History H/O surgical procedure (Chronic) Biopsy Skin of left gnosticist (12/10/14) Central line for TPN (03/31/14) Family History Mother Stroke Father No problems noted. Brother No problems noted. Social History Smoking/Tobacco Use Status: Current-Occasional Tobacco Type: cigarettes and cigars Tobacco: How many years used: 60 Quit status: considering quitting Counseling given: counseling >3 minutes Alcohol Intake: former Drug use: Never Substance use type: does not use Caregiver/Support person: No Household members: none Housing: apartment Number of Children: 0 Communication Needs: Corrective Lenses Education Level: high school Do you need help understanding health information?: Often Pets and animals: Yes Pets and animals: dog(s) What is your relationship status?: never How often do you talk on the phone with friends or family?: twice per week How often do you get together with friends or relatives?: once per week Panel score (0-1 are the most socially isolated patients): 1 What type of physical activity do you participate in: bicycling and other Details: stationary bike Duration: 15-30 minutes/day Frequency: 5-6 times per week Agree to transfusion: Yes Seatbelt use: always Drive intox or ride w/intox superintendent drivers: No Water heater temp set <120 deg: Yes Working smoke detector in home: Yes Fire extinguisher in home: Yes Carbon monox detector in home: Yes Do you feel safe at home: Yes Do you feel safe in your relationship?: Yes
[2018-06-19 19:38] VITALS: BP 161/82; PULSE 90; RESP 18; TEMP 36.3; O2SAT 94
[2018-06-19] MEDS: Acetaminophen 325 MG TAB PO (20:14)
[2018-06-19] MEDS: Pantoprazole 40 MG TABCR PO (20:15)
[2018-06-19] MEDS: oxyCODONE 10 MG TAB PO (20:16)
[2018-06-19] MEDS: Mirtazapine 15 MG TAB PO (20:16)
[2018-06-19 21:16] VITALS: PULSE 83; RESP 20
[2018-06-20] MEDS: Normal Saline Flush 10 ML SYR IVP (06:06)
[2018-06-20] MEDS: Normal Saline 500 ML IV (06:07)
[2018-06-20] MEDS: ceFAZolin 2,000 MG in Normal Saline 100 ML 200 MG IVPB (06:07)
[2018-06-20 06:15] VITALS: BP 171/80; PULSE 72; RESP 18; TEMP 36.1; O2SAT 96
[2018-06-20] MEDS: Fluticasone-Umeclidin-Vilanter [Trelegy Ellipta] IH (07:38)
[2018-06-20] MEDS: Fluticasone NASAL SPRAY 16 GM BTL NS (07:40)
[2018-06-20] MEDS: Atorvastatin 20 MG TAB 60 MG PO (07:41)
[2018-06-20] MEDS: Fenofibrate, Micronized 145 MG TAB PO (07:41)
[2018-06-20] MEDS: Furosemide 20 MG TAB PO (07:41)
[2018-06-20] MEDS: Docusate Sodium 100 MG CAP PO (07:41)
[2018-06-20] MEDS: Aspirin E.C. 81 MG TABEC PO (07:42)
[2018-06-20] MEDS: CARVEDILOL 12.5 MG TAB PO (07:42)
[2018-06-20] MEDS: Insulin Aspart 300 UNITS/3 ML PEN SC (07:42)
[2018-06-20] MEDS: Senna TAB 1 TAB PO (07:42)
[2018-06-20] MEDS: amLODIPine 10 MG TAB PO (07:42)
[2018-06-20] MEDS: Magnesium Oxide 400 MG TAB PO (07:42)
[2018-06-20] MEDS: Bacitracin 1 PACKET (11:30)
--- NOTE | 2018-06-20 12:12 | PDOC.CMDIS ---
- If Service Date Differs Date of service: 06/20/18 Time of Service: 12:12 LACE Index Scoring Tool - Questions: Length of Stay (in days): 14 or more Acuity (Admit via E.D.?): No Comorbidities: Previous M.I., Diabetes w/o Complication, Congestive Heart Failure, Chronic Pulmonary Disease E.D. Visits: 3 - Answers: Total Score: 15 Risk of Readmission: High Risk Care Management Discharge Reason for Hospitalization: MSSA bateremia Patient/Family Education Needs: Discharge plan, limitations, follow up plan of care
== END 2018-06-20 12:39 | disposition home or self-care (01) | DRG 872 ==
PROVIDERS: Nurse Practitioner; Admitting Provider Internal Medicine; PCP Family Medicine; Visit Provider Internal Medicine
DX: R78.81 Bacteremia (principal); L03.113 Cellulitis of right upper limb; I13.0 Hypertensive heart and chronic kidney disease with heart failure and stage 1 through stage 4 chronic kidney disease, or unspecified chronic kidney disease; I50.22 Chronic systolic (congestive) heart failure; Z79.2 Long term (current) use of antibiotics; B95.61 Methicillin susceptible Staphylococcus aureus infection as the cause of diseases classified elsewhere; I25.10 Atherosclerotic heart disease of native coronary artery without angina pectoris; N18.9 Chronic kidney disease, unspecified; Z95.810 Presence of automatic (implantable) cardiac defibrillator; Z95.2 Presence of prosthetic heart valve; E11.42 Type 2 diabetes mellitus with diabetic polyneuropathy; G47.33 Obstructive sleep apnea (adult) (pediatric); E78.5 Hyperlipidemia, unspecified; J44.9 Chronic obstructive pulmonary disease, unspecified; Z86.74 Personal history of sudden cardiac arrest; I25.2 Old myocardial infarction; Z79.4 Long term (current) use of insulin; K59.00 Constipation, unspecified
CPT/HCPCS: 36415; 36569; 80048; 80053; 80076; 85027; 85652; 94640; 97110; 97112; 97140; 97161; 97165; 97530; 97535; 99232; 99239; 99306; 80202; 83735; 85025; 86140; 87324; 87798; 94664; J0690; J1644; J2060; J2405; J3490

== ENCOUNTER → 2018-05-22 15:25 | Outpatient (BNVA) | payer OTHER, SELFPAY | PROVIDERS: PCP Family Medicine; Referring Provider Family Medicine; Visit Provider Orthopaedic Surgery | DX: R69 Illness, unspecified (principal) ==

== ENCOUNTER 2018-06-27 08:22 | Outpatient (CLI) | payer OTHER, SELFPAY | END 2018-06-27 08:42 | PROVIDERS: PCP Family Medicine; Visit Provider Internal Medicine | DX: R78.81 Bacteremia (principal) | CPT/HCPCS: 36410; 87040 ==

== ENCOUNTER 2018-07-17 07:10 | Outpatient (CLI) | payer OTHER, SELFPAY ==
[2018-07-17 08:42] LABS: Anion Gap 13.4 mmol/L (3-11); BUN 25 mg/dL (7-18); CO2 23.6 mmol/L (21.0-32.0); CREATININE 1.66 mg/dL (0.70-1.30); Calcium 9.6 mg/dL (8.5-10.1); Chloride 102 mmol/L (98-107); Estimated GFR 40.81 (mL/min/1.73m2); Glucose 174 mg/dL (70-100); Potassium 3.7 mmol/L (3.5-5.1); Sodium 139 mmol/L (136-145)
== END 2018-07-17 07:30 ==
PROVIDERS: PCP Family Medicine; Visit Provider Family Medicine
DX: N18.9 Chronic kidney disease, unspecified (principal); I10 Essential (primary) hypertension
CPT/HCPCS: 80048

== ENCOUNTER 2019-01-17 10:38 | Outpatient (REF) | payer OTHER, SELFPAY | END 2019-01-17 10:58 | LOC: LBN 10:38 | PROVIDERS: PCP Family Medicine; Visit Provider Internal Medicine Infectious Disease | DX: R19.7 Diarrhea, unspecified (principal); Z53.8 Procedure and treatment not carried out for other reasons | CPT/HCPCS: 87324 ==

== ENCOUNTER 2019-01-28 08:08 | Outpatient (CLI) | payer OTHER, SELFPAY ==
[2019-01-28 08:28] LABS: Abs Immature Grans 0.02 k/cumm (0.0-0.09); Absolute Basophil Count 0.04 k/cumm (0.0-0.2); Absolute Eosinophil Count 0.38 k/cumm (0.0-0.7); Absolute Lymphocyte Count 2.13 k/cumm (1.2-3.4); Absolute Monocyte Count 0.64 k/cumm (0.11-0.7); Absolute Neutrophil Count 7.64 k/cumm (1.2-6.7); Basophils % 0.4; Eosinophils % 3.5; HCT 48.1 % (40.0-50.0); HGB 16.3 g/dL (13.5-17.5); Immature Grans % 0.2; Lymphocytes % 19.6; Mean Corp. HGB Concentration 33.9 g/dL (32.0-36.0); Mean Corpuscular Hemoglobin 29.9 pg (27.0-33.0); Mean Corpuscular Volume 88.3 fL (80-95); Mean Platelet Volume 8.7 fL (8.0-11.0); Monocytes % 5.9; Neutrophils % 70.4; Platelet Count 256 x1000/uL (130-400); RBC 5.45 m/cumm (4.50-6.00); RBC Distribution Width 15.4 % (11.8-14.1); White Blood Cell Count 10.85 k/cumm (4.4-10.8)
[2019-01-28 09:37] LABS: ALT 37 U/L (16-63); AST 19 U/L (15-37); Albumin 4.7 g/dL (3.4-5.0); Alkaline Phosphatase 56 U/L (46-116); Anion Gap 12.9 mmol/L (3-11); BUN 19 mg/dL (7-18); Bilirubin, Total 0.3 mg/dL (0.2-1.0); CO2 26.1 mmol/L (21.0-32.0); CREATININE 1.12 mg/dL (0.70-1.30); Chloride 104 mmol/L (98-107); Glucose 129 mg/dL (74-106); Sodium 143 mmol/L (136-145); Total Protein 8.1 g/dL (6.4-8.2)
== END 2019-01-28 08:28 ==
PROVIDERS: PCP Family Medicine; Visit Provider Internal Medicine Infectious Disease
DX: R78.81 Bacteremia (principal)
CPT/HCPCS: 36415; 80053; 85025

== ENCOUNTER 2019-02-16 06:49 | Outpatient (CLI) | payer OTHER, SELFPAY ==
[2019-02-16 08:22] LABS: ALT 47 U/L (16-63); AST 31 U/L (15-37); Albumin 4.4 g/dL (3.4-5.0); Alkaline Phosphatase 49 U/L (46-116); Anion Gap 14.6 mmol/L (3-11); BUN 19 mg/dL (7-18); Bilirubin, Total 0.6 mg/dL (0.2-1.0); CO2 24.4 mmol/L (21.0-32.0); CREATININE 1.08 mg/dL (0.70-1.30); Calcium 9.6 mg/dL (8.5-10.1); Calculated LDL 52 mg/dL; Chloride 104 mmol/L (98-107); Cholesterol 140 mg/dL (<200); Glucose 129 mg/dL (74-106); HDL Cholesterol 18 mg/dL (40-60); Sodium 143 mmol/L (136-145); Total Protein 7.6 g/dL (6.4-8.2); Triglyceride 352 mg/dL (<150)
== END 2019-02-16 07:09 ==
PROVIDERS: PCP Family Medicine; Visit Provider Family Medicine
DX: I25.10 Atherosclerotic heart disease of native coronary artery without angina pectoris (principal)
CPT/HCPCS: 36415; 80053; 80061

== ENCOUNTER 2019-02-19 02:11 | Outpatient (CLI) | payer OTHER, SELFPAY ==
--- NOTE | 2019-02-19 14:49 | DI.CTLCSR_ITS ---
EXAM: CT CHEST LUNG CANCER SCREEN CLINICAL HISTORY: PERSONAL H/O NICOTINE DEPENDENCE, Z87.891, EX-SMOKER TECHNIQUE: CT examination of the chest was performed utilizing low-dose lung cancer screening martha col. FINDINGS: Examination is compared with prior examination of 02/16/2018. Images obtained through the upper abdo men show unremarkable appearance of visualized portions of liver, spleen, pancreas, adrenals and kidn eys. No significant mediastinal or hilar adenopathy. Transvenous cardiac pacemaker and aortic root graft noted. Tracheobronchial tree appears intact. There is apparent mild central lobular emphysema . There are multiple small calcific nodules bilaterally consistent with healed granulomatous disease . Noncalcified 4 millimeter right middle lobe nodule and lingular nodule unchanged from prior study. No new nodule identified. No pleural effusion seen. IMPRESSION: Stable bilateral 4 millimeter intrapulmonary nodules. Category 2, benign appearance or behavior. Co ntinue annual screening with LDCT in 12 months. Lung RADS Cat 2 - Benign Appearance / Behavior: Nodules with a very low likelihood of becoming a clin ically active cancer due to size or lack of growth.
== END 2019-02-19 02:31 ==
PROVIDERS: PCP Family Medicine; Visit Provider Internal Medicine
DX: Z12.2 Encounter for screening for malignant neoplasm of respiratory organs (principal); R91.8 Other nonspecific abnormal finding of lung field; Z95.0 Presence of cardiac pacemaker; J84.10 Pulmonary fibrosis, unspecified; Z87.891 Personal history of nicotine dependence
CPT/HCPCS: G0297

== ENCOUNTER 2019-03-23 09:42 | Outpatient (CLI) | payer OTHER, SELFPAY ==
[2019-03-23 11:01] LABS: Uric Acid 5.9 mg/dL (3.5-7.2)
== END 2019-03-23 10:02 ==
PROVIDERS: PCP Family Medicine; Visit Provider Family Medicine
DX: M10.9 Gout, unspecified (principal)
CPT/HCPCS: 36415; 84550

== ENCOUNTER → 2019-05-12 14:42 | Outpatient (BNVA) | payer OTHER, SELFPAY | PROVIDERS: PCP Family Medicine; Referring Provider Family Medicine; Visit Provider Internal Medicine Cardiovascular Disease | DX: Z95.810 Presence of automatic (implantable) cardiac defibrillator (principal); I50.9 Heart failure, unspecified; I25.10 Atherosclerotic heart disease of native coronary artery without angina pectoris; I42.2 Other hypertrophic cardiomyopathy; Z95.3 Presence of xenogenic heart valve; I11.0 Hypertensive heart disease with heart failure | CPT/HCPCS: 99204; 99443 ==

== ENCOUNTER → 2019-07-27 08:50 | Outpatient (BNVA) | payer OTHER, SELFPAY | PROVIDERS: PCP Family Medicine; Referring Provider Family Medicine; Visit Provider Surgery | DX: Z12.11 Encounter for screening for malignant neoplasm of colon (principal) ==

== ENCOUNTER 2019-07-31 07:39 | Day surgery (SDC) | payer OTHER, SELFPAY ==
[2019-07-31 07:30] VITALS: BP 141/86; PULSE 105; RESP 20; TEMP 36.6; O2SAT 96
[2019-07-31] MEDS: Lactated Ringers 1,000 ML 80 ML IV (08:42)
--- NOTE | 2019-07-31 09:28 | W.PM.DSUDISC ---
Discharge Plan Disposition Patient Disposition: HOME Condition: Good Discharge Details Reason For Visit: Colonoscopy Attending Provider: Luann Almazan Primary Care Provider: Tien Galicia Home Meds and New Rx's Prescriptions: Continued colchicine 0.6 mg tablet 0.6 mg PO BID PRN (Reason: gout attack) Qty: 30 RF: 3 pregabalin 200 mg capsule See Rx Instructions PO BID MDD 600 mg Qty: 0 RF: 0 oxycodone 10 mg tablet 10 mg PO BID MDD 40 mg PRN (Reason: pain) Qty: 56 RF: 0 oxycodone 10 mg tablet 10 mg PO BID MDD 40 mg PRN (Reason: pain) Qty: 56 RF: 0 Trelegy Ellipta 100-62.5-25 mcg blister with device 1 inh IH DAILY RF: 0 carvedilol 12.5 mg tablet 12.5 mg PO BID Qty: 180 RF: 3 cyclobenzaprine 10 mg tablet 10 mg PO TID PRN (Reason: muscle spasm) Qty: 270 RF: 3 nitroglycerin [Nitrostat] 0.4 mg tablet, sublingual 0.4 mg SL PRN Qty: 30 RF: 3 lisinopril 40 mg tablet 40 mg PO DAILY Qty: 90 RF: 3 furosemide 20 mg tablet 20 mg PO DAILY Qty: 90 RF: 3 aspirin 81 MG tablet,delayed release (DR/EC) 81 mg PO DAILY RF: 0 (DME) Devilbiss Disposable Nebulizer 1 EACH misc 1 ea Miscellaneous QID Qty: 1 RF: 0 (DME) blood-glucose meter 1 EACH misc 1 ea Miscellaneous BID Qty: 1 RF: 0 (DME) lancing device with lancets 1 EACH kit 1 ea Miscellaneous DAILY Qty: 1 RF: 0 amlodipine 10 mg tablet 10 mg PO DAILY Qty: 90 RF: 3 albuterol sulfate 2.5 mg /3 mL (0.083 %) solution for nebulization 2.5 mg UPD Q2H PRN PRN (Reason: shortness of breath or wheezing) Qty: 180 RF: 3 triamcinolone acetonide 0.1 % cream 1 applic Topical TID 90 Days Qty: 1 RF: 11 glipizide 5 mg tablet 5 mg PO BID Qty: 180 RF: 3 atorvastatin 20 mg tablet 20 mg PO DAILY Qty: 90 RF: 3 atorvastatin 40 mg tablet 40 mg PO DAILY Qty: 90 RF: 3 fenofibrate 150 mg capsule 145 mg PO DAILY Qty: 90 RF: 3 metformin 500 mg tablet 1,000 mg PO BID Qty: 360 RF: 3 albuterol sulfate [ProAir HFA] 90 mcg/actuation HFA aerosol inhaler 2 puff IH Q6H PRNRF: 0 Januvia 50 mg tablet 50 mg PO DAILY Qty: 90 RF: 3 cephalexin [Keflex] 500 mg capsule 500 mg PO BID Qty: 180 RF: 3 fluticasone propionate [Flonase Allergy Relief] 50 mcg/actuation spray,suspension 2 spray NS DAILY Qty: 1 RF: 6 mirtazapine [Remeron] 15 mg tablet 15 mg PO QPM Qty: 90 RF: 3 (DME) blood sugar diagnostic [Blood Glucose Test] Strip 1 ea Miscellaneous TID Qty: 300 RF: 6 Levemir FlexTouch U-100 Insuln 100 unit/mL (3 mL) insulin pen 25 unit subcut HS Qty: 18 RF: 3 (DME) lancets Misc 1 ea Miscellaneous BID Qty: 300 RF: 3 (DME) pen needle, diabetic [BD Ultra-Fine Rebecca Pen Needle] 32 gauge x 5/32 needle 1 ea Miscellaneous DAILY 30 Days Qty: 200 RF: 6 acetaminophen [Tylenol] 325 mg Tablet 325 mg PO Q4H PRNRF: 0 Discharge Instructions Additional Instructions: Findings: Your colonoscopy showed diverticulosis. Make sure to take in 30 grams of fiber daily. Follow up: Routine screening colonoscopy is not needed but contact your primary care doctor for any new symptoms such as change in bowel habits or blood in the stool. Please call if you develop: fevers >101.5 Nausea or Vomiting Abdominal pain that is not transient DAY SURGERY UNIT POST COLONOSCOPY INSTRUCTIONS 1. Because there will be medication in your system for the next 24 hours, you may feel a little sleepy. Your coordination will be affected. Therefore: a. Do not drive or operate dangerous equipment for 24 hours. b. Do not drink alcohol beverages for 24 hours (not even beer). c. Plan to go home and rest for the day. 2. Generally there are no restrictions on your activity after a day or so has gone by, but you may feel a bit fatigued for a few days. 3 After you arrive home you may have a light meal and return to a normal diet as you can tolerate it without feeling sick to your stomach. 4. After surgery, you may feel pain or discomfort. This should be only transient, but if it persists please contact your doctor. 5. If there are any questions regarding the findings of your procedure, please feel free to contact your doctor. 6. If you are unable to contact your doctor with a problem, contact the hospital at [phone]. 7. Continue all your regular medications unless directed otherwise. I understand the above instructions and have no questions. Signature of Patient or Responsible Adult Escort Date/Time Name of Responsible Adult Escort Signature of Nurse Date/Time Stand Alone Forms: Sahil Asencio (NICKIU) Activity:: Activity as Tolerated Diet:: As Tolerated Discharge Orders Discharge Orders: Discharge Order (Routine); Ordered 07/31/19 Ordered By: Luann Almazan DS: Diagnosis Discharge Diagnosis (1) Diverticulosis: Status: Acute
--- NOTE | 2019-07-31 10:20 | W.COLOREPORT ---
Date of service: 07/31/19 Time of Service: 10:21 Colonoscopy Report Date of procedure: 07/31/19 Pre-op diagnosis general: Screening Post-op diagnosis procedure note: other (Diverticulosis) Procedure: Colonoscopy Surgeon: Luann Almazan Anesthesia proc note operative: MAC Disposition: same day Indications: This patient presents for routine screening colonoscopy. His last one was approximately 10 years ago. No symptoms. No FH of colon cancer. Procedure Description: The patient was placed in the left Degroot position. Propofol was titrated to sedation. Digital rectal examination revealed no abnormalities. The scope was advanced to the cecum without difficulty. The ileocecal valve and appendiceal orifice were clearly identified. The prep was good. The scope was slowly withdrawn over the course of greater than 6 minutes with no abnormalities seen in the ascending, transverse, descending, sigmoid colon or rectum including on retroflexed view with the exception of moderate sigmoid diverticulosis. The patient tolerated the procedure well and was stable to recovery. Routine screening colonoscopy is not longer needed but can be considered if symptoms indicate.
[2019-07-31 10:49] VITALS: BP 135/76; PULSE 94; RESP 22; TEMP 36.8; O2SAT 94
== END 2019-07-31 11:15 | disposition home or self-care (01) ==
PROVIDERS: PCP Family Medicine; Visit Provider Surgery
PROC: 0DJD8ZZ Inspection of Lower Intestinal Tract, Via Natural or Artificial Opening Endoscopic (ICD-10-PCS; CPT 45378; principal; 2019-07-31 09:30)
DX: Z12.11 Encounter for screening for malignant neoplasm of colon (principal); K57.30 Diverticulosis of large intestine without perforation or abscess without bleeding
CPT/HCPCS: G0121

== ENCOUNTER → 2019-11-09 12:51 | Outpatient (BNVA) | payer OTHER, SELFPAY | PROVIDERS: PCP Family Medicine; Referring Provider Family Medicine; Visit Provider Internal Medicine Cardiovascular Disease | DX: I25.10 Atherosclerotic heart disease of native coronary artery without angina pectoris (principal); I50.9 Heart failure, unspecified; I11.0 Hypertensive heart disease with heart failure; E11.9 Type 2 diabetes mellitus without complications; Z79.84 Long term (current) use of oral hypoglycemic drugs; J44.9 Chronic obstructive pulmonary disease, unspecified | CPT/HCPCS: 99214 ==

== ENCOUNTER 2019-11-20 10:54 | Day surgery (SDC) | payer OTHER, SELFPAY ==
[2019-11-20 11:05] VITALS: PULSE 95; RESP 16; TEMP 36.6; O2SAT 96
[2019-11-20] MEDS: Tropicam./Phenyleph. (1/2.5%) 5 ML BTL OD ×3 (11:26→11:37)
[2019-11-20] MEDS: Midazolam/Ketamine/Ondansetron (3/25/2MG) 1 TAB 1 EACH SL (12:00)
[2019-11-20] MEDS: Tetracaine 0.5% 4 ML BTL OD (12:07)
[2019-11-20] MEDS: Balanced Salt Soln.-PLUS 500 ML BAG (12:08)
[2019-11-20] MEDS: Lidocaine 2% Jelly 6 ML SYR (12:09)
[2019-11-20] MEDS: Lidocaine 1% Pres-Free 5 ML VIAL (12:09)
[2019-11-20] MEDS: Moxifloxacin-PF 1 MG/ML VIAL (12:10)
[2019-11-20] MEDS: Povidone-Iodine Ophth 30 ML BTL (12:11)
--- NOTE | 2019-11-20 12:31 | PDOC.DSDIS_ITS ---
Discharge Plan Disposition Patient Disposition: HOME Condition: Good Discharge Details Attending Provider: Jesse Sullivan Primary Care Provider: Tien Galicia Home Meds and New Rx's Prescriptions: No Action colchicine 0.6 mg tablet 0.6 mg PO BID PRN (Reason: gout attack) Qty: 30 RF: 3 Levemir FlexTouch U-100 Insuln 100 unit/mL (3 mL) insulin pen See Rx Instructions subcut HS Qty: 18 RF: 3 oxycodone 10 mg tablet 10 mg PO BID MDD 40 mg PRN (Reason: pain) Qty: 56 RF: 0 oxycodone 10 mg tablet 10 mg PO BID MDD 40 mg PRN (Reason: pain) Qty: 56 RF: 0 oxycodone 10 mg tablet 10 mg PO BID MDD 40 mg PRN (Reason: pain) Qty: 56 RF: 0 nitroglycerin [Nitrostat] 0.4 mg tablet, sublingual 0.4 mg SL PRN Qty: 30 RF: 3 Trelegy Ellipta 100-62.5-25 mcg blister with device 1 inh IH DAILY RF: 0 carvedilol 12.5 mg tablet 12.5 mg PO BID Qty: 180 RF: 3 cyclobenzaprine 10 mg tablet 10 mg PO TID PRN (Reason: muscle spasm) Qty: 270 RF: 3 lisinopril 40 mg tablet 40 mg PO DAILY Qty: 90 RF: 3 furosemide 20 mg tablet 20 mg PO DAILY Qty: 90 RF: 3 aspirin 81 MG tablet,delayed release (DR/EC) 81 mg PO DAILY RF: 0 (DME) Devilbiss Disposable Nebulizer 1 EACH misc 1 ea Miscellaneous QID Qty: 1 RF: 0 (DME) blood-glucose meter 1 EACH misc 1 ea Miscellaneous BID Qty: 1 RF: 0 (DME) lancing device with lancets 1 EACH kit 1 ea Miscellaneous DAILY Qty: 1 RF: 0 albuterol sulfate 2.5 mg /3 mL (0.083 %) solution for nebulization 2.5 mg UPD Q2H PRN PRN (Reason: shortness of breath or wheezing) Qty: 180 RF: 3 triamcinolone acetonide 0.1 % cream 1 applic Topical TID 90 Days Qty: 1 RF: 11 glipizide 5 mg tablet 5 mg PO BID Qty: 180 RF: 3 atorvastatin 20 mg tablet 20 mg PO DAILY Qty: 90 RF: 3 atorvastatin 40 mg tablet 40 mg PO DAILY Qty: 90 RF: 3 fenofibrate 150 mg capsule 145 mg PO DAILY Qty: 90 RF: 3 metformin 500 mg tablet 1,000 mg PO BID Qty: 360 RF: 3 albuterol sulfate [ProAir HFA] 90 mcg/actuation HFA aerosol inhaler 2 puff IH Q6H PRNRF: 0 cephalexin [Keflex] 500 mg capsule 500 mg PO BID Qty: 180 RF: 3 fluticasone propionate [Flonase Allergy Relief] 50 mcg/actuation spray, suspension 2 spray NS DAILY Qty: 1 RF: 6 (DME) Blood Glucose Test Strip 1 ea Miscellaneous TID Qty: 300 RF: 6 (DME) lancets Misc 1 ea Miscellaneous BID Qty: 300 RF: 3 (DME) pen needle, diabetic [BD Ultra-Fine Rebecca Pen Needle] 32 gauge x 5/32 needle 1 ea Miscellaneous DAILY 30 Days Qty: 200 RF: 6 Januvia 100 mg tablet 100 mg PO DAILY Qty: 90 RF: 3 amlodipine 10 mg tablet 10 mg PO DAILY Qty: 90 RF: 3 acetaminophen [Tylenol] 325 mg Tablet 325 mg PO Q4H PRNRF: 0 Discharge Instructions Stand Alone Forms: Post-op Topical Cataract, Sahil Asencio (DSU) Discharge Orders Discharge Orders: Discharge Order (Routine); Ordered 11/20/19 Ordered By: Jesse Sullivan DS: Diagnosis Discharge Diagnosis (1) Cortical cataract of right eye: Status: Resolved (2) Nuclear sclerotic cataract of right eye: Status: Resolved
--- NOTE | 2019-11-20 12:33 | W.PM.OP ---
Date of service: 11/20/19 Time of Service: 12:33 Operative Note Operative Note DATE OF PROCEDURE: 11/20/19 PRE-OP DIAGNOSIS: Nuclear/cortical cataract, right eye POST-OP DIAGNOSIS: same PROCEDURE: Cataract extraction using phacoemulsification with intraocular lens implant, right eye SURGEON: Jesse Sullivan ANESTHESIA: MAC and local (sub-tenon's anesthetic infiltration) ESTIMATED BLOOD LOSS: 0 PATHOLOGY: none sent COMPLICATIONS: None Patient was transported to: same day Patient's condition: stable Implants: [employer] / [employer] Tecnis ZCB00 intraocular lens Indications: Progressive decreased vision due to cataract, right eye Procedure Description: CATARACT SURGERY OPERATIVE REPORT PREOPERATIVE DIAGNOSIS: Nuclear/cortical cataract, right eye POSTOPERATIVE DIAGNOSIS: Same OPERATION: Cataract extraction using phacoemulsification with posterior chamber intraocular lens implant, right eye. IOL: IOL Warehouse Operations Associate/Model: J[employer]J Vision / MAGGI Tecnis ZCB00 IOL Power: + 20.0 diopters IOL Serial Number: [id number] Optic Diameter: 6.0mm Haptic/Overall Diameter: 13.0mm PHACO INFO: Theo [employer]urion Vision System with OZil and Active Fluidics Cumulative Dispersed Energy (CDE): 8.99 seconds SURGEON: Jesse Sullivan MD, PACO ANESTHESIA: Monitored Anesthesia Care (MAC), with local sub-tenon's anesthetic infiltration COMPLICATIONS: None SPECIMENS: None INDICATIONS FOR PROCEDURE: The patient is a 74-year-old gentleman with history of diminished visual acuity in his right eye secondary to the development of nuclear and cortical cataract. He is significantly symptomatic that he desires cataract surgery and attempt to improve and maximize his vision. PROCEDURE: The correct surgical eye was identified and marked as the right eye and the pupil was dilated in the preoperative area using mydriatics and cycloplegics. The dilated pupil size was 7.0 mm. Oral sedation was administered in the form of an Imprimis MKO Melt (midazolam 3mg/ketamine 25mg/ondansetron 2mg). The patient was brought to the operating room where cardiopulmonary monitoring was instituted and surgical time-out was performed, confirming the correct operative eye and IOL power. Topical anesthesia was administered and ophthalmic povidone-iodine 5% was instilled into the conjunctival fornices. Lidocaine gel was applied to the cornea and the pat-ocular area was prepped with Betadine 10% solution and draped in the usual sterile fashion for intraocular surgery, including an aperture drape. A Tegaderm transparent film dressing was cut in half and used to cover the lashes and lid margins. Care was taken to sequester the lashes and lid margins under the Tegaderm dressing. A lid speculum was placed between the lids of the operative eye and the Rob-Tunde operating microscope was maneuvered into position. Daily scissors were then used to make a conjunctival buttonhole approximately 6mm posterior to the limbus in the inferonasal quadrant. Blunt dissection was carried out to expose bare sclera, and a blunt-tipped sub-tenon?s anesthesia cannula was introduced and passed posteriorly along the globe where non-preserved plain lidocaine was injected into posterior sub-Tenon?s space. A sideport knife was used to make a paracentesis port inferiortemporally. Intraocular phenylephrine/lidocaine was injected into the anterior chamber. The anterior chamber was then filled with Healon Pro. A 2.4mm keratome knife was used to create a half-thickness groove at the limbus and then to construct a three-plane near-clear corneal tunnel extending 2.0mm into clear cornea in the superiortemporal position. . A flap was raised on the anterior capsule and capsulorhexis forceps were used to complete a continuous curvilinear capsulorhexis of 5.0 mm. Balanced salt solution was then used to perform cortical cleaving hydrodissection and nuclear hydrodelineation until the lens could be freely rotated within the capsular bag. The lens nucleus was then disassembled and removed within the capsular bag and iris plane using phacoemulsification. Residual cortical material was removed using the I/A handpiece. The posterior capsule was carefully polished to remove as much residual lens epithelial cells as safely possible. The capsular bag was then inflated and the anterior chamber deepened with viscoelastic. The lens implant described above was inserted into the capsular bag using the MAGGI [place] Injector. A Kuglen hook was used to dial the IOL into position. Residual viscoelastic was then removed first from posterior to the IOL, then from the anterior chamber using the I/A handpiece. The lens implant was noted to center nicely within the capsular bag. The incisions were stromally hydrated, and the anterior chamber was reformed using BSS. Then 0.5cc of moxifloxacin 1.0mg/ml were injected into the capsular bag and anterior chamber. The incisions were checked with a Weck spear and found to be secure. Several drops of ophthalmic povidone-iodine 5% were then applied to the eye followed by two drops of Imprimis combination prednisolone/moxifloxacin/nepafenac solution. The drapes were removed and a clear plastic protective eye shield was placed over the eye. The patient was then returned to Same Day Surgery in stable condition.
[2019-11-20 12:50] VITALS: BP 152/90; PULSE 92; RESP 18; TEMP 36.1; O2SAT 96
== END 2019-11-20 13:20 | disposition home or self-care (01) ==
PROVIDERS: PCP Family Medicine; Visit Provider Ophthalmology
PROC: (CPT 66984; principal; 2019-11-20 14:30)
DX: H25.11 Age-related nuclear cataract, right eye (principal); E11.22 Type 2 diabetes mellitus with diabetic chronic kidney disease; I12.9 Hypertensive chronic kidney disease with stage 1 through stage 4 chronic kidney disease, or unspecified chronic kidney disease; N18.9 Chronic kidney disease, unspecified
CPT/HCPCS: 66984; V2632

== ENCOUNTER 2019-12-04 06:19 | Day surgery (SDC) | payer OTHER, SELFPAY ==
[2019-12-04 06:20] VITALS: BP 171/96; PULSE 113; RESP 18; TEMP 36.2; O2SAT 96
[2019-12-04] MEDS: Tropicam./Phenyleph. (1/2.5%) 5 ML BTL OS ×3 (06:40→06:51)
[2019-12-04] MEDS: Tetracaine 0.5% 4 ML BTL OS (07:25)
[2019-12-04] MEDS: Povidone-Iodine Ophth 30 ML BTL (07:25)
[2019-12-04] MEDS: Lidocaine 2% Jelly 6 ML SYR (07:26)
[2019-12-04] MEDS: Lidocaine 1% Pres-Free 5 ML VIAL (07:32)
[2019-12-04] MEDS: Moxifloxacin-PF 1 MG/ML VIAL (07:36)
[2019-12-04] MEDS: Balanced Salt Soln.-PLUS 500 ML BAG (07:37)
--- NOTE | 2019-12-04 08:03 | W.PM.DSUDISC ---
Discharge Plan Disposition Patient Disposition: HOME Condition: Good Discharge Details Attending Provider: Jesse Sullivan Primary Care Provider: Tien Galicia Home Meds and New Rx's Prescriptions: No Action colchicine 0.6 mg tablet 0.6 mg PO BID PRN (Reason: gout attack) Qty: 30 RF: 3 Levemir FlexTouch U-100 Insuln 100 unit/mL (3 mL) insulin pen See Rx Instructions subcut HS Qty: 18 RF: 3 oxycodone 10 mg tablet 10 mg PO BID MDD 40 mg PRN (Reason: pain) Qty: 56 RF: 0 nitroglycerin [Nitrostat] 0.4 mg tablet, sublingual 0.4 mg SL PRN Qty: 30 RF: 3 Trelegy Ellipta 100-62.5-25 mcg blister with device 1 inh IH DAILY RF: 0 carvedilol 12.5 mg tablet 12.5 mg PO BID Qty: 180 RF: 3 cyclobenzaprine 10 mg tablet 10 mg PO TID PRN (Reason: muscle spasm) Qty: 270 RF: 3 lisinopril 40 mg tablet 40 mg PO DAILY Qty: 90 RF: 3 furosemide 20 mg tablet 20 mg PO DAILY Qty: 90 RF: 3 aspirin 81 MG tablet,delayed release (DR/EC) 81 mg PO DAILY RF: 0 (DME) Devilbiss Disposable Nebulizer 1 EACH misc 1 ea Miscellaneous QID Qty: 1 RF: 0 (DME) blood-glucose meter 1 EACH misc 1 ea Miscellaneous BID Qty: 1 RF: 0 (DME) lancing device with lancets 1 EACH kit 1 ea Miscellaneous DAILY Qty: 1 RF: 0 albuterol sulfate 2.5 mg /3 mL (0.083 %) solution for nebulization 2.5 mg UPD Q2H PRN PRN (Reason: shortness of breath or wheezing) Qty: 180 RF: 3 triamcinolone acetonide 0.1 % cream 1 applic Topical TID 90 Days Qty: 1 RF: 11 glipizide 5 mg tablet 5 mg PO BID Qty: 180 RF: 3 fenofibrate 150 mg capsule 145 mg PO DAILY Qty: 90 RF: 3 metformin 500 mg tablet 1,000 mg PO BID Qty: 360 RF: 3 albuterol sulfate [ProAir HFA] 90 mcg/actuation HFA aerosol inhaler 2 puff IH Q6H PRNRF: 0 cephalexin [Keflex] 500 mg capsule 500 mg PO BID Qty: 180 RF: 3 fluticasone propionate [Flonase Allergy Relief] 50 mcg/actuation spray,suspension 2 spray NS DAILY Qty: 1 RF: 6 (DME) Blood Glucose Test Strip 1 ea Miscellaneous TID Qty: 300 RF: 6 (DME) lancets Misc 1 ea Miscellaneous BID Qty: 300 RF: 3 (DME) pen needle, diabetic [BD Ultra-Fine Rebecca Pen Needle] 32 gauge x 5/32 needle 1 ea Miscellaneous DAILY 30 Days Qty: 200 RF: 6 Januvia 100 mg tablet 100 mg PO DAILY Qty: 90 RF: 3 amlodipine 10 mg tablet 10 mg PO DAILY Qty: 90 RF: 3 atorvastatin 20 mg tablet 20 mg PO DAILY Qty: 90 RF: 3 atorvastatin 40 mg tablet 40 mg PO DAILY Qty: 90 RF: 3 acetaminophen [Tylenol] 325 mg Tablet 325 mg PO Q4H PRNRF: 0 Discharge Instructions Stand Alone Forms: Post-op Topical Cataract, Sahil Asencio (DSU) Discharge Orders Discharge Orders: Discharge Order (Routine); Ordered 12/04/19 Ordered By: Jesse Sullivan DS: Diagnosis Discharge Diagnosis (1) Cortical cataract of left eye: Status: Resolved (2) Nuclear sclerotic cataract of left eye: Status: Resolved
--- NOTE | 2019-12-04 08:04 | ROE_ITS ---
Date of service: 12/04/19 Time of Service: 08:04 Operative Note Operative Note DATE OF PROCEDURE: 12/04/19 PRE-OP DIAGNOSIS: Nuclear/cortical cataract, left eye POST-OP DIAGNOSIS: same PROCEDURE: Cataract extraction using phacoemulsification with intraocular lens implant, left eye SURGEON: Jesse Sullivan ANESTHESIA: MAC and local (sub-tenon's anesthetic infiltration) PATHOLOGY: none sent COMPLICATIONS: None Patient was transported to: same day Patient's condition: stable Implants: [employer] / [employer] Tecnis ZCB00 Indications: Progressive decreased vision due to cataract, left eye Procedure Description: CATARACT SURGERY OPERATIVE REPORT PREOPERATIVE DIAGNOSIS: Nuclear/cortical cataract, left eye POSTOPERATIVE DIAGNOSIS: Same OPERATION: Cataract extraction using phacoemulsification with posterior chamber intraocular lens implant, left eye. IOL: IOL Game Farm Supervisor/Model: J&J Vision / MAGGI Tecnis ZCB00 IOL Power: + 20.0 diopters IOL Serial Number: [id number] Optic Diameter: 6.0mm Haptic/Overall Diameter: 13.0mm PHACO INFO: Theo [employer] Vision System with OZil and Active Fluidics Cumulative Dispersed Energy (CDE): 9.58 seconds SURGEON: Jesse Sullivan MD, PACO ANESTHESIA: Monitored Anesthesia Care (MAC), with local sub-tenon's anesthetic infiltration COMPLICATIONS: None SPECIMENS: None INDICATIONS FOR PROCEDURE: The patient is a 74-year-old gentleman with history of diminished visual acuity in both eyes secondary to the development of bilateral nuclear and cortical cataract. He is significantly symptomatic that he desires cataract surgery and attempt to improve and maximize his vision. He has already undergone cataract surgery in the right eye and is doing well postoperatively. PROCEDURE: The correct surgical eye was identified and marked as the left eye and the pupil was dilated in the preoperative area using mydriatics and cycloplegics. The dilated pupil size was 7.0 mm. Oral sedation was administered in the form of an Imprimis MKO Melt (midazolam 3mg/ketamine 25mg/ondansetron 2mg). The patient was brought to the operating room where cardiopulmonary monitoring was instituted and surgical time-out was performed, confirming the correct operative eye and IOL power. Topical anesthesia was administered and ophthalmic povidone-iodine 5% was instilled into the conjunctival fornices. Lidocaine gel was applied to the cornea and the pat-ocular area was prepped with Betadine 10% solution and draped in the usual sterile fashion for intraocular surgery, including an aperture drape. A Tegaderm transparent film dressing was cut in half and used to cover the lashes and lid margins. Care was taken to sequester the lashes and lid margins under the Tegaderm dressing. A lid speculum was placed between the lids of the operative eye and the Rob-Tunde operating microscope was maneuvered into position. Daily scissors were then used to make a conjunctival buttonhole approximately 6mm posterior to the limbus in the inferonasal quadrant. Blunt dissection was carried out to expose bare sclera, and a blunt-tipped sub-tenon?s anesthesia cannula was introduced and passed posteriorly along the globe where non- preserved plain lidocaine was injected into posterior sub-Tenon?s space. A sideport knife was used to make a paracentesis port superior/superiortemporally. Intraocular phenylephrine/lidocaine was injected into the anterior chamber. The anterior chamber was then filled with Healon Pro. A 2.4mm keratome knife was used to create a half-thickness groove at the limbus and then to construct a three-plane near-clear corneal tunnel extending 2.0mm into clear cornea in the temporal position. . A flap was raised on the anterior capsule and capsulorhexis forceps were used to complete a continuous curvilinear capsulorhexis of 4.8 mm. The anterior chamber was noted to be unusually deep. Balanced salt solution was then used to perform cortical cleaving hydrodissection and nuclear hydrodelineation until the lens could be freely rotated within the capsular bag. The lens nucleus was then disassembled and removed within the capsular bag and iris plane using phacoemulsification. Residual cortical material was removed using the 45-degree angled silicone I/A tip with 0.3mm port. The posterior capsule was carefully polished to remove as much residual lens epithelial cells as safely possible. The capsular bag was then inflated and the anterior chamber deepened with viscoelastic. The lens implant described above was inserted into the capsular bag using the MAGGI [place] Injector. A Kuglen hook was used to dial the IOL into position. Residual viscoelastic was then removed first from posterior to the IOL, then from the anterior chamber using the I/A handpiece. The lens implant was noted to center nicely within the capsular bag. The incisions were stromally hydrated, and the anterior chamber was reformed using BSS. Then 0.5cc of moxifloxacin 1.0mg/ml were injected into the capsular bag and anterior chamber. The incisions were checked with a Weck spear and found to be secure. Several drops of ophthalmic povidone-iodine 5% were then applied to the eye followed by two drops of Imprimis combination prednisolone/moxifloxacin/nepafenac solution. The drapes were removed and a clear plastic protective eye shield was placed over the eye. The patient was then returned to Same Day Surgery in stable condition.
[2019-12-04 08:38] VITALS: BP 134/80; PULSE 94; RESP 18; TEMP 36.1; O2SAT 96
== END 2019-12-04 08:54 | disposition home or self-care (01) ==
PROVIDERS: PCP Family Medicine; Visit Provider Ophthalmology
PROC: (CPT 66984; principal; 2019-12-04 07:30)
DX: H25.012 Cortical age-related cataract, left eye (principal); H25.12 Age-related nuclear cataract, left eye; Z95.810 Presence of automatic (implantable) cardiac defibrillator; I10 Essential (primary) hypertension
CPT/HCPCS: 66984; V2632

== ENCOUNTER 2020-01-20 04:04 | Outpatient (CLI) | payer OTHER, SELFPAY ==
[2020-01-20 09:57] LABS: Anion Gap 13.2 mmol/L (3-11); BUN 23 mg/dL (7-18); CO2 23.8 mmol/L (21.0-32.0); CREATININE 1.25 mg/dL (0.70-1.30); Calcium 10.3 mg/dL (8.5-10.1); Chloride 103 mmol/L (98-107); Estimated GFR 56.31 (mL/min/1.73m2); Glucose 209 mg/dL (74-106); Potassium 3.9 mmol/L (3.5-5.1); Sodium 140 mmol/L (136-145)
== END 2020-01-20 04:24 ==
PROVIDERS: PCP Family Medicine; Visit Provider Family Medicine
DX: E11.65 Type 2 diabetes mellitus with hyperglycemia (principal)
CPT/HCPCS: 36415; 80048

== ENCOUNTER 2020-02-23 00:55 | Outpatient (CLI) | payer OTHER, SELFPAY ==
--- NOTE | 2020-02-23 08:15 | DI.CTLCSR_ITS ---
EXAM: CT CHEST LUNG CANCER SCREEN CLINICAL HISTORY: SCREENING FOR LUNG CA,FORMER SMOKER, [id number] TECHNIQUE: Imaging Protocol: Axial computed tomography images with coronal and sagittal reformatted images were created and reviewed COMPARISON: CT CT CHEST LUNG CANCER SCREEN from 02/19/2019 FINDINGS: Tracheobronchial tree: Patent where visualized. Mediastinum and Cally: No dominant adenopathy or fluid collection. Pulmonary parenchyma: No consolidation or dominant measurable mass. No architectural distortion. Ther e are old healed calcified granulomas. Lung Nodules: The 4 mm nodule in the right middle lobe is unchanged. The peripheral 4 mm nodule in t he left lingula is unchanged. No new pulmonary nodules are present. Pleura: No effusion or pneumothorax. Heart: The heart is not dilated. [id number] coronary artery calcification is present. The dual lead pacing device is stable. The aortic stent graft is unremarkable. Aorta: Thoracic aorta non-dilated.Moderate atherosclerosis. Upper abdomen: There is diverticulosis seen in the transverse colon. Bones: Degenerative changes are present. Soft Tissues: Unremarkable. IMPRESSION: Stable pulmonary nodules. Lung RADS Cat 2 - Benign Appearance / Behavior: Nodules with a very low likelihood of becoming a clin ically active cancer due to size or lack of growth Lung-RADS 1.0 CATEGORIES: Category 0 - Prior chest CT exam(s) being located for comparison. Category 1 - Annual screening in 12 months. No nodules or definitely benign nodules. Category 2 - Annual screening in 12 months. Benign appearance. Nodules with low likelihood of becomin g active cancer. Category 3 - 6-month follow-up. Probably benign. Short-term follow-up suggested. Nodules with low lik elihood of becoming active cancer. Category 4A - 3-month follow-up and CT/PET if >8 mm in size. Suspicious finding. Findings which requi re additional testing. Category 4B - Findings which require additional testing and tissue sampling. Suspicious finding. C Added to Any of the Above - History of prior lung cancer screening. S Added to Any of the Above - Significant unexpected other finding. RADIATION DOSE DELIVERED: 97.07mGy.cm Total DLP DATA REPOSITORY: All CT scans at this facility are submitted to the National Radiology Data Registry (NRDR) Dose Index Registry (DIR) with the [employer] (ACR). RADIATION OPTIMIZATION: All CT scans at this facility use at least one of these dose optimization te chniques: automated exposure control; mA and/or kV adjustment per patient size (includes targeted exa ms where dose is matched to clinical indication); or iterative reconstruction.
== END 2020-02-23 01:15 ==
PROVIDERS: PCP Family Medicine; Visit Provider Internal Medicine
DX: Z87.891 Personal history of nicotine dependence (principal); R91.8 Other nonspecific abnormal finding of lung field
CPT/HCPCS: 71271

== ENCOUNTER → 2020-05-10 11:29 | Outpatient (BNVA) | payer OTHER, SELFPAY | PROVIDERS: PCP Family Medicine; Referring Provider Family Medicine; Visit Provider Internal Medicine Cardiovascular Disease | DX: I25.10 Atherosclerotic heart disease of native coronary artery without angina pectoris (principal); I50.9 Heart failure, unspecified; I35.0 Nonrheumatic aortic (valve) stenosis; N18.31 Chronic kidney disease, stage 3a; I13.0 Hypertensive heart and chronic kidney disease with heart failure and stage 1 through stage 4 chronic kidney disease, or unspecified chronic kidney disease; J44.9 Chronic obstructive pulmonary disease, unspecified; F17.210 Nicotine dependence, cigarettes, uncomplicated | CPT/HCPCS: 99214 ==

== ENCOUNTER 2020-07-13 04:29 | Outpatient (CLI) | payer OTHER, SELFPAY ==
[2020-07-13 13:12] LABS: Anion Gap 10.2 mmol/L (3-11); BUN 21 mg/dL (7-18); CO2 27.8 mmol/L (21.0-32.0); CREATININE 1.3 mg/dL (0.70-1.30); Calcium 9.9 mg/dL (8.5-10.1); Chloride 106 mmol/L (98-107); Estimated GFR 53.82 (mL/min/1.73m2); Glucose 204 mg/dL (74-106); Potassium 4.1 mmol/L (3.5-5.1); Sodium 144 mmol/L (136-145)
== END 2020-07-13 04:30 | disposition home or self-care (01) ==
LOC: LBO 04:29
PROVIDERS: PCP Family Medicine; Visit Provider Family Medicine
DX: N18.31 Chronic kidney disease, stage 3a (principal)
CPT/HCPCS: 36415; 80048

== ENCOUNTER → 2020-11-10 12:35 | Outpatient (BNVA) | payer MEDICARE, SELFPAY | PROVIDERS: PCP Family Medicine; Referring Provider Family Medicine; Visit Provider Internal Medicine Cardiovascular Disease | DX: I25.10 Atherosclerotic heart disease of native coronary artery without angina pectoris (principal); Z95.810 Presence of automatic (implantable) cardiac defibrillator; J44.9 Chronic obstructive pulmonary disease, unspecified; I10 Essential (primary) hypertension; Z95.2 Presence of prosthetic heart valve; I50.9 Heart failure, unspecified; R06.09 Other forms of dyspnea | CPT/HCPCS: 99214 ==

== ENCOUNTER 2020-12-21 03:17 | Outpatient (CLI) | payer MEDICARE, SELFPAY ==
[2020-12-21 08:26] LABS: Abs Immature Grans 0.02 10^3/uL (0.0-0.06); Absolute Basophil Count 0.06 10^3/uL (0.0-0.2); Absolute Lymphocyte Count 2.63 10^3/uL (1.2-3.4); Absolute Monocyte Count 0.69 10^3/uL (0.1-0.8); Absolute Neutrophil Count 5.33 10^3/uL (1.2-6.7); Basophils % 0.7; Eosinophils % 2.2; HCT 49.7 % (40.0-50.0); Immature Grans % 0.2; Lymphocytes % 29.5; MCH 29.3 pg (27.0-33.0); MCHC 32.2 % (32.0-36.0); MCV 90.9 fL (80-95); MPV 9.1 fL (8.0-11.0); Monocytes % 7.7; Neutrophils % 59.7; Nucleated RBC 0 %; Platelet Count 219 10^3/uL (130-400); RBC 5.47 10^6/uL (4.36-5.78); RDW 13.7 % (11.8-14.1); RDW-SD 46.6 fL; WBC 8.93 10^3/uL (4.4-10.8)
[2020-12-21 09:30] LABS: ALT 31 U/L (16-63); AST 19 U/L (15-37)
[2020-12-21 09:31] LABS: Calculated LDL 95 mg/dL (<100); Cholesterol 161 mg/dL (<200); HDL Cholesterol 28 mg/dL (40-60); Triglyceride 193 mg/dL (<150)
== END 2020-12-21 03:18 | disposition home or self-care (01) ==
LOC: LBO 03:17
PROVIDERS: Internal Medicine Infectious Disease; PCP Family Medicine; Visit Provider Family Medicine
DX: R78.81 Bacteremia (principal); B95.61 Methicillin susceptible Staphylococcus aureus infection as the cause of diseases classified elsewhere; T82.7XXD Infection and inflammatory reaction due to other cardiac and vascular devices, implants and grafts, subsequent encounter
CPT/HCPCS: 36415; 80061; 82565; 84450; 84460; 85025

== ENCOUNTER 2021-05-03 01:31 | Outpatient (CLI) | payer MEDICARE, SELFPAY ==
--- NOTE | 2021-05-03 10:18 | DI.US_ITS ---
APPROVED REPORT EXAM: Comprehensive 2D, Doppler, and color-flow Echocardiogram Patient Location: Out-Patient Driller'S Assistant: Celia Giang RDCS (AE) Indications: Heart Failure, CAD, CHF, Dyspnea, TAVT Other Information Study Quality: Adequate Conclusion Normal left ventricular wall thickness and chamber size. Estimated ejection fraction is approximatel y 50%. LV function appears somewhat dyssynchronous and suggestive of inferior posterior wall motion abnormalities Normal right ventricular size and systolic function Both atria are normal in size Device lead noted in the right heart There is a bioprosthetic aortic valve. Mean gradient is 13.7 mmHg. There is no aortic regurgitation Mitral annular calcification with moderate mitral stenosis, trace mitral regurgitation Normal tricuspid valve with trace regurgitation. Right ventricular systolic pressure could not be es timated Wall motion Left Ventricle The left ventricle is normal size. Left ventricular systolic function is mildly decreased. Mild bina ntric left ventricular hypertrophy. LV contraction appears somewhat dyssynchronous There is no ventri cular septal defect visualized. LVEF is 50%. Right Ventricle The right ventricle is normal size. Device lead is present in the right ventricle. Atria The left atrium size is normal. The right atrium size is normal. The interatrial septum is intact wit h no evidence for an atrial septal defect. Aortic Valve No aortic regurgitation is present. The prosthetic aortic TAVR isl visualized. Mitral Valve Severe mitral annular calcification. Moderate mitral stenosis. Trace mitral regurgitation. Tricuspid Valve The tricuspid valve is normal in structure. There is no tricuspid valve stenosis. Trace tricuspid reg urgitation. Unable to assess PA pressure. Pulmonic Valve Pulmonic valve is not well visualized. There is no pulmonic valvular stenosis. There is no pulmonic v alvular regurgitation. Great Vessels The aortic root is normal in size. The ascending aorta is normal in size. Aortic arch is not well vis ualized. IVC is normal in size and collapses >50% with inspiration. Pericardium There is no pericardial effusion. There is no pleural effusion. 2D Dimensions IVSD d PLAX 1.20 cm M: 0.6-1.2 LV Vol A2C d MOD 164.0 mL LVPW d PLAX 1.26 cm M: 0.6 - 1.2 LV Vol A4C d MOD 141.4 mL LVID d PLAX 5.09 cm M: 4.2 - 5.8 LA vol/ BSA A2C s A-L 34.6 mL/m2 LVDs 4.10 cm M: 2.5 - 4.0 LA vol/ BSA A4C s A-L 16.5 mL/m2 Ao Root d 2.29 cm M: 3.1 - 3.7 LA Vol/ BSA Biplane s A-L 26.1 mL/m2 RA Area A4C 15.37 cm2 LA Area A4C s MOD 13.15 cm2 RA Vol/ BSA A4C s A-L 19.8 mL/m2 LA Area A2C s MOD 20.88 cm2 Ao Asc Diam d 2.94 cm M: 2.6 - 3.4 LV EF A4C MOD 40.2 % LV EF Teichholz 39.0 % LV EF A2C MOD 35.6 % LVEF (Phillips's) 38.28 % M: 52 - 72 LV EF Biplane MOD 38.3 % LV Volume 116.48 mL M: 62 - 150 SV 59.06 mL LV Volume Index 59.42 mL/m2 M: 34 - 74 SV Index 30.11 mL/m2 LV Vol Biplane MOD 154.3 mL FS 19.00 % M-Mode TAPSE 1.41 cm (M/F) >1.7 LV Diastology MV E Vmax 1.69 (0.4-1.3 m/s) Aortic Valve LVOT Area 2.60 cm2 AoV Area Vmax 1.21 cm2 LVOT Vmax 1.13 m/s AoV Area/ BSA (Vmax) 0.62 cm2/m2 LVOT Mean Damien. 0.85 m/s DOMINICK Mean Damien. 1.26 cm2 LVOT Peak Grad 5.1 mmHg DOMINICK Mean Damien. Index 0.64 cm2/m2 LVOT Mean Grad 3.3 mmHg LVOT VTI 0.210 m LVOT Diam s 1.80 cm AoV Vmax 2.43 m/s Velocity Ratio 0.46 AoV Mean Damien. 1.74 m/s AoV Peak Grad 23.5 mmHg LVOT SV 54.63 mL AoV Mean Grad 13.7 mmHg AoV VTI 0.378 m AoV Area VTI 1.44 cm2 AoV Area/ BSA (VTI) 0.74 cm/m2 Mitral Valve MV DT 123 (160-240 msec) MV PHT 36 msec MV Area PHT 6.16 cm2 MV VTI 0.369 m MV Area VTI 1.48 (4.0-6.0 cm2) Pulmonary Valve PV Vmax 0.89 (0.5-1.5 m/s) RVOT Peak Gr. 2.72 mmHg PV Peak Grad 3.2 mmHg RVOT Mean Gr. 1.40 mmHg PV Mean Grad 1.7 mmHg RVOT VTI 0.128 m PV VTI 0.179 m RVOT Vmax 0.82 m/s
== END 2021-05-03 01:51 ==
PROVIDERS: PCP Family Medicine; Visit Provider Internal Medicine Cardiovascular Disease
DX: I25.10 Atherosclerotic heart disease of native coronary artery without angina pectoris (principal); I50.9 Heart failure, unspecified; R06.09 Other forms of dyspnea
CPT/HCPCS: 93306

== ENCOUNTER → 2021-05-11 12:51 | Outpatient (BNVA) | payer MEDICARE, SELFPAY | PROVIDERS: PCP Family Medicine; Visit Provider Internal Medicine Cardiovascular Disease | DX: I25.10 Atherosclerotic heart disease of native coronary artery without angina pectoris (principal); I50.9 Heart failure, unspecified; J44.9 Chronic obstructive pulmonary disease, unspecified; R06.09 Other forms of dyspnea; Z95.2 Presence of prosthetic heart valve; Z95.810 Presence of automatic (implantable) cardiac defibrillator | CPT/HCPCS: 99214; 99213 ==

== ENCOUNTER 2021-06-02 01:11 | Outpatient (CLI) | payer MEDICARE, SELFPAY ==
[2021-06-02] MEDS: Albuterol HFA 18 GM 200 PUFF INH IH (11:08)
[2021-06-02] MEDS: Inhaler, Assist Device 1 EACH MC (11:09)
--- NOTE | 2021-06-02 15:08 | W.PFT ---
Date of service: 06/02/21 Time of Service: 15:08 Pulmonary Function Test Result Requesting Provider Yrn Indications: COPD Impression 6MWT Baseline sat = 100%. Lowest saturation = 91%. DIstance = 800 feet No O2 added. Clinical Correlation therefore is recommended.
== END 2021-06-02 01:12 | disposition home or self-care (01) ==
LOC: RT 01:12
PROVIDERS: PCP Family Medicine; Visit Provider Student in an Organized Health Care Education/Training Program
DX: J44.9 Chronic obstructive pulmonary disease, unspecified (principal); R06.09 Other forms of dyspnea; R05.8 Other specified cough; Z87.891 Personal history of nicotine dependence
CPT/HCPCS: 94060; 94618; 94726; 94729

== ENCOUNTER 2021-06-07 01:20 | Outpatient (CLI) | payer MEDICARE, SELFPAY ==
--- NOTE | 2021-06-07 10:22 | DI.CTLCSR_ITS ---
Exam(s) CT CHEST LUNG CANCER SCREEN EXAM: CT CHEST LUNG CANCER SCREEN CLINICAL HISTORY: Screening for lung cancer,FORMER SMOKER, [id number] TECHNIQUE: CT examination of the chest was performed utilizing low-dose lung cancer screening protoc ol. COMPARISON: CT CT CHEST LUNG CANCER SCREEN from 02/23/2020 FINDINGS: Images obtained through the upper abdomen show unremarkable appearance of visualized portions of the liver, spleen, pancreas, adrenals, and kidneys. Cardiac pacemaker and aortic graft noted as well as coronary calcifications. There is no mediastinal or hilar adenopathy. Mediastinal vascular structures appear intact by noncon trast criteria. Tracheobronchial tree appears intact. No pleural effusion or pleural-based mass. The lungs predominantly clear, previously noted 4-5 millimeter mean diameter nodules of left and righ t lung are unchanged on today's examination in comparison with prior CT of February 2020.. IMPRESSION: Lung RADS Cat 2 - Benign Appearance / Behavior: Nodules with a very low likelihood of becoming a clin ically active cancer due to size or lack of growth Continue annual screening with LDCT in 12 months. Lung-RADS 1.0 CATEGORIES: Category 0 - Prior chest CT exam(s) being located for comparison. Category 1 - Annual screening in 12 months. No nodules or definitely benign nodules. Category 2 - Annual screening in 12 months. Benign appearance. Nodules with low likelihood of becomin g active cancer. Category 3 - 6-month follow-up. Probably benign. Short-term follow-up suggested. Nodules with low lik elihood of becoming active cancer. Category 4A - 3-month follow-up and CT/PET if >8 mm in size. Suspicious finding. Findings which requi re additional testing. Category 4B - Findings which require additional testing and tissue sampling. Suspicious finding. Category 4X - Category 3 or 4 nodules with additional features or imaging findings that increases the suspicion of malignancy. Modifier S- Potentially clinically significant finding. (Non lung cancer) RADIATION DOSE DELIVERED: 87.47mGy.cm Total DLP 1.84mGy CTDIvol 87.47mGy.cm Total DLP !Error CTDIvol RADIATION OPTIMIZATION: All CT scans at this facility use at least one of these dose optimization te chniques: automated exposure control; mA and/or kV adjustment per patient size (includes targeted exa ms where dose is matched to clinical indication); or iterative reconstruction.
== END 2021-06-07 01:40 ==
PROVIDERS: PCP Family Medicine; Visit Provider Student in an Organized Health Care Education/Training Program
DX: Z12.2 Encounter for screening for malignant neoplasm of respiratory organs (principal); Z87.891 Personal history of nicotine dependence; Z95.0 Presence of cardiac pacemaker; R91.8 Other nonspecific abnormal finding of lung field
CPT/HCPCS: 71271

== ENCOUNTER 2021-11-09 08:58 | Outpatient (CLI) | payer MEDICARE, SELFPAY ==
--- NOTE | 2021-11-09 08:45 | RT.EKG_ITS ---
APPROVED REPORT Exam: Resting ECG Reason for Exam: CAD Patient Location: O HR:92 bpm ECG Measurements Heart Rate 92 AXIS WV 167 P 56 QRSd 188 QRS 165 QT 455 T -6 QTc 563 Conclusion Atrial-sensed ventricular-paced rhythm...ventricular pacing tracks p-waves No further analysis attempted due to paced rhythm
== END 2021-11-09 08:59 | disposition home or self-care (01) ==
LOC: DI.CARD 08:59
PROVIDERS: PCP Family Medicine; Visit Provider Internal Medicine Cardiovascular Disease
DX: I25.10 Atherosclerotic heart disease of native coronary artery without angina pectoris (principal); I50.9 Heart failure, unspecified; R94.31 Abnormal electrocardiogram [ECG] [EKG]
CPT/HCPCS: 93010

== ENCOUNTER → 2021-11-09 12:47 | Outpatient (BNVA) | payer MEDICARE, SELFPAY | PROVIDERS: PCP Family Medicine; Visit Provider Internal Medicine Cardiovascular Disease | DX: Z95.2 Presence of prosthetic heart valve (principal); R78.81 Bacteremia; Z95.810 Presence of automatic (implantable) cardiac defibrillator; I25.10 Atherosclerotic heart disease of native coronary artery without angina pectoris; J44.9 Chronic obstructive pulmonary disease, unspecified; I10 Essential (primary) hypertension; I50.9 Heart failure, unspecified; R06.09 Other forms of dyspnea | CPT/HCPCS: 93005; 99214 ==

== ENCOUNTER 2021-12-11 12:57 | Outpatient (CLI) | payer MEDICARE, SELFPAY ==
[2021-12-11 13:47] LABS: Anion Gap 11.7 mmol/L (3-11); BUN 17 mg/dL (7-18); CO2 28.3 mmol/L (21.0-32.0); CREATININE 1.1 mg/dL (0.70-1.30); Calcium 10.5 mg/dL (8.5-10.1); Chloride 104 mmol/L (98-107); Estimated GFR 69.57 (mL/min/1.73m2); Glucose 127 mg/dL (74-106); Potassium 3.6 mmol/L (3.5-5.1); Sodium 144 mmol/L (136-145)
== END 2021-12-11 12:58 | disposition home or self-care (01) ==
LOC: LBO 12:58
PROVIDERS: PCP Family Medicine; Visit Provider Family Medicine
DX: N18.30 Chronic kidney disease, stage 3 unspecified (principal)
CPT/HCPCS: 36415; 80048

== ENCOUNTER 2022-04-04 09:46 | Outpatient (CLI) | payer MEDICARE, SELFPAY | END 2022-04-04 09:47 | disposition home or self-care (01) | LOC: DI.CARD 09:47 | PROVIDERS: PCP Family Medicine; Visit Provider Physician Assistant | CPT/HCPCS: 93010 ==

== ENCOUNTER → 2022-05-10 13:29 | Outpatient (BNVA) | payer MEDICARE, SELFPAY | PROVIDERS: PCP Family Medicine; Visit Provider Internal Medicine Cardiovascular Disease | DX: J44.9 Chronic obstructive pulmonary disease, unspecified (principal); R06.09 Other forms of dyspnea; Z99.81 Dependence on supplemental oxygen; Z95.810 Presence of automatic (implantable) cardiac defibrillator; Z95.2 Presence of prosthetic heart valve | CPT/HCPCS: 99214 ==

== ENCOUNTER 2022-06-18 01:48 | Outpatient (CLI) | payer MEDICARE, SELFPAY ==
--- NOTE | 2022-06-18 06:45 | DI.CTLCSR_ITS ---
Exam(s) CT CHEST LUNG CANCER SCREEN EXAM: CT CHEST LUNG CANCER SCREEN CLINICAL HISTORY: Screening for lung cancer,FORMER SMOKER, [id number] TECHNIQUE: Imaging Protocol: Axial computed tomography images with coronal and sagittal reformatted images were created and reviewed COMPARISON: CT CT CHEST LUNG CANCER SCREEN from 02/23/[address] CHEST LUNG CANCER SCREEN from 06/07/2021 FINDINGS: Tracheobronchial tree: Patent where visualized. Pulmonary parenchyma: There are calcified granuloma present. No consolidating infiltrates. No areas of architectural distortion. Lung Nodules: The right middle lobe and left lingular nodules are stable. No new noncalcified pulmon isauro nodules are present. Mediastinum and Cally: No dominant adenopathy or fluid collection. The esophagus is unremarkable. Thyroid gland: Unremarkable. Lymph nodes: Unremarkable. Pleura: No effusion or pneumothorax. Heart: The heart is not dilated. There is an aortic valve replacement. Coronary artery calcification s and/or stents are again noted. No pericardial effusion.There is a cardiac pacing device. Aorta: Thoracic aorta non-dilated.Atherosclerosis. Upper abdomen: Colonic diverticulosis. Soft Tissues: Unremarkable. Bones: Within normal limits for the patient's age. IMPRESSION: Stable pulmonary nodules. Lung RADS Cat 2 - Benign Appearance / Behavior: Nodules with a very low likelihood of becoming a clin ically active cancer due to size or lack of growth Lung-RADS 1.0 CATEGORIES: Category 0 - Prior chest CT exam(s) being located for comparison. Category 1 - Annual screening in 12 months. No nodules or definitely benign nodules. Category 2 - Annual screening in 12 months. Benign appearance. Nodules with low likelihood of becomin g active cancer. Category 3 - 6-month follow-up. Probably benign. Short-term follow-up suggested. Nodules with low lik elihood of becoming active cancer. Category 4A - 3-month follow-up and CT/PET if >8 mm in size. Suspicious finding. Findings which requi re additional testing. Category 4B - Findings which require additional testing and tissue sampling. Suspicious finding. Category 4X - Category 3 or 4 nodules with additional features or imaging findings that increases the suspicion of malignancy. Modifier S- Potentially clinically significant finding. (Non lung cancer) RADIATION DOSE DELIVERED: 88.66mGy.cm Total DLP 88.66mGy.cmTotal DLP DATA REPOSITORY: All CT scans at this facility are submitted to the National Radiology Data Registry (NRDR) Dose Index Registry (DIR) with the [employer] (ACR). RADIATION OPTIMIZATION: All CT scans at this facility use at least one of these dose optimization te chniques: automated exposure control; mA and/or kV adjustment per patient size (includes targeted exa ms where dose is matched to clinical indication); or iterative reconstruction.
== END 2022-06-18 02:08 ==
LOC: DI 01:50
PROVIDERS: PCP Family Medicine; Visit Provider Physician Assistant Surgical
DX: Z87.891 Personal history of nicotine dependence (principal); J44.9 Chronic obstructive pulmonary disease, unspecified
CPT/HCPCS: 71271

== ENCOUNTER 2022-07-12 19:18 | Emergency (ER) | payer MEDICARE, SELFPAY ==
[2022-07-12] VITALS (18 sets, daily range): BP systolic 110–179; BP diastolic 66–120; PULSE 83–94; RESP 15–39; TEMP 36.5; O2SAT 95–99
[2022-07-12 19:57] LABS: Abs Immature Grans 0.03 10^3/uL (0.0-0.06); Absolute Basophil Count 0.06 10^3/uL (0.0-0.2); Absolute Eosinophil Count 0.16 10^3/uL (0.0-0.7); Absolute Lymphocyte Count 3.55 10^3/uL (1.2-3.4); Absolute Monocyte Count 0.82 10^3/uL (0.1-0.8); Basophils % 0.6; Eosinophils % 1.5; HCT 47.8 % (40.0-50.0); Immature Grans % 0.3; Lymphocytes % 33.1; MCH 30.5 pg (27.0-33.0); MCHC 33.5 % (32.0-36.0); MCV 91 fL (80-95); Monocytes % 7.6; Neutrophils % 56.9; Platelet Count 272 10^3/uL (130-400); RBC 5.24 10^6/uL (4.36-5.78); RDW 13.4 % (11.8-14.1); RDW-SD 45.3 fL; WBC 10.72 10^3/uL (4.4-10.8)
[2022-07-12 20:06] LABS: INR 1.1 (0.9-1.1); Prothrombin Time 10.9 sec (9.3-11.0)
[2022-07-12 20:09] LABS: ALT 34 U/L (16-63); AST 29 U/L (15-37); Albumin 4.9 g/dL (3.4-5.0); Alkaline Phosphatase 39 U/L (46-116); Anion Gap 10.6 mmol/L (3-11); BUN 30 mg/dL (7-18); Bilirubin, Total 0.7 mg/dL (0.2-1.0); CO2 27.4 mmol/L (21.0-32.0); CREATININE 1.2 mg/dL (0.70-1.30); Calcium 10.6 mg/dL (8.5-10.1); Chloride 104 mmol/L (98-107); Estimated GFR 62.29 (mL/min/1.73m2); Glucose 105 mg/dL (74-106); Potassium 3.9 mmol/L (3.5-5.1); Sodium 142 mmol/L (136-145); Total Protein 8.6 g/dL (6.4-8.2)
[2022-07-12] MEDS: Labetalol 100 MG/20 ML VIAL 10 MG IVP (20:09)
--- NOTE | 2022-07-12 20:20 | NUR.NOTE ---
Nursing Note: only 2.5mg (of prescribed 10mg) administered after it was noted that the PT was no longer hypertensive during administration.
--- NOTE | 2022-07-12 20:36 | W.ED.GENAD ---
Discharge Plan Disposition Patient Disposition: Home Condition: Stable Discharge Details Clinical Impression: Epistaxis, Hypertension Primary Care Provider: Tien Galicia ED Provider: Anna Noland Home Meds and New Rx's Prescriptions: Continued triamcinolone acetonide 0.1 % cream 1 applic topical BID Qty: 30 5RF Rx Instructions: apply to feet daily cyclobenzaprine 10 mg tablet 10 mg PO TID PRN (Reason: muscle spasm) Qty: 270 3RF Rx Instructions: 1 tablet in the morning and 2 tablets in the evening, as needed, for muscle spasms albuterol sulfate [Ventolin HFA] 90 mcg/actuation HFA aerosol inhaler 2 puff inhalation 6XD Qty: 8.5 6RF cephalexin 500 mg capsule 500 mg PO BID Qty: 180 3RF (DME) Blood Glucose Test Strip 1 ea Miscellaneous TID Qty: 300 6RF Rx Instructions: Dx: E11.9 to keep HA1C <7 , test TID oxycodone 10 mg tablet 10 mg PO BID MDD 30 mg PRN (Reason: pain) Qty: 58 0RF Rx Instructions: May take an additional tab daily up to twice a month, if needed oxycodone 10 mg tablet 10 mg PO BID MDD 30 mg PRN (Reason: pain) Qty: 58 0RF Rx Instructions: May taken an additional tablet daily up to twice a month, if needed oxycodone 10 mg tablet 10 mg PO BID MDD 30 mg PRN (Reason: pain) Qty: 58 0RF Rx Instructions: Can take an occasional extra tab per day up to twice a month, if needed aspirin 81 MG tablet,delayed release (DR/EC) 81 mg PO DAILY (DME) nebulizers [Devilbiss Disposable Nebulizer] 1 EACH misc 1 ea Miscellaneous QID Qty: 1 Rx Instructions: Dx:R06.09 ARDS albuterol sulfate 2.5 mg /3 mL (0.083 %) solution for nebulization 2.5 mg UPD Q2H PRN PRN (Reason: shortness of breath or wheezing) Qty: 180 3RF (DME) pen needle, diabetic [BD Ultra-Fine Rebecca Pen Needle] 32 gauge x 5/32 needle 1 ea Miscellaneous DAILY 30 Days Qty: 200 6RF Rx Instructions: To keep HbA1c below 6.5% Ozempic 1 mg/dose (2 mg/1.5 mL) pen injector 1 mg subcut QWEEK 28 Days Qty: 3 11RF glipizide 5 mg tablet 5 mg PO BID Qty: 180 3RF metformin 500 mg tablet 1,000 mg PO BID Qty: 360 3RF atorvastatin 40 mg tablet 40 mg PO DAILY Qty: 90 3RF Rx Instructions: Take with 20 mg tabs for a daily total of 60 mg fenofibrate nanocrystallized 145 mg tablet 145 mg PO DAILY Qty: 90 3RF lisinopril 40 mg tablet 80 mg PO DAILY Qty: 180 3RF carvedilol 12.5 mg tablet 12.5 mg PO BID Qty: 180 3RF colchicine 0.6 mg tablet 0.6 mg PO BID PRN (Reason: gout attack) Qty: 30 3RF furosemide 20 mg tablet 20 mg PO DAILY Qty: 90 3RF fluticasone propionate [Flonase Allergy Relief] 50 mcg/actuation spray,suspension 2 spray NS DAILY Qty: 1 6RF Rx Instructions: each nostril once daily for rhinnitis mirtazapine [Remeron] 15 mg tablet 15 mg PO QPM Qty: 90 3RF (DME) lancets [Accu-Chek Softclix Lancets] Misc See Rx Instructions .ROUTE .MEDSUPPLY Qty: 100 6RF Rx Instructions: Dx: E11.9, to keep HbA1c <7%, test TID Levemir FlexPen 100 unit/mL (3 mL) insulin pen See Rx Instructions subcut BID MDD 49 units Qty: 21 6RF Rx Instructions: 19 units QAM, 24 units QHS, can take up to 30 units after a large meal subcutaneously twice a day; nitroglycerin [Nitrostat] 0.4 mg tablet, sublingual 0.4 mg SL PRN Qty: 30 3RF Trelegy Ellipta 100-62.5-25 mcg blister with device See Rx Instructions .ROUTE .COMPLEX Qty: 60 12RF Dose Instruction: INHALE 1 PUFF BY MOUTH DAILY Rx Instructions: INHALE 1 PUFF BY MOUTH DAILY amlodipine 10 mg tablet 10 mg PO DAILY Qty: 90 3RF Patient Comments: Pt. states,I'm no longer taking this medication. Rx Instructions: lower BP <140/85 acetaminophen [Tylenol] 325 mg Tablet 325 mg PO Q4H PRN Rx Instructions: 1-2 tabs Discharge Instructions Instructions: Nosebleed (ED), Hypertension (ED) Additional Instructions: Continue to take all your blood pressure medication as previously prescribed. If you are able to take a log of your blood pressures and bring them to your follow-up appointment for medication adjustment if needed Use nasal saline to keep your nose moist and hydrated as the oxygen may be drying to the mucosa Referrals: Tien Galicia DO [Primary Care Provider] - Discharge Data Discharge Date/Time-TO BE ENTERED AT DEPARTURE: 07/12/22 21:31 Medical Decision Making <Anna Noland NP - Last Filed: 07/14/22 15:26> 77-year-old male patient no history of nosebleeds, wears chronic oxygen at home, not on anticoagulation reports intermittent nosebleeding all day long. Could not control it so called EMS EMS found him hypertensive and transported him to the emergency department nose clip is intact there is no bleeding. Blood pressure on arrival 179/120. He was given 2.5 mg of IV labetalol and his blood pressure has now normalized and has remained at 110s over 80. He denies any symptoms. There has been no bleeding since arrival. Labs have been checked and all within normal limits including H&H platelets liver function and coags. He will be provided nasal saline and advised to inquire about humidifying his oxygen. He should continue to monitor his blood pressures at home and bring log for follow-up appointment for possible medication adjustments if needed. In the department blood pressure remains well controlled. He is stable and ready for discharge to home. No changes in medication follow-up outpatient with primary care Medical Records Medical records reviewed: Yes I reviewed the patient's medical records. Lab Data Lab results reviewed: Yes I reviewed the patient's lab results. Lab results narrative: Laboratory Results - last 24 hr 07/12/22 07/12/22 07/12/22 19:45 19:45 19:45 WBC 10.72 RBC 5.24 Hgb 16.0 Hct 47.8 MCV 91 MCH 30.5 MCHC 33.5 RDW 13.4 Plt Count 272 MPV 9.0 Immature Gran % 0.3 Neutrophils % 56.9 Lymphocytes % 33.1 Monocytes % 7.6 Eosinophils % 1.5 Basophils % 0.6 Nucleated RBC % 0.0 Absolute Neutrophils 6.10 Absolute Lymphocytes 3.55 H Absolute Monocytes 0.82 H Absolute Eosinophils 0.16 Absolute Basophils 0.06 PT 10.9 INR 1.1 Sodium 142 Potassium 3.9 Chloride 104 Carbon Dioxide 27.4 Anion Gap 10.6 BUN 30 H Creatinine 1.2 Est GFR (CKD-EPI 2020) 62.29 Glucose 105 Calcium 10.6 H Total Bilirubin 0.7 AST 29 ALT 34 Alkaline Phosphatase 39 L Total Protein 8.6 H Albumin 4.9 <Siddhartha Montez MD - Last Filed: 07/25/22 17:32> Note: I did not evaluate this patient. The patient was seen, evaluated, treated and dispositioned independently by BRITTANIE Noland. HPI <Anna Noland NP - Last Filed: 07/14/22 15:26> General Mode of arrival: EMS. Date/Time Provider Initiated Documentation: 07/12/22 19:31. Limitations to Documentation: no limitations. Information obtained by: patient. HPI Narrative: Is a 77-year-old male patient complex medical history but not on any anticoagulation is on chronic oxygen, states he was in his usual state of health but this morning woke up with a bloody nose. He states he has had this issue intermittently throughout the day he has taken all his blood pressure medications as directed. He reports normally his blood pressure is very well controlled Related Data Home Medications Medication Instructions Recorded Confirmed aspirin 81 mg tablet,delayed 81 mg PO DAILY 05/05/12 07/20/22 release nebulizers (Devilbiss Disposable #1 ea 11/14/15 07/20/22 Nebulizer misc) acetaminophen 325 mg tablet 325 mg PO Q4H PRN 05/16/18 07/20/22 (Tylenol) albuterol sulfate 2.5 mg/3 mL 2.5 mg (3 mL) UPD Q2H PRN PRN 09/26/18 07/20/22 (0.083 %) solution for nebulization shortness of breath or wheezing #180 mL cyclobenzaprine 10 mg tablet 10 mg PO TID PRN muscle spasm #270 10/07/20 07/20/22 tab-caps albuterol sulfate 90 mcg/actuation 2 puff inhalation 6XD #8.5 grams 06/23/21 07/20/22 aerosol inhaler (Ventolin HFA) blood sugar diagnostic (Blood #300 strips 06/23/21 07/20/22 Glucose Test strips) cephalexin 500 mg capsule 500 mg PO BID #180 caps 06/23/21 07/20/22 pen needle, diabetic 32 gauge x #200 ea 09/04/21 07/20/22 (BD Ultra-Fine Rebecca Pen Needle) semaglutide 1 mg/dose (2 mg/1.5 1 mg (0.75 mL) subcut QWEEK 28 09/28/21 07/20/22 mL) subcutaneous pen injector days #3 mL (Ozempic) atorvastatin 40 mg tablet 40 mg PO DAILY #90 tabs 10/20/21 07/20/22 fenofibrate nanocrystallized 145 145 mg PO DAILY #90 tabs 10/20/21 07/20/22 mg tablet glipizide 5 mg tablet 5 mg PO BID #180 tabs 10/20/21 07/20/22 metformin 500 mg tablet 1,000 mg PO BID #360 tabs 10/20/21 07/20/22 carvedilol 12.5 mg tablet 12.5 mg PO BID #180 tabs 12/18/21 07/20/22 lisinopril 40 mg tablet 80 mg PO DAILY #180 tabs 12/18/21 07/20/22 colchicine 0.6 mg tablet 0.6 mg PO BID PRN gout attack #30 12/29/21 07/20/22 tabs furosemide 20 mg tablet 20 mg PO DAILY edema or greater 01/18/22 07/20/22 than 7 lb weight gain in one week #90 tabs triamcinolone acetonide 0.1 % 1 applic topical BID #30 grams 03/22/22 07/20/22 topical cream fluticasone propionate 50 2 spray NS DAILY #1 unit 04/03/22 07/20/22 mcg/actuation nasal spray,suspension (Flonase Allergy Relief) mirtazapine 15 mg tablet (Remeron) 15 mg PO QPM #90 tabs 04/12/22 07/20/22 lancets (Accu-Chek Softclix #100 ea 04/27/22 07/20/22 Lancets) insulin detemir U-100 100 unit/mL See Rx Instructions subcut BID #21 05/03/22 07/20/22 (3 mL) subcutaneous pen (Levemir mL FlexPen) nitroglycerin 0.4 mg sublingual 0.4 mg sublingual PRN chest pain 05/17/22 07/20/22 tablet (Nitrostat) #30 tabs oxycodone 10 mg tablet 10 mg PO BID PRN pain #58 tabs 06/15/22 07/20/22 oxycodone 10 mg tablet 10 mg PO BID PRN pain #58 tabs 06/15/22 07/20/22 oxycodone 10 mg tablet 10 mg PO BID PRN pain #58 tabs 06/15/22 07/20/22 fluticasone fur. 100 mcg-umeclid See Rx Instructions .Route 07/02/22 07/20/22 62.5 mcg-vilant 25 mcg .COMPLEX #60 ea inhalat.powder (Trelegy Ellipta) amlodipine 10 mg tablet 10 mg PO DAILY #90 tab-caps 07/05/22 07/20/22 Previous Rx's Medication Instructions Recorded albuterol sulfate 2.5 mg/3 mL 2.5 mg (3 mL) UPD Q2H PRN PRN 09/26/18 (0.083 %) solution for nebulization shortness of breath or wheezing #180 mL cyclobenzaprine 10 mg tablet 10 mg PO TID PRN muscle spasm #270 10/07/20 tab-caps albuterol sulfate 90 mcg/actuation 2 puff inhalation 6XD #8.5 grams 06/23/21 aerosol inhaler (Ventolin HFA) blood sugar diagnostic (Blood #300 strips 06/23/21 Glucose Test strips) cephalexin 500 mg capsule 500 mg PO BID #180 caps 06/23/21 pen needle, diabetic 32 gauge x #200 ea 09/04/21 (BD Ultra-Fine Rebecca Pen Needle) semaglutide 1 mg/dose (2 mg/1.5 1 mg (0.75 mL) subcut QWEEK 28 09/28/21 mL) subcutaneous pen injector days #3 mL (Ozempic) atorvastatin 40 mg tablet 40 mg PO DAILY #90 tabs 10/20/21 fenofibrate nanocrystallized 145 145 mg PO DAILY #90 tabs 10/20/21 mg tablet glipizide 5 mg tablet 5 mg PO BID #180 tabs 10/20/21 metformin 500 mg tablet 1,000 mg PO BID #360 tabs 10/20/21 carvedilol 12.5 mg tablet 12.5 mg PO BID #180 tabs 12/18/21 lisinopril 40 mg tablet 80 mg PO DAILY #180 tabs 12/18/21 colchicine 0.6 mg tablet 0.6 mg PO BID PRN gout attack #30 12/29/21 tabs furosemide 20 mg tablet 20 mg PO DAILY edema or greater 01/18/22 than 7 lb weight gain in one week #90 tabs triamcinolone acetonide 0.1 % 1 applic topical BID #30 grams 03/22/22 topical cream fluticasone propionate 50 2 spray NS DAILY #1 unit 04/03/22 mcg/actuation nasal spray,suspension (Flonase Allergy Relief) mirtazapine 15 mg tablet (Remeron) 15 mg PO QPM #90 tabs 04/12/22 lancets (Accu-Chek Softclix #100 ea 04/27/22 Lancets) insulin detemir U-100 100 unit/mL See Rx Instructions subcut BID #21 05/03/22 (3 mL) subcutaneous pen (Levemir mL FlexPen) nitroglycerin 0.4 mg sublingual 0.4 mg sublingual PRN chest pain 05/17/22 tablet (Nitrostat) #30 tabs oxycodone 10 mg tablet 10 mg PO BID PRN pain #58 tabs 06/15/22 oxycodone 10 mg tablet 10 mg PO BID PRN pain #58 tabs 06/15/22 oxycodone 10 mg tablet 10 mg PO BID PRN pain #58 tabs 06/15/22 fluticasone fur. 100 mcg-umeclid See Rx Instructions .Route 07/02/22 62.5 mcg-vilant 25 mcg .COMPLEX #60 ea inhalat.powder (Trelegy Ellipta) amlodipine 10 mg tablet 10 mg PO DAILY #90 tab-caps 07/05/22 Allergies Allergy/AdvReac Type Severity Reaction Status Date / Time codeine AdvReac Intermediate GI Upset Verified 07/20/22 09:00 gabapentin AdvReac Intermediate Dizziness/L Verified 07/20/22 09:00 ightheade General Stated Complaint: [facility] HOWARD: 3 PFSH <Anna Noland NP - Last Filed: 07/14/22 15:26> All Active Problems (Updated 07/20/22 @ 09:21 by Tien Galicia DO) Hypertension (Chronic) ASCVD (arteriosclerotic cardiovascular disease) (Acute) Toe deformity (Acute) Neuropathy (Acute) Nail dystrophy (Acute) COPD (chronic obstructive pulmonary disease) (Chronic) Pulmonary nodules (Acute) Obstructive sleep apnea syndrome (Chronic ~2016) Personal history of nicotine dependence (Acute) History of transcatheter aortic valve replacement (TAVR) (Acute) Diabetes mellitus type II, controlled (Chronic) Advance directive on file (Acute) CHF (congestive heart failure) (Chronic) Chest pain (Acute) Sciatica of left side (Acute 03/26/16) Dermatitis (Acute 02/08/11) Chronic kidney disease (CKD) stage G3a/A1, moderately decreased glomerular filtration rate (GFR) between 45-59 mL/min/1.73 square meter and albuminuria creatinine ratio less than 30 mg/g (Acute 05/24/17) Biventricular ICD (implantable cardioverter-defibrillator) in place (Acute) Diverticulosis (Acute) 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 Left L3 radiculopathy: Pain clinic injec 09/2016. Left lumbar radiculopathy (Chronic 10/26/16) s/p Left L3 steroid inj 09/2016 Dr Olsen Hypertriglyceridemia (Chronic 12/31/14) Distal paresthesia (Chronic 02/16/14) nocturnal warm feelings both feet began about 11/2013, ?early peripheral neuropathy DM neuro manif type II (Chronic) Chronic pain disorder (Chronic 10/26/16) multiple sources; s/p Chronic Pain workshop [facility], s/p PT; s/p [place] [facility] Chronic obstructive pulmonary disease (Chronic 01/21/17) Dr Wright 12/201601/02/19 F/U with Dr Ibrahim Lumbar back pain with radiculopathy affecting left lower extremity (Chronic) Neuropathy, lateral femoral cutaneous nerve (Chronic) Diabetes mellitus, type II (Chronic) a. poor control b. recent self hydration with two 2 L bottles of gingerale Hypertension (Chronic) Hyperlipidemia (Chronic) Obesity (Chronic) Peripheral neuropathy (Chronic) Weakness (Chronic 04/16/14) Medical History (Updated 07/20/22 @ 09:21 by Tien Galicia DO) Acute gastroenteritis Acute kidney injury superimposed on chronic kidney disease pt. 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 TYPE B INFLUENZA s/p mechanical ventilation (04/16/14) s/p respiratory failure (04/16/14) a. secondary to influenza B and ARDS, requiring mechanical ventilation for four days, then extubated, reintubated and required another four days of mechanical ventilation, now on room air Sciatica Surgical History Biopsy Skin of left orthodox (12/10/14) Dr. Kermit Edwards Final pathologic diagnosis-Sebottheic keratosis Biventricular ICD (implantable cardioverter-defibrillator) in place (01/03/18) Central line for TPN (03/31/14) with pneumonia Cortical cataract of right eye (11/20/19) History of cataract surgery Nuclear sclerotic cataract of left eye (~12/04/19) S/P TAVR (transcatheter aortic valve replacement) (~09/2017) Family History Mother Stroke Father , CHF at age 88. CHF (congestive heart failure) Fluid overload Hypertension Social History Smoking/Tobacco Use Status: Current-Occasional Tobacco Type: cigarettes and cigars Tobacco: How many years used: 60 Quit status: considering quitting Counseling given: counseling >3 minutes Smoking risk assessment performed?: Yes Alcohol Intake: former Drug use: Never Substance use type: does not use Caregiver/Support person: No Household members: none Housing: apartment Number of Children: 0 Communication Needs: Corrective Lenses Education Level: high school Do you need help understanding health information?: Rarely Pets and animals: Yes Pets and animals: cat(s) Current gender identity: male What is your relationship status?: refused to answer How often do you talk on the phone with friends or family?: twice per week How often do you get together with friends or relatives?: once per week How often do you attend jew or voodoo services?: decline to answer Do you belong to any clubs or organized social groups?: no Panel score (0-1 are the most socially isolated patients): 1 What type of physical activity do you participate in: bicycling and other Details: stationary bike Duration: 15-30 minutes/day Frequency: 3-4 times per week Rama/Congregational: Adventist Special rama needs: No Agree to transfusion: Yes Seatbelt use: always Helmet use: No Drive intox or ride w/intox flag car driver: No Water heater temp set <120 deg: Yes Working smoke detector in home: Yes Fire extinguisher in home: Yes Carbon monox detector in home: Yes Do you feel safe at home: Yes Do you feel safe in your relationship?: Yes Additional Social history: Exposure to- asbestos, chemicals an toxins. Exam <Anna Noland NP - Last Filed: 07/14/22 15:26> Const General: cooperative, healthy appearing, comfortable and no acute distress Nutritional Appearance: average body habitus Orientation: alert, awake and oriented x3 HENMT Head: normal to inspection, normocephalic and atraumatic General nose exam: external nose normal, no nasal discharge and epistaxis on the left dried blood present and source not visualized; no active bleeding Face and sinus: normal facial exam Mouth: oral mucosae normal Chest Chest: normal inspection of the chest Resp Effort & Inspection: normal respiratory effort Cardio Rate: regular rate Rhythm: regular rhythm Skin General skin exam: no rashes or lesions noted Neuro General: patient alert, patient awake and patient oriented x3 Course <Anna Noland, SHINGLE SAWYER - Last Filed: 07/14/22 15:26> Vital Signs Vital signs: Vital Signs Temperature 36.5 C 07/12/22 19:19 Pulse 94 H 07/12/22 19:19 Respiratory Rate 20 07/12/22 19:19 Blood Pressure 179/120 H 07/12/22 19:19 Pulse Oximetry 97 07/12/22 19:19 Temperature 36.5 C 07/12/22 19:19 Temperature Source Oral 07/12/22 19:19 Pulse 87 07/12/22 20:09 Respiratory Rate 20 07/12/22 19:19 Respiratory Effort Normal 07/12/22 20:19 Blood Pressure 111/80 07/12/22 20:09 Blood Pressure Position Supine 07/12/22 19:19 Pulse Oximetry 97 07/12/22 19:19 Oxygen Delivery Method Room Air 07/12/22 19:19 Oxygen Flow Rate 0 07/12/22 19:19 Lab/Test Results Lab/Test Results: Laboratory Tests Range/Units 07/12/22 07/12/22 07/12/22 19:45 19:45 19:45 WBC (4.4-10.8) 10^3/uL 10.72 RBC (4.36-5.78) 10^6/uL 5.24 Hgb (13.5-17.5) g/dL 16.0 Hct (40.0-50.0) % 47.8 MCV (80-95) fL 91 MCH (27.0-33.0) pg 30.5 MCHC (32.0-36.0) % 33.5 RDW (11.8-14.1) % 13.4 Plt Count (130-400) 10^3/uL 272 MPV (8.0-11.0) fL 9.0 Immature Gran % 0.3 Neutrophils % 56.9 Lymphocytes % 33.1 Monocytes % 7.6 Eosinophils % 1.5 Basophils % 0.6 Nucleated RBC % (0.0-0.3) % 0.0 Absolute Neutrophils (1.2-6.7) 10^3/uL 6.10 Absolute Lymphocytes (1.2-3.4) 10^3/uL 3.55 H Absolute Monocytes (0.1-0.8) 10^3/uL 0.82 H Absolute Eosinophils (0.0-0.7) 10^3/uL 0.16 Absolute Basophils (0.0-0.2) 10^3/uL 0.06 PT (9.3-11.0) sec 10.9 INR (0.9-1.1) 1.1 Sodium (136-145) mmol/L 142 Potassium (3.5-5.1) mmol/L 3.9 Chloride (98-107) mmol/L 104 Carbon Dioxide (21.0-32.0) mmol/L 27.4 Anion Gap (3-11) mmol/L 10.6 BUN (7-18) mg/dL 30 H Creatinine (0.70-1.30) mg/dL 1.2 Est GFR (CKD-EPI 2020) (mL/min/1.73m2) 62.29 Glucose (74-106) mg/dL 105 Calcium (8.5-10.1) mg/dL 10.6 H Total Bilirubin (0.2-1.0) mg/dL 0.7 AST (15-37) U/L 29 ALT (16-63) U/L 34 Alkaline Phosphatase (46-116) U/L 39 L Total Protein (6.4-8.2) g/dL 8.6 H Albumin (3.4-5.0) g/dL 4.9
== END 2022-07-12 21:31 | disposition home or self-care (01) ==
PROVIDERS: Emergency Provider Nurse Practitioner Acute Care; PCP Family Medicine
DX: R04.0 Epistaxis (principal); I10 Essential (primary) hypertension
CPT/HCPCS: 80053; 96374; 99284; 85025; 85610

== ENCOUNTER 2022-09-05 08:08 | Outpatient (CLI) | payer MEDICARE, SELFPAY ==
--- NOTE | 2022-09-05 08:00 | RT.EKG_ITS ---
APPROVED REPORT Exam: Resting ECG Reason for Exam: cardiac evaluation Patient Location: O HR:90 bpm ECG Measurements Heart Rate 90 AXIS MA 167 P 39 QRSd 183 QRS 158 QT 475 T -9 QTc 582 Conclusion Atrial-sensed ventricular-paced rhythm...ventricular pacing tracks p-waves No further analysis attempted due to paced rhythm Baseline wander in lead(s) V2,V3
== END 2022-09-05 08:09 | disposition home or self-care (01) ==
LOC: DI.CARD 08:09
PROVIDERS: PCP Family Medicine; Visit Provider Physician Assistant
DX: I25.10 Atherosclerotic heart disease of native coronary artery without angina pectoris (principal); Z95.2 Presence of prosthetic heart valve; Z95.810 Presence of automatic (implantable) cardiac defibrillator
CPT/HCPCS: 93010

== ENCOUNTER → 2022-09-05 10:13 | Outpatient (BNVA) | payer MEDICARE, SELFPAY | PROVIDERS: PCP Family Medicine; Referring Provider Family Medicine; Visit Provider Physician Assistant | DX: Z45.02 Encounter for adjustment and management of automatic implantable cardiac defibrillator (principal) | CPT/HCPCS: 93005; 93284 ==

== ENCOUNTER → 2022-11-02 00:31 | Outpatient (CLI) | payer MEDICARE, SELFPAY ==
--- NOTE | 2022-11-02 10:30 | DI.US_ITS ---
APPROVED REPORT EXAM: Comprehensive 2D, Doppler, and color-flow Echocardiogram Patient Location: Out-Patient Design Editor: Celia Giang RDCS (AE) Indications: Follow up TAVR, Aortic stenosis, pacer Other Information Study Quality: Adequate Conclusion Moderate left ventricular hypertrophy. Ejection fraction is 40%. There are wall motion abnormalitie s involving the inferior posterior and posterior lateral esparza Normal right ventricular size and systolic function Both atria are normal in size Device lead noted in the right heart Status post transcatheter aortic valve replacement. Mean gradient is 13 mmHg. 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 Left ventricular systolic function is moderately decreased. Modera te concentric left ventricular hypertrophy. Regional wall motion abnormalities are noted. There is no ventricular septal defect visualized. LVEF is 40%. Right Ventricle The right ventricle is normal size. The right ventricular systolic function is normal. Pacemaker lead is present in the right ventricle. Atria The left atrium size is normal. The right atrium size is normal. The interatrial septum is intact wit h no evidence for an atrial septal defect. Aortic Valve TAVR aortic valve. Mean gradient is 13 mmHg No aortic regurgitation is present. Mitral Valve Moderate mitral annular calcification. No evidence of mitral valve stenosis. Mild mitral regurgitatio n. Tricuspid Valve The tricuspid valve is normal in structure. There is no tricuspid valve stenosis. Trace tricuspid reg urgitation. Unable to assess PA pressure. Pulmonic Valve The pulmonary valve is normal in structure. There is no pulmonic valvular stenosis. There is no pulmo roby valvular regurgitation. Great Vessels The aortic root is normal in size. The ascending aorta is mildly dilated. Aortic arch is not well vis ualized. IVC is normal in size and collapses >50% with inspiration. Pericardium There is no pericardial effusion. 2D Dimensions IVSD d PLAX 1.46 cm M: 0.6-1.2 Ao Root d 2.04 cm M: 3.1 - 3.7 LVPW d PLAX 1.48 cm M: 0.6 - 1.2 Ao Asc Diam d 3.74 cm M: 2.6 - 3.4 LVID d PLAX 4.77 cm M: 4.2 - 5.8 LVDs 3.85 cm M: 2.5 - 4.0 LV EF Teichholz 39.6 % FS 19.26 % LV EDV (Teich) 106.1 mL LV ESV (Teich) 64.0 mL M-Mode TAPSE 2.11 cm (M/F) >1.7 Auto EF LV EDV A4C 171.1 mL LV EDV A2C 179.0 mL LV EDV BP 175.8 mL LV ESV A4C 102.1 mL LV ESV A2C 107.6 mL LV ESV BP 101.1 mL LVEF(%) A4C 40.3 % LVEF(%) A2C 39.9 % LVEF(%) BP 42.5 % LV SV A4C 69.0 ml LV SV A2C 71.4 ml LV SV BP 74.7 ml LV CO A4C 5.2 L/min LV CO A2C 5.6 L/min LV CO BP 5.4 L/min HR A4C 75.32 BPM HR A2C 78.44 BPM LV EDV Index (BP) RV Strain Global Peak Long. Strain A4C 14.51 Global Peak Long. Strain A4C FW 17.66 LA Volume LA Length A4C 5.3 cm LA Length A2C 5.6 cm LA Area A4C s 20.00 cm2 LA Area A2C s 18.97 cm2 LA Vol A4C A-L 63.99 mL LA Vol A2C A-L 54.73 mL LA Vol Biplane A-L 60.7 mL LA Vol/BSA A4C A-L LA Vol/BSA A2C A-L LA Vol/BSA BP A-L 31.6 mL/m2 LA Vol A4C MOD 59.3 mL LA Vol A2C MOD 51.0 mL LA Vol BP MOD 56.1 mL RA Volume RA Area A4C 15.2 cm2 RA ESV A4C (A-L) 38.6mL RA Vol/BSA A4C A-L RA Length A4C 5.1 cm RA ESV A4C (MOD) 36.0mL LV Diastology MV E' medial 0.071 (>0.07 m/s) Aortic Valve AoV Vmax 2.34 m/s LVOT Vmax 1.35 m/s AoV Peak Grad 21.9 mmHg LVOT Peak Grad 7.3 mmHg AoV Area (Vmax) 1.75 cm2 LVOT VTI 0.282 m AoV VTI 0.452 m LVOT Mean Grad 4.9 mmHg AoV Mean Damien. 1.72 m/s LVOT SV 85.58 mL AoV Mean Grad 13.2 mmHg LVOT Diam s 1.95 cm AoV Area (VTI) 1.90 cm2 Velocity Ratio 0.58 Mitral Valve MV Vmax TIPS 1.87 m/s MV Mean Grad 5.1 (<2mmHg) MV VTI 0.403 m Pulmonary Valve PV Vmax 0.82 (0.5-1.5 m/s) RVOT Vmax 0.73 m/s PV Peak Grad 2.7 mmHg RVOT Peak Gr. 2.2 mmHg PV Mean Damien 0.54 m/s RVOT VTI 0.109 m PV Mean Grad 1.4 mmHg RVOT Mean Gr. 1.2 mmHg Tricuspid Valve TV S' 0.09 m/s
== END ==
PROVIDERS: PCP Family Medicine; Visit Provider Internal Medicine Cardiovascular Disease
DX: I35.0 Nonrheumatic aortic (valve) stenosis (principal)
CPT/HCPCS: 93306

== ENCOUNTER → 2022-11-08 13:02 | Outpatient (BNVA) | payer MEDICARE, SELFPAY | PROVIDERS: PCP Family Medicine; Visit Provider Internal Medicine Cardiovascular Disease | DX: I13.0 Hypertensive heart and chronic kidney disease with heart failure and stage 1 through stage 4 chronic kidney disease, or unspecified chronic kidney disease (principal); N18.30 Chronic kidney disease, stage 3 unspecified; I25.10 Atherosclerotic heart disease of native coronary artery without angina pectoris; Z95.2 Presence of prosthetic heart valve; Z95.810 Presence of automatic (implantable) cardiac defibrillator; J44.9 Chronic obstructive pulmonary disease, unspecified; I50.9 Heart failure, unspecified | CPT/HCPCS: 99214 ==

== ENCOUNTER 2022-11-13 17:19 | Outpatient (CLI) | payer MEDICARE, SELFPAY ==
[2022-11-13 10:40] LABS: Abs Immature Grans 0.01 10^3/uL (0.0-0.06); Absolute Basophil Count 0.06 10^3/uL (0.0-0.2); Absolute Eosinophil Count 0.26 10^3/uL (0.0-0.7); Absolute Lymphocyte Count 2.51 10^3/uL (1.2-3.4); Absolute Monocyte Count 0.57 10^3/uL (0.1-0.8); Absolute Neutrophil Count 5.27 10^3/uL (1.2-6.7); Basophils % 0.7; HGB 15.7 g/dL (13.5-17.5); Immature Grans % 0.1; Lymphocytes % 28.9; MCH 28.8 pg (27.0-33.0); MCHC 33.4 % (32.0-36.0); MCV 86 fL (80-95); MPV 9.1 fL (8.0-11.0); Monocytes % 6.6; Neutrophils % 60.7; Platelet Count 297 10^3/uL (130-400); RBC 5.46 10^6/uL (4.36-5.78); RDW 14.7 % (11.8-14.1); RDW-SD 46.5 fL; WBC 8.68 10^3/uL (4.4-10.8)
[2022-11-13 11:11] LABS: ALT 22 U/L (16-63); AST 17 U/L (15-37); Albumin 4.4 g/dL (3.4-5.0); Alkaline Phosphatase 38 U/L (46-116); Anion Gap 9.9 mmol/L (3-11); BUN 25 mg/dL (7-18); Bilirubin, Total 0.6 mg/dL (0.2-1.0); CO2 28.1 mmol/L (21.0-32.0); CREATININE 1.3 mg/dL (0.70-1.30); Calcium 10.7 mg/dL (8.5-10.1); Chloride 103 mmol/L (98-107); Estimated GFR 56.58 (mL/min/1.73m2); Glucose 105 mg/dL (74-106); Potassium 3.8 mmol/L (3.5-5.1); Sodium 141 mmol/L (136-145); Total Protein 8.5 g/dL (6.4-8.2)
== END 2022-11-13 17:20 | disposition home or self-care (01) ==
LOC: LBO 17:24
PROVIDERS: Internal Medicine Cardiovascular Disease; PCP Family Medicine; Visit Provider Internal Medicine Infectious Disease
DX: R78.81 Bacteremia (principal); B95.61 Methicillin susceptible Staphylococcus aureus infection as the cause of diseases classified elsewhere; I25.10 Atherosclerotic heart disease of native coronary artery without angina pectoris; N18.30 Chronic kidney disease, stage 3 unspecified; Z95.2 Presence of prosthetic heart valve; E11.9 Type 2 diabetes mellitus without complications
CPT/HCPCS: 36415; 80053; 85025

== ENCOUNTER → 2022-11-26 01:22 | Outpatient (CLI) | payer MEDICARE, SELFPAY ==
--- NOTE | 2022-11-26 08:45 | DI.NM_ITS ---
APPROVED REPORT Exam: Pharmacologic Patient Location: Out-Patient Room/Bed: Stress Nurse: Tamar Graves RN Ordering Provider:MICAH CRAFTD, Contact Number: BMI: 31.63 Baseline Rhythm: A-sense, V-paced Indications: Abnormal LV Funtion, STEMI Medical History Medical History: STEMI 01/30/2018, ASCVD, COPD, ANNABELLE, DM2, CHF, chest pain, CKD, halfway opiate use, MSSA bactermia, chronic pain disorder, HTN, HLD, obesity, Aortic stenosis Cardiac Medications: Semaglutide, oxycodone, nitroglycerin, lisinopril, insulin detemir, glipizide, f urosemide, fenofibrate, cyclobenzaprine, colchicine, carvedilol, atorvastatin, aspirin, albuterol Allergies: codeine, gabapentine Cardiac Risk Factors: Family Hx, CVD, COPD, HTN, DM, Former smoker, HLD, obesity Previous Cardiac Procedures: TAVE, PPM implantation Pretest Chest Pain Characteristics: None Exercise History: Sedentary Physical Disabilities: None Lung Sounds: Clear to auscultation Heart Sounds: Regular Stress Test Details Test: Pharmacologic stress testing performed using 0.4 mg of regadenoson per 5 mL given IV over 10 s econds. Nuclear Acquisition: Rest Tc-99m/Stress Tc-99m 1 day Rest Isotope: Tc-99m Sestamibi. Dose: 10 Date: 11/26/2022 Injection Time: 0850 Stress Isotope: Tc-99m Sestamibi. Dose: 31 Date: 11/26/2022 Injection Time: 1030 HR Resting HR Supine: 83 bpm Max Heart Rate (APMHR): 143 bpm Target HR (85% APMHR): 122 bpm Max HR Achieved: 100 bpm % of APMHR: 70 Recovery HR: 100 bpm BP Resting BP Supine: 138/80 mmHg Max BP: 188/98 mmHg Recovery BP: 170/84 mmHg ECG Resting ECG: Ventricular paced rhythm Ectopy: none Stress ECG: Ventricular paced rhythm ST Change: No significant ST segment changes noted Arrhythmia: None Recovery ECG: Ventricular paced rhythm Recovery ST Change: No significant ST segment changes noted Recovery Arrhythmia: None Clinical Rate Pressure Product: 28300 Stress ECG Conclusion 1. The electrocardiogram showed an atrial sensed ventricular paced rhythm 2. Patient underwent testing using pharmacologic stress with regadenoson 3. Peak heart rate achieved was 70% of predicted for age 4. Electrocardiographic portion of the test was nondiagnostic due to both inadequate heart rate and v entricular pacing 5. See MPI report Stress Test Summary STAGE HR BP SpO2 Symptoms NOTES Supine 83 138/80 1 min post Lexiscan injection 88 160/76 nausea 3 min post Lexiscan injection 100 188/98 vomiting 6 min post Lexiscan injection 100 170/84 symptoms resolved MPI Conclusion There is no evidence of significant myocardial ischemia Gated study shows ejection fraction of 29% with inferior posterior lateral wall motion abnormalities Radiologist Interpretation Radiologist agrees with Net Sql Developer's Interpretation. Radiologist Interpretation by: Georgette Beyer MD Interpretation Date/Time: 11/26/2022 15:50:52
[2022-11-26] MEDS: Regadenoson 0.4 MG/5 ML SYR IVP (10:06)
== END ==
PROVIDERS: PCP Family Medicine; Visit Provider Internal Medicine Cardiovascular Disease
DX: I51.9 Heart disease, unspecified (principal); I21.4 Non-ST elevation (NSTEMI) myocardial infarction
CPT/HCPCS: 78452; 93016; 93018; 93017; J2785

== ENCOUNTER 2022-12-21 09:30 | Outpatient (REF) | payer MEDICARE, SELFPAY ==
[2022-12-26 11:36] LABS: Codeine Negative ng/mL (Cutoff: 25); Dihydrocodeine Negative ng/mL (Cutoff: 25); Hydrocodone Negative ng/mL (Cutoff: 25); Hydromorphone Negative ng/mL (Cutoff: 25); Morphine Negative ng/mL (Cutoff: 25); Naloxone Negative ng/mL (Cutoff: 25); Norhydrocodone Negative ng/mL (Cutoff: 25); Noroxycodone Negative ng/mL (Cutoff: 25); Noroxymorphone Negative ng/mL (Cutoff: 25); Opiates Interpretation Negative.
== END 2022-12-21 09:31 | disposition home or self-care (01) ==
LOC: LBO 09:30
PROVIDERS: PCP Family Medicine; Visit Provider Family Medicine
DX: Z79.891 Long term (current) use of opiate analgesic (principal)
CPT/HCPCS: 80361; 80362; 80365

== ENCOUNTER → 2023-01-28 14:45 | Outpatient (BNVA) | payer MEDICARE, SELFPAY | PROVIDERS: PCP Family Medicine; Referring Provider Family Medicine; Visit Provider Student in an Organized Health Care Education/Training Program | DX: J44.9 Chronic obstructive pulmonary disease, unspecified (principal); Z79.51 Long term (current) use of inhaled steroids; Z87.891 Personal history of nicotine dependence; G47.33 Obstructive sleep apnea (adult) (pediatric); R53.83 Other fatigue | CPT/HCPCS: 99214 ==

== ENCOUNTER → 2023-03-06 10:20 | Outpatient (BNVA) | payer MEDICARE, SELFPAY | PROVIDERS: PCP Family Medicine; Referring Provider Family Medicine; Visit Provider Physician Assistant | DX: Z95.810 Presence of automatic (implantable) cardiac defibrillator (principal); I44.2 Atrioventricular block, complete | CPT/HCPCS: 93284 ==

== ENCOUNTER 2023-03-14 11:13 | Outpatient (CLI) | payer MEDICARE, SELFPAY ==
[2023-03-14 12:08] LABS: Anion Gap 12.6 mmol/L (3-11); BUN 19 mg/dL (7-18); CO2 26.4 mmol/L (21.0-32.0); CREATININE 1.1 mg/dL (0.70-1.30); Calcium 10.2 mg/dL (8.5-10.1); Chloride 104 mmol/L (98-107); Estimated GFR 68.71 (mL/min/1.73m2); Glucose 127 mg/dL (74-106); Potassium 3.8 mmol/L (3.5-5.1); Sodium 143 mmol/L (136-145)
[2023-03-14 12:31] LABS: TSH (W/Ref FT4) 1.03 uIU/mL (0.36-3.74); Vitamin B12 168 pg/mL (193-986)
[2023-03-14 12:53] LABS: Vitamin D 25 Total 25.3 ng/mL (30-100)
== END 2023-03-14 11:14 | disposition home or self-care (01) ==
LOC: LBO 11:16
PROVIDERS: PCP Family Medicine; Visit Provider Student in an Organized Health Care Education/Training Program
DX: R53.83 Other fatigue (principal); E55.9 Vitamin D deficiency, unspecified; N18.30 Chronic kidney disease, stage 3 unspecified
CPT/HCPCS: 36415; 80048; 82306; 82533; 82607; 84443

== ENCOUNTER 2023-04-30 04:29 | Outpatient (CLI) | payer MEDICARE, SELFPAY ==
[2023-04-30 14:11] LABS: Vitamin D 25 Total 34.1 ng/mL (30-100)
[2023-04-30 14:13] LABS: Vitamin B12 333 pg/mL (193-986)
== END 2023-04-30 04:30 | disposition home or self-care (01) ==
LOC: LBO 04:30
PROVIDERS: PCP Family Medicine; Visit Provider Student in an Organized Health Care Education/Training Program
DX: E55.9 Vitamin D deficiency, unspecified (principal); E53.8 Deficiency of other specified B group vitamins
CPT/HCPCS: 36415; 82306; 82607

== ENCOUNTER → 2023-05-03 10:32 | Outpatient (BNVA) | payer MEDICARE, SELFPAY | PROVIDERS: PCP Family Medicine; Visit Provider Internal Medicine Cardiovascular Disease | DX: I42.9 Cardiomyopathy, unspecified (principal); Z95.810 Presence of automatic (implantable) cardiac defibrillator; Z95.2 Presence of prosthetic heart valve | CPT/HCPCS: 99213 ==

== ENCOUNTER → 2023-07-29 13:13 | Outpatient (BNVA) | payer MEDICARE, SELFPAY | PROVIDERS: PCP Family Medicine; Referring Provider Family Medicine; Visit Provider Physician Assistant Surgical | DX: J44.9 Chronic obstructive pulmonary disease, unspecified (principal); G47.33 Obstructive sleep apnea (adult) (pediatric); R53.83 Other fatigue; Z87.891 Personal history of nicotine dependence | CPT/HCPCS: 99214 ==

== ENCOUNTER → 2023-09-03 08:42 | Outpatient (BNVA) | payer MEDICARE, SELFPAY | PROVIDERS: PCP Family Medicine; Referring Provider Family Medicine; Visit Provider Internal Medicine Cardiovascular Disease | DX: I42.9 Cardiomyopathy, unspecified (principal); Z95.2 Presence of prosthetic heart valve; Z95.810 Presence of automatic (implantable) cardiac defibrillator | CPT/HCPCS: 99213 ==

== ENCOUNTER 2023-09-04 08:54 | Outpatient (CLI) | payer MEDICARE, SELFPAY ==
--- NOTE | 2023-09-04 08:45 | RT.EKG_ITS ---
APPROVED REPORT Exam: Resting ECG Reason for Exam: ascvd Patient Location: O HR:89 bpm ECG Measurements Heart Rate 89 AXIS AR 168 P 68 QRSd 180 QRS 165 QT 469 T -1 QTc 571 Conclusion Atrial-sensed ventricular-paced rhythm...ventricular pacing tracks p-waves No further analysis attempted due to paced rhythm Baseline wander in lead(s) II,III,aVF
== END 2023-09-04 08:55 | disposition home or self-care (01) ==
LOC: DI.CARD 08:55
PROVIDERS: PCP Family Medicine; Visit Provider Physician Assistant
DX: Z95.810 Presence of automatic (implantable) cardiac defibrillator (principal); I25.10 Atherosclerotic heart disease of native coronary artery without angina pectoris; I44.2 Atrioventricular block, complete; I49.8 Other specified cardiac arrhythmias
CPT/HCPCS: 93010

== ENCOUNTER → 2023-09-04 10:22 | Outpatient (BNVA) | payer MEDICARE, SELFPAY | PROVIDERS: PCP Family Medicine; Visit Provider Physician Assistant | DX: Z95.810 Presence of automatic (implantable) cardiac defibrillator (principal); I25.10 Atherosclerotic heart disease of native coronary artery without angina pectoris; I44.2 Atrioventricular block, complete | CPT/HCPCS: 93005; 93284 ==

== ENCOUNTER → 2024-01-22 13:05 | Outpatient (BNVA) | payer MEDICARE, SELFPAY | PROVIDERS: PCP Family Medicine; Referring Provider Family Medicine; Visit Provider Internal Medicine Cardiovascular Disease | DX: Z95.810 Presence of automatic (implantable) cardiac defibrillator (principal) | CPT/HCPCS: 93284 ==

== ENCOUNTER → 2024-01-27 13:04 | Outpatient (BNVA) | payer MEDICARE, SELFPAY | PROVIDERS: PCP Family Medicine; Referring Provider Family Medicine; Visit Provider Physician Assistant Surgical | DX: J44.9 Chronic obstructive pulmonary disease, unspecified (principal); G47.33 Obstructive sleep apnea (adult) (pediatric); R53.83 Other fatigue; Z87.891 Personal history of nicotine dependence | CPT/HCPCS: 99214 ==

== ENCOUNTER → 2024-03-03 10:32 | Outpatient (BNVA) | payer MEDICARE, SELFPAY | PROVIDERS: PCP Family Medicine; Visit Provider Internal Medicine Cardiovascular Disease | DX: I42.9 Cardiomyopathy, unspecified (principal); Z95.810 Presence of automatic (implantable) cardiac defibrillator | CPT/HCPCS: 99214 ==

== ENCOUNTER 2024-03-05 16:23 | Outpatient (CLI) | payer MEDICARE, SELFPAY ==
[2024-03-05 14:26] LABS: Abs Immature Grans 0.03 10^3/uL (0.0-0.06); Absolute Basophil Count 0.05 10^3/uL (0.0-0.2); Absolute Lymphocyte Count 3.05 10^3/uL (1.2-3.4); Absolute Monocyte Count 0.77 10^3/uL (0.1-0.8); Absolute Neutrophil Count 5.88 10^3/uL (1.2-6.7); Basophils % 0.5 %; HCT 51.4 % (40.0-50.0); HGB 16.8 g/dL (13.5-17.5); Immature Grans % 0.3 %; Lymphocytes % 30.6 %; MCH 30.2 pg (27.0-33.0); MCHC 32.7 % (32.0-36.0); MCV 92 fL (80-95); MPV 8.8 fL (8.0-11.0); Monocytes % 7.7 %; Neutrophils % 58.9 %; Platelet Count 246 10^3/uL (130-400); RBC 5.56 10^6/uL (4.36-5.78); RDW 14.4 % (11.8-14.1); RDW-SD 48.5 fL; WBC 9.98 10^3/uL (4.4-10.8)
[2024-03-05 14:58] LABS: Anion Gap 7.9 mmol/L (3-11); BUN 33 mg/dL (7-18); CO2 31.1 mmol/L (21.0-32.0); CREATININE 1.6 mg/dL (0.70-1.30); Calcium 11.1 mg/dL (8.5-10.1); Chloride 106 mmol/L (98-107); Estimated GFR 43.56 (mL/min/1.73m2); Glucose 77 mg/dL (74-106); Sodium 145 mmol/L (136-145)
[2024-03-05 15:00] LABS: ALT 22 U/L (16-63); AST 24 U/L (15-37)
== END 2024-03-05 16:24 | disposition home or self-care (01) ==
LOC: LBO 16:24
PROVIDERS: PCP Family Medicine; Visit Provider Internal Medicine Infectious Disease
DX: N18.30 Chronic kidney disease, stage 3 unspecified
CPT/HCPCS: 36415; 80048; 84450; 84460; 85025

== ENCOUNTER 2024-04-16 16:26 | Inpatient (IN) | payer MEDICARE, SELFPAY ==
[2024-04-16] VITALS (140 sets, daily range): BP systolic 105–196; BP diastolic 40–145; PULSE 69–131; RESP 10–39; TEMP 36.4; O2SAT 90–98
--- NOTE | 2024-04-16 16:15 | RT.EKG_ITS ---
APPROVED REPORT Exam: Resting ECG Reason for Exam: SOB Patient Location: E HR:120 bpm ECG Measurements Heart Rate 120 AXIS HI 110 P 246 QRSd 176 QRS 250 QT 432 T 73 QTc 612 Conclusion Ventricular-paced rhythm, rate 120 Compared to priors, rate has increased, no morphology changes. Sgarbossa negative
--- NOTE | 2024-04-16 16:30 | DI.RAD_ITS ---
Exam(s) XR PORTABLE CHEST AP EXAM: XR PORTABLE CHEST AP CLINICAL HISTORY: Chest pain, SOB, hypoxia TECHNIQUE: 2D digital imaging was performed of the chest. One image was obtained. An AP view was ob tained. COMPARISON: CR XR CHEST 2V PA LATERAL from 05/06/2018 CR XR PORTABLE CHEST AP from 05/08/[address] CHEST LUNG CANCER SCREEN from 06/18/2022 FINDINGS: MEDIASTINUM: Normal. HEART: Normal. Cardiac pacing device is in place. PULMONARY VASCULATURE: Normal. LUNGS: There is streaky interstitial markings in the perihilar regions bilaterally. No focal consoli dating infiltrate is seen. PLEURAL SPACE: No pleural effusion or pneumothorax. BONE:Within normal limits for the patient's age. OTHER FINDINGS:Normal. IMPRESSION: Streaky interstitial markings seen in the perihilar regions bilaterally. Differential considerations include atelectasis, pneumonitis or edema. Please correlate clinically. No focal consolidating inf iltrates are seen. DATA REPOSITORY: RADIATION DOSE DELIVERED:
[2024-04-16] MEDS: Furosemide 40 MG/4 ML VIAL IVP (16:43)
[2024-04-16] MEDS: Ondansetron 4 MG/2 ML VIAL IVP (16:43)
[2024-04-16] MEDS: nitroGLYcerin in D5W 50 MG/250 ML BTL 30 MG IV (16:43)
--- NOTE | 2024-04-16 17:05 | ED.GENADUL_ITS ---
Discharge Plan Disposition Patient Disposition: Admit to [facility] Condition: Fair Discharge Details Chief Complaint: Chest Pain Clinical Impression: Acute non-ST elevation myocardial infarction (NSTEMI), DM neuro manif type II, Chronic kidney disease (CKD) stage G3a/A1, moderately decreased glomerular filtration rate (GFR) between 45-59 mL/min/1.73 square meter and albuminuria creatinine ratio less than 30 mg/g, Diabetes mellitus, type II, Hypertension, Obstructive sleep apnea syndrome, ASCVD (arteriosclerotic cardiovascular disease), Acute exacerbation of CHF (congestive heart failure), Pulmonary edema, Acute hypoxic respiratory failure Primary Care Provider: Tien Galicia ED Provider: Dagmar Lopez Home Meds and New Rx's Prescriptions: No Action oxycodone 10 mg tablet 10 mg PO BID MDD 30 mg PRN (Reason: pain) Qty: 60 0RF Rx Instructions: May taken an additional tablet daily up to twice a month, if needed oxycodone 10 mg tablet 10 mg PO BID MDD 30 mg PRN (Reason: pain) Qty: 60 0RF Rx Instructions: Can take an occasional extra tab per day up to twice a month, if needed oxycodone 10 mg tablet 10 mg PO BID MDD 30 mg PRN (Reason: pain) Qty: 60 0RF Rx Instructions: May take an additional tab daily up to twice a month, if needed aspirin 81 MG tablet,delayed release (DR/EC) 81 mg PO DAILY (DME) nebulizers [Devilbiss Disposable Nebulizer] 1 EACH misc 1 ea Miscellaneous QID Qty: 1 Rx Instructions: Dx:R06.09 ARDS albuterol sulfate 2.5 mg /3 mL (0.083 %) solution for nebulization 2.5 mg UPD Q2H PRN PRN (Reason: shortness of breath or wheezing) Qty: 180 3RF (DME) Oxygen Tank See Rx Instructions .Route Rx Instructions: 11/01/22 Sleep Note: 3LPM for sleep.HE albuterol sulfate [Ventolin HFA] 90 mcg/actuation HFA aerosol inhaler 2 puff inhalation 6XD Qty: 8.5 6RF amlodipine 10 mg tablet 10 mg PO DAILY Qty: 90 3RF Patient Comments: Pt. states,I'm no longer taking this medication. Rx Instructions: lower BP <140/85 atorvastatin 40 mg tablet 40 mg PO QHS Qty: 90 3RF carvedilol 12.5 mg tablet 12.5 mg PO BID Qty: 180 3RF cephalexin 500 mg capsule 500 mg PO BID Qty: 180 3RF colchicine 0.6 mg tablet 0.6 mg PO BID PRN (Reason: gout attack) Qty: 30 3RF cyclobenzaprine 10 mg tablet 10 mg PO TID PRN (Reason: muscle spasm) Qty: 270 3RF Rx Instructions: 1 tablet in the morning and 2 tablets in the evening, as needed, for muscle spasms fenofibrate nanocrystallized 145 mg tablet 145 mg PO DAILY Qty: 90 3RF fluticasone propionate [Flonase Allergy Relief] 50 mcg/actuation spray,suspension 2 spray NS DAILY Qty: 1 6RF Rx Instructions: each nostril once daily for rhinnitis Trelegy Ellipta 100-62.5-25 mcg blister with device See Rx Instructions .ROUTE .COMPLEX Qty: 60 12RF Dose Instruction: INHALE 1 PUFF BY MOUTH DAILY Rx Instructions: INHALE 1 PUFF BY MOUTH DAILY furosemide 20 mg tablet 20 mg PO DAILY Qty: 90 3RF glipizide 5 mg tablet 5 mg PO BID Qty: 180 3RF lisinopril 40 mg tablet 80 mg PO DAILY Qty: 180 3RF metformin 500 mg tablet 1,000 mg PO BID Qty: 360 3RF mirtazapine [Remeron] 15 mg tablet 15 mg PO QPM Qty: 90 3RF nitroglycerin [Nitrostat] 0.4 mg tablet, sublingual 0.4 mg SL PRN Qty: 30 3RF triamcinolone acetonide 0.1 % cream 1 applic topical BID Qty: 30 5RF Rx Instructions: apply to feet daily (DME) Accu-Chek Sherri Plus test strp Strip See Rx Instructions .ROUTE .COMPLEX Qty: 300 3RF Dose Instruction: USE STRIPS DIRECTED THREE TIMES A DAY Rx Instructions: USE STRIPS DIRECTED THREE TIMES A DAY insulin glargine [Basaglar KwikPen U-100 Insulin] 100 unit/mL (3 mL) insulin pen See Rx Instructions subcut BID MDD 39 Qty: 15 6RF Rx Instructions: 19 units QAM, 24 units QHS, can take up to 30 units QHS after a large meal; subcut; (DME) lancets [Accu-Chek Softclix Lancets] Misc See Rx Instructions .ROUTE .MEDSUPPLY Qty: 100 6RF Rx Instructions: Dx: E11.9, to keep HbA1c <7%, test TID (DME) pen needle, diabetic [BD Ultra-Fine Rebecca Pen Needle] 32 gauge x 5/32 needle 1 ea Miscellaneous DAILY 30 Days Qty: 200 6RF Rx Instructions: To keep HbA1c below 6.5% semaglutide 1 mg/dose (2 mg/1.5 mL) pen injector 2 mg subcut QWEEK 28 Days Qty: 6 11RF acetaminophen [Tylenol] 325 mg Tablet 325 mg PO Q4H PRN Rx Instructions: 1-2 tabs HPI General Mode of arrival: EMS . Date/Time Provider Initiated Documentation: 04/16/24 16:29 . Limitations to Documentation: no limitations . Information obtained by: patient, EMS and old records reviewed . HPI Narrative: HPI: This is a 79-year-old male patient with a past medical history significant for CAD, COPD, ANNABELLE, CHF, TAVR, diabetes, CKD, pacer, hypertension who is presenting for evaluation of shortness of breath and chest pain. The patient reports that he started to develop shortness of breath yesterday, which was not responsive to his home breathing treatments. He developed chest pain this morning, rated at a 3 or 4 out of 10 and associated with diaphoresis. The patient states that he wears 3 L of oxygen at night, does not typically need to wear it during the day. EMS was summoned given his significant shortness of breath and work of breathing, noted him to be hypoxic to the low 80s with tight lung sounds. He received 3 duo nebulizer treatments and 125 mg of Solu-Medrol, some improvement in his oxygenation but not his work of breathing. His chest pain persists despite receiving aspirin and 2 nitro's. He was hypertensive throughout transport. Exam: Gen: Awake and alert, in acute distress HEENT: Non-icteric sclera Neck: Supple Lungs: Tachypnea, marked increase in work of breathing, crackles bilateral bases with poor air movement in the apices. CV: Appears well perfused, heart with tachycardic rate, regular rhythm, paced on telemetry, strong distal pulses Abdomen: Non-distended, soft MSK: Moves 4 extremities without apparent limitation in ROM, no significant peripheral edema appreciated Skin: Visualized skin without rashes, cyanosis. Neuro: Normal Gait, no obvious focal deficits or facial asymmetry. Speaks in full, clear sentences. Psych: Appropriate for situation. MDM: This is a 79-year-old male patient presenting for evaluation of shortness of breath and chest pain. My differential includes but is not limited to ACS including STEMI, NSTEMI, unstable angina, certainly considered heart failure exacerbation/scape, COPD exacerbation. Considered arrhythmia, pericarditis/m yocarditis, aortic pathology. Considered other pulmonary abnormalities including pneumonia, bronchitis, pleural effusion, pneumothorax. The patient is without tachycardia, hypoxia, or a pleuritic component to his pain to significantly increase my concern for pulmonary embolism. We will obtain laboratory studies to include CBC, CMP, magnesium, troponin, BNP, Fluvid, and INR. He was my bedside ultrasound is concerning for B-lines bilaterally, hyperdynamic cardiac activity, no pleural effusion, IVC with greater than 50% respiratory variation. I am concerned for flash pulmonary edema and for this reason started the patient on BiPAP, obtained a VBG, provided him with 40 mg of Lasix. Will start him on a nitroglycerin drip. We will obtain a chest x-ray and EKG. ED Course: I reviewed the patient's EKG, which shows a paced rhythm with a rate of 120, morphology largely unchanged from priors, does have discordant ST segment changes that do not meet Sgarbossa criteria for STEMI equivalent. Laboratory studies reviewed by myself, showing no leukocytosis, anemia or thrombocytopenia. VBG with no acidosis or hypercarbia, no significant electrolyte derangements, kidney function at baseline. Magnesium slightly low at 1.6 and this was repleted intravenously. No evidence of liver dysfunction, BNP is elevated to 2400, initial troponin 65. The patient did have an episode of precipitously decreasing blood pressure was started on the high-dose nitro drip, for which it was stopped. He did have adequate urine output after Lasix. After approximately 2 hours on BiPAP, we were able to wean him down to nasal cannula and his work of breathing is significantly improved. He is currently on 2 L/min. The patient's chest pain persisted, for which she was provided with a dose of morphine followed by reinitiation of the nitro drip at 50 mics per minute. He reports that this does not significantly improve his pain. Repeat troponins are increasing, 104 and 136, concerning for NSTEMI complicated by heart failure exacerbation. I contacted [facility] cardiology, who does recommend optimization with diuresis prior to cath. I loaded the patient on Plavix and he received a dose of atorvastatin. I did contact numerous facilities for transfer and unfortunately they are all at capacity, and so reach out to our hospitalist to discuss admission for diuresis and eventual transfer to a cath capable facility. I did obtain a repeat EKG while the patient was in the emergency department which does not show any dynamic change from priors. Transferred to the ICU under the care of the hospitalist service without incident. Dagmar Lopez MD Related Data Home Medications ?Medication ?Instructions ?Recorded ?Confirmed aspirin 81 mg tablet,delayed 81 mg PO DAILY 05/05/12 04/16/24 release nebulizers (Devilbiss Disposable #1 ea 11/14/15 04/16/24 Nebulizer misc) acetaminophen 325 mg tablet 325 mg PO Q4H PRN 05/16/18 04/16/24 (Tylenol) albuterol sulfate 2.5 mg/3 mL 2.5 mg (3 mL) UPD Q2H PRN PRN 09/26/18 04/16/24 (0.083 %) solution for nebulization shortness of breath or wheezing #180 mL Oxygen 11/08/22 04/16/24 albuterol sulfate 90 mcg/actuation 2 puff inhalation 6XD #8.5 grams 09/12/23 04/16/24 aerosol inhaler (Ventolin HFA) amlodipine 10 mg tablet 10 mg PO DAILY #90 tab-caps 09/12/23 04/16/24 atorvastatin 40 mg tablet 40 mg PO QHS #90 tabs 09/12/23 04/16/24 carvedilol 12.5 mg tablet 12.5 mg PO BID #180 tabs 09/12/23 04/16/24 cephalexin 500 mg capsule 500 mg PO BID #180 caps 09/12/23 04/16/24 colchicine 0.6 mg tablet 0.6 mg PO BID PRN gout attack #30 09/12/23 04/16/24 tabs cyclobenzaprine 10 mg tablet 10 mg PO TID PRN muscle spasm #270 09/12/23 04/16/24 tab-caps fenofibrate nanocrystallized 145 145 mg PO DAILY #90 tabs 09/12/23 04/16/24 mg tablet fluticasone fur. 100 mcg-umeclid See Rx Instructions .Route 09/12/23 04/16/24 62.5 mcg-vilant 25 mcg .COMPLEX #60 ea inhalat.powder (Trelegy Ellipta) fluticasone propionate 50 2 spray NS DAILY #1 unit 09/12/23 04/16/24 mcg/actuation nasal spray,suspension (Flonase Allergy Relief) furosemide 20 mg tablet 20 mg PO DAILY edema or greater 09/12/23 04/16/24 than 7 lb weight gain in one week #90 tabs glipizide 5 mg tablet 5 mg PO BID #180 tabs 09/12/23 04/16/24 lisinopril 40 mg tablet 80 mg (2 x 40 mg) PO DAILY #180 09/12/23 04/16/24 tabs metformin 500 mg tablet 1,000 mg (2 x 500 mg) PO BID #360 09/12/23 04/16/24 tabs mirtazapine 15 mg tablet (Remeron) 15 mg PO QPM #90 tabs 09/12/23 04/16/24 nitroglycerin 0.4 mg sublingual 0.4 mg sublingual PRN chest pain 09/12/23 04/16/24 tablet (Nitrostat) #30 tabs triamcinolone acetonide 0.1 % 1 applic topical BID #30 grams 09/12/23 04/16/24 topical cream blood sugar diagnostic (Accu-Chek #300 strips 01/27/24 04/16/24 Sherri Plus test strips) insulin glargine 100 unit/mL (3 See Rx Instructions subcut BID #15 01/27/24 04/16/24 mL) subcutaneous pen (Basaglar mL KwikPen U-100 Insulin) lancets (Accu-Chek Softclix #100 ea 01/27/24 04/16/24 Lancets) pen needle, diabetic 32 gauge x #200 ea 01/27/24 04/16/24/32 (BD Ultra-Fine Rebecca Pen Needle) semaglutide 1 mg/dose (2 mg/1.5 2 mg (1.5 mL) subcut QWEEK 28 days 03/02/24 04/16/24 mL) subcutaneous pen injector #6 mL oxycodone 10 mg tablet 10 mg PO BID PRN pain #60 tabs 04/10/24 04/16/24 oxycodone 10 mg tablet 10 mg PO BID PRN pain #60 tabs 04/10/24 04/16/24 oxycodone 10 mg tablet 10 mg PO BID PRN pain #60 tabs 04/10/24 04/16/24 Previous Rx's ?Medication ?Instructions ?Recorded albuterol sulfate 2.5 mg/3 mL 2.5 mg (3 mL) UPD Q2H PRN PRN 09/26/18 (0.083 %) solution for nebulization shortness of breath or wheezing #180 mL albuterol sulfate 90 mcg/actuation 2 puff inhalation 6XD #8.5 grams 09/12/23 aerosol inhaler (Ventolin HFA) amlodipine 10 mg tablet 10 mg PO DAILY #90 tab-caps 09/12/23 atorvastatin 40 mg tablet 40 mg PO QHS #90 tabs 09/12/23 carvedilol 12.5 mg tablet 12.5 mg PO BID #180 tabs 09/12/23 cephalexin 500 mg capsule 500 mg PO BID #180 caps 09/12/23 colchicine 0.6 mg tablet 0.6 mg PO BID PRN gout attack #30 09/12/23 tabs cyclobenzaprine 10 mg tablet 10 mg PO TID PRN muscle spasm #270 09/12/23 tab-caps fenofibrate nanocrystallized 145 145 mg PO DAILY #90 tabs 09/12/23 mg tablet fluticasone fur. 100 mcg-umeclid See Rx Instructions .Route 09/12/23 62.5 mcg-vilant 25 mcg .COMPLEX #60 ea inhalat.powder (Trelegy Ellipta) fluticasone propionate 50 2 spray NS DAILY #1 unit 09/12/23 mcg/actuation nasal spray,suspension (Flonase Allergy Relief) furosemide 20 mg tablet 20 mg PO DAILY edema or greater 09/12/23 than 7 lb weight gain in one week #90 tabs glipizide 5 mg tablet 5 mg PO BID #180 tabs 09/12/23 lisinopril 40 mg tablet 80 mg (2 x 40 mg) PO DAILY #180 09/12/23 tabs metformin 500 mg tablet 1,000 mg (2 x 500 mg) PO BID #360 09/12/23 tabs mirtazapine 15 mg tablet (Remeron) 15 mg PO QPM #90 tabs 09/12/23 nitroglycerin 0.4 mg sublingual 0.4 mg sublingual PRN chest pain 09/12/23 tablet (Nitrostat) #30 tabs triamcinolone acetonide 0.1 % 1 applic topical BID #30 grams 09/12/23 topical cream blood sugar diagnostic (Accu-Chek #300 strips 01/27/24 Sherri Plus test strips) insulin glargine 100 unit/mL (3 See Rx Instructions subcut BID #15 01/27/24 mL) subcutaneous pen (Basaglar mL KwikPen U-100 Insulin) lancets (Accu-Chek Softclix #100 ea 01/27/24 Lancets) pen needle, diabetic 32 gauge x #200 ea 01/27/24 5/32 (BD Ultra-Fine Rebecca Pen Needle) semaglutide 1 mg/dose (2 mg/1.5 2 mg (1.5 mL) subcut QWEEK 28 days 03/02/24 mL) subcutaneous pen injector #6 mL oxycodone 10 mg tablet 10 mg PO BID PRN pain #60 tabs 04/10/24 oxycodone 10 mg tablet 10 mg PO BID PRN pain #60 tabs 04/10/24 oxycodone 10 mg tablet 10 mg PO BID PRN pain #60 tabs 04/10/24 Allergies Allergy/AdvReac Type Severity Reaction Status Date / Time codeine AdvReac Intermediate GI Upset Verified 04/10/24 08:09 gabapentin AdvReac Intermediate Dizziness/L Verified 04/10/24 08:09 ightheade General Stated Complaint: Chest Pain HOWARD: 2 Course Vital Signs Vital signs: Vital Signs Temperature 36.4 C L 04/16/24 16:36 Pulse 115 H 04/16/24 16:36 Respiratory Rate 31 H 04/16/24 16:36 Blood Pressure 189/96 H 04/16/24 16:36 Pulse Oximetry 93 04/16/24 16:36 Temperature 36.4 C L 04/16/24 16:36 Temperature Source Oral 04/16/24 16:36 Pulse 102 H 04/16/24 17:01 Respiratory Rate 39 H 04/16/24 17:01 Blood Pressure 189/96 H 04/16/24 16:36 Blood Pressure Position Sitting 04/16/24 16:36 Pulse Oximetry 94 04/16/24 17:01 Oxygen Delivery Method Room Air 04/16/24 16:36 Oxygen Flow Rate 0 04/16/24 16:36 Fraction of Inspired Oxygen (FIO2) 30 04/16/24 17:01 Medical Decision Making Quality:SDOH Health Related Social Needs: No Data to Display Critical Care Time Critical Care Time Critical Care Time: Yes Total Critical Care Time: 60 Attestation: Upon my evaluation, this patient had a high probability of imminent or life- threatening deterioration due to NSTEMI, heart failure exacerbation, which required my direct attention, intervention, and personal management. I have personally provided 60 minutes of critical care time exclusive of time spent on separately billable procedures. Time includes review of laboratory data, radiology results, discussion with consultants, and monitoring for potential decompensation. Interventions were performed as documented above. 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 - EXQUISITELY SENSITIVE TO TESTING Complete heart block (Acute) Vitamin D deficiency (Acute) Fatigue (Acute) Other secondary cataract, bilateral (Acute) Constipation due to pain medication (Acute) ASCVD (arteriosclerotic cardiovascular disease) (Acute) Toe deformity (Acute) Neuropathy (Acute) Nail dystrophy (Acute) COPD (chronic obstructive pulmonary disease) (Chronic) Pulmonary nodules (Acute) Obstructive sleep apnea syndrome (Chronic ~2017) Personal history of nicotine dependence (Acute) History of transcatheter aortic valve replacement (TAVR) (Acute) Diabetes mellitus type II, controlled (Chronic) Advance directive on file (Acute) CHF (congestive heart failure) (Chronic) Chest pain (Acute) Sciatica of left side (Acute 03/26/16) Dermatitis (Acute 02/08/11) Chronic kidney disease (CKD) stage G3a/A1, moderately decreased glomerular filtration rate (GFR) between 45-59 mL/min/1.73 square meter and albuminuria creatinine ratio less than 30 mg/g (Acute 05/24/17) Biventricular ICD (implantable cardioverter-defibrillator) in place (Acute) Diverticulosis (Acute) 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 Left L3 radiculopathy: Pain clinic injec 09/2016. Left lumbar radiculopathy (Chronic 10/26/16) s/p Left L3 steroid inj 09/2016 Dr Olsen Hypertriglyceridemia (Chronic 12/31/14) Distal paresthesia (Chronic 02/16/14) nocturnal warm feelings both feet began about 11/2013, ?early peripheral neuropathy DM neuro manif type II (Chronic) Chronic pain disorder (Chronic 10/26/16) multiple sources; s/p Chronic Pain workshop [facility], s/p PT; s/p [facility] Chronic obstructive pulmonary disease (Chronic 01/21/17) Dr Wright 12/201601/02/19 F/U with Dr Ibrahim Lumbar back pain with radiculopathy affecting left lower extremity (Chronic) Neuropathy, lateral femoral cutaneous nerve (Chronic) Diabetes mellitus, type II (Chronic) a. poor control b. 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 denies this Dyspnea on exertion (09/20/15) h/o ARDS due to Influenza B (03/2014); exacerbations 06/12/15 & 09/03/15; consult [facility], Pulmonary Adjustment disorder, unspecified (09/03/16) Acute gastroenteritis Encounter for physical therapy (04/16/14) s/p mechanical ventilation (04/16/14) s/p respiratory failure (04/16/14) a. secondary to influenza B and ARDS, requiring mechanical ventilation for four days, then extubated, reintubated and required another four days of mechanical ventilation, now on room air Influenza with respiratory manifestations (04/16/14) a. TYPE B INFLUENZA Surgical History History of cataract surgery Nuclear sclerotic cataract of left eye (~12/04/19) Cortical cataract of right eye (11/20/19) S/P TAVR (transcatheter aortic valve replacement) (~09/2017) Central line for TPN (03/31/14) with pneumonia Biopsy Skin of left yazidism (12/10/14) Dr. Kermit Edwards Final pathologic diagnosis-Sebottheic keratosis Family History Mother Stroke Father , CHF at age 88. CHF (congestive heart failure) Fluid overload Hypertension Social History Smoking/Tobacco Use Status: Current-Occasional Tobacco Type: cigarettes and cigars Tobacco: How many years used: 60 Quit status: considering quitting Counseling given: counseling >3 minutes Smoking risk assessment performed?: Yes Alcohol Intake: former Drug use: Never Substance use type: does not use Caregiver/Support person: No Household members: none Housing: apartment Number of Children: 0 Communication Needs: Corrective Lenses Education Level: high school Do you need help understanding health information?: Rarely Pets and animals: Yes Pets and animals: cat(s) Current gender identity: male What is your relationship status?: refused to answer How often do you talk on the phone with friends or family?: twice per week How often do you get together with friends or relatives?: once per week How often do you attend amish or mormon services?: decline to answer Do you belong to any clubs or organized social groups?: no Panel score (0-1 are the most socially isolated patients): 1 What type of physical activity do you participate in: bicycling and other Details: stationary bike Duration: 15-30 minutes/day Frequency: 3-4 times per week Rama/Druze: Evangelical Special rama needs: No Agree to transfusion: Yes Seatbelt use: always Helmet use: No Drive intox or ride w/intox automation driver: No Water heater temp set <120 deg: Yes Working smoke detector in home: Yes Fire extinguisher in home: Yes Carbon monox detector in home: Yes Do you feel safe at home: Yes Do you feel safe in your relationship?: Yes Additional Social history: Exposure to- asbestos, chemicals an toxins. POCUS Exam (ED) Limited Cardiac Exam DATE OF EXAM: 04/16/24 TIME OF EXAM: 16:45 PROVIDER THAT PERFORMED THE STUDY: Dagmar Lopez IS THIS A REPEAT EXAM DURING THIS ENCOUNTER: no REASON FOR EXAM: Chest pain and Dyspnea VISUALIZED STRUCTURES: Four Chambers and IVC VIEW OBTAINED: Subxiphoid PERTINENT FINDINGS/IMPRESSION: IVC inspiratory collapsability and Other Hyperdynamic ; No pericardial effusion Exam complete Limited Thoracic Lung Exam DATE OF EXAM: 04/16/24 TIME OF EXAM: 16:45 PROVIDER THAT PERFORMED THE STUDY: Dagmar Lopez REASON FOR EXAM: Hypoxia and Shortness ofBreath VISUALIZED STRUCTURES: right anterior and left anterior PERTINENT FINDINGS/IMPRESSION: B-lines/left side and B-lines/right side Exam complete
[2024-04-16 17:11] LABS: Abs Immature Grans 0.02 10^3/uL (0.0-0.06); Absolute Basophil Count 0.03 10^3/uL (0.0-0.2); Absolute Eosinophil Count 0.08 10^3/uL (0.0-0.7); Absolute Lymphocyte Count 0.95 10^3/uL (1.2-3.4); Absolute Monocyte Count 0.48 10^3/uL (0.1-0.8); Absolute Neutrophil Count 5.69 10^3/uL (1.2-6.7); BE (Venous) -3 mmol/L (-2-3); Basophils % 0.4 %; Eosinophils % 1.1 %; HCO3 (Venous) 23 mmol/L (23-28); HCT 45.1 % (40.0-50.0); HGB 14.8 g/dL (13.5-17.5); Immature Grans % 0.3 %; Lymphocytes % 13.1 %; MCH 30.1 pg (27.0-33.0); MCHC 32.8 % (32.0-36.0); MCV 92 fL (80-95); MPV 8.8 fL (8.0-11.0); Monocytes % 6.6 %; Neutrophils % 78.5 %; O2 Sat (Venous) 95 %; Platelet Count 199 10^3/uL (130-400); RBC 4.92 10^6/uL (4.36-5.78); RDW 14.6 % (11.8-14.1); RDW-SD 49.1 fL; TCO2 (Venous) 20 mmol/L (24-29); WBC 7.25 10^3/uL (4.4-10.8); pCO2 (Venous) 41 mmHg (41-51); pH (Venous) 7.35 (7.31-7.41); pO2 (Venous) 75 mmHg
[2024-04-16 17:21] LABS: INR 1.1 (0.9-1.1)
[2024-04-16 17:40] LABS: ALT 25 U/L (16-63); AST 26 U/L (15-37); Albumin 3.8 g/dL (3.4-5.0); Alkaline Phosphatase 38 U/L (46-116); Anion Gap 14.4 mmol/L (3-11); BUN 18 mg/dL (7-18); Bilirubin, Total 0.51 mg/dL (0.2-1.0); CO2 23.6 mmol/L (21.0-32.0); CREATININE 1.1 mg/dL (0.70-1.30); Calcium 9.6 mg/dL (8.5-10.1); Chloride 105 mmol/L (98-107); Estimated GFR 68.29 (mL/min/1.73m2); Glucose 157 mg/dL (74-106); Magnesium 1.6 mg/dL (1.8-2.4); NT-proBNP 2426 pg/mL (<300); Potassium 3.9 mmol/L (3.5-5.1); Sodium 143 mmol/L (136-145); Total Protein 7.6 g/dL (6.4-8.2); Troponin I 65 ng/L (<or=76)
[2024-04-16] MEDS: MAGNESIUM SULFATE 2 GM/50 ML BAG IV_INF (18:11)
[2024-04-16 18:37] LABS: Troponin I 104 ng/L (<or=76)
[2024-04-16] MEDS: MORPHine 4 MG/ML SYR IVP (19:26)
[2024-04-16] MEDS: Heparin in 0.45% NaCl 25,000 UNIT/250 ML BAG 10 UNIT IVINF (19:30)
[2024-04-16] MEDS: Clopidogrel 300 MG TAB PO (20:22)
[2024-04-16] MEDS: Atorvastatin 40 MG TAB 80 MG PO (20:22)
[2024-04-16 20:35] LABS: Troponin I 136 ng/L (<or=76)
--- NOTE | 2024-04-16 21:45 | RT.EKG_ITS ---
APPROVED REPORT Exam: Resting ECG Reason for Exam: CP Patient Location: E HR:101 bpm ECG Measurements Heart Rate 101 AXIS WA 149 P 60 QRSd 177 QRS 251 QT 436 T 84 QTc 565 Conclusion Atrial-sensed ventricular-paced rhythm, rate 101 No significant interval change from prior Sgarbossa negative
--- NOTE | 2024-04-16 22:37 | NUR.NOTE ---
Nursing Note: @9129 s/p report from RN Diane noted the Heparin gtt rate in eMAR did not match pump rate and reported rate per RN. Upon package reinspector meant to write 10mL/hr in eMAR (also 1000units/hr). Edited reflect gtt rate on IV pump and reported.
--- NOTE | 2024-04-16 22:43 | W.PM.HP.N ---
Date of service: 04/16/24 Time of Service: 22:43 Assessment and Plan Assessment and plan (1) Acute non-ST elevation myocardial infarction (NSTEMI): Start date: 04/16/24 Status: Acute Assessment and plan: This is a 79-year-old gentleman with respiratory symptoms worsening of the last couple days and being positive for RSV which may have prompted his exacerbation of CHF. He had increased hypoxemia and appeared to be in CHF by chest x-ray responding to diuresis. We will continue IV nitroglycerin with morphine and Ativan to be used to see if his pain can be improved. Much of his residual pain appears to be musculoskeletal. Continue to trend troponins on heparin infusion. Also will continue to diurese with Lasix. Patient missed all of his medication during the day and will be given IV metoprolol one-time dose with his usual meds began first in the morning. If he continues to be tachycardic with hypertension, another dose of IV metoprolol may be given. He was loaded with Plavix and will continue Plavix 75 mg daily with baby aspirin. He was given high-dose atorvastatin which will be continued. Once patient is optimally treated for his acute CHF, he will be transfer [place] [facility] [place] He is a DNR/DNI. (2) Acute exacerbation of CHF (congestive heart failure): Start date: 04/16/24 Status: Acute Assessment and plan: Patient is chronically on Lasix as needed for weight gain or peripheral edema and last echocardiogram at this institution was in 2019 where he had a preserved left ventricular ejection fraction. He does have a history of cardiomyopathy and most likely echocardiograms have been updated at outside institution. He also has associated heart block. Patient will be diuresed with IV Lasix while hospitalized maximizing diuresis before transfer for cardiac catheterization at [facility] He also has been treated for his non-STEMI. (3) Acute hypoxic respiratory failure: Start date: 04/16/24 Status: Acute Assessment and plan: Most likely secondary to acute RSV infection exacerbate his COPD and CHF but also complicated by non-STEMI. O2 supplementation and BiPAP as needed. Patient does have sleep apnea. (4) RSV (respiratory syncytial virus infection): Start date: 04/16/24 Status: Acute Assessment and plan: Supportive care with increased oxygen supplementation and nebulizers as well as diuresis for CHF exacerbation. (5) COPD (chronic obstructive pulmonary disease): Status: Chronic Assessment and plan: Patient did receive 1 dose of Solu-Medrol we will continue increased oxygen supplementation on nebulizers as needed and hopefully will have less symptoms as he diuresis. (6) Obstructive sleep apnea syndrome: Status: Chronic Assessment and plan: If patient is on CPAP or BiPAP at night, continue while hospitalized. He is at least on nighttime oxygen supplementation. (7) Hypomagnesemia: Start date: 04/16/24 Status: Acute Assessment and plan: Repleted IV and follow-up lab in the morning. (8) Complete heart block: Status: Chronic Assessment and plan: With biventricular ICD. Echocardiogram to be followed at [facility]. (9) Biventricular ICD (implantable cardioverter-defibrillator) in place: Status: Chronic Assessment and plan: Cardiac monitoring while in hospital. (10) DM neuro manif type II: Status: Chronic Assessment and plan: Hold outpatient medical therapy with glucometers before meals and at bedtime and moderate sliding scale short acting insulin coverage. (11) Chronic pain disorder: Status: Chronic Assessment and plan: Patient is chronically on oxycodone up to twice daily and VPMS was reviewed with appropriate prescribing. Patient appears to be low risk and no drug screen was performed in the ED the patient now receiving Ativan and morphine. This will not be performed this hospitalization. PCP should follow-up monitoring. (12) Lumbar back pain with radiculopathy affecting left lower extremity: Status: Chronic Assessment and plan: Continue pain management with morphine for now and patient's oxycodone being held. Long-term he needs continued therapy and maintenance to maximize mobility and improved lifestyle. He appears to be monitored appropriately. History of Present Illness History of Present Illness Chief Complaint: Shortness of breath for 1 day, awakening with resting chest pain in mornin Narrative: This is a 79-year-old male patient has a history of CAD with CHF and status post TAVR with pacemaker as well as associated medical problems of COPD which appears to be exacerbated and ANNABELLE wearing oxygen at night, diabetes on basal insulin and oral treatment, CKD and hypertension. He also has chronic musculoskeletal pain on chronic low-dose narcotics. He presents with a 2 day history of endorsing shortness of breath with cough and the morning of admission the patient was up early in the morning drinking orange juice with sudden onset of retrosternal chest pain radiating to his left arm with diaphoresis. He states that his left arm always hurts with his back pain but this was different. He did call EMS who assessed him as being hypoxic while on his nighttime oxygen and also treated for possible COPD exacerbation with lung findings having decreased aeration with wheezing. The EMS gave patient 125 mg of Solu-Medrol and 3 nebulizer treatments. He was also given nitroglycerin and aspirin sublingually at the scene with slight improvement but persistent chest pain. In the ED the patient was assessed as having an acute non-STEMI with probable demand ischemia with his exacerbation of CHF. [facility] [place] was [place] and recommended nitroglycerin drip and heparin infusion which was initiated. Patient was given loading Plavix 300 mg and high-dose atorvastatin. The chest pain persisted but was decreased intensity and his troponins were slightly elevated slightly trending upward. [facility] [place] also wanted patient maximally diuresed or exacerbate CHF before being transferred to their facility for possible cardiac catheterization. Patient was admitted to the ICU for continued treatment and monitoring. He is quite anxious and will receive morphine along with some low-dose Ativan being quite anxious and having pressured speech. He missed most of his medicines during the day and he will be given a dose of IV metoprolol because of tachycardia and his anxiety. He does have an element of musculoskeletal chest pain to palpation of his chest and arm and morphine may help this as well with patient being on low-dose oxycodone daily. We will continue treating his COPD exacerbation and in fact the patient did test positive for RSV and this may be contribute to his several day history of respiratory symptoms prior to admission. This also could have stressed to him, exacerbating his CHF. The patient is a DNR/DNI but does want aggressive therapy of reversible problems. [facility] [place] advised will take patient in transfer for possible cardiac catheterization after optimizing diuresis for CHF exacerbation. Review of Systems Narrative: 13 point review of systems otherwise unrevealing or stable. His acute respiratory symptoms most likely were from RSV infection. He is chronically on low-dose oxycodone for musculoskeletal pain. [facility] All Active Problems (Updated 04/17/24 @ 02:43 by James Ricks) RSV (respiratory syncytial virus infection) (Acute) Hypomagnesemia (Acute) Acute hypoxic respiratory failure (Acute) Pulmonary edema (Acute) Acute exacerbation of CHF (congestive heart failure) (Acute) Acute non-ST elevation myocardial infarction (NSTEMI) (Acute) Acute kidney injury (Acute) Cardiomyopathy (Acute) Vitamin B12 deficiency (Acute) Biventricular ICD (implantable cardioverter-defibrillator) in place (Chronic 01/03/18) [employer] PSYCHOLOGICAL OPERATIONS OFFICER-D PACEMAKER DEPENDENT - EXQUISITELY SENSITIVE TO TESTING Complete heart block (Chronic) Vitamin D deficiency (Acute) Fatigue (Acute) Other secondary cataract, bilateral (Acute) Constipation due to pain medication (Acute) ASCVD (arteriosclerotic cardiovascular disease) (Acute) Toe deformity (Acute) Neuropathy (Acute) Nail dystrophy (Acute) COPD (chronic obstructive pulmonary disease) (Chronic) Pulmonary nodules (Acute) Obstructive sleep apnea syndrome (Chronic ~2016) Personal history of nicotine dependence (Acute) History of transcatheter aortic valve replacement (TAVR) (Acute) Diabetes mellitus type II, controlled (Chronic) Advance directive on file (Acute) CHF (congestive heart failure) (Chronic) Chest pain (Acute) Sciatica of left side (Acute 03/26/16) Dermatitis (Acute 02/08/11) Chronic kidney disease (CKD) stage G3a/A1, moderately decreased glomerular filtration rate (GFR) between 45-59 mL/min/1.73 square meter and albuminuria creatinine ratio less than 30 mg/g (Acute 05/24/17) Biventricular ICD (implantable cardioverter-defibrillator) in place (Acute) Diverticulosis (Acute) 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 Left L3 radiculopathy: Pain clinic injec 09/2016. Left lumbar radiculopathy (Chronic 10/26/16) s/p Left L3 steroid inj 09/2016 Dr Olsen Hypertriglyceridemia (Chronic 12/31/14) Distal paresthesia (Chronic 02/16/14) nocturnal warm feelings both feet began about 11/2013, ?early peripheral neuropathy DM neuro manif type II (Chronic) Chronic pain disorder (Chronic 10/26/16) multiple sources; s/p Chronic Pain workshop [facility], s/p PT; s/p [place] workshop Chronic obstructive pulmonary disease (Chronic 01/21/17) Dr Wright 12/201601/02/19 F/U with Dr Ibrahim Lumbar back pain with radiculopathy affecting left lower extremity (Chronic) Neuropathy, lateral femoral cutaneous nerve (Chronic) Diabetes mellitus, type II (Chronic) a. poor control b. recent self hydration with two 2 L bottles of gingerale Hypertension (Chronic) Hyperlipidemia (Chronic) Obesity (Chronic) Peripheral neuropathy (Chronic) Weakness (Chronic 04/16/14) Medical History Cardiac resynchronization therapy defibrillator (PSYCHOLOGICAL OPERATIONS OFFICER-D) in place (~01/03/18) Sciatica Eczema History of bacteremia Cardiac murmur (02/08/11) Acute kidney injury superimposed on chronic kidney disease pt. denies this Dyspnea on exertion (09/20/15) h/o ARDS due to Influenza B (03/2014); exacerbations 06/12/15 & 09/03/15; consult [facility], Pulmonary Adjustment disorder, unspecified (09/03/16) Acute gastroenteritis Encounter for physical therapy (04/16/14) s/p mechanical ventilation (04/16/14) s/p respiratory failure (04/16/14) a. secondary to influenza B and ARDS, requiring mechanical ventilation for four days, then extubated, reintubated and required another four days of mechanical ventilation, now on room air Influenza with respiratory manifestations (04/16/14) a. TYPE B INFLUENZA Surgical History History of cataract surgery Nuclear sclerotic cataract of left eye (~12/04/19) Cortical cataract of right eye (11/20/19) S/P TAVR (transcatheter aortic valve replacement) (~09/2017) Central line for TPN (03/31/14) with pneumonia Biopsy Skin of left mandaeism (12/10/14) Dr. Kermit Edwards Final pathologic diagnosis-Sebottheic keratosis Family History Mother Stroke Father , CHF at age 88. CHF (congestive heart failure) Fluid overload Hypertension Social History Smoking/Tobacco Use Status: Current-Occasional Tobacco Type: cigarettes and cigars Tobacco: How many years used: 60 Quit status: considering quitting Counseling given: counseling >3 minutes Smoking risk assessment performed?: Yes Alcohol Intake: former Drug use: Never Substance use type: does not use Caregiver/Support person: No Household members: none Housing: apartment Number of Children: 0 Communication Needs: Corrective Lenses Education Level: high school Do you need help understanding health information?: Rarely Pets and animals: Yes Pets and animals: cat(s) Current gender identity: male What is your relationship status?: refused to answer How often do you talk on the phone with friends or family?: twice per week How often do you get together with friends or relatives?: once per week How often do you attend quaker or adventism services?: decline to answer Do you belong to any clubs or organized social groups?: no Panel score (0-1 are the most socially isolated patients): 1 What type of physical activity do you participate in: bicycling and other Details: stationary bike Duration: 15-30 minutes/day Frequency: 3-4 times per week Rama/Judaism: Uatsdin Special rama needs: No Agree to transfusion: Yes Seatbelt use: always Helmet use: No Drive intox or ride w/intox cab driver: No Water heater temp set <120 deg: Yes Working smoke detector in home: Yes Fire extinguisher in home: Yes Carbon monox detector in home: Yes Do you feel safe at home: Yes Do you feel safe in your relationship?: Yes Additional Social history: Exposure to- asbestos, chemicals an toxins. Meds Allergies and Home Medications Allergies Allergy/AdvReac Type Severity Reaction Status Date / Time codeine AdvReac Intermediate GI Upset Verified 04/10/24 08:09 gabapentin AdvReac Intermediate Dizziness/L Verified 04/10/24 08:09 ightheade Home Medications ?Medication ?Instructions ?Recorded ?Confirmed ?Type aspirin 81 mg tablet,delayed 81 mg PO DAILY 05/05/12 04/16/24 History release nebulizers (Devilbiss Disposable #1 ea 11/14/15 04/16/24 History Nebulizer misc) acetaminophen 325 mg tablet 325 mg PO Q4H PRN 05/16/18 04/16/24 History (Tylenol) albuterol sulfate 2.5 mg/3 mL 2.5 mg (3 mL) UPD Q2H PRN PRN 09/26/18 04/16/24 Rx (0.083 %) solution for nebulization shortness of breath or wheezing #180 mL Oxygen 11/08/22 04/16/24 History albuterol sulfate 90 mcg/actuation 2 puff inhalation 6XD #8.5 grams 09/12/23 04/16/24 Rx aerosol inhaler (Ventolin HFA) amlodipine 10 mg tablet 10 mg PO DAILY #90 tab-caps 09/12/23 04/16/24 Rx atorvastatin 40 mg tablet 40 mg PO QHS #90 tabs 09/12/23 04/16/24 Rx carvedilol 12.5 mg tablet 12.5 mg PO BID #180 tabs 09/12/23 04/16/24 Rx cephalexin 500 mg capsule 500 mg PO BID #180 caps 09/12/23 04/16/24 Rx colchicine 0.6 mg tablet 0.6 mg PO BID PRN gout attack #30 09/12/23 04/16/24 Rx tabs cyclobenzaprine 10 mg tablet 10 mg PO TID PRN muscle spasm #270 09/12/23 04/16/24 Rx tab-caps fenofibrate nanocrystallized 145 145 mg PO DAILY #90 tabs 09/12/23 04/16/24 Rx mg tablet fluticasone fur. 100 mcg-umeclid See Rx Instructions .Route 09/12/23 04/16/24 Rx 62.5 mcg-vilant 25 mcg .COMPLEX #60 ea inhalat.powder (Trelegy Ellipta) fluticasone propionate 50 2 spray NS DAILY #1 unit 09/12/23 04/16/24 Rx mcg/actuation nasal spray,suspension (Flonase Allergy Relief) furosemide 20 mg tablet 20 mg PO DAILY edema or greater 09/12/23 04/16/24 Rx than 7 lb weight gain in one week #90 tabs glipizide 5 mg tablet 5 mg PO BID #180 tabs 09/12/23 04/16/24 Rx lisinopril 40 mg tablet 80 mg (2 x 40 mg) PO DAILY #180 09/12/23 04/16/24 Rx tabs metformin 500 mg tablet 1,000 mg (2 x 500 mg) PO BID #360 09/12/23 04/16/24 Rx tabs mirtazapine 15 mg tablet (Remeron) 15 mg PO QPM #90 tabs 09/12/23 04/16/24 Rx nitroglycerin 0.4 mg sublingual 0.4 mg sublingual PRN chest pain 09/12/23 04/16/24 Rx tablet (Nitrostat) #30 tabs triamcinolone acetonide 0.1 % 1 applic topical BID #30 grams 09/12/23 04/16/24 Rx topical cream blood sugar diagnostic (Accu-Chek #300 strips 01/27/24 04/16/24 Rx Sherri Plus test strips) insulin glargine 100 unit/mL (3 See Rx Instructions subcut BID #15 01/27/24 04/16/24 Rx mL) subcutaneous pen (Basaglar mL KwikPen U-100 Insulin) lancets (Accu-Chek Softclix #100 ea 01/27/24 04/16/24 Rx Lancets) pen needle, diabetic 32 gauge x #200 ea 01/27/24 04/16/24 Rx 5/32 (BD Ultra-Fine Rebecca Pen Needle) semaglutide 1 mg/dose (2 mg/1.5 2 mg (1.5 mL) subcut QWEEK 28 days 03/02/24 04/16/24 Rx mL) subcutaneous pen injector #6 mL oxycodone 10 mg tablet 10 mg PO BID PRN pain #60 tabs 04/10/24 04/16/24 Rx oxycodone 10 mg tablet 10 mg PO BID PRN pain #60 tabs 04/10/24 04/16/24 Rx oxycodone 10 mg tablet 10 mg PO BID PRN pain #60 tabs 04/10/24 04/16/24 Rx Exam Narrative Exam Narrative: General: Patient is very anxious, alert and oriented x 3 with pressured speech. He is mesomorphic and mildly obese. He is in moderate distress with his chest discomfort. HEENT: Normocephalic, eyes with pupils equal and reactive light symmetrically, extraocular movement intact and sclera anicteric. Oropharynx with slightly dry mucosa and fair dentition. Neck: Supple without JVD. Back: Slightly kyphotic with decreased range of motion and loss of lumbar lordosis, no CVA tenderness. Lungs: Crackles equal breath sound diffusely with no focalizing rales or rhonchi. Scant expiratory wheeze. Fair aeration. Chest: Palpable subcutaneous pacemaker left upper chest. Heart: Tachycardic rate with normal rhythm, slight systolic murmur sternal border. Abdomen: Normal contour, soft nontender to palpation no palpable hepatosplenomegaly. Bowel sounds positive all quadrants. Genitalia/rectal: Exam deferred. Extremities: Without clubbing, cyanosis or pitting edema. Good capillary refill. Skin: Normal color with darkly tanned and actinic changes over sun exposed areas, warm and dry. Neuro: Cranial nerves II to XII grossly intact, no focalizing motor deficits. No tremor. Psych: Anxious with pressured speech, normal mood. No abnormal thought processes. Remote and recent memory grossly intact. Results Imaging Additional studies: RSV positive Imaging Studies: EXAM: XR PORTABLE CHEST AP CLINICAL HISTORY: Chest pain, SOB, hypoxia TECHNIQUE: 2D digital imaging was performed of the chest. One image was obtained. An AP view was obtained. COMPARISON: CR XR CHEST 2V PA LATERAL from 05/06/2018 CR XR PORTABLE CHEST AP from 05/08/[address] CHEST LUNG CANCER SCREEN from 06/18/2022 FINDINGS: MEDIASTINUM: Normal. HEART: Normal. Cardiac pacing device is in place. PULMONARY VASCULATURE: Normal. LUNGS: There is streaky interstitial markings in the perihilar regions bilaterally. No focal consolidating infiltrate is seen. PLEURAL SPACE: No pleural effusion or pneumothorax. BONE:Within normal limits for the patient's age. OTHER FINDINGS:Normal. IMPRESSION: Streaky interstitial markings seen in the perihilar regions bilaterally. Differential considerations include atelectasis, pneumonitis or edema. Please correlate clinically. No focal consolidating infiltrates are seen. Labs 04/16/24 17:04 04/16/24 17:04 Labs: Laboratory Results - last 24 hr 04/16/24 04/16/24 04/16/24 17:04 18:01 19:18 WBC 7.25 RBC 4.92 Hgb 14.8 Hct 45.1 MCV 92 MCH 30.1 MCHC 32.8 RDW 14.6 H Plt Count 199 MPV 8.8 Immature Gran % 0.3 Neutrophils % 78.5 Lymphocytes % 13.1 Monocytes % 6.6 Eosinophils % 1.1 Basophils % 0.4 Nucleated RBC % 0.0 Absolute Neutrophils 5.69 Absolute Lymphocytes 0.95 L Absolute Monocytes 0.48 Absolute Eosinophils 0.08 Absolute Basophils 0.03 PT 11.0 INR 1.1 APTT 27.0 VBG pH 7.35 VBG pCO2 41 VBG pO2 75 VBG HCO3 23 VBG Total CO2 20 L VBG O2 Saturation 95 VBG Base Excess -3 L Sodium 143 Potassium 3.9 Chloride 105 Carbon Dioxide 23.6 Anion Gap 14.4 H BUN 18 Creatinine 1.1 Est GFR (CKD-EPI 2020) 68.29 Glucose 157 H Calcium 9.6 Magnesium 1.6 L Total Bilirubin 0.51 AST 26 ALT 25 Alkaline Phosphatase 38 L Troponin I 65 104 H* NT-Pro-B Natriuret Pep 2426 H Total Protein 7.6 Albumin 3.8 04/16/24 19:58 WBC RBC Hgb Hct MCV MCH MCHC RDW Plt Count MPV Immature Gran % Neutrophils % Lymphocytes % Monocytes % Eosinophils % Basophils % Nucleated RBC % Absolute Neutrophils Absolute Lymphocytes Absolute Monocytes Absolute Eosinophils Absolute Basophils PT INR APTT VBG pH VBG pCO2 VBG pO2 VBG HCO3 VBG Total CO2 VBG O2 Saturation VBG Base Excess Sodium Potassium Chloride Carbon Dioxide Anion Gap BUN Creatinine Est GFR (CKD-EPI 2020) Glucose Calcium Magnesium Total Bilirubin AST ALT Alkaline Phosphatase Troponin I 136 H* NT-Pro-B Natriuret Pep Total Protein Albumin Last Vital Signs Temp 36.4 C L 04/16/24 16:36 Pulse 107 H 04/16/24 21:41 Resp 21 04/16/24 21:41 BP 150/70 H 04/16/24 21:41 Pulse Ox 93 04/16/24 20:38 Time Spent Time spent with Patient: >75 minutes Time was spent: preparing to see the patient(eg.review tests), obtaining and/or reviewing separately otained hiistory, ordering medications,tests, procedures, referring, communicating with other health child care coordinator, indepentently interpreting results, counseling the patient and care coordination
[2024-04-16 23:52] LABS: COVID-19 PCR Negative (Negative); Influenza A PCR Negative (Negative); Influenza B PCR Negative (Negative)
[2024-04-16 23:58] LABS: Source Nasopharynx
[2024-04-16 23:59] LABS: RSV PCR Positive (Negative)
[2024-04-17] VITALS (115 sets, daily range): BP systolic 92–145; BP diastolic 45–101; PULSE 64–127; RESP 10–35; TEMP 36.8–37.7; O2SAT 88–97
--- NOTE | 2024-04-17 00:56 | W.PC.ACHO ---
Registration Status: Primary Language: Preferred Language: ED Information & Data Chief Complaint Chest Pain 04/16/24 17:09 Triage Note chest pain started yesterday 04/16/24 16:36 , patient SOB, sweating. Patient used rescue inhaler. Patient had duo neb, albuterol and solu-mederol by EMS. 324 of ASA and 0.8 of nitro by EMS. 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 COATING SUPERVISOR-D) in place (~01/03/18) Sciatica Eczema History of bacteremia Cardiac murmur (02/08/11) Acute kidney injury superimposed on chronic kidney disease Dyspnea on exertion (09/20/15) Adjustment disorder, unspecified (09/03/16) Acute gastroenteritis Encounter for physical therapy (04/16/14) s/p mechanical ventilation (04/16/14) s/p respiratory failure (04/16/14) Influenza with respiratory manifestations (04/16/14) (Last Reviewed 04/16/24 @ 22:43 by Jamse Ricks) History of cataract surgery Nuclear sclerotic cataract of left eye (~12/04/19) Cortical cataract of right eye (11/20/19) S/P TAVR (transcatheter aortic valve replacement) (~09/2017) Central line for TPN (03/31/14) Biopsy Skin of left quaker (12/10/14) Most Recent Vital Signs Temperature 36.4 C L 04/16/24 16:36 Temperature Source Oral 04/16/24 16:36 Pulse 97 H 04/16/24 23:13 Pulse 89 04/16/24 21:41 Respiratory Rate 21 04/16/24 23:13 Respiratory Effort Short of Breath 04/16/24 17:09 Respiratory Depth Shallow 04/16/24 17:09 Respiratory Pattern Tachypnea 04/16/24 17:09 Blood Pressure 133/52 L 04/16/24 23:11 Blood Pressure Mean 97 04/16/24 21:41 Blood Pressure Position Sitting 04/16/24 16:36 Pulse Oximetry 93 04/16/24 23:13 Oxygen Delivery Method Room Air 04/16/24 16:36 Oxygen Flow Rate 0 04/16/24 16:36 Fraction of Inspired Oxygen (FIO2) 30 04/16/24 18:41 Allergies codeine Adverse Reaction (Intermediate, Verified 04/10/24 08:09) GI Upset does tolerated codeine cough syrup 06/2015 gabapentin Adverse Reaction (Intermediate, Verified 04/10/24 08:09) Dizziness/Lightheade prescribed before 04/2012 Precautions Isolation Standard precaution 04/16/24 17:09 Active Medications Generic Name Dose Route Start Last Admin Trade Name Jurgen PRN Reason Stop Dose Admin Nitroglycerin/Dextrose 50 mg in 250 mls @ 3 mls/hr 04/16/24 16:45 04/16/24 20:56 IV 50 mcg/min INFUSION KARELY 15 mls/hr Titration Protocol 10 MCG/MIN Heparin Sodium/Sodium Chloride 25,000 unit in 250 mls @ 0 mls/hr 04/16/24 19:15 04/16/24 19:30 IVINF 10 mls/hr INFUSION KARELY 10 mls/hr Administration Protocol Per Protocol IV IV Catheter Type [Left Forearm Saline Lock ] IV Catheter Type [Right Saline Lock Forearm] IV Catheter Gauge [Left 18 Forearm] IV Catheter Gauge [Right 20 Forearm] Diagnostics 04/16/24 04/16/24 04/16/24 Range/Units 23:10 19:58 19:18 WBC (4.4-10.8) 10^3/uL RBC (4.36-5.78) 10^6/uL Hgb (13.5-17.5) g/dL Hct (40.0-50.0) % MCV (80-95) fL MCH (27.0-33.0) pg MCHC (32.0-36.0) % RDW (11.8-14.1) % Plt Count (130-400) 10^3/uL MPV (8.0-11.0) fL Immature Gran % % Neutrophils % % Lymphocytes % % Monocytes % % Eosinophils % % Basophils % % Nucleated RBC % (0.0-0.3) % Absolute Neutrophils (1.2-6.7) 10^3/uL Absolute Lymphocytes (1.2-3.4) 10^3/uL Absolute Monocytes (0.1-0.8) 10^3/uL Absolute Eosinophils (0.0-0.7) 10^3/uL Absolute Basophils (0.0-0.2) 10^3/uL PT (9.1-11.1) sec INR (0.9-1.1) APTT 27.0 (20.6-30.2) sec VBG pH (7.31-7.41) VBG pCO2 (41-51) mmHg VBG pO2 mmHg VBG HCO3 (23-28) mmol/L VBG Total CO2 (24-29) mmol/L VBG O2 Saturation % VBG Base Excess (-2-3) mmol/L Sodium (136-145) mmol/L Potassium (3.5-5.1) mmol/L Chloride (98-107) mmol/L Carbon Dioxide (21.0-32.0) mmol/L Anion Gap (3-11) mmol/L BUN (7-18) mg/dL Creatinine (0.70-1.30) mg/dL Est GFR (CKD-EPI 2020) (mL/min/1.73m2) Glucose (74-106) mg/dL Calcium (8.5-10.1) mg/dL Magnesium (1.8-2.4) mg/dL Total Bilirubin (0.2-1.0) mg/dL AST (15-37) U/L ALT (16-63) U/L Alkaline Phosphatase (46-116) U/L Troponin I 136 H* (<or=76) ng/L NT-Pro-B Natriuret Pep (<300) pg/mL Total Protein (6.4-8.2) g/dL Albumin (3.4-5.0) g/dL COVID-19 Source Nasopharynx SARS-CoV-2 (PCR) Negative (Negative) Influenza Type A (PCR) Negative (Negative) Influenza Type B (PCR) Negative (Negative) RSV (PCR) Positive A* (Negative) 04/16/24 04/16/24 Range/Units 18:01 17:04 WBC 7.25 (4.4-10.8) 10^3/uL RBC 4.92 (4.36-5.78) 10^6/uL Hgb 14.8 (13.5-17.5) g/dL Hct 45.1 (40.0-50.0) % MCV 92 (80-95) fL MCH 30.1 (27.0-33.0) pg MCHC 32.8 (32.0-36.0) % RDW 14.6 H (11.8-14.1) % Plt Count 199 (130-400) 10^3/uL MPV 8.8 (8.0-11.0) fL Immature Gran % 0.3 % Neutrophils % 78.5 % Lymphocytes % 13.1 % Monocytes % 6.6 % Eosinophils % 1.1 % Basophils % 0.4 % Nucleated RBC % 0.0 (0.0-0.3) % Absolute Neutrophils 5.69 (1.2-6.7) 10^3/uL Absolute Lymphocytes 0.95 L (1.2-3.4) 10^3/uL Absolute Monocytes 0.48 (0.1-0.8) 10^3/uL Absolute Eosinophils 0.08 (0.0-0.7) 10^3/uL Absolute Basophils 0.03 (0.0-0.2) 10^3/uL PT 11.0 (9.1-11.1) sec INR 1.1 (0.9-1.1) APTT (20.6-30.2) sec VBG pH 7.35 (7.31-7.41) VBG pCO2 41 (41-51) mmHg VBG pO2 75 mmHg VBG HCO3 23 (23-28) mmol/L VBG Total CO2 20 L (24-29) mmol/L VBG O2 Saturation 95 % VBG Base Excess -3 L (-2-3) mmol/L Sodium 143 (136-145) mmol/L Potassium 3.9 (3.5-5.1) mmol/L Chloride 105 (98-107) mmol/L Carbon Dioxide 23.6 (21.0-32.0) mmol/L Anion Gap 14.4 H (3-11) mmol/L BUN 18 (7-18) mg/dL Creatinine 1.1 (0.70-1.30) mg/dL Est GFR (CKD-EPI 2020) 68.29 (mL/min/1.73m2) Glucose 157 H (74-106) mg/dL Calcium 9.6 (8.5-10.1) mg/dL Magnesium 1.6 L (1.8-2.4) mg/dL Total Bilirubin 0.51 (0.2-1.0) mg/dL AST 26 (15-37) U/L ALT 25 (16-63) U/L Alkaline Phosphatase 38 L (46-116) U/L Troponin I 104 H* 65 (<or=76) ng/L NT-Pro-B Natriuret Pep 2426 H (<300) pg/mL Total Protein 7.6 (6.4-8.2) g/dL Albumin 3.8 (3.4-5.0) g/dL COVID-19 Source SARS-CoV-2 (PCR) (Negative) Influenza Type A (PCR) (Negative) Influenza Type B (PCR) (Negative) RSV (PCR) (Negative) Intake and Output - 24 Hour Total 04/16/24 16:21 thru 04/16/24 20:56 Intake Total 72.0 Balance 72.0 Weight 89.358 kg Intake: IV 72.0 Falls Risk Assessment History of Falls No History 04/16/24 17:09 Contributing Factors No Factors 04/16/24 17:09 Ambulatory Aids Independent 04/16/24 17:09 Tubes/Lines None 04/16/24 17:09 Gait Evaluation No gait disturbance 04/16/24 17:09 Cognition No cognitive impairment 04/16/24 17:09 Fall Total Score 0 04/16/24 17:09 Level of Risk Standard/Low Risk 04/16/24 17:09 Problems (Last Reviewed 04/16/24 @ 22:43 by James Ricks) Hypomagnesemia (Acute) Acute hypoxic respiratory failure (Acute) Acute exacerbation of CHF (congestive heart failure) (Acute) Acute non-ST elevation myocardial infarction (NSTEMI) (Acute) Biventricular ICD (implantable cardioverter-defibrillator) in place (Chronic 01/03/18) Complete heart block (Chronic) COPD (chronic obstructive pulmonary disease) (Chronic) Obstructive sleep apnea syndrome (Chronic ~2016) DM neuro manif type II (Chronic) Chronic pain disorder (Chronic 10/26/16) Lumbar back pain with radiculopathy affecting left lower extremity (Chronic) Notes 04/16/24 22:37 Nursing Notes by Wilda Epps Nursing Note: @2237 s/p report from RN Diane noted the Heparin gtt rate in eMAR did not match pump rate and reported rate per RN. Upon crimping machine operator for metal meant to write 10mL/hr in eMAR (also 1000units/hr). Edited reflect gtt rate on IV pump and reported. Initialized on 04/16/24 22:37 - END OF NOTE v v v v v v v v v Sending and/or Receiving Nurses: Please use comment section below to note any information pertinent to the patient hand-off not included above. Information / Comments: RN states she will draw PTT prior to xfer to unit. No other questions Report received from: Charlette RUSSELL
[2024-04-17 01:27] LABS: PTT Activated 62.4 sec (20.6-30.2)
[2024-04-17] MEDS: Insulin Aspart 300 UNITS/3 ML PEN 8 UNITS SC (02:37)
[2024-04-17] MEDS: MORPHine 4 MG/ML SYR IVP ×2 (02:38→18:45)
[2024-04-17] MEDS: Furosemide 40 MG/4 ML VIAL IVP (02:39)
[2024-04-17] MEDS: Acetaminophen 325 MG TAB PO (02:41)
[2024-04-17] MEDS: Normal Saline Flush 10 ML SYR IVP ×3 (02:43→20:05)
[2024-04-17] MEDS: Metoprolol 5 MG/5 ML VIAL 2.5 MG IVP (03:02)
[2024-04-17 04:46] LABS: HCT 39.1 % (40.0-50.0); MCHC 32.7 % (32.0-36.0); MCV 92 fL (80-95); MPV 9.2 fL (8.0-11.0); Platelet Count 195 10^3/uL (130-400); RBC 4.26 10^6/uL (4.36-5.78); RDW 14.6 % (11.8-14.1); WBC 6.14 10^3/uL (4.4-10.8)
[2024-04-17 04:52] LABS: HGB 12.8 g/dL (13.5-17.5)
[2024-04-17 05:00] LABS: ALT 18 U/L (16-63); AST 22 U/L (15-37); Albumin 3.4 g/dL (3.4-5.0); Alkaline Phosphatase 32 U/L (46-116); Anion Gap 6.7 mmol/L (3-11); BUN 33 mg/dL (7-18); Bilirubin, Total 0.34 mg/dL (0.2-1.0); CO2 25.3 mmol/L (21.0-32.0); CREATININE 1.9 mg/dL (0.70-1.30); Calcium 9.1 mg/dL (8.5-10.1); Chloride 106 mmol/L (98-107); Estimated GFR 35.44 (mL/min/1.73m2); Glucose 253 mg/dL (74-106); Magnesium 2.3 mg/dL (1.8-2.4); Potassium 3.9 mmol/L (3.5-5.1); Sodium 138 mmol/L (136-145); Total Protein 6.8 g/dL (6.4-8.2)
[2024-04-17 05:07] LABS: TSH 0.53 uIU/mL (0.36-3.74)
[2024-04-17 05:10] LABS: Troponin I 125 ng/L (<or=76)
[2024-04-17] MEDS: Tiotropium Bromide-Respimat 10 PUFF INH 2 PUFF IH (08:01)
[2024-04-17 08:18] LABS: Troponin I 126 ng/L (<or=76)
[2024-04-17 08:19] LABS: PTT Activated 50.3 sec (20.6-30.2)
[2024-04-17] MEDS: Insulin Aspart 300 UNITS/3 ML PEN SC ×3 (08:37→17:20)
[2024-04-17] MEDS: Lisinopril 20 MG TAB 80 MG PO (08:44)
[2024-04-17] MEDS: Clopidogrel 75 MG TAB PO (08:44)
[2024-04-17] MEDS: Carvedilol 12.5 MG TAB PO ×2 (08:44→20:04)
[2024-04-17] MEDS: Aspirin E.C. 81 MG TABEC PO (08:44)
[2024-04-17] MEDS: Cephalexin 500 MG CAP PO ×2 (08:44→20:04)
[2024-04-17] MEDS: amLODIPine 10 MG TAB PO (08:44)
[2024-04-17] MEDS: Furosemide 40 MG/4 ML VIAL IV ×2 (08:45→16:07)
[2024-04-17] MEDS: Fenofibrate, Micronized 145 MG TAB PO (08:45)
--- NOTE | 2024-04-17 08:48 | PDOC.CMIN ---
Date of service: 04/17/24 Time of Service: 08:49 Care Management Initial Assmt Initial Assessment Reason for Hospitalization: NSTEMI, RSV, COPD Exacerbation, Functional Status/Living Situation Town of Residence: [place] Resides with: Alone Significant Other/Family: Out of area Employment Status: Retired Medications Medication Management: No Issues/Barriers identified Advance Directives Advance Directives: Do you have an Advance Directive: Y 06/29/14 09:47 AD On File at [facility]: Y 05/05/18 10:41 Date Asked 04/16/14 01/13/20 09:52 AD Date Reviewed 04/16/24 04/16/24 16:40 COLST On File at [facility] COLST Date Scanned Code Status Resuscitation Status DNR/DNI Portal Pt does not currently have a portal and education provided: Yes Insurance Coverage/Financial Issues Insurance: [employer] MCR Replacement Care Team Visit Care Team Role Provider Type Tien Galicia DO Primary Care Provider OSTEOPATHIC DOCTOR Lili Pitts Other Providers MEDICAL LEGAL INVESTIGATOR Jana Paz Other Providers MEDICAL LEGAL INVESTIGATOR Eve Alston Other Providers MEDICAL LEGAL INVESTIGATOR Tonya Vázquez RN Other Providers MEDICAL LEGAL INVESTIGATOR Dagmar Lopez MD Emergency Provider [facility] STAFF PHYSICIAN James Ricks Admit Provider NON-[facility] STAFF PHYSICIAN Attending Provider Discharge Anticipated Barriers to Discharge: Medical Status Patient/Family Education Needs: Review discharge instructions, discuss Ask Me Three Transportation: EMS Plan: Kam will transfer to [facility] when medically stable, pending bed availability. Social Determinants of Health Screening Social Determinants of Health last assessed: 04/17/24 Will the Patient Participate in the Screening?: Yes Do you worry about having a steady place to live?: no Problems where you live: lead paints of pipes In the past 12 months, have you had to go without electric, gas, oil or water in your home?: no Have you or anyone in your house had to go without enough food to eat?: no Has lack of transportation kept you from medical appointments or from doing things needed for daily living?: yes Has anyone in your life made you feel unsafe or unsupported?: no How hard is it for you to pay for the very basics like food, housing, medical care, and heating? Would you say it is:: Somewhat hard Do you want help finding or keeping work or a job?: I do not need or want help If for any reason you need help with day-to-day activities such as bathing, preparing meals, shopping, managing finances, etc., do you get the help you need?: I could use a little more help How often do you feel lonely or isolated from those around you?: Never Do you speak a language other than Portuguese at home?: No Does the patient want assistance with any of the above?: Yes Health Related Social Needs Health related social needs: inadequate housing (Z59.1), transportation insecurity (Z59.82), problems related to housing/economic circumstances (Z59.89) and problems with daily activities (Z73.9) PFSH All Active Problems (Updated 04/17/24 @ 02:43 by James Ricks) RSV (respiratory syncytial virus infection) (Acute) Hypomagnesemia (Acute) Acute hypoxic respiratory failure (Acute) Pulmonary edema (Acute) Acute exacerbation of CHF (congestive heart failure) (Acute) Acute non-ST elevation myocardial infarction (NSTEMI) (Acute) Acute kidney injury (Acute) Cardiomyopathy (Acute) Vitamin B12 deficiency (Acute) Biventricular ICD (implantable cardioverter-defibrillator) in place (Chronic 01/03/18) [employer] COLLECTION ADVISOR-D PACEMAKER DEPENDENT - EXQUISITELY SENSITIVE TO TESTING Complete heart block (Chronic) Vitamin D deficiency (Acute) Fatigue (Acute) Other secondary cataract, bilateral (Acute) Constipation due to pain medication (Acute) ASCVD (arteriosclerotic cardiovascular disease) (Acute) Toe deformity (Acute) Neuropathy (Acute) Nail dystrophy (Acute) COPD (chronic obstructive pulmonary disease) (Chronic) Pulmonary nodules (Acute) Obstructive sleep apnea syndrome (Chronic ~2017) Personal history of nicotine dependence (Acute) History of transcatheter aortic valve replacement (TAVR) (Acute) Diabetes mellitus type II, controlled (Chronic) Advance directive on file (Acute) CHF (congestive heart failure) (Chronic) Chest pain (Acute) Sciatica of left side (Acute 03/26/16) Dermatitis (Acute 02/08/11) Chronic kidney disease (CKD) stage G3a/A1, moderately decreased glomerular filtration rate (GFR) between 45-59 mL/min/1.73 square meter and albuminuria creatinine ratio less than 30 mg/g (Acute 05/24/17) Biventricular ICD (implantable cardioverter-defibrillator) in place (Acute) Diverticulosis (Acute) 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 terminal attack controller (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 Left L3 radiculopathy: Pain clinic injec 09/2016. Left lumbar radiculopathy (Chronic 10/26/16) s/p Left L3 steroid inj 09/2016 Dr Olsen Hypertriglyceridemia (Chronic 12/31/14) Distal paresthesia (Chronic 02/16/14) nocturnal warm feelings both feet began about 11/2013, ?early peripheral neuropathy DM neuro manif type II (Chronic) Chronic pain disorder (Chronic 10/26/16) multiple sources; s/p Chronic Pain workshop [facility], s/p PT; s/p [place] workshop Chronic obstructive pulmonary disease (Chronic 01/21/17) Dr Wright 12/201601/02/19 F/U with Dr Ibrahim Lumbar back pain with radiculopathy affecting left lower extremity (Chronic) Neuropathy, lateral femoral cutaneous nerve (Chronic) Diabetes mellitus, type II (Chronic) a. poor control b. recent self hydration with two 2 L bottles of gingerale Hypertension (Chronic) Hyperlipidemia (Chronic) Obesity (Chronic) Peripheral neuropathy (Chronic) Weakness (Chronic 04/16/14) Medical History Cardiac resynchronization therapy defibrillator (COLLECTION ADVISOR-D) in place (~01/03/18) Sciatica Eczema History of bacteremia Cardiac murmur (02/08/11) Acute kidney injury superimposed on chronic kidney disease pt. denies this Dyspnea on exertion (09/20/15) h/o ARDS due to Influenza B (03/2014); exacerbations 06/12/15 & 09/03/15; consult [facility], Pulmonary Adjustment disorder, unspecified (09/03/16) Acute gastroenteritis Encounter for physical therapy (04/16/14) s/p mechanical ventilation (04/16/14) s/p respiratory failure (04/16/14) a. secondary to influenza B and ARDS, requiring mechanical ventilation for four days, then extubated, reintubated and required another four days of mechanical ventilation, now on room air Influenza with respiratory manifestations (04/16/14) a. TYPE B INFLUENZA Surgical History History of cataract surgery Nuclear sclerotic cataract of left eye (~12/04/19) Cortical cataract of right eye (11/20/19) S/P TAVR (transcatheter aortic valve replacement) (~09/2017) Central line for TPN (03/31/14) with pneumonia Biopsy Skin of left yazdanism (12/10/14) Dr. Kermit Edwards Final pathologic diagnosis-Sebottheic keratosis Family History Mother Stroke Father , CHF at age 88. CHF (congestive heart failure) Fluid overload Hypertension Social History Smoking/Tobacco Use Status: Current-Occasional Tobacco Type: cigarettes and cigars Tobacco: How many years used: 60 Quit status: considering quitting Counseling given: counseling >3 minutes Smoking risk assessment performed?: Yes Alcohol Intake: former Drug use: Never Substance use type: does not use Caregiver/Support person: No Household members: none Housing: apartment Number of Children: 0 Communication Needs: Corrective Lenses Education Level: high school Do you need help understanding health information?: Rarely Pets and animals: Yes Pets and animals: cat(s) Current gender identity: male What is your relationship status?: refused to answer How often do you talk on the phone with friends or family?: twice per week How often do you get together with friends or relatives?: once per week How often do you attend mandaen or sabianist services?: decline to answer Do you belong to any clubs or organized social groups?: no Panel score (0-1 are the most socially isolated patients): 1 What type of physical activity do you participate in: bicycling and other Details: stationary bike Duration: 15-30 minutes/day Frequency: 3-4 times per week Rama/Quaker: Church Special rama needs: No Agree to transfusion: Yes Seatbelt use: always Helmet use: No Drive intox or ride w/intox stake driver: No Water heater temp set <120 deg: Yes Working smoke detector in home: Yes Fire extinguisher in home: Yes Carbon monox detector in home: Yes Do you feel safe at home: Yes Do you feel safe in your relationship?: Yes Additional Social history: Exposure to- asbestos, chemicals an toxins.
[2024-04-17] MEDS: LORazepam 0.5 MG TAB PO (08:54)
[2024-04-17] MEDS: Docusate Sodium 100 MG CAP PO ×2 (08:54→23:53)
--- NOTE | 2024-04-17 09:20 | NUR.NOTE ---
Nursing Note: this RN in chart D/T [place] transfer center looking for PT in ED
--- NOTE | 2024-04-17 09:21 | PDOC.CMDIS ---
Care Management Discharge SDOH Health Related Social Needs: Health related social needs inadequate housing (Z59.1), transportation insecurity (Z59.82), problems related to housing/economic circumstances (Z59.89), problems with daily activities (Z73.9)
[2024-04-17] MEDS: Triamcinolone 0.1% CR 15 GM TUBE TP ×2 (11:52→20:14)
--- NOTE | 2024-04-17 12:05 | PDOC.CMIN ---
Date of service: 04/17/24 Time of Service: 12:05 Care Management Initial Assmt Initial Assessment Reason for Hospitalization: NSTEMI Influenza and and CHF Functional Status/Living Situation Patient Presentation: Kam was sitting up in bed when CM met with him. He was pleasant and engaged easily with CM but appeared anxious. Kam informed CM that he is hoping to get a bed at [facility] instead of [facility] in [place], [place]. He does not have any relatives locally and would have no way to get back home from [facility]. Kam was admitted with Influenza, CHF and an NSTEMI. he has been accepted in transfer to [facility] however there is no bed available at this time. Clinically, Kam's vital signs are stable and his O2 saturation is in the mid 90s on 2 L/min of nasal oxygen. Kam lives in an apartment in [place]. He has no children and no family in the area. He explained that he moved to [place] 30 years ago to care for his parents. He is originally from [place] and that is where the rest of the family lives. 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 He is independent at baseline and does not receive any services. He shared that he does not qualify. Kam uses a walker on occasion for ambulatory assistance. Town of Residence: [place] Resides with: Alone Significant Other/Family: Out of area (family in [place]) Employment Status: Retired (hydrocrane operator) Instrumental Activities of Daily Living (ADLs): Independent Medications Medication Management: No Issues/Barriers identified Physical Functioning/Mobility Assistive Device: walker Advance Directives Advance Directives: Do you have an Advance Directive: Y 06/29/14 09:47 AD On File at [facility]: Y 05/05/18 10:41 Date Asked 04/16/14 01/13/20 09:52 AD Date Reviewed 04/16/24 04/16/24 16:40 COLST On File at [facility] COLST Date Scanned Code Status Resuscitation Status DNR/DNI Portal Pt does not currently have a portal and education provided: No Insurance Coverage/Financial Issues Insurance: [employer] Medicare Replacement Care Team Visit Care Team Role Provider Type Tien Galicia DO Primary Care Provider OSTEOPATHIC DOCTOR Lili Pitts Other Providers ROBOTICS APPLICATION ENGINEER Jana Paz Other Providers ROBOTICS APPLICATION ENGINEER Eve Alston Other Providers ROBOTICS APPLICATION ENGINEER Tonya Labounty RN Other Providers ROBOTICS APPLICATION ENGINEER Dagmar Lopez MD Emergency Provider [facility] STAFF PHYSICIAN James Ricks Admit Provider NON-ELEUTERIO STAFF PHYSICIAN Attending Provider Discharge Potential Discharge Needs: Other (transfer to tertiary care facility) Anticipated Barriers to Discharge: Bed availability Transportation: EMS Plan: Kam has been accepted in transfer to [facility] in [place], [place] pending bed availability. He will transport via EMS coordinated by the nursing solid waste facility supervisor. CM will follow. Social Determinants of Health Screening Social Determinants of Health last assessed: 04/17/24 Will the Patient Participate in the Screening?: Yes Do you worry about having a steady place to live?: no Problems where you live: lead paints of pipes In the past 12 months, have you had to go without electric, gas, oil or water in your home?: no Have you or anyone in your house had to go without enough food to eat?: no Has lack of transportation kept you from medical appointments or from doing things needed for daily living?: yes Has anyone in your life made you feel unsafe or unsupported?: no How hard is it for you to pay for the very basics like food, housing, medical care, and heating? Would you say it is:: Somewhat hard Do you want help finding or keeping work or a job?: I do not need or want help If for any reason you need help with day-to-day activities such as bathing, preparing meals, shopping, managing finances, etc., do you get the help you need?: I could use a little more help How often do you feel lonely or isolated from those around you?: Never Do you speak a language other than Polish at home?: No Does the patient want assistance with any of the above?: Yes Health Related Social Needs Health related social needs: inadequate housing (Z59.1), transportation insecurity (Z59.82), problems related to housing/economic circumstances (Z59.89) and problems with daily activities (Z73.9) PFSH All Active Problems (Updated 04/17/24 @ 02:43 by James Ricks) RSV (respiratory syncytial virus infection) (Acute) Hypomagnesemia (Acute) Acute hypoxic respiratory failure (Acute) Pulmonary edema (Acute) Acute exacerbation of CHF (congestive heart failure) (Acute) Acute non-ST elevation myocardial infarction (NSTEMI) (Acute) Acute kidney injury (Acute) Cardiomyopathy (Acute) Vitamin B12 deficiency (Acute) Biventricular ICD (implantable cardioverter-defibrillator) in place (Chronic 01/03/18) [employer] CHUCK BONER-D PACEMAKER DEPENDENT - EXQUISITELY SENSITIVE TO TESTING Complete heart block (Chronic) Vitamin D deficiency (Acute) Fatigue (Acute) Other secondary cataract, bilateral (Acute) Constipation due to pain medication (Acute) ASCVD (arteriosclerotic cardiovascular disease) (Acute) Toe deformity (Acute) Neuropathy (Acute) Nail dystrophy (Acute) COPD (chronic obstructive pulmonary disease) (Chronic) Pulmonary nodules (Acute) Obstructive sleep apnea syndrome (Chronic ~2016) Personal history of nicotine dependence (Acute) History of transcatheter aortic valve replacement (TAVR) (Acute) Diabetes mellitus type II, controlled (Chronic) Advance directive on file (Acute) CHF (congestive heart failure) (Chronic) Chest pain (Acute) Sciatica of left side (Acute 03/26/16) Dermatitis (Acute 02/08/11) Chronic kidney disease (CKD) stage G3a/A1, moderately decreased glomerular filtration rate (GFR) between 45-59 mL/min/1.73 square meter and albuminuria creatinine ratio less than 30 mg/g (Acute 05/24/17) Biventricular ICD (implantable cardioverter-defibrillator) in place (Acute) Diverticulosis (Acute) roasterman (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 Left L3 radiculopathy: Pain clinic injec 09/2016. Left lumbar radiculopathy (Chronic 10/26/16) s/p Left L3 steroid inj 09/2016 Dr Olsen Hypertriglyceridemia (Chronic 12/31/14) Distal paresthesia (Chronic 02/16/14) nocturnal warm feelings both feet began about 11/2013, ?early peripheral neuropathy DM neuro manif type II (Chronic) Chronic pain disorder (Chronic 10/26/16) multiple sources; s/p Chronic Pain workshop [facility], s/p PT; s/p [place] workshop Chronic obstructive pulmonary disease (Chronic 01/21/17) Dr Wright 12/201601/02/19 F/U with Dr Ibrahim Lumbar back pain with radiculopathy affecting left lower extremity (Chronic) Neuropathy, lateral femoral cutaneous nerve (Chronic) Diabetes mellitus, type II (Chronic) a. poor control b. recent self hydration with two 2 L bottles of gingerale Hypertension (Chronic) Hyperlipidemia (Chronic) Obesity (Chronic) Peripheral neuropathy (Chronic) Weakness (Chronic 04/16/14) Medical History Cardiac resynchronization therapy defibrillator (CHUCK BONER-D) in place (~01/03/18) Sciatica Eczema History of bacteremia Cardiac murmur (02/08/11) Acute kidney injury superimposed on chronic kidney disease pt. denies this Dyspnea on exertion (09/20/15) h/o ARDS due to Influenza B (03/2014); exacerbations 06/12/15 & 09/03/15; consult [facility], Pulmonary Adjustment disorder, unspecified (09/03/16) Acute gastroenteritis Encounter for physical therapy (04/16/14) s/p mechanical ventilation (04/16/14) s/p respiratory failure (04/16/14) a. secondary to influenza B and ARDS, requiring mechanical ventilation for four days, then extubated, reintubated and required another four days of mechanical ventilation, now on room air Influenza with respiratory manifestations (04/16/14) a. TYPE B INFLUENZA Surgical History History of cataract surgery Nuclear sclerotic cataract of left eye (~12/04/19) Cortical cataract of right eye (11/20/19) S/P TAVR (transcatheter aortic valve replacement) (~09/2017) Central line for TPN (03/31/14) with pneumonia Biopsy Skin of left buddhist (12/10/14) Dr. Kermit Edwards Final pathologic diagnosis-Sebottheic keratosis Family History Mother Stroke Father , CHF at age 88. CHF (congestive heart failure) Fluid overload Hypertension Social History Smoking/Tobacco Use Status: Current-Occasional Tobacco Type: cigarettes and cigars Tobacco: How many years used: 60 Quit status: considering quitting Counseling given: counseling >3 minutes Smoking risk assessment performed?: Yes Alcohol Intake: former Drug use: Never Substance use type: does not use Caregiver/Support person: No Household members: none Housing: apartment Number of Children: 0 Communication Needs: Corrective Lenses Education Level: high school Do you need help understanding health information?: Rarely Pets and animals: Yes Pets and animals: cat(s) Current gender identity: male What is your relationship status?: refused to answer How often do you talk on the phone with friends or family?: twice per week How often do you get together with friends or relatives?: once per week How often do you attend yarsanism or tenriism services?: decline to answer Do you belong to any clubs or organized social groups?: no Panel score (0-1 are the most socially isolated patients): 1 What type of physical activity do you participate in: bicycling and other Details: stationary bike Duration: 15-30 minutes/day Frequency: 3-4 times per week Rama/Anabaptist: Rastafarian Special rama needs: No Agree to transfusion: Yes Seatbelt use: always Helmet use: No Drive intox or ride w/intox armor reconnaissance vehicle driver: No Water heater temp set <120 deg: Yes Working smoke detector in home: Yes Fire extinguisher in home: Yes Carbon monox detector in home: Yes Do you feel safe at home: Yes Do you feel safe in your relationship?: Yes Additional Social history: Exposure to- asbestos, chemicals an toxins.
[2024-04-17] MEDS: Heparin in 0.45% NaCl 25,000 UNIT/250 ML BAG 11.5 UNIT IVINF (12:48)
[2024-04-17] MEDS: nitroGLYcerin in D5W 50 MG/250 ML BTL 15 MG IV (12:53)
[2024-04-17 15:55] LABS: PTT Activated 57.8 sec (20.6-30.2)
--- NOTE | 2024-04-17 16:39 | W.PM.PROGNOT ---
Date of Service Date of service: 04/17/24 Time of Service: 16:39 Assessment and Plan Assessment and plan (1) Acute non-ST elevation myocardial infarction (NSTEMI): Start date: 04/16/24 Status: Acute Assessment and plan: - CP has a musculoskeletal quality to it but the patient has significant history and risk factors as well as persistently elevated troponins - currently on a heparin gtt, will continue - continue carvedilol - continue ASA/Plavix - Multiple facilities including [facility] (where patient has had previous contact) were not accepting transfers at this time. However, I did d/w Dr. Rodriguez (hospitalist) and Dr. Rodríguez (cards) at [facility] in [place], [place] and they are willing to take the patient in transfer. Bed likely won't be available today. Patient is agreeable to this transfer. (2) Acute exacerbation of CHF (congestive heart failure): Start date: 04/16/24 Status: Acute Assessment and plan: - patient does not appear very fluid overloaded at time of my eval and Cr did jump from 1.1 to 1.9. will hold further lasix for now and monitor (3) Acute hypoxic respiratory failure: Start date: 04/16/24 Status: Acute Assessment and plan: - continue O2 as needed - CPAP qhs for ANNABELLE (4) RSV (respiratory syncytial virus infection): Start date: 04/16/24 Status: Acute Assessment and plan: - continue supportive care, including O2 supplementation (5) COPD (chronic obstructive pulmonary disease): Status: Chronic Assessment and plan: - does not appear to be in acute exacerbation and was not wheezing on my exam - received single dose IV solumedrol in ER, will hold (6) Obstructive sleep apnea syndrome: Status: Chronic Assessment and plan: If patient is on CPAP or BiPAP at night, continue while hospitalized. He is at least on nighttime oxygen supplementation. (7) DM neuro manif type II: Status: Chronic Assessment and plan: - SSI as ordered - off PO regimen while admitted Subjective Subjective Interval history since last seen: Seen and examined this AM. Patient told me he was feeling better from a respiratory standpoint. Was still experiencing CP, midsternal without rads. Some pleuritic and positional quality to it. 2L NC with good sats, remains afebrile. Exam Const General: cooperative, comfortable, no acute distress and ill appearing Orientation: alert, awake and oriented x3 Chest Chest: normal inspection of the chest Resp Effort & Inspection: normal respiratory effort Auscultation: clear to auscultation bilaterally, no rales, no rhonchi and no wheezes Cardio Rate: regular rate Rhythm: regular rhythm Heart Sounds: S1 normal and S2 normal GI Inspection: normal to inspection Palpation: soft Auscultation: normal bowel sounds Neuro Cranial Nerves: CN's II-XI intact bilaterally Objective Last Vital Signs Temp 36.8 C 04/17/24 09:01 Pulse 84 04/17/24 10:00 Resp 21 04/17/24 10:00 BP 122/77 04/17/24 09:01 Pulse Ox 95 04/17/24 10:00 Laboratory Results - last 24 hr 04/16/24 04/16/24 04/16/24 17:04 18:01 19:18 WBC 7.25 RBC 4.92 Hgb 14.8 Hct 45.1 MCV 92 MCH 30.1 MCHC 32.8 RDW 14.6 H Plt Count 199 MPV 8.8 Immature Gran % 0.3 Neutrophils % 78.5 Lymphocytes % 13.1 Monocytes % 6.6 Eosinophils % 1.1 Basophils % 0.4 Nucleated RBC % 0.0 Absolute Neutrophils 5.69 Absolute Lymphocytes 0.95 L Absolute Monocytes 0.48 Absolute Eosinophils 0.08 Absolute Basophils 0.03 PT 11.0 INR 1.1 APTT 27.0 VBG pH 7.35 VBG pCO2 41 VBG pO2 75 VBG HCO3 23 VBG Total CO2 20 L VBG O2 Saturation 95 VBG Base Excess -3 L Sodium 143 Potassium 3.9 Chloride 105 Carbon Dioxide 23.6 Anion Gap 14.4 H BUN 18 Creatinine 1.1 Est GFR (CKD-EPI 2020) 68.29 Glucose 157 H Calcium 9.6 Magnesium 1.6 L Total Bilirubin 0.51 AST 26 ALT 25 Alkaline Phosphatase 38 L Troponin I 65 104 H* NT-Pro-B Natriuret Pep 2426 H Total Protein 7.6 Albumin 3.8 TSH COVID-19 Source SARS-CoV-2 (PCR) Influenza Type A (PCR) Influenza Type B (PCR) RSV (PCR) 04/16/24 04/16/24 04/17/24 19:58 23:10 01:00 WBC RBC Hgb Hct MCV MCH MCHC RDW Plt Count MPV Immature Gran % Neutrophils % Lymphocytes % Monocytes % Eosinophils % Basophils % Nucleated RBC % Absolute Neutrophils Absolute Lymphocytes Absolute Monocytes Absolute Eosinophils Absolute Basophils PT INR APTT 62.4 H VBG pH VBG pCO2 VBG pO2 VBG HCO3 VBG Total CO2 VBG O2 Saturation VBG Base Excess Sodium Potassium Chloride Carbon Dioxide Anion Gap BUN Creatinine Est GFR (CKD-EPI 2020) Glucose Calcium Magnesium Total Bilirubin AST ALT Alkaline Phosphatase Troponin I 136 H* NT-Pro-B Natriuret Pep Total Protein Albumin TSH COVID-19 Source Nasopharynx SARS-CoV-2 (PCR) Negative Influenza Type A (PCR) Negative Influenza Type B (PCR) Negative RSV (PCR) Positive A* 04/17/24 04/17/24 04/17/24 04:38 07:47 15:34 WBC 6.14 RBC 4.26 L Hgb 12.8 L D Hct 39.1 L MCV 92 MCH 30.0 MCHC 32.7 RDW 14.6 H Plt Count 195 MPV 9.2 Immature Gran % Neutrophils % Lymphocytes % Monocytes % Eosinophils % Basophils % Nucleated RBC % Absolute Neutrophils Absolute Lymphocytes Absolute Monocytes Absolute Eosinophils Absolute Basophils PT INR APTT 50.3 H 57.8 H VBG pH VBG pCO2 VBG pO2 VBG HCO3 VBG Total CO2 VBG O2 Saturation VBG Base Excess Sodium 138 Potassium 3.9 Chloride 106 Carbon Dioxide 25.3 Anion Gap 6.7 BUN 33 H Creatinine 1.9 H Est GFR (CKD-EPI 2020) 35.44 Glucose 253 H Calcium 9.1 Magnesium 2.3 Total Bilirubin 0.34 AST 22 ALT 18 Alkaline Phosphatase 32 L Troponin I 125 H* 126 H* NT-Pro-B Natriuret Pep Total Protein 6.8 Albumin 3.4 TSH 0.53 COVID-19 Source SARS-CoV-2 (PCR) Influenza Type A (PCR) Influenza Type B (PCR) RSV (PCR) Time Spent with Patient Time Spent with Patient: 25-34 minutes Time was spent: preparing to see the patient(eg.review tests), obtaining and/or reviewing separately otained hiistory, ordering medications,tests, procedures, referring, communicating with other health clinical care coordinator, indepentently interpreting results, counseling the patient and care coordination
[2024-04-17] MEDS: Budesonide/Formoterol 80/4.5 10.2 GM 120 PUFF INH IH (20:00)
[2024-04-17] MEDS: Atorvastatin 40 MG TAB 80 MG PO (20:04)
[2024-04-17] MEDS: Mirtazapine 15 MG TAB PO (20:04)
[2024-04-17] MEDS: HYDROmorphone 2 MG/ML SYR 0.5 MG IVP (20:13)
[2024-04-17] MEDS: Cyclobenzaprine 10 MG TAB PO (23:53)
[2024-04-18] VITALS (47 sets, daily range): BP systolic 105–152; BP diastolic 50–88; PULSE 76–103; RESP 14–25; TEMP 36.7–37; O2SAT 90–99
[2024-04-18] MEDS: HYDROmorphone 2 MG/ML SYR 0.5 MG IVP ×6 (00:01→22:16)
[2024-04-18] MEDS: nitroGLYcerin in D5W 50 MG/250 ML BTL 9 MG IV (05:31)
[2024-04-18 06:11] LABS: Abs Immature Grans 0.02 10^3/uL (0.0-0.06); Absolute Basophil Count 0.02 10^3/uL (0.0-0.2); Absolute Eosinophil Count 0.04 10^3/uL (0.0-0.7); Absolute Monocyte Count 0.67 10^3/uL (0.1-0.8); Absolute Neutrophil Count 4.64 10^3/uL (1.2-6.7); Basophils % 0.3 %; Eosinophils % 0.6 %; HCT 37.8 % (40.0-50.0); HGB 12.5 g/dL (13.5-17.5); Immature Grans % 0.3 %; MCHC 33.1 % (32.0-36.0); MCV 91 fL (80-95); MPV 9.3 fL (8.0-11.0); Monocytes % 9.3 %; Neutrophils % 64.5 %; Platelet Count 187 10^3/uL (130-400); RBC 4.17 10^6/uL (4.36-5.78); RDW 14.4 % (11.8-14.1); RDW-SD 48.6 fL; WBC 7.19 10^3/uL (4.4-10.8)
[2024-04-18 06:27] LABS: PTT Activated 46.6 sec (20.6-30.2)
[2024-04-18 06:33] LABS: ALT 22 U/L (16-63); AST 24 U/L (15-37); Albumin 3.5 g/dL (3.4-5.0); Alkaline Phosphatase 33 U/L (46-116); Anion Gap 9.4 mmol/L (3-11); BUN 38 mg/dL (7-18); Bilirubin, Total 0.49 mg/dL (0.2-1.0); CO2 27.6 mmol/L (21.0-32.0); CREATININE 1.5 mg/dL (0.70-1.30); Calcium 9.1 mg/dL (8.5-10.1); Chloride 102 mmol/L (98-107); Estimated GFR 47.06 (mL/min/1.73m2); Glucose 137 mg/dL (74-106); Magnesium 2.1 mg/dL (1.8-2.4); Potassium 3.7 mmol/L (3.5-5.1); Sodium 139 mmol/L (136-145); Total Protein 6.9 g/dL (6.4-8.2)
[2024-04-18] MEDS: Heparin in 0.45% NaCl 25,000 UNIT/250 ML BAG 13 UNIT IVINF (07:40)
[2024-04-18] MEDS: Tiotropium Bromide-Respimat 10 PUFF INH 2 PUFF IH (08:12)
[2024-04-18] MEDS: Budesonide/Formoterol 80/4.5 10.2 GM 120 PUFF INH IH ×2 (08:13→19:46)
[2024-04-18] MEDS: Furosemide 40 MG/4 ML VIAL IV (08:21)
[2024-04-18] MEDS: Lisinopril 20 MG TAB 80 MG PO (08:23)
[2024-04-18] MEDS: Fenofibrate, Micronized 145 MG TAB PO (08:23)
[2024-04-18] MEDS: amLODIPine 10 MG TAB PO (08:24)
[2024-04-18] MEDS: Clopidogrel 75 MG TAB PO (08:24)
[2024-04-18] MEDS: Cephalexin 500 MG CAP PO ×2 (08:24→19:56)
[2024-04-18] MEDS: Aspirin E.C. 81 MG TABEC PO (08:24)
[2024-04-18] MEDS: Carvedilol 12.5 MG TAB PO (08:24)
[2024-04-18] MEDS: Normal Saline Flush 10 ML SYR IVP ×5 (08:25→22:16)
[2024-04-18] MEDS: Insulin Aspart 300 UNITS/3 ML PEN SC (12:31)
[2024-04-18] MEDS: Polyethylene Glycol 3350 17 GM PACKET PO (12:32)
[2024-04-18] MEDS: Fluticasone NASAL SPRAY 16 GM BTL NS (12:33)
[2024-04-18] MEDS: Docusate Sodium 100 MG CAP PO (12:33)
--- NOTE | 2024-04-18 13:12 | PGE_ITS ---
Date of Service Date of service: 04/18/24 Time of Service: 13:23 Assessment and Plan Assessment and plan (1) Acute non-ST elevation myocardial infarction (NSTEMI): Start date: 04/16/24 Status: Acute Assessment and plan: - CP has a musculoskeletal quality to it but the patient has significant history and risk factors as well as persistently elevated troponins - I d/w patient. He was indicating to me that he would consider [facility] as it was closer than [facility] in [place], [place]. I called over and spoke to Dr. Peña who is cardiology there. After discussion, he felt patient did not need transfer, would consider working on getting patient off nitro, possibly increasing Coreg and adding oral nitro in attempt to control possible angina. Also recommended stress testing if possible. - i did discuss this with patient. he is willing to undergo these medical changes but would like to continue to pursue transfer to [facility] at this time and this was not canceled. - will continue other meds as ordered ---> amlopidine, ASA/Plavix (2) Acute exacerbation of CHF (congestive heart failure): Start date: 04/16/24 Status: Acute Assessment and plan: - patient still appears euvolemic, will continue to hold diuresis - Cr improved to 1.5 (3) Acute hypoxic respiratory failure: Start date: 04/16/24 Status: Acute Assessment and plan: - continue O2 as needed, currently on RA - CPAP qhs for ANNABELLE (4) RSV (respiratory syncytial virus infection): Start date: 04/16/24 Status: Acute Assessment and plan: - continue supportive care, including O2 supplementation (5) COPD (chronic obstructive pulmonary disease): Status: Chronic Assessment and plan: - does not appear to be in acute exacerbation and was not wheezing on my exam - received single dose IV solumedrol in ER, will hold (6) Obstructive sleep apnea syndrome: Status: Chronic Assessment and plan: If patient is on CPAP or BiPAP at night, continue while hospitalized. He is at least on nighttime oxygen supplementation. (7) DM neuro manif type II: Status: Chronic Assessment and plan: - SSI as ordered - off PO regimen while admitted Subjective Subjective Interval history since last seen: Seen and examined. Sitting on side of bed, eating lunch. Per signout, patient had some chest pain, again radiating to L arm. Relief with IV dilaudid. Was also started on nitro gtt for potential angina. At this time, tells me the pain is still present but is identifying it more as his radiculopathy for which he is on chronic oxycodone rather than something that he felt was cardiac in nature. Otherwise comfortable, vitals stable. Exam Const General: cooperative, comfortable, no acute distress and ill appearing Orientation: alert, awake and oriented x3 Chest Chest: normal inspection of the chest Resp Effort & Inspection: normal respiratory effort Auscultation: clear to auscultation bilaterally, no rales, no rhonchi and no wheezes Cardio Rate: regular rate Rhythm: regular rhythm Heart Sounds: S1 normal and S2 normal GI Inspection: normal to inspection Palpation: soft Auscultation: normal bowel sounds Neuro Cranial Nerves: CN's II-XI intact bilaterally Objective Last Vital Signs Temp 37 C 04/18/24 09:57 Pulse 82 04/18/24 06:01 Resp 23 04/18/24 06:01 BP 132/67 04/18/24 06:00 Pulse Ox 95 04/18/24 08:17 Laboratory Results - last 24 hr 04/17/24 04/18/24 15:34 05:39 WBC 7.19 RBC 4.17 L Hgb 12.5 L Hct 37.8 L MCV 91 MCH 30.0 MCHC 33.1 RDW 14.4 H Plt Count 187 MPV 9.3 Immature Gran % 0.3 Neutrophils % 64.5 Lymphocytes % 25.0 Monocytes % 9.3 Eosinophils % 0.6 Basophils % 0.3 Nucleated RBC % 0.0 Absolute Neutrophils 4.64 Absolute Lymphocytes 1.80 Absolute Monocytes 0.67 Absolute Eosinophils 0.04 Absolute Basophils 0.02 APTT 57.8 H 46.6 H Sodium 139 Potassium 3.7 Chloride 102 Carbon Dioxide 27.6 Anion Gap 9.4 BUN 38 H Creatinine 1.5 H Est GFR (CKD-EPI 2020) 47.06 Glucose 137 H Calcium 9.1 Magnesium 2.1 Total Bilirubin 0.49 AST 24 ALT 22 Alkaline Phosphatase 33 L Total Protein 6.9 Albumin 3.5 Time Spent with Patient Time Spent with Patient: 25-34 minutes Time was spent: preparing to see the patient(eg.review tests), indepentently interpreting results, counseling the patient and care coordination
[2024-04-18 13:16] LABS: PTT Activated 56.8 sec (20.6-30.2)
[2024-04-18] MEDS: Milk of Magnesia 30 ML CUP PO (15:54)
[2024-04-18] MEDS: Atorvastatin 40 MG TAB 80 MG PO (19:56)
[2024-04-18] MEDS: Carvedilol 25 MG TAB PO (19:56)
[2024-04-18] MEDS: Mirtazapine 15 MG TAB PO (19:56)
[2024-04-18] MEDS: Cyclobenzaprine 10 MG TAB PO (22:17)
[2024-04-19] VITALS (17 sets, daily range): BP systolic 144–156; BP diastolic 67–109; PULSE 59–108; RESP 13–28; TEMP 36.8–37.1; O2SAT 90–94
[2024-04-19] MEDS: Polyethylene Glycol 3350 17 GM PACKET PO (05:34)
[2024-04-19] MEDS: Docusate Sodium 100 MG CAP PO ×2 (05:34→08:35)
--- NOTE | 2024-04-19 06:30 | W.NUTRFU ---
Date of service: 04/19/24 Time of Service: 06:30 Nutrition Note NOTE: Pt is 79yo male admitted for ecxac of COPD, RSV, NSTEMI, DONTAE with hx of DMII, cardiomyopathy, B12 and D deficiency, CHF, CKD. Last A1c waas 5.9% 04/10/24. GFR yesterday at 47. Lytes wnl, 04/18/24 albumin and total protein labs wnl. PO intake fair to good per nursing and % meal consumed documentation. At home takes insulin glargine 19u in AM and 24-30u HS, weekly semaglutide, glipizide, Metformin. also furosemide and statin. Home DM meds on hold - moderate sliding scale novolog TID ordered for corrections. fasting glucose pending today - was 137 yesterday and mostly <200 this admission. fingersticks also <200 for the most part with no recorded/reported lows. Weight loss noted of ~5kg from 04/10/24-present. - diuretic responsible for a portion of this. - less concerning due to normal albumin/total protein labs and level of po intake. Removed heart healthy diet order and remains consistent carb diet this admission to help liberalize diet to support intake. Nutrition dx: hx of vitamin deficiency (B12 and D). Intervention: Will continue to get patients preferred menu orders. Recommend vitamin and B12 labs d/t hx of deficiency with last repeat labs ~1 year ago and no vitamin supplement appearing on home med list or currently ordered. will continue to monitor glucose trends, po intake, nutrition-related labs Time Spent in Nutritional Counseling and Treatment: 0
[2024-04-19 06:48] LABS: Abs Immature Grans 0.02 10^3/uL (0.0-0.06); Absolute Basophil Count 0.02 10^3/uL (0.0-0.2); Absolute Eosinophil Count 0.07 10^3/uL (0.0-0.7); Absolute Lymphocyte Count 1.61 10^3/uL (1.2-3.4); Absolute Monocyte Count 0.59 10^3/uL (0.1-0.8); Absolute Neutrophil Count 4.04 10^3/uL (1.2-6.7); Basophils % 0.3 %; Eosinophils % 1.1 %; HCT 39.2 % (40.0-50.0); HGB 12.8 g/dL (13.5-17.5); Immature Grans % 0.3 %; Lymphocytes % 25.4 %; MCH 29.6 pg (27.0-33.0); MCHC 32.7 % (32.0-36.0); MCV 91 fL (80-95); MPV 9.2 fL (8.0-11.0); Monocytes % 9.3 %; Neutrophils % 63.6 %; Platelet Count 206 10^3/uL (130-400); RBC 4.32 10^6/uL (4.36-5.78); RDW 14.1 % (11.8-14.1); RDW-SD 47.8 fL; WBC 6.35 10^3/uL (4.4-10.8)
[2024-04-19 07:05] LABS: Anion Gap 8.9 mmol/L (3-11); BUN 30 mg/dL (7-18); CO2 28.1 mmol/L (21.0-32.0); CREATININE 1.2 mg/dL (0.70-1.30); Calcium 9.6 mg/dL (8.5-10.1); Chloride 104 mmol/L (98-107); Estimated GFR 61.52 (mL/min/1.73m2); Glucose 150 mg/dL (74-106); Magnesium 2.3 mg/dL (1.8-2.4); Sodium 141 mmol/L (136-145); Troponin I 68 ng/L (<or=76)
[2024-04-19] MEDS: Fluticasone NASAL SPRAY 16 GM BTL NS (07:58)
[2024-04-19] MEDS: Insulin Aspart 300 UNITS/3 ML PEN SC ×3 (07:58→16:57)
[2024-04-19] MEDS: Clopidogrel 75 MG TAB PO (07:59)
[2024-04-19] MEDS: Aspirin E.C. 81 MG TABEC PO (07:59)
[2024-04-19] MEDS: Carvedilol 25 MG TAB PO ×2 (07:59→19:20)
[2024-04-19] MEDS: amLODIPine 10 MG TAB PO (07:59)
[2024-04-19] MEDS: Fenofibrate, Micronized 145 MG TAB PO (07:59)
[2024-04-19] MEDS: Cephalexin 500 MG CAP PO ×2 (07:59→21:49)
[2024-04-19] MEDS: Lisinopril 20 MG TAB 80 MG PO (08:00)
[2024-04-19] MEDS: Normal Saline Flush 10 ML SYR IVP ×3 (08:00→23:54)
[2024-04-19] MEDS: Tiotropium Bromide-Respimat 10 PUFF INH 2 PUFF IH (08:17)
[2024-04-19] MEDS: Budesonide/Formoterol 80/4.5 10.2 GM 120 PUFF INH IH ×2 (08:17→19:48)
[2024-04-19] MEDS: Milk of Magnesia 30 ML CUP PO (08:35)
[2024-04-19] MEDS: Acetaminophen 325 MG TAB PO ×3 (08:35→23:53)
--- NOTE | 2024-04-19 12:15 | RT.EKG_ITS ---
APPROVED REPORT Exam: Resting ECG Reason for Exam: ongoing chest pain Patient Location: I HR:88 bpm ECG Measurements Heart Rate 88 AXIS AR 193 P 39 QRSd 185 QRS 252 QT 449 T 76 QTc 544 Conclusion Atrial-sensed ventricular-paced rhythm...ventricular pacing tracks p-waves No further analysis attempted due to paced rhythm Baseline wander in lead(s) II,aVR,V1,V2,V3,V4
[2024-04-19] MEDS: Benzonatate 200 MG CAP PO ×2 (14:03→19:20)
--- NOTE | 2024-04-19 15:19 | W.PM.PROGNOT ---
Date of Service Date of service: 04/19/24 Time of Service: 07:25 Assessment and Plan Assessment and plan (1) Acute non-ST elevation myocardial infarction (NSTEMI): Start date: 04/16/24 Status: Acute Assessment and plan: - After reviewing this case, I think this is type 2 ACS rather than a a primarily cardiac acute event. Trigger was RSV. - Chest pain c/w musculoskeletal, having some ongoing pain with cough but troponins normalized this morning. No change on repeat EKG. - Case reviewed with Dr. Peña cardiology at [facility] 04/18 who felt patient did not need transfer. Recommended getting patient off nitro, possibly increasing Coreg and adding oral nitro in attempt to control possible angina. Also recommended stress testing. I don't think this is anginal pain so will not futher adjust meds, but will get stress test, MPI as baseline EKG if possible. - Again discussed this with patient. Cancelled transfer to [facility] [place]. - will continue other meds including atorvastatin 80mg, amlopidine, ASA/Plavix (2) Acute exacerbation of CHF (congestive heart failure): Start date: 04/16/24 Status: Acute Assessment and plan: - h/o non-ischemic cardiomyopathy with LVEF 40% on last echo in 2022 - patient still appears euvolemic, will continue to hold diuresis - Cr improved to 1.2 (3) Acute hypoxic respiratory failure: Start date: 04/16/24 Status: Acute Assessment and plan: - Improved, currently on RA - CPAP qhs for ANNABELLE (4) RSV (respiratory syncytial virus infection): Start date: 04/16/24 Status: Acute Assessment and plan: - continue supportive care, improved as above. - Treat symptoms with benzonatate and nasal ipratropium, avoid stimulants. (5) COPD (chronic obstructive pulmonary disease): Status: Chronic Assessment and plan: - does not appear to be in acute exacerbation, solumedrol not continued after admission. Countinue inhalers. (6) Obstructive sleep apnea syndrome: Status: Chronic Assessment and plan: If patient is on CPAP or BiPAP at night, continue while hospitalized. He is at least on nighttime oxygen supplementation. 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 SLGT2i also indicated if he can afford it. (8) DVT prophylaxis: Status: Acute Assessment and plan: I think he is high enough risk he should be on enoxaparin Subjective Subjective Patient reports: no new complaints, tolerating a regular diet and voiding w/o difficulty; denies nausea, vomiting or fever Interval history since last seen: 24 hr events: none He is still getting pain across his mid chest with coughing, not otherwise. He has a lot of nasal drip and wants to try decongestant spray that has worked in past. Bringing up sputum with cough and mucous in nose. Not as short of breath any more. Exam Narrative Exam Narrative: General: alert and oriented x 3, NAD Lungs: CTAB, normal effort, slight end expiratory wheeze. Fair aeration. Chest: Palpable subcutaneous pacemaker left upper chest. Anterior chest wall is tender with palpation. Heart: RRR, 1/6 systolic murmur sternal border. Abdomen: Normal contour, soft nontender/ND Extremities: Without clubbing, cyanosis or pitting edema. Good capillary refill. Objective Last Vital Signs Temp 37.1 C 04/19/24 09:30 Pulse 63 04/19/24 12:09 Resp 13 04/19/24 12:09 BP 156/69 H 04/19/24 12:09 Pulse Ox 90 L 04/19/24 10:01 Laboratory Results - last 24 hr 04/19/24 05:32 WBC 6.35 RBC 4.32 L Hgb 12.8 L Hct 39.2 L MCV 91 MCH 29.6 MCHC 32.7 RDW 14.1 Plt Count 206 MPV 9.2 Immature Gran % 0.3 Neutrophils % 63.6 Lymphocytes % 25.4 Monocytes % 9.3 Eosinophils % 1.1 Basophils % 0.3 Nucleated RBC % 0.0 Absolute Neutrophils 4.04 Absolute Lymphocytes 1.61 Absolute Monocytes 0.59 Absolute Eosinophils 0.07 Absolute Basophils 0.02 Sodium 141 Potassium 4.0 Chloride 104 Carbon Dioxide 28.1 Anion Gap 8.9 BUN 30 H Creatinine 1.2 Est GFR (CKD-EPI 2020) 61.52 Glucose 150 H Calcium 9.6 Magnesium 2.3 Troponin I 68 Time Spent with Patient Time Spent with Patient: >50 minutes Time was spent: preparing to see the patient(eg.review tests), obtaining and/or reviewing separately otained hiistory, ordering medications,tests, procedures, referring, communicating with other health transitional care manager, indepentently interpreting results, counseling the patient and care coordination
[2024-04-19] MEDS: Enoxaparin 40 MG/0.4 ML SYR SC (19:20)
[2024-04-19] MEDS: Atorvastatin 40 MG TAB 80 MG PO (19:20)
[2024-04-19] MEDS: Mirtazapine 15 MG TAB PO (19:21)
[2024-04-19] MEDS: Cyclobenzaprine 10 MG TAB PO (23:53)
[2024-04-19] MEDS: HYDROmorphone 2 MG/ML SYR 0.5 MG IVP (23:54)
[2024-04-20] VITALS (14 sets, daily range): BP systolic 150–174; BP diastolic 68–81; PULSE 70–96; RESP 14–29; TEMP 37–37.4; O2SAT 91–93
[2024-04-20] MEDS: LORazepam 0.5 MG TAB PO (02:53)
[2024-04-20] MEDS: HYDROmorphone 2 MG/ML SYR 0.5 MG IVP (05:09)
[2024-04-20] MEDS: Normal Saline Flush 10 ML SYR IVP ×2 (05:10→08:06)
[2024-04-20] MEDS: guaiFENesin/D-METHORPHAN HB 5 ML CUP PO ×2 (05:59→13:14)
--- NOTE | 2024-04-20 06:00 | DI.NM_ITS ---
APPROVED REPORT Conclusion Resting myocardial perfusion images show apical thinning
[2024-04-20 06:55] LABS: Anion Gap 7.9 mmol/L (3-11); BUN 26 mg/dL (7-18); CO2 29.1 mmol/L (21.0-32.0); CREATININE 1.4 mg/dL (0.70-1.30); Calcium 10.1 mg/dL (8.5-10.1); Calculated LDL 56 mg/dL (<100); Chloride 106 mmol/L (98-107); Cholesterol 121 mg/dL (<200); Estimated GFR 51.13 (mL/min/1.73m2); Glucose 147 mg/dL (74-106); HDL Cholesterol 26 mg/dL (>or=40); Potassium 4.2 mmol/L (3.5-5.1); Sodium 143 mmol/L (136-145); Triglyceride 198 mg/dL (<150)
[2024-04-20 07:16] LABS: Vitamin B12 465 pg/mL (193-986)
[2024-04-20] MEDS: Benzonatate 200 MG CAP PO ×2 (08:04→13:14)
[2024-04-20] MEDS: Insulin Aspart 300 UNITS/3 ML PEN SC ×2 (08:04→13:15)
[2024-04-20] MEDS: Aspirin E.C. 81 MG TABEC PO (08:05)
[2024-04-20] MEDS: Fenofibrate, Micronized 145 MG TAB PO (08:05)
[2024-04-20] MEDS: amLODIPine 10 MG TAB PO (08:05)
[2024-04-20] MEDS: Clopidogrel 75 MG TAB PO (08:06)
[2024-04-20] MEDS: Lisinopril 20 MG TAB 80 MG PO (08:06)
[2024-04-20] MEDS: Tiotropium Bromide-Respimat 10 PUFF INH 2 PUFF IH (08:08)
[2024-04-20] MEDS: Fluticasone NASAL SPRAY 16 GM BTL NS (08:08)
[2024-04-20] MEDS: Budesonide/Formoterol 80/4.5 10.2 GM 120 PUFF INH IH (08:08)
--- NOTE | 2024-04-20 08:57 | RESPIRATORY ---
04/20/2024 Pt states that he no longer has a home CPAP/BIPAP machine; he states he was placed on home O2 at night instead; pt states he currently wears 3L at night from [facility] [place] but he believes that may need to be titrated down.
--- NOTE | 2024-04-20 09:15 | PDOC.CMPRO ---
Date of service: 04/20/24 Time of Service: 09:15 Care Management Progress Note Discharge Potential Discharge Needs: PT Evaluation and PCP F/U Appt Anticipated Barriers to Discharge: None Identified Patient/Family Education Needs: Review discharge instructions, discuss Ask Me Three Plan: Anticipate that Kam will be discharged home with no new services. He will f/u with the referrals sent to [facility]. Kam will f/u with his PCP and continue per his plan of care. CM will continue to follow and update the plan as needed. Social Determinants of Health Screening Social Determinants of Health last assessed: 04/20/24 Will the Patient Participate in the Screening?: Yes Do you worry about having a steady place to live?: no Problems where you live: lead paints of pipes In the past 12 months, have you had to go without electric, gas, oil or water in your home?: no Have you or anyone in your house had to go without enough food to eat?: no Has lack of transportation kept you from medical appointments or from doing things needed for daily living?: yes Has anyone in your life made you feel unsafe or unsupported?: no How hard is it for you to pay for the very basics like food, housing, medical care, and heating? Would you say it is:: Somewhat hard Do you want help finding or keeping work or a job?: I do not need or want help If for any reason you need help with day-to-day activities such as bathing, preparing meals, shopping, managing finances, etc., do you get the help you need?: I could use a little more help How often do you feel lonely or isolated from those around you?: Never Do you speak a language other than [place] at home?: No Does the patient want assistance with any of the above?: Yes Health Related Social Needs Health related social needs: inadequate housing (Z59.1), transportation insecurity (Z59.82), problems related to housing/economic circumstances (Z59.89) and problems with daily activities (Z73.9)
--- NOTE | 2024-04-20 14:54 | W.PM.DS.N ---
Date of service: 04/20/24 Time of Service: 14:54 DS: Diagnosis Discharge Diagnosis (1) Acute non-ST elevation myocardial infarction (NSTEMI): Status: Acute Asessment and Plan: type 2 ACS (2) Acute exacerbation of CHF (congestive heart failure): Status: Acute (3) Acute hypoxic respiratory failure: Status: Acute (4) RSV (respiratory syncytial virus infection): Status: Acute (5) COPD (chronic obstructive pulmonary disease): Status: Chronic (6) Obstructive sleep apnea syndrome: Status: Chronic (7) DM neuro manif type II: Status: Chronic (8) DVT prophylaxis: Status: Acute Discharge Plan Disposition Patient Disposition: Home Condition: Improving Discharge Details Reason For Visit: CHF exacerbation, Non-STEMI, Acute hypoxic respira Admit Date/Time: 04/16/24 23:27 Admit Provider: James Ricks Attending Provider: James Ricks [facility] Hospital Course: 79 yo M with history of non-ischemic cardiomyopathy, s/p AVR and AICD presented with cough and shortness of breath and chest pain. He was initially hypoxic, CXR suggested CHF. He was started on IV furosemide, nitroglycerin drip, and supportive care in the ICU. Troponins increased from 65 to a maximum of 136. EKG was ventricular paced and not c/w STEMI. He had ongoing chest pain, and while the pain was most consistent with musculoskeletal pain, given the overall picture he was given a diagnosis of NSTEMI. He was treated with a heparin drip for 48 hours, aspirin, and clopidogrel. He is followed by [facility], who was at capacity, but he was accepted for transfer for catheterization at [facility] in [place], [place], penidng a bed. [facility] was also contacted, and cardiology there suggested he did not need a catheterization. By 04/19 his troponins were back in the normal range and his only chest pain was with coughing and reproducable with palpation. Repeat EKG did not show changes. It was decided to cancel the transfer. MPI stress testing was ordered, but before the testing 04/20 the patient was reminded that he arrested during a previous stress test. At that point given the normalized troponin it was felt the risk of the stress was greater than the benefit. Dr. Gasca was out and the case was reviewed with Toyin Mazariegos from cardiology. He was discharged home with plan to follow up with Dr. Gasca with echocardiogram and consideration for ischemia work up as an outpatient. He was initially diuresed, but his creatinine increased and his diuretics were held. Creatinine improved. Oral home medications including furosemide were resumed at discharge. His oral diabetic medications were held and his sugars were not high. Given his last A1c was 5.9%, consideration should be given to stopping or cutting back glipizide and insulin to avoid hypoglycemia. He was given cough suppressant for his RSV symptoms along with nasal steroid and ipratropium. On the day of discharge he was having increased sinus pain. He is on chornic cephalosporin therapy for history of MSSA, so he was given a week of doxycycline for bacterial sinusitis compliting RSV. He should see his PCP within 1-2 weeks and cardiology after the echocardiogram is done, ideally within 2 weeks. Home Meds and New Rx's Prescriptions: New benzonatate 200 mg Capsule 200 mg PO TID Qty: 20 0RF carvedilol 25 mg Tablet 25 mg PO BID Qty: 60 0RF polyethylene glycol 3350 17 gram Powder In Packet 17 g PO DAILY PRN PRN (Reason: Constipation) Qty: 0 0RF clopidogrel 75 mg Tablet 75 mg PO DAILY Qty: 30 0RF dextromethorphan-guaifenesin 10-100 mg/5 mL Syrup 5 ml PO Q6H PRN PRNQty: 100 0RF doxycycline hyclate 100 mg tablet 100 mg PO BID Qty: 14 0RF Continued oxycodone 10 mg tablet 10 mg PO BID MDD 30 mg PRN (Reason: pain) Qty: 60 0RF Rx Instructions: May taken an additional tablet daily up to twice a month, if needed oxycodone 10 mg tablet 10 mg PO BID MDD 30 mg PRN (Reason: pain) Qty: 60 0RF Rx Instructions: Can take an occasional extra tab per day up to twice a month, if needed oxycodone 10 mg tablet 10 mg PO BID MDD 30 mg PRN (Reason: pain) Qty: 60 0RF Rx Instructions: May take an additional tab daily up to twice a month, if needed aspirin 81 MG tablet,delayed release (DR/EC) 81 mg PO DAILY (DME) nebulizers [Devilbiss Disposable Nebulizer] 1 EACH misc 1 ea Miscellaneous QID Qty: 1 Rx Instructions: Dx:R06.09 ARDS albuterol sulfate 2.5 mg /3 mL (0.083 %) solution for nebulization 2.5 mg UPD Q2H PRN PRN (Reason: shortness of breath or wheezing) Qty: 180 3RF (DME) Oxygen Tank See Rx Instructions .Route Rx Instructions: 11/01/22 Sleep Note: 3LPM for sleep.HE albuterol sulfate [Ventolin HFA] 90 mcg/actuation HFA aerosol inhaler 2 puff inhalation 6XD Qty: 8.5 6RF amlodipine 10 mg tablet 10 mg PO DAILY Qty: 90 3RF Patient Comments: Pt. states,I'm no longer taking this medication. Rx Instructions: lower BP <140/85 atorvastatin 40 mg tablet 40 mg PO QHS Qty: 90 3RF cephalexin 500 mg capsule 500 mg PO BID Qty: 180 3RF colchicine 0.6 mg tablet 0.6 mg PO BID PRN (Reason: gout attack) Qty: 30 3RF cyclobenzaprine 10 mg tablet 10 mg PO TID PRN (Reason: muscle spasm) Qty: 270 3RF Rx Instructions: 1 tablet in the morning and 2 tablets in the evening, as needed, for muscle spasms fenofibrate nanocrystallized 145 mg tablet 145 mg PO DAILY Qty: 90 3RF fluticasone propionate [Flonase Allergy Relief] 50 mcg/actuation spray,suspension 2 spray NS DAILY Qty: 1 6RF Rx Instructions: each nostril once daily for rhinnitis Trelegy Ellipta 100-62.5-25 mcg blister with device See Rx Instructions .ROUTE .COMPLEX Qty: 60 12RF Dose Instruction: INHALE 1 PUFF BY MOUTH DAILY Rx Instructions: INHALE 1 PUFF BY MOUTH DAILY furosemide 20 mg tablet 20 mg PO DAILY Qty: 90 3RF glipizide 5 mg tablet 5 mg PO BID Qty: 180 3RF lisinopril 40 mg tablet 80 mg PO DAILY Qty: 180 3RF metformin 500 mg tablet 1,000 mg PO BID Qty: 360 3RF mirtazapine [Remeron] 15 mg tablet 15 mg PO QPM Qty: 90 3RF nitroglycerin [Nitrostat] 0.4 mg tablet, sublingual 0.4 mg SL PRN Qty: 30 3RF triamcinolone acetonide 0.1 % cream 1 applic topical BID Qty: 30 5RF Rx Instructions: apply to feet daily (DME) Accu-Chek Sherri Plus test strp Strip See Rx Instructions .ROUTE .COMPLEX Qty: 300 3RF Dose Instruction: USE STRIPS DIRECTED THREE TIMES A DAY Rx Instructions: USE STRIPS DIRECTED THREE TIMES A DAY insulin glargine [Basaglar KwikPen U-100 Insulin] 100 unit/mL (3 mL) insulin pen See Rx Instructions subcut BID MDD 39 Qty: 15 6RF Rx Instructions: 19 units QAM, 24 units QHS, can take up to 30 units QHS after a large meal; subcut; (DME) lancets [Accu-Chek Softclix Lancets] Misc See Rx Instructions .ROUTE .MEDSUPPLY Qty: 100 6RF Rx Instructions: Dx: E11.9, to keep HbA1c <7%, test TID (DME) pen needle, diabetic [BD Ultra-Fine Rebecca Pen Needle] 32 gauge x 5/32 needle 1 ea Miscellaneous DAILY 30 Days Qty: 200 6RF Rx Instructions: To keep HbA1c below 6.5% semaglutide 1 mg/dose (2 mg/1.5 mL) pen injector 2 mg subcut QWEEK 28 Days Qty: 6 11RF acetaminophen [Tylenol] 325 mg Tablet 325 mg PO Q4H PRN Rx Instructions: 1-2 tabs Discontinued carvedilol 12.5 mg tablet 12.5 mg PO BID Qty: 180 3RF Discharge Instructions Instructions: RSV in adults - Discharge instructions Additional Instructions: Your carvedilol was increased to 25 mg to take stress off your heart. You were given clopidogrel to thin your blood along with aspirin. Dr. Gasca may decide to stop this when you see her. You should see Dr. Gasca within 2 weeks. We ordered an echocardiogram to be done before this. Come back if the chest pain is getting worse. We sent an antibiotic for your sinuses. Saline wrinse may also help. Referrals: Kathryn Gasca MD [ [facility] STAFF PHYSICIAN] - Activity:: Activity as Tolerated Equipment/Supplies:: No Equipment Needed Diet:: Carb Counting Discharge Orders Discharge Orders: Discharge Order (Routine); Ordered 04/20/24 Ordered By: Luis Cabezas Other Ambulatory Orders: US echocardiogram (Routine) Timeframe: 10 Day Facility: [facility] - Location: DIAGNOSTIC IMAGING Ordered By: Luis Cabezas DS: Summary Time Spent with Patient providing and/or coordinating discharge services: Greater than 30 minutes Status at Discharge Functional status at discharge: independent ambulation Overall status at discharge: patient is progressing back to baseline Mental Status: mental status grossly normal Speech and Movement: speech and movement normal Mood: congruent mood Affect: anxious affect Quality:SDOH Health Related Social Needs: Health related social needs inadequate housing (Z59.1), transportation insecurity (Z59.82), problems related to housing/economic circumstances (Z59.89), problems with daily activities (Z73.9) Exam Narrative Exam Narrative: General: alert and oriented x 3, NAD Lungs: CTAB, normal effort, no wheeze, slight bibasilar rales. Fair aeration. Chest: Palpable subcutaneous pacemaker left upper chest. Anterior chest wall is tender with palpation. Heart: RRR, 1/6 systolic murmur sternal border. Abdomen: Normal contour, soft nontender/ND Extremities: Without clubbing, cyanosis or pitting edema. Good capillary refill. Psych Mental Status: mental status grossly normal Speech and Movement: speech and movement normal Mood: congruent mood Affect: anxious affect DS: Data Vitals/I&O Vitals and I&O: Vital Signs Temperature 37 C 04/20/24 13:26 Temperature Source Temporal Artery Scan 04/20/24 13:36 Pulse 91 H 04/20/24 13:26 Pulse 93 H 04/20/24 13:26 Respiratory Rate 14 04/20/24 13:26 Respiratory Effort Normal 04/17/24 01:28 Respiratory Depth Normal 04/17/24 01:28 Respiratory Pattern Normal 04/17/24 01:28 Blood Pressure 174/81 H 04/20/24 13:26 Blood Pressure Mean 105 04/20/24 13:26 Blood Pressure Position Supine 04/17/24 01:28 Pulse Oximetry 93 04/20/24 08:26 Oxygen Delivery Method Room Air 04/20/24 13:36 Oxygen Flow Rate 0 04/20/24 13:36 Fraction of Inspired Oxygen (FIO2) 30 04/16/24 18:41 Pain Level 4 04/20/24 08:25 Comment pt report some relief with dilaudid 04/18/24 16:08 Comment 3 lpm via NC 04/18/24 20:00 Intake & Output 04/19/24 04/20/24 04/20/24 23:59 11:59 23:59 Intake Total 720 / 1620 380 / 380 Output Total 1475 / 2800 800 / 1175 375 / 1175 Balance -755 / -1180 -420 / -795 -375 / -795 Weight 76.8 kg Intake: IV 20 Oral 720 / 1600 360 / 360 Output: Urine 1475 / 2800 800 / 1175 375 / 1175 Other: Urine Color Yellow Yellow Yellow Urine Appearance Clear Clear Clear Urine Odor Normal Normal Comment amount is from several voids unknown amount pt used toilet Stool Size Large Moderate Stool Characteristics Soft Soft Formed Formed Brown Brown Data Completed and Pending Labs on day of discharge: Labs from last 24 hours 04/20/24 05:15 Sodium 143 Potassium 4.2 Chloride 106 Carbon Dioxide 29.1 Anion Gap 7.9 BUN 26 H Creatinine 1.4 H Est GFR (CKD-EPI 2020) 51.13 Glucose 147 H Calcium 10.1 Triglycerides 198 H Total Cholesterol 121 LDL Cholesterol, Calc 56 HDL Cholesterol 26 Vitamin B12 465 PFSH All Active Problems (Updated 04/20/24 @ 14:46 by Luis Cabezas) Sinusitis, acute (Acute) DVT prophylaxis (Acute) RSV (respiratory syncytial virus infection) (Acute) Hypomagnesemia (Acute) Acute hypoxic respiratory failure (Acute) Pulmonary edema (Acute) Acute exacerbation of CHF (congestive heart failure) (Acute) Acute non-ST elevation myocardial infarction (NSTEMI) (Acute) Acute kidney injury (Acute) Cardiomyopathy (Acute) Vitamin B12 deficiency (Acute) Complete heart block (Chronic) Vitamin D deficiency (Acute) Fatigue (Acute) Other secondary cataract, bilateral (Acute) Constipation due to pain medication (Acute) ASCVD (arteriosclerotic cardiovascular disease) (Acute) Toe deformity (Acute) Neuropathy (Acute) Nail dystrophy (Acute) COPD (chronic obstructive pulmonary disease) (Chronic) Pulmonary nodules (Acute) Obstructive sleep apnea syndrome (Chronic ~2017) Personal history of nicotine dependence (Acute) History of transcatheter aortic valve replacement (TAVR) (Acute) Diabetes mellitus type II, controlled (Chronic) Diverticulosis (Acute) long-term (current) use of opiate analgesic (Acute) Biventricular ICD (implantable cardioverter-defibrillator) in place (Chronic 01/03/18) [employer] 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-D PACEMAKER DEPENDENT - EXQUISITELY SENSITIVE TO TESTING Biventricular ICD (implantable cardioverter-defibrillator) in place (Acute) Chronic kidney disease (CKD) stage G3a/A1, moderately decreased glomerular filtration rate (GFR) between 45-59 mL/min/1.73 square meter and albuminuria creatinine ratio less than 30 mg/g (Acute 05/24/17) Dermatitis (Acute 02/08/11) Sciatica of left side (Acute 03/26/16) Chest pain (Acute) CHF (congestive heart failure) (Chronic) Advance directive on file (Acute) STEMI (ST elevation myocardial infarction) (Chronic) Sleep apnea (Chronic 12/28/15) C-PAP Sciatica of left side (Chronic 03/26/16) Primary osteoarthritis involving multiple joints (Chronic 01/04/16) mild DJD on x-ray L hip and L knee Pain in lower limb (Chronic 02/18/89) CHRONIC FOOT PAIN; [facility] ORTHOPEDIST PLATE RIGHT HEEL; SS DISABILITY 05/2003; rare Percocet use (avoid NSAID due to Ulcer history) Leg pain, left (Chronic 01/17/16) began 01/09/16 L knee, radiated thigh to buttock; ER 01/13 and 01/16; Left lat fem cut nerve injection 05/30/16; ? Left L3 radiculopathy: Pain clinic injec 09/2016. 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 poor control b. recent self hydration with two 2 L bottles of gingerale Medical History Cardiac resynchronization therapy defibrillator (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-D) in place (~01/03/18) Sciatica Eczema History of bacteremia Cardiac murmur (02/08/11) Acute kidney injury superimposed on chronic kidney disease pt. denies this Dyspnea on exertion (09/20/15) h/o ARDS due to Influenza B (03/2014); exacerbations 06/12/15 & 09/03/15; consult [facility], Pulmonary Adjustment disorder, unspecified (09/03/16) Acute gastroenteritis Encounter for physical therapy (04/16/14) s/p mechanical ventilation (04/16/14) s/p respiratory failure (04/16/14) a. secondary to influenza B and ARDS, requiring mechanical ventilation for four days, then extubated, reintubated and required another four days of mechanical ventilation, now on room air Influenza with respiratory manifestations (04/16/14) a. TYPE B INFLUENZA Surgical History History of cataract surgery Nuclear sclerotic cataract of left eye (~12/04/19) Cortical cataract of right eye (11/20/19) S/P TAVR (transcatheter aortic valve replacement) (~09/2017) Central line for TPN (03/31/14) with pneumonia Biopsy Skin of left nondenominational (12/10/14) Dr. Kermit Edwards Final pathologic diagnosis-Sebottheic keratosis Family History Mother Stroke Father , CHF at age 88. CHF (congestive heart failure) Fluid overload Hypertension Social History Smoking/Tobacco Use Status: Current-Occasional Tobacco Type: cigarettes and cigars Tobacco: How many years used: 60 Quit status: considering quitting Counseling given: counseling >3 minutes Smoking risk assessment performed?: Yes Alcohol Intake: former Drug use: Never Substance use type: does not use Caregiver/Support person: No Household members: none Housing: apartment Number of Children: 0 Communication Needs: Corrective Lenses Education Level: high school Do you need help understanding health information?: Rarely Pets and animals: Yes Pets and animals: cat(s) Current gender identity: male What is your relationship status?: refused to answer How often do you talk on the phone with friends or family?: twice per week How often do you get together with friends or relatives?: once per week How often do you attend samaritan or confucianist services?: decline to answer Do you belong to any clubs or organized social groups?: no Panel score (0-1 are the most socially isolated patients): 1 What type of physical activity do you participate in: bicycling and other Details: stationary bike Duration: 15-30 minutes/day Frequency: 3-4 times per week Rama/Yazidism: Alevism Special rama needs: No Agree to transfusion: Yes Seatbelt use: always Helmet use: No Drive intox or ride w/intox local company truck driver: No Water heater temp set <120 deg: Yes Working smoke detector in home: Yes Fire extinguisher in home: Yes Carbon monox detector in home: Yes Do you feel safe at home: Yes Do you feel safe in your relationship?: Yes Additional Social history: Exposure to- asbestos, chemicals an toxins. Time Spent with Patient Time Spent with Patient: 45-69 minutes Time was spent: preparing to see the patient(eg.review tests), obtaining and/or reviewing separately otained hiistory, ordering medications,tests, procedures, referring, communicating with other health spiritual care coordinator, indepentently interpreting results, counseling the patient and care coordination
--- NOTE | 2024-04-20 14:58 | CMDISCH_ITS ---
Date of service: 04/20/24 Time of Service: 15:00 LACE Index Scoring Tool Questions: Length of Stay (in days): 4 - 6 Was the patient admitted via the E.D.?: Yes Comorbidities: Previous M.I., Diabetes w/o Complication, Chronic Pulmonary Disease and Liver or Renal Disease E.D. Visits: 1 Answers: Total Score: 13 Risk of Readmission: High Risk Care Management Discharge Plan Reason for Hospitalization: RSV, Chest pain, CHF exacerbation Discharge Plan: Kam is discharged today with no new services. He declined the offer of HH RN, he stated that he will discuss that with his PCP at his f/u. Kam stated that he is going to review his discharge paperwork, and call his PCP in the morning to set up a f/u, if one hasn't been made for him already. Kam is aware of the services offered by [facility] and [facility], but stated that he makes too much money for them to be of help to him. Kam will f/u with his PCP and per his plan of care. Kam will transport home in a private vehicle, with his neighbor who is very helpful to him. Patient/Family Education Needs: Review of discharge instructions, activity, limitations, and discuss ask me 3. SDOH Health Related Social Needs: Health related social needs inadequate housing (Z59.1) , transportation insecurity (Z59.82), problems related to housing/economic circumstances (Z5 9.89), problems with daily activities (Z73.9) Health related social needs details: Kam lives in an apartment which is secure. His transportation instability relates to long distances only. Kam can only drive short distances. CM encouraged him to ask for support through his PCP to get a letter of necessity for RCT for his long distance appointments.
== END 2024-04-20 15:48 | disposition home or self-care (01) | DRG 280 ==
LOC: ER 23:58 → ICU 04-17 01:03
PROVIDERS: Family Medicine; Hospitalist; Admitting Provider Family Medicine; Emergency Provider Emergency Medicine; PCP Family Medicine; Responsible Provider Family Medicine; Visit Provider Family Medicine
DX: I21.A1 Myocardial infarction type 2 (principal); I50.33 Acute on chronic diastolic (congestive) heart failure; J96.01 Acute respiratory failure with hypoxia; I13.0 Hypertensive heart and chronic kidney disease with heart failure and stage 1 through stage 4 chronic kidney disease, or unspecified chronic kidney disease; I44.2 Atrioventricular block, complete; N17.9 Acute kidney failure, unspecified; I42.9 Cardiomyopathy, unspecified; G47.33 Obstructive sleep apnea (adult) (pediatric); E83.42 Hypomagnesemia; Z95.810 Presence of automatic (implantable) cardiac defibrillator; G89.4 Chronic pain syndrome; M54.17 Radiculopathy, lumbosacral region; E11.22 Type 2 diabetes mellitus with diabetic chronic kidney disease; N18.31 Chronic kidney disease, stage 3a; I12.9 Hypertensive chronic kidney disease with stage 1 through stage 4 chronic kidney disease, or unspecified chronic kidney disease; E11.42 Type 2 diabetes mellitus with diabetic polyneuropathy; I25.10 Atherosclerotic heart disease of native coronary artery without angina pectoris; Z79.82 Long term (current) use of aspirin; Z79.84 Long term (current) use of oral hypoglycemic drugs; Z79.85 Long-term (current) use of injectable non-insulin antidiabetic drugs; Z79.4 Long term (current) use of insulin; M15.9 Polyosteoarthritis, unspecified; Z95.4 Presence of other heart-valve replacement; Z99.81 Dependence on supplemental oxygen; E53.8 Deficiency of other specified B group vitamins; R91.8 Other nonspecific abnormal finding of lung field; M54.32 Sciatica, left side; I25.2 Old myocardial infarction; E78.1 Pure hyperglyceridemia; F17.210 Nicotine dependence, cigarettes, uncomplicated; B97.4 Respiratory syncytial virus as the cause of diseases classified elsewhere; Z79.891 Long term (current) use of opiate analgesic; Z66 Do not resuscitate; J44.9 Chronic obstructive pulmonary disease, unspecified; J01.90 Acute sinusitis, unspecified; B96.89 Other specified bacterial agents as the cause of diseases classified elsewhere
CPT/HCPCS: 00123; 36415; 76604; 80048; 80053; 80061; 82805; 85027; 87637; 93005; 93016; 93018; 93308; 94640; 96365; 96366; 96367; 96375; 99291; J1650; 71045; 78451; 82607; 83735; 83880; 84443; 84484; 85025; 85610; 85730; 93010; 94664; 94760; 99223; 99232; 99233; 99239; J1171; J1644; J1815; J1940; J2270; J2305; J2405; J2785; J3475

== ENCOUNTER 2024-04-22 03:32 | Outpatient (CLI) | payer MEDICARE, SELFPAY ==
[2024-04-22 17:34] LABS: Anion Gap 5.9 mmol/L (3-11); BUN 30 mg/dL (7-18); CO2 32.1 mmol/L (21.0-32.0); CREATININE 1.6 mg/dL (0.70-1.30); Calcium 10.5 mg/dL (8.5-10.1); Chloride 107 mmol/L (98-107); Estimated GFR 43.56 (mL/min/1.73m2); Glucose 83 mg/dL (74-106); Sodium 145 mmol/L (136-145)
== END 2024-04-22 03:33 | disposition home or self-care (01) ==
LOC: LBO 03:32
PROVIDERS: PCP Family Medicine; Visit Provider Family Medicine
DX: N18.30 Chronic kidney disease, stage 3 unspecified (principal)
CPT/HCPCS: 36415; 80048

== ENCOUNTER 2024-04-24 08:23 | Outpatient (CLI) | payer MEDICARE, SELFPAY ==
--- NOTE | 2024-04-24 08:15 | RT.EKG_ITS ---
APPROVED REPORT Exam: Resting ECG Reason for Exam: Chest pain Patient Location: O HR:89 bpm ECG Measurements Heart Rate 89 AXIS VA 175 P 74 QRSd 172 QRS 239 QT 437 T 75 QTc 532 Conclusion Atrial-sensed ventricular-paced rhythm...ventricular pacing tracks p-waves No further analysis attempted due to paced rhythm
== END 2024-04-24 08:24 | disposition home or self-care (01) ==
LOC: DI.KIM 08:23
PROVIDERS: PCP Family Medicine; Visit Provider Family Medicine
DX: R07.9 Chest pain, unspecified (principal)
CPT/HCPCS: 93010

== ENCOUNTER → 2024-05-07 09:19 | Outpatient (BNVA) | payer MEDICARE, SELFPAY | PROVIDERS: PCP Family Medicine; Referring Provider Family Medicine; Visit Provider Internal Medicine Cardiovascular Disease | DX: I10 Essential (primary) hypertension (principal); Z95.810 Presence of automatic (implantable) cardiac defibrillator; I50.20 Unspecified systolic (congestive) heart failure; Z95.2 Presence of prosthetic heart valve | CPT/HCPCS: 99214 ==

== ENCOUNTER 2024-05-07 10:20 | Observation (INO) | payer MEDICARE, SELFPAY ==
[2024-05-07] VITALS (17 sets, daily range): BP systolic 98–138; BP diastolic 39–93; PULSE 82–100; RESP 13–26; TEMP 36.3–36.7; O2SAT 96–99
--- NOTE | 2024-05-07 10:15 | RT.EKG_ITS ---
APPROVED REPORT Exam: Resting ECG Reason for Exam: Syncope Patient Location: E HR:89 bpm ECG Measurements Heart Rate 89 AXIS MD 168 P 0 QRSd 180 QRS 264 QT 435 T 86 QTc 531 Conclusion Ventricular-paced rhythm
--- NOTE | 2024-05-07 10:30 | DI.RAD_ITS ---
Exam(s) XR PORTABLE CHEST AP EXAM: XR PORTABLE CHEST AP CLINICAL HISTORY: chest pain TECHNIQUE: 2D digital imaging was performed. COMPARISON: CR XR PORTABLE CHEST AP from 04/16/2024 FINDINGS: LUNGS: Clear. No pleural abnormality seen. HEART: Normal size. Pacemaker. AORTA: Normal diameter. BONES: Unremarkable for age. Soft tissues: Unremarkable. IMPRESSION: No acute findings. DATA REPOSITORY: RADIATION DOSE DELIVERED:
[2024-05-07] MEDS: Aspirin 81 MG CHEW 324 MG CH (10:51)
[2024-05-07 11:10] LABS: Abs Immature Grans 0.02 10^3/uL (0.0-0.06); Absolute Basophil Count 0.05 10^3/uL (0.0-0.2); Absolute Eosinophil Count 0.15 10^3/uL (0.0-0.7); Absolute Lymphocyte Count 2.45 10^3/uL (1.2-3.4); Absolute Neutrophil Count 5.73 10^3/uL (1.2-6.7); Basophils % 0.6 %; Eosinophils % 1.7 %; HCT 43.6 % (40.0-50.0); HGB 14.4 g/dL (13.5-17.5); Immature Grans % 0.2 %; Lymphocytes % 27.2 %; MCH 29.6 pg (27.0-33.0); MCV 90 fL (80-95); Monocytes % 6.7 %; Neutrophils % 63.6 %; Platelet Count 370 10^3/uL (130-400); RBC 4.87 10^6/uL (4.36-5.78); RDW 13.5 % (11.8-14.1); RDW-SD 44.4 fL
[2024-05-07 11:24] LABS: INR 1.1 (0.9-1.1); PTT Activated 24.5 sec (20.6-30.2); Prothrombin Time 11.1 sec (9.1-11.1)
[2024-05-07 11:36] LABS: ALT 26 U/L (16-63); AST 23 U/L (15-37); Albumin 4.1 g/dL (3.4-5.0); Alkaline Phosphatase 37 U/L (46-116); Anion Gap 10.5 mmol/L (3-11); Bilirubin, Total 0.4 mg/dL (0.2-1.0); CO2 25.5 mmol/L (21.0-32.0); CREATININE 2.5 mg/dL (0.70-1.30); Chloride 104 mmol/L (98-107); Glucose 50 mg/dL (74-106); Lipase 82 U/L (<78); Magnesium 2.2 mg/dL; NT-proBNP 751 pg/mL (<300); Potassium 5.4 mmol/L (3.5-5.1); Sodium 140 mmol/L (136-145); Total Protein 8.3 g/dL (6.4-8.2); Troponin I 68 ng/L (<or=76)
[2024-05-07 11:38] LABS: BUN 102 mg/dL (7-18)
[2024-05-07] MEDS: Normal Saline 1,000 ML 1000 ML IV (11:59)
--- NOTE | 2024-05-07 12:13 | ED.GENADUL_ITS ---
Discharge Plan Disposition Patient Disposition: Admit to [facility] Condition: Stable Discharge Details Chief Complaint: Dizzy/Sync Clinical Impression: Chest pain of uncertain etiology, Acute kidney injury Primary Care Provider: Tien Galicia ED Provider: David Piedra Home Meds and New Rx's Prescriptions: No Action oxycodone 10 mg tablet 10 mg PO BID MDD 30 mg PRN (Reason: pain) Qty: 60 0RF Rx Instructions: May taken an additional tablet daily up to twice a month, if needed oxycodone 10 mg tablet 10 mg PO BID MDD 30 mg PRN (Reason: pain) Qty: 60 0RF Rx Instructions: Can take an occasional extra tab per day up to twice a month, if needed oxycodone 10 mg tablet 10 mg PO BID MDD 30 mg PRN (Reason: pain) Qty: 60 0RF Rx Instructions: May take an additional tab daily up to twice a month, if needed furosemide 20 mg tablet 40 mg PO DAILY Qty: 90 3RF spironolactone 25 mg tablet 25 mg PO DAILY Qty: 90 3RF naloxone [Narcan] 4 mg/actuation spray,non-aerosol 1 spray intranasal Q3M Qty: 2 0RF Rx Instructions: spray 1 dose into ONE nostril; alternate nostrils w each dose until help arrives albuterol sulfate 2.5 mg /3 mL (0.083 %) solution for nebulization 2.5 mg UPD Q2H PRN PRN (Reason: shortness of breath or wheezing) Qty: 180 3RF zolpidem [Ambien] 5 mg tablet 5 mg PO QHS PRN (Reason: insomnia) Qty: 5 0RF aspirin 81 MG tablet,delayed release (DR/EC) 81 mg PO DAILY (DME) nebulizers [Devilbiss Disposable Nebulizer] 1 EACH misc 1 ea Miscellaneous QID Qty: 1 Rx Instructions: Dx:R06.09 ARDS (DME) Oxygen Tank See Rx Instructions .Route Rx Instructions: 11/01/22 Sleep Note: 3LPM for sleep.HE albuterol sulfate [Ventolin HFA] 90 mcg/actuation HFA aerosol inhaler 2 puff inhalation 6XD Qty: 8.5 6RF amlodipine 10 mg tablet 10 mg PO DAILY Qty: 90 3RF Patient Comments: Pt. states,I'm no longer taking this medication. Rx Instructions: lower BP <140/85 atorvastatin 40 mg tablet 40 mg PO QHS Qty: 90 3RF cephalexin 500 mg capsule 500 mg PO BID Qty: 180 3RF colchicine 0.6 mg tablet 0.6 mg PO BID PRN (Reason: gout attack) Qty: 30 3RF cyclobenzaprine 10 mg tablet 10 mg PO TID PRN (Reason: muscle spasm) Qty: 270 3RF Rx Instructions: 1 tablet in the morning and 2 tablets in the evening, as needed, for muscle spasms fenofibrate nanocrystallized 145 mg tablet 145 mg PO DAILY Qty: 90 3RF fluticasone propionate [Flonase Allergy Relief] 50 mcg/actuation spray,suspension 2 spray NS DAILY Qty: 1 6RF Rx Instructions: each nostril once daily for rhinnitis Trelegy Ellipta 100-62.5-25 mcg blister with device See Rx Instructions .ROUTE .COMPLEX Qty: 60 12RF Dose Instruction: INHALE 1 PUFF BY MOUTH DAILY Rx Instructions: INHALE 1 PUFF BY MOUTH DAILY glipizide 5 mg tablet 5 mg PO BID Qty: 180 3RF lisinopril 40 mg tablet 80 mg PO DAILY Qty: 180 3RF metformin 500 mg tablet 1,000 mg PO BID Qty: 360 3RF mirtazapine [Remeron] 15 mg tablet 15 mg PO QPM Qty: 90 3RF nitroglycerin [Nitrostat] 0.4 mg tablet, sublingual 0.4 mg SL PRN Qty: 30 3RF triamcinolone acetonide 0.1 % cream 1 applic topical BID Qty: 30 5RF Rx Instructions: apply to feet daily (DME) Accu-Chek Sherri Plus test strp Strip See Rx Instructions .ROUTE .COMPLEX Qty: 300 3RF Dose Instruction: USE STRIPS DIRECTED THREE TIMES A DAY Rx Instructions: USE STRIPS DIRECTED THREE TIMES A DAY (DME) lancets [Accu-Chek Softclix Lancets] Misc See Rx Instructions .ROUTE .MEDSUPPLY Qty: 100 6RF Rx Instructions: Dx: E11.9, to keep HbA1c <7%, test TID (DME) pen needle, diabetic [BD Ultra-Fine Rebecca Pen Needle] 32 gauge x 5/32 needle 1 ea Miscellaneous DAILY 30 Days Qty: 200 6RF Rx Instructions: To keep HbA1c below 6.5% semaglutide 1 mg/dose (2 mg/1.5 mL) pen injector 2 mg subcut QWEEK 28 Days Qty: 6 11RF polyethylene glycol 3350 17 gram powder in packet 17 g PO DAILY PRN PRN (Reason: Constipation) Qty: 30 0RF acetaminophen [Tylenol] 325 mg Tablet 325 mg PO Q4H PRN Rx Instructions: 1-2 tabs carvedilol 25 mg Tablet 25 mg PO BID Qty: 60 0RF clopidogrel 75 mg Tablet 75 mg PO DAILY Qty: 30 0RF HPI General Date/Time Provider Initiated Documentation: 05/07/24 10:34 . HPI Narrative: 79 year-old male presents to ED today by POV/ambulating with a chief complaint of chest pain, onset at rest today, with some radiation to L arm- with recent stay in [facility] for cardiac problem, seen by Dr Dwyer, with history of AICD, with onset around 8149-2812 today. Quality described as central chest pain that came and went, lasting slightly longer than 45 minutes, but currently resolved, no radiation to syncope, nausea, fever, cough, abdominal pain, visual changes, endorses shortness of breath at baseline and dizziness during episode today. Severity is described as 4/10. Palliating factors include nothing specific attempted. Provoking factors include nothing specific. Events leading up to the incident/Associated Symptoms: Patient has not taken his morning medications. States he was started on some new medications after his discharge last week including furosemide. Patient not anticoagulated- is on DAPT. Related Data Home Medications ?Medication ?Instructions ?Recorded ?Confirmed aspirin 81 mg tablet,delayed 81 mg PO DAILY 05/05/12 05/07/24 release nebulizers (DevilToonTime Disposable #1 ea 11/14/15 05/07/24 Nebulizer mis) acetaminophen 325 mg tablet 325 mg PO Q4H PRN 05/16/18 05/07/24 (Tylenol) Oxygen 11/08/22 05/07/24 albuterol sulfate 90 mcg/actuation 2 puff inhalation 6XD #8.5 grams 09/12/23 05/07/24 aerosol inhaler (Ventolin HFA) amlodipine 10 mg tablet 10 mg PO DAILY #90 tab-caps 07/25/24 03/20/25 atorvastatin 40 mg tablet 40 mg PO QHS #90 tabs 09/12/23 05/07/24 cephalexin 500 mg capsule 500 mg PO BID #180 caps 09/12/23 05/07/24 colchicine 0.6 mg tablet 0.6 mg PO BID PRN gout attack #30 09/12/23 05/07/24 tabs cyclobenzaprine 10 mg tablet 10 mg PO TID PRN muscle spasm #270 09/12/23 05/07/24 tab-caps fenofibrate nanocrystallized 145 145 mg PO DAILY #90 tabs 09/12/23 05/07/24 mg tablet fluticasone fur. 100 mcg-umeclid See Rx Instructions .Route 09/12/23 05/07/24 62.5 mcg-vilant 25 mcg .COMPLEX #60 ea inhalat.powder (Trelegy Ellipta) fluticasone propionate 50 2 spray NS DAILY #1 unit 09/12/23 05/07/24 mcg/actuation nasal spray,suspension (Flonase Allergy Relief) glipizide 5 mg tablet 5 mg PO BID #180 tabs 09/12/23 05/07/24 lisinopril 40 mg tablet 80 mg (2 x 40 mg) PO DAILY #180 09/12/23 05/07/24 tabs metformin 500 mg tablet 1,000 mg (2 x 500 mg) PO BID #360 09/12/23 05/07/24 tabs mirtazapine 15 mg tablet (Remeron) 15 mg PO QPM #90 tabs 09/12/23 05/07/24 nitroglycerin 0.4 mg sublingual 0.4 mg sublingual PRN chest pain 09/12/23 05/07/24 tablet (Nitrostat) #30 tabs triamcinolone acetonide 0.1 % 1 applic topical BID #30 grams 09/12/23 05/07/24 topical cream blood sugar diagnostic (Accu-Chek #300 strips 01/27/24 05/07/24 Sherri Plus test strips) lancets (Accu-Chek Softclix #100 ea 01/27/24 05/07/24 Lancets) pen needle, diabetic 32 gauge x #200 ea 01/27/24 05/07/24 (BD Ultra-Fine Rebecca Pen Needle) semaglutide 1 mg/dose (2 mg/1.5 2 mg (1.5 mL) subcut QWEEK 28 days 03/02/24 05/07/24 mL) subcutaneous pen injector #6 mL oxycodone 10 mg tablet 10 mg PO BID PRN pain #60 tabs 04/10/24 05/07/24 oxycodone 10 mg tablet 10 mg PO BID PRN pain #60 tabs 04/10/24 05/07/24 oxycodone 10 mg tablet 10 mg PO BID PRN pain #60 tabs 04/10/24 05/07/24 carvedilol 25 mg tablet 25 mg PO BID #60 tabs 04/20/24 05/07/24 clopidogrel 75 mg tablet 75 mg PO DAILY #30 tabs 04/20/24 05/07/24 polyethylene glycol 3350 17 gram 17 g PO DAILY PRN PRN Constipation 04/21/24 05/07/24 oral powder packet #30 ea albuterol sulfate 2.5 mg/3 mL 2.5 mg (3 mL) UPD Q2H PRN PRN 04/24/24 05/07/24 (0.083 %) solution for nebulization shortness of breath or wheezing #180 mL furosemide 20 mg tablet 40 mg (2 x 20 mg) PO DAILY edema 04/24/24 05/07/24 or greater than 7 lb weight gain in one week #90 tabs naloxone 4 mg/actuation nasal 1 spray intranasal Q3M #2 ea 04/24/24 05/07/24 spray (Narcan) spironolactone 25 mg tablet 25 mg PO DAILY #90 tabs 04/24/24 05/07/24 zolpidem 5 mg tablet (Ambien) 5 mg PO QHS PRN insomnia #5 tabs 04/30/24 05/07/24 Previous Rx's ?Medication ?Instructions ?Recorded albuterol sulfate 90 mcg/actuation 2 puff inhalation 6XD #8.5 grams 09/12/23 aerosol inhaler (Ventolin HFA) amlodipine 10 mg tablet 10 mg PO DAILY #90 tab-caps 09/12/23 atorvastatin 40 mg tablet 40 mg PO QHS #90 tabs 09/12/23 cephalexin 500 mg capsule 500 mg PO BID #180 caps 09/12/23 colchicine 0.6 mg tablet 0.6 mg PO BID PRN gout attack #30 09/12/23 tabs cyclobenzaprine 10 mg tablet 10 mg PO TID PRN muscle spasm #270 09/12/23 tab-caps fenofibrate nanocrystallized 145 145 mg PO DAILY #90 tabs 09/12/23 mg tablet fluticasone fur. 100 mcg-umeclid See Rx Instructions .Route 09/12/23 62.5 mcg-vilant 25 mcg .COMPLEX #60 ea inhalat.powder (Trelegy Ellipta) fluticasone propionate 50 2 spray NS DAILY #1 unit 09/12/23 mcg/actuation nasal spray,suspension (Flonase Allergy Relief) glipizide 5 mg tablet 5 mg PO BID #180 tabs 09/12/23 lisinopril 40 mg tablet 80 mg (2 x 40 mg) PO DAILY #180 09/12/23 tabs metformin 500 mg tablet 1,000 mg (2 x 500 mg) PO BID #360 09/12/23 tabs mirtazapine 15 mg tablet (Remeron) 15 mg PO QPM #90 tabs 09/12/23 nitroglycerin 0.4 mg sublingual 0.4 mg sublingual PRN chest pain 09/12/23 tablet (Nitrostat) #30 tabs triamcinolone acetonide 0.1 % 1 applic topical BID #30 grams 09/12/23 topical cream blood sugar diagnostic (Accu-Chek #300 strips 01/27/24 Sherri Plus test strips) lancets (Accu-Chek Softclix #100 ea 01/27/24 Lancets) pen needle, diabetic 32 gauge x #200 ea 01/27/24 (BD Ultra-Fine Rebecca Pen Needle) semaglutide 1 mg/dose (2 mg/1.5 2 mg (1.5 mL) subcut QWEEK 28 days 03/02/24 mL) subcutaneous pen injector #6 mL oxycodone 10 mg tablet 10 mg PO BID PRN pain #60 tabs 04/10/24 oxycodone 10 mg tablet 10 mg PO BID PRN pain #60 tabs 04/10/24 oxycodone 10 mg tablet 10 mg PO BID PRN pain #60 tabs 04/10/24 carvedilol 25 mg tablet 25 mg PO BID #60 tabs 04/20/24 clopidogrel 75 mg tablet 75 mg PO DAILY #30 tabs 04/20/24 polyethylene glycol 3350 17 gram 17 g PO DAILY PRN PRN Constipation 04/21/24 oral powder packet #30 ea albuterol sulfate 2.5 mg/3 mL 2.5 mg (3 mL) UPD Q2H PRN PRN 04/24/24 (0.083 %) solution for nebulization shortness of breath or wheezing #180 mL furosemide 20 mg tablet 40 mg (2 x 20 mg) PO DAILY edema 04/24/24 or greater than 7 lb weight gain in one week #90 tabs naloxone 4 mg/actuation nasal 1 spray intranasal Q3M #2 ea 04/24/24 spray (Narcan) spironolactone 25 mg tablet 25 mg PO DAILY #90 tabs 04/24/24 zolpidem 5 mg tablet (Ambien) 5 mg PO QHS PRN insomnia #5 tabs 04/30/24 Allergies Allergy/AdvReac Type Severity Reaction Status Date / Time codeine AdvReac Intermediate GI Upset Verified 05/07/24 10:33 gabapentin AdvReac Intermediate Dizziness/L Verified 05/07/24 10:33 ightheade General Stated Complaint: Dizzy/Sync HOWARD: 3 Review of Systems All systems reviewed & are unremarkable except as noted in HPI and below Exam Narrative Exam Narrative: GENERAL APPEARANCE: Well-nourished, non-toxic, awake and alert, atraumatic, no acute distress. SKIN: Warm, pink, dry, intact, without rashes/lesions/ulcerations. HEAD: Normocephalic, atraumatic, normal hair distribution for gender/age. EYES: Normal conjunctiva, no exudates on lids/lashes. ENT: Nares patent, no circumoral cyanosis, no facial swelling NECK: Supple, trachea midline, painless cervical ROM. LUNGS/CHEST: Lungs CTA bilaterally, non-labored respirations, normal A/P diameter, symmetrical expansion, no chest wall deformity HEART (CV/PV): Regular rate and rhythm without murmur, no peripheral edema, no JVD. ABDOMEN: Soft, non-distended, no guarding. MSK: Normal ROM, no swelling/deformity to bilateral UEs or LEs, moving all extremities without weakness, no cyanosis, spine midline without tenderness, normal curvature. NEURO: Mental Status AAOx4 - alert to person, place, time, events No facial droop, no forehead involvement. Motor: No focal weakness - strength 5/5 in bilateral UEs and LEs, proximal and distal, symmetric. Sensory: sensation intact to light touch globally. Gait normal: patient ambulated without ataxia into ED room. PSYCH: euthymic, cooperative, pleasant, appropriate speech Course Vital Signs Vital signs: Vital Signs Temperature 36.4 C L 05/07/24 10:24 Pulse 86 05/07/24 10:24 Respiratory Rate 16 05/07/24 10:24 Blood Pressure 129/78 05/07/24 10:24 Pulse Oximetry 98 05/07/24 10:24 Temperature 36.4 C L 05/07/24 10:24 Pulse 88 05/07/24 11:01 Pulse 88 05/07/24 11:01 Respiratory Rate 23 05/07/24 11:10 Respiratory Effort Short of Breath 05/07/24 11:10 Respiratory Depth Normal 05/07/24 11:10 Respiratory Pattern Normal 05/07/24 11:10 Blood Pressure 130/93 H 05/07/24 11:01 Blood Pressure Mean 104 05/07/24 11:01 Blood Pressure Position Supine 05/07/24 10:24 Pulse Oximetry 97 05/07/24 11:01 Pain Level 0 05/07/24 10:24 Lab/Test Results Lab/Test Results: Laboratory Tests Range/Units 05/07/24 10:56 WBC (4.4-10.8) 10^3/uL 9.00 RBC (4.36-5.78) 10^6/uL 4.87 Hgb (13.5-17.5) g/dL 14.4 Hct (40.0-50.0) % 43.6 MCV (80-95) fL 90 MCH (27.0-33.0) pg 29.6 MCHC (32.0-36.0) % 33.0 RDW (11.8-14.1) % 13.5 Plt Count (130-400) 10^3/uL 370 MPV (8.0-11.0) fL 9.0 Immature Gran % % 0.2 Neutrophils % % 63.6 Lymphocytes % % 27.2 Monocytes % % 6.7 Eosinophils % % 1.7 Basophils % % 0.6 Nucleated RBC % (0.0-0.3) % 0.0 Absolute Neutrophils (1.2-6.7) 10^3/uL 5.73 Absolute Lymphocytes (1.2-3.4) 10^3/uL 2.45 Absolute Monocytes (0.1-0.8) 10^3/uL 0.60 Absolute Eosinophils (0.0-0.7) 10^3/uL 0.15 Absolute Basophils (0.0-0.2) 10^3/uL 0.05 PT (9.1-11.1) sec 11.1 INR (0.9-1.1) 1.1 APTT (20.6-30.2) sec 24.5 Sodium (136-145) mmol/L 140 Potassium (3.5-5.1) mmol/L 5.4 H Chloride (98-107) mmol/L 104 Carbon Dioxide (21.0-32.0) mmol/L 25.5 Anion Gap (3-11) mmol/L 10.5 BUN (7-18) mg/dL 102 H* Creatinine (0.70-1.30) mg/dL 2.5 H Est GFR (CKD-EPI 2020) (mL/min/1.73m2) 25.50 Glucose (74-106) mg/dL 50 L Calcium (8.5-10.1) mg/dL 11.0 H Magnesium mg/dL 2.2 Total Bilirubin (0.2-1.0) mg/dL 0.4 AST (15-37) U/L 23 ALT (16-63) U/L 26 Alkaline Phosphatase (46-116) U/L 37 L Troponin I (<or=76) ng/L 68 NT-Pro-B Natriuret Pep (<300) pg/mL 751 H Total Protein (6.4-8.2) g/dL 8.3 H Albumin (3.4-5.0) g/dL 4.1 Lipase (<78) U/L 82 H Medical Decision Making This dictation utilizes [id number] dictation software and may contain unedited grammatical errors. 79 year-old male presents to ED today by POV/ambulating with a chief complaint of chest pain, onset at rest today, with some radiation to L arm- with recent stay in [facility] for cardiac problem, seen by Dr Dwyer, with history of AICD, with onset around 1714-3693 today. Quality described as central chest pain that came and went, lasting slightly longer than 45 minutes, but currently resolved, no radiation to syncope, nausea, fever, cough, abdominal pain, visual changes, endorses shortness of breath at baseline and dizziness during episode today. Severity is described as 4/10. Palliating factors include nothing specific attempted. Provoking factors include nothing specific. Events leading up to the incident/Associated Symptoms: Patient has not taken his morning medications. States he was started on some new medications after his discharge last week including furosemide. Patients' medical history: History of complete heart block with implanted AICD, COPD, ANNABELLE, diabetes mellitus, history of TAVR, history of CHF, CKD, hypertension, hyperlipidemia. Family and social history: Endorses kidney failure in both parents. Pertinent exam findings / vital signs include benign cardiopulmonary exam, benign abdomen, neuro intact. Differential / pathologies of concern include ACS, CHF, DONTAE, unlikely pneumonia, unlikely PE pathology, stable angina. Diagnostic studies of: -CBC, CMP, lipase, serial troponins, magnesium, BNP, EKG, chest x-ray, coag studies. -CBC shows no acute abnormality -CMP shows critical BUN at 102 with an DONTAE with creatinine 2.5 -Magnesium within normal limits -Serial troponins negative and stable -BNP 751 -Lipase negative -Coagulation studies benign -EKG without ischemic changes, shows ventricular paced rhythm -Chest x-ray shows no acute pathology Interventions of: -324 mg chewable aspirin. -Consulted with hospitalist Dr. Rubin for admission, accepted at 1245 ED Course/Assessment/Plan: 79-year-old male presents after an admission last week for chest pain with chest pain starting early this morning at rest lasting longer than 45 minutes sev erity 4/10, serial troponins are negative and his EKG shows no ectopic or ischemic changes, he is not an active chest pain throughout his visit today, he was started on furosemide due to heart failure and has a significant DONTAE likely in the setting of not drinking enough fluids on his new diuretic. I did discuss with hospitalist Dr. Rubin who accepted for admission, he may or may not need cardiology consult from the inpatient side as he did recently have a nuclear perfusion scan's. Findings not consistent with ACS, PE, PNA, ARF. Disposition of Chest Pain of Uncertain Etiology, Acute Kidney Injury. Patient verbalized understanding of the plan and return to ED criteria and engaged in shared decision making. Medical Records Medical records reviewed: Yes I reviewed the patient's medical records. Imaging Data Radiologic Study: Attestation: I personally reviewed and interpreted this imaging study as follows: Imaging: X-Ray Radiologist's impression: EXAM: XR PORTABLE CHEST AP CLINICAL HISTORY: chest pain TECHNIQUE: 2D digital imaging was performed. COMPARISON: CR XR PORTABLE CHEST AP from 04/16/2024 FINDINGS: LUNGS: Clear. No pleural abnormality seen. HEART: Normal size. Pacemaker. AORTA: Normal diameter. BONES: Unremarkable for age. Soft tissues: Unremarkable. IMPRESSION: No acute findings. Lab Data Lab results reviewed: Yes I reviewed the patient's lab results. Labs: Laboratory Tests Range/Units 05/07/24 05/07/24 10:56 11:55 WBC (4.4-10.8) 10^3/uL 9.00 RBC (4.36-5.78) 10^6/uL 4.87 Hgb (13.5-17.5) g/dL 14.4 Hct (40.0-50.0) % 43.6 MCV (80-95) fL 90 MCH (27.0-33.0) pg 29.6 MCHC (32.0-36.0) % 33.0 RDW (11.8-14.1) % 13.5 Plt Count (130-400) 10^3/uL 370 MPV (8.0-11.0) fL 9.0 Immature Gran % % 0.2 Neutrophils % % 63.6 Lymphocytes % % 27.2 Monocytes % % 6.7 Eosinophils % % 1.7 Basophils % % 0.6 Nucleated RBC % (0.0-0.3) % 0.0 Absolute Neutrophils (1.2-6.7) 10^3/uL 5.73 Absolute Lymphocytes (1.2-3.4) 10^3/uL 2.45 Absolute Monocytes (0.1-0.8) 10^3/uL 0.60 Absolute Eosinophils (0.0-0.7) 10^3/uL 0.15 Absolute Basophils (0.0-0.2) 10^3/uL 0.05 PT (9.1-11.1) sec 11.1 INR (0.9-1.1) 1.1 APTT (20.6-30.2) sec 24.5 Sodium (136-145) mmol/L 140 Potassium (3.5-5.1) mmol/L 5.4 H Chloride (98-107) mmol/L 104 Carbon Dioxide (21.0-32.0) mmol/L 25.5 Anion Gap (3-11) mmol/L 10.5 BUN (7-18) mg/dL 102 H* Creatinine (0.70-1.30) mg/dL 2.5 H Est GFR (CKD-EPI 2020) (mL/min/1.73m2) 25.50 Glucose (74-106) mg/dL 50 L Calcium (8.5-10.1) mg/dL 11.0 H Magnesium mg/dL 2.2 Total Bilirubin (0.2-1.0) mg/dL 0.4 AST (15-37) U/L 23 ALT (16-63) U/L 26 Alkaline Phosphatase (46-116) U/L 37 L Troponin I (<or=76) ng/L 68 64 NT-Pro-B Natriuret Pep (<300) pg/mL 751 H Total Protein (6.4-8.2) g/dL 8.3 H Albumin (3.4-5.0) g/dL 4.1 Lipase (<78) U/L 82 H Quality:SDOH Health Related Social Needs: Health related social needs inadequate housing (Z59.1) , transportation insecurity (Z59.82), problems related to housing/economic circumstances (Z59.89), problems with daily activities (Z73.9) Health related social needs details Kam lives in an a partment which is se cure. His transportation instability relates to long distances only. Kam can only drive short distances. CM encouraged him to ask for support through his PCP to get a letter of necessity for RCT for his long distance appointments. PFSH All Active Problems (Updated 05/07/24 @ 13:01 by MANUEL Deutsch) Acute kidney injury (Acute) Chest pain of uncertain etiology (Acute) Heart failure with reduced ejection fraction (Acute) Insomnia (Acute) Sinusitis, acute (Acute) Pulmonary edema (Acute) Acute kidney injury (Acute) Cardiomyopathy (Acute) Vitamin B12 deficiency (Acute) Vitamin D deficiency (Acute) Fatigue (Acute) Other secondary cataract, bilateral (Acute) Constipation due to pain medication (Acute) ASCVD (arteriosclerotic cardiovascular disease) (Acute) Toe deformity (Acute) Neuropathy (Acute) Nail dystrophy (Acute) Pulmonary nodules (Acute) Personal history of nicotine dependence (Acute) History of transcatheter aortic valve replacement (TAVR) (Acute) Diabetes mellitus type II, controlled (Chronic) Advance directive on file (Acute) CHF (congestive heart failure) (Chronic) Chest pain (Acute) Sciatica of left side (Acute 03/26/16) Dermatitis (Acute 02/08/11) Chronic kidney disease (CKD) stage G3a/A1, moderately decreased glomerular filtration rate (GFR) between 45-59 mL/min/1.73 square meter and albuminuria creatinine ratio less than 30 mg/g (Acute 05/24/17) Biventricular ICD (implantable cardioverter-defibrillator) in place (Acute) Diverticulosis (Acute) custodial (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 Left L3 radiculopathy: Pain clinic injec 09/2016. Left lumbar radiculopathy (Chronic 10/26/16) s/p Left L3 steroid inj 09/2016 Dr Olsen Hypertriglyceridemia (Chronic 12/31/14) Distal paresthesia (Chronic 02/16/14) nocturnal warm feelings both feet began about 11/2013, ?early peripheral neuropathy Chronic obstructive pulmonary disease (Chronic 01/21/17) Dr Wright 12/201601/02/19 F/U with Dr Ibrahim Neuropathy, lateral femoral cutaneous nerve (Chronic) Diabetes mellitus, type II (Chronic) a. poor control b. recent self hydration with two 2 L bottles of gingerale Hypertension (Chronic) Hyperlipidemia (Chronic) Obesity (Chronic) Peripheral neuropathy (Chronic) Weakness (Chronic 04/16/14) Medical History (Updated 05/07/24 @ 13:01 by MANUEL Deutsch) Complete heart block COPD (chronic obstructive pulmonary disease) Obstructive sleep apnea syndrome (~2016) DM neuro manif type II Chronic pain disorder (10/26/16) multiple sources; s/p Chronic Pain workshop [facility], s/p PT; s/p [place] workshop Lumbar back pain with radiculopathy affecting left lower extremity Cardiac resynchronization therapy defibrillator (DAYCARE ASSISTANT-D) in place (~01/03/18) Sciatica Eczema History of bacteremia Cardiac murmur (02/08/11) Acute kidney injury superimposed on chronic kidney disease pt. denies this Adjustment disorder, unspecified (09/03/16) Acute gastroenteritis Encounter for physical therapy (04/16/14) s/p mechanical ventilation (04/16/14) s/p respiratory failure (04/16/14) a. secondary to influenza B and ARDS, requiring mechanical ventilation for four days, then extubated, reintubated and required another four days of mechanical ventilation, now on room air Influenza with respiratory manifestations (04/16/14) a. TYPE B INFLUENZA Surgical History Biventricular ICD (implantable cardioverter-defibrillator) in place (01/03/18) [employer] DAYCARE ASSISTANT-D PACEMAKER DEPENDENT - EXQUISITELY SENSITIVE TO TESTING History of cataract surgery Nuclear sclerotic cataract of left eye (~12/04/19) Cortical cataract of right eye (11/20/19) S/P TAVR (transcatheter aortic valve replacement) (~09/2017) Central line for TPN (03/31/14) with pneumonia Biopsy Skin of left pentecostal (12/10/14) Dr. Kermit Edwards Final pathologic diagnosis-Sebottheic keratosis Family History Mother Stroke Father , CHF at age 88. CHF (congestive heart failure) Fluid overload Hypertension Social History Smoking/Tobacco Use Status: Current-Occasional Tobacco Type: cigarettes and cigars Tobacco: How many years used: 60 Quit status: considering quitting Counseling given: counseling >3 minutes Smoking risk assessment performed?: Yes Alcohol Intake: former Drug use: Never Substance use type: does not use Caregiver/Support person: No Household members: none Housing: apartment Number of Children: 0 Communication Needs: Corrective Lenses Education Level: high school Do you need help understanding health information?: Rarely Pets and animals: Yes Pets and animals: cat(s) Current gender identity: male What is your relationship status?: refused to answer How often do you talk on the phone with friends or family?: twice per week How often do you get together with friends or relatives?: once per week How often do you attend mormonism or yarsanism services?: decline to answer Do you belong to any clubs or organized social groups?: no Panel score (0-1 are the most socially isolated patients): 1 What type of physical activity do you participate in: bicycling and other Details: stationary bike Duration: 15-30 minutes/day Frequency: 3-4 times per week Rama/Episcopalian: Islam Special rama needs: No Agree to transfusion: Yes Seatbelt use: always Helmet use: No Drive intox or ride w/intox crew truck driver: No Water heater temp set <120 deg: Yes Working smoke detector in home: Yes Fire extinguisher in home: Yes Carbon monox detector in home: Yes Do you feel safe at home: Yes Do you feel safe in your relationship?: Yes Additional Social history: Exposure to- asbestos, chemicals an toxins.
[2024-05-07 12:22] LABS: Troponin I 64 ng/L (<or=76)
--- NOTE | 2024-05-07 13:07 | W.PM.HP.N ---
Date of service: 05/07/24 Time of Service: 13:08 Assessment and Plan Assessment and plan (1) Acute kidney injury superimposed on chronic kidney disease: Assessment and plan: Hospitalized earlier this month with NSTEMI with transient increase in Cr Home on chronic furosemide dosing; reduced oral fluid intake Cr 2.5 on presentation from baseline 1.3 Slow IVF - last LVEF 40% Serial BMP trending Avoid nephrotoxic RX- renal dosing (2) Hyperkalemia: Status: Acute Assessment and plan: Lokelma BMP (3) Heart failure with reduced ejection fraction: Status: Acute Assessment and plan: Hold lisinopril On home dose Coreg (4) Cardiomyopathy: Status: Acute Assessment and plan: On tele Continue home meds (5) ASCVD (arteriosclerotic cardiovascular disease): Status: Acute Assessment and plan: Continue home Lipitor Gemfibrozil on hold CrCl < 30ml/minute (6) COPD (chronic obstructive pulmonary disease): Assessment and plan: Continue home regimen- no exacerbation Continue to monitor (7) Chronic pain disorder: Assessment and plan: On home dose oxycodone (8) Diabetes mellitus type II, controlled: Status: Chronic Assessment and plan: Fingersticks AC and HS with SSI- adjust scale as needed hold oral antihyperglycemic drugs while inpatient adjust dosing as per renal function prior to d/c VS PCP management ideal dose of glipizide --as per discussion with pharmacy : 2.5mg daily d/t eGFr < 50 ml/min (9) On deep vein thrombosis (DVT) prophylaxis: Status: Acute Assessment and plan: On renally adjusted Lovenox SC Discussed with Dr. Rubin History of Present Illness History of Present Illness Chief Complaint: Chest pain at rest Narrative: This is a 79-year-old male patient recently discharged on ASA and plavix and chronic dose of oral furosemide s/p NSTEMI presented today to the ED at [facility] for evaluation of chets pain at rest with radiation to left UE, lasting 90 minutes with spontaneous resolution at presentation. PMHx includes CAD, HFrEF with last LVEF of 40%, s/p TAVR with AICD, CKD,, DM II, HTN. COPD, ANNABELLE. EKG showed no signs of coronary occlusion and appeared 100% V-paced, HR 89.Troponins were flat at 68 & 64. Labs were significant for BUN/Cr at 102/2.5 from baseline around 30/1.3, potassium at 5.4. The patient was admitted to the medical surgical floor with telemetry for further evaluation and management. DNR status confirmed. Patient reported increased weakness,difficulty with focus, chills, chest pain, dizziness, reduced fluid intake over 1-2 weeks. Denies fevers, night sweats increased in shortness of breath,productive cough chest pain reoccurrence since , nausea, vomiting, diarrhea or dysuria. Review of Systems All systems reviewed & are unremarkable except as noted in HPI and below PFSH All Active Problems (Updated 05/07/24 @ 16:05 by Barb Dugan APRN) Hyperkalemia (Acute) On deep vein thrombosis (DVT) prophylaxis (Acute) Acute kidney injury (Acute) Chest pain of uncertain etiology (Acute) Heart failure with reduced ejection fraction (Acute) Insomnia (Acute) Sinusitis, acute (Acute) Pulmonary edema (Acute) Acute kidney injury (Acute) Cardiomyopathy (Acute) Vitamin B12 deficiency (Acute) Vitamin D deficiency (Acute) Fatigue (Acute) Other secondary cataract, bilateral (Acute) Constipation due to pain medication (Acute) ASCVD (arteriosclerotic cardiovascular disease) (Acute) Toe deformity (Acute) Neuropathy (Acute) Nail dystrophy (Acute) Pulmonary nodules (Acute) Personal history of nicotine dependence (Acute) History of transcatheter aortic valve replacement (TAVR) (Acute) Diabetes mellitus type II, controlled (Chronic) Advance directive on file (Acute) CHF (congestive heart failure) (Chronic) Chest pain (Acute) Sciatica of left side (Acute 03/26/16) Dermatitis (Acute 02/08/11) Chronic kidney disease (CKD) stage G3a/A1, moderately decreased glomerular filtration rate (GFR) between 45-59 mL/min/1.73 square meter and albuminuria creatinine ratio less than 30 mg/g (Acute 05/24/17) Biventricular ICD (implantable cardioverter-defibrillator) in place (Acute) Diverticulosis (Acute) [facility] (current) use of opiate analgesic (Acute) Sleep apnea (Chronic 12/28/15) C-PAP Sciatica of left side (Chronic 03/26/16) Primary osteoarthritis involving multiple joints (Chronic 01/04/16) mild DJD on x-ray L hip and L knee Pain in lower limb (Chronic 02/18/89) CHRONIC FOOT PAIN; CVH ORTHOPEDIST PLATE RIGHT HEEL; SS DISABILITY 05/2003; rare Percocet use (avoid NSAID due to Ulcer history) Leg pain, left (Chronic 01/17/16) began 01/09/16 L knee, radiated thigh to buttock; ER 01/13 and 01/16; Left lat fem cut nerve injection 05/30/16; ? Left L3 radiculopathy: Pain clinic injec 09/2016. Left lumbar radiculopathy (Chronic 10/26/16) s/p Left L3 steroid inj 09/2016 Dr Olsen Hypertriglyceridemia (Chronic 12/31/14) Distal paresthesia (Chronic 02/16/14) nocturnal warm feelings both feet began about 11/2013, ?early peripheral neuropathy Chronic obstructive pulmonary disease (Chronic 01/21/17) Dr Wright 12/201601/02/19 F/U with Dr Ibrahim Neuropathy, lateral femoral cutaneous nerve (Chronic) Diabetes mellitus, type II (Chronic) a. poor control b. recent self hydration with two 2 L bottles of gingerale Hypertension (Chronic) Hyperlipidemia (Chronic) Obesity (Chronic) Peripheral neuropathy (Chronic) Weakness (Chronic 04/16/14) Medical History (Updated 05/07/24 @ 16:05 by Barb Dugan APRN) Complete heart block COPD (chronic obstructive pulmonary disease) Obstructive sleep apnea syndrome (~2016) DM neuro manif type II Chronic pain disorder (10/26/16) multiple sources; s/p Chronic Pain workshop [facility], s/p PT; s/p [place] workshop Lumbar back pain with radiculopathy affecting left lower extremity Cardiac resynchronization therapy defibrillator (HAT BAND ATTACHER-D) in place (~01/03/18) Sciatica Eczema History of bacteremia Cardiac murmur (02/08/11) Acute kidney injury superimposed on chronic kidney disease pt. denies this Adjustment disorder, unspecified (09/03/16) Acute gastroenteritis Encounter for physical therapy (04/16/14) s/p mechanical ventilation (04/16/14) s/p respiratory failure (04/16/14) a. secondary to influenza B and ARDS, requiring mechanical ventilation for four days, then extubated, reintubated and required another four days of mechanical ventilation, now on room air Influenza with respiratory manifestations (04/16/14) a. TYPE B INFLUENZA Surgical History Biventricular ICD (implantable cardioverter-defibrillator) in place (01/03/18) [employer] HAT BAND ATTACHER-D PACEMAKER DEPENDENT - EXQUISITELY SENSITIVE TO TESTING History of cataract surgery Nuclear sclerotic cataract of left eye (~12/04/19) Cortical cataract of right eye (11/20/19) S/P TAVR (transcatheter aortic valve replacement) (~09/2017) Central line for TPN (03/31/14) with pneumonia Biopsy Skin of left bahai (12/10/14) Dr. Kermit Edwards Final pathologic diagnosis-Sebottheic keratosis Family History Mother Stroke Father , CHF at age 88. CHF (congestive heart failure) Fluid overload Hypertension Social History Smoking/Tobacco Use Status: Current-Occasional Tobacco Type: cigarettes and cigars Tobacco: How many years used: 60 Quit status: considering quitting Counseling given: counseling >3 minutes Smoking risk assessment performed?: Yes Alcohol Intake: former Drug use: Never Substance use type: does not use Caregiver/Support person: No Household members: none Housing: apartment Number of Children: 0 Communication Needs: Corrective Lenses Education Level: high school Do you need help understanding health information?: Rarely Pets and animals: Yes Pets and animals: cat(s) Current gender identity: male What is your relationship status?: refused to answer How often do you talk on the phone with friends or family?: twice per week How often do you get together with friends or relatives?: once per week How often do you attend baptism or zoroastrianism services?: decline to answer Do you belong to any clubs or organized social groups?: no Panel score (0-1 are the most socially isolated patients): 1 What type of physical activity do you participate in: bicycling and other Details: stationary bike Duration: 15-30 minutes/day Frequency: 3-4 times per week Rama/Holiness: Rastafarian Special rama needs: No Agree to transfusion: Yes Seatbelt use: always Helmet use: No Drive intox or ride w/intox mobile lounge driver or operator: No Water heater temp set <120 deg: Yes Working smoke detector in home: Yes Fire extinguisher in home: Yes Carbon monox detector in home: Yes Do you feel safe at home: Yes Do you feel safe in your relationship?: Yes Additional Social history: Exposure to- asbestos, chemicals an toxins. Meds Allergies and Home Medications Allergies Allergy/AdvReac Type Severity Reaction Status Date / Time codeine AdvReac Intermediate GI Upset Verified 05/07/24 10:33 gabapentin AdvReac Intermediate Dizziness/L Verified 05/07/24 10:33 ightheade Home Medications ?Medication ?Instructions ?Recorded ?Confirmed ?Type aspirin 81 mg tablet,delayed 81 mg PO DAILY 05/05/12 05/07/24 History release nebulizers (Devilbiss Disposable #1 ea 11/14/15 05/07/24 History Nebulizer misc) acetaminophen 325 mg tablet 325 mg PO Q4H PRN 05/16/18 05/07/24 History (Tylenol) Oxygen 11/08/22 05/07/24 History amlodipine 10 mg tablet 10 mg PO DAILY #90 tab-caps 09/12/23 05/07/24 Rx atorvastatin 40 mg tablet 40 mg PO QHS #90 tabs 09/12/23 05/07/24 Rx cephalexin 500 mg capsule 500 mg PO BID #180 caps 09/12/23 05/07/24 Rx colchicine 0.6 mg tablet 0.6 mg PO BID PRN gout attack #30 09/12/23 05/07/24 Rx tabs fenofibrate nanocrystallized 145 145 mg PO DAILY #90 tabs 09/12/23 05/07/24 Rx mg tablet fluticasone fur. 100 mcg-umeclid See Rx Instructions .Route 09/12/23 05/07/24 Rx 62.5 mcg-vilant 25 mcg .COMPLEX #60 ea inhalat.powder (Trelegy Ellipta) fluticasone propionate 50 2 spray NS DAILY #1 unit 09/12/23 05/07/24 Rx mcg/actuation nasal spray,suspension (Flonase Allergy Relief) glipizide 5 mg tablet 5 mg PO BID #180 tabs 09/12/23 05/07/24 Rx lisinopril 40 mg tablet 80 mg (2 x 40 mg) PO DAILY #180 09/12/23 05/07/24 Rx tabs metformin 500 mg tablet 1,000 mg (2 x 500 mg) PO BID #360 09/12/23 05/07/24 Rx tabs mirtazapine 15 mg tablet (Remeron) 15 mg PO QPM #90 tabs 09/12/23 05/07/24 Rx nitroglycerin 0.4 mg sublingual 0.4 mg sublingual PRN chest pain 09/12/23 05/07/24 Rx tablet (Nitrostat) #30 tabs triamcinolone acetonide 0.1 % 1 applic topical BID #30 grams 09/12/23 05/07/24 Rx topical cream blood sugar diagnostic (Accu-Chek #300 strips 01/27/24 05/07/24 Rx Sherri Plus test strips) lancets (Accu-Chek Softclix #100 ea 01/27/24 05/07/24 Rx Lancets) pen needle, diabetic 32 gauge x #200 ea 01/27/24 05/07/24 Rx 5/32 (BD Ultra-Fine Rebecca Pen Needle) semaglutide 1 mg/dose (2 mg/1.5 2 mg (1.5 mL) subcut QWEEK 28 days 03/02/24 05/07/24 Rx mL) subcutaneous pen injector #6 mL oxycodone 10 mg tablet 10 mg PO BID PRN pain #60 tabs 04/10/24 05/07/24 Rx carvedilol 25 mg tablet 25 mg PO BID #60 tabs 04/20/24 05/07/24 Rx clopidogrel 75 mg tablet 75 mg PO DAILY #30 tabs 04/20/24 05/07/24 Rx polyethylene glycol 3350 17 gram 17 g PO DAILY PRN PRN Constipation 04/21/24 05/07/24 Rx oral powder packet #30 ea albuterol sulfate 2.5 mg/3 mL 2.5 mg (3 mL) UPD Q2H PRN PRN 04/24/24 05/07/24 Rx (0.083 %) solution for nebulization shortness of breath or wheezing #180 mL furosemide 20 mg tablet 40 mg (2 x 20 mg) PO DAILY edema 04/24/24 05/07/24 Rx or greater than 7 lb weight gain in one week #90 tabs naloxone 4 mg/actuation nasal 1 spray intranasal Q3M #2 ea 03/07/25 03/20/25 Rx spray (Narcan) spironolactone 25 mg tablet 25 mg PO DAILY #90 tabs 04/24/24 05/07/24 Rx albuterol sulfate 90 mcg/actuation 2 puff inhalation 6XD PRN 05/07/24 05/07/24 History aerosol inhaler (Ventolin HFA) cyclobenzaprine 10 mg tablet 10 mg PO TID PRN PRN muscle spasm 05/07/24 05/07/24 History semaglutide 2 mg/dose (8 mg/3 mL) 8 mg subcut QWEEK 05/07/24 05/07/24 History subcutaneous pen injector (Ozempic) Exam Narrative Exam Narrative: Constitutional The patient is sitting on bed without acute distress HENMT: Head is atraumatic, normocephalic, no lymphadenopathy. Facial structures with normal appearance Eyes: Well aligned Neck: Normal ROM, no meningeal signs Neuro:alert and oriented X4 , no neurological focal deficit Chest:Chest is symmetrical Resp: Unlabored breathing, clear lung bilaterally with decreased bases Cardio: regular rhythm, S1, S2, no murmur, capillary refill<3 sec., positive pulses to all 4 ext. GI: Abdomen is not distended, soft and non tender, bowel sounds are present : Negative CVA tenderness Back/spine/Pelvis: No back tenderness, normal alignment Integumentary: No lesions or rash on exposed skin Extremities: strength 5/5 to bilateral lower and upper extremities Psych: RASS 0, congruent mood and normal affect. Results Labs 05/07/24 10:56 05/07/24 10:56 Labs: Laboratory Results - last 24 hr 05/07/24 05/07/24 10:56 11:55 WBC 9.00 RBC 4.87 Hgb 14.4 Hct 43.6 MCV 90 MCH 29.6 MCHC 33.0 RDW 13.5 Plt Count 370 MPV 9.0 Immature Gran % 0.2 Neutrophils % 63.6 Lymphocytes % 27.2 Monocytes % 6.7 Eosinophils % 1.7 Basophils % 0.6 Nucleated RBC % 0.0 Absolute Neutrophils 5.73 Absolute Lymphocytes 2.45 Absolute Monocytes 0.60 Absolute Eosinophils 0.15 Absolute Basophils 0.05 PT 11.1 INR 1.1 APTT 24.5 Sodium 140 Potassium 5.4 H Chloride 104 Carbon Dioxide 25.5 Anion Gap 10.5 BUN 102 H* Creatinine 2.5 H Est GFR (CKD-EPI 2020) 25.50 Glucose 50 L Calcium 11.0 H Magnesium 2.2 Total Bilirubin 0.4 AST 23 ALT 26 Alkaline Phosphatase 37 L Troponin I 68 64 NT-Pro-B Natriuret Pep 751 H Total Protein 8.3 H Albumin 4.1 Lipase 82 H Last Vital Signs Temp 36.4 C L 05/07/24 10:24 Pulse 85 05/07/24 12:49 Resp 20 05/07/24 12:49 BP 111/52 L 05/07/24 12:49 Pulse Ox 98 05/07/24 12:49 Time Spent Time spent with Patient: >75 minutes Time was spent: preparing to see the patient(eg.review tests), obtaining and/or reviewing separately otained hiistory, ordering medications,tests, procedures, referring, communicating with other health critical care technician, indepentently interpreting results, counseling the patient and care coordination
--- NOTE | 2024-05-07 13:47 | W.PC.ACHO ---
Registration Status: Primary Language: Preferred Language: ED Information & Data Chief Complaint Dizzy/Sync 05/07/24 12:13 Triage Note had apt today w/ dr reynolds, pt 05/07/24 10:24 reports he hasn't been feeling right, dizzy, and more confused. No chest pain , no SOB. has defib pace maker-[employer] [facility] / Surgical History (Last Updated 05/07/24 @ 10:14 by Kathryn Gasca MD) Complete heart block COPD (chronic obstructive pulmonary disease) Obstructive sleep apnea syndrome (~2016) DM neuro manif type II Chronic pain disorder (10/26/16) Lumbar back pain with radiculopathy affecting left lower extremity Cardiac resynchronization therapy defibrillator (LEASE OPERATOR-D) in place (~01/03/18) Sciatica Eczema History of bacteremia Cardiac murmur (02/08/11) Acute kidney injury superimposed on chronic kidney disease Adjustment disorder, unspecified (09/03/16) Acute gastroenteritis Encounter for physical therapy (04/16/14) s/p mechanical ventilation (04/16/14) s/p respiratory failure (04/16/14) Influenza with respiratory manifestations (04/16/14) (Last Reviewed 05/07/24 @ 09:48 by Kathryn Gasca MD) Biventricular ICD (implantable cardioverter-defibrillator) in place (01/03/18) History of cataract surgery Nuclear sclerotic cataract of left eye (~12/04/19) Cortical cataract of right eye (11/20/19) S/P TAVR (transcatheter aortic valve replacement) (~09/2017) Central line for TPN (03/31/14) Biopsy Skin of left sabianist (12/10/14) Most Recent Vital Signs Temperature 36.4 C L 05/07/24 10:24 Pulse 84 05/07/24 13:32 Pulse 93 H 05/07/24 13:32 Respiratory Rate 26 H 05/07/24 13:32 Respiratory Effort Short of Breath 05/07/24 11:10 Respiratory Depth Normal 05/07/24 11:10 Respiratory Pattern Normal 05/07/24 11:10 Blood Pressure 117/93 H 05/07/24 13:32 Blood Pressure Mean 97 05/07/24 13:32 Blood Pressure Position Supine 05/07/24 10:24 Pulse Oximetry 98 05/07/24 13:16 Pain Level 0 05/07/24 10:24 Allergies codeine Adverse Reaction (Intermediate, Verified 05/07/24 10:33) GI Upset does tolerated codeine cough syrup 06/2015 gabapentin Adverse Reaction (Intermediate, Verified 05/07/24 10:33) Dizziness/Lightheade prescribed before 04/2012 IV IV Catheter Type [Left Forearm Saline Lock ] IV Catheter Gauge [Left 18 Forearm] Diagnostics 05/07/24 05/07/24 Range/Units 11:55 10:56 WBC 9.00 (4.4-10.8) 10^3/uL RBC 4.87 (4.36-5.78) 10^6/uL Hgb 14.4 (13.5-17.5) g/dL Hct 43.6 (40.0-50.0) % MCV 90 (80-95) fL MCH 29.6 (27.0-33.0) pg MCHC 33.0 (32.0-36.0) % RDW 13.5 (11.8-14.1) % Plt Count 370 (130-400) 10^3/uL MPV 9.0 (8.0-11.0) fL Immature Gran % 0.2 % Neutrophils % 63.6 % Lymphocytes % 27.2 % Monocytes % 6.7 % Eosinophils % 1.7 % Basophils % 0.6 % Nucleated RBC % 0.0 (0.0-0.3) % Absolute Neutrophils 5.73 (1.2-6.7) 10^3/uL Absolute Lymphocytes 2.45 (1.2-3.4) 10^3/uL Absolute Monocytes 0.60 (0.1-0.8) 10^3/uL Absolute Eosinophils 0.15 (0.0-0.7) 10^3/uL Absolute Basophils 0.05 (0.0-0.2) 10^3/uL PT 11.1 (9.1-11.1) sec INR 1.1 (0.9-1.1) APTT 24.5 (20.6-30.2) sec Sodium 140 (136-145) mmol/L Potassium 5.4 H (3.5-5.1) mmol/L Chloride 104 (98-107) mmol/L Carbon Dioxide 25.5 (21.0-32.0) mmol/L Anion Gap 10.5 (3-11) mmol/L BUN 102 H* (7-18) mg/dL Creatinine 2.5 H (0.70-1.30) mg/dL Est GFR (CKD-EPI 2020) 25.50 (mL/min/1.73m2) Glucose 50 L (74-106) mg/dL Calcium 11.0 H (8.5-10.1) mg/dL Magnesium 2.2 mg/dL Total Bilirubin 0.4 (0.2-1.0) mg/dL AST 23 (15-37) U/L ALT 26 (16-63) U/L Alkaline Phosphatase 37 L (46-116) U/L Troponin I 64 68 (<or=76) ng/L NT-Pro-B Natriuret Pep 751 H (<300) pg/mL Total Protein 8.3 H (6.4-8.2) g/dL Albumin 4.1 (3.4-5.0) g/dL Lipase 82 H (<78) U/L Intake and Output - 24 Hour Total 05/07/24 10:20 thru 05/07/24 13:35 Intake Total 1000 Output Total 300 Balance 700 Weight 77.111 kg Intake: IV 1000 Output: Urine 300 Falls Risk Assessment History of Falls No History 05/07/24 11:10 Contributing Factors No Factors 05/07/24 11:10 Ambulatory Aids Independent 05/07/24 11:10 Tubes/Lines None 05/07/24 11:10 Gait Evaluation No gait disturbance 05/07/24 11:10 Cognition No cognitive impairment 05/07/24 11:10 Fall Total Score 0 05/07/24 11:10 Level of Risk Standard/Low Risk 05/07/24 11:10 Problems (Last Updated 05/07/24 @ 10:14 by Kathryn Gasca MD) Acute kidney injury (Acute) Chest pain of uncertain etiology (Acute) v v v v v v v v v Sending and/or Receiving Nurses: Please use comment section below to note any information pertinent to the patient hand-off not included above. Information / Comments: report recieved. Report received from: Serena Contreras, RN @ [phone]
[2024-05-07] MEDS: Sodium Zirconium Cyclosilicate 10 GM PKT PO ×2 (14:34→23:02)
[2024-05-07] MEDS: Enoxaparin 30 MG/0.3 ML SYR SC (15:49)
--- NOTE | 2024-05-07 17:42 | PGE_ITS ---
Date of Service Date of service: 05/09/24 Time of Service: 17:34 Objective Last Vital Signs Temp 36.3 C L 05/07/24 14:08 Pulse 87 05/07/24 15:09 Resp 18 05/07/24 14:08 BP 116/57 L 05/07/24 15:09 Pulse Ox 98 05/07/24 14:08 Laboratory Results - last 24 hr 05/07/24 05/07/24 05/07/24 10:56 11:55 19:00 WBC 9.00 RBC 4.87 Hgb 14.4 Hct 43.6 MCV 90 MCH 29.6 MCHC 33.0 RDW 13.5 Plt Count 370 MPV 9.0 Immature Gran % 0.2 Neutrophils % 63.6 Lymphocytes % 27.2 Monocytes % 6.7 Eosinophils % 1.7 Basophils % 0.6 Nucleated RBC % 0.0 Absolute Neutrophils 5.73 Absolute Lymphocytes 2.45 Absolute Monocytes 0.60 Absolute Eosinophils 0.15 Absolute Basophils 0.05 PT 11.1 INR 1.1 APTT 24.5 Sodium 140 Potassium 5.4 H Chloride 104 Carbon Dioxide 25.5 Anion Gap 10.5 BUN 102 H* Creatinine 2.5 H Est GFR (CKD-EPI 2020) 25.50 Glucose 50 L Calcium 11.0 H Magnesium 2.2 Total Bilirubin 0.4 AST 23 ALT 26 Alkaline Phosphatase 37 L Troponin I 68 64 NT-Pro-B Natriuret Pep 751 H Total Protein 8.3 H Albumin 4.1 Lipase 82 H Vancomycin Trough Cancelled Time Spent with Patient Time Spent with Patient: 25-34 minutes Time was spent: preparing to see the patient(eg.review tests), obtaining and/or reviewing separately otained hiistory, ordering medications,tests, procedures, referring, communicating with other health home health care provider, indepentently interpreting results, counseling the patient and care coordination
[2024-05-07 18:45] LABS: Anion Gap 9.1 mmol/L (3-11); CO2 23.9 mmol/L (21.0-32.0); CREATININE 2.4 mg/dL (0.70-1.30); Calcium 9.9 mg/dL (8.5-10.1); Chloride 106 mmol/L (98-107); Estimated GFR 26.78 (mL/min/1.73m2); Glucose 147 mg/dL (74-106); Sodium 139 mmol/L (136-145)
[2024-05-07 18:47] LABS: BUN 92 mg/dL (7-18)
[2024-05-07] MEDS: oxyCODONE 10 MG TAB PO (20:33)
[2024-05-07] MEDS: Mirtazapine 15 MG TAB PO (20:33)
[2024-05-07] MEDS: Atorvastatin 40 MG TAB PO (20:33)
[2024-05-07] MEDS: Carvedilol 12.5 MG TAB 25 MG PO (20:33)
[2024-05-07] MEDS: Acetaminophen 325 MG TAB PO (20:33)
[2024-05-07] MEDS: Cephalexin 500 MG CAP PO (20:33)
[2024-05-07] MEDS: Budesonide/Formoterol 80/4.5 6.9 GM 60 PUFF INH IH (23:01)
[2024-05-07] MEDS: Lactated Ringers 1,000 ML 50 ML IV (23:06)
[2024-05-08] VITALS (8 sets, daily range): BP systolic 100–132; BP diastolic 58–78; PULSE 73–90; RESP 16–18; TEMP 36.3–36.8; O2SAT 93–99
[2024-05-08] MEDS: amLODIPine 10 MG TAB PO (08:02)
[2024-05-08] MEDS: Carvedilol 12.5 MG TAB 25 MG PO ×2 (08:02→19:47)
[2024-05-08] MEDS: Cephalexin 500 MG CAP PO ×2 (08:02→19:48)
[2024-05-08] MEDS: Aspirin E.C. 81 MG TABEC PO (08:02)
[2024-05-08] MEDS: Polyethylene Glycol 3350 17 GM PACKET PO (08:02)
[2024-05-08] MEDS: Clopidogrel 75 MG TAB PO (08:02)
[2024-05-08 08:04] LABS: ALT 18 U/L (16-63); AST 21 U/L (15-37); Albumin 3.4 g/dL (3.4-5.0); Alkaline Phosphatase 28 U/L (46-116); Anion Gap 8.2 mmol/L (3-11); BUN 75 mg/dL (7-18); Bilirubin, Total 0.4 mg/dL (0.2-1.0); CO2 26.8 mmol/L (21.0-32.0); CREATININE 1.9 mg/dL (0.70-1.30); Calcium 9.8 mg/dL (8.5-10.1); Chloride 107 mmol/L (98-107); Estimated GFR 35.44 (mL/min/1.73m2); Glucose 79 mg/dL (74-106); Magnesium 1.9 mg/dL; Potassium 4.3 mmol/L (3.5-5.1); Sodium 142 mmol/L (136-145)
[2024-05-08] MEDS: Normal Saline Flush 10 ML SYR IVP ×2 (08:13→19:53)
[2024-05-08] MEDS: Budesonide/Formoterol 80/4.5 6.9 GM 60 PUFF INH IH ×2 (08:16→19:49)
[2024-05-08] MEDS: Tiotropium Bromide-Respimat 10 PUFF INH 2 PUFF IH (08:17)
--- NOTE | 2024-05-08 09:29 | INITIAL_ITS ---
Date of service: 05/08/24 Time of Service: 09:30 Care Management Initial Assmt Initial Assessment Reason for Hospitalization: chest pain Functional Status/Living Situation Patient Presentation: Kam was sitting up in bed when CM met with him. He was pleasant in manner and engaged easily with CM. Kam lives in an apartment in [place]. He has no children and no family in the area. He explained that he moved to [place] 30 years ago from [place] to care for his parents and the rest of the family is still there. 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 He is independent at baseline and does not receive any services. Kam uses a walker on occasion for ambulatory assistance. Kam was admitted with hyperkalemia and DONTAE. He admitted to that he is really concerned about his kidneys as both of his parents had significant kidney disease. Kam's baseline creatinine is about 1.6 and it was 2.5 on admission. Fortunately by this morning it was down to 1.9 and his potassium was back to normal at 4.3. Town of Residence: [place] Resides with: Alone Significant Other/Family: Out of area (family in [place]) Employment Status: Retired Instrumental Activities of Daily Living (ADLs): Independent Medications Medication Management: No Issues/Barriers identified Advance Directives Advance Directives: Do you have an Advance Directive: Y 06/29/14 09:47 AD On File at [facility]: Y 05/05/18 10:41 Date Asked 05/07/24 05/07/24 10:32 AD Date Reviewed 04/17/24 04/21/24 09:42 COLST On File at [facility] COLST Date Scanned Code Status Resuscitation Status DNR Portal Pt does not currently have a portal and education provided: Yes Insurance Coverage/Financial Issues Insurance: [employer] Medicare Replacement Care Team Visit Care Team Role Provider Type Barb Dugan APRN MD [facility] STAFF PHYSICIAN Tien Galicia DO Primary Care Provider OSTEOPATHIC DOCTOR Krista Au RDN, [facility][NOTE 3] Other Providers [facility] REDEVELOPMENT SPECIALIST Sekou Domínguez RDN Other Providers [facility] REDEVELOPMENT SPECIALIST MANUEL Deutsch Emergency Provider PHYSICIANS FIELD SERVICE SPECIALIST Tobias Rubin MD Admit Provider [facility] STAFF PHYSICIAN Attending Provider Discharge Potential Discharge Needs: PCP F/U Appt Anticipated Barriers to Discharge: None Identified Patient/Family Education Needs: Review discharge instructions, discuss Ask Me Three Transportation: Private vehicle Plan: Anticipate Kam will be discharged home with no new services. He will follow up with his community providers and plan of care and transport via RCT vs private vehicle. CM will follow and continue to assess fordischarge needs. Social Determinants of Health Screening Social Determinants of Health last assessed: 05/08/24 Will the Patient Participate in the Screening?: Yes Do you worry about having a steady place to live?: no Problems where you live: no known problems In the past 12 months, have you had to go without electric, gas, oil or water in your home?: no Have you or anyone in your house had to go without enough food to eat?: no Has lack of transportation kept you from medical appointments or from doing things needed for daily living?: no Has anyone in your life made you feel unsafe or unsupported?: no How hard is it for you to pay for the very basics like food, housing, medical care, and heating? Would you say it is:: Not hard at all Do you want help finding or keeping work or a job?: I do not need or want help If for any reason you need help with day-to-day activities such as bathing, preparing meals, shopping, managing finances, etc., do you get the help you need?: I don?t need any help How often do you feel lonely or isolated from those around you?: Never Do you speak a language other than [place] at home?: No Does the patient want assistance with any of the above?: No Social Determinants of Health Comments([facility] Details): may need medical transportation help PFSH All Active Problems (Updated 05/07/24 @ 16:05 by Barb Dugan APRN) Hyperkalemia (Acute) On deep vein thrombosis (DVT) prophylaxis (Acute) Acute kidney injury (Acute) Chest pain of uncertain etiology (Acute) Heart failure with reduced ejection fraction (Acute) Insomnia (Acute) Sinusitis, acute (Acute) Pulmonary edema (Acute) Acute kidney injury (Acute) Cardiomyopathy (Acute) Vitamin B12 deficiency (Acute) Vitamin D deficiency (Acute) Fatigue (Acute) Other secondary cataract, bilateral (Acute) Constipation due to pain medication (Acute) ASCVD (arteriosclerotic cardiovascular disease) (Acute) Toe deformity (Acute) Neuropathy (Acute) Nail dystrophy (Acute) Pulmonary nodules (Acute) Personal history of nicotine dependence (Acute) History of transcatheter aortic valve replacement (TAVR) (Acute) Diabetes mellitus type II, controlled (Chronic) Advance directive on file (Acute) CHF (congestive heart failure) (Chronic) Chest pain (Acute) Sciatica of left side (Acute 03/26/16) Dermatitis (Acute 02/08/11) Chronic kidney disease (CKD) stage G3a/A1, moderately decreased glomerular filtration rate (GFR) between 45-59 mL/min/1.73 square meter and albuminuria creatinine ratio less than 30 mg/g (Acute 05/24/17) Biventricular ICD (implantable cardioverter-defibrillator) in place (Acute) Diverticulosis (Acute) 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 Left L3 radiculopathy: Pain clinic injec 09/2016. Left lumbar radiculopathy (Chronic 10/26/16) s/p Left L3 steroid inj 09/2016 Dr Olsen Hypertriglyceridemia (Chronic 12/31/14) Distal paresthesia (Chronic 02/16/14) nocturnal warm feelings both feet began about 11/2013, ?early peripheral neuropathy Chronic obstructive pulmonary disease (Chronic 01/21/17) Dr Wright 12/201601/02/19 F/U with Dr Ibrahim Neuropathy, lateral femoral cutaneous nerve (Chronic) Diabetes mellitus, type II (Chronic) a. poor control b. recent self hydration with two 2 L bottles of gingerale Hypertension (Chronic) Hyperlipidemia (Chronic) Obesity (Chronic) Peripheral neuropathy (Chronic) Weakness (Chronic 04/16/14) Medical History (Updated 05/07/24 @ 16:05 by Barb [place], HEAVY EQUIPMENT SUPERVISOR) Complete heart block COPD (chronic obstructive pulmonary disease) Obstructive sleep apnea syndrome (~2017) DM neuro manif type II Chronic pain disorder (10/26/16) multiple sources; s/p Chronic Pain workshop [facility], s/p PT; s/p [place] workshop Lumbar back pain with radiculopathy affecting left lower extremity Cardiac resynchronization therapy defibrillator (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 denies this Adjustment disorder, unspecified (09/03/16) Acute gastroenteritis Encounter for physical therapy (04/16/14) s/p mechanical ventilation (04/16/14) s/p respiratory failure (04/16/14) a. secondary to influenza B and ARDS, requiring mechanical ventilation for four days, then extubated, reintubated and required another four days of mechanical ventilation, now on room air Influenza with respiratory manifestations (04/16/14) a. 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 Kremit Edwards Final pathologic diagnosis-Sebottheic keratosis Family History Mother Stroke Father , CHF at age 88. CHF (congestive heart failure) Fluid overload Hypertension Social History Smoking/Tobacco Use Status: Current-Occasional Tobacco Type: cigarettes and cigars Tobacco: How many years used: 60 Quit status: considering quitting Counseling given: counseling >3 minutes Smoking risk assessment performed?: Yes Alcohol Intake: former Drug use: Never Substance use type: does not use Caregiver/Support person: No Household members: none Housing: apartment Number of Children: 0 Communication Needs: Corrective Lenses Education Level: high school Do you need help understanding health information?: Rarely Pets and animals: Yes Pets and animals: cat(s) Current gender identity: male What is your relationship status?: refused to answer How often do you talk on the phone with friends or family?: twice per week How often do you get together with friends or relatives?: once per week How often do you attend mu-ism or sabianist services?: decline to answer Do you belong to any clubs or organized social groups?: no Panel score (0-1 are the most socially isolated patients): 1 What type of physical activity do you participate in: bicycling and other Details: stationary bike Duration: 15-30 minutes/day Frequency: 3-4 times per week Rama/Zoroastrian: Episcopal Special rama needs: No Agree to transfusion: Yes Seatbelt use: always Helmet use: No Drive intox or ride w/intox residential recycle driver: No Water heater temp set <120 deg: Yes Working smoke detector in home: Yes Fire extinguisher in home: Yes Carbon monox detector in home: Yes Do you feel safe at home: Yes Do you feel safe in your relationship?: Yes Additional Social history: Exposure to- asbestos, chemicals an toxins. Readmission Date of First Admission Date of 1st Admission: 04/16/24 Date of this Admission Date of Admission: 05/07/24
--- NOTE | 2024-05-08 10:12 | W.PM.PROGNOT ---
Date of Service Date of service: 05/08/24 Time of Service: 13:51 Assessment and Plan Assessment and plan (1) Acute kidney injury superimposed on chronic kidney disease: Assessment and plan: Hx of NSTEMI with transient increase in Cr this month Home on chronic furosemide dosing and reduced oral fluid intake Still holding furosemide Cr 2.5 on presentation from baseline 1.3- now 1.9 Continue IVF - last LVEF 40%no exacerbation of HFrHF BMPin am Conitnue to avoid nephrotoxic medicines if possible - renal dosing (2) Hyperkalemia: Status: Acute Assessment and plan: Lokelma On admission - now resolved (3) Heart failure with reduced ejection fraction: Status: Acute Assessment and plan: Ongoing: Hold lisinopril Continue home dose Coreg (4) Cardiomyopathy: Status: Acute Assessment and plan: D/c telemetry Continue home meds (5) ASCVD (arteriosclerotic cardiovascular disease): Status: Acute Assessment and plan: On home Lipitor Gemfibrozil on hold CrCl < 30ml/minute on admit - slightly improved today (6) COPD (chronic obstructive pulmonary disease): Assessment and plan: No exacerbation- Continue home meds regimen Continue to monitor (7) Chronic pain disorder: Assessment and plan: continue home dose oxycodone (8) Diabetes mellitus type II, controlled: Status: Chronic Assessment and plan: Continue fingersticks AC and HS with SSI- adjust scale as needed Ongoing: hold oral antihyperglycemic drugs while inpatient adjust dosing as per renal function prior to d/c VS PCP management As noted on admission , ideal dose of glipizide --as per discussion with pharmacy : 2.5mg daily d/t eGFr < 50 ml/min- on hold (9) On deep vein thrombosis (DVT) prophylaxis: Status: Acute Assessment and plan: Continue renally adjusted Lovenox SC Discussed with Dr. Rubin Subjective Subjective Patient reports: no new complaints, feels better, tolerating liquids well, tolerating a regular diet, voiding w/o difficulty and afebrile; denies diarrhea, nausea, vomiting or shortness of breath Exam Narrative Exam Narrative: Constitutional HENMT: Facial structures with normal appearance Neuro:alert and oriented X4 , no neurological focal deficit Resp: Unlabored breathing, clear lung bilaterally with decreased bases Cardio: regular rhythm, S1, S2, no murmur, positive pulses to all 4 ext. GI: Abdomen is not distended, soft and non tender, bowel sounds are present : Negative CVA tenderness Back/spine/Pelvis: No back tenderness, normal alignment Integumentary: No lesions or rash on exposed skin Extremities: strength 5/5 to bilateral lower and upper extremities Psych: RASS 0, congruent mood and normal affect. Objective Last Vital Signs Temp 36.8 C 05/08/24 08:08 Pulse 80 05/08/24 08:08 Resp 16 05/08/24 08:08 BP 132/65 05/08/24 08:08 Pulse Ox 98 05/08/24 08:16 Laboratory Results - last 24 hr 05/07/24 05/07/24 05/07/24 10:56 11:55 18:10 WBC 9.00 RBC 4.87 Hgb 14.4 Hct 43.6 MCV 90 MCH 29.6 MCHC 33.0 RDW 13.5 Plt Count 370 MPV 9.0 Immature Gran % 0.2 Neutrophils % 63.6 Lymphocytes % 27.2 Monocytes % 6.7 Eosinophils % 1.7 Basophils % 0.6 Nucleated RBC % 0.0 Absolute Neutrophils 5.73 Absolute Lymphocytes 2.45 Absolute Monocytes 0.60 Absolute Eosinophils 0.15 Absolute Basophils 0.05 PT 11.1 INR 1.1 APTT 24.5 Sodium 140 139 Potassium 5.4 H 5.0 Chloride 104 106 Carbon Dioxide 25.5 23.9 Anion Gap 10.5 9.1 BUN 102 H* 92 H* Creatinine 2.5 H 2.4 H Est GFR (CKD-EPI 2020) 25.50 26.78 Glucose 50 L 147 H Calcium 11.0 H 9.9 Magnesium 2.2 Total Bilirubin 0.4 AST 23 ALT 26 Alkaline Phosphatase 37 L Troponin I 68 64 NT-Pro-B Natriuret Pep 751 H Total Protein 8.3 H Albumin 4.1 Lipase 82 H Vancomycin Trough 05/07/24 05/08/24 19:00 06:48 WBC RBC Hgb Hct MCV MCH MCHC RDW Plt Count MPV Immature Gran % Neutrophils % Lymphocytes % Monocytes % Eosinophils % Basophils % Nucleated RBC % Absolute Neutrophils Absolute Lymphocytes Absolute Monocytes Absolute Eosinophils Absolute Basophils PT INR APTT Sodium 142 Potassium 4.3 Chloride 107 Carbon Dioxide 26.8 Anion Gap 8.2 BUN 75 H Creatinine 1.9 H Est GFR (CKD-EPI 2020) 35.44 Glucose 79 Calcium 9.8 Magnesium 1.9 Total Bilirubin 0.4 AST 21 ALT 18 Alkaline Phosphatase 28 L Troponin I NT-Pro-B Natriuret Pep Total Protein 7.0 Albumin 3.4 Lipase Vancomycin Trough Cancelled Time Spent with Patient Time Spent with Patient: >50 minutes Time was spent: preparing to see the patient(eg.review tests), obtaining and/or reviewing separately otained hiistory, ordering medications,tests, procedures, referring, communicating with other health group care worker, indepentently interpreting results, counseling the patient and care coordination
[2024-05-08] MEDS: Fluticasone NASAL SPRAY 16 GM BTL NS (10:31)
[2024-05-08] MEDS: Lactated Ringers 1,000 ML 50 ML IV (10:37)
[2024-05-08] MEDS: Insulin Aspart 300 UNITS/3 ML PEN SC ×2 (12:04→17:21)
--- NOTE | 2024-05-08 13:19 | CHAPLAIN ---
Kam was resting in bed when I visited. He said he's waiting for test results and to speak with the hospitalist. His family is in [place], but he's been in touch with them. A neighbor is taking care of his pet. I explained my role and offered support.
--- NOTE | 2024-05-08 15:46 | PT.INIE ---
PT Notes Visit Reasons: DONTAE, hyperkalemia Physical Therapy Inpatient Evaluation Date: 05/08/2024 Referring Doctor: Barb Dugan NP PT Orders: PT CONSULT: Safety Consult for D/C Precautions: Fall. Standard. Activity as tolerated. ICD in situ. Patient Profile/Admitting Diagnosis: Kam is a 79-year-old male admitted to the ED on 05/07/2024 with chief complaints of central chest pain radiating to the left arm with a recent admission previously for a cardiac problem. Patient is admitted for management of acute on chronic kidney injury, hyperkalemia, HFrEF with EF of 40% for most recent testing, cardiomyopathy, chronic pain disorder and diabetes mellitus type 2. PMHX: All Active Problems (Updated 05/07/24 @ 16:05 by Barb Dugan APRN) Hyperkalemia (Acute) On deep vein thrombosis (DVT) prophylaxis (Acute) Acute kidney injury (Acute) Chest pain of uncertain etiology (Acute) Heart failure with reduced ejection fraction (Acute) Insomnia (Acute) Sinusitis, acute (Acute) Pulmonary edema (Acute) Acute kidney injury (Acute) Cardiomyopathy (Acute) Vitamin B12 deficiency (Acute) Vitamin D deficiency (Acute) Fatigue (Acute) Other secondary cataract, bilateral (Acute) Constipation due to pain medication (Acute) ASCVD (arteriosclerotic cardiovascular disease) (Acute) Toe deformity (Acute) Neuropathy (Acute) Nail dystrophy (Acute) Pulmonary nodules (Acute) Personal history of nicotine dependence (Acute) History of transcatheter aortic valve replacement (TAVR) (Acute) Diabetes mellitus type II, controlled (Chronic) Advance directive on file (Acute) CHF (congestive heart failure) (Chronic) Chest pain (Acute) Sciatica of left side (Acute 03/26/16) Dermatitis (Acute 02/08/11) Chronic kidney disease (CKD) stage G3a/A1, moderately decreased glomerular filtration rate (GFR) between 45-59 mL/min/1.73 square meter and albuminuria creatinine ratio less than 30 mg/g (Acute 05/24/17) Biventricular ICD (implantable cardioverter-defibrillator) in place (Acute) Diverticulosis (Acute) termination clerk (current) use of opiate analgesic (Acute) Sleep apnea (Chronic 12/28/15) C-PAPSciatica of left side (Chronic 03/26/16) Primary osteoarthritis involving multiple joints (Chronic 01/04/16 mild DJD on x-ray L hip and L knee Pain in lower limb (Chronic 02/18/89) CHRONIC FOOT PAIN; CV ORTHOPEDIST PLATE RIGHT HEEL; SS DISABILITY 05/2003; rare Percocet use (avoid NSAID due to Ulcer history) Leg pain, left (Chronic 01/17/16) began 01/09/16 L knee, radiated thigh to buttock; ER 01/13 and 01/16; Left lat fem cut nerve injection 05/30/16; ? Left L3 radiculopathy: Pain clinic injec 09/2016. Left lumbar radiculopathy (Chronic 10/26/16) s/p Left L3 steroid inj 09/2016 Dr Olsen Hypertriglyceridemia (Chronic 12/31/14) Distal paresthesia (Chronic 02/16/14) nocturnal warm feelings both feet began about 11/2013, ?early peripheral neuropathy Chronic obstructive pulmonary disease (Chronic 01/21/17) Dr Wright 12/201601/02/19 F/U with Dr Ibrahim Neuropathy, lateral femoral cutaneous nerve (Chronic) Diabetes mellitus, type II (Chronic) a. poor control b. recent self hydration with two 2 L bottles of gingeraleHypertension (Chronic) Hyperlipidemia (Chronic) Obesity (Chronic) Peripheral neuropathy (Chronic) Weakness (Chronic 04/16/14) Medical History (Updated 05/07/24 @ 16:05 by Barb Dugna APRN) Complete heart block COPD (chronic obstructive pulmonary disease) Obstructive sleep apnea syndrome (~2016) DM neuro manif type II Chronic pain disorder (10/26/16) multiple sources; s/p Chronic Pain workshop [facility], s/p PT; s/p [place] workshop Lumbar back pain with radiculopathy affecting left lower extremity Cardiac resynchronization therapy defibrillator (WATER MECHANIC-D) in place (~01/03/18) Sciatica Eczema History of bacteremia Cardiac murmur (02/08/11) Acute kidney injury superimposed on chronic kidney disease pt. denies this Adjustment disorder, unspecified (09/03/16) Acute gastroenteritis Encounter for physical therapy (04/16/14) s/p mechanical ventilation (04/16/14) s/p respiratory failure (04/16/14) a. secondary to influenza B and ARDS, requiring mechanical ventilation for four days, then extubated, reintubated and required another four days of mechanical ventilation, now on room air Influenza with respiratory manifestations (04/16/14) a. TYPE B INFLUENZA Surgical History Biventricular ICD (implantable cardioverter-defibrillator) in place (01/03/18) [employer] WATER MECHANIC-D PACEMAKER DEPENDENT - EXQUISITELY SENSITIVE TO TESTING History of cataract surgery Nuclear sclerotic cataract of left eye (~12/04/19) Cortical cataract of right eye (11/20/19) S/P TAVR (transcatheter aortic valve replacement) (~09/2017) Central line for TPN (03/31/14) with pneumonia Biopsy Skin of left yazidi (12/10/14) Dr. Kermit Edwards Final pathologic diagnosis-Sebottheic keratosis Equipment Owned/DME: FWW, [facility] Subjective: Feels much better but still cautious about overdoing everything. Agreeable to walking as far as he feels comfortable today. Hopeful about ging home as soon as cleared by MD. Added that he has some baseline minimal pain in chest becasue f his cardiac history. Objective: General Observation: Resting in bed. IV through L UE. Mental Status: Alert and oriented x 4 Pain: Patient comp,ains of minimal chest pain way lower than it was yesterday. ROM: Right Upper Extremity: Shoulder Flexion WFL. Shoulder abduction WFL. Elbow flexion WFL. Wrist flexion WFL. Functional opening and closing of hand WFL. Left Upper Extremity: Shoulder Flexion WFL. Shoulder abduction WFL. Elbow flexion WFL. Wrist flexion WFL. Functional opening and closing of hand WFL. Right Lower Extremity: Hip flexion WFL. Hip abduction WFL. Knee flexion WFL. Ankle dorsiflexion WFL. Ankle plantarflexion WFL. Left Lower Extremity: Hip flexion WFL. Hip abduction WFL. Knee flexion WFL. Ankle dorsiflexion WFL. Ankle plantarflexion WFL. Strength: Right Upper Extremity: Shoulder flexors 4-/5. Shoulder abductors 4-/5. Elbow flexors 4-/5. Elbow extensors 4-/5. Environmental Protection Officer strong. Left Upper Extremity: Shoulder flexors 4-/5. Shoulder abductors 4-/5. Elbow flexors 4-/5. Elbow extensors 4-/5. Environmental Protection Officer strong. Right Lower Extremity: Hip flexors 4-/5. Hip abductors 4-/5. Knee flexors 4/5. Knee extensors 4-/5. Ankle dorsiflexors 4-/5. Ankle plantarflexors 4-/5. Left Lower Extremity: Hip flexors 4-/5. Hip abductors 4-/5. Knee flexors 4/5. Knee extensors 4-/5. Ankle dorsiflexors 4-/5. Ankle plantarflexors 4-/5. Bed Mobility/Transfers: Minimal cueing provided for use of B hands as needed for support, movement sequence, AD management, and posture to reduce fall risk and minimize pain report supine<>sit: stand by assist sit<>stand: stand by assist with FWW stand->sit: stand by assist with FWW Gait: Tolerated short distance ambulation of up to 50 feet using front wheeled walker with small reciprocal step through gait pattern requiring contact-guard assist and minimal verbal cueing for walker management, safe directional change, and posture. No report of headache and lightheadedness received. No chest pain exacerbation during and after activity. Balance: Static Sitting: Normal Dynamic Sitting: Normal Static Standing: Fair Dynamic Standing: Fair Mobility Limitations Standardized Measure [facility] AM-PAC 6 clicks Basic Mobility Inpatient Short Form: Raw Score: 21 CMS Score: 29% deficit Informed Consent/Education: Patient instructed in purpose of PT consult and plan of care. Agreeable to proceed with established PT POC to achieve personal goals. Assessment: Chest pain has subsided with no symptom exacerbation reported nor observed throughout today's session. Patient is agreeable to HH PT coming in once he is discharged from this hospital. ACtivity tolerance has improved with patient being able to negotiate in-room ambulation with FWW. Kam is a 79-year-old male admitted to the ED on 05/07/2024 with chief complaints of central chest pain radiating to the left arm with a recent admission previously for a cardiac problem. Patient is admitted for management of acute on chronic kidney injury, hyperkalemia, HFrEF with EF of 40% for most recent testing, cardiomyopathy, chronic pain disorder and diabetes mellitus type 2. Kam demonstrates the following impairment level findings: 1. Limited ability to safely negotiate community distances without adequate rests 2. Limited ability to bend down and carry heavy onjects 3. Shortness of breath and fatigue Impairments are contributing to the following functional limitations: 1. Unable to safely ambulate community distances 2. Unable to perform below hip activities chores without getting short of breath 3. Unable to manage a flight of stairs independently without fatigue and shortness of breath 4. Increased risk for falls [place] [address] moderate complexity based on the following: History: 79 year old male with complicated medical history admitted for medical management of right hand cellulitis and MSSA bacteremia Examination: Underlying impairments functional limitations as noted above resulting AMPAC score of 23 and an equivalent CMS score of 11.20% deficit Presentation: Evolving Decision Makin moderate complexity Goals: Goals X1 week 1. Supine-Sit independent 2. Sit-Supine independent 3. Sit-Stand independent with FWW 4. Stand-Sit independent with FWW 5. Bed-Chair independent with FWW 6. Chair-Bed independent with FWW 7. Independent gait on level surface with use of least restrictive device for at least 150 feet without report of pain nor dyspnea 8. Independent stair negotiation while holding onto bilateral rails for at least 10 steps without report of pain nor dyspnea 9. Independent with home exercise program 10. Good static and dynamic standing balance/tolerance Plan of Care/Treatment: Patient will highly benefit from skilled physical therapy services including functional mobility training, bed mobility/transfer training, gait and balance training, therapeutic exercises, therapeutic activity, caregiver/staff/family education and training 1x/day, 7 days/week x 1 week. Plan of care has been reviewed with the SUPPLY CHAIN MANAGER providing the service under Physical Therapy direction. Initiate Physical Therapy intervention for strengthening, bed mobility, transfers, gait, stairs, balance training, use of assistive device. DISCHARGE RECOMMENDATIONS: Patient will benefit from home health PT services in order to progress mobility level using least restrictive assistive ambulatory device, assess home safety, identify additional equipment needs, and establish a functional maintenance program that will increase ability of patient to remain at home. TREATMENT CODE/TIME: 91355 x 20 minutes for 1 unit (15: 46?16: 04). Thank you for the opportunity to participate in the care of this patient. Bridget Cochran PT, DPT, CLT [facility] [place], [place] Precautions: [] Patient Profile/Admitting Diagnosis: [] PMHX: [] Social History/Home Situation: [] Current Functional Limitations: [] Equipment Owned/DME: [] Subjective: [] Objective: [] General Observation: [] Mental Status: [] Pain: [] Vital Signs: [] ROM: Right Upper Extremity: [] Left Upper Extremity: [] Right Lower Extremity: [] Left Lower Extremity: [] Strength: Right Upper Extremity: [] Left Upper Extremity: [] Right Lower Extremity: [] Left Lower Extremity: [] Sensation: [] Bed Mobility/Transfers: [] Gait: [] Balance: [] Static Sitting: [] Dynamic Sitting: [] Static Standing: [] Dynamic Standing: [] Special Tests: Mobility Limitations Standardized Measure [facility] AM-PAC 6 clicks Basic Mobility Inpatient Short Form: Raw Score: [] Standardized Score: [] CMS Score: [] CMS Modifier: [] Informed Consent/Education: Patient instructed in purpose of PT consult and plan of care. Assessment: Patient is a [] year old [] referred to physical therapy services with the diagnosis of []. Patient presents with clinical signs and symptoms consistent with [], as demonstrated by the following impairment level findings: []. Impairments are contributing to the following functional limitations: AMPAC score. Patient is assessed as a [] Low 84238 [] Moderate 85151 [] High 39689 complexity based on the following: History: [] Examination: [] Presentation: [] Decision Making: [] Goals: Goals X1 week 1. Supine-Sit [] 2. Sit-Supine [] 3. Sit-Stand [] 4. Stand-Sit [] 5. Bed-Chair [] 6. Chair-Bed [] 7. Gait [] 8. Stairs [] 9. Independent with home exercise program [] 10. Balance [] Plan of Care/Treatment Plan: 1-2x/day, 7 days/week x 1 week. Plan of care has been reviewed with the SUPPLY CHAIN MANAGER providing the service under Physical Therapy direction. Initiate Physical Therapy intervention for strengthening, bed mobility, transfers, gait, stairs, balance training, use of assistive device. DISCHARGE RECOMMENDATIONS: [] TREATMENT CODE/TIME: []
[2024-05-08] MEDS: Enoxaparin 30 MG/0.3 ML SYR SC (16:15)
[2024-05-08] MEDS: Docusate Sodium 100 MG CAP PO (18:44)
[2024-05-08] MEDS: Mirtazapine 15 MG TAB PO (19:47)
[2024-05-08] MEDS: Atorvastatin 40 MG TAB PO (19:47)
[2024-05-08] MEDS: oxyCODONE 10 MG TAB PO (19:52)
[2024-05-09] VITALS (13 sets, daily range): BP systolic 113–159; BP diastolic 60–100; PULSE 72–84; RESP 18–19; TEMP 36–36.7; O2SAT 90–99
[2024-05-09] MEDS: Lactated Ringers 1,000 ML 50 ML IV (06:16)
[2024-05-09 07:19] LABS: Anion Gap 8.2 mmol/L (3-11); BUN 51 mg/dL (7-18); CO2 26.8 mmol/L (21.0-32.0); CREATININE 1.5 mg/dL (0.70-1.30); Chloride 108 mmol/L (98-107); Estimated GFR 47.06 (mL/min/1.73m2); Glucose 122 mg/dL (74-106); Potassium 4.3 mmol/L (3.5-5.1); Sodium 143 mmol/L (136-145)
[2024-05-09] MEDS: Carvedilol 12.5 MG TAB 25 MG PO ×2 (07:46→19:42)
[2024-05-09] MEDS: Fluticasone NASAL SPRAY 16 GM BTL NS (07:46)
[2024-05-09] MEDS: amLODIPine 10 MG TAB PO (07:47)
[2024-05-09] MEDS: Clopidogrel 75 MG TAB PO (07:47)
[2024-05-09] MEDS: Cephalexin 500 MG CAP PO ×2 (07:47→19:42)
[2024-05-09] MEDS: Aspirin E.C. 81 MG TABEC PO (07:47)
[2024-05-09] MEDS: Normal Saline Flush 10 ML SYR IVP ×2 (07:48→19:43)
[2024-05-09] MEDS: Budesonide/Formoterol 80/4.5 6.9 GM 60 PUFF INH IH ×2 (08:04→20:42)
[2024-05-09] MEDS: Tiotropium Bromide-Respimat 10 PUFF INH 2 PUFF IH (08:04)
[2024-05-09 10:06] LABS: Abs Immature Grans 0.01 10^3/uL (0.0-0.06); Absolute Basophil Count 0.05 10^3/uL (0.0-0.2); Absolute Eosinophil Count 0.16 10^3/uL (0.0-0.7); Absolute Lymphocyte Count 2.12 10^3/uL (1.2-3.4); Absolute Monocyte Count 0.54 10^3/uL (0.1-0.8); Absolute Neutrophil Count 3.06 10^3/uL (1.2-6.7); Basophils % 0.8 %; Eosinophils % 2.7 %; HCT 38.2 % (40.0-50.0); HGB 12.6 g/dL (13.5-17.5); Immature Grans % 0.2 %; Lymphocytes % 35.7 %; MCH 30.1 pg (27.0-33.0); MCV 91 fL (80-95); MPV 9.4 fL (8.0-11.0); Monocytes % 9.1 %; Neutrophils % 51.5 %; Platelet Count 228 10^3/uL (130-400); RBC 4.18 10^6/uL (4.36-5.78); RDW 13.5 % (11.8-14.1); RDW-SD 45.1 fL; WBC 5.94 10^3/uL (4.4-10.8)
--- NOTE | 2024-05-09 10:24 | W.PM.PROGNOT ---
Date of Service Date of service: 05/09/24 Time of Service: 10:25 Assessment and Plan Assessment and plan (1) Chest pain: Status: Acute Assessment and plan: left upper sternum radiation to left shoulder and neck with nausea vomiting and dizziness with change in position and ambulation Subsiding with sitting and resolution of other symptoms Non-focal EKG STAT- Similar to previous Troponin STAT- negative (2) Nausea & vomiting: Status: Resolved Assessment and plan: As above PT consult -Left turn of the head induced N/V -Most likely vertigo VS BPPV -Ongoing PT for Melany maneuvers -Meclizine -Comapize PRN No focal deficits - Will hold off head CT at this time (3) Acute kidney injury superimposed on chronic kidney disease: Assessment and plan: Admission this month for NSTEMI with transient increase in Cr this month Home on chronic furosemide dosing increase to 40 mg at PCP and reduced oral fluid intake Resume furosemide lower dosing in AM Cr 2.5 on presentation now 1.5 Stop IVF - encourage PO hydration last LVEF 40%no exacerbation of HFrHF BMP in am Conitnue to avoid nephrotoxic medicines if possible - renal dosing (4) Hyperkalemia: Status: Acute Assessment and plan: Resolved Treated with Lokelma (5) Constipation: Status: Acute Assessment and plan: MOM PRN Docusate BID Dulcolax suppository (6) Heart failure with reduced ejection fraction: Status: Acute Assessment and plan: Resume lisinopril in AM Continue home dose Coreg (7) Cardiomyopathy: Status: Acute Assessment and plan: Continue home meds (8) ASCVD (arteriosclerotic cardiovascular disease): Status: Acute Assessment and plan: On home Lipitor Gemfibrozil on hold CrCl < 30ml/minute on admit - slightly improved today (9) COPD (chronic obstructive pulmonary disease): Assessment and plan: No exacerbation- On home meds regimen Continue to monitor (10) Chronic pain disorder: Assessment and plan: On home dose oxycodone (11) Diabetes mellitus type II, controlled: Status: Chronic Assessment and plan: Ongoing fingersticks AC and HS with SSI- adjust scale as needed Continue to hold oral antihyperglycemic drugs while inpatient adjust dosing as per renal function prior to d/c VS PCP management As per previous notes, ideal dose of glipizide --as per discussion with pharmacy : 2.5mg daily d/t eGFr < 50 ml/min- on hold (12) On deep vein thrombosis (DVT) prophylaxis: Status: Acute Assessment and plan: On Lovenox SC Discussed with Dr. Rubin Subjective Subjective Patient reports: voiding w/o difficulty, nausea, vomiting and other (C/o dizziness w standing up and ambulation w left sternal chest pain radiating to left shoulder resolving with sitting ); denies flatus, no bowel movement, shortness of breath or fever Exam Narrative Exam Narrative: Constitutional HENMT: Facial structures with normal appearance Neuro:alert and oriented X4 , no neurological focal deficit Resp: Unlabored breathing, clear lung bilaterally with decreased bases Cardio: regular rhythm, S1, S2, no murmur, positive pulses to all 4 ext. GI: Abdomen is not distended, soft and non tender, bowel sounds are present : Negative CVA tenderness Back/spine/Pelvis: No back tenderness, normal alignment Integumentary: No lesions or rash on exposed skin Extremities: strength 5/5 to bilateral lower and upper extremities Psych: RASS 0, congruent mood and normal affect. Objective Last Vital Signs Temp 36.2 C L 05/09/24 09:38 Pulse 78 05/09/24 09:38 Resp 18 05/09/24 03:54 BP 143/70 H 05/09/24 09:38 Pulse Ox 96 05/09/24 09:38 Laboratory Results - last 24 hr 05/09/24 06:34 WBC 5.94 RBC 4.18 L Hgb 12.6 L Hct 38.2 L MCV 91 MCH 30.1 MCHC 33.0 RDW 13.5 Plt Count 228 MPV 9.4 Immature Gran % 0.2 Neutrophils % 51.5 Lymphocytes % 35.7 Monocytes % 9.1 Eosinophils % 2.7 Basophils % 0.8 Nucleated RBC % 0.0 Absolute Neutrophils 3.06 Absolute Lymphocytes 2.12 Absolute Monocytes 0.54 Absolute Eosinophils 0.16 Absolute Basophils 0.05 Sodium 143 Potassium 4.3 Chloride 108 H Carbon Dioxide 26.8 Anion Gap 8.2 BUN 51 H Creatinine 1.5 H Est GFR (CKD-EPI 2020) 47.06 Glucose 122 H Calcium 10.0 Time Spent with Patient Time Spent with Patient: >50 minutes Time was spent: preparing to see the patient(eg.review tests), obtaining and/or reviewing separately otained hiistory, ordering medications,tests, procedures, referring, communicating with other health respiratory care assistant, indepentently interpreting results, counseling the patient and care coordination
--- NOTE | 2024-05-09 11:15 | RT.EKG_ITS ---
APPROVED REPORT Exam: Resting ECG Reason for Exam: chest pain Patient Location: I HR:76 bpm ECG Measurements Heart Rate 76 AXIS RI 183 P 57 QRSd 179 QRS 243 QT 461 T 79 QTc 519 Conclusion Atrial-sensed ventricular-paced rhythm...ventricular pacing tracks p-waves No further analysis attempted due to paced rhythm
[2024-05-09 11:53] LABS: Troponin I 49 ng/L (<or=76)
[2024-05-09] MEDS: Prochlorperazine 10 MG/2 ML VIAL 5 MG IVP (12:04)
--- NOTE | 2024-05-09 12:23 | PTTR_ITS ---
PT Notes Visit Reasons: DONTAE, hyperkalemia Inpatient Physical Therapy Treatment Note [facility] Date: 05/09/2024 PRECAUTIONS: Telemetry in place SUBJECTIVE: Patient reports nausea and vomiting this morning upon sitting at edge of bed as well as dizziness with transitions. OBJECTIVE: Patient assessment including head rotations induced vomiting with rotation to left. Patient unable to tolerate performing Melany maneuver at this time no nystagmus noted.? PAIN: denied VITALS: ?Monitored via telemetry Therapeutic Activities (55908a[]): Direct one-on-one instruction in dynamic activities to improve functional performance. ? BED MOBILITY/TRANSFERS? Rolling L/R: Independent however induced nausea Supine-sit: Independent? Sit-supine: Independent ? Sit-stand: CGA ? Stand-sit: Contact-guard assist ? Bed-Chair: Contact-guard assist with FWW? Chair-bed: Contact-guard assist FWW Provided skilled cues and instruction on performance and technique throughout. ASSESSMENT:?Patient with onset of dizziness this morning per nurse. Assessment including positional changes, head rotation to the left resulted in inducing nausea and dizziness. Patient with poor tolerance to mobility this session related to nausea vomiting dizziness with changes in head position. Attempted Melany maneuver unsuccessful as patient experienced vomiting. Patient approached at 1245 p.m. however patient declined to participate stating he was nauseous and dizzy nurse notified and reported he had just received mec lizine. PLAN: Patient will highly benefit from skilled physical therapy services including functional mobility training, bed mobility/transfer training, gait and balance training, therapeutic exercises, therapeutic activity, caregiver/staff/family education and training 1x/day, 7 days/week x 1 week. Plan of care has been reviewed with the FREIGHT CAR CLEANER DELTA SYSTEM providing the service under Physical Therapy direction. Initiate Physical Therapy intervention for strengthening, bed mobility, transfers, gait, stairs, balance training, use of assistive device. DISCHARGE RECOMMENDATIONS: Patient will benefit from home health PT services in order to progress mobility level using least restrictive assistive ambulatory device, assess home safety, identify additional equipment needs, and establish a functional maintenance program that will increase ability of patient to remain at home. TREATMENT CODE/TIME: 44812, [id number]
[2024-05-09] MEDS: Meclizine 25 MG TAB PO (12:51)
[2024-05-09] MEDS: Bisacodyl 10 MG SUPP PR (12:51)
[2024-05-09] MEDS: Enoxaparin 40 MG/0.4 ML SYR SC (16:09)
[2024-05-09] MEDS: Insulin Aspart 300 UNITS/3 ML PEN SC (17:04)
[2024-05-09] MEDS: Docusate Sodium 100 MG CAP PO (19:41)
[2024-05-09] MEDS: Melatonin 3 MG TAB PO (19:41)
[2024-05-09] MEDS: Polyethylene Glycol 3350 17 GM PACKET PO (19:41)
[2024-05-09] MEDS: Cyclobenzaprine 10 MG TAB PO (19:42)
[2024-05-09] MEDS: Mirtazapine 15 MG TAB PO (19:42)
[2024-05-09] MEDS: Atorvastatin 40 MG TAB PO (19:42)
[2024-05-10 05:51] VITALS: BP 133/68; PULSE 73; RESP 20; TEMP 36.4; O2SAT 97
[2024-05-10 07:37] VITALS: BP 139/78; PULSE 77; RESP 16; TEMP 36.5; O2SAT 97
[2024-05-10] MEDS: Normal Saline Flush 10 ML SYR IVP ×2 (07:53→19:32)
[2024-05-10] MEDS: Carvedilol 12.5 MG TAB 25 MG PO ×2 (07:54→19:31)
[2024-05-10] MEDS: Fluticasone NASAL SPRAY 16 GM BTL NS (07:54)
[2024-05-10] MEDS: Aspirin E.C. 81 MG TABEC PO (07:54)
[2024-05-10] MEDS: Docusate Sodium 100 MG CAP PO ×2 (07:55→19:31)
[2024-05-10] MEDS: Lisinopril 20 MG TAB 40 MG PO (07:55)
[2024-05-10] MEDS: amLODIPine 10 MG TAB PO (07:55)
[2024-05-10] MEDS: Furosemide 20 MG TAB PO (07:55)
[2024-05-10] MEDS: Clopidogrel 75 MG TAB PO (07:56)
[2024-05-10] MEDS: Insulin Aspart 300 UNITS/3 ML PEN SC ×3 (07:56→16:49)
[2024-05-10] MEDS: Cephalexin 500 MG CAP PO ×2 (07:56→19:31)
[2024-05-10 08:30] LABS: Anion Gap 9.5 mmol/L (3-11); BUN 35 mg/dL (7-18); CO2 25.5 mmol/L (21.0-32.0); CREATININE 1.4 mg/dL (0.70-1.30); Chloride 108 mmol/L (98-107); Estimated GFR 51.13 (mL/min/1.73m2); Glucose 152 mg/dL (74-106); Potassium 4.5 mmol/L (3.5-5.1); Sodium 143 mmol/L (136-145)
[2024-05-10] MEDS: Tiotropium Bromide-Respimat 10 PUFF INH 2 PUFF IH (08:32)
[2024-05-10] MEDS: Budesonide/Formoterol 80/4.5 6.9 GM 60 PUFF INH IH ×2 (08:32→20:43)
[2024-05-10] MEDS: Meclizine 12.5 MG TAB PO (10:12)
[2024-05-10 11:22] VITALS: BP 114/62; PULSE 86; RESP 15; TEMP 36.8; O2SAT 98
[2024-05-10] MEDS: Magnesium Citrate 300 ML BTL PO (11:25)
--- NOTE | 2024-05-10 13:00 | PT.INTREAT ---
PT Notes Visit Reasons: DONTAE, hyperkalemia Inpatient Physical Therapy Treatment Note [facility] Date: 05/10/2024 PRECAUTIONS: Telemetry in place SUBJECTIVE: Patient reports no dizziness nausea or vomiting this morning OBJECTIVE: Patient presented seated at edge of the bed on his phone denying dizziness lightheadedness..? PAIN: denied VITALS: ?Monitored via telemetry Therapeutic Activities (55267): Direct one-on-one instruction in dynamic activities to improve functional performance. ? BED MOBILITY/TRANSFERS? Sit-stand: SBA x 1 trial, contact-guard x 2 trials ? Stand-sit: Contact-guard assist x 3 trials? Bed-Chair: Contact-guard assist with FWW? Chair-bed: Contact-guard assist FWW Provided skilled cues and instruction on performance and technique throughout. Facilitated ambulation with FWW contact-guard assist level surfaces including directional changes 200 feet x 1 with wheelchair follow for safety. Patient developed sudden onset of dizziness after 200 feet requiring seated rest nurse present patient with no rotation of head prior to onset of dizziness. No change per nurse and telemetry. After seated rest patient able to ambulate 80 feet with FWW contact-guard and wheelchair follow back to room. ASSESSMENT:?Patient with spontaneous onset of dizziness with double vision no nystagmus noted without head rotation or change in eyes gaze as trigger while walking. Patient returned to room while seated in chair with eye gaze or head rotation approximately 20 degrees to left patient reported double vision with no dizziness nausea or vomiting. Nurse Reyes notified of patient's report of double vision with eye gaze to the left. PLAN: Patient will highly benefit from skilled physical therapy services including functional mobility training, bed mobility/transfer training, gait and balance training, therapeutic exercises, therapeutic activity, caregiver/staff/family education and training 1x/day, 7 days/week x 1 week. Plan of care has been reviewed with the PROPERTY HANDLER providing the service under Physical Therapy direction. Initiate Physical Therapy intervention for strengthening, bed mobility, transfers, gait, stairs, balance training, use of assistive device. DISCHARGE RECOMMENDATIONS: Patient will benefit from home health PT services in order to progress mobility level using least restrictive assistive ambulatory device, assess home safety, identify additional equipment needs, and establish a functional maintenance program that will increase ability of patient to remain at home. TREATMENT CODE/TIME: 26412/928?954
--- NOTE | 2024-05-10 15:21 | W.PM.PROGNOT ---
Date of Service Date of service: 05/10/24 Time of Service: 15:23 Assessment and Plan Assessment and plan (1) Postural dizziness: Status: Acute Assessment and plan: with ongoing symptoms. no nystagmus. looking to left brings symptoms of dizziness and diplopia continue PT meclizine prn (2) Acute kidney injury superimposed on chronic kidney disease: Status: Resolved Assessment and plan: Cr 2.5 on presentation from baseline 1.3, now at 1.4 after receiving IV fluids voiding well. Avoid nephrotoxic drugs- renal dosing as needed on hold: metformin, lisinopril has been resumed. glipizide renal dosed follow kidney function closely (3) Hyperkalemia: Status: Resolved Assessment and plan: in setting of DONTAE and on spironolactone was given Lokelma potassium normalized continue to follow (4) Heart failure with reduced ejection fraction: Status: Acute Assessment and plan: EF 40% continue asa, coreg, jonelle I, lasix. 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 (noted to have hyperkalemia on admission but in setting of DONTAE) was on spironolactone which was placed on hold (5) COPD (chronic obstructive pulmonary disease): Status: Chronic Assessment and plan: Continue home regimen- no exacerbation Continue to monitor (6) Chronic pain disorder: Status: Chronic Assessment and plan: On home dose oxycodone (7) Diabetes mellitus type II, controlled: Status: Chronic Assessment and plan: Fingersticks AC and HS with SSI- adjust scale as needed A1C 5.9 last month ideal dose of glipizide --as per discussion with pharmacy : 2.5mg daily metformin on hold during hospitalization, will resume at discharge. (8) Constipation: Status: Acute Assessment and plan: continue bowel management added mag citrate today (9) Cardiac resynchronization therapy defibrillator (OUTS[employer]-D) in place: Status: Acute Assessment and plan: Biventricular ICD (implantable cardioverter-defibrillator) in place Followed in device clinic. history of a nonischemic cardiomyopathy with an ejection fraction of 40%, prior transcatheter aortic valve replacement in addition to the implanted defibrillator. He does not have coronary artery disease as documented by cardiac catheterization in 2019. recent hospitalization for exacerbation of heart failure with bumped troponins. was followed up outpatient with cardiology with no medication changes or new testing. routine follow up in 6 months. (10) On deep vein thrombosis (DVT) prophylaxis: Status: Acute Assessment and plan: enoxaparin daily discussed with DR Rubin Subjective Subjective Patient reports: no new complaints, bowel movement and afebrile; denies shortness of breath Interval history since last seen: still having double vision and dizziness when looking towards left side. Exam Const General: cooperative, healthy appearing, comfortable and no acute distress Nutritional Appearance: average body habitus Orientation: alert, awake and oriented x3 HENTX Head: normal to inspection, normocephalic and atraumatic Face and sinus: normal facial exam Mouth: oral mucosae normal Chest Chest: normal inspection of the chest Resp Effort & Inspection: normal respiratory effort Cardio Rate: regular rate Rhythm: regular rhythm Skin General skin exam: no rashes or lesions noted Neuro General: patient alert, patient awake and patient oriented x3 Objective Last Vital Signs Temp 36.8 C 05/10/24 11:22 Pulse 86 05/10/24 11:22 Resp 15 05/10/24 11:22 BP 114/62 05/10/24 11:22 Pulse Ox 98 05/10/24 11:22 Laboratory Results - last 24 hr 05/10/24 08:07 Sodium 143 Potassium 4.5 Chloride 108 H Carbon Dioxide 25.5 Anion Gap 9.5 BUN 35 H Creatinine 1.4 H Est GFR (CKD-EPI 2020) 51.13 Glucose 152 H Calcium 10.0 Time Spent with Patient Time Spent with Patient: 35-49 minutes Time was spent: preparing to see the patient(eg.review tests), obtaining and/or reviewing separately otained hiistory, ordering medications,tests, procedures, indepentently interpreting results and counseling the patient
[2024-05-10 15:28] VITALS: BP 108/63; PULSE 95; RESP 15; TEMP 36.6; O2SAT 96
[2024-05-10] MEDS: Enoxaparin 40 MG/0.4 ML SYR SC (16:14)
[2024-05-10] MEDS: Melatonin 3 MG TAB PO (19:30)
[2024-05-10] MEDS: Atorvastatin 40 MG TAB PO (19:31)
[2024-05-10] MEDS: Cyclobenzaprine 10 MG TAB PO (19:31)
[2024-05-10] MEDS: Mirtazapine 15 MG TAB PO (19:31)
[2024-05-10 21:00] VITALS: BP 117/69; PULSE 78; RESP 16; TEMP 36.5; O2SAT 97
[2024-05-10 23:19] VITALS: BP 120/69; PULSE 72; RESP 15; TEMP 36.3; O2SAT 98
--- NOTE | 2024-05-11 | DI.CT_ITS ---
Exam(s) CT HEAD WO/W EXAM: CT HEAD WO/W CLINICAL HISTORY: Vertigo, dizzy. TECHNIQUE: Imaging Protocol: Axial computed tomography images with coronal and sagittal reformatted images were created and reviewed. CONTRAST MATERIAL: Intravenous: Omnipaque 350 Contrast volume:100 ml COMPARISON: CT HEAD WITHOUT CONTRAST from 08/10/2017 FINDINGS: Ventricles and Extra axial spaces: Normal in size and morphology for the patient's age. Hemorrhage: None. Cerebral parenchyma: Mild atrophy consistent with the patient's age. Mild white matter changes of sm all vessel disease. Enhancement: No suspicious enhancement. No evidence of significant vascular stenosis or occlusion. Midline shift: None. Brainstem/Cerebellum: Normal. Calvarium: Normal. Visualized Paranasal sinuses: Air-fluid level in left maxillary sinus. Mastoids: Clear. Internal and external auditory canals are unremarkable. IMPRESSION: Left maxillary sinusitis. No evidence of mass or infarct in the brain. No abnormal areas postcontrast enhancement. RADIATION DOSE DELIVERED: Total DLP DATA REPOSITORY: All CT scans at this facility are submitted to the National Radiology Data Registry (NRDR) Dose Index Registry (DIR) with the [employer] (ACR). RADIATION OPTIMIZATION: All CT scans at this facility use at least one of these dose optimization te chniques: automated exposure control; mA and/or kV adjustment per patient size (includes targeted exa ms where dose is matched to clinical indication); or iterative reconstruction.
[2024-05-11 03:26] VITALS: BP 127/74; PULSE 71; RESP 15; TEMP 36.8; O2SAT 98
[2024-05-11 06:45] LABS: Abs Immature Grans 0.02 10^3/uL (0.0-0.06); Absolute Basophil Count 0.04 10^3/uL (0.0-0.2); Absolute Eosinophil Count 0.16 10^3/uL (0.0-0.7); Absolute Lymphocyte Count 1.83 10^3/uL (1.2-3.4); Absolute Monocyte Count 0.49 10^3/uL (0.1-0.8); Absolute Neutrophil Count 4.07 10^3/uL (1.2-6.7); Basophils % 0.6 %; Eosinophils % 2.4 %; HCT 39.9 % (40.0-50.0); HGB 13.1 g/dL (13.5-17.5); Immature Grans % 0.3 %; Lymphocytes % 27.7 %; MCH 29.7 pg (27.0-33.0); MCHC 32.8 % (32.0-36.0); MCV 91 fL (80-95); MPV 9.3 fL (8.0-11.0); Monocytes % 7.4 %; Neutrophils % 61.6 %; Platelet Count 209 10^3/uL (130-400); RBC 4.41 10^6/uL (4.36-5.78); RDW 13.2 % (11.8-14.1); RDW-SD 44.3 fL; WBC 6.61 10^3/uL (4.4-10.8)
[2024-05-11 07:01] LABS: Anion Gap 7.6 mmol/L (3-11); BUN 33 mg/dL (7-18); CO2 27.4 mmol/L (21.0-32.0); CREATININE 1.5 mg/dL (0.70-1.30); Calcium 9.6 mg/dL (8.5-10.1); Chloride 108 mmol/L (98-107); Estimated GFR 47.06 (mL/min/1.73m2); Glucose 133 mg/dL (74-106); Potassium 4.2 mmol/L (3.5-5.1); Sodium 143 mmol/L (136-145)
[2024-05-11 07:25] VITALS: BP 157/79; PULSE 71; RESP 14; TEMP 36.5; O2SAT 98
[2024-05-11] MEDS: Cephalexin 500 MG CAP PO ×2 (07:56→19:33)
[2024-05-11] MEDS: Aspirin E.C. 81 MG TABEC PO (07:56)
[2024-05-11] MEDS: Furosemide 20 MG TAB PO (07:56)
[2024-05-11] MEDS: Polyethylene Glycol 3350 17 GM PACKET PO (07:57)
[2024-05-11] MEDS: Carvedilol 12.5 MG TAB 25 MG PO ×2 (07:57→19:33)
[2024-05-11] MEDS: Docusate Sodium 100 MG CAP PO ×2 (07:57→19:33)
[2024-05-11] MEDS: Lisinopril 20 MG TAB 40 MG PO (07:57)
[2024-05-11] MEDS: Meclizine 12.5 MG TAB PO (07:57)
[2024-05-11] MEDS: amLODIPine 10 MG TAB PO (07:57)
[2024-05-11] MEDS: Clopidogrel 75 MG TAB PO (07:57)
[2024-05-11] MEDS: Insulin Aspart 300 UNITS/3 ML PEN SC ×2 (08:06→17:22)
[2024-05-11] MEDS: Normal Saline Flush 10 ML SYR IVP ×2 (08:10→19:34)
[2024-05-11] MEDS: Budesonide/Formoterol 80/4.5 6.9 GM 60 PUFF INH IH ×2 (08:12→19:59)
[2024-05-11] MEDS: Tiotropium Bromide-Respimat 10 PUFF INH 2 PUFF IH (08:12)
--- NOTE | 2024-05-11 08:15 | NUR.NOTE ---
patient AxOx4 this shift, denies pain, assessment WNL, has questions about kidney status and holding metformin/glipizide in future on discharge, will discuss in rounds with MDs today. Pt hoping to go home today. PIV intact, FS 153 this AM and given insulin with meal, eating breakfast at this time, given prn miralax per pt request for BM (normally takes daily at home with stool softener). Patient call lane in reach, bed low/locked. Nursing Note:
--- NOTE | 2024-05-11 08:37 | PDOC.CMPRO ---
Date of service: 05/11/24 Time of Service: 08:37 Care Management Progress Note Progress Note Text Progress Note Text: Kam was sitting up on the side of the bed finishing dinner when CM met with him. Several attempts had been made earlier but Kam was not in his room. Edwige developed some dizziness and double vision over the weekend. he was to go home today but remained to have additional testing (MRI) and to work with PT. New home health PT has been recommended and will be ordered at discharge. Kam was very pleasant in interaction today. He did state that the dizziness has improved and that he does well as long as he does not turn his head to the left. Kam is looking forward to going home tomorrow. he expressed a bit of a concern about transportation but feels his neighbor Anjelica will be able to drive him home. CM assured him that [facility] would provide transportation if need be and that [facility] would cover the expense if needed. Discharge Potential Discharge Needs: PCP F/U Appt Anticipated Barriers to Discharge: None Identified Patient/Family Education Needs: Review discharge instructions, discuss Ask Me Three Transportation: Private vehicle Plan: Anticipate Kam will be discharged home with no new services. He will follow up with his community providers and plan of care and transport via [facility] vs private vehicle. CM will follow and continue to assess for discharge needs. Social Determinants of Health Screening Social Determinants of Health last assessed: 05/11/24 Will the Patient Participate in the Screening?: Yes Do you worry about having a steady place to live?: no Problems where you live: no known problems In the past 12 months, have you had to go without electric, gas, oil or water in your home?: no Have you or anyone in your house had to go without enough food to eat?: no Has lack of transportation kept you from medical appointments or from doing things needed for daily living?: no Has anyone in your life made you feel unsafe or unsupported?: no How hard is it for you to pay for the very basics like food, housing, medical care, and heating? Would you say it is:: Not hard at all Do you want help finding or keeping work or a job?: I do not need or want help If for any reason you need help with day-to-day activities such as bathing, preparing meals, shopping, managing finances, etc., do you get the help you need?: I don?t need any help How often do you feel lonely or isolated from those around you?: Never Do you speak a language other than Vincentian at home?: No Does the patient want assistance with any of the above?: No Social Determinants of Health Comments(SDOH Details): may need medical transportation help
--- NOTE | 2024-05-11 09:54 | W.INDIABCONS ---
Date of service: 05/11/24 Time of Service: 14:30 Diabetes Inpatient Consult Reason for Visit: received consult request for diabetes education DESCRIPTION/ASSESSMENT: 79yo male patient admitted for postural dizziness. PMH is long but significant for COPD, chronic pain, heart failure,ASCVD, CKD, HTN and DMII. Patioent states he checks glucose 3x daily at home Last A1c was 5.9% Pt takes metformin, glipizide, semaglutide and 19u glargine at home to help with glucose mgt. Feels he does well with management and I supported his glucose control efforts. Pt fasting and fingerticks <180 this admission. Discharge anticipated 05/12 - offered education/oupatient services - pt declined at this time but took my card for contact info should he change his mind at all INTERVENTION: will remain available for assistance menu planning and managing glucose at home PLAN: anticipate dishcharge 05/11 Time Spent in Nutritional Counseling and Treatment: 5 minutes
[2024-05-11 10:50] VITALS: BP 133/75; PULSE 81; RESP 14; TEMP 36.8; O2SAT 96
--- NOTE | 2024-05-11 12:46 | PTTR_ITS ---
PT Notes Visit Reasons: DONTAE, Hyperkalemia Inpatient Physical Therapy Treatment Note [facility] Date: 05/11/2024 PRECAUTIONS: Telemetry in place SUBJECTIVE: Patient reports no nausea or vomiting this morning but did have dizziness when he bent over to put his socks on . He reports he got meclizine and it helped ( however with head turn to left symptoms returned) OBJECTIVE: Patient presented seated at edge of the bed on his phone denying dizziness lightheadedness..? PAIN: denied VITALS: ?Monitored via telemetry Manual therapy: Melany maneuver to left performed with patient prior to mobility with positive effect on resolution of symptoms. Pt instructed in self performance and given handout. Therapeutic Activities (39997): Direct one-on-one instruction in dynamic activi ties to improve functional performance. ? BED MOBILITY/TRANSFERS? independent bed mobility ? Sit-stand:independent ? Stand-sit: independent ? Bed-Chair: supervision with FWW? Chair-bed: supervision FWW Provided skilled cues and instruction on performance and technique throughout. Facilitated ambulation with FWW contact-guard assist level surfaces including directional changes 300 feet x 1 with wheelchair follow for safety. No reports of dizziness lightheadedness or loss of balance Pt performed 5 steps x2 with rail and demonstrated how he manages the walker on the stairs with 1 rail with SBA ASSESSMENT:?Pt tolerated session well Melany maneuver successful at start of session. Pt able to demonstrate self performance of Melany with handout. Pt also demonstrates ability to manage his FWW on the stairs. Pt with no episodes of dizziness or lightheadedness. Pt did not at end of session onset of double vision with head rotation ~45 degrees to the left which resolves with return to forward head position. Pt also noted left sided neck tightness with limited rotational ROM. PLAN: Patient will highly benefit from skilled physical therapy services including functional mobility training, bed mobility/transfer training, gait and balance training, therapeutic exercises, therapeutic activity, caregiver/staff/family education and training 1x/day, 7 days/week x 1 week. Plan of care has been reviewed with the SUPERVIS[employer] providing the service under Physical Therapy direction. Initiate Physical Therapy intervention for strengthening, bed mobility, transfers, gait, stairs, balance training, use of assistive device. DISCHARGE RECOMMENDATIONS: Patient will benefit from home health PT services in order to progress mobility level using least restrictive assistive ambulatory device, assess home safety, identify additional equipment needs, and establish a functional maintenance program that will increase ability of patient to remain at home. TREATMENT CODE/TIME: 60096, 35536/ [id number]
--- NOTE | 2024-05-11 14:07 | NUR.NOTE ---
patient resting in bed, getting MRI of brain today due to dizziness, screening form being completed by store lead. Bed low/locked, bed alarm on, call lane in reach. Nursing Note:
--- NOTE | 2024-05-11 15:04 | PTTR_ITS ---
PT Notes Visit Reasons: DONTAE, Hyperkalemia Inpatient Physical Therapy Treatment Note [facility] Date: 05/11/2024 p.m. session PRECAUTIONS: Telemetry in place, cardiac defibrillator in place SUBJECTIVE: Patient reports no further dizziness however continues with double vision with head rotation greater than 30 degrees to the left. Patient reports he is having of head CT so he will not be going home today. OBJECTIVE: Patient presented seated at edge of the bed on his phone denying dizziness lightheadedness..? PAIN: denied VITALS: ?Monitored via telemetry ? BED MOBILITY/TRANSFERS? independent bed mobility ? Sit-stand:independent ? Stand-sit: independent ? Bed-Chair: supervision with FWW? Chair-bed: supervision FWW Provided skilled cues and instruction on performance and technique throughout. Facilitated ambulation with FWW SBA level surfaces including directional changes 300 feet x 2 with wheelchair follow for safety. No reports of dizziness lightheadedness or loss of balance with seated rest between patient tolerated session well Pt performed 5 steps x2 with rail and demonstrated how he manages the walker on the stairs with 1 rail with SBA ASSESSMENT:?Patient tolerated session well. Patient also able to perform head rotation during ambulation to scan environment without onset of dizziness denied reports of double vision as he limited head rotation to the left. Patient with no reports of dizziness or nausea with rapid head movement as well. PLAN: Patient will highly benefit from skilled physical therapy services including functional mobility training, bed mobility/transfer training, gait and balance training, therapeutic exercises, therapeutic activity, caregiver/staff/family education and training 1x/day, 7 days/week x 1 week. Plan of care has been reviewed with the [employer] SUPERVISOR providing the service under Physical Therapy direction. Initiate Physical Therapy intervention for strengthening, bed mobility, transfers, gait, stairs, balance training, use of assistive device. DISCHARGE RECOMMENDATIONS: Patient will benefit from home health PT services in order to progress mobility level using least restrictive assistive ambulatory device, assess home safety, identify additional equipment needs, and establish a functional maintenance program that will increase ability of patient to remain at home. TREATMENT CODE/TIME: 49742/2:05?2:40 PM
[2024-05-11 15:27] VITALS: BP 99/56; PULSE 89; RESP 16; TEMP 36.6; O2SAT 95
[2024-05-11] MEDS: Omnipaque 350 MG/ML 100 ML BTL IJ (16:00)
[2024-05-11] MEDS: Normal Saline - Diluent 50 ML VIAL IJ (16:01)
--- NOTE | 2024-05-11 17:23 | W.PM.PROGNOT ---
Date of Service Date of service: 05/11/24 Time of Service: 17:23 Assessment and Plan Assessment and plan (1) Postural dizziness: Status: Acute Assessment and plan: with ongoing symptoms. no nystagmus. looking to left brings symptoms of dizziness and diplopia continue PT skylar maneuvers meclizine prn head CT - no acute findings :Left maxillary sinusitis. No evidence of mass or infarct in the brain. No abnormal areas postcontrast enhancement. (2) Acute kidney injury superimposed on chronic kidney disease: Status: Resolved Assessment and plan: Cr 1.5 back to baseline, Avoid nephrotoxic drugs- renal dosing as needed on hold: metformin, lisinopril has been resumed. glipizide renal dosed follow kidney function closely (3) Hyperkalemia: Status: Resolved Assessment and plan: resolved (4) Heart failure with reduced ejection fraction: Status: Acute Assessment and plan: EF 40% continue asa, coreg, jonelle I, lasix. 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 (noted to have hyperkalemia on admission but in setting of DONTAE) was on spironolactone which was placed on hold (5) COPD (chronic obstructive pulmonary disease): Status: Chronic Assessment and plan: Continue home regimen- no exacerbation Continue to monitor (6) Chronic pain disorder: Status: Chronic Assessment and plan: On home dose oxycodone (7) Diabetes mellitus type II, controlled: Status: Chronic Assessment and plan: Fingersticks AC and HS with SSI- adjust scale as needed A1C 5.9 last month ideal dose of glipizide --as per discussion with pharmacy : 2.5mg daily metformin on hold during hospitalization, will resume at discharge. (8) Constipation: Status: Acute Assessment and plan: continue bowel management (9) Cardiac resynchronization therapy defibrillator (SENIOR PHYSICAL THERAPIST-D) in place: Status: Acute Assessment and plan: Biventricular ICD (implantable cardioverter-defibrillator) in place (NO MRI at [facility] - not compatible) Followed in device clinic. history of a nonischemic cardiomyopathy with an ejection fraction of 40%, prior transcatheter aortic valve replacement in addition to the implanted defibrillator. He does not have coronary artery disease as documented by cardiac catheterization in 2019. recent hospitalization for exacerbation of heart failure with bumped troponins. was followed up outpatient with cardiology with no medication changes or new testing. routine follow up in 6 months. (10) On deep vein thrombosis (DVT) prophylaxis: Status: Acute Assessment and plan: enoxaparin daily discussed with Dr Rubin Subjective Subjective Patient reports: no new complaints, tolerating liquids well, tolerating a regular diet, voiding w/o difficulty, bowel movement, diarrhea and afebrile; denies nausea or shortness of breath Interval history since last seen: Patient reports having less dizziness, however sometimes still feels off balance when he loks a certain way. Exam Const General: cooperative, healthy appearing, comfortable and no acute distress Nutritional Appearance: average body habitus Orientation: alert, awake and oriented x3 HENMT Head: normal to inspection, normocephalic and atraumatic Face and sinus: normal facial exam Mouth: oral mucosae normal Chest Chest: normal inspection of the chest Resp Effort & Inspection: normal respiratory effort Cardio Rate: regular rate Rhythm: regular rhythm Skin General skin exam: no rashes or lesions noted Neuro General: patient alert, patient awake and patient oriented x3 Objective Last Vital Signs Temp 36.6 C 05/11/24 15:27 Pulse 89 05/11/24 15:27 Resp 16 05/11/24 15:27 BP 99/56 L 05/11/24 15:27 Pulse Ox 95 05/11/24 15:27 Laboratory Results - last 24 hr 05/11/24 06:01 WBC 6.61 RBC 4.41 Hgb 13.1 L Hct 39.9 L MCV 91 MCH 29.7 MCHC 32.8 RDW 13.2 Plt Count 209 MPV 9.3 Immature Gran % 0.3 Neutrophils % 61.6 Lymphocytes % 27.7 Monocytes % 7.4 Eosinophils % 2.4 Basophils % 0.6 Nucleated RBC % 0.0 Absolute Neutrophils 4.07 Absolute Lymphocytes 1.83 Absolute Monocytes 0.49 Absolute Eosinophils 0.16 Absolute Basophils 0.04 Sodium 143 Potassium 4.2 Chloride 108 H Carbon Dioxide 27.4 Anion Gap 7.6 BUN 33 H Creatinine 1.5 H Est GFR (CKD-EPI 2020) 47.06 Glucose 133 H Calcium 9.6 Time Spent with Patient Time Spent with Patient: 25-34 minutes Time was spent: preparing to see the patient(eg.review tests), ordering medications,tests, procedures, referring, communicating with other health health care / medical job titles, indepentently interpreting results, counseling the patient and care coordination
--- NOTE | 2024-05-11 17:29 | NUR.NOTE ---
head CT negative, MRi cancelled due to incompatible PPM with AICD. Patient aware of CT head results, d/c to home tomorrow after 1200 due to his timing of available ride. Patient resting in bed at this time finishing dinner, call lane in reach, bed alarm on. Nursing Note:
[2024-05-11 19:22] VITALS: BP 156/75; PULSE 76; RESP 20; TEMP 36.8; O2SAT 97
[2024-05-11] MEDS: Mirtazapine 15 MG TAB PO (19:33)
[2024-05-11] MEDS: Cyclobenzaprine 10 MG TAB PO (19:33)
[2024-05-11] MEDS: Melatonin 3 MG TAB PO (19:33)
[2024-05-11] MEDS: Atorvastatin 40 MG TAB PO (19:33)
[2024-05-11 22:32] VITALS: BP 140/67; PULSE 73; RESP 19; TEMP 36.4; O2SAT 96
[2024-05-12 06:49] LABS: Abs Immature Grans 0.02 10^3/uL (0.0-0.06); Absolute Basophil Count 0.04 10^3/uL (0.0-0.2); Absolute Eosinophil Count 0.22 10^3/uL (0.0-0.7); Absolute Monocyte Count 0.57 10^3/uL (0.1-0.8); Absolute Neutrophil Count 4.95 10^3/uL (1.2-6.7); Basophils % 0.5 %; Eosinophils % 2.9 %; HCT 38.1 % (40.0-50.0); HGB 12.6 g/dL (13.5-17.5); Immature Grans % 0.3 %; Lymphocytes % 22.7 %; MCH 29.8 pg (27.0-33.0); MCHC 33.1 % (32.0-36.0); MCV 90 fL (80-95); MPV 9.4 fL (8.0-11.0); Monocytes % 7.6 %; Platelet Count 197 10^3/uL (130-400); RBC 4.23 10^6/uL (4.36-5.78); RDW 13.2 % (11.8-14.1); RDW-SD 43.8 fL
[2024-05-12 07:06] LABS: Anion Gap 7.6 mmol/L (3-11); BUN 30 mg/dL (7-18); CO2 25.4 mmol/L (21.0-32.0); CREATININE 1.5 mg/dL (0.70-1.30); Calcium 9.6 mg/dL (8.5-10.1); Chloride 107 mmol/L (98-107); Estimated GFR 47.06 (mL/min/1.73m2); Glucose 139 mg/dL (74-106); Potassium 4.2 mmol/L (3.5-5.1); Sodium 140 mmol/L (136-145)
[2024-05-12 07:26] VITALS: BP 143/79; PULSE 75; RESP 19; TEMP 36.9; O2SAT 98
[2024-05-12] MEDS: Tiotropium Bromide-Respimat 10 PUFF INH 2 PUFF IH (07:53)
[2024-05-12] MEDS: Budesonide/Formoterol 80/4.5 6.9 GM 60 PUFF INH IH (07:53)
[2024-05-12] MEDS: Normal Saline Flush 10 ML SYR IVP (08:16)
[2024-05-12] MEDS: Insulin Aspart 300 UNITS/3 ML PEN SC (08:16)
[2024-05-12] MEDS: amLODIPine 10 MG TAB PO (08:17)
[2024-05-12] MEDS: Lisinopril 20 MG TAB 40 MG PO (08:17)
[2024-05-12] MEDS: Cephalexin 500 MG CAP PO (08:18)
[2024-05-12] MEDS: Furosemide 20 MG TAB PO (08:18)
[2024-05-12] MEDS: Docusate Sodium 100 MG CAP PO (08:18)
[2024-05-12] MEDS: Carvedilol 12.5 MG TAB 25 MG PO (08:18)
[2024-05-12] MEDS: Clopidogrel 75 MG TAB PO (08:18)
[2024-05-12] MEDS: Aspirin E.C. 81 MG TABEC PO (08:18)
[2024-05-12] MEDS: Fluticasone NASAL SPRAY 16 GM BTL NS (08:28)
--- NOTE | 2024-05-12 08:55 | CMDISCH_ITS ---
Date of service: 05/12/24 Time of Service: 08:55 LACE Index Scoring Tool Questions: Length of Stay (in days): 4 - 6 Was the patient admitted via the E.D.?: Yes Comorbidities: Diabetes w/o Complication, Congestive Heart Failure, Chronic Pulmonary Disease and Liver or Renal Disease E.D. Visits: 2 Answers: Total Score: 14 Risk of Readmission: High Risk Care Management Discharge Plan Reason for Hospitalization: DONTAE Discharge Plan: Kam will be discharged home with no new services. He will follow up with his community providers and plan of care and transport via [facility] vs private vehicle. Patient/Family Education Needs: Review discharge instructions, discuss Ask Me Three SDOH Health Related Social Needs: Health related social needs inadequate housing (Z59.1) , transportation insecurity (Z59.82), problems related to housing/economic circumstances (Z59.89), problems with daily activities (Z73.9) Health related social needs details Kam lives in an a partment which is secure. His transportation instability relates to long distances only. Kam can only drive short distances. CM encouraged him to ask for support through his PCP to get a letter of necessity for [facility] for his long distance appointments.
--- NOTE | 2024-05-12 09:36 | DSE_ITS ---
Date of service: 05/12/24 Time of Service: 09:36 DS: Diagnosis Discharge Diagnosis (1) Postural dizziness: Status: Acute (2) Hyperkalemia: Status: Resolved Discharge Plan Disposition Patient Disposition: Home Condition: Good Discharge Details Reason For Visit: DONTAE, Hyperkalemia Admit Date/Time: 05/07/24 13:22 Admit Provider: Tobias Rubin Attending Provider: Tobias Rubin Primary Care Provider: Tien Galicia [facility] Hospital Course: Reason for Admission: The patient is a 79-year-old male with a history of coronary artery disease, heart failure with reduced ejection fraction, chronic kidney disease, type II diabetes mellitus, hypertension, chronic obstructive pulmonary disease, and obstructive sleep apnea, who presented to the Emergency Department at [facility] for evaluation of chest pain at rest, radiating to the left upper extremity. The pain lasted 90 minutes and resolved spontaneously by the time of presentation. History of Present Illness: The patient has a history of NSTEMI earlier this month, treated conservatively with aspirin, Plavix, and chronic oral furosemide. The patient presented with new chest pain at rest, which lasted for 90 minutes and resolved spontaneously. He reported increased weakness, difficulty with concentration, chills, dizziness, and reduced fluid intake over the past 1-2 weeks. The patient denied fever, night sweats, shortness of breath, productive cough, chest pain r ecurrence, nausea, vomiting, diarrhea, or dysuria. Notably, the patient also experienced vertigo during his hospitalization, which was effectively managed with meclizine and Melany maneuvers, resulting in improvement of symptoms. He had a CT of the head that had no acute findings. Of note - the patient is unable to undergo MRI at [facility] due to the presence of an implanted defibrillator, which is not compatible with MRI. Alternate imaging options may be considered for future evaluations if necessary. 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 * Troponins: Flat at 68 & 64. * BMP: BUN/Cr at 102/2.5 (from baseline of 30/1.3), potassium 5.4. * Head CT: No evidence of mass or infarct, post-contrast enhancement negative. * Chest X-ray: No acute findings. * Labs: Creatinine 2.4 on admission, normalized to baseline 1.5 on discharge * Acute Kidney Injury (DONTAE) on Chronic Kidney Disease: * The patient?s renal function has worsened from baseline, with a BUN/Cr of 102/2.5. He has a history of chronic furosemide use and reduced fluid intake. it has normalized to his baseline of 1.5 * Hyperkalemia (Acute): * Potassium 5.4, indicating mild hyperkalemia; normalized to 4.2 on discharge * Heart Failure with Reduced Ejection Fraction (HFrEF): * Stable, with an LVEF of 40%. * Cardiomyopathy: * Stable. * Chronic Pain Disorder: * Stable on home oxycodone for chronic pain. * Diabetes Mellitus Type II (Controlled): * Continue antihyperglycemic medications. * Home Health Services: * The patient will benefit from home health physical therapy services to help with mobility, assess home safety, and establish a functional maintenance program. This will assist in keeping the patient at home with the least restrictive ambulatory aid. Follow-up Recommendations: * Follow-up with Primary Care Physician for sinusitis. * Follow-up for any cardiac concerns (last echo 11/02/24 Moderate left ventricular hypertrophy. Ejection fraction is 40%. There are wall motion abnormalities involving the inferior posterior and posterior lateral esparza Normal right ventricular size and systolic function) * Follow-up with nephrology for chronic kidney disease and possible adjustment of renal medications. * Regular monitoring of renal function, electrolytes, and glucose levels. * Start home physical therapy to maintain mobility and prevent further decline. Discharge Medications: * Continue home medications with adjustments as needed: * ASA * Plavix * Coreg * Lipitor * Oxycodone * Antihyperglycemic agents. Disposition: * Discharged to home with a follow-up appointment with PCP and cardiology. The patient was stable at the time of discharge, and no further acute interventions were needed. Home Meds and New Rx's Prescriptions: No Action oxycodone 10 mg tablet 10 mg PO BID MDD 30 mg PRN (Reason: pain) Qty: 60 0RF Rx Instructions: May take an additional tab daily up to twice a month, if needed furosemide 20 mg tablet 40 mg PO DAILY Qty: 90 3RF spironolactone 25 mg tablet 25 mg PO DAILY Qty: 90 3RF naloxone [Narcan] 4 mg/actuation spray,non-aerosol 1 spray intranasal Q3M Qty: 2 0RF Rx Instructions: spray 1 dose into ONE nostril; alternate nostrils w each dose until help arrives albuterol sulfate 2.5 mg /3 mL (0.083 %) solution for nebulization 2.5 mg UPD Q2H PRN PRN (Reason: shortness of breath or wheezing) Qty: 180 3RF aspirin 81 MG tablet,delayed release (DR/EC) 81 mg PO DAILY (DME) nebulizers [DevilSeeClickFix Disposable Nebulizer] 1 EACH misc 1 ea Miscellaneous QID Qty: 1 Rx Instructions: Dx:R06.09 ARDS (DME) Oxygen Tank See Rx Instructions .Route Rx Instructions: 11/01/22 Sleep Note: 3LPM for sleep.HE amlodipine 10 mg tablet 10 mg PO DAILY Qty: 90 3RF Patient Comments: Pt. states,I'm no longer taking this medication. Rx Instructions: lower BP <140/85 atorvastatin 40 mg tablet 40 mg PO QHS Qty: 90 3RF cephalexin 500 mg capsule 500 mg PO BID Qty: 180 3RF colchicine 0.6 mg tablet 0.6 mg PO BID PRN (Reason: gout attack) Qty: 30 3RF fenofibrate nanocrystallized 145 mg tablet 145 mg PO DAILY Qty: 90 3RF fluticasone propionate [Flonase Allergy Relief] 50 mcg/actuation spray,suspension 2 spray NS DAILY Qty: 1 6RF Rx Instructions: each nostril once daily for rhinnitis Trelegy Ellipta 100-62.5-25 mcg blister with device See Rx Instructions .ROUTE .COMPLEX Qty: 60 12RF Dose Instruction: INHALE 1 PUFF BY MOUTH DAILY Rx Instructions: INHALE 1 PUFF BY MOUTH DAILY glipizide 5 mg tablet 5 mg PO BID Qty: 180 3RF lisinopril 40 mg tablet 80 mg PO DAILY Qty: 180 3RF metformin 500 mg tablet 1,000 mg PO BID Qty: 360 3RF mirtazapine [Remeron] 15 mg tablet 15 mg PO QPM Qty: 90 3RF nitroglycerin [Nitrostat] 0.4 mg tablet, sublingual 0.4 mg SL PRN Qty: 30 3RF triamcinolone acetonide 0.1 % cream 1 applic topical BID Qty: 30 5RF Rx Instructions: apply to feet daily (DME) Accu-Chek Sherri Plus test strp Strip See Rx Instructions .ROUTE .COMPLEX Qty: 300 3RF Dose Instruction: USE STRIPS DIRECTED THREE TIMES A DAY Rx Instructions: USE STRIPS DIRECTED THREE TIMES A DAY (DME) lancets [Accu-Chek Softclix Lancets] Misc See Rx Instructions .ROUTE .MEDSUPPLY Qty: 100 6RF Rx Instructions: Dx: E11.9, to keep HbA1c <7%, test TID (DME) pen needle, diabetic [BD Ultra-Fine Rebecca Pen Needle] 32 gauge x 5/32 needle 1 ea Miscellaneous DAILY 30 Days Qty: 200 6RF Rx Instructions: To keep HbA1c below 6.5% semaglutide 1 mg/dose (2 mg/1.5 mL) pen injector 2 mg subcut QWEEK 28 Days Qty: 6 11RF polyethylene glycol 3350 17 gram powder in packet 17 g PO DAILY PRN PRN (Reason: Constipation) Qty: 30 0RF acetaminophen [Tylenol] 325 mg Tablet 325 mg PO Q4H PRN Rx Instructions: 1-2 tabs cyclobenzaprine 10 mg tablet 10 mg PO TID PRN PRN (Reason: muscle spasm) Rx Instructions: 1 tablet in the morning and 2 tablets in the evening, as needed, for muscle spasms albuterol sulfate [Ventolin HFA] 90 mcg/actuation HFA aerosol inhaler 2 puff inhalation 6XD PRN Ozempic 2 mg/dose (8 mg/3 mL) pen injector 8 mg SUBCUT QWEEK Patient Comments: takes every Saturday carvedilol 25 mg Tablet 25 mg PO BID Qty: 60 0RF clopidogrel 75 mg Tablet 75 mg PO DAILY Qty: 30 0RF Discharge Instructions Additional Instructions: Follow up with you PCP and cardiology. Home health will call you and arrange home visits for physical therapy. Stand Alone Forms: Nursing Discharge Form Referrals: [facility] [Provider Group] - 05/28/24 11:00 am Tien Galicia DO [Primary Care Provider] - 05/18/24 1:45 pm (1 week post hospitalization visit) Activity:: Activity as Tolerated Equipment/Supplies:: No Equipment Needed Diet:: As Tolerated Discharge Orders Discharge Orders: Discharge Order (Routine); Ordered 05/12/24 Ordered By: Li Bear DS: Summary Time Spent with Patient providing and/or coordinating discharge services: Greater than 30 minutes Status at Discharge Functional status at discharge: uses cane/walker Overall status at discharge: patient is back to baseline Mental Status: mental status grossly normal Speech and Movement: speech and movement normal Mood: congruent mood Affect: normal affect Quality:SDOH Health Related Social Needs: Health related social needs inadequate housing (Z59.1) , transportation insecurity (Z59.82), problems related to housing/economic circumstances (Z59.89), problems with daily activities (Z73.9) Health related social needs details Kam lives in an a partment which is secure. His transportation instability relates to long distances only. Kam can only drive short distances. encouraged him to ask for support through his PCP to get a letter of necessity for RCT for his long distance appointments. Exam Const General: cooperative, healthy appearing, comfortable and no acute distress Nutritional Appearance: average body habitus Orientation: alert, awake and oriented x3 HENCO Head: normal to inspection, normocephalic and atraumatic Face and sinus: normal facial exam Mouth: oral mucosae normal Chest Chest: normal inspection of the chest Resp Effort & Inspection: normal respiratory effort Cardio Rate: regular rate Rhythm: regular rhythm Skin General skin exam: no rashes or lesions noted Neuro General: patient alert, patient awake and patient oriented x3 Psych Mental Status: mental status grossly normal Speech and Movement: speech and movement normal Mood: congruent mood Affect: normal affect DS: Data Vitals/I&O Vitals and I&O: Vital Signs Temperature 36.9 C 05/12/24 07:26 Temperature Source Temporal Artery Scan 05/12/24 07:26 Pulse 75 05/12/24 07:26 Pulse Rhythm Regular 05/07/24 14:08 Pulse 93 H 05/07/24 13:32 Respiratory Rate 19 05/12/24 07:26 Respiratory Effort Normal, Non-Labored 05/07/24 14:08 Respiratory Depth Normal 05/07/24 14:08 Respiratory Pattern Normal 05/07/24 14:08 Blood Pressure 143/79 H 05/12/24 07:26 Blood Pressure Mean 97 05/07/24 13:32 Blood Pressure Position Supine 05/07/24 10:24 Pulse Oximetry 98 05/12/24 07:26 Oxygen Delivery Method Room Air 05/12/24 07:26 Oxygen Flow Rate 0 05/12/24 07:26 Pain Level 0 05/11/24 22:32 Comment pt refused vitals 05/12/24 03:12 Intake & Output 05/11/24 05/11/24 05/12/24 11:59 23:59 11:59 Intake Total 1300 / 2490 1190 / 2490 300 / 300 Balance 1300 / 2490 1190 / 2490 300 / 300 Intake: Oral 1300 / 2490 1190 / 2490 300 / 300 Other: Urine Appearance Clear Comment pT voided independently pT voided independently Stool Size Moderate Stool Characteristics Liquid Brown Data Completed and Pending Labs on day of discharge: Labs from last 24 hours 05/12/24 06:06 WBC 7.50 RBC 4.23 L Hgb 12.6 L Hct 38.1 L MCV 90 MCH 29.8 MCHC 33.1 RDW 13.2 Plt Count 197 MPV 9.4 Immature Gran % 0.3 Neutrophils % 66.0 Lymphocytes % 22.7 Monocytes % 7.6 Eosinophils % 2.9 Basophils % 0.5 Nucleated RBC % 0.0 Absolute Neutrophils 4.95 Absolute Lymphocytes 1.70 Absolute Monocytes 0.57 Absolute Eosinophils 0.22 Absolute Basophils 0.04 Sodium 140 Potassium 4.2 Chloride 107 Carbon Dioxide 25.4 Anion Gap 7.6 BUN 30 H Creatinine 1.5 H Est GFR (CKD-EPI 2020) 47.06 Glucose 139 H Calcium 9.6 Magnesium 2.0 PFSH All Active Problems (Updated 05/12/24 @ 09:36 by Li Bear NP) Postural dizziness (Acute) Cardiac resynchronization therapy defibrillator (SKEIN DRIER-D) in place (Acute ~01/03/18) COPD (chronic obstructive pulmonary disease) (Chronic) Chronic pain disorder (Chronic 10/26/16) multiple sources; s/p Chronic Pain workshop [facility] X [facility], s/p PT; s/p [place] workshop Constipation (Acute) On deep vein thrombosis (DVT) prophylaxis (Acute) Acute kidney injury (Acute) Chest pain of uncertain etiology (Acute) Heart failure with reduced ejection fraction (Acute) Insomnia (Acute) Sinusitis, acute (Acute) Pulmonary edema (Acute) Acute kidney injury (Acute) Cardiomyopathy (Acute) Vitamin B12 deficiency (Acute) Vitamin D deficiency (Acute) Fatigue (Acute) Other secondary cataract, bilateral (Acute) Constipation due to pain medication (Acute) ASCVD (arteriosclerotic cardiovascular disease) (Acute) Toe deformity (Acute) Neuropathy (Acute) Nail dystrophy (Acute) Pulmonary nodules (Acute) Personal history of nicotine dependence (Acute) History of transcatheter aortic valve replacement (TAVR) (Acute) Diabetes mellitus type II, controlled (Chronic) Advance directive on file (Acute) CHF (congestive heart failure) (Chronic) Chest pain (Acute) Sciatica of left side (Acute 03/26/16) Dermatitis (Acute 02/08/11) Chronic kidney disease (CKD) stage G3a/A1, moderately decreased glomerular filtration rate (GFR) between 45-59 mL/min/1.73 square meter and albuminuria creatinine ratio less than 30 mg/g (Acute 05/24/17) Biventricular ICD (implantable cardioverter-defibrillator) in place (Acute) Diverticulosis (Acute) intermediate designer (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 Left L3 radiculopathy: Pain clinic injec 09/2016. Left lumbar radiculopathy (Chronic 10/26/16) s/p Left L3 steroid inj 09/2016 Dr Olsen Hypertriglyceridemia (Chronic 12/31/14) Distal paresthesia (Chronic 02/16/14) nocturnal warm feelings both feet began about 11/2013, ?early peripheral neuropathy Chronic obstructive pulmonary disease (Chronic 01/21/17) Dr Wright 12/201601/02/19 F/U with Dr Ibrahim Neuropathy, lateral femoral cutaneous nerve (Chronic) Diabetes mellitus, type II (Chronic) a. poor control b. recent self hydration with two 2 L bottles of gingerale Hypertension (Chronic) Hyperlipidemia (Chronic) Obesity (Chronic) Peripheral neuropathy (Chronic) Weakness (Chronic 04/16/14) Medical History (Updated 05/12/24 @ 09:36 by Li Bear NP) Complete heart block Obstructive sleep apnea syndrome (~2016) DM neuro manif type II Lumbar back pain with radiculopathy affecting left lower extremity Sciatica Eczema History of bacteremia Cardiac murmur (02/08/11) Adjustment disorder, unspecified (09/03/16) Acute gastroenteritis Encounter for physical therapy (04/16/14) s/p mechanical ventilation (04/16/14) s/p respiratory failure (04/16/14) a. secondary to influenza B and ARDS, requiring mechanical ventilation for four days, then extubated, reintubated and required another four days of mechanical ventilation, now on room air Influenza with respiratory manifestations (04/16/14) a. TYPE B INFLUENZA Surgical History Biventricular ICD (implantable cardioverter-defibrillator) in place (01/03/18) [employer] SKEIN DRIER-D PACEMAKER DEPENDENT - EXQUISITELY SENSITIVE TO TESTING History of cataract surgery Nuclear sclerotic cataract of left eye (~12/04/19) Cortical cataract of right eye (11/20/19) S/P TAVR (transcatheter aortic valve replacement) (~09/2017) Central line for TPN (03/31/14) with pneumonia Biopsy Skin of left mandaeism (12/10/14) Dr. Kermit Edwards Final pathologic diagnosis-Sebottheic keratosis Family History Mother Stroke Father , CHF at age 88. CHF (congestive heart failure) Fluid overload Hypertension Social History Smoking/Tobacco Use Status: Current-Occasional Tobacco Type: cigarettes and cigars Tobacco: How many years used: 60 Quit status: considering quitting Counseling given: counseling >3 minutes Smoking risk assessment performed?: Yes Alcohol Intake: former Drug use: Never Substance use type: does not use Caregiver/Support person: No Household members: none Housing: apartment Number of Children: 0 Communication Needs: Corrective Lenses Education Level: high school Do you need help understanding health information?: Rarely Pets and animals: Yes Pets and animals: cat(s) Current gender identity: male What is your relationship status?: refused to answer How often do you talk on the phone with friends or family?: twice per week How often do you get together with friends or relatives?: once per week How often do you attend religion or hinduism services?: decline to answer Do you belong to any clubs or organized social groups?: no Panel score (0-1 are the most socially isolated patients): 1 What type of physical activity do you participate in: bicycling and other Details: stationary bike Duration: 15-30 minutes/day Frequency: 3-4 times per week Rama/Sikhism: Baptism Special rama needs: No Agree to transfusion: Yes Seatbelt use: always Helmet use: No Drive intox or ride w/intox miniature train driver: No Water heater temp set <120 deg: Yes Working smoke detector in home: Yes Fire extinguisher in home: Yes Carbon monox detector in home: Yes Do you feel safe at home: Yes Do you feel safe in your relationship?: Yes Additional Social history: Exposure to- asbestos, chemicals an toxins. Time Spent with Patient Time Spent with Patient: 45-69 minutes Time was spent: preparing to see the patient(eg.review tests), obtaining and/or reviewing separately otained hiistory, ordering medications,tests, procedures, referring, communicating with other health pet care associate, indepentently interpreting results, counseling the patient and care coordination
--- NOTE | 2024-05-12 10:32 | NUR.NOTE ---
nursing assessment reviewed and cosigned at this time, concur with all findings. Pt is AxOx4 this shift, denies pain or dizziness during assessment. Pt is to dc to home today with self, pending ride after 1200 and dc paperwork. PIV intact, all systems WNL, tolerating PO and using bathroom independently, walker to ambulate. Education will be provided by nursing prior to d/c on medications and disease processes. Nursing Note:
--- NOTE | 2024-05-12 10:38 | PDOC.HHF2F_ITS ---
Home Health Referral Home Health Orders Clinical synopsis of why skilled professionals are needed: Deconditioning, safety, maintain mobility, mitigate decline in functional status Medical diagnosis necessitation home health referral: Reason for Admission: The patient is a 79-year-old male with a history of coronary artery disease, heart failure with reduced ejection fraction, chronic kidney disease, type II diabetes mellitus, hypertension, chronic obstructive pulmonary disease, and obstructive sleep apnea, who presented to the Emergency Department at [facility] for evaluation of chest pain at rest, radiating to the left upper extremity. The pain lasted 90 minutes and resolved spontaneously by the time of presentation. History of Present Illness: The patient has a history of NSTEMI earlier this month, treated conservatively with aspirin, Plavix, and chronic oral furosemide. The patient presented with new chest pain at rest, which lasted for 90 minutes and resolved spontaneously. He reported increased weakness, difficulty with concentration, chills, dizziness, and reduced fluid intake over the past 1-2 weeks. The patient denied fever, night sweats, shortness of breath, productive cough, chest pain recurrence, nausea, vomiting, diarrhea, or dysuria. Notably, the patient also experienced vertigo during his hospitalization, which was effectively managed with meclizine and Melany maneuvers, resulting in impr ovement of symptoms. He had a CT of the head that had no acute findings. Of note - the patient is unable to undergo MRI at [facility] due to the presence of an implanted defibrillator, which is not compatible with MRI. Alternate imaging options may be considered for future evaluations if necessary. 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 * Troponins: Flat at 68 & 64. * BMP: BUN/Cr at 102/2.5 (from baseline of 30/1.3), potassium 5.4. * Head CT: No evidence of mass or infarct, post-contrast enhancement negative. * Chest X-ray: No acute findings. * Labs: Creatinine 2.4 on admission, normalized to baseline 1.5 on discharge * Acute Kidney Injury (DONTAE) on Chronic Kidney Disease: * The patient?s renal function has worsened from baseline, with a BUN/Cr of 102/2.5. He has a history of chronic furosemide use and reduced fluid intake. it has normalized to his baseline of 1.5 * Hyperkalemia (Acute): * Potassium 5.4, indicating mild hyperkalemia; normalized to 4.2 on discharge * Heart Failure with Reduced Ejection Fraction (HFrEF): * Stable, with an LVEF of 40%. * Cardiomyopathy: * Stable. * Chronic Pain Disorder: * Stable on home oxycodone for chronic pain. * Diabetes Mellitus Type II (Controlled): * Continue antihyperglycemic medications. * Home Health Services: * The patient will benefit from home health physical therapy services to help with mobility, assess home safety, and establish a functional maintenance program. This will assist in keeping the patient at home with the least restrictive ambulatory aid. Follow-up Recommendations: * Follow-up with Primary Care Physician for sinusitis. * Follow-up for any cardiac concerns (last echo 11/02/24 Moderate left ventricular hypertrophy. Ejection fraction is 40%. There are wall motion abnormalities involving the inferior posterior and posterior lateral esparza Normal right ventricular size and systolic function) * Follow-up with nephrology for chronic kidney disease and possible adjustment of renal medications. * Regular monitoring of renal function, electrolytes, and glucose levels. * Start home physical therapy to maintain mobility and prevent further decline. Physical Therapist: Check all that apply Increase strength & endurance for safe mobility at home: Ordered To design/establish home maintenance program: Ordered Fall reduction therapy program for patient with history of frequent falls: Ordered Home safety evaluation and teaching/gait training including stair management (if applicable): Ordered Home Bound Status Requires the aid of supportive device (check all that apply): Walker Patient has a condition such that leaving home is medically contraindicated (Describe): PCP recommends patient only leaves his home for essentials (Pharmacy, doctor appts) Describe why leaving home would require a considerable and taxing effort: Requir es frequent rest periods and Safety Concerns: describe Encounter Date and Reason: I certify that a FTF encounter for this patient was performed on May 12, 2024 and that such encounter was related to the primary reason the patient requires home health services. The encounter was conducted in the following manner: * By me as the certifying physician, WIREWORKER, PA or * By an inpatient physician, WIREWORKER or PA during an inpatient stay who communicated findings to me, Certification And Authentication I certify that I composed the above information based on my clinical judgment relating to this patient's medical condition and, if applicable, clinical findings communicated to me by the NPP or inpatient physician who performed the FTF encounter. Name of Provider that will be monitoring home health services: Tien Galicia
--- NOTE | 2024-05-12 10:38 | PDOC.HHF2F ---
Home Health Referral Home Health Orders Clinical synopsis of why skilled professionals are needed: Deconditioning, safety, maintain mobility, mitigate decline in functional status Medical diagnosis necessitation home health referral: Reason for Admission: The patient is a 79-year-old male with a history of coronary artery disease, heart failure with reduced ejection fraction, chronic kidney disease, type II diabetes mellitus, hypertension, chronic obstructive pulmonary disease, and obstructive sleep apnea, who presented to the Emergency Department at [facility] for evaluation of chest pain at rest, radiating to the left upper extremity. The pain lasted 90 minutes and resolved spontaneously by the time of presentation. History of Present Illness: The patient has a history of NSTEMI earlier this month, treated conservatively with aspirin, Plavix, and chronic oral furosemide. The patient presented with new chest pain at rest, which lasted for 90 minutes and resolved spontaneously. He reported increased weakness, difficulty with concentration, chills, dizziness, and reduced fluid intake over the past 1-2 weeks. The patient denied fever, night sweats, shortness of breath, productive cough, chest pain recurrence, nausea, vomiting, diarrhea, or dysuria. Notably, the patient also experienced vertigo during his hospitalization, which was effectively managed with meclizine and Melany maneuvers, resulting in improvement of symptoms. He had a CT of the head that had no acute findings. Of note - the patient is unable to undergo MRI at [facility] due to the presence of an implanted defibrillator, which is not compatible with MRI. Alternate imaging options may be considered for future evaluations if necessary. 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 Troponins: Flat at 68 & 64. BMP: BUN/Cr at 102/2.5 (from baseline of 30/1.3), potassium 5.4. Head CT: No evidence of mass or infarct, post-contrast enhancement negative. Chest X-ray: No acute findings. Labs: Creatinine 2.4 on admission, normalized to baseline 1.5 on discharge Acute Kidney Injury (DONTAE) on Chronic Kidney Disease: The patient?s renal function has worsened from baseline, with a BUN/Cr of 102/2.5. He has a history of chronic furosemide use and reduced fluid intake. it has normalized to his baseline of 1.5 Hyperkalemia (Acute): Potassium 5.4, indicating mild hyperkalemia; normalized to 4.2 on discharge Heart Failure with Reduced Ejection Fraction (HFrEF): Stable, with an LVEF of 40%. Cardiomyopathy: Stable. Chronic Pain Disorder: Stable on home oxycodone for chronic pain. Diabetes Mellitus Type II (Controlled): Continue antihyperglycemic medications. Home Health Services: The patient will benefit from home health physical therapy services to help with mobility, assess home safety, and establish a functional maintenance program. This will assist in keeping the patient at home with the least restrictive ambulatory aid. Follow-up Recommendations: Follow-up with Primary Care Physician for sinusitis. Follow-up for any cardiac concerns (last echo 11/02/24 Moderate left ventricular hypertrophy. Ejection fraction is 40%. There are wall motion abnormalities involving the inferior posterior and posterior lateral esparza Normal right ventricular size and systolic function) Follow-up with nephrology for chronic kidney disease and possible adjustment of renal medications. Regular monitoring of renal function, electrolytes, and glucose levels. Start home physical therapy to maintain mobility and prevent further decline. Physical Therapist: Check all that apply Increase strength & endurance for safe mobility at home: Ordered To design/establish home maintenance program: Ordered Fall reduction therapy program for patient with history of frequent falls: Ordered Home safety evaluation and teaching/gait training including stair management (if applicable): Ordered Home Bound Status Requires the aid of supportive device (check all that apply): Walker Patient has a condition such that leaving home is medically contraindicated (Describe): PCP recommends patient only leaves his home for essentials (Pharmacy, doctor appts) Describe why leaving home would require a considerable and taxing effort: Requires frequent rest periods and Safety Concerns: describe Encounter Date and Reason: I certify that a FTF encounter for this patient was performed on May 12, 2024 and that such encounter was related to the primary reason the patient requires home health services. The encounter was conducted in the following manner: By me as the certifying physician, BORE MILL OPERATOR, PA or By an inpatient physician, BORE MILL OPERATOR or PA during an inpatient stay who communicated findings to me, Certification And Authentication I certify that I composed the above information based on my clinical judgment relating to this patient's medical condition and, if applicable, clinical findings communicated to me by the NPP or inpatient physician who performed the FTF encounter. Name of Provider that will be monitoring home health services: Tien Galicia
[2024-05-12 10:56] VITALS: BP 142/72; PULSE 82; RESP 18; TEMP 37; O2SAT 97
== END 2024-05-12 12:14 | disposition home or self-care (01) ==
LOC: ER 13:01 → MS 13:56
PROVIDERS: Nurse Practitioner Acute Care; Admitting Provider Hospitalist; Emergency Provider Physician Assistant; PCP Family Medicine; Responsible Provider Nurse Practitioner Family; Visit Provider Hospitalist
DX: N17.9 Acute kidney failure, unspecified (principal); R07.89 Other chest pain; E87.5 Hyperkalemia; N18.31 Chronic kidney disease, stage 3a; I50.20 Unspecified systolic (congestive) heart failure; I25.10 Atherosclerotic heart disease of native coronary artery without angina pectoris; G89.4 Chronic pain syndrome; E11.22 Type 2 diabetes mellitus with diabetic chronic kidney disease; R11.2 Nausea with vomiting, unspecified; K59.00 Constipation, unspecified; R42 Dizziness and giddiness; E53.8 Deficiency of other specified B group vitamins; G47.33 Obstructive sleep apnea (adult) (pediatric); E11.42 Type 2 diabetes mellitus with diabetic polyneuropathy; E55.9 Vitamin D deficiency, unspecified; I42.8 Other cardiomyopathies; G47.00 Insomnia, unspecified; J44.9 Chronic obstructive pulmonary disease, unspecified; E78.1 Pure hyperglyceridemia; I13.0 Hypertensive heart and chronic kidney disease with heart failure and stage 1 through stage 4 chronic kidney disease, or unspecified chronic kidney disease; F17.210 Nicotine dependence, cigarettes, uncomplicated; Z95.4 Presence of other heart-valve replacement; Z79.84 Long term (current) use of oral hypoglycemic drugs; Z79.85 Long-term (current) use of injectable non-insulin antidiabetic drugs; Z79.899 Other long term (current) drug therapy; Z95.810 Presence of automatic (implantable) cardiac defibrillator; Z73.9 Problem related to life management difficulty, unspecified; Z59.89 Other problems related to housing and economic circumstances; Z59.82 Transportation insecurity; I21.4 Non-ST elevation (NSTEMI) myocardial infarction
CPT/HCPCS: 00123; 36415; 80048; 80053; 83690; 93005; 94640; 96361; 96372; 96374; 97140; 97162; 97530; 99285; J1650; 70470; 71045; 80202; 83735; 83880; 84484; 85025; 85610; 85730; 93010; 94664; 94760; 99223; 99232; 99233; 99239; G0378; J0780; J1815; J3490

== ENCOUNTER 2024-05-14 01:15 | Outpatient (CLI) | payer MEDICARE, SELFPAY ==
--- NOTE | 2024-05-14 07:30 | DI.US_ITS ---
APPROVED REPORT EXAM: Comprehensive 2D, Doppler, and color-flow Echocardiogram Patient Location: Out-Patient Peripheral Vascular Tech: Best Salvador RDCS (AE) Indications: HFrEF, recent troponemia, CHF, SILICA SPRAY MIXER Other Information Study Quality: Fair Conclusion Severe concentric left ventricular hypertrophy. Ejection fraction is 40%. Posterior and apical segm ents are akinetic Normal right ventricular size and function Moderately y dilated left atrium. Mildly dilated right atrium Device lead noted in the right heart There is a bioprosthetic aortic valve. Mean gradient is 12 mmHg. There is no aortic regurgitation Severe mitral annular calcification Wall motion Left Ventricle Left ventricular cavity is small. Left ventricular systolic function is moderately decreased. Severe concentric left ventricular hypertrophy. Pana and posterior akinesis There is no ventricular septal d efect visualized. LVEF is 40%. Right Ventricle The right ventricle is normal size. The right ventricular systolic function is normal. Device lead is present in the right ventricle. Atria Left atrium is moderately dilated. Right atrium is mildly dilated. The interatrial septum is intact w ith no evidence for an atrial septal defect. Aortic Valve History of TAVR. There is no aortic valvular stenosis. No aortic regurgitation is present. Mitral Valve Severe mitral annular calcification. Trace mitral regurgitation. Tricuspid Valve The tricuspid valve is normal in structure. There is no tricuspid valve stenosis. Trace tricuspid reg urgitation. Pulmonic Valve The pulmonary valve is normal in structure. There is no pulmonic valvular stenosis. There is no pulmo roby valvular regurgitation. Great Vessels The aortic root is normal in size. Ascending aorta is not well visualized. IVC is normal in size and collapses >50% with inspiration. Pericardium There is no pericardial effusion. 2D Dimensions IVSD d PLAX 2.25 cm M: 0.6-1.2 LVPW d PLAX 2.34 cm M: 0.6 - 1.2 LVID d PLAX 2.69 cm M: 4.2 - 5.8 LVDs 2.19 cm M: 2.5 - 4.0 LV EF Teichholz 40.0 % FS 18.49 % LV EDV (Teich) 26.7 mL LV ESV (Teich) 16.1 mL Stroke Vol Index (Teich) 5.66 M-Mode TAPSE 2.04 cm (M/F) >1.7 Auto EF LV EDV A4C 80.7 mL LV EDV A2C 84.7 mL LV EDV BP 83.1 mL LV ESV A4C 52.8 mL LV ESV A2C 54.0 mL LV ESV BP 53.7 mL LVEF(%) A4C 34.6 % LVEF(%) A2C 36.3 % LVEF(%) BP 35.3 % LV SV A4C 27.9 ml LV SV A2C 30.8 ml LV SV BP 29.3 ml LV CO A4C 2.4 L/min LV CO A2C 2.7 L/min LV CO BP 2.5 L/min HR A4C 86.96 BPM HR A2C 86.55 BPM LV EDV Index (BP) LV Strain Long Pk Overal Avg (s) 7.19 LA Volume LA Length A4C 5.6 cm LA Length A2C 4.8 cm LA Area A4C s 21.29 cm2 LA Area A2C s 17.22 cm2 LA Vol A4C A-L 68.19 mL LA Vol A2C A-L 52.21 mL LA Vol Biplane A-L 64.6 mL LA Vol/BSA A4C A-L LA Vol/BSA A2C A-L LA Vol/BSA BP A-L 34.2 mL/m2 LA Vol A4C MOD 67.3 mL LA Vol A2C MOD 46.9 mL LA Vol BP MOD 60.3 mL RA Volume RA Area A4C 10.3 cm2 RA ESV A4C (A-L) 19.9mL RA Vol/BSA A4C A-L RA Length A4C 4.5 cm RA ESV A4C (MOD) 19.1mL LV Diastology MV E' medial 0.047 (>0.07 m/s) MV E Vmax 1.61 (0.4-1.3 m/s) MV E' lateral 0.046 (>0.1 m/s) Aortic Valve AoV Vmax 2.43 m/s AV Regurg Peak Gr. 23.71 mmHg AoV Peak Grad 23.7 mmHg AoV VTI 0.395 m AoV Mean Damien. 1.60 m/s AoV Mean Grad 12.3 mmHg Mitral Valve MV Vmax TIPS 1.81 m/s MV Mean Grad 5.3 (<2mmHg) MV VTI 0.389 m Pulmonary Valve PV Vmax 0.77 (0.5-1.5 m/s) PV Peak Grad 2.4 mmHg PV Mean Damien 0.56 m/s PV Mean Grad 1.4 mmHg Tricuspid Valve TV S' 0.11 m/s
== END 2024-05-14 01:35 ==
PROVIDERS: PCP Family Medicine; Visit Provider Internal Medicine Cardiovascular Disease
DX: I51.7 Cardiomegaly (principal)
CPT/HCPCS: 93306

== ENCOUNTER → 2024-05-28 10:21 | Outpatient (BNVA) | payer MEDICARE, SELFPAY | PROVIDERS: PCP Family Medicine; Referring Provider Family Medicine; Visit Provider Internal Medicine Cardiovascular Disease | DX: I42.9 Cardiomyopathy, unspecified (principal); Z95.810 Presence of automatic (implantable) cardiac defibrillator; Z95.2 Presence of prosthetic heart valve | CPT/HCPCS: 99213 ==

== ENCOUNTER 2024-05-28 11:37 | Outpatient (CLI) | payer MEDICARE, SELFPAY ==
[2024-05-28 11:42] LABS: Anion Gap 11.2 mmol/L (3-11); BUN 70 mg/dL (7-18); CO2 25.8 mmol/L (21.0-32.0); CREATININE 2.1 mg/dL (0.70-1.30); Calcium 10.3 mg/dL (8.5-10.1); Chloride 107 mmol/L (98-107); Estimated GFR 31.43 (mL/min/1.73m2); Glucose 169 mg/dL (74-106); Potassium 4.2 mmol/L (3.5-5.1); Sodium 144 mmol/L (136-145)
== END 2024-05-28 11:38 | disposition home or self-care (01) ==
LOC: LBO 11:37
PROVIDERS: PCP Family Medicine; Visit Provider Nurse Practitioner
DX: N18.9 Chronic kidney disease, unspecified (principal)
CPT/HCPCS: 36415; 80048

== ENCOUNTER → 2024-07-28 12:21 | Outpatient (BNVA) | payer MEDICARE, SELFPAY | PROVIDERS: PCP Family Medicine; Referring Provider Family Medicine; Visit Provider Physician Assistant Surgical | DX: J44.9 Chronic obstructive pulmonary disease, unspecified (principal); G47.33 Obstructive sleep apnea (adult) (pediatric); Z87.891 Personal history of nicotine dependence; R53.83 Other fatigue | CPT/HCPCS: 99214 ==

== ENCOUNTER → 2024-09-08 10:38 | Outpatient (BNVA) | payer MEDICARE, SELFPAY | PROVIDERS: PCP Family Medicine; Visit Provider Internal Medicine Cardiovascular Disease | DX: I42.9 Cardiomyopathy, unspecified (principal); Z95.2 Presence of prosthetic heart valve; Z95.810 Presence of automatic (implantable) cardiac defibrillator | CPT/HCPCS: 99213 ==

== ENCOUNTER → 2024-10-21 13:53 | Outpatient (BNVA) | payer MEDICARE, SELFPAY | PROVIDERS: PCP Family Medicine; Referring Provider Family Medicine; Visit Provider Internal Medicine Cardiovascular Disease | DX: T82.110A Breakdown (mechanical) of cardiac electrode, initial encounter (principal) | CPT/HCPCS: 99215 ==

== ENCOUNTER → 2025-01-26 14:08 | Outpatient (BNVA) | payer MEDICARE, SELFPAY | PROVIDERS: PCP Family Medicine; Referring Provider Family Medicine; Visit Provider Physician Assistant Surgical | DX: J44.9 Chronic obstructive pulmonary disease, unspecified (principal); R53.83 Other fatigue; Z72.0 Tobacco use; Z23 Encounter for immunization | CPT/HCPCS: 99214; 90471; 90684 ==

== ENCOUNTER → 2025-02-02 10:27 | Outpatient (BNVA) | payer MEDICARE, SELFPAY | PROVIDERS: PCP Family Medicine; Referring Provider Family Medicine; Visit Provider Internal Medicine Cardiovascular Disease | DX: T82.110D Breakdown (mechanical) of cardiac electrode, subsequent encounter (principal); I42.9 Cardiomyopathy, unspecified | CPT/HCPCS: 99213 ==